=== PATIENT | male | born 1945 | race American Indian/Alaskan Native ===

== ENCOUNTER 2018-05-17 14:24 | Inpatient (IN) | payer MEDICARE, OTHER ==
--- NOTE | 2018-05-17 15:28 | CP.PCM.CON ---
<Ronald Vergara - Last Filed: 05/17/18 18:56> History of Present Illness - History of Present Illness History of Present Illness: GI Fellow PGY4, Consult note. Mino Bermeo is a 73yo M with history of throat cancer s/p trach. He has been having difficulty eating for the 3 days. This was a sudden onset. He is unable to maintain secretions or swallow water. Unfortunately, patient is having difficulty with external voice box, so history is limited. His significant other is at bedside, and does not know his history very well. He states he is not urinating well and it is dark. PET/CT in 01/2017 showed no recurrence of mass. Past medical history - Head and neck cancer, seizure history, COPD PSHx - Tracheostomy. FMHx - unknown SocHx - Previous heavy smoker. Denies current etoh use. 12pt ROS neg except for above. Past Patient History - Past Medical History & Family History Past Medical History?: Yes - Past Social History Smoking Status: Former Smoker - CARDIAC Hx Cardiac Disorders: No - PULMONARY Hx Respiratory Disorders: Yes Hx Asthma: Yes Hx Bronchitis: Yes Hx Chronic Obstructive Pulmonary Disease (COPD): Yes Hx Emphysema: Yes Hx Sleep Apnea: Yes Other/Comment: Permanent tracheostomy 2013, pt. uses [employer] (digital voicebox) to speak due to tracheostomy - NEUROLOGICAL Hx Neurological Disorder: Yes Hx Seizures: Yes (Well controlled with medication) - HEENT Hx HEENT Problems: Yes Other/Comment: blurry vision mild - RENAL Hx Chronic Kidney Disease: No - HEMATOLOGICAL/ONCOLOGICAL Hx Cancer: Yes (Throat cancer) - INTEGUMENTARY Hx Dermatological Problems: No Other/Comment: Dry skin scattered throughout body - MUSCULOSKELETAL/RHEUMATOLOGICAL Hx Musculoskeletal Disorders: Yes Hx Arthritis: Yes (Both Knees) - GASTROINTESTINAL Hx Gastrointestinal Disorders: No - GENITOURINARY/GYNECOLOGICAL Hx Genitourinary Disorders: No - PSYCHIATRIC Hx Psychophysiologic Disorder: No Hx Substance Use: No - SURGICAL HISTORY Hx Surgeries: Yes Other/Comment: Permanent tracheostomy, Neck surgery to remove Ca - ANESTHESIA Hx Anesthesia: Yes Hx Anesthesia Reactions: No Hx Malignant Hyperthermia: No Meds Allergies/Adverse Reactions: Allergies Allergy/AdvReac Type Severity Reaction Status Date / Time No Known Allergies Allergy Unverified 02/11/15 14:52 Physical Exam - Constitutional Appears: Non-toxic, No Acute Distress, Cachectic, Chronically Ill - Head Exam Head Exam: NORMAL INSPECTION - Eye Exam Eye Exam: Normal appearance - ENT Exam ENT Exam: Mucous Membranes Moist - Neck Exam Additional comments: Trachostomy, well healed. - Respiratory Exam Respiratory Exam: Clear to Auscultation Bilateral, NORMAL BREATHING PATTERN - Cardiovascular Exam Cardiovascular Exam: REGULAR RHYTHM - GI/Abdominal Exam GI & Abdominal Exam: Normal Bowel Sounds, Soft. absent: Organomegaly, Tenderness - Extremities Exam Extremities exam: Positive for: normal inspection - Neurological Exam Neurological exam: Alert, Oriented x3 - Psychiatric Exam Psychiatric exam: Normal Affect, Normal Mood - Skin Skin Exam: Dry, Normal Color Results - Vital Signs Recent Vital Signs: Last Vital Signs Temp 98.8 F 05/17/18 15:04 Pulse 91 H 05/17/18 15:04 Resp 18 05/17/18 15:04 BP 128/74 05/17/18 15:04 Pulse Ox 98 05/17/18 15:04 - Labs Result Diagrams: 05/17/18 16:55 05/17/18 16:55 Assessment & Plan - Assessment and Plan (Free Text) Assessment: #Acute dysphagia #Throat cancer s/p trach #Malnourished #Seizure disorder #COPD Plan: -need CBC and CMP -Stat CT neck/chest w/o contrast to evaluate for mass and esophagus. Need to r/ o obstructing mass vs food impaction -He will need EGD urgently to evaluate if concern for food bolus. Plan for tomorrow as he is currently stable, and complex anatomy. -IVF 150cc/hr -NPO - Date & Time Date: 05/17/18 Time: 15:54 <Juaquin Jones V - Last Filed: 05/18/18 00:52> Meds - Medications Medications: Current Medications Albuterol/Ipratropium (Duoneb 3 Mg/0.5 Mg (3 Ml) Ud) 3 ml IH TIDRESP [facility] Heparin Sodium (Porcine) (Heparin) 5,000 units SC Q8 [facility] PRN Reason: Protocol Last Admin: 05/17/18 23:10 Dose: 5,000 units Potassium Chloride 40 meq/ (Dextrose/Sodium Chloride) 1,020 mls @ 75 mls/hr IV .[id number] [facility] Last Admin: 05/17/18 21:09 Dose: 75 mls/hr Levetiracetam 100 mg/ Sodium (Chloride) 101 mls @ 460 mls/hr IV Q12 [facility] Last Admin: 05/17/18 22:03 Dose: 460 mls/hr Lorazepam (Ativan) 1 mg IV Q4 PRN; Protocol PRN Reason: Seizure activity Pantoprazole Sodium (Protonix Inj) 40 mg IVP DAILY [facility] Phenytoin (Dilantin) 100 mg IVP Q8 [facility] Last Admin: 05/17/18 23:11 Dose: 100 mg Results - Vital Signs Recent Vital Signs: Last Vital Signs Temp 99.0 F 05/17/18 23:58 Pulse 95 H 05/17/18 23:58 Resp 20 05/17/18 23:58 BP 127/76 05/17/18 23:58 Pulse Ox 97 05/17/18 21:40 - Labs Result Diagrams: 05/17/18 16:55 05/17/18 16:55 Labs: Laboratory Results - last 24 hr 05/18/18 00:41 POC Glucose (mg/dL) 130 H Attending/Attestation - Attestation I have personally seen and examined this patient.: Yes I have fully participated in the care of the patient.: Yes I have reviewed all pertinent clinical information: Yes Notes (Text): This is an addendum to GI consult report dictated by the GI Fellow.The patient was seen and examined earlier. Medical records, lab studies, imagings were reviewed. Last 24 hours events reviewed. 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 Tapia earlier Discussed with the ER attending We will review the CT scan, IV hydration Plan for EGD Check coagulation profile Discussed with the family 05/18/18 00:49
--- NOTE | 2018-05-17 16:16 | RAD ---
Date of service: 05/17/2018 HISTORY: unable to swallow x 3 days COMPARISON: 06/23/2014 FINDINGS: LUNGS: No active pulmonary disease. PLEURA: No significant pleural effusion identified, no pneumothorax apparent. CARDIOVASCULAR: No radiographic findings to suggest acute or significant cardiovascular disease. OSSEOUS STRUCTURES: No significant abnormalities. VISUALIZED UPPER ABDOMEN: Normal. OTHER FINDINGS: None. IMPRESSION: No active disease. No significant interval change compared to the prior examination(s).
[2018-05-17] MEDS ORDERED: Lactated Ringer's 1,000 ML IV SCH (16:30)
[2018-05-17 17:11] LABS: BASO # 0.03 K/mm3 (0.0-2.0); BASO % 0.3 % (0.0-3.0); EOS # 0.1 (0.0-0.7); EOS % 0.7 % (1.5-5.0); GRAN # 8.99 (1.4-6.5); HEMOGLOBIN 11.7 g/dL (14.0-18.0); LYMPH # 1.8 (1.2-3.4); LYMPH % 15.6 % (22.0-35.0); MEAN CELL VOLUME 90.8 fl (80.0-105.0); MEAN CORPUSCULAR HEMOGLOBIN 29.9 pg (25.0-35.0); MONO # 0.6 (0.1-0.6); MONO % 5.4 % (1.0-6.0); RBC 3.91 10^6/uL (3.5-6.1); RED CELL DISTRIBUTION WIDTH 13.2 % (11.5-14.5); WHITE BLOOD COUNT 11.5 10^3/ul (4.5-11.0)
[2018-05-17 17:20] LABS: ALBUMIN 4.4 g/dL (3.0-4.8); ALT/SGPT 24 U/L (7-56); AST/SGOT 38 U/L (17-59); BLOOD UREA NITROGEN 19 mg/dL (7-21); CALCIUM 10.2 mg/dL (8.4-10.5); GFR NON-AFRICAN AMERICAN > 60
--- NOTE | 2018-05-17 17:27 | ED PDOC ---
Arrival/HPI - General Chief Complaint: ENT Problem Time Seen by Provider: 05/17/18 15:22 Historian: Patient - History of Present Illness Narrative History of Present Illness (Text): 05/17/18 17:13 73yr old male with hx of throat cancer s/p trach presents today with 3 day history of difficulty swallowing. pt unable to tolerate secretions. pt c/o pain to throat. denies fever/chills. no abdominal pain. no cp or sob. pt was sent in from dr. syed's office for evaluation. no dizziness or weakness. states patient hasnt eaten in 3 days. Per , patient was eating normally at home prior to symptoms onset. no fever/chills. no other complaints. Past Medical History - Provider Review Nursing Documentation Reviewed: Yes - Travel History Have you recently traveled outside [place] w/in the past 3 mons?: No - Cardiac Hx Cardiac Disorders: No - Pulmonary Hx Respiratory Disorders: Yes Hx Asthma: Yes Hx Bronchitis: Yes Hx Chronic Obstructive Pulmonary Disease (COPD): Yes Hx Emphysema: Yes Hx Sleep Apnea: Yes Other/Comment: Permanent tracheostomy 2014, pt. uses [employer] (digital voicebox) to speak due to tracheostomy - Neurological Hx Neurological Disorder: Yes Hx Seizures: Yes (Well controlled with medication) - HEENT Hx HEENT Disorder: Yes Other/Comment: blurry vision mild - Renal Hx Renal Disorder: No - Hematological/Oncological Hx Cancer: Yes (Throat cancer) - Integumentary Hx Dermatological Disorder: No Other/Comment: Dry skin scattered throughout body - Musculoskeletal/Rheumatological Hx Musculoskeletal Disorders: Yes Hx Arthritis: Yes (Both Knees) - Gastrointestinal Hx Gastrointestinal Disorders: No - Genitourinary/Gynecological Hx Genitourinary Disorders: No - Psychiatric Hx Psychophysiologic Disorder: No Hx Substance Use: No - Surgical History Other/Comment: Permanent tracheostomy, Neck surgery to remove Ca - Anesthesia Hx Anesthesia: Yes Hx Anesthesia Reactions: No Hx Malignant Hyperthermia: No Family/Social History - Physician Review Nursing Documentation Reviewed: Yes Family/Social History: Unknown Family HX Smoking Status: Former Smoker Hx Alcohol Use: No Hx Substance Use: No Allergies/Home Meds Allergies/Adverse Reactions: Allergies No Known Allergies Allergy (Unverified 02/11/15 14:52) Home Medications: Home Meds Medication Instructions Recorded Confirmed Hydrocortisone 2.5% 30 applic TOP BID 04/14/15 04/23/15 Levocetirizine Dihydrochloride 5 mg PO DAILY 04/14/15 04/23/15 [Levocetirizine Dihydrochloride] Montelukast [Singulair] 10 mg PO DAILY 04/14/15 04/23/15 Omeprazole 40 mg PO DAILY 04/14/15 04/23/15 Phenytoin Sodium Extended 100 mg PO TID 04/14/15 04/23/15 [Dilantin] Tiotropium Bode Inhaler 1 inhaler INH DAILY 04/14/15 04/23/15 [Spiriva Inhalation Handihaler Device] levETIRAcetam Solution [Keppra] 100 mg PO BID 04/14/15 04/23/15 Review of Systems - Review of Systems Constitutional: absent: Fatigue, Fevers ENT: Sore Throat Respiratory: absent: SOB, Cough Cardiovascular: absent: Chest Pain, Palpitations Gastrointestinal: absent: Abdominal Pain, Constipation, Diarrhea, Nausea, Vomiting Genitourinary Male: absent: Dysuria, Frequency Musculoskeletal: absent: Arthralgias, Back Pain, Neck Pain Skin: absent: Rash, Pruritis Neurological: absent: Headache, Dizziness Psychiatric: absent: Anxiety, Depression Physical Exam Vital Signs Reviewed: Yes Vital Signs Temp Pulse Resp BP Pulse Ox 05/17/18 15:04 98.8 F 91 H 18 128/74 98 Temperature: Afebrile Blood Pressure: Normal Pulse: Regular Respiratory Rate: Normal Appearance: Positive for: Well-Appearing, Non-Toxic, Comfortable Pain Distress: None Mental Status: Positive for: Alert and Oriented X 3 - Systems Exam Head: Present: Atraumatic Mouth: Present: Moist Mucous Membranes. No: Trismus Pharnyx: Present: Normal, Other (stoma present; no erythema.). No: ERYTHEMA, EXUDATE, TONSILS ENLARGED, Peritonsilar Swelling, Uvular Deviation Neck: Present: Normal Range of Motion Respiratory/Chest: Present: Clear to Auscultation, Good Air Exchange. No: Respiratory Distress, Accessory Muscle Use Cardiovascular: Present: Regular Rate and Rhythm, Normal S1, S2. No: Murmurs Medical Decision Making ED Course and Treatment: 05/17/18 17:38 73yr old male with difficulty swallowing x 3 days. cbc; wbc;11.5 cmp; wnl pt was seen and evaluated by dr. kunal who ordered CT of neck and chest without contrast. pt unable to tolerate secretions, spitting into cup, but resting comfortably. pt reassessment; pt resting comfortably in er. no distress. CT; FINDINGS: PHARYNX: Larger tracheotomy defect. At at or just above the level of the tracheotomy there is a large round/elliptical shaped soft tissue mass density, the epicenter of which is located on the right side although does cross midline anteriorly and to a lesser degree posteriorly to the level of the posterior oropharynx. Note that the true vocal cords may have been true vocal cords and arytenoid cartilages are not visualized on this exam and may have been resected however clinical correlation. This lesion measures approximately 5.7 CC x 3.7 Trans x 3.6 AP. Lesion probably represents recurrent tumor given the patient's findings of what probably were a total laryngectomy. The approximately 2.9 mm calcification along the anterior superior margin of this lesion. The additionally, there also appears to be extension into the anterior subcutaneous tissues in the submandibular region. . There may also be debris within the oropharynx above the level of the mass . There are a few small nonspecific bilateral cervical lymph nodes LYMPH NODES: There are a few small left posterior submandibular lymph nodes. VASCULATURE: Poorly delineated due to the lack of circulating intravenous contrast material. GLANDS: Parotid and left submandibular gland appear unremarkable. Right submandibular gland presumably has been resected with surrounding infiltration and scarring changes in the anterolateral soft tissues of the neck of superficial to the expected surgical bed. CERVICAL SPINE: Multilevel degenerative spondylosis of the cervical spine. There are no acute compression fractures no retropulsed fragments. Vertebral bodies exhibit normal stature and alignment. LUNGS: And centrilobular and panlobular emphysematous changes with multiple of blebs and bullous changes in the upper lobes right greater than left. The no focal consolidation. No obvious parenchymal masses. MEDIASTINUM: Heart size within range of normal. No significant pericardial effusion. The the ascending thoracic aorta measures approximately 3 point 7 cm and descending thoracic aorta measures approximately 2.6 cm. Pulmonary trunk measures approximately 2.7 cm. Normal sized heart. Pulmonary arterial truck unremarkable. No vascular congestion. There are several small nonspecific mediastinal lymph nodes. Evaluation for hilar adenopathy limited due to the lack of circulating intravenous contrast material. PLEURA: No pleural fluid. No pneumothorax. BONES: No acute compression fractures no retropulsed fragments. Vertebral bodies exhibit normal stature. Multilevel partially bridging anterior osteophyte formation throughout the upper through the lower thoracic and upper lumbar region No definitive suspicious lytic or blastic lesions are identified. OTHER FINDINGS: Large partially exophytic cortical cyst arising from the lateral mid to -upper pole left kidney. . Mildly enlarged left adrenal gland. IMPRESSION: There is a large soft tissue mass density on the epicenter of which is located in presumably expected location of the glottis to the right of midline in this patient who appears to have been total laryngectomy. . 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 There may also be extension into the anterior subcutaneous tissues on the right side. Apparent resection right submandibular gland with overlying subcutaneous infiltration and scarring. Centrilobular emphysematous changes upper lobe predominance with multiple blebs and bullous changes upper lung segura bilaterally. 05/17/18 18:51 patient with large soft tissue mass affected swallowing. i discussed results with patient in depth; pt is resting comfortably in er. no distress. case discussed with dr. Roe. accepts admission. impression; oropharyngeal mass, dysphagia admit - Lab Interpretations Lab Results: 05/17/18 16:55 05/17/18 16:55 Lab Results 05/17/18 16:55: WBC 11.5 H D, RBC 3.91, Hgb 11.7 L, Hct 35.5 L, MCV 90.8, MCH 29.9, MCHC 33.0, RDW 13.2, Plt Count 466 H, MPV 10.0, Gran % 78.0 H, Lymph % ( Auto) 15.6 L, Wetzel % (Auto) 5.4, Eos % (Auto) 0.7 L, Baso % (Auto) 0.3, Gran # 8.99 H, Lymph # (Auto) 1.8, Wetzel # (Auto) 0.6, Eos # (Auto) 0.1, Baso # (Auto) 0.03 05/17/18 16:55: Sodium 146, Potassium 3.5 L, Chloride 105, Carbon Dioxide 26, Anion Gap 19, BUN 19, Creatinine 0.9, Est GFR ( Amer) > 60, Est GFR (Non- Af Amer) > 60, Random Glucose 116 H, Calcium 10.2, Total Bilirubin 0.6, AST 38, ALT 24, Alkaline Phosphatase 107, Total Protein 8.9 H, Albumin 4.4, Globulin 4.5 , Albumin/Globulin Ratio 1.0 L - RAD Interpretation Radiology Orders: 05/17/18 15:23 CHEST PORTABLE [RAD] Stat 05/17/18 16:16 NECK & CHEST W/O CONTRAST [CT] Stat - Medication Orders Current Medication Orders: Albuterol/Ipratropium (Duoneb 3 Mg/0.5 Mg (3 Ml) Ud) 3 ml IH TIDRESP [facility] Potassium Chloride 40 meq/ (Dextrose/Sodium Chloride) 1,020 mls @ 75 mls/hr IV .[id number] [facility] Levetiracetam 100 mg/ Sodium (Chloride) 101 mls @ 460 mls/hr IV Q12 [facility] Pantoprazole Sodium (Protonix Inj) 40 mg IVP DAILY [facility] Phenytoin (Dilantin) 100 mg IVP Q8 [facility] Discontinued Medications Lactated Ringer's (Lactated Ringer's) 1,000 mls @ 70 mls/hr IV .[id number] [facility] Last Admin: 05/17/18 17:03 Dose: 70 mls/hr eMAR Start Stop Document 05/17/18 17:03 EQ (Rec: 05/17/18 17:03 EQ [id number]) Intravenous Solution Start Date 05/17/18 Start Time 17:03 Disposition/Present on Arrival - Present on Arrival Any Indicators Present on Arrival: No History of DVT/PE: No History of Uncontrolled Diabetes: No Urinary Catheter: No History of Decub. Ulcer: No History Surgical Site Infection Following: None - Disposition Have Diagnosis and Disposition been Completed?: Yes Diagnosis: Oropharyngeal mass, Dysphagia Disposition: HOSPITALIZED Disposition Time: 18:57 Patient Plan: Admission Condition: FAIR
--- NOTE | 2018-05-17 18:46 | CT ---
Date of service: 05/17/2018. PROCEDURE: CT Neck and chest HISTORY: Dysphagia. COMPARISON: Comparison made with prior PET-CT scan 01/19/2017. TECHNIQUE: Contiguous helical/transaxial sections of the neck and chest performed without intravenous contrast material. Additional 2D sagittal and coronal reformats generated. This CT exam was performed using one or more of the following dose reduction techniques: Automated exposure control, adjustment of the mA and/or kV according to patient size, and/or use of iterative reconstruction technique. Radiation dose: Total DLP = 400.46 MGy-cm. FINDINGS: PHARYNX: Larger tracheotomy defect. At at or just above the level of the tracheotomy there is a large round/elliptical shaped soft tissue mass density, the epicenter of which is located on the right side although does cross midline anteriorly and to a lesser degree posteriorly to the level of the posterior oropharynx. Note that the true vocal cords may have been true vocal cords and arytenoid cartilages are not visualized on this exam and may have been resected however clinical correlation. This lesion measures approximately 5.7 CC x 3.7 Trans x 3.6 AP. Lesion probably represents recurrent tumor given the patient's findings of what probably were a total laryngectomy. The approximately 2.9 mm calcification along the anterior superior margin of this lesion. The additionally, there also appears to be extension into the anterior subcutaneous tissues in the submandibular region. . There may also be debris within the oropharynx above the level of the mass . There are a few small nonspecific bilateral cervical lymph nodes LYMPH NODES: There are a few small left posterior submandibular lymph nodes. VASCULATURE: Poorly delineated due to the lack of circulating intravenous contrast material. GLANDS: Parotid and left submandibular gland appear unremarkable. Right submandibular gland presumably has been resected with surrounding infiltration and scarring changes in the anterolateral soft tissues of the neck of superficial to the expected surgical bed. CERVICAL SPINE: Multilevel degenerative spondylosis of the cervical spine. There are no acute compression fractures no retropulsed fragments. Vertebral bodies exhibit normal stature and alignment. LUNGS: And centrilobular and panlobular emphysematous changes with multiple of blebs and bullous changes in the upper lobes right greater than left. The no focal consolidation. No obvious parenchymal masses. MEDIASTINUM: Heart size within range of normal. No significant pericardial effusion. The the ascending thoracic aorta measures approximately 3 point 7 cm and descending thoracic aorta measures approximately 2.6 cm. Pulmonary trunk measures approximately 2.7 cm. Normal sized heart. Pulmonary arterial truck unremarkable. No vascular congestion. There are several small nonspecific mediastinal lymph nodes. Evaluation for hilar adenopathy limited due to the lack of circulating intravenous contrast material. PLEURA: No pleural fluid. No pneumothorax. BONES: No acute compression fractures no retropulsed fragments. Vertebral bodies exhibit normal stature. Multilevel partially bridging anterior osteophyte formation throughout the upper through the lower thoracic and upper lumbar region No definitive suspicious lytic or blastic lesions are identified. OTHER FINDINGS: Large partially exophytic cortical cyst arising from the lateral mid to -upper pole left kidney. . Mildly enlarged left adrenal gland. IMPRESSION: There is a large soft tissue mass density on the epicenter of which is located in presumably expected location of the glottis to the right of midline in this patient who appears to have been total laryngectomy. . 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 There may also be extension into the anterior subcutaneous tissues on the right side. Apparent resection right submandibular gland with overlying subcutaneous infiltration and scarring. Centrilobular emphysematous changes upper lobe predominance with multiple blebs and bullous changes upper lung segura bilaterally. .
--- NOTE | 2018-05-17 19:30 | CP.PCM.HP ---
<Carly Villasenor - Last Filed: 05/17/18 22:36> History of Present Illness - History of Present Illness History of Present Illness: PGY-[address] Reardon CC: dysphagia x 3 days Mr Bermeo, 73 M, with PMHx throat cancer (Dx 2013) s/p trach presents today with 3 day history of difficulty swallowing, sudden onset. patient is having difficulty with external voice box, so history is limited. pt unable to tolerate secretions, spitting into cups, but resting comfortably. Denies pain to throat. denies fever/chills. no abdominal pain. no cp or sob. pt was sent in from dr. jones's office for evaluation. Per , patient was eating normally at home prior to symptoms onset. However, pt did not take any meds lately. I called pt's , daughter, and sister to obtained history and verify meds/doctors, but none were able to provide the info. cbc: wbc: 11.5 cmp: K 3.5 CT neck/chest: (+) large soft tissue mass density on the epicenter of which is located in presumably expected location of the glottis to the right of midline in this patient who appears to have been total laryngectomy. . 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 There may also be extension into the anterior subcutaneous tissues on the right side. Apparent resection right submandibular gland with overlying subcutaneous infiltration and scarring. Centrilobular emphysematous changes upper lobe predominance with multiple blebs and bullous changes upper lung segura bilaterally. ROS - no dizziness or weakness. states patient hasnt eaten in 3 days. no fever/chills. no other complaints. PMHx Throat cancer, s/p trach COPD Seizure Arthritis in knees ? Diabetes PSH Tracheostomy 2013 FH Mother colon ca. Brother 3 years ago for liver ca SH Previous heavy smoker. Denies current etoh use. All NKDA Med Levocetirizine Monteluksat, toptropium Phenytoin, Keppra Omperazole PMD - Dr Alvarado GI - Dr Jones Onc - "A doctor" in [facility] - Dr Allen Health care proxy: Pt has a , but pt's sister helps make decision. However, there is no signed paper to document health proxy. Present on Admission - Present on Admission Any Indicators Present on Admission: No Past Patient History - Past Medical History & Family History Past Medical History?: Yes - Past Social History Smoking Status: Former Smoker - CARDIAC Hx Cardiac Disorders: No - PULMONARY Hx Respiratory Disorders: Yes Hx Asthma: Yes Hx Bronchitis: Yes Hx Chronic Obstructive Pulmonary Disease (COPD): Yes Hx Emphysema: Yes Hx Sleep Apnea: Yes Other/Comment: Permanent tracheostomy 2013, pt. uses [employer] (digital voicebox) to speak due to tracheostomy - NEUROLOGICAL Hx Neurological Disorder: Yes Hx Seizures: Yes (Well controlled with medication) - HEENT Hx HEENT Problems: Yes Other/Comment: blurry vision mild - RENAL Hx Chronic Kidney Disease: No - HEMATOLOGICAL/ONCOLOGICAL Hx Cancer: Yes (Throat cancer) - INTEGUMENTARY Hx Dermatological Problems: No Other/Comment: Dry skin scattered throughout body - MUSCULOSKELETAL/RHEUMATOLOGICAL Hx Musculoskeletal Disorders: Yes Hx Arthritis: Yes (Both Knees) - GASTROINTESTINAL Hx Gastrointestinal Disorders: No - GENITOURINARY/GYNECOLOGICAL Hx Genitourinary Disorders: No - PSYCHIATRIC Hx Psychophysiologic Disorder: No Hx Substance Use: No - SURGICAL HISTORY Other/Comment: Permanent tracheostomy, Neck surgery to remove Ca - ANESTHESIA Hx Anesthesia: Yes Hx Anesthesia Reactions: No Hx Malignant Hyperthermia: No Meds Allergies/Adverse Reactions: Allergies Allergy/AdvReac Type Severity Reaction Status Date / Time No Known Allergies Allergy Unverified 02/11/15 14:52 Physical Exam - Constitutional Appears: No Acute Distress Additional comments: Pt holding cup to contain his saliva, no blood - Head Exam Head Exam: ATRAUMATIC, NORMAL INSPECTION, NORMOCEPHALIC - Eye Exam Eye Exam: EOMI, Normal appearance, PERRL. absent: Scleral icterus Pupil Exam: NORMAL ACCOMODATION - ENT Exam ENT Exam: Mucous Membranes Moist Additional comments: slightly injected throats. No visible edema - Neck Exam Additional comments: dressing of trach d/c/i - Respiratory Exam Respiratory Exam: Clear to Auscultation Bilateral. absent: Rales, Rhonchi, Wheezes - Cardiovascular Exam Cardiovascular Exam: REGULAR RHYTHM, +S1, +S2. absent: Systolic Murmur - GI/Abdominal Exam GI & Abdominal Exam: Normal Bowel Sounds, Soft. absent: Distended, Firm, Rigid , Tenderness - Extremities Exam Extremities exam: Positive for: normal capillary refill, pedal pulses present. Negative for: calf tenderness, pedal edema - Back Exam Back exam: absent: CVA tenderness (L), CVA tenderness (R) - Neurological Exam Neurological exam: Alert, Oriented x3 - Psychiatric Exam Psychiatric exam: Normal Affect, Normal Mood - Skin Skin Exam: Dry, Warm Results - Vital Signs Recent Vital Signs: Last Vital Signs Temp 98.8 F 05/17/18 15:04 Pulse 91 H 05/17/18 15:04 Resp 18 05/17/18 15:04 BP 128/74 05/17/18 15:04 Pulse Ox 98 05/17/18 15:04 - Labs Result Diagrams: 05/17/18 16:55 05/17/18 16:55 Labs: Laboratory Results - last 24 hr 05/17/18 05/17/18 16:55 16:55 WBC 11.5 H D RBC 3.91 Hgb 11.7 L Hct 35.5 L MCV 90.8 MCH 29.9 MCHC 33.0 RDW 13.2 Plt Count 466 H MPV 10.0 Gran % 78.0 H Lymph % (Auto) 15.6 L [place] % (Auto) 5.4 Eos % (Auto) 0.7 L Baso % (Auto) 0.3 Gran # 8.99 H Lymph # (Auto) 1.8 [place] # (Auto) 0.6 Eos # (Auto) 0.1 Baso # (Auto) 0.03 Sodium 146 Potassium 3.5 L Chloride 105 Carbon Dioxide 26 Anion Gap 19 BUN 19 Creatinine 0.9 Est GFR ( Amer) > 60 Est GFR (Non-Af Amer) > 60 Random Glucose 116 H Calcium 10.2 Total Bilirubin 0.6 AST 38 ALT 24 Alkaline Phosphatase 107 Total Protein 8.9 H Albumin 4.4 Globulin 4.5 Albumin/Globulin Ratio 1.0 L Assessment & Plan - Assessment and Plan (Free Text) Plan: Mr Bermeo, 73 M, with PMHx seizure and throat cancer (Dx 2012) s/p trach presents today with 3 day history of difficulty swallowing, sudden onset, and skipped meds Dysphagia possibly due to mass in glottic area (+) large soft tissue mass density R glottic area s/p total laryngectomy, suspicious on mets - NPO; D5/NS with K@75cc/hr - urgent EGD planning. - Continue POx; O2 PRN - GI, ENT consult - aspiration precaution - suction prn Hx seizure - IV keppra and dilantin - ativan q4 prn for breakthrough seizure Hx COPD - Duoneb ? diabetes - Check A1C - Accu check. Hold ISSS for now Care planning - Find out who oncologist is. Need oncology consult - Pt will need help to draft healthcare proxy paper - Pt has a , but pt's [place] helps make decision. However, there is no signed paper to document health proxy. - palliative consult Prophylaxus - heparin SC and protonix IV s/r/d/w Dr Roe <Jesu Roe - Last Filed: 05/18/18 06:38> Results - Vital Signs Recent Vital Signs: Last Vital Signs Temp 98.6 F 05/18/18 05:45 Pulse 85 05/18/18 05:45 Resp 20 05/18/18 05:45 BP 126/82 05/18/18 05:45 Pulse Ox 97 05/18/18 05:45 - Labs Result Diagrams: 05/17/18 16:55 05/17/18 16:55 Labs: Laboratory Results - last 24 hr 05/18/18 05/18/18 00:41 06:23 POC Glucose (mg/dL) 130 H 122 H Attending/Attestation - Attestation I have personally seen and examined this patient.: Yes I have fully participated in the care of the patient.: Yes I have reviewed all pertinent clinical information: Yes
[2018-05-17] MEDS: Potassium Chloride 40 MEQ in Dextrose 5%/0.9% NS 1,000 ML IV SCH (21:09)
[2018-05-17] MEDS: levETIRAcetam 100 MG in Sodium Chloride 0.9% 100 ML IV SCH (22:03)
[2018-05-17] MEDS: Phenytoin 100 mg/2 ml Inj IVP SCH (23:11)
[2018-05-18 00:07] VITALS: BMI 24.7
[2018-05-18] MEDS: Phenytoin 100 mg/2 ml Inj IVP SCH ×3 (06:13→22:25)
[2018-05-18] MEDS: Albuterol-Ipratrop 3 mg / 0.5 (3 ml) UD IH SCH ×3 (07:37→19:44)
[2018-05-18 08:02] LABS: INR 1.35; PROTHROMBIN TIME 15.6 SECONDS (9.4-12.5)
[2018-05-18 08:21] LABS: BASO # 0.02 K/mm3 (0.0-2.0); BASO % 0.2 % (0.0-3.0); EOS # 0.1 (0.0-0.7); EOS % 0.7 % (1.5-5.0); GRAN # 7.17 (1.4-6.5); GRAN % 79.8 % (50.0-68.0); HEMOGLOBIN 10.4 g/dL (14.0-18.0); LYMPH # 1.1 (1.2-3.4); LYMPH % 12.3 % (22.0-35.0); MEAN CELL VOLUME 90.4 fl (80.0-105.0); MEAN CORPUSCULAR HEMOGLOBIN 29.3 pg (25.0-35.0); MEAN CORPUSCULAR HGB CONC 32.4 g/dl (31.0-37.0); MEAN PLATELET VOLUME 10.1 fl (7.0-11.0); MONO # 0.6 (0.1-0.6); RBC 3.55 10^6/uL (3.5-6.1); RED CELL DISTRIBUTION WIDTH 13.1 % (11.5-14.5)
[2018-05-18 08:31] LABS: ALBUMIN 3.8 g/dL (3.0-4.8); ALT/SGPT 24 U/L (7-56); AST/SGOT 28 U/L (17-59); BLOOD UREA NITROGEN 14 mg/dL (7-21); CALCIUM 9.6 mg/dL (8.4-10.5); GFR NON-AFRICAN AMERICAN > 60
[2018-05-18] MEDS: levETIRAcetam 100 MG in Sodium Chloride 0.9% 100 ML IV SCH ×2 (09:36→22:24)
[2018-05-18] MEDS: Potassium Chloride 40 MEQ in Dextrose 5%/0.9% NS 1,000 ML IV SCH (09:37)
--- NOTE | 2018-05-18 10:38 | CP.PCM.PN ---
<Myron Amezquita - Last Filed: 05/18/18 10:38> Subjective - Date & Time of Evaluation Date of Evaluation: 05/18/18 Time of Evaluation: 09:30 - Subjective Subjective: PGY6 GI Fellow Progress Note Patient seen and examined bedside this morning. Patient is unable to tolerate saliva and is spitting in to a basin at bedside. Admits to pain with attempts at swallowing. No events overnight. 12 system ROS performed and negative except where stated Objective - Vital Signs/Intake and Output Vital Signs (last 24 hours): Temp Pulse Resp BP Pulse Ox 98.6 F 85 20 126/82 97 05/18/18 05:45 05/18/18 07:44 05/18/18 05:45 05/18/18 05:45 05/18/18 05:45 Intake and Output: 05/18/18 05/18/18 06:59 18:59 Intake Total 1000 Output Total 150 Balance 850 - Medications Medications: Current Medications Albuterol/Ipratropium (Duoneb 3 Mg/0.5 Mg (3 Ml) Ud) 3 ml IH TIDRESP [facility] Last Admin: 05/18/18 07:37 Dose: 3 ml Heparin Sodium (Porcine) (Heparin) 5,000 units SC Q8 [facility] PRN Reason: Protocol Last Admin: 05/18/18 06:13 Dose: 5,000 units Potassium Chloride 40 meq/ (Dextrose/Sodium Chloride) 1,020 mls @ 75 mls/hr IV .[id number] [facility] Last Admin: 05/18/18 09:37 Dose: 75 mls/hr Levetiracetam 100 mg/ Sodium (Chloride) 101 mls @ 460 mls/hr IV Q12 [facility] Last Admin: 05/18/18 09:36 Dose: 460 mls/hr Lorazepam (Ativan) 1 mg IV Q4 PRN; Protocol PRN Reason: Seizure activity Pantoprazole Sodium (Protonix Inj) 40 mg IVP DAILY [facility] Last Admin: 05/18/18 09:38 Dose: 40 mg Phenytoin (Dilantin) 100 mg IVP Q8 [facility] Last Admin: 05/18/18 06:13 Dose: 100 mg - Labs Labs: 05/18/18 06:45 05/18/18 06:45 PT 15.6 SECONDS (9.4-12.5) H 05/18/18 06:45 INR 1.35 05/18/18 06:45 - Constitutional Appears: No Acute Distress, Chronically Ill - Eye Exam Eye Exam: EOMI, PERRL - ENT Exam ENT Exam: Mucous Membranes Moist Additional comments: tracheostomy - Respiratory Exam Respiratory Exam: Clear to Ausculation Bilateral. absent: Rales, Rhonchi, Wheezes - Cardiovascular Exam Cardiovascular Exam: RRR, +S1, +S2 - GI/Abdominal Exam GI & Abdominal Exam: Soft, Normal Bowel Sounds. absent: Distended, Firm, Guarding, Rigid, Tenderness, Organomegaly - Extremities Exam Extremities Exam: Normal Inspection. absent: Pedal Edema - Neurological Exam Neurological Exam: Alert, Awake, Oriented x3 - Psychiatric Exam Psychiatric exam: Normal Affect, Normal Mood - Skin Skin Exam: Dry, Warm Assessment and Plan - Assessment and Plan (Free Text) Assessment: Patient is a 73yo male with PMHx significant for laryngeal cancer s/p tracheostomy who presents with 3 days of dysphagia -Acute dysphagia -Abnormal CT scan of neck showing laryngeal mass lesion -Seizure disorder -COPD Plan: -Not tolerating secretions presently -Plan for EGD this afternoon, please maintain NPO order -CT reviewed with laryngeal lesion noted; appears to be completely obstructing esophagus -Concern for the development of airway compromise with new lesion -If endoscope is unable to pass to esophagus, there is no way to place PEG tube for nutrition and patient would require surgical or IR evaluation -Plan per findings <Juaquin Jones V - Last Filed: 05/18/18 22:12> Objective - Vital Signs/Intake and Output Vital Signs (last 24 hours): Temp Pulse Resp BP Pulse Ox 97.3 F L 86 19 130/80 97 05/18/18 18:00 05/18/18 18:00 05/18/18 18:00 05/18/18 18:00 05/18/18 05:45 - Medications Medications: Current Medications Albuterol/Ipratropium (Duoneb 3 Mg/0.5 Mg (3 Ml) Ud) 3 ml IH TIDRESP [facility] Last Admin: 05/18/18 19:44 Dose: 3 ml Heparin Sodium (Porcine) (Heparin) 5,000 units SC Q8 [facility] PRN Reason: Protocol Last Admin: 05/18/18 13:37 Dose: Not Given Potassium Chloride 40 meq/ (Dextrose/Sodium Chloride) 1,020 mls @ 75 mls/hr IV .[id number] [facility] Last Admin: 05/18/18 09:37 Dose: 75 mls/hr Levetiracetam 100 mg/ Sodium (Chloride) 101 mls @ 460 mls/hr IV Q12 [facility] Last Admin: 05/18/18 09:36 Dose: 460 mls/hr Lorazepam (Ativan) 1 mg IV Q4 PRN; Protocol PRN Reason: Seizure activity Pantoprazole Sodium (Protonix Inj) 40 mg IVP DAILY [facility] Last Admin: 05/18/18 09:38 Dose: 40 mg Phenytoin (Dilantin) 100 mg IVP Q8 [facility] Last Admin: 05/18/18 14:06 Dose: 100 mg - Labs Labs: 05/18/18 06:45 05/18/18 06:45 PT 15.6 SECONDS (9.4-12.5) H 05/18/18 06:45 INR 1.35 05/18/18 06:45 Attending/Attestation - Attestation Notes (Text): This is an addendum to GI progress report dictated by the GI Fellow.The patient was seen and examined earlier. Medical records, lab studies, imagings were reviewed. Last 24 hours events reviewed. Agreed with the above treatment plan as outlined in GI Fellow 's notes with the addition of the following EGD today was canceled as per the anesthesiologist Anesthesia was very concerned about the present tracheostomy they would like to have tracheostomy cuff tube placement prior to any procedures which involves anesthesia Anesthesiologist I discussed with the ENT surgeon Dr. Tapia The plan is to await for the ENT to place cough tracheostomy tube placement then consider endoscopy for evaluan The CT scan was reviewed There was a large mass which probably obstructing the cricopharngell area and the possibility of endoscopic passage through this lesion is less likely to be successful. However in view of this acute dysphasia it is reasonable to attempt EGD. PEG tube is not possible in him with this large obstructing lesion involving the cervical esophageal area. even the CT-guided PEG tube may not be possible as it involves gastric distention by passage of the NG tube patient would require surgicagastrostomy The lesion appears to compress the cervical esophageal area 05/18/18 22:04
--- NOTE | 2018-05-18 11:21 | CP.PCM.PN ---
<Ted Andre - Last Filed: 05/18/18 11:27> Subjective - Date & Time of Evaluation Date of Evaluation: 05/18/18 Time of Evaluation: 08:00 - Subjective Subjective: Patient seen and examined at bedside in no acute distress. Patient however is unable to communicate verbally so communication was done through writing. Patient states his dysphagia and dysphonia are both sudden in nature as last week he had no issues with either. ROS negative except as mentioned above. Objective - Vital Signs/Intake and Output Vital Signs (last 24 hours): Temp Pulse Resp BP Pulse Ox 98.6 F 85 20 126/82 97 05/18/18 05:45 05/18/18 07:44 05/18/18 05:45 05/18/18 05:45 05/18/18 05:45 Intake and Output: 05/18/18 05/18/18 06:59 18:59 Intake Total 1000 Output Total 150 Balance 850 - Medications Medications: Current Medications Albuterol/Ipratropium (Duoneb 3 Mg/0.5 Mg (3 Ml) Ud) 3 ml IH TIDRESP [facility] Last Admin: 05/18/18 07:37 Dose: 3 ml Heparin Sodium (Porcine) (Heparin) 5,000 units SC Q8 [facility] PRN Reason: Protocol Last Admin: 05/18/18 06:13 Dose: 5,000 units Potassium Chloride 40 meq/ (Dextrose/Sodium Chloride) 1,020 mls @ 75 mls/hr IV .[id number] [facility] Last Admin: 05/18/18 09:37 Dose: 75 mls/hr Levetiracetam 100 mg/ Sodium (Chloride) 101 mls @ 460 mls/hr IV Q12 [facility] Last Admin: 05/18/18 09:36 Dose: 460 mls/hr Lorazepam (Ativan) 1 mg IV Q4 PRN; Protocol PRN Reason: Seizure activity Pantoprazole Sodium (Protonix Inj) 40 mg IVP DAILY [facility] Last Admin: 05/18/18 09:38 Dose: 40 mg Phenytoin (Dilantin) 100 mg IVP Q8 [facility] Last Admin: 05/18/18 06:13 Dose: 100 mg - Labs Labs: 05/18/18 06:45 05/18/18 06:45 PT 15.6 SECONDS (9.4-12.5) H 05/18/18 06:45 INR 1.35 05/18/18 06:45 - Constitutional Appears: Non-toxic, No Acute Distress - Head Exam Head Exam: ATRAUMATIC, NORMAL INSPECTION, NORMOCEPHALIC - Eye Exam Eye Exam: EOMI, Normal appearance - ENT Exam ENT Exam: Mucous Membranes Moist, Normal Exam - Neck Exam Additional comments: permanent trach; no drainage - Respiratory Exam Respiratory Exam: Clear to Ausculation Bilateral, NORMAL BREATHING PATTERN. absent: Rhonchi, Wheezes - Cardiovascular Exam Cardiovascular Exam: REGULAR RHYTHM, +S1, +S2 - GI/Abdominal Exam GI & Abdominal Exam: Soft, Normal Bowel Sounds - Back Exam Back Exam: NORMAL INSPECTION - Neurological Exam Neurological Exam: Alert, Awake, Oriented x3 - Psychiatric Exam Psychiatric exam: Normal Affect, Normal Mood - Skin Skin Exam: Normal Color, Warm Assessment and Plan - Assessment and Plan (Free Text) Assessment: Patient is 73 M with PMHx seizure and throat cancer (Dx 2013) s/p trach presenting with a 3 day history of dysphagia and dysphonia. Dysphagia possibly due to mass in glottic area (+) large soft tissue mass density R glottic area s/p total laryngectomy, suspicious of mets - NPO; D5/NS with K@75cc/hr - Continue O2 PRN - GI, ENT, Heme/Onc consulted; recommendations appreciated - Continue with aspiration precautions and suction prn Hx seizure - Continue IV keppra and dilantin - Continue ativan q4 prn for breakthrough seizure Hx COPD - Continue Duonebs Dispo - Pt will need help to draft healthcare proxy paper - Pt has a , but pt's sister ([place], [place] helps make decision. However, there is no signed paper to document health proxy. - palliative consult Prophylaxis - heparin SC and protonix IV <Dejah Lang - Last Filed: 05/19/18 15:14> Objective - Vital Signs/Intake and Output Vital Signs (last 24 hours): Temp Pulse Resp BP Pulse Ox 98.8 F 76 19 137/80 97 05/19/18 11:59 05/19/18 11:59 05/19/18 11:59 05/19/18 11:59 05/19/18 06:00 Intake and Output: 05/19/18 05/19/18 06:59 18:59 Intake Total 0 Output Total 200 Balance -200 - Medications Medications: Current Medications Albuterol/Ipratropium (Duoneb 3 Mg/0.5 Mg (3 Ml) Ud) 3 ml IH TIDRESP [facility] Last Admin: 05/19/18 13:28 Dose: 3 ml Heparin Sodium (Porcine) (Heparin) 5,000 units SC Q8 [facility] PRN Reason: Protocol Last Admin: 05/19/18 14:53 Dose: 5,000 units Levetiracetam 100 mg/ Sodium (Chloride) 101 mls @ 460 mls/hr IV Q12 [facility] Last Admin: 05/19/18 10:51 Dose: 460 mls/hr Phenytoin 100 mg/ Sodium (Chloride) 52 mls @ 104 mls/hr IVPB Q8 [facility] Last Admin: 05/19/18 14:50 Dose: 104 mls/hr Multivitamins/Vitamin C 10 ml/ (Amino Acids) 2,010 mls @ 83 mls/hr IV .Q24H [facility] Stop: 05/22/18 17:59 Fat Emulsion Intravenous (Intralipid 20%) 250 mls @ 21 mls/hr IV MWF@1800 [facility] Stop: 05/22/18 17:59 Lorazepam (Ativan) 1 mg IV Q4 PRN; Protocol PRN Reason: Seizure activity Pantoprazole Sodium (Protonix Inj) 40 mg IVP DAILY [facility] Last Admin: 05/19/18 10:51 Dose: 40 mg - Labs Labs: 05/19/18 06:30 05/19/18 06:30 PT 15.6 SECONDS (9.4-12.5) H 05/18/18 06:45 INR 1.35 05/18/18 06:45 Attending/Attestation - Attestation I have personally seen and examined this patient.: Yes I have fully participated in the care of the patient.: Yes I have reviewed all pertinent clinical information, including history, physical exam and plan: Yes Notes (Text): 05/19/18 15:12 Medical record note made by the resident after discussion with my direction and input after the patient was personally seen and examined by me. I have reviewed the chart and agree that the record accurately reflects by personal performance of the history, physical exam, data review, and medical decision-making, in the course for the patient. I have also personally directed the plan of care. 73yo male with PMHx significant for laryngeal cancer s/p tracheostomy,seizure disorder,COPD was sent by ENT with 3 days of dysphagia, abnormal CT scan of neck showing laryngeal mass lesion.Patient is NPO, on IV fluid.Case was discussed with GI.Plan for EGD next week .Patient will likely need PEG tube placement. Seizure disorder, continue Keppra.
--- NOTE | 2018-05-18 12:14 | CP.PCM.CON ---
History of Present Illness - History of Present Illness History of Present Illness: 73 y/o AA male with hx of laryngeal CA-s/p laryngectomy and hx of radiation. Pt has been doing well for years. He has had recent onset of dysphagia. CT performed today in hospital shows possible cancer recurrence. I have discussed the case with GI who will perform endoscopy with biopsy. PMHX. Laryngeal cancer s/p ;laryngectomy with neck dissections, COPD, Seizure, Arthritis, ?Diabetes FHx: mother colon CA, brother liver cancer 3 yrs ago= All: NKDA MEds levocetrizine, monolukast, toptropium, phenytoin, keppra, omeprazole Review of Systems - Constitutional Constitutional: As Per HPI - EENT Eyes: As Per HPI Ears: As Per HPI Nose/Mouth/Throat: As Per HPI - Cardiovascular Cardiovascular: As Per HPI - Respiratory Respiratory: As Per HPI - Gastrointestinal Gastrointestinal: As Per HPI - Musculoskeletal Musculoskeletal: As Per HPI - Integumentary Integumentary: As Per HPI - Neurological Neurological: As Per HPI - Psychiatric Psychiatric: As Per HPI Past Patient History - Past Medical History & Family History Past Medical History?: Yes - Past Social History Smoking Status: Former Smoker - CARDIAC Hx Cardiac Disorders: No - PULMONARY Hx Respiratory Disorders: Yes Hx Asthma: Yes Hx Bronchitis: Yes Hx Chronic Obstructive Pulmonary Disease (COPD): Yes Hx Emphysema: Yes Hx Sleep Apnea: Yes Other/Comment: Permanent tracheostomy 2013, pt. uses [email or web address] digital (digital voicebox) to speak due to tracheostomy - NEUROLOGICAL Hx Neurological Disorder: Yes Hx Seizures: Yes (Well controlled with medication) - HEENT Hx HEENT Problems: Yes Other/Comment: blurry vision mild - RENAL Hx Chronic Kidney Disease: No - ENDOCRINE/METABOLIC Hx Diabetes Mellitus Type 2: Yes (DIET CONTROLLED) - HEMATOLOGICAL/ONCOLOGICAL Hx Cancer: Yes (Throat cancer) - INTEGUMENTARY Hx Dermatological Problems: No Other/Comment: Dry skin scattered throughout body - MUSCULOSKELETAL/RHEUMATOLOGICAL Hx Falls: Yes - GASTROINTESTINAL Hx Gastrointestinal Disorders: No - GENITOURINARY/GYNECOLOGICAL Hx Genitourinary Disorders: No - PSYCHIATRIC Hx Psychophysiologic Disorder: No - SURGICAL HISTORY Other/Comment: Permanent tracheostomy, Neck surgery to remove Ca - ANESTHESIA Hx Anesthesia: Yes Hx Anesthesia Reactions: No Hx Malignant Hyperthermia: No Meds Allergies/Adverse Reactions: Allergies Allergy/AdvReac Type Severity Reaction Status Date / Time No Known Allergies Allergy Unverified 02/11/15 14:52 - Medications Medications: Current Medications Albuterol/Ipratropium (Duoneb 3 Mg/0.5 Mg (3 Ml) Ud) 3 ml IH TIDRESP [facility] Last Admin: 05/18/18 07:37 Dose: 3 ml Heparin Sodium (Porcine) (Heparin) 5,000 units SC Q8 [facility] PRN Reason: Protocol Last Admin: 05/18/18 06:13 Dose: 5,000 units Potassium Chloride 40 meq/ (Dextrose/Sodium Chloride) 1,020 mls @ 75 mls/hr IV .[id number] [facility] Last Admin: 05/18/18 09:37 Dose: 75 mls/hr Levetiracetam 100 mg/ Sodium (Chloride) 101 mls @ 460 mls/hr IV Q12 [facility] Last Admin: 05/18/18 09:36 Dose: 460 mls/hr Lorazepam (Ativan) 1 mg IV Q4 PRN; Protocol PRN Reason: Seizure activity Pantoprazole Sodium (Protonix Inj) 40 mg IVP DAILY [facility] Last Admin: 05/18/18 09:38 Dose: 40 mg Phenytoin (Dilantin) 100 mg IVP Q8 [facility] Last Admin: 05/18/18 06:13 Dose: 100 mg Physical Exam - Constitutional Appears: Well, Non-toxic - Head Exam Head Exam: ATRAUMATIC - Eye Exam Eye Exam: EOMI Pupil Exam: NORMAL ACCOMODATION - ENT Exam ENT Exam: Mucous Membranes Moist - Neck Exam Neck exam: Positive for: Tenderness Additional comments: left side tenderness Results - Vital Signs Recent Vital Signs: Last Vital Signs Temp 98.6 F 05/18/18 05:45 Pulse 85 05/18/18 07:44 Resp 20 05/18/18 05:45 BP 126/82 05/18/18 05:45 Pulse Ox 97 05/18/18 05:45 - Labs Result Diagrams: 05/18/18 06:45 05/18/18 06:45 Labs: Laboratory Results - last 24 hr 05/18/18 05/18/18 05/18/18 00:41 06:23 06:45 WBC 9.0 D RBC 3.55 Hgb 10.4 L Hct 32.1 L MCV 90.4 MCH 29.3 MCHC 32.4 RDW 13.1 Plt Count 433 MPV 10.1 Gran % 79.8 H Lymph % (Auto) 12.3 L [place] % (Auto) 7.0 H Eos % (Auto) 0.7 L Baso % (Auto) 0.2 Gran # 7.17 H Lymph # (Auto) 1.1 L [place] # (Auto) 0.6 Eos # (Auto) 0.1 Baso # (Auto) 0.02 PT INR Sodium Potassium Chloride Carbon Dioxide Anion Gap BUN Creatinine Est GFR ( Amer) Est GFR (Non-Af Amer) POC Glucose (mg/dL) 130 H 122 H Random Glucose Calcium Phosphorus Magnesium Total Bilirubin AST ALT Alkaline Phosphatase Total Protein Albumin Globulin Albumin/Globulin Ratio Blood Type Confirm 05/18/18 05/18/18 05/18/18 06:45 06:45 07:35 WBC RBC Hgb Hct MCV MCH MCHC RDW Plt Count MPV Gran % Lymph % (Auto) [place] % (Auto) Eos % (Auto) Baso % (Auto) Gran # Lymph # (Auto) [place] # (Auto) Eos # (Auto) Baso # (Auto) PT 15.6 H INR 1.35 Sodium 144 Potassium 4.1 Chloride 109 H Carbon Dioxide 27 Anion Gap 11 BUN 14 Creatinine 0.7 L Est GFR ( Amer) > 60 Est GFR (Non-Af Amer) > 60 POC Glucose (mg/dL) Random Glucose 142 H Calcium 9.6 Phosphorus 3.3 Magnesium 2.2 Total Bilirubin 0.5 AST 28 ALT 24 Alkaline Phosphatase 93 Total Protein 7.5 Albumin 3.8 Globulin 3.7 Albumin/Globulin Ratio 1.0 L Blood Type Confirm A POSITIVE Assessment & Plan (1) Dysphagia Status: Acute (2) Oropharyngeal mass Status: Acute (3) Laryngeal cancer Status: Acute (4) Aphonia Status: Acute - Assessment and Plan (Free Text) Plan: pt to have endoscopy with biopsy from Dr. Lowery. Oncology consult for palliative treatment, Will need PEG tube as well. - Date & Time Date: 05/18/18 Time: 12:13
[2018-05-18] MEDS ORDERED: Midazolam 2 MG/2 ML VIAL ONE (16:18)
[2018-05-18] MEDS ORDERED: Sodium Chloride 0.9% 1,000 ML IV SCH (16:30)
--- NOTE | 2018-05-18 18:41 | CP.PCM.CON ---
History of Present Illness - History of Present Illness History of Present Illness: General Surgery - Dr. Rivas 73yo M w/ hx of laryngeal CA s/p laryngectomy and xrt several years ago. Pt presented to ED with new onset of dysphagia for approximately [address] of the neck/chest which showed a large soft tissue mass extending from just above the tracheostomy into the posterior margin of the oral pharynx consistent with recurrent neoplasm. Pt has been seen by ENT and GI. Dr. Jones currently planning for EGD with biopsy and possible PEG tube. Surgery was consulted for G-tube should the PEG not be feasible. Pt was seen and examined at bedside. He is able to mouth words and nod appropriately to questioning. He denies any present complaints and understands the plan for a feeding tube in the next several days with either GI or Surgery. He denies any prior abdominal surgery other than a previous PEG tube. PMH: Laryngeal Ca, COPD, Seizure disorder, Arthritis PSH: Tracheostomy, Laryngectomy, PEG tube FHx: Mother had colon CA, Brother had liver cancer, Meds as per chart NKDA Review of Systems - Review of Systems All systems: reviewed and no additional remarkable complaints except (as per HPI ) Past Patient History - Past Medical History & Family History Past Medical History?: Yes - Past Social History Smoking Status: Former Smoker - CARDIAC Hx Cardiac Disorders: No - PULMONARY Hx Respiratory Disorders: Yes Hx Asthma: Yes Hx Bronchitis: Yes Hx Chronic Obstructive Pulmonary Disease (COPD): Yes Hx Emphysema: Yes Hx Sleep Apnea: Yes Other/Comment: Permanent tracheostomy 2013, pt. uses [employer] digital (digital voicebox) to speak due to tracheostomy - NEUROLOGICAL Hx Neurological Disorder: Yes Hx Seizures: Yes (Well controlled with medication) - HEENT Hx HEENT Problems: Yes Other/Comment: blurry vision mild - RENAL Hx Chronic Kidney Disease: No - ENDOCRINE/METABOLIC Hx Diabetes Mellitus Type 2: Yes (DIET CONTROLLED) - HEMATOLOGICAL/ONCOLOGICAL Hx Cancer: Yes (Throat cancer) - INTEGUMENTARY Hx Dermatological Problems: No Other/Comment: Dry skin scattered throughout body - MUSCULOSKELETAL/RHEUMATOLOGICAL Hx Falls: Yes - GASTROINTESTINAL Hx Gastrointestinal Disorders: No - GENITOURINARY/GYNECOLOGICAL Hx Genitourinary Disorders: No - PSYCHIATRIC Hx Psychophysiologic Disorder: No - SURGICAL HISTORY Other/Comment: Permanent tracheostomy, Neck surgery to remove Ca - ANESTHESIA Hx Anesthesia: Yes Hx Anesthesia Reactions: No Hx Malignant Hyperthermia: No Meds Allergies/Adverse Reactions: Allergies Allergy/AdvReac Type Severity Reaction Status Date / Time No Known Allergies Allergy Unverified 02/11/15 14:52 - Medications Medications: Current Medications Albuterol/Ipratropium (Duoneb 3 Mg/0.5 Mg (3 Ml) Ud) 3 ml IH TIDRESP [facility] Last Admin: 05/18/18 13:15 Dose: 3 ml Heparin Sodium (Porcine) (Heparin) 5,000 units SC Q8 [facility] PRN Reason: Protocol Last Admin: 05/18/18 13:37 Dose: Not Given Potassium Chloride 40 meq/ (Dextrose/Sodium Chloride) 1,020 mls @ 75 mls/hr IV .[id number] [facility] Last Admin: 05/18/18 09:37 Dose: 75 mls/hr Levetiracetam 100 mg/ Sodium (Chloride) 101 mls @ 460 mls/hr IV Q12 [facility] Last Admin: 05/18/18 09:36 Dose: 460 mls/hr Lorazepam (Ativan) 1 mg IV Q4 PRN; Protocol PRN Reason: Seizure activity Pantoprazole Sodium (Protonix Inj) 40 mg IVP DAILY [facility] Last Admin: 05/18/18 09:38 Dose: 40 mg Phenytoin (Dilantin) 100 mg IVP Q8 [facility] Last Admin: 05/18/18 14:06 Dose: 100 mg Physical Exam - Constitutional Appears: No Acute Distress, Cachectic - Head Exam Head Exam: ATRAUMATIC, NORMAL INSPECTION, NORMOCEPHALIC - Eye Exam Eye Exam: Normal appearance - Neck Exam Additional comments: Tracheostomy - Respiratory Exam Respiratory Exam: NORMAL BREATHING PATTERN. absent: Respiratory Distress - Cardiovascular Exam Cardiovascular Exam: REGULAR RHYTHM - GI/Abdominal Exam GI & Abdominal Exam: Soft. absent: Distended, Guarding, Rebound, Rigid, Tenderness - Neurological Exam Neurological exam: Alert, Oriented x3 - Psychiatric Exam Psychiatric exam: Normal Affect, Normal Mood - Skin Skin Exam: Dry, Intact Results - Vital Signs Recent Vital Signs: Last Vital Signs Temp 98.1 F 05/18/18 12:00 Pulse 96 H 05/18/18 14:00 Resp 19 05/18/18 12:00 BP 124/79 05/18/18 12:00 Pulse Ox 97 05/18/18 05:45 - Labs Result Diagrams: 05/18/18 06:45 05/18/18 06:45 Labs: Laboratory Results - last 24 hr 05/18/18 05/18/18 05/18/18 00:41 06:23 06:45 WBC 9.0 D RBC 3.55 Hgb 10.4 L Hct 32.1 L MCV 90.4 MCH 29.3 MCHC 32.4 RDW 13.1 Plt Count 433 MPV 10.1 Gran % 79.8 H Lymph % (Auto) 12.3 L [place] % (Auto) 7.0 H Eos % (Auto) 0.7 L Baso % (Auto) 0.2 Gran # 7.17 H Lymph # (Auto) 1.1 L [place] # (Auto) 0.6 Eos # (Auto) 0.1 Baso # (Auto) 0.02 PT INR Sodium Potassium Chloride Carbon Dioxide Anion Gap BUN Creatinine Est GFR ( Amer) Est GFR (Non-Af Amer) POC Glucose (mg/dL) 130 H 122 H Random Glucose Calcium Phosphorus Magnesium Total Bilirubin AST ALT Alkaline Phosphatase Total Protein Albumin Globulin Albumin/Globulin Ratio Blood Type Confirm 05/18/18 05/18/18 05/18/18 06:45 06:45 07:35 WBC RBC Hgb Hct MCV MCH MCHC RDW Plt Count MPV Gran % Lymph % (Auto) [place] % (Auto) Eos % (Auto) Baso % (Auto) Gran # Lymph # (Auto) [place] # (Auto) Eos # (Auto) Baso # (Auto) PT 15.6 H INR 1.35 Sodium 144 Potassium 4.1 Chloride 109 H Carbon Dioxide 27 Anion Gap 11 BUN 14 Creatinine 0.7 L Est GFR ( Amer) > 60 Est GFR (Non-Af Amer) > 60 POC Glucose (mg/dL) Random Glucose 142 H Calcium 9.6 Phosphorus 3.3 Magnesium 2.2 Total Bilirubin 0.5 AST 28 ALT 24 Alkaline Phosphatase 93 Total Protein 7.5 Albumin 3.8 Globulin 3.7 Albumin/Globulin Ratio 1.0 L Blood Type Confirm A POSITIVE 05/18/18 12:11 WBC RBC Hgb Hct MCV MCH MCHC RDW Plt Count MPV Gran % Lymph % (Auto) [place] % (Auto) Eos % (Auto) Baso % (Auto) Gran # Lymph # (Auto) [place] # (Auto) Eos # (Auto) Baso # (Auto) PT INR Sodium Potassium Chloride Carbon Dioxide Anion Gap BUN Creatinine Est GFR ( Amer) Est GFR (Non-Af Amer) POC Glucose (mg/dL) 137 H Random Glucose Calcium Phosphorus Magnesium Total Bilirubin AST ALT Alkaline Phosphatase Total Protein Albumin Globulin Albumin/Globulin Ratio Blood Type Confirm Assessment & Plan - Assessment and Plan (Free Text) Assessment: 73 yo M w/ Dysphagia 2/2 recurrent laryngeal Ca -Will F/U GI plans for possible PEG -Surgery will be on board should the pt. require an open gastrostomy tube -Recommend starting PPN in the meantime while awaiting establishment of enteral route for feeding -Plan was discussed with medical team DW Dr Rob Hernadez PGY4
[2018-05-19] MEDS: Potassium Chloride 40 MEQ in Dextrose 5%/0.9% NS 1,000 ML IV SCH (00:28)
[2018-05-19] MEDS: Phenytoin 100 mg/2 ml Inj IVP SCH (06:29)
[2018-05-19 06:53] LABS: BASO # 0.02 K/mm3 (0.0-2.0); BASO % 0.2 % (0.0-3.0); EOS # 0.1 (0.0-0.7); EOS % 0.5 % (1.5-5.0); GRAN # 7.21 (1.4-6.5); GRAN % 75.5 % (50.0-68.0); LYMPH # 1.6 (1.2-3.4); MEAN CELL VOLUME 90.9 fl (80.0-105.0); MEAN CORPUSCULAR HEMOGLOBIN 29.4 pg (25.0-35.0); MEAN CORPUSCULAR HGB CONC 32.4 g/dl (31.0-37.0); MEAN PLATELET VOLUME 9.1 fl (7.0-11.0); MONO # 0.7 (0.1-0.6); MONO % 6.8 % (1.0-6.0); RBC 3.4 10^6/uL (3.5-6.1); RED CELL DISTRIBUTION WIDTH 13.5 % (11.5-14.5); WHITE BLOOD COUNT 9.6 10^3/ul (4.5-11.0)
[2018-05-19] MEDS: Albuterol-Ipratrop 3 mg / 0.5 (3 ml) UD IH SCH ×3 (07:21→20:50)
[2018-05-19 07:30] LABS: ALBUMIN 3.5 g/dL (3.0-4.8); ALT/SGPT 25 U/L (7-56); AST/SGOT 37 U/L (17-59); BLOOD UREA NITROGEN 8 mg/dL (7-21); CALCIUM 9.7 mg/dL (8.4-10.5); GFR NON-AFRICAN AMERICAN > 60
--- NOTE | 2018-05-19 07:58 | CP.PCM.PN ---
Subjective - Date & Time of Evaluation Date of Evaluation: 05/19/18 Time of Evaluation: 07:55 - Subjective Subjective: General Surgery - Dr. Rivas Pt S&E. DC. Pt denies any complaints. He is aware of plan for a feeding tube placement in the following days, either with surgery or GI team. No Fevers /Chills, SOb/Chest pain. Objective - Vital Signs/Intake and Output Vital Signs (last 24 hours): Temp Pulse Resp BP Pulse Ox 98.6 F 81 20 134/89 97 05/19/18 06:00 05/19/18 06:00 05/19/18 06:00 05/19/18 06:00 05/19/18 06:00 Intake and Output: 05/19/18 05/19/18 06:59 18:59 Intake Total 0 Output Total 200 Balance -200 - Medications Medications: Current Medications Albuterol/Ipratropium (Duoneb 3 Mg/0.5 Mg (3 Ml) Ud) 3 ml IH TIDRESP [facility] Last Admin: 05/19/18 07:21 Dose: 3 ml Heparin Sodium (Porcine) (Heparin) 5,000 units SC Q8 [facility] PRN Reason: Protocol Last Admin: 05/19/18 06:29 Dose: 5,000 units Potassium Chloride 40 meq/ (Dextrose/Sodium Chloride) 1,020 mls @ 75 mls/hr IV .[id number] [facility] Last Admin: 05/19/18 00:28 Dose: 75 mls/hr Levetiracetam 100 mg/ Sodium (Chloride) 101 mls @ 460 mls/hr IV Q12 [facility] Last Admin: 05/18/18 22:24 Dose: 460 mls/hr Lorazepam (Ativan) 1 mg IV Q4 PRN; Protocol PRN Reason: Seizure activity Pantoprazole Sodium (Protonix Inj) 40 mg IVP DAILY [facility] Last Admin: 05/18/18 09:38 Dose: 40 mg Phenytoin (Dilantin) 100 mg IVP Q8 [facility] Last Admin: 05/19/18 06:29 Dose: 100 mg - Labs Labs: 05/19/18 06:30 05/19/18 06:30 PT 15.6 SECONDS (9.4-12.5) H 05/18/18 06:45 INR 1.35 05/18/18 06:45 - Constitutional Appears: No Acute Distress - Head Exam Head Exam: ATRAUMATIC, NORMAL INSPECTION, NORMOCEPHALIC - Eye Exam Eye Exam: Normal appearance - Respiratory Exam Respiratory Exam: NORMAL BREATHING PATTERN. absent: Respiratory Distress - Cardiovascular Exam Cardiovascular Exam: REGULAR RHYTHM - GI/Abdominal Exam GI & Abdominal Exam: Soft. absent: Distended, Guarding, Rigid, Tenderness, Rebound - Neurological Exam Neurological Exam: Alert, Oriented x3 - Psychiatric Exam Psychiatric exam: Normal Affect, Normal Mood - Skin Skin Exam: Dry, Intact Assessment and Plan - Assessment and Plan (Free Text) Assessment: 73M w/ Dysphagia 2/2 recurrent laryngeal Ca -F/U GI for possible PEG -Recommend starting PPN while awaiting establishment of enteral route for feeding -Surgery on board should the pt. require an open gastrostomy tube -Plan was discussed with medical team DW Dr Rob Hernadez PGY4
[2018-05-19] MEDS ORDERED: Phenytoin 100 mg/2 ml Inj IVPB SCH (09:03)
[2018-05-19] MEDS: levETIRAcetam 100 MG in Sodium Chloride 0.9% 100 ML IV SCH ×2 (10:51→21:49)
--- NOTE | 2018-05-19 11:45 | CP.PCM.PN ---
<Myron Amezquita - Last Filed: 05/19/18 11:41> Subjective - Date & Time of Evaluation Date of Evaluation: 05/19/18 Time of Evaluation: 08:15 - Subjective Subjective: PGY6 GI Fellow Progress Note Patient seen and examined bedside this morning. The patient continues to have difficulty tolerating saliva and has been maintained NPO. Could not proceed with EGD yesterday given concerns over airway from anesthesia standpoint. 12 system ROS performed and negative except where stated Objective - Vital Signs/Intake and Output Vital Signs (last 24 hours): Temp Pulse Resp BP Pulse Ox 98.6 F 81 20 134/89 97 05/19/18 06:00 05/19/18 06:00 05/19/18 06:00 05/19/18 06:00 05/19/18 06:00 Intake and Output: 05/19/18 05/19/18 06:59 18:59 Intake Total 0 Output Total 200 Balance -200 - Medications Medications: Current Medications Albuterol/Ipratropium (Duoneb 3 Mg/0.5 Mg (3 Ml) Ud) 3 ml IH TIDRESP [facility] Last Admin: 05/19/18 07:21 Dose: 3 ml Heparin Sodium (Porcine) (Heparin) 5,000 units SC Q8 [facility] PRN Reason: Protocol Last Admin: 05/19/18 06:29 Dose: 5,000 units Potassium Chloride 40 meq/ (Dextrose/Sodium Chloride) 1,020 mls @ 75 mls/hr IV .[id number] [facility] Last Admin: 05/19/18 00:28 Dose: 75 mls/hr Levetiracetam 100 mg/ Sodium (Chloride) 101 mls @ 460 mls/hr IV Q12 [facility] Last Admin: 05/19/18 10:51 Dose: 460 mls/hr Phenytoin 100 mg/ Sodium (Chloride) 52 mls @ 104 mls/hr IVPB Q8 [facility] Lorazepam (Ativan) 1 mg IV Q4 PRN; Protocol PRN Reason: Seizure activity Pantoprazole Sodium (Protonix Inj) 40 mg IVP DAILY [facility] Last Admin: 05/19/18 10:51 Dose: 40 mg - Labs Labs: 05/19/18 06:30 05/19/18 06:30 PT 15.6 SECONDS (9.4-12.5) H 05/18/18 06:45 INR 1.35 05/18/18 06:45 - Constitutional Appears: No Acute Distress, Chronically Ill - Eye Exam Eye Exam: EOMI, PERRL - ENT Exam ENT Exam: Mucous Membranes Moist - Neck Exam Additional comments: tracheostomy - Respiratory Exam Respiratory Exam: Clear to Ausculation Bilateral. absent: Rales, Rhonchi, Wheezes - Cardiovascular Exam Cardiovascular Exam: RRR, +S1, +S2 - GI/Abdominal Exam GI & Abdominal Exam: Soft, Normal Bowel Sounds. absent: Distended, Firm, Guarding, Rigid, Tenderness, Organomegaly - Extremities Exam Extremities Exam: Normal Inspection. absent: Pedal Edema - Neurological Exam Neurological Exam: Alert, Awake, Oriented x3 - Psychiatric Exam Psychiatric exam: Normal Affect, Normal Mood - Skin Skin Exam: Dry, Warm Assessment and Plan - Assessment and Plan (Free Text) Assessment: Patient is a 73yo male with PMHx significant for laryngeal cancer s/p tracheostomy who presents with 3 days of dysphagia -Acute dysphagia -Abnormal CT scan of neck showing laryngeal mass lesion -Seizure disorder -COPD Plan: -Patient to be re-evaluated by ENT regarding tracheostomy site -Recommend consideration for flexible laryngoscopy by ENT as the lesion in question appears to be in the cervical area -Surgery following for possible surgical gastrostomy -Plan per ENT re-eval <Juaquin Jones V - Last Filed: 05/23/18 22:50> Objective - Vital Signs/Intake and Output Vital Signs (last 24 hours): Temp Pulse Resp BP Pulse Ox 98 F 106 H 20 131/80 98 05/23/18 18:00 05/23/18 18:00 05/23/18 18:00 05/23/18 18:00 05/23/18 14:35 Intake and Output: 05/23/18 05/24/18 18:59 06:59 Intake Total 670 956 Balance 670 956 - Medications Medications: Current Medications Acetaminophen (Tylenol 650 Mg Supp) 650 mg RC Q4 PRN PRN Reason: mild pain (1-3);Fever >100.4 F Albuterol/Ipratropium (Duoneb 3 Mg/0.5 Mg (3 Ml) Ud) 3 ml IH TIDRESP [facility] Last Admin: 05/23/18 19:52 Dose: 3 ml Fentanyl (Fentanyl) 25 mcg IV Q10M PRN PRN Reason: Pain, moderate (4-7) Heparin Sodium (Porcine) (Heparin) 5,000 units SC Q8 [facility] PRN Reason: Protocol Last Admin: 05/22/18 21:17 Dose: 5,000 units Phenytoin 100 mg/ Sodium (Chloride) 52 mls @ 104 mls/hr IVPB Q8 [facility] Last Admin: 05/23/18 22:09 Dose: 104 mls/hr Amino Acids (Clinimix 4.25/5 % (1000 Ml)) 1,000 mls @ 42 mls/hr IV .[id number] [facility] Last Admin: 05/23/18 18:00 Dose: 42 mls/hr Levetiracetam (Keppra 500mg Ivpb) 500 mg in 100 mls @ 400 mls/hr IVPB Q12 [facility] Last Admin: 05/23/18 22:09 Dose: 400 mls/hr Sodium Chloride (Sodium Chloride 0.9%) 1,000 mls @ 100 mls/hr IV .Q10H [facility] Last Admin: 05/23/18 16:00 Dose: 100 mls/hr Lorazepam (Ativan) 1 mg IV Q4 PRN; Protocol PRN Reason: Seizure activity Last Admin: 05/23/18 01:28 Dose: 1 mg Morphine Sulfate (Morphine) 2 mg IVP Q4H PRN PRN Reason: Pain, moderate (4-7) Morphine Sulfate (Morphine) 4 mg IVP Q4H PRN PRN Reason: Pain, severe (8-10) Last Admin: 05/23/18 16:32 Dose: 4 mg Pantoprazole Sodium (Protonix Inj) 40 mg IVP DAILY [facility] Last Admin: 05/23/18 09:29 Dose: 40 mg - Labs Labs: 05/23/18 07:10 05/23/18 07:10 PT 15.6 SECONDS (9.4-12.5) H 05/18/18 06:45 INR 1.35 05/18/18 06:45 Attending/Attestation - Attestation Notes (Text): This is an addendum to GI progress report dictated by the GI Fellow.The patient was seen and examined earlier. Medical records, lab studies, imagings were reviewed. Last 24 hours events reviewed. Agreed with the above treatment plan as outlined in GI Fellow 's notes with the addition of the following Discussed with anesthesiologist anesthesia request cuff tracheostomy tube 05/23/18 22:47
[2018-05-19] MEDS ORDERED: Potassium Chloride 20 MEQ in Dextrose 5%/0.9% NS 1,000 ML IV SCH (11:58)
--- NOTE | 2018-05-19 14:45 | CP.PCM.PN ---
Subjective - Date & Time of Evaluation Date of Evaluation: 05/19/18 Time of Evaluation: 14:37 - Subjective Subjective: Patient seen and examined. Pt doing well resting comfortably. Pt to begin PPN. Discussed case with GI and General surgery. GI to possibly perform EGD with biopsy and possible PEG tube. If they do not feel comfortable then Gen surgery to perform open Gtube and ENT to perform esophagoscopy with bx at a later time. Objective - Vital Signs/Intake and Output Vital Signs (last 24 hours): Temp Pulse Resp BP Pulse Ox 98.8 F 76 19 137/80 97 05/19/18 11:59 05/19/18 11:59 05/19/18 11:59 05/19/18 11:59 05/19/18 06:00 Intake and Output: 05/19/18 05/19/18 06:59 18:59 Intake Total 0 Output Total 200 Balance -200 - Medications Medications: Current Medications Albuterol/Ipratropium (Duoneb 3 Mg/0.5 Mg (3 Ml) Ud) 3 ml IH TIDRESP [facility] Last Admin: 05/19/18 13:28 Dose: 3 ml Heparin Sodium (Porcine) (Heparin) 5,000 units SC Q8 [facility] PRN Reason: Protocol Last Admin: 05/19/18 06:29 Dose: 5,000 units Levetiracetam 100 mg/ Sodium (Chloride) 101 mls @ 460 mls/hr IV Q12 [facility] Last Admin: 05/19/18 10:51 Dose: 460 mls/hr Phenytoin 100 mg/ Sodium (Chloride) 52 mls @ 104 mls/hr IVPB Q8 [facility] Lorazepam (Ativan) 1 mg IV Q4 PRN; Protocol PRN Reason: Seizure activity Pantoprazole Sodium (Protonix Inj) 40 mg IVP DAILY [facility] Last Admin: 05/19/18 10:51 Dose: 40 mg - Labs Labs: 05/19/18 06:30 05/19/18 06:30 PT 15.6 SECONDS (9.4-12.5) H 05/18/18 06:45 INR 1.35 05/18/18 06:45 - Head Exam Head Exam: ATRAUMATIC, NORMAL INSPECTION - Eye Exam Eye Exam: EOMI, Normal appearance Pupil Exam: NORMAL ACCOMODATION - ENT Exam ENT Exam: Mucous Membranes Moist - Neck Exam Neck Exam: Tenderness Additional comments: Stoma patent without mass - Respiratory Exam Respiratory Exam: NORMAL BREATHING PATTERN - Neurological Exam Neurological Exam: Alert, Awake, Oriented x3 - Psychiatric Exam Psychiatric exam: Normal Affect, Normal Mood Assessment and Plan (1) Dysphagia Status: Acute (2) Oropharyngeal mass Status: Acute (3) Laryngeal cancer Status: Acute (4) Aphonia Status: Acute - Assessment and Plan (Free Text) Plan: Discussed case with GI and General surgery. GI to possibly perform EGD with biopsy and possible PEG tube. If they do not feel comfortable then Gen surgery to perform open Gtube and ENT to perform esophagoscopy with bx at a later time. Discussed case with oncology as well. Tracheotomy tube #8 shiley cuffed placed today.
[2018-05-19] MEDS: Dextrose 5%/0.45% NS 1,000 ML IV SCH (17:21)
--- NOTE | 2018-05-19 17:39 | CP.PCM.PN ---
<Candelario Coppola - Last Filed: 05/19/18 17:39> Subjective - Date & Time of Evaluation Date of Evaluation: 05/19/18 Time of Evaluation: 17:36 - Subjective Subjective: Spencer Abdon PGY2 - IM Progress Note for Hospitalist Service Patient seen and examined this AM at bedside. No acute events reported overnight. Patient resting comfortably in bed. Patient complains of difficulty swallowing, even his own saliva at times. Denies chest pain, shortness of breath , abdominal pain, nausea, vomiting. Objective - Vital Signs/Intake and Output Vital Signs (last 24 hours): Temp Pulse Resp BP Pulse Ox 100.6 F H 76 19 137/80 97 05/19/18 17:21 05/19/18 11:59 05/19/18 11:59 05/19/18 11:59 05/19/18 06:00 Intake and Output: 05/19/18 05/19/18 06:59 18:59 Intake Total 0 Output Total 200 Balance -200 - Medications Medications: Current Medications Acetaminophen (Tylenol 650 Mg Supp) 650 mg RC Q6H PRN PRN Reason: Fever >100.4 F Last Admin: 05/19/18 17:21 Dose: 650 mg Albuterol/Ipratropium (Duoneb 3 Mg/0.5 Mg (3 Ml) Ud) 3 ml IH TIDRESP [facility] Last Admin: 05/19/18 13:28 Dose: 3 ml Heparin Sodium (Porcine) (Heparin) 5,000 units SC Q8 [facility] PRN Reason: Protocol Last Admin: 05/19/18 14:53 Dose: 5,000 units Levetiracetam 100 mg/ Sodium (Chloride) 101 mls @ 460 mls/hr IV Q12 [facility] Last Admin: 05/19/18 10:51 Dose: 460 mls/hr Phenytoin 100 mg/ Sodium (Chloride) 52 mls @ 104 mls/hr IVPB Q8 [facility] Last Admin: 05/19/18 14:50 Dose: 104 mls/hr Fat Emulsion Intravenous (Intralipid 20%) 250 mls @ 21 mls/hr IV MWF@1800 [facility] Stop: 05/22/18 17:59 Dextrose/Sodium Chloride (Dextrose 5%/0.45% Ns 1000 Ml) 1,000 mls @ 75 mls/hr IV .[id number] [facility] Last Admin: 05/19/18 17:21 Dose: 75 mls/hr Multivitamins/Vitamin C 10 ml/ (Amino Acids) 2,010 mls @ 83 mls/hr IV .Q24H [facility] Stop: 05/22/18 17:59 Lorazepam (Ativan) 1 mg IV Q4 PRN; Protocol PRN Reason: Seizure activity Pantoprazole Sodium (Protonix Inj) 40 mg IVP DAILY [facility] Last Admin: 05/19/18 10:51 Dose: 40 mg - Labs Labs: 05/19/18 06:30 05/19/18 06:30 PT 15.6 SECONDS (9.4-12.5) H 05/18/18 06:45 INR 1.35 05/18/18 06:45 - Constitutional Appears: Older Than Stated Age - Head Exam Head Exam: ATRAUMATIC, NORMAL INSPECTION, NORMOCEPHALIC - Eye Exam Eye Exam: EOMI, PERRL - ENT Exam ENT Exam: Mucous Membranes Moist - Neck Exam Additional comments: tracheostomy with bandaging in place c/d/i - Respiratory Exam Respiratory Exam: Clear to Ausculation Bilateral, NORMAL BREATHING PATTERN - Cardiovascular Exam Cardiovascular Exam: REGULAR RHYTHM, +S1, +S2 - GI/Abdominal Exam GI & Abdominal Exam: Soft, Normal Bowel Sounds. absent: Tenderness - Extremities Exam Extremities Exam: absent: Calf Tenderness, Pedal Edema - Neurological Exam Neurological Exam: Alert, Awake, Oriented x3 Additional comments: Motor and sensory grossly intact - Psychiatric Exam Psychiatric exam: Normal Affect, Normal Mood - Skin Skin Exam: Dry, Intact Assessment and Plan - Assessment and Plan (Free Text) Assessment: 73 M with PMHx seizure and throat cancer (Dx 2013) s/p tracheostomy who presented with a 3 day history of dysphagia and dysphonia. Patient had Head/ Neck CT showing oropharyngeal mass concerning for malignancy. GI, ENT, General surgery are consulted and following patient. Plan: Dysphagia 2/2 oropharyngeal mass - Imaging showing (+) large soft tissue mass density R glottic area s/p total laryngectomy, suspicious of mets - NPO; D5 with 1/2 NS @75cc/hr - PPN started for nutritional needs - Continue O2 PRN - GI following with recs for flex laryngoscopy by ENT as lesion is in cervical area and patient to be re-evaluated by ENT regarding tacheostomy site - ENT following with comment for GI to possibly perform EGD with bx and possible PEG tube placement and if not obtainable from GI possible General Surgery to perform open Gtube and ENT to perform esophagoscopy with bx at later time - General Surgery consulted and following with recs for starting PPN as well as available for open gastrostomy tube as necessary - Continue with NPO and aspiration precautions and suction prn Hx seizure - Continue IV keppra and dilantin - Continue ativan q4 prn for breakthrough seizure Hx COPD - Continue Duonebs - Continue monitor Dispo: Patient to have palliative care consult, will continue to develop patient goals of care as further investigation of oropharyngeal mass proceeds. Pt needing aid in drafting paperwork for healthcare proxy, SW consulted following GI/ DVT ppx - Protonix - Heparin SC Patient seen, examined and case discussed with attending, Dr. Rickey Coppola PGY2 <Dejah Lang - Last Filed: 05/27/18 16:46> Objective - Vital Signs/Intake and Output Vital Signs (last 24 hours): Temp Pulse Resp BP Pulse Ox 99.5 F 94 H 20 118/75 92 L 05/27/18 12:00 05/27/18 12:00 05/27/18 12:00 05/27/18 12:00 05/27/18 06:00 Intake and Output: 05/27/18 05/27/18 06:59 18:59 Intake Total 1200 Output Total 200 Balance 1200 -200 - Medications Medications: Current Medications Acetaminophen (Tylenol 650 Mg Supp) 650 mg RC Q4 PRN PRN Reason: mild pain (1-3);Fever >100.4 F Last Admin: 05/26/18 11:26 Dose: 650 mg Albuterol/Ipratropium (Duoneb 3 Mg/0.5 Mg (3 Ml) Ud) 3 ml IH TIDRESP [facility] Last Admin: 05/27/18 13:29 Dose: 3 ml Heparin Sodium (Porcine) (Heparin) 5,000 units SC Q8 [facility] PRN Reason: Protocol Last Admin: 05/27/18 14:53 Dose: 5,000 units Phenytoin 100 mg/ Sodium (Chloride) 52 mls @ 104 mls/hr IVPB Q8 [facility] Last Admin: 05/27/18 14:53 Dose: 104 mls/hr Levetiracetam (Keppra 500mg Ivpb) 500 mg in 100 mls @ 400 mls/hr IVPB Q12 [facility] Last Admin: 05/27/18 09:19 Dose: 400 mls/hr Sodium Chloride (Sodium Chloride 0.9%) 1,000 mls @ 100 mls/hr IV .Q10H [facility] Last Admin: 05/27/18 09:20 Dose: 100 mls/hr Ampicillin Sodium/Sulbactam (Sodium 3 gm/ Sodium Chloride) 100 mls @ 200 mls/ hr IVPB Q6 [facility] PRN Reason: Protocol Last Admin: 05/27/18 12:33 Dose: 200 mls/hr Potassium Chloride (Potassium Chloride 20 Meq/100 Ml) 20 meq in 100 mls @ 50 mls/hr IVPB ONCE ONE Stop: 05/27/18 18:44 Lorazepam (Ativan) 1 mg IV Q4 PRN; Protocol PRN Reason: Seizure activity Last Admin: 05/23/18 01:28 Dose: 1 mg Metoclopramide HCl (Reglan) 5 mg IVP ACHS [facility] Pantoprazole Sodium (Protonix Inj) 40 mg IVP DAILY [facility] Last Admin: 05/27/18 09:19 Dose: 40 mg - Labs Labs: 05/27/18 15:59 05/27/18 15:59 PT 15.6 SECONDS (9.4-12.5) H 05/18/18 06:45 INR 1.35 05/18/18 06:45 Attending/Attestation - Attestation I have personally seen and examined this patient.: Yes I have fully participated in the care of the patient.: Yes I have reviewed all pertinent clinical information, including history, physical exam and plan: Yes Notes (Text): 05/27/18 16:46 Medical record note made by the resident after discussion with my direction and input after the patient was personally seen and examined by me. I have reviewed the chart and agree that the record accurately reflects by personal performance of the history, physical exam, data review, and medical decision-making, in the course for the patient. I have also personally directed the plan of care.
[2018-05-19] MEDS ORDERED: Multivitamin (MVI) 10 ML in Amino/Dext 4.25/5 2,000 ML IV SCH (18:00)
--- NOTE | 2018-05-19 19:23 | CP.PCM.CON ---
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 ROS - no dizziness or weakness. states patient hasnt eaten in 3 days. no fever/chills. no other complaints. PMHx Largyneal cancer, s/p trach COPD Seizure Arthritis in knees ? Diabetes PSH Tracheostomy 2014 FH Mother colon ca. Brother 3 years ago for liver ca SH Previous heavy smoker. Denies current etoh use. All NKDA Med Levocetirizine Monteluksat, toptropium Phenytoin, Keppra Omperazole PMD - Dr Alvarado GI - Dr Jones Onc - "A doctor" in [place] ENT - Dr Allen Health care proxy: Pt has a , but pt's sister helps make decision. However, there is no signed paper to document health proxy. Review of Systems - Constitutional Constitutional: As Per HPI - EENT Eyes: As Per HPI Nose/Mouth/Throat: As Per HPI - Cardiovascular Cardiovascular: As Per HPI - Respiratory Respiratory: As Per HPI - Gastrointestinal Gastrointestinal: As Per HPI - Genitourinary Genitourinary: As Per HPI Past Patient History - Past Medical History & Family History Past Medical History?: Yes - Past Social History Smoking Status: Former Smoker - CARDIAC Hx Cardiac Disorders: No - PULMONARY Hx Respiratory Disorders: Yes Hx Asthma: Yes Hx Bronchitis: Yes Hx Chronic Obstructive Pulmonary Disease (COPD): Yes Hx Emphysema: Yes Hx Sleep Apnea: Yes Other/Comment: Permanent tracheostomy 2014, pt. uses [employer] (digital voicebox) to speak due to tracheostomy - NEUROLOGICAL Hx Neurological Disorder: Yes Hx Seizures: Yes (Well controlled with medication) - HEENT Hx HEENT Problems: Yes Other/Comment: blurry vision mild - RENAL Hx Chronic Kidney Disease: No - ENDOCRINE/METABOLIC Hx Diabetes Mellitus Type 2: Yes (DIET CONTROLLED) - HEMATOLOGICAL/ONCOLOGICAL Hx Cancer: Yes (Throat cancer) - INTEGUMENTARY Hx Dermatological Problems: No Other/Comment: Dry skin scattered throughout body - MUSCULOSKELETAL/RHEUMATOLOGICAL Hx Falls: Yes - GASTROINTESTINAL Hx Gastrointestinal Disorders: No - GENITOURINARY/GYNECOLOGICAL Hx Genitourinary Disorders: No - PSYCHIATRIC Hx Psychophysiologic Disorder: No - SURGICAL HISTORY Other/Comment: Permanent tracheostomy, Neck surgery to remove Ca - ANESTHESIA Hx Anesthesia: Yes Hx Anesthesia Reactions: No Hx Malignant Hyperthermia: No Meds Allergies/Adverse Reactions: Allergies Allergy/AdvReac Type Severity Reaction Status Date / Time No Known Allergies Allergy Unverified 02/11/15 14:52 - Medications Medications: Current Medications Acetaminophen (Tylenol 650 Mg Supp) 650 mg RC Q6H PRN PRN Reason: Fever >100.4 F Last Admin: 05/19/18 17:21 Dose: 650 mg Albuterol/Ipratropium (Duoneb 3 Mg/0.5 Mg (3 Ml) Ud) 3 ml IH TIDRESP [facility] Last Admin: 05/19/18 13:28 Dose: 3 ml Heparin Sodium (Porcine) (Heparin) 5,000 units SC Q8 [facility] PRN Reason: Protocol Last Admin: 05/19/18 14:53 Dose: 5,000 units Levetiracetam 100 mg/ Sodium (Chloride) 101 mls @ 460 mls/hr IV Q12 [facility] Last Admin: 05/19/18 10:51 Dose: 460 mls/hr Phenytoin 100 mg/ Sodium (Chloride) 52 mls @ 104 mls/hr IVPB Q8 [facility] Last Admin: 05/19/18 14:50 Dose: 104 mls/hr Fat Emulsion Intravenous (Intralipid 20%) 250 mls @ 21 mls/hr IV MWF@1800 [facility] Stop: 05/22/18 17:59 Dextrose/Sodium Chloride (Dextrose 5%/0.45% Ns 1000 Ml) 1,000 mls @ 75 mls/hr IV .[id number] [facility] Last Admin: 05/19/18 17:21 Dose: 75 mls/hr Multivitamins/Vitamin C 10 ml/ (Amino Acids) 2,010 mls @ 83 mls/hr IV .Q24H [facility] Stop: 05/22/18 17:59 Lorazepam (Ativan) 1 mg IV Q4 PRN; Protocol PRN Reason: Seizure activity Pantoprazole Sodium (Protonix Inj) 40 mg IVP DAILY [facility] Last Admin: 05/19/18 10:51 Dose: 40 mg Physical Exam - Constitutional Appears: Non-toxic - Eye Exam Eye Exam: Normal appearance - ENT Exam ENT Exam: Mucous Membranes Moist - Respiratory Exam Respiratory Exam: Clear to Auscultation Bilateral, NORMAL BREATHING PATTERN - Cardiovascular Exam Cardiovascular Exam: REGULAR RHYTHM - GI/Abdominal Exam GI & Abdominal Exam: Normal Bowel Sounds, Soft. absent: Tenderness - Extremities Exam Extremities exam: Positive for: normal inspection Results - Vital Signs Recent Vital Signs: Last Vital Signs Temp 100.6 F H 05/19/18 18:00 Pulse 92 H 05/19/18 18:00 Resp 18 05/19/18 18:00 BP 141/80 05/19/18 18:00 Pulse Ox 97 05/19/18 06:00 - Labs Result Diagrams: 05/19/18 06:30 05/19/18 06:30 Labs: Laboratory Results - last 24 hr 05/18/18 05/18/18 05/19/18 07:35 19:49 06:30 WBC 9.6 RBC 3.40 L Hgb 10.0 L Hct 30.9 L MCV 90.9 MCH 29.4 MCHC 32.4 RDW 13.5 Plt Count 406 MPV 9.1 Gran % 75.5 H Lymph % (Auto) 17.0 L [place] % (Auto) 6.8 H Eos % (Auto) 0.5 L Baso % (Auto) 0.2 Gran # 7.21 H Lymph # (Auto) 1.6 [place] # (Auto) 0.7 H Eos # (Auto) 0.1 Baso # (Auto) 0.02 Sodium Potassium Chloride Carbon Dioxide Anion Gap BUN Creatinine Est GFR ( Amer) Est GFR (Non-Af Amer) POC Glucose (mg/dL) 109 Random Glucose Hemoglobin A1c 5.9 Calcium Phosphorus Magnesium Total Bilirubin AST ALT Alkaline Phosphatase Total Protein Albumin Globulin Albumin/Globulin Ratio Prealbumin Triglycerides Cholesterol LDL Cholesterol Direct HDL Cholesterol 05/19/18 05/19/18 05/19/18 06:30 07:28 12:00 WBC RBC Hgb Hct MCV MCH MCHC RDW Plt Count MPV Gran % Lymph % (Auto) [place] % (Auto) Eos % (Auto) Baso % (Auto) Gran # Lymph # (Auto) [place] # (Auto) Eos # (Auto) Baso # (Auto) Sodium 149 H Potassium 5.0 Chloride 115 H Carbon Dioxide 29 Anion Gap 10 BUN 8 Creatinine 0.8 Est GFR ( Amer) > 60 Est GFR (Non-Af Amer) > 60 POC Glucose (mg/dL) 128 H Random Glucose 132 H Hemoglobin A1c Calcium 9.7 Phosphorus 3.6 Magnesium 2.2 Total Bilirubin 0.7 AST 37 ALT 25 Alkaline Phosphatase 82 Total Protein 7.2 Albumin 3.5 Globulin 3.7 Albumin/Globulin Ratio 1.0 L Prealbumin 9.7 L Triglycerides Cholesterol LDL Cholesterol Direct HDL Cholesterol 05/19/18 05/19/18 05/19/18 12:10 14:10 16:19 WBC RBC Hgb Hct MCV MCH MCHC RDW Plt Count MPV Gran % Lymph % (Auto) [place] % (Auto) Eos % (Auto) Baso % (Auto) Gran # Lymph # (Auto) [place] # (Auto) Eos # (Auto) Baso # (Auto) Sodium Potassium Chloride Carbon Dioxide Anion Gap BUN Creatinine Est GFR ( Amer) Est GFR (Non-Af Amer) POC Glucose (mg/dL) 120 H 269 H Random Glucose Hemoglobin A1c Calcium Phosphorus 2.8 Magnesium 2.1 Total Bilirubin AST ALT Alkaline Phosphatase Total Protein Albumin Globulin Albumin/Globulin Ratio Prealbumin Triglycerides 80 Cholesterol 145 LDL Cholesterol Direct 83 HDL Cholesterol 36 Assessment & Plan - Assessment and Plan (Free Text) Assessment: Mr Bermeo is a 73 M, with pmhx significant for 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 Patient to await for endoscopic biopsy. Pending biopsy will discuss treatment options which can include out patient immunotherapy. Terry Alexandra MD Oncology Service
--- NOTE | 2018-05-19 19:24 | CP.PCM.PN ---
Subjective - Date & Time of Evaluation Date of Evaluation: 05/19/18 Time of Evaluation: 19:00 - Subjective Subjective: No acute events. Tracheostomy adjusted by surgery. Likely to go for endoscopy early this week ROS: 12 ROS negative Objective - Vital Signs/Intake and Output Vital Signs (last 24 hours): Temp Pulse Resp BP Pulse Ox 100.6 F H 93 H 18 141/80 97 05/19/18 18:00 05/19/18 18:00 05/19/18 18:00 05/19/18 18:00 05/19/18 06:00 Intake and Output: 05/19/18 05/20/18 18:59 06:59 Intake Total 983 Output Total 400 Balance 583 - Medications Medications: Current Medications Acetaminophen (Tylenol 650 Mg Supp) 650 mg RC Q6H PRN PRN Reason: Fever >100.4 F Last Admin: 05/19/18 17:21 Dose: 650 mg Albuterol/Ipratropium (Duoneb 3 Mg/0.5 Mg (3 Ml) Ud) 3 ml IH TIDRESP [facility] Last Admin: 05/19/18 13:28 Dose: 3 ml Heparin Sodium (Porcine) (Heparin) 5,000 units SC Q8 [facility] PRN Reason: Protocol Last Admin: 05/19/18 14:53 Dose: 5,000 units Levetiracetam 100 mg/ Sodium (Chloride) 101 mls @ 460 mls/hr IV Q12 [facility] Last Admin: 05/19/18 10:51 Dose: 460 mls/hr Phenytoin 100 mg/ Sodium (Chloride) 52 mls @ 104 mls/hr IVPB Q8 [facility] Last Admin: 05/19/18 14:50 Dose: 104 mls/hr Fat Emulsion Intravenous (Intralipid 20%) 250 mls @ 21 mls/hr IV MWF@1800 [facility] Stop: 05/22/18 17:59 Dextrose/Sodium Chloride (Dextrose 5%/0.45% Ns 1000 Ml) 1,000 mls @ 75 mls/hr IV .[id number] [facility] Last Admin: 05/19/18 17:21 Dose: 75 mls/hr Multivitamins/Vitamin C 10 ml/ (Amino Acids) 2,010 mls @ 83 mls/hr IV .Q24H [facility] Stop: 05/22/18 17:59 Lorazepam (Ativan) 1 mg IV Q4 PRN; Protocol PRN Reason: Seizure activity Pantoprazole Sodium (Protonix Inj) 40 mg IVP DAILY [facility] Last Admin: 05/19/18 10:51 Dose: 40 mg - Labs Labs: 05/19/18 06:30 05/19/18 06:30 PT 15.6 SECONDS (9.4-12.5) H 05/18/18 06:45 INR 1.35 05/18/18 06:45 - Neck Exam Neck Exam: absent: Lymphadenopathy - Respiratory Exam Respiratory Exam: Clear to Ausculation Bilateral, NORMAL BREATHING PATTERN - Cardiovascular Exam Cardiovascular Exam: REGULAR RHYTHM, +S1, +S2. absent: Murmur - GI/Abdominal Exam GI & Abdominal Exam: Soft, Normal Bowel Sounds. absent: Tenderness - Extremities Exam Extremities Exam: Full ROM, Normal Capillary Refill, Normal Inspection. 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 Patient to await for endoscopic biopsy. Pending biopsy will discuss treatment options which can include out patient immunotherapy. Terry Alexandra MD Oncology Service
--- NOTE | 2018-05-20 03:30 | CON ---
DATE: 05/19/2018 HISTORY OF PRESENT ILLNESS: Seen on the floor, resident. 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 The gastrostomy will be attempted by GI and likely be done open in coordination with ENT, . . For now, we will watch and schedule electively. Ganga Rivas MD
[2018-05-20] MEDS: Dextrose 5%/0.45% NS 1,000 ML IV SCH ×2 (06:30→22:44)
[2018-05-20] MEDS: Albuterol-Ipratrop 3 mg / 0.5 (3 ml) UD IH SCH ×3 (07:51→20:10)
[2018-05-20 08:09] LABS: BASO # 0.01 K/mm3 (0.0-2.0); BASO % 0.1 % (0.0-3.0); EOS # 0.2 (0.0-0.7); EOS % 2.1 % (1.5-5.0); GRAN # 8.48 (1.4-6.5); GRAN % 78.4 % (50.0-68.0); HEMOGLOBIN 10.4 g/dL (14.0-18.0); LYMPH # 1.4 (1.2-3.4); LYMPH % 12.6 % (22.0-35.0); MEAN CELL VOLUME 92.2 fl (80.0-105.0); MEAN CORPUSCULAR HGB CONC 31.4 g/dl (31.0-37.0); MEAN PLATELET VOLUME 9.8 fl (7.0-11.0); MONO # 0.7 (0.1-0.6); MONO % 6.8 % (1.0-6.0); RBC 3.59 10^6/uL (3.5-6.1); RED CELL DISTRIBUTION WIDTH 13.5 % (11.5-14.5); WHITE BLOOD COUNT 10.8 10^3/ul (4.5-11.0)
[2018-05-20 08:21] LABS: ALBUMIN 3.4 g/dL (3.0-4.8); ALT/SGPT 29 U/L (7-56); AST/SGOT 28 U/L (17-59); BLOOD UREA NITROGEN 10 mg/dL (7-21); CALCIUM 9.8 mg/dL (8.4-10.5); GFR NON-AFRICAN AMERICAN > 60
--- NOTE | 2018-05-20 10:12 | CP.PCM.PN ---
Subjective - Date & Time of Evaluation Date of Evaluation: 05/20/18 Time of Evaluation: 10:10 - Subjective Subjective: General Surgery Dr. Rivas Pt seen and examined @bedside. no acute events overnight. pt scheduled for EGD w / PEG placement w/ GI. pt has no complaints. Objective - Vital Signs/Intake and Output Vital Signs (last 24 hours): Temp Pulse Resp BP Pulse Ox 99 F 83 19 145/87 98 05/20/18 06:00 05/20/18 06:00 05/20/18 06:00 05/20/18 06:00 05/20/18 06:00 Intake and Output: 05/20/18 05/20/18 06:59 18:59 Intake Total 1979 Output Total 1999 Balance -21 - Medications Medications: Current Medications Acetaminophen (Tylenol 650 Mg Supp) 650 mg RC Q6H PRN PRN Reason: Fever >100.4 F Last Admin: 05/19/18 17:21 Dose: 650 mg Albuterol/Ipratropium (Duoneb 3 Mg/0.5 Mg (3 Ml) Ud) 3 ml IH TIDRESP [facility] Last Admin: 05/20/18 07:51 Dose: 3 ml Heparin Sodium (Porcine) (Heparin) 5,000 units SC Q8 [facility] PRN Reason: Protocol Last Admin: 05/20/18 05:49 Dose: 5,000 units Levetiracetam 100 mg/ Sodium (Chloride) 101 mls @ 460 mls/hr IV Q12 [facility] Last Admin: 05/19/18 21:49 Dose: 460 mls/hr Phenytoin 100 mg/ Sodium (Chloride) 52 mls @ 104 mls/hr IVPB Q8 [facility] Last Admin: 05/20/18 05:49 Dose: 104 mls/hr Fat Emulsion Intravenous (Intralipid 20%) 250 mls @ 21 mls/hr IV MWF@1800 [facility] Stop: 05/22/18 17:59 Dextrose/Sodium Chloride (Dextrose 5%/0.45% Ns 1000 Ml) 1,000 mls @ 75 mls/hr IV .[id number] [facility] Last Admin: 05/19/18 17:21 Dose: 75 mls/hr Multivitamins/Vitamin C 10 ml/ (Amino Acids) 2,010 mls @ 83 mls/hr IV .Q24H [facility] Stop: 05/22/18 17:59 Last Admin: 05/19/18 19:50 Dose: 83 mls/hr Lorazepam (Ativan) 1 mg IV Q4 PRN; Protocol PRN Reason: Seizure activity Pantoprazole Sodium (Protonix Inj) 40 mg IVP DAILY [facility] Last Admin: 05/19/18 10:51 Dose: 40 mg - Labs Labs: 05/20/18 08:00 05/20/18 08:00 PT 15.6 SECONDS (9.4-12.5) H 05/18/18 06:45 INR 1.35 05/18/18 06:45 - Constitutional Appears: Non-toxic, No Acute Distress - Head Exam Head Exam: NORMAL INSPECTION - Eye Exam Eye Exam: Normal appearance - ENT Exam ENT Exam: Mucous Membranes Moist Additional comments: trach collar in place - Respiratory Exam Respiratory Exam: NORMAL BREATHING PATTERN. absent: Accessory Muscle Use, Respiratory Distress - Cardiovascular Exam Cardiovascular Exam: REGULAR RHYTHM. absent: Bradycardia, Tachycardia - GI/Abdominal Exam GI & Abdominal Exam: Soft. absent: Distended, Tenderness - Extremities Exam Extremities Exam: Normal Inspection - Neurological Exam Neurological Exam: Alert, Awake, Oriented x3 - Psychiatric Exam Psychiatric exam: Normal Affect, Normal Mood - Skin Skin Exam: Dry, Intact, Normal Color, Warm Assessment and Plan - Assessment and Plan (Free Text) Assessment: 73 y/o M w/ dysphagia 2/2 recurrent laryngeal Ca - f/u GI for PEG - Recommend starting PPN while awaiting establishment of enteral route for feeding - Surgery on board should the pt. require an open gastrostomy tube - cont medical management Pt discussed w/ Dr Rob Mireles DO PGY3
[2018-05-20] MEDS: levETIRAcetam 100 MG in Sodium Chloride 0.9% 100 ML IV SCH ×2 (10:59→22:46)
--- NOTE | 2018-05-20 12:22 | CP.PCM.PN ---
Subjective - Date & Time of Evaluation Date of Evaluation: 05/20/18 Time of Evaluation: 12:19 - Subjective Subjective: Heme/Onc Progress Note for Dr. Alexandra -- Jose Guerra DO PGY2 Patient seen and examined at bedside. No acute overnight events. Tracheostomy tube in place. Patient currently on PPN. Patient states that throat feels congested. Patient denied CP, SOB, n/v/d, abdominal pain, fever, chills, STARR, or dizziness. Objective - Vital Signs/Intake and Output Vital Signs (last 24 hours): Temp Pulse Resp BP Pulse Ox 99 F 83 19 145/87 98 05/20/18 06:00 05/20/18 06:00 05/20/18 06:00 05/20/18 06:00 05/20/18 06:00 Intake and Output: 05/20/18 05/20/18 06:59 18:59 Intake Total 1979 Output Total 1999 Balance -21 - Medications Medications: Current Medications Acetaminophen (Tylenol 650 Mg Supp) 650 mg RC Q6H PRN PRN Reason: Fever >100.4 F Last Admin: 05/19/18 17:21 Dose: 650 mg Albuterol/Ipratropium (Duoneb 3 Mg/0.5 Mg (3 Ml) Ud) 3 ml IH TIDRESP [facility] Last Admin: 05/20/18 07:51 Dose: 3 ml Heparin Sodium (Porcine) (Heparin) 5,000 units SC Q8 [facility] PRN Reason: Protocol Last Admin: 05/20/18 05:49 Dose: 5,000 units Levetiracetam 100 mg/ Sodium (Chloride) 101 mls @ 460 mls/hr IV Q12 [facility] Last Admin: 05/20/18 10:59 Dose: 460 mls/hr Phenytoin 100 mg/ Sodium (Chloride) 52 mls @ 104 mls/hr IVPB Q8 [facility] Last Admin: 05/20/18 05:49 Dose: 104 mls/hr Fat Emulsion Intravenous (Intralipid 20%) 250 mls @ 21 mls/hr IV MWF@1800 [facility] Stop: 05/22/18 17:59 Dextrose/Sodium Chloride (Dextrose 5%/0.45% Ns 1000 Ml) 1,000 mls @ 75 mls/hr IV .[id number] [facility] Last Admin: 05/20/18 06:30 Dose: 75 mls/hr Multivitamins/Vitamin C 10 ml/ (Amino Acids) 2,010 mls @ 83 mls/hr IV .Q24H [facility] Stop: 05/22/18 17:59 Last Admin: 05/19/18 19:50 Dose: 83 mls/hr Lorazepam (Ativan) 1 mg IV Q4 PRN; Protocol PRN Reason: Seizure activity Pantoprazole Sodium (Protonix Inj) 40 mg IVP DAILY [facility] Last Admin: 05/20/18 11:00 Dose: 40 mg - Labs Labs: 05/20/18 08:00 05/20/18 08:00 PT 15.6 SECONDS (9.4-12.5) H 05/18/18 06:45 INR 1.35 05/18/18 06:45 - Constitutional Appears: No Acute Distress - Head Exam Head Exam: NORMAL INSPECTION - Eye Exam Eye Exam: Normal appearance - ENT Exam ENT Exam: Mucous Membranes Moist Additional comments: tracheostomy tube in place - Respiratory Exam Respiratory Exam: Clear to Ausculation Bilateral. absent: Rales, Rhonchi, Wheezes - Cardiovascular Exam Cardiovascular Exam: RRR. absent: Gallop, Rubs, Murmur - GI/Abdominal Exam GI & Abdominal Exam: Soft. absent: Distended, Guarding, Tenderness, Rebound - Extremities Exam Extremities Exam: Normal Inspection - Back Exam Back Exam: NORMAL INSPECTION - Neurological Exam Neurological Exam: Alert, Awake, Oriented x3 - Psychiatric Exam Psychiatric exam: Normal Affect, Normal Mood - Skin Skin Exam: Dry, Intact, Normal Color, Warm Assessment and Plan - Assessment and Plan (Free Text) Assessment: 73 yo M with PMHx of laryngeal cancer (Dx 2012) s/p largynectomy, concurrent chemo/XRT s/p tracheostomy currently admitted with progressive dysphagia and was subsequently found to have a large soft tissue mass on CT suspicious for recurrence. Plan: - F/u EGD biopsy with GI - Treatment options pending biopsy, which includes outpatient immunotherapy - Further recs per GI, ENT, surgery, and primary Case reviewed and discussed with attending. Jose Guerra, DO PGY2
[2018-05-20] MEDS ORDERED: Propofol 10 mg/ml Inj (20 ML) ONE (17:42)
[2018-05-20] MEDS ORDERED: Midazolam 2 MG/2 ML VIAL ONE (17:42)
[2018-05-20] MEDS ORDERED: Fat Emulsion 20% IV 250 ML IV SCH (18:00)
--- NOTE | 2018-05-20 18:12 | CP.PCM.PN ---
<Ochoa Matute - Last Filed: 05/20/18 18:53> Subjective - Date & Time of Evaluation Date of Evaluation: 05/20/18 Time of Evaluation: 08:00 - Subjective Subjective: Pt seen and examined at bedside this morning. Pt states that back of his throat and nose feel "clogged up" Objective - Vital Signs/Intake and Output Vital Signs (last 24 hours): Temp Pulse Resp BP Pulse Ox 99.7 F H 97 H 18 153/83 H 98 05/20/18 17:53 05/20/18 17:53 05/20/18 17:53 05/20/18 17:53 05/20/18 17:45 Intake and Output: 05/20/18 05/20/18 06:59 18:59 Intake Total 1978 158 Output Total 1999 Balance -21 158 - Medications Medications: Current Medications Acetaminophen (Tylenol 650 Mg Supp) 650 mg RC Q6H PRN PRN Reason: Fever >100.4 F Last Admin: 05/19/18 17:21 Dose: 650 mg Albuterol/Ipratropium (Duoneb 3 Mg/0.5 Mg (3 Ml) Ud) 3 ml IH TIDRESP [facility] Last Admin: 05/20/18 13:45 Dose: 3 ml Heparin Sodium (Porcine) (Heparin) 5,000 units SC Q8 [facility] PRN Reason: Protocol Last Admin: 05/20/18 13:25 Dose: Not Given Levetiracetam 100 mg/ Sodium (Chloride) 101 mls @ 460 mls/hr IV Q12 [facility] Last Admin: 05/20/18 10:59 Dose: 460 mls/hr Phenytoin 100 mg/ Sodium (Chloride) 52 mls @ 104 mls/hr IVPB Q8 [facility] Last Admin: 05/20/18 13:24 Dose: 104 mls/hr Dextrose/Sodium Chloride (Dextrose 5%/0.45% Ns 1000 Ml) 1,000 mls @ 75 mls/hr IV .[id number] [facility] Last Admin: 05/20/18 06:30 Dose: 75 mls/hr Amino Acids (Clinimix 4.25/5 % (1000 Ml)) 1,000 mls @ 42 mls/hr IV .[id number] [facility] Lorazepam (Ativan) 1 mg IV Q4 PRN; Protocol PRN Reason: Seizure activity Pantoprazole Sodium (Protonix Inj) 40 mg IVP DAILY [facility] Last Admin: 05/20/18 11:00 Dose: 40 mg - Labs Labs: 05/20/18 08:00 05/20/18 08:00 PT 15.6 SECONDS (9.4-12.5) H 05/18/18 06:45 INR 1.35 05/18/18 06:45 - Constitutional Appears: No Acute Distress - Head Exam Head Exam: ATRAUMATIC, NORMOCEPHALIC - Eye Exam Eye Exam: EOMI - Respiratory Exam Respiratory Exam: Clear to Ausculation Bilateral, NORMAL BREATHING PATTERN. absent: Accessory Muscle Use, Wheezes, Respiratory Distress, Stridor Additional comments: trach in place - Cardiovascular Exam Cardiovascular Exam: RRR, +S1, +S2 - GI/Abdominal Exam GI & Abdominal Exam: Soft. absent: Tenderness - Extremities Exam Extremities Exam: Full ROM. absent: Calf Tenderness - Neurological Exam Neurological Exam: Alert, Awake - Psychiatric Exam Psychiatric exam: Normal Affect, Normal Mood - Skin Skin Exam: Dry, Normal Color, Warm Assessment and Plan - Assessment and Plan (Free Text) Assessment: Pt is a 73 M with PMH of seizure and throat cancer (Dx 2012) s/p tracheostomy who presented with a 3 day history of dysphagia and dysphonia. Patient had Head/ Neck CT showing oropharyngeal mass concerning for malignancy. GI, ENT, General surgery are consulted and following patient. Plan: Dysphagia 2/2 oropharyngeal mass - PPN order renewed today for nutritional needs - continue D5 1/2 NS@75 - GI Karen, EGD performed today - Heme/Onc Ibrahima, follow up after biopsy, possibly out pt immunotherapy - Surgery denice Rivas in case pt needs open gastrostomy tube - Pallative care following - Keep pt NPO - continue O2 - Imaging showing large soft tissue mass density R glottic area s/p total laryngectomy, suspicious of mets - aspiration precautions and suction prn Hx seizure - keppra 100mg IVPB Q12 - dilantin 100mg IVPB Q8 - ativan 1mg Q4 prn Hx COPD - Duonebs 3ml TID - Continue to monitor Ppx - Protonix - Heparin Pt seen, examined, assessment, and plan discussed with Dr Lizzy Matute PGY1 <Ashley Ball - Last Filed: 05/20/18 19:17> Objective - Vital Signs/Intake and Output Vital Signs (last 24 hours): Temp Pulse Resp BP Pulse Ox 100.4 F H 97 H 18 129/78 98 05/20/18 18:20 05/20/18 18:20 05/20/18 18:20 05/20/18 18:20 05/20/18 18:20 Intake and Output: 05/20/18 05/21/18 18:59 06:59 Intake Total 1981 Output Total 300 Balance 1681 - Medications Medications: Current Medications Acetaminophen (Tylenol 650 Mg Supp) 650 mg RC Q6H PRN PRN Reason: Fever >100.4 F Last Admin: 05/19/18 17:21 Dose: 650 mg Albuterol/Ipratropium (Duoneb 3 Mg/0.5 Mg (3 Ml) Ud) 3 ml IH TIDRESP [facility] Last Admin: 05/20/18 13:45 Dose: 3 ml Heparin Sodium (Porcine) (Heparin) 5,000 units SC Q8 [facility] PRN Reason: Protocol Last Admin: 05/20/18 13:25 Dose: Not Given Levetiracetam 100 mg/ Sodium (Chloride) 101 mls @ 460 mls/hr IV Q12 [facility] Last Admin: 05/20/18 10:59 Dose: 460 mls/hr Phenytoin 100 mg/ Sodium (Chloride) 52 mls @ 104 mls/hr IVPB Q8 [facility] Last Admin: 05/20/18 13:24 Dose: 104 mls/hr Dextrose/Sodium Chloride (Dextrose 5%/0.45% Ns 1000 Ml) 1,000 mls @ 75 mls/hr IV .[id number] [facility] Last Admin: 05/20/18 06:30 Dose: 75 mls/hr Amino Acids (Clinimix 4.25/5 % (1000 Ml)) 1,000 mls @ 42 mls/hr IV .[id number] [facility] Lorazepam (Ativan) 1 mg IV Q4 PRN; Protocol PRN Reason: Seizure activity Pantoprazole Sodium (Protonix Inj) 40 mg IVP DAILY [facility] Last Admin: 05/20/18 11:00 Dose: 40 mg - Labs Labs: 05/20/18 08:00 05/20/18 08:00 PT 15.6 SECONDS (9.4-12.5) H 05/18/18 06:45 INR 1.35 05/18/18 06:45 Attending/Attestation - Attestation I have personally seen and examined this patient.: Yes I have fully participated in the care of the patient.: Yes I have reviewed all pertinent clinical information, including history, physical exam and plan: Yes Notes (Text): 05/20/18 19:14 73 year old male with past medical history of seizure and throat cnacer s/p tracheostomy who presented with complaint of dysphagia. CT neck showed oropharyngeal mass concerning for malignance. He is NPO on PPN. GI and surgery are following for possible EGD and PEG. Hematology/oncology following as well. ENT follow up was requested for possible flexible laryngoscopy and biopsy. Ashley Ball MD Hospitalist.
[2018-05-20] MEDS: Amino/Dext 4.25/5 1,000 ML IV SCH (19:11)
[2018-05-21] MEDS: Albuterol-Ipratrop 3 mg / 0.5 (3 ml) UD IH SCH ×3 (07:47→20:22)
--- NOTE | 2018-05-21 08:43 | CP.PCM.PN ---
<Ronald Vergara - Last Filed: 05/21/18 19:08> Subjective - Date & Time of Evaluation Date of Evaluation: 05/21/18 Time of Evaluation: 08:36 - Subjective Subjective: GI Fellow PGY4, Patient is comfortable in bed. He is using suctioning device as needed. No complaints at this time. Objective - Vital Signs/Intake and Output Vital Signs (last 24 hours): Temp Pulse Resp BP Pulse Ox 98.5 F 81 20 137/85 99 05/21/18 06:00 05/21/18 06:00 05/21/18 06:00 05/21/18 06:00 05/21/18 06:00 Intake and Output: 05/21/18 05/21/18 06:59 18:59 Intake Total 1404 Output Total 1050 Balance 354 - Medications Medications: Current Medications Acetaminophen (Tylenol 650 Mg Supp) 650 mg RC Q6H PRN PRN Reason: Fever >100.4 F Last Admin: 05/19/18 17:21 Dose: 650 mg Albuterol/Ipratropium (Duoneb 3 Mg/0.5 Mg (3 Ml) Ud) 3 ml IH TIDRESP [facility] Last Admin: 05/21/18 07:47 Dose: 3 ml Heparin Sodium (Porcine) (Heparin) 5,000 units SC Q8 [facility] PRN Reason: Protocol Last Admin: 05/21/18 05:33 Dose: 5,000 units Levetiracetam 100 mg/ Sodium (Chloride) 101 mls @ 460 mls/hr IV Q12 [facility] Last Admin: 05/20/18 22:46 Dose: 460 mls/hr Phenytoin 100 mg/ Sodium (Chloride) 52 mls @ 104 mls/hr IVPB Q8 [facility] Last Admin: 05/21/18 05:34 Dose: 104 mls/hr Dextrose/Sodium Chloride (Dextrose 5%/0.45% Ns 1000 Ml) 1,000 mls @ 75 mls/hr IV .[id number] [facility] Last Admin: 05/20/18 22:44 Dose: 75 mls/hr Amino Acids (Clinimix 4.25/5 % (1000 Ml)) 1,000 mls @ 42 mls/hr IV .[id number] [facility] Last Admin: 05/20/18 19:11 Dose: 42 mls/hr Lorazepam (Ativan) 1 mg IV Q4 PRN; Protocol PRN Reason: Seizure activity Pantoprazole Sodium (Protonix Inj) 40 mg IVP DAILY [facility] Last Admin: 05/20/18 11:00 Dose: 40 mg - Labs Labs: 05/20/18 08:00 05/20/18 08:00 PT 15.6 SECONDS (9.4-12.5) H 05/18/18 06:45 INR 1.35 05/18/18 06:45 - Constitutional Appears: No Acute Distress - Head Exam Head Exam: NORMAL INSPECTION - Eye Exam Eye Exam: Normal appearance - ENT Exam ENT Exam: Mucous Membranes Moist - Respiratory Exam Respiratory Exam: Clear to Ausculation Bilateral, NORMAL BREATHING PATTERN - Cardiovascular Exam Cardiovascular Exam: REGULAR RHYTHM - GI/Abdominal Exam GI & Abdominal Exam: Soft, Normal Bowel Sounds. absent: Tenderness - Extremities Exam Extremities Exam: Normal Inspection - Neurological Exam Neurological Exam: Alert, Awake, Oriented x3 - Psychiatric Exam Psychiatric exam: Normal Affect, Normal Mood - Skin Skin Exam: Dry, Normal Color Assessment and Plan - Assessment and Plan (Free Text) Assessment: Patient is a 73yo male with PMHx significant for laryngeal cancer s/p tracheostomy who presents with 3 days of dysphagia #Obstructing laryngopharynx mass #Dysphagia #Seizure disorder #COPD Plan: -CT neck reviewed. -EGD 05/20 with laryngopharynx mass obstructing esophagus. -ENT plan noted -He will need open gastric tube. Endoscopic placement is not amenable at this time. -Path pending <Karen,Kovil V - Last Filed: 05/22/18 00:49> Objective - Vital Signs/Intake and Output Vital Signs (last 24 hours): Temp Pulse Resp BP Pulse Ox 99 F 98 H 18 138/74 100 05/21/18 18:00 05/21/18 18:00 05/21/18 18:00 05/21/18 18:00 05/21/18 09:00 Intake and Output: 05/21/18 05/22/18 18:59 06:59 Intake Total 929 Output Total 500 Balance 429 - Medications Medications: Current Medications Acetaminophen (Tylenol 650 Mg Supp) 650 mg RC Q6H PRN PRN Reason: Fever >100.4 F Last Admin: 05/19/18 17:21 Dose: 650 mg Albuterol/Ipratropium (Duoneb 3 Mg/0.5 Mg (3 Ml) Ud) 3 ml IH TIDRESP [facility] Last Admin: 05/21/18 20:22 Dose: 3 ml Heparin Sodium (Porcine) (Heparin) 5,000 units SC Q8 [facility] PRN Reason: Protocol Last Admin: 05/21/18 21:52 Dose: 5,000 units Phenytoin 100 mg/ Sodium (Chloride) 52 mls @ 104 mls/hr IVPB Q8 [facility] Last Admin: 05/21/18 22:29 Dose: 104 mls/hr Amino Acids (Clinimix 4.25/5 % (1000 Ml)) 1,000 mls @ 42 mls/hr IV .[id number] [facility] Last Admin: 05/21/18 19:14 Dose: 42 mls/hr Levetiracetam (Keppra 500mg Ivpb) 500 mg in 100 mls @ 400 mls/hr IVPB Q12 [facility] Last Admin: 05/21/18 21:52 Dose: 400 mls/hr Lorazepam (Ativan) 1 mg IV Q4 PRN; Protocol PRN Reason: Seizure activity Pantoprazole Sodium (Protonix Inj) 40 mg IVP DAILY [facility] Last Admin: 05/21/18 10:51 Dose: 40 mg - Labs Labs: 05/21/18 10:30 05/21/18 10:30 PT 15.6 SECONDS (9.4-12.5) H 05/18/18 06:45 INR 1.35 05/18/18 06:45 Attending/Attestation - Attestation I have personally seen and examined this patient.: Yes I have fully participated in the care of the patient.: Yes I have reviewed all pertinent clinical information, including history, physical exam and plan: Yes Notes (Text): This is an addendum to GI progress report dictated by the GI Fellow.The patient was seen and examined earlier. Medical records, lab studies, imagings were reviewed. Last 24 hours events reviewed. Agreed with the above treatment plan as outlined in GI Fellow 's notes with the addition of the following I am waiting for pathology Impossible to pass endoscope beyond the obstructing pharyngeal lesion Surgical gastrostomy recommended ENT and oncological follow-up 05/22/18 00:47
[2018-05-21] MEDS ORDERED: Iohexol 350 MG/100 ML VIAL ONE (10:12)
--- NOTE | 2018-05-21 10:21 | CP.PCM.PN ---
Subjective - Date & Time of Evaluation Date of Evaluation: 05/21/18 Time of Evaluation: 10:18 - Subjective Subjective: Heme/Onc Progress Note for Dr. Alexandra -- Jose Guerra DO PGY2 Patient seen and examined at bedside. No acute overnight events. EGD with biopsy performed yesterday. Patient offers no complaints today. Patient denied CP, SOB, n/v/d, abdominal pain, fever, chills, STARR or dizziness. Objective - Vital Signs/Intake and Output Vital Signs (last 24 hours): Temp Pulse Resp BP Pulse Ox 98.5 F 81 20 137/85 99 05/21/18 06:00 05/21/18 06:00 05/21/18 06:00 05/21/18 06:00 05/21/18 06:00 Intake and Output: 05/21/18 05/21/18 06:59 18:59 Intake Total 1404 Output Total 1050 Balance 354 - Medications Medications: Current Medications Acetaminophen (Tylenol 650 Mg Supp) 650 mg RC Q6H PRN PRN Reason: Fever >100.4 F Last Admin: 05/19/18 17:21 Dose: 650 mg Albuterol/Ipratropium (Duoneb 3 Mg/0.5 Mg (3 Ml) Ud) 3 ml IH TIDRESP [facility] Last Admin: 05/21/18 07:47 Dose: 3 ml Heparin Sodium (Porcine) (Heparin) 5,000 units SC Q8 [facility] PRN Reason: Protocol Last Admin: 05/21/18 05:33 Dose: 5,000 units Levetiracetam 100 mg/ Sodium (Chloride) 101 mls @ 460 mls/hr IV Q12 [facility] Last Admin: 05/20/18 22:46 Dose: 460 mls/hr Phenytoin 100 mg/ Sodium (Chloride) 52 mls @ 104 mls/hr IVPB Q8 [facility] Last Admin: 05/21/18 05:34 Dose: 104 mls/hr Dextrose/Sodium Chloride (Dextrose 5%/0.45% Ns 1000 Ml) 1,000 mls @ 75 mls/hr IV .[id number] [facility] Last Admin: 05/20/18 22:44 Dose: 75 mls/hr Amino Acids (Clinimix 4.25/5 % (1000 Ml)) 1,000 mls @ 42 mls/hr IV .[id number] [facility] Last Admin: 05/20/18 19:11 Dose: 42 mls/hr Lorazepam (Ativan) 1 mg IV Q4 PRN; Protocol PRN Reason: Seizure activity Pantoprazole Sodium (Protonix Inj) 40 mg IVP DAILY [facility] Last Admin: 05/20/18 11:00 Dose: 40 mg - Labs Labs: 05/20/18 08:00 05/20/18 08:00 PT 15.6 SECONDS (9.4-12.5) H 05/18/18 06:45 INR 1.35 05/18/18 06:45 - Constitutional Appears: No Acute Distress - Head Exam Head Exam: NORMAL INSPECTION - Eye Exam Eye Exam: Normal appearance Pupil Exam: NORMAL ACCOMODATION - ENT Exam Additional comments: tracheostomy tube in place; no signs of erythema or discharge. - Neck Exam Additional comments: tracheostomy in place - Respiratory Exam Respiratory Exam: Clear to Ausculation Bilateral. absent: Rales, Rhonchi, Wheezes - Cardiovascular Exam Cardiovascular Exam: RRR, +S1, +S2. absent: Gallop, Rubs, Murmur - GI/Abdominal Exam GI & Abdominal Exam: Soft. absent: Distended, Guarding, Tenderness, Rebound - Extremities Exam Extremities Exam: Normal Inspection - Back Exam Back Exam: NORMAL INSPECTION - Neurological Exam Neurological Exam: Alert, Awake, Oriented x3 - Psychiatric Exam Psychiatric exam: Normal Affect, Normal Mood - Skin Skin Exam: Dry, Intact, Normal Color, Warm Assessment and Plan - Assessment and Plan (Free Text) Assessment: 73 yo M with PMHx of laryngeal cancer (Dx 2013) s/p largynectomy, concurrent chemo/XRT s/p tracheostomy currently admitted with progressive dysphagia and was subsequently found to have a large soft tissue mass on CT suspicious for recurrence. Plan: - F/u EGD biopsy with GI - Treatment options pending biopsy, which includes outpatient immunotherapy - GI unable to place PEG tube endoscopically, will require open g-tube per surgery - Further recs per GI, ENT, surgery, and primary Case reviewed and discussed with attending. Jose Guerra, DO PGY2
--- NOTE | 2018-05-21 10:24 | CP.PCM.PN ---
Subjective - Date & Time of Evaluation Date of Evaluation: 05/21/18 Time of Evaluation: 09:00 - Subjective Subjective: General Surgery Dr. Rivas Pt seen and examined @bedside. Pt went for potential PEG placement yesterday, however, scope unable to advance beyond pharyngeal mass. no acute events overnight. pt has no complaints. denies F/C, N/V, abd pain. Pt suctioning own secretions Objective - Vital Signs/Intake and Output Vital Signs (last 24 hours): Temp Pulse Resp BP Pulse Ox 98.5 F 81 20 137/85 99 05/21/18 06:00 05/21/18 06:00 05/21/18 06:00 05/21/18 06:00 05/21/18 06:00 Intake and Output: 05/21/18 05/21/18 06:59 18:59 Intake Total 1404 Output Total 1050 Balance 354 - Medications Medications: Current Medications Acetaminophen (Tylenol 650 Mg Supp) 650 mg RC Q6H PRN PRN Reason: Fever >100.4 F Last Admin: 05/19/18 17:21 Dose: 650 mg Albuterol/Ipratropium (Duoneb 3 Mg/0.5 Mg (3 Ml) Ud) 3 ml IH TIDRESP [facility] Last Admin: 05/21/18 07:47 Dose: 3 ml Heparin Sodium (Porcine) (Heparin) 5,000 units SC Q8 [facility] PRN Reason: Protocol Last Admin: 05/21/18 05:33 Dose: 5,000 units Levetiracetam 100 mg/ Sodium (Chloride) 101 mls @ 460 mls/hr IV Q12 [facility] Last Admin: 05/20/18 22:46 Dose: 460 mls/hr Phenytoin 100 mg/ Sodium (Chloride) 52 mls @ 104 mls/hr IVPB Q8 [facility] Last Admin: 05/21/18 05:34 Dose: 104 mls/hr Dextrose/Sodium Chloride (Dextrose 5%/0.45% Ns 1000 Ml) 1,000 mls @ 75 mls/hr IV .[id number] [facility] Last Admin: 05/20/18 22:44 Dose: 75 mls/hr Amino Acids (Clinimix 4.25/5 % (1000 Ml)) 1,000 mls @ 42 mls/hr IV .[id number] [facility] Last Admin: 05/20/18 19:11 Dose: 42 mls/hr Lorazepam (Ativan) 1 mg IV Q4 PRN; Protocol PRN Reason: Seizure activity Pantoprazole Sodium (Protonix Inj) 40 mg IVP DAILY [facility] Last Admin: 05/20/18 11:00 Dose: 40 mg - Labs Labs: 05/20/18 08:00 05/20/18 08:00 PT 15.6 SECONDS (9.4-12.5) H 05/18/18 06:45 INR 1.35 05/18/18 06:45 - Constitutional Appears: Non-toxic, No Acute Distress - Head Exam Head Exam: NORMAL INSPECTION - Eye Exam Eye Exam: Normal appearance - ENT Exam ENT Exam: Mucous Membranes Moist - Neck Exam Additional comments: trach in place - Respiratory Exam Respiratory Exam: NORMAL BREATHING PATTERN. absent: Accessory Muscle Use, Respiratory Distress - Cardiovascular Exam Cardiovascular Exam: REGULAR RHYTHM. absent: Bradycardia, Tachycardia - GI/Abdominal Exam GI & Abdominal Exam: Soft. absent: Distended - Extremities Exam Extremities Exam: Normal Inspection - Neurological Exam Neurological Exam: Alert, Awake - Psychiatric Exam Psychiatric exam: Normal Affect, Normal Mood - Skin Skin Exam: absent: Dry, Intact, Warm Assessment and Plan - Assessment and Plan (Free Text) Assessment: 73 y/o M w/ obstructing pharyngeal mass - NPO - PPN/TPN - CT A/P for eval of abd anatomy/mets - tentative plan for G-tube placement ; will coordinate w/ Dr. Tapia - cont medical management Pt seen and discussed w/ Dr. Rob Mireles DO PGY3
[2018-05-21 10:45] LABS: BASO # 0.02 K/mm3 (0.0-2.0); BASO % 0.2 % (0.0-3.0); EOS # 0.1 (0.0-0.7); EOS % 1.2 % (1.5-5.0); GRAN # 7.62 (1.4-6.5); GRAN % 78.3 % (50.0-68.0); LYMPH # 1.3 (1.2-3.4); LYMPH % 12.8 % (22.0-35.0); MEAN CELL VOLUME 88.6 fl (80.0-105.0); MEAN CORPUSCULAR HEMOGLOBIN 28.6 pg (25.0-35.0); MEAN CORPUSCULAR HGB CONC 32.3 g/dl (31.0-37.0); MEAN PLATELET VOLUME 9.4 fl (7.0-11.0); MONO # 0.7 (0.1-0.6); MONO % 7.5 % (1.0-6.0); RBC 3.5 10^6/uL (3.5-6.1); WHITE BLOOD COUNT 9.7 10^3/ul (4.5-11.0)
[2018-05-21 10:57] LABS: ALB/GLOB RATIO 0.9 (1.1-1.8); ALBUMIN 3.2 g/dL (3.0-4.8); ALT/SGPT 29 U/L (7-56); AST/SGOT 26 U/L (17-59); BLOOD UREA NITROGEN 10 mg/dL (7-21); CALCIUM 9.5 mg/dL (8.4-10.5); GFR NON-AFRICAN AMERICAN > 60
[2018-05-21] MEDS: levETIRAcetam 100 MG in Sodium Chloride 0.9% 100 ML IV SCH ×2 (10:57→11:08)
[2018-05-21] MEDS: levETIRAcetam 500mg IVPB 500 MG/100 ML BAG IVPB SCH ×2 (11:40→21:52)
--- NOTE | 2018-05-21 12:07 | PN ---
DATE: 05/21/2018 Mino Bermeo is seen on the floor. The attempted PEG was unsuccessful. We will plan for an open procedure later on in the week after discussion with Dr. Clark. We will coordinate it to do a single time. Ganga Rivas MD
--- NOTE | 2018-05-21 18:57 | CP.PCM.PN ---
<Ochoa Matute - Last Filed: 05/21/18 19:20> Subjective - Date & Time of Evaluation Date of Evaluation: 05/21/18 Time of Evaluation: 06:30 - Subjective Subjective: Pt seen and examined this morning at bedside. Pt has no new complaints. Pt denies chest pain or SOB. Objective - Vital Signs/Intake and Output Vital Signs (last 24 hours): Temp Pulse Resp BP Pulse Ox 99 F 95 H 18 138/74 99 05/21/18 18:00 05/21/18 18:00 05/21/18 18:00 05/21/18 18:00 05/21/18 06:00 Intake and Output: 05/21/18 05/21/18 06:59 18:59 Intake Total 1404 Output Total 1050 Balance 354 - Medications Medications: Current Medications Acetaminophen (Tylenol 650 Mg Supp) 650 mg RC Q6H PRN PRN Reason: Fever >100.4 F Last Admin: 05/19/18 17:21 Dose: 650 mg Albuterol/Ipratropium (Duoneb 3 Mg/0.5 Mg (3 Ml) Ud) 3 ml IH TIDRESP [facility] Last Admin: 05/21/18 13:16 Dose: 3 ml Heparin Sodium (Porcine) (Heparin) 5,000 units SC Q8 [facility] PRN Reason: Protocol Last Admin: 05/21/18 13:33 Dose: 5,000 units Phenytoin 100 mg/ Sodium (Chloride) 52 mls @ 104 mls/hr IVPB Q8 [facility] Last Admin: 05/21/18 13:49 Dose: 104 mls/hr Amino Acids (Clinimix 4.25/5 % (1000 Ml)) 1,000 mls @ 42 mls/hr IV .[id number] [facility] Last Admin: 05/20/18 19:11 Dose: 42 mls/hr Levetiracetam (Keppra 500mg Ivpb) 500 mg in 100 mls @ 400 mls/hr IVPB Q12 [facility] Last Admin: 05/21/18 11:40 Dose: 400 mls/hr Lorazepam (Ativan) 1 mg IV Q4 PRN; Protocol PRN Reason: Seizure activity Pantoprazole Sodium (Protonix Inj) 40 mg IVP DAILY [facility] Last Admin: 05/21/18 10:51 Dose: 40 mg - Labs Labs: 05/21/18 10:30 05/21/18 10:30 PT 15.6 SECONDS (9.4-12.5) H 05/18/18 06:45 INR 1.35 05/18/18 06:45 - Constitutional Appears: No Acute Distress - Head Exam Head Exam: ATRAUMATIC - Respiratory Exam Respiratory Exam: Clear to Ausculation Bilateral, NORMAL BREATHING PATTERN Additional comments: tracheostomy in place - Cardiovascular Exam Cardiovascular Exam: REGULAR RHYTHM - GI/Abdominal Exam GI & Abdominal Exam: Normal Bowel Sounds - Extremities Exam Extremities Exam: absent: Calf Tenderness, Pedal Edema - Neurological Exam Neurological Exam: Awake, Oriented x3 - Psychiatric Exam Psychiatric exam: Normal Affect, Normal Mood - Skin Skin Exam: Dry, Normal Color, Warm Assessment and Plan - Assessment and Plan (Free Text) Assessment: Pt is a 73 M with PMH of seizure and throat cancer (Dx 2012) s/p tracheostomy who presented with a 3 day history of dysphagia and dysphonia. Patient had Head/ Neck CT showing oropharyngeal mass concerning for malignancy. GI, ENT, General surgery are consulted and following patient. Plan: Dysphagia 2/2 oropharyngeal mass - continue PPN - discontinue D5 1/ NS - GI Karen, EGD performed yesterday, biopsy taken during procedure - Heme/Onc Ibrahima, follow up after biopsy, possibly out pt immunotherapy - Surgery Rob, attempted PEG was unsuccessful, planning to place a G-Tube - Pallative care following - Keep pt NPO - continue O2 - Imaging showing large soft tissue mass density R glottic area s/p total laryngectomy, suspicious of mets - aspiration precautions and suction prn Hx seizure - contacted pharmacy to confirm medications and dosages - keppra 500mg IVPB Q12 - dilantin 100mg IVPB Q8 - ativan 1mg Q4 prn Hx COPD - Duonebs 3ml TID - Continue to monitor Ppx - Protonix - Heparin Pt seen, examined, assessment and plan discussed with Dr Ball. Ochoa Matute PGY1 Internal Medicine Resident <Ashley Ball - Last Filed: 05/22/18 07:00> Objective - Vital Signs/Intake and Output Vital Signs (last 24 hours): Temp Pulse Resp BP Pulse Ox 98.8 F 86 20 117/75 99 05/22/18 06:00 05/22/18 06:00 05/22/18 06:00 05/22/18 06:00 05/22/18 06:00 Intake and Output: 05/21/18 05/22/18 18:59 06:59 Intake Total 929 670 Output Total 500 450 Balance 429 220 - Medications Medications: Current Medications Acetaminophen (Tylenol 650 Mg Supp) 650 mg RC Q6H PRN PRN Reason: Fever >100.4 F Last Admin: 05/19/18 17:21 Dose: 650 mg Albuterol/Ipratropium (Duoneb 3 Mg/0.5 Mg (3 Ml) Ud) 3 ml IH TIDRESP [facility] Last Admin: 05/21/18 20:22 Dose: 3 ml Heparin Sodium (Porcine) (Heparin) 5,000 units SC Q8 [facility] PRN Reason: Protocol Last Admin: 05/22/18 04:59 Dose: 5,000 units Phenytoin 100 mg/ Sodium (Chloride) 52 mls @ 104 mls/hr IVPB Q8 [facility] Last Admin: 05/22/18 04:59 Dose: 104 mls/hr Amino Acids (Clinimix 4.25/5 % (1000 Ml)) 1,000 mls @ 42 mls/hr IV .[id number] [facility] Last Admin: 05/21/18 19:14 Dose: 42 mls/hr Levetiracetam (Keppra 500mg Ivpb) 500 mg in 100 mls @ 400 mls/hr IVPB Q12 [facility] Last Admin: 05/21/18 21:52 Dose: 400 mls/hr Lorazepam (Ativan) 1 mg IV Q4 PRN; Protocol PRN Reason: Seizure activity Pantoprazole Sodium (Protonix Inj) 40 mg IVP DAILY [facility] Last Admin: 05/21/18 10:51 Dose: 40 mg - Labs Labs: 05/21/18 10:30 05/21/18 10:30 PT 15.6 SECONDS (9.4-12.5) H 05/18/18 06:45 INR 1.35 05/18/18 06:45 Attending/Attestation - Attestation I have personally seen and examined this patient.: Yes I have fully participated in the care of the patient.: Yes I have reviewed all pertinent clinical information, including history, physical exam and plan: Yes Notes (Text): 05/21/18 73 year old male with past medical history of seizure and throat cnacer s/p tracheostomy who presented with complaint of dysphagia. CT neck showed oropharyngeal mass concerning for malignancy. He is NPO on PPN. EGD was yesterday as above. Biopsy was taken and pending pathology. Surgery is following for G-tube this week. ENT and oncology follow up requested. Patient is on dilantin and keppra for history of seizure. Ashley Ball MD Hospitalist.
[2018-05-21] MEDS: Amino/Dext 4.25/5 1,000 ML IV SCH (19:14)
[2018-05-21] MEDS ORDERED: Phenytoin 100 mg/2 ml Inj ONE (21:38)
[2018-05-22 07:15] LABS: BASO # 0.02 K/mm3 (0.0-2.0); BASO % 0.2 % (0.0-3.0); EOS # 0.1 (0.0-0.7); EOS % 1.1 % (1.5-5.0); GRAN # 7.87 (1.4-6.5); GRAN % 81.9 % (50.0-68.0); HEMOGLOBIN 9.6 g/dL (14.0-18.0); LYMPH % 9.9 % (22.0-35.0); MEAN CORPUSCULAR HEMOGLOBIN 28.8 pg (25.0-35.0); MEAN CORPUSCULAR HGB CONC 32.8 g/dl (31.0-37.0); MEAN PLATELET VOLUME 9.5 fl (7.0-11.0); MONO # 0.7 (0.1-0.6); MONO % 6.9 % (1.0-6.0); RBC 3.33 10^6/uL (3.5-6.1); WHITE BLOOD COUNT 9.6 10^3/ul (4.5-11.0)
[2018-05-22 07:17] LABS: ALB/GLOB RATIO 0.9 (1.1-1.8); ALBUMIN 3.3 g/dL (3.0-4.8); ALT/SGPT 32 U/L (7-56); AST/SGOT 41 U/L (17-59); BLOOD UREA NITROGEN 10 mg/dL (7-21); CALCIUM 9.2 mg/dL (8.4-10.5); GFR NON-AFRICAN AMERICAN > 60
[2018-05-22] MEDS: Albuterol-Ipratrop 3 mg / 0.5 (3 ml) UD IH SCH ×5 (08:35→20:18)
[2018-05-22] MEDS: levETIRAcetam 500mg IVPB 500 MG/100 ML BAG IVPB SCH ×2 (10:08→21:18)
--- NOTE | 2018-05-22 11:09 | CT ---
Date of service: 05/22/2018 PROCEDURE: CT Abdomen and Pelvis with contrast HISTORY: pre-op gastrostomy COMPARISON: None. TECHNIQUE: Contrast dose: 100 cc Omnipaque 350. Radiation dose: Total exam DLP = 337.90 mGy-cm. This CT exam was performed using one or more of the following dose reduction techniques: Automated exposure control, adjustment of the mA and/or kV according to patient size, and/or use of iterative reconstruction technique. FINDINGS: LOWER THORAX: Unremarkable. LIVER: Hepatic steatosis. No focal masses. No intrahepatic bile duct dilatation or perihepatic ascites. GALLBLADDER AND BILE DUCTS: Unremarkable. PANCREAS: Unremarkable. No gross lesion or ductal dilatation. SPLEEN: Unremarkable. ADRENALS: Unremarkable. No mass. KIDNEYS AND URETERS: Unremarkable. No hydronephrosis. No solid mass. Incidental finding(s): Dominant simple cyst left kidney 3.7 x 5.7 cm mid upper pole region. VASCULATURE: Unremarkable. No aortic aneurysm. BOWEL: Unremarkable. No obstruction. No gross mural thickening. Normal anatomic location 7 unremarkable stomach. APPENDIX: Normal appendix. PERITONEUM: Unremarkable. No free fluid. No free air. LYMPH NODES: Unremarkable. No enlarged lymph nodes. BLADDER: Unremarkable. REPRODUCTIVE: Markedly enlarged prostate. Prostate measures 4.8 x 6 cm. BONES: No acute fracture. Solitary sclerotic focus medial aspect of the iliac bone on the right likely a bone island. Degenerative changes noted in both hips. OTHER FINDINGS: None. IMPRESSION: No significant or acute findings to account for/ related to the clinical presentation. Additional benign and/or incidental findings described above.
--- NOTE | 2018-05-22 11:15 | CARD ---
APPROVED REPORT Date of service: 05/22/2018 EKG Measurement Heart [id number] <Conclusion> Normal sinus rhythm Nonspecific T wave abnormality Abnormal ECG
--- NOTE | 2018-05-22 12:31 | CP.PCM.PN ---
Subjective - Date & Time of Evaluation Date of Evaluation: 05/22/18 Time of Evaluation: 12:27 - Subjective Subjective: Pt seen and examined resting in bed. Plan explained to patient. Pt had EGD with biopsy, await Gtube. Needs social work input Objective - Vital Signs/Intake and Output Vital Signs (last 24 hours): Temp Pulse Resp BP Pulse Ox 98.7 F 81 20 111/64 99 05/22/18 12:00 05/22/18 12:00 05/22/18 12:00 05/22/18 12:00 05/22/18 06:00 Intake and Output: 05/22/18 05/22/18 06:59 18:59 Intake Total 670 Output Total 450 Balance 220 - Medications Medications: Current Medications Acetaminophen (Tylenol 650 Mg Supp) 650 mg RC Q6H PRN PRN Reason: Fever >100.4 F Last Admin: 05/19/18 17:21 Dose: 650 mg Albuterol/Ipratropium (Duoneb 3 Mg/0.5 Mg (3 Ml) Ud) 3 ml IH TIDRESP [facility] Last Admin: 05/22/18 08:41 Dose: 3 ml Heparin Sodium (Porcine) (Heparin) 5,000 units SC Q8 [facility] PRN Reason: Protocol Last Admin: 05/22/18 04:59 Dose: 5,000 units Phenytoin 100 mg/ Sodium (Chloride) 52 mls @ 104 mls/hr IVPB Q8 [facility] Last Admin: 05/22/18 04:59 Dose: 104 mls/hr Amino Acids (Clinimix 4.25/5 % (1000 Ml)) 1,000 mls @ 42 mls/hr IV .[id number] [facility] Last Admin: 05/21/18 19:14 Dose: 42 mls/hr Levetiracetam (Keppra 500mg Ivpb) 500 mg in 100 mls @ 400 mls/hr IVPB Q12 [facility] Last Admin: 05/22/18 10:08 Dose: 400 mls/hr Lorazepam (Ativan) 1 mg IV Q4 PRN; Protocol PRN Reason: Seizure activity Pantoprazole Sodium (Protonix Inj) 40 mg IVP DAILY [facility] Last Admin: 05/22/18 10:08 Dose: 40 mg - Labs Labs: 05/22/18 06:45 05/22/18 06:45 PT 15.6 SECONDS (9.4-12.5) H 05/18/18 06:45 INR 1.35 05/18/18 06:45 - Head Exam Head Exam: ATRAUMATIC, NORMAL INSPECTION, NORMOCEPHALIC - Eye Exam Eye Exam: Normal appearance Pupil Exam: NORMAL ACCOMODATION - ENT Exam ENT Exam: Normal Exam - Neck Exam Neck Exam: Full ROM Additional comments: tracheotomy in stoma, patent - Respiratory Exam Respiratory Exam: NORMAL BREATHING PATTERN Assessment and Plan (1) Dysphagia Status: Acute (2) Oropharyngeal mass Status: Acute (3) Laryngeal cancer Status: Acute (4) Aphonia Status: Acute - Assessment and Plan (Free Text) Plan: pt to have PEG, await bx and social work input
--- NOTE | 2018-05-22 12:46 | CP.PCM.PN ---
Subjective - Date & Time of Evaluation Date of Evaluation: 05/22/18 Time of Evaluation: 12:35 - Subjective Subjective: General Surgery - Dr. Rivas PT S&E. DC. Plan for open gastrostomy tube discussed with pt and god- daughter at bedside. No fever/chills, SOB/Chest pain. Objective - Vital Signs/Intake and Output Vital Signs (last 24 hours): Temp Pulse Resp BP Pulse Ox 98.7 F 81 20 111/64 99 05/22/18 12:00 05/22/18 12:00 05/22/18 12:00 05/22/18 12:00 05/22/18 06:00 Intake and Output: 05/22/18 05/22/18 06:59 18:59 Intake Total 670 Output Total 450 Balance 220 - Medications Medications: Current Medications Acetaminophen (Tylenol 650 Mg Supp) 650 mg RC Q6H PRN PRN Reason: Fever >100.4 F Last Admin: 05/19/18 17:21 Dose: 650 mg Albuterol/Ipratropium (Duoneb 3 Mg/0.5 Mg (3 Ml) Ud) 3 ml IH TIDRESP [facility] Last Admin: 05/22/18 08:41 Dose: 3 ml Heparin Sodium (Porcine) (Heparin) 5,000 units SC Q8 [facility] PRN Reason: Protocol Last Admin: 05/22/18 04:59 Dose: 5,000 units Phenytoin 100 mg/ Sodium (Chloride) 52 mls @ 104 mls/hr IVPB Q8 [facility] Last Admin: 05/22/18 04:59 Dose: 104 mls/hr Amino Acids (Clinimix 4.25/5 % (1000 Ml)) 1,000 mls @ 42 mls/hr IV .[id number] [facility] Last Admin: 05/21/18 19:14 Dose: 42 mls/hr Levetiracetam (Keppra 500mg Ivpb) 500 mg in 100 mls @ 400 mls/hr IVPB Q12 [facility] Last Admin: 05/22/18 10:08 Dose: 400 mls/hr Lorazepam (Ativan) 1 mg IV Q4 PRN; Protocol PRN Reason: Seizure activity Pantoprazole Sodium (Protonix Inj) 40 mg IVP DAILY [facility] Last Admin: 05/22/18 10:08 Dose: 40 mg - Labs Labs: 05/22/18 06:45 05/22/18 06:45 PT 15.6 SECONDS (9.4-12.5) H 05/18/18 06:45 INR 1.35 05/18/18 06:45 - Constitutional Appears: No Acute Distress - Head Exam Head Exam: ATRAUMATIC, NORMAL INSPECTION, NORMOCEPHALIC - Eye Exam Eye Exam: Normal appearance - Respiratory Exam Respiratory Exam: NORMAL BREATHING PATTERN. absent: Respiratory Distress Additional comments: trach - Cardiovascular Exam Cardiovascular Exam: REGULAR RHYTHM - GI/Abdominal Exam GI & Abdominal Exam: Soft. 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 Rob Hernadez PGY4
--- NOTE | 2018-05-22 14:29 | CP.PCM.PN ---
<Ronald Vergara - Last Filed: 05/22/18 14:39> Subjective - Date & Time of Evaluation Date of Evaluation: 05/22/18 Time of Evaluation: 14:28 - Subjective Subjective: GI Fellow PGY4 Patient doing well. no complaints. no acute overnight events. G-tube tomorrow per surgery. Objective - Vital Signs/Intake and Output Vital Signs (last 24 hours): Temp Pulse Resp BP Pulse Ox 98.7 F 81 20 111/64 99 05/22/18 12:00 05/22/18 12:00 05/22/18 12:00 05/22/18 12:00 05/22/18 06:00 Intake and Output: 05/22/18 05/22/18 06:59 18:59 Intake Total 670 Output Total 450 Balance 220 - Medications Medications: Current Medications Acetaminophen (Tylenol 650 Mg Supp) 650 mg RC Q6H PRN PRN Reason: Fever >100.4 F Last Admin: 05/19/18 17:21 Dose: 650 mg Albuterol/Ipratropium (Duoneb 3 Mg/0.5 Mg (3 Ml) Ud) 3 ml IH TIDRESP [facility] Last Admin: 05/22/18 13:31 Dose: 3 ml Heparin Sodium (Porcine) (Heparin) 5,000 units SC Q8 [facility] PRN Reason: Protocol Last Admin: 05/22/18 13:36 Dose: 5,000 units Phenytoin 100 mg/ Sodium (Chloride) 52 mls @ 104 mls/hr IVPB Q8 [facility] Last Admin: 05/22/18 13:42 Dose: 104 mls/hr Amino Acids (Clinimix 4.25/5 % (1000 Ml)) 1,000 mls @ 42 mls/hr IV .[id number] [facility] Last Admin: 05/21/18 19:14 Dose: 42 mls/hr Levetiracetam (Keppra 500mg Ivpb) 500 mg in 100 mls @ 400 mls/hr IVPB Q12 [facility] Last Admin: 05/22/18 10:08 Dose: 400 mls/hr Lorazepam (Ativan) 1 mg IV Q4 PRN; Protocol PRN Reason: Seizure activity Pantoprazole Sodium (Protonix Inj) 40 mg IVP DAILY [facility] Last Admin: 05/22/18 10:08 Dose: 40 mg - Labs Labs: 05/22/18 06:45 05/22/18 06:45 PT 15.6 SECONDS (9.4-12.5) H 05/18/18 06:45 INR 1.35 05/18/18 06:45 - Constitutional Appears: No Acute Distress - Head Exam Head Exam: NORMAL INSPECTION - Eye Exam Eye Exam: Normal appearance - Respiratory Exam Respiratory Exam: Clear to Ausculation Bilateral, NORMAL BREATHING PATTERN - Cardiovascular Exam Cardiovascular Exam: REGULAR RHYTHM - GI/Abdominal Exam GI & Abdominal Exam: Soft, Normal Bowel Sounds. absent: Tenderness - Extremities Exam Extremities Exam: Normal Inspection - Neurological Exam Neurological Exam: Alert, Awake - Psychiatric Exam Psychiatric exam: Normal Affect, Normal Mood - Skin Skin Exam: Normal Color Assessment and Plan - Assessment and Plan (Free Text) Assessment: Patient is a 73yo male with PMHx significant for laryngeal cancer s/p tracheostomy who presents with 3 days of dysphagia #Obstructing laryngopharynx mass #Dysphagia #Seizure disorder #COPD Plan: -CT neck reviewed. -EGD 05/20 with laryngopharynx mass obstructing esophagus. -ENT plan noted -Surgical plan for G-tube noted -Path pending <Juaquin Jones V - Last Filed: 05/23/18 22:41> Objective - Vital Signs/Intake and Output Vital Signs (last 24 hours): Temp Pulse Resp BP Pulse Ox 98 F 106 H 20 131/80 98 05/23/18 18:00 05/23/18 18:00 05/23/18 18:00 05/23/18 18:00 05/23/18 14:35 Intake and Output: 05/23/18 05/24/18 18:59 06:59 Intake Total 670 956 Balance 670 956 - Medications Medications: Current Medications Acetaminophen (Tylenol 650 Mg Supp) 650 mg RC Q4 PRN PRN Reason: mild pain (1-3);Fever >100.4 F Albuterol/Ipratropium (Duoneb 3 Mg/0.5 Mg (3 Ml) Ud) 3 ml IH TIDRESP [facility] Last Admin: 05/23/18 19:52 Dose: 3 ml Fentanyl (Fentanyl) 25 mcg IV Q10M PRN PRN Reason: Pain, moderate (4-7) Heparin Sodium (Porcine) (Heparin) 5,000 units SC Q8 [facility] PRN Reason: Protocol Last Admin: 05/22/18 21:17 Dose: 5,000 units Phenytoin 100 mg/ Sodium (Chloride) 52 mls @ 104 mls/hr IVPB Q8 [facility] Last Admin: 05/23/18 22:09 Dose: 104 mls/hr Amino Acids (Clinimix 4.25/5 % (1000 Ml)) 1,000 mls @ 42 mls/hr IV .[id number] [facility] Last Admin: 05/23/18 18:00 Dose: 42 mls/hr Levetiracetam (Keppra 500mg Ivpb) 500 mg in 100 mls @ 400 mls/hr IVPB Q12 [facility] Last Admin: 05/23/18 22:09 Dose: 400 mls/hr Sodium Chloride (Sodium Chloride 0.9%) 1,000 mls @ 100 mls/hr IV .Q10H [facility] Last Admin: 05/23/18 16:00 Dose: 100 mls/hr Lorazepam (Ativan) 1 mg IV Q4 PRN; Protocol PRN Reason: Seizure activity Last Admin: 05/23/18 01:28 Dose: 1 mg Morphine Sulfate (Morphine) 2 mg IVP Q4H PRN PRN Reason: Pain, moderate (4-7) Morphine Sulfate (Morphine) 4 mg IVP Q4H PRN PRN Reason: Pain, severe (8-10) Last Admin: 05/23/18 16:32 Dose: 4 mg Pantoprazole Sodium (Protonix Inj) 40 mg IVP DAILY [facility] Last Admin: 05/23/18 09:29 Dose: 40 mg - Labs Labs: 05/23/18 07:10 05/23/18 07:10 PT 15.6 SECONDS (9.4-12.5) H 05/18/18 06:45 INR 1.35 05/18/18 06:45 Attending/Attestation - Attestation I have personally seen and examined this patient.: Yes I have fully participated in the care of the patient.: Yes I have reviewed all pertinent clinical information, including history, physical exam and plan: Yes Notes (Text): This is an addendum to GI progress report dictated by the GI Fellow.The patient was seen and examined earlier. Medical records, lab studies, imagings were reviewed. Last 24 hours events reviewed. Agreed with the above treatment plan as outlined in GI Fellow 's notes with the addition of the following No abdominal pain spitting up of saliva Abdominal soft non tender Follow path surgical gastrostomy 05/23/18 22:39
[2018-05-22] MEDS ORDERED: Potassium Chloride 20 MEQ in Dextrose 5%/0.45% NS 1,000 ML IV SCH (16:30)
[2018-05-22] MEDS: Amino/Dext 4.25/5 1,000 ML IV SCH (18:01)
--- NOTE | 2018-05-22 21:08 | CP.PCM.PN ---
<Ochoa Matute - Last Filed: 05/22/18 21:24> Subjective - Date & Time of Evaluation Date of Evaluation: 05/22/18 Time of Evaluation: 08:00 - Subjective Subjective: Pt seen and examined this morning at bedside. Pt had his procedure yesterday. Pt reports that his secretions are getting better. No new complaints. Objective - Vital Signs/Intake and Output Vital Signs (last 24 hours): Temp Pulse Resp BP Pulse Ox 99.3 F 84 20 123/70 99 05/22/18 18:00 05/22/18 18:00 05/22/18 19:00 05/22/18 18:00 05/22/18 08:00 Intake and Output: 05/22/18 05/23/18 18:59 06:59 Intake Total 854 Output Total 400 Balance 454 - Medications Medications: Current Medications Acetaminophen (Tylenol 650 Mg Supp) 650 mg RC Q6H PRN PRN Reason: Fever >100.4 F Last Admin: 05/19/18 17:21 Dose: 650 mg Albuterol/Ipratropium (Duoneb 3 Mg/0.5 Mg (3 Ml) Ud) 3 ml IH TIDRESP [facility] Last Admin: 05/22/18 20:18 Dose: 3 ml Heparin Sodium (Porcine) (Heparin) 5,000 units SC Q8 [facility] PRN Reason: Protocol Last Admin: 05/22/18 13:36 Dose: 5,000 units Phenytoin 100 mg/ Sodium (Chloride) 52 mls @ 104 mls/hr IVPB Q8 [facility] Last Admin: 05/22/18 13:42 Dose: 104 mls/hr Amino Acids (Clinimix 4.25/5 % (1000 Ml)) 1,000 mls @ 42 mls/hr IV .[id number] [facility] Last Admin: 05/22/18 18:01 Dose: 42 mls/hr Levetiracetam (Keppra 500mg Ivpb) 500 mg in 100 mls @ 400 mls/hr IVPB Q12 [facility] Last Admin: 05/22/18 10:08 Dose: 400 mls/hr Lorazepam (Ativan) 1 mg IV Q4 PRN; Protocol PRN Reason: Seizure activity Pantoprazole Sodium (Protonix Inj) 40 mg IVP DAILY [facility] Last Admin: 09/12/18 10:08 Dose: 40 mg - Labs Labs: 05/22/18 06:45 05/22/18 06:45 PT 15.6 SECONDS (9.4-12.5) H 05/18/18 06:45 INR 1.35 05/18/18 06:45 - Constitutional Appears: In Acute Distress - Head Exam Head Exam: ATRAUMATIC - ENT Exam ENT Exam: Mucous Membranes Moist - Respiratory Exam Respiratory Exam: NORMAL BREATHING PATTERN. absent: Accessory Muscle Use - Cardiovascular Exam Cardiovascular Exam: RRR - GI/Abdominal Exam GI & Abdominal Exam: Soft, Normal Bowel Sounds - Extremities Exam Extremities Exam: Full ROM - Neurological Exam Neurological Exam: Alert, Awake, Oriented x3 - Psychiatric Exam Psychiatric exam: Normal Affect, Normal Mood - Skin Skin Exam: Dry, Intact, Warm Assessment and Plan - Assessment and Plan (Free Text) Assessment: Pt is a 73 M with PMH of seizure and throat cancer (Dx 2013) s/p tracheostomy who presented with a 3 day history of dysphagia and dysphonia. Patient had Head/ Neck CT showing oropharyngeal mass concerning for malignancy. GI, ENT, General surgery are consulted and following patient. Plan: Dysphagia 2/2 oropharyngeal mass - GI Karen, EGD performed yesterday, biopsy taken during procedure - Heme/Onc Ibrahima, follow up after biopsy, possibly out pt immunotherapy - Surgery Rob, attempted PEG was unsuccessful, planning to place a G-Tube - Pallative care - NPO, continue O2, aspiration precautions, suction prn, midline PICC - Imaging showing large soft tissue mass density R glottic area s/p total laryngectomy, suspicious of mets - CTAP: negative - continue PPN, will renew order as needed - keep head of bed elevated - daily weights - Pt eval Hx seizure - keppra 500mg IVPB Q12 - dilantin 100mg IVPB Q8 - ativan 1mg Q4 prn Hx COPD - Duonebs 3ml TID - Continue to monitor Ppx - Protonix - Heparin Pt seen, examined, assessment, plan discussed with Dr Lizzy Matute PGY1 Internal Medicine Resident <Ashley Ball - Last Filed: 05/23/18 06:51> Objective - Vital Signs/Intake and Output Vital Signs (last 24 hours): Temp Pulse Resp BP Pulse Ox 99.1 F 87 20 107/62 97 05/22/18 23:25 05/23/18 02:00 05/22/18 23:25 05/22/18 23:25 05/22/18 23:25 Intake and Output: 05/22/18 05/23/18 18:59 06:59 Intake Total 854 0 Output Total 400 300 Balance 454 -300 - Medications Medications: Current Medications Acetaminophen (Tylenol 650 Mg Supp) 650 mg RC Q6H PRN PRN Reason: Fever >100.4 F Last Admin: 05/19/18 17:21 Dose: 650 mg Albuterol/Ipratropium (Duoneb 3 Mg/0.5 Mg (3 Ml) Ud) 3 ml IH TIDRESP [facility] Last Admin: 05/22/18 20:18 Dose: 3 ml Heparin Sodium (Porcine) (Heparin) 5,000 units SC Q8 [facility] PRN Reason: Protocol Last Admin: 05/22/18 21:17 Dose: 5,000 units Phenytoin 100 mg/ Sodium (Chloride) 52 mls @ 104 mls/hr IVPB Q8 [facility] Last Admin: 05/23/18 05:19 Dose: 104 mls/hr Amino Acids (Clinimix 4.25/5 % (1000 Ml)) 1,000 mls @ 42 mls/hr IV .[id number] [facility] Last Admin: 05/22/18 18:01 Dose: 42 mls/hr Levetiracetam (Keppra 500mg Ivpb) 500 mg in 100 mls @ 400 mls/hr IVPB Q12 [facility] Last Admin: 05/22/18 21:18 Dose: 400 mls/hr Lorazepam (Ativan) 1 mg IV Q4 PRN; Protocol PRN Reason: Seizure activity Last Admin: 05/23/18 01:28 Dose: 1 mg Pantoprazole Sodium (Protonix Inj) 40 mg IVP DAILY [facility] Last Admin: 05/22/18 10:08 Dose: 40 mg - Labs Labs: 05/22/18 06:45 05/22/18 06:45 PT 15.6 SECONDS (9.4-12.5) H 05/18/18 06:45 INR 1.35 05/18/18 06:45 Attending/Attestation - Attestation I have personally seen and examined this patient.: Yes I have fully participated in the care of the patient.: Yes I have reviewed all pertinent clinical information, including history, physical exam and plan: Yes Notes (Text): 05/22/18 73 year old male with past medical history of seizure and throat cancer s/p tracheostomy who presented with complaint of dysphagia. CT neck showed oropharyngeal mass concerning for malignancy. He is NPO on PPN. EGD was earlier as above. Biopsy was taken and pending pathology. Surgery is following for G-tube possibly tomorrow. CT abd/pelvis was reviewed. ENT and hematology/oncology are following as well. Patient is on dilantin and keppra for history of seizure. Ashley Ball MD Hospitalist.
[2018-05-23 07:23] LABS: BASO # 0.02 K/mm3 (0.0-2.0); BASO % 0.2 % (0.0-3.0); EOS # 0.2 (0.0-0.7); EOS % 1.7 % (1.5-5.0); GRAN # 7.06 (1.4-6.5); GRAN % 77.8 % (50.0-68.0); HEMOGLOBIN 9.8 g/dL (14.0-18.0); LYMPH # 1.1 (1.2-3.4); MEAN CELL VOLUME 88.2 fl (80.0-105.0); MEAN CORPUSCULAR HEMOGLOBIN 28.8 pg (25.0-35.0); MEAN CORPUSCULAR HGB CONC 32.7 g/dl (31.0-37.0); MEAN PLATELET VOLUME 10.1 fl (7.0-11.0); MONO # 0.8 (0.1-0.6); MONO % 8.3 % (1.0-6.0); RBC 3.4 10^6/uL (3.5-6.1); RED CELL DISTRIBUTION WIDTH 13.3 % (11.5-14.5); WHITE BLOOD COUNT 9.1 10^3/ul (4.5-11.0)
[2018-05-23 07:50] LABS: TROPONIN I 0.02 ng/mL
[2018-05-23] MEDS: Albuterol-Ipratrop 3 mg / 0.5 (3 ml) UD IH SCH ×3 (07:50→19:52)
[2018-05-23 09:01] LABS: ALB/GLOB RATIO 0.9 (1.1-1.8); ALBUMIN 3.4 g/dL (3.0-4.8); ALT/SGPT 34 U/L (7-56); AST/SGOT 58 U/L (17-59); BLOOD UREA NITROGEN 12 mg/dL (7-21); CALCIUM 9.6 mg/dL (8.4-10.5); GFR NON-AFRICAN AMERICAN > 60
[2018-05-23 09:07] LABS: TROPONIN I 0.02 ng/mL
[2018-05-23] MEDS: levETIRAcetam 500mg IVPB 500 MG/100 ML BAG IVPB SCH ×2 (09:29→22:09)
--- NOTE | 2018-05-23 09:32 | CP.PCM.PN ---
<Ronald Vergara - Last Filed: 05/23/18 09:29> Subjective - Date & Time of Evaluation Date of Evaluation: 05/23/18 Time of Evaluation: 09:29 - Subjective Subjective: GI Fellow PGY4, Surgery today. No acute overnight events. Path returned today. Necrotic tissue with atypical cells suspicious for SCC. Objective - Vital Signs/Intake and Output Vital Signs (last 24 hours): Temp Pulse Resp BP Pulse Ox 98.5 F 83 18 135/81 100 05/23/18 06:00 05/23/18 06:00 05/23/18 06:00 05/23/18 06:00 05/23/18 06:00 Intake and Output: 05/23/18 05/23/18 06:59 18:59 Intake Total 0 670 Output Total 300 Balance -300 670 - Medications Medications: Current Medications Acetaminophen (Tylenol 650 Mg Supp) 650 mg RC Q6H PRN PRN Reason: Fever >100.4 F Last Admin: 05/19/18 17:21 Dose: 650 mg Albuterol/Ipratropium (Duoneb 3 Mg/0.5 Mg (3 Ml) Ud) 3 ml IH TIDRESP [facility] Last Admin: 05/23/18 07:50 Dose: 3 ml Heparin Sodium (Porcine) (Heparin) 5,000 units SC Q8 [facility] PRN Reason: Protocol Last Admin: 05/22/18 21:17 Dose: 5,000 units Phenytoin 100 mg/ Sodium (Chloride) 52 mls @ 104 mls/hr IVPB Q8 [facility] Last Admin: 05/23/18 05:19 Dose: 104 mls/hr Amino Acids (Clinimix 4.25/5 % (1000 Ml)) 1,000 mls @ 42 mls/hr IV .[id number] [facility] Last Admin: 05/22/18 18:01 Dose: 42 mls/hr Levetiracetam (Keppra 500mg Ivpb) 500 mg in 100 mls @ 400 mls/hr IVPB Q12 [facility] Last Admin: 05/22/18 21:18 Dose: 400 mls/hr Lorazepam (Ativan) 1 mg IV Q4 PRN; Protocol PRN Reason: Seizure activity Last Admin: 05/23/18 01:28 Dose: 1 mg Pantoprazole Sodium (Protonix Inj) 40 mg IVP DAILY [facility] Last Admin: 05/22/18 10:08 Dose: 40 mg - Labs Labs: 05/23/18 07:10 05/23/18 07:10 PT 15.6 SECONDS (9.4-12.5) H 05/18/18 06:45 INR 1.35 05/18/18 06:45 - Constitutional Appears: Non-toxic, No Acute Distress, Cachectic, Chronically Ill - Eye Exam Eye Exam: Normal appearance - ENT Exam ENT Exam: Mucous Membranes Moist - Respiratory Exam Respiratory Exam: Clear to Ausculation Bilateral, NORMAL BREATHING PATTERN - Cardiovascular Exam Cardiovascular Exam: REGULAR RHYTHM - GI/Abdominal Exam GI & Abdominal Exam: Soft, Normal Bowel Sounds. absent: Tenderness - Extremities Exam Extremities Exam: Normal Inspection - Neurological Exam Neurological Exam: Alert, Awake, Oriented x3 - Psychiatric Exam Psychiatric exam: Normal Affect, Normal Mood - Skin Skin Exam: Dry, Normal Color Assessment and Plan - Assessment and Plan (Free Text) Assessment: Patient is a 73yo male with PMHx significant for laryngeal cancer s/p tracheostomy who presents with 3 days of dysphagia #Obstructing laryngopharynx mass #Dysphagia #Seizure disorder #COPD Plan: -CT neck reviewed. -EGD 05/20 with laryngopharynx mass obstructing esophagus. -ENT plan noted -Surgical plan for G-tube noted -Path shows necrotic tissue, atypical cells suspicious for SCC. -Signing off. Please call as needed. <Juaquin Jones V - Last Filed: 05/23/18 22:45> Objective - Vital Signs/Intake and Output Vital Signs (last 24 hours): Temp Pulse Resp BP Pulse Ox 98 F 106 H 20 131/80 98 05/23/18 18:00 05/23/18 18:00 05/23/18 18:00 05/23/18 18:00 05/23/18 14:35 Intake and Output: 05/23/18 05/24/18 18:59 06:59 Intake Total 670 956 Balance 670 956 - Medications Medications: Current Medications Acetaminophen (Tylenol 650 Mg Supp) 650 mg RC Q4 PRN PRN Reason: mild pain (1-3);Fever >100.4 F Albuterol/Ipratropium (Duoneb 3 Mg/0.5 Mg (3 Ml) Ud) 3 ml IH TIDRESP [facility] Last Admin: 05/23/18 19:52 Dose: 3 ml Fentanyl (Fentanyl) 25 mcg IV Q10M PRN PRN Reason: Pain, moderate (4-7) Heparin Sodium (Porcine) (Heparin) 5,000 units SC Q8 [facility] PRN Reason: Protocol Last Admin: 05/22/18 21:17 Dose: 5,000 units Phenytoin 100 mg/ Sodium (Chloride) 52 mls @ 104 mls/hr IVPB Q8 [facility] Last Admin: 05/23/18 22:09 Dose: 104 mls/hr Amino Acids (Clinimix 4.25/5 % (1000 Ml)) 1,000 mls @ 42 mls/hr IV .[id number] [facility] Last Admin: 05/23/18 18:00 Dose: 42 mls/hr Levetiracetam (Keppra 500mg Ivpb) 500 mg in 100 mls @ 400 mls/hr IVPB Q12 [facility] Last Admin: 05/23/18 22:09 Dose: 400 mls/hr Sodium Chloride (Sodium Chloride 0.9%) 1,000 mls @ 100 mls/hr IV .Q10H [facility] Last Admin: 05/23/18 16:00 Dose: 100 mls/hr Lorazepam (Ativan) 1 mg IV Q4 PRN; Protocol PRN Reason: Seizure activity Last Admin: 05/23/18 01:28 Dose: 1 mg Morphine Sulfate (Morphine) 2 mg IVP Q4H PRN PRN Reason: Pain, moderate (4-7) Morphine Sulfate (Morphine) 4 mg IVP Q4H PRN PRN Reason: Pain, severe (8-10) Last Admin: 05/23/18 16:32 Dose: 4 mg Pantoprazole Sodium (Protonix Inj) 40 mg IVP DAILY [facility] Last Admin: 05/23/18 09:29 Dose: 40 mg - Labs Labs: 05/23/18 07:10 05/23/18 07:10 PT 15.6 SECONDS (9.4-12.5) H 05/18/18 06:45 INR 1.35 05/18/18 06:45 Attending/Attestation - Attestation I have personally seen and examined this patient.: Yes I have fully participated in the care of the patient.: Yes I have reviewed all pertinent clinical information, including history, physical exam and plan: Yes Notes (Text): This is an addendum to GI progress report dictated by the GI Fellow.The patient was seen and examined earlier. Medical records, lab studies, imagings were reviewed. Last 24 hours events reviewed. Agreed with the above treatment plan as outlined in GI Fellow 's notes with the addition of the following PATH report was reviewed path report neurotic tissue with suspicious malignanat cells recommend surgical gastrostomy for feeding ENT followup will sign off and reconsider as needed 05/23/18 22:43
--- NOTE | 2018-05-23 09:44 | CARD ---
APPROVED REPORT Date of service: 05/23/2018 EKG Measurement Heart [id number] <Conclusion> Sinus rhythm with 1st degree AV block Otherwise normal ECG
[2018-05-23] MEDS ORDERED: Bupivacaine 0.5% Inj(30mL) ONE (11:34)
[2018-05-23] MEDS ORDERED: Propofol 10 mg/ml Inj (20 ML) ONE (11:57)
[2018-05-23] MEDS ORDERED: Midazolam 2 MG/2 ML VIAL ONE (11:57)
[2018-05-23] MEDS ORDERED: Etomidate 20 mg/10ml Inj IV ONE (11:58)
[2018-05-23] MEDS ORDERED: ePHEDrine 50 mg/ml Inj ONE (12:02)
[2018-05-23] MEDS ORDERED: Bupivacaine 0.5% Inj(30mL) IJ ONE ×2 (12:20)
--- NOTE | 2018-05-23 13:44 | PCM.SURG1 ---
Surgeon's Initial Post Op Note - Surgeon's Notes Surgeon: Dr. Rivas Ppap Coordinator: Dr. Hernadez PGY4, Dr. Razo PGY3 Type of Anesthesia: General Endo Pre-Operative Diagnosis: Dysphagia Operative Findings: The stomach was adhesed to the abdominal wall Post-Operative Diagnosis: Dysphagia Operation Performed: Stam Gastrostomy Specimen/Specimens Removed: None Estimated Blood Loss: EBL {In ML}: 5 Blood Products Given: N/A Drains Used: No Drains Post-Op Condition: Good Date of Surgery/Procedure: 05/23/18 Time of Surgery/Procedure: 13:44
[2018-05-23] MEDS ORDERED: Oxycodone/Acetaminophen 5/325 mg Tab PO PRN (13:45)
[2018-05-23] MEDS ORDERED: Sodium Chloride 0.9% 1,000 ML IV SCH (13:45)
--- NOTE | 2018-05-23 15:05 | CP.PCM.PN ---
Subjective - Date & Time of Evaluation Date of Evaluation: 05/23/18 Time of Evaluation: 15:01 - Subjective Subjective: Heme/Onc Progress Note for Dr. Alexandra -- Jose Guerra DO PGY2 Patient seen and examined at bedside. No acute overnight events. Patient to have open g-tube placed today. Patient offers no other complaints at this time. Patient CP, SOB, n/v/d, abdominal pain, fever, chills, STARR, or dizziness. Objective - Vital Signs/Intake and Output Vital Signs (last 24 hours): Temp Pulse Resp BP Pulse Ox 98.2 F 93 H 20 155/81 H 98 05/23/18 14:35 05/23/18 14:35 05/23/18 14:35 05/23/18 14:35 05/23/18 14:35 Intake and Output: 05/23/18 05/23/18 06:59 18:59 Intake Total 0 670 Output Total 300 Balance -300 670 - Medications Medications: Current Medications Acetaminophen (Tylenol 650 Mg Supp) 650 mg RC Q6H PRN PRN Reason: Fever >100.4 F Last Admin: 05/19/18 17:21 Dose: 650 mg Albuterol/Ipratropium (Duoneb 3 Mg/0.5 Mg (3 Ml) Ud) 3 ml IH TIDRESP [facility] Last Admin: 05/23/18 07:50 Dose: 3 ml Fentanyl (Fentanyl) 25 mcg IV Q10M PRN PRN Reason: Pain, moderate (4-7) Heparin Sodium (Porcine) (Heparin) 5,000 units SC Q8 [facility] PRN Reason: Protocol Last Admin: 05/22/18 21:17 Dose: 5,000 units Phenytoin 100 mg/ Sodium (Chloride) 52 mls @ 104 mls/hr IVPB Q8 [facility] Last Admin: 05/23/18 05:19 Dose: 104 mls/hr Amino Acids (Clinimix 4.25/5 % (1000 Ml)) 1,000 mls @ 42 mls/hr IV .[id number] [facility] Last Admin: 05/22/18 18:01 Dose: 42 mls/hr Levetiracetam (Keppra 500mg Ivpb) 500 mg in 100 mls @ 400 mls/hr IVPB Q12 [facility] Last Admin: 05/23/18 09:29 Dose: 400 mls/hr Sodium Chloride (Sodium Chloride 0.9%) 1,000 mls @ 100 mls/hr IV .Q10H [facility] Sodium Chloride (Sodium Chloride 0.9%) 1,000 mls @ 75 mls/hr IV .[id number] [facility] Stop: 05/23/18 15:46 Lorazepam (Ativan) 1 mg IV Q4 PRN; Protocol PRN Reason: Seizure activity Last Admin: 05/23/18 01:28 Dose: 1 mg Oxycodone/Acetaminophen (Percocet 5/325 Mg Tab) 1 tab PO Q4H PRN PRN Reason: Pain, moderate (4-7) Stop: 05/26/18 13:46 Pantoprazole Sodium (Protonix Inj) 40 mg IVP DAILY [facility] Last Admin: 05/23/18 09:29 Dose: 40 mg - Labs Labs: 05/23/18 07:10 05/23/18 07:10 PT 15.6 SECONDS (9.4-12.5) H 05/18/18 06:45 INR 1.35 05/18/18 06:45 - Constitutional Appears: No Acute Distress - Head Exam Head Exam: NORMAL INSPECTION - Eye Exam Eye Exam: Normal appearance - ENT Exam ENT Exam: Mucous Membranes Moist - Neck Exam Additional comments: tracheostomy in place - Respiratory Exam Respiratory Exam: Clear to Ausculation Bilateral. absent: Rales, Rhonchi, Wheezes - Cardiovascular Exam Cardiovascular Exam: RRR, +S1, +S2. absent: Gallop, Rubs, Murmur - GI/Abdominal Exam GI & Abdominal Exam: Soft. 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 Biopsy of mass showed highly atypical cells suspicious for SCC. Plan: - Recommend outpatient PET/CT - Biopsy of mass showed highly atypical cells suspicious for SCC - Patient to undergo open g-tube placemnt today - Will likely require outpatient immunotherapy - Further recs per GI, ENT, surgery, and primary Case reviewed and discussed with attending. Jose Guerra, DO PGY2
[2018-05-23] MEDS ORDERED: Phenytoin 100 mg/2 ml Inj ONE (15:30)
[2018-05-23] MEDS ORDERED: oxyCODONE 5 mg Immediate Release Tab PO PRN (15:33)
[2018-05-23] MEDS ORDERED: oxyCODONE 10 mg Immediate Release Tab PO PRN (15:33)
[2018-05-23] MEDS ORDERED: Morphine 2 mg/ml ISec IVP PRN (15:34)
[2018-05-23] MEDS: Sodium Chloride 0.9% 1,000 ML IV SCH ×2 (16:00→23:13)
[2018-05-23] MEDS: Morphine 4 mg/ml ISec IVP PRN (16:32)
[2018-05-23] MEDS: Amino/Dext 4.25/5 1,000 ML IV SCH (18:00)
--- NOTE | 2018-05-23 20:44 | CP.PCM.PN ---
<Ochoa Matute - Last Filed: 05/23/18 20:54> Subjective - Date & Time of Evaluation Date of Evaluation: 05/23/18 Time of Evaluation: 07:00 - Subjective Subjective: Pt seen and examined this morning. Pt denies chest pain, SOB or any other new complaints. Objective - Vital Signs/Intake and Output Vital Signs (last 24 hours): Temp Pulse Resp BP Pulse Ox 98 F 106 H 20 131/80 98 05/23/18 18:00 05/23/18 18:00 05/23/18 18:00 05/23/18 18:00 05/23/18 14:35 Intake and Output: 05/23/18 05/24/18 18:59 06:59 Intake Total 670 956 Balance 670 956 - Medications Medications: Current Medications Acetaminophen (Tylenol 650 Mg Supp) 650 mg RC Q4 PRN PRN Reason: mild pain (1-3);Fever >100.4 F Albuterol/Ipratropium (Duoneb 3 Mg/0.5 Mg (3 Ml) Ud) 3 ml IH TIDRESP [facility] Last Admin: 05/23/18 19:52 Dose: 3 ml Fentanyl (Fentanyl) 25 mcg IV Q10M PRN PRN Reason: Pain, moderate (4-7) Heparin Sodium (Porcine) (Heparin) 5,000 units SC Q8 [facility] PRN Reason: Protocol Last Admin: 05/22/18 21:17 Dose: 5,000 units Phenytoin 100 mg/ Sodium (Chloride) 52 mls @ 104 mls/hr IVPB Q8 [facility] Last Admin: 05/23/18 15:30 Dose: 104 mls/hr Amino Acids (Clinimix 4.25/5 % (1000 Ml)) 1,000 mls @ 42 mls/hr IV .[id number] [facility] Last Admin: 05/23/18 18:00 Dose: 42 mls/hr Levetiracetam (Keppra 500mg Ivpb) 500 mg in 100 mls @ 400 mls/hr IVPB Q12 [facility] Last Admin: 05/23/18 09:29 Dose: 400 mls/hr Sodium Chloride (Sodium Chloride 0.9%) 1,000 mls @ 100 mls/hr IV .Q10H [facility] Last Admin: 05/23/18 16:00 Dose: 100 mls/hr Lorazepam (Ativan) 1 mg IV Q4 PRN; Protocol PRN Reason: Seizure activity Last Admin: 05/23/18 01:28 Dose: 1 mg Morphine Sulfate (Morphine) 2 mg IVP Q4H PRN PRN Reason: Pain, moderate (4-7) Morphine Sulfate (Morphine) 4 mg IVP Q4H PRN PRN Reason: Pain, severe (8-10) Last Admin: 05/23/18 16:32 Dose: 4 mg Pantoprazole Sodium (Protonix Inj) 40 mg IVP DAILY [facility] Last Admin: 05/23/18 09:29 Dose: 40 mg - Labs Labs: 05/23/18 07:10 05/23/18 07:10 PT 15.6 SECONDS (9.4-12.5) H 05/18/18 06:45 INR 1.35 05/18/18 06:45 - Constitutional Appears: No Acute Distress - Head Exam Head Exam: ATRAUMATIC - Eye Exam Eye Exam: EOMI - Cardiovascular Exam Additional comments: tracheostomy in place - GI/Abdominal Exam GI & Abdominal Exam: Soft, Normal Bowel Sounds - Extremities Exam Extremities Exam: Full ROM. absent: Pedal Edema, Tenderness - Neurological Exam Neurological Exam: Alert, Awake, Oriented x3 - Psychiatric Exam Psychiatric exam: Normal Affect, Normal Mood - Skin Skin Exam: Dry, Normal Color, Warm Assessment and Plan - Assessment and Plan (Free Text) Assessment: Pt is a 73 M with PMH of seizure and throat cancer (Dx 2012) s/p tracheostomy who presented with a 3 day history of dysphagia and dysphonia. Patient had Head/ Neck CT showing oropharyngeal mass concerning for malignancy. GI, ENT, General surgery are consulted and following patient. Plan: Dysphagia 2/2 oropharyngeal mass - GI Karen, EGD performed yesterday, biopsy taken during procedure - Heme/Onc Ibrahima,recommend out pt PET/CT, highly atypical cells suspicious for SCC - Surgery Rivas, placed G-Tube today - Imaging showing large soft tissue mass density R glottic area s/p total laryngectomy, suspicious of mets - CTAP: negative - keep head of bed elevated, daily weights, NPO, continue O2, aspiration precautions, suction prn, midline PICC - Pt eval, Pallative care Hx seizure - keppra 500mg IVPB Q12 - dilantin 100mg IVPB Q8 - ativan 1mg Q4 prn Hx COPD - Duonebs 3ml TID - Continue to monitor Ppx - Protonix - Heparin Pt seen, examined, assessment, plan discussed with Dr Lizzy Matute PGY1 Internal Medicine Resident <Ashley Ball - Last Filed: 05/24/18 06:48> Objective - Vital Signs/Intake and Output Vital Signs (last 24 hours): Temp Pulse Resp BP Pulse Ox 98.7 F 92 H 19 119/66 100 05/24/18 06:00 05/24/18 06:00 05/24/18 06:00 05/24/18 06:00 05/24/18 06:00 Intake and Output: 05/23/18 05/24/18 18:59 06:59 Intake Total 670 956 Output Total 350 Balance 670 606 - Medications Medications: Current Medications Acetaminophen (Tylenol 650 Mg Supp) 650 mg RC Q4 PRN PRN Reason: mild pain (1-3);Fever >100.4 F Albuterol/Ipratropium (Duoneb 3 Mg/0.5 Mg (3 Ml) Ud) 3 ml IH TIDRESP [facility] Last Admin: 05/23/18 19:52 Dose: 3 ml Fentanyl (Fentanyl) 25 mcg IV Q10M PRN PRN Reason: Pain, moderate (4-7) Heparin Sodium (Porcine) (Heparin) 5,000 units SC Q8 [facility] PRN Reason: Protocol Last Admin: 05/22/18 21:17 Dose: 5,000 units Phenytoin 100 mg/ Sodium (Chloride) 52 mls @ 104 mls/hr IVPB Q8 [facility] Last Admin: 05/24/18 05:09 Dose: 104 mls/hr Amino Acids (Clinimix 4.25/5 % (1000 Ml)) 1,000 mls @ 42 mls/hr IV .[id number] [facility] Last Admin: 05/23/18 18:00 Dose: 42 mls/hr Levetiracetam (Keppra 500mg Ivpb) 500 mg in 100 mls @ 400 mls/hr IVPB Q12 [facility] Last Admin: 05/23/18 22:09 Dose: 400 mls/hr Sodium Chloride (Sodium Chloride 0.9%) 1,000 mls @ 100 mls/hr IV .Q10H [facility] Last Admin: 05/23/18 23:13 Dose: 100 mls/hr Lorazepam (Ativan) 1 mg IV Q4 PRN; Protocol PRN Reason: Seizure activity Last Admin: 05/23/18 01:28 Dose: 1 mg Morphine Sulfate (Morphine) 2 mg IVP Q4H PRN PRN Reason: Pain, moderate (4-7) Morphine Sulfate (Morphine) 4 mg IVP Q4H PRN PRN Reason: Pain, severe (8-10) Last Admin: 05/24/18 04:46 Dose: 4 mg Pantoprazole Sodium (Protonix Inj) 40 mg IVP DAILY [facility] Last Admin: 05/23/18 09:29 Dose: 40 mg - Labs Labs: 05/23/18 07:10 05/23/18 07:10 PT 15.6 SECONDS (9.4-12.5) H 05/18/18 06:45 INR 1.35 05/18/18 06:45 Attending/Attestation - Attestation I have personally seen and examined this patient.: Yes I have fully participated in the care of the patient.: Yes I have reviewed all pertinent clinical information, including history, physical exam and plan: Yes Notes (Text): 05/23/18 73 year old male with past medical history of seizure and throat cancer s/p tracheostomy who presented with complaint of dysphagia. CT neck showed oropharyngeal mass concerning for malignancy. He is NPO on PPN. Patient was seen by ENT, GI, surgery and hematology / oncology. EGD was done earlier this week as above. Biopsy was done; suspicious for squamous cell carcinoma. Hematology / oncology follow up was appreciated; recommended outpatient PET scan and immunotherapy. Patient is s/p G-tube today; will start feeds possibly tomorrow if okay with GI/ surgery. Patient is on dilantin and keppra for history of seizure. Ashley Ball MD Hospitalist.
[2018-05-24] MEDS: Morphine 4 mg/ml ISec IVP PRN (04:46)
[2018-05-24 07:15] LABS: BASO # 0.01 K/mm3 (0.0-2.0); BASO % 0.1 % (0.0-3.0); EOS # 0.1 (0.0-0.7); EOS % 0.6 % (1.5-5.0); GRAN # 8.77 (1.4-6.5); GRAN % 81.7 % (50.0-68.0); HEMOGLOBIN 9.4 g/dL (14.0-18.0); LYMPH % 9.5 % (22.0-35.0); MEAN CELL VOLUME 87.5 fl (80.0-105.0); MEAN CORPUSCULAR HEMOGLOBIN 28.6 pg (25.0-35.0); MEAN CORPUSCULAR HGB CONC 32.6 g/dl (31.0-37.0); MEAN PLATELET VOLUME 9.9 fl (7.0-11.0); MONO # 0.9 (0.1-0.6); MONO % 8.1 % (1.0-6.0); RBC 3.29 10^6/uL (3.5-6.1); RED CELL DISTRIBUTION WIDTH 13.3 % (11.5-14.5); WHITE BLOOD COUNT 10.7 10^3/ul (4.5-11.0)
[2018-05-24 07:35] LABS: ALB/GLOB RATIO 0.9 (1.1-1.8); ALBUMIN 3.1 g/dL (3.0-4.8); ALT/SGPT 39 U/L (7-56); AST/SGOT 46 U/L (17-59); BLOOD UREA NITROGEN 9 mg/dL (7-21); CALCIUM 8.7 mg/dL (8.4-10.5); GFR NON-AFRICAN AMERICAN > 60
--- NOTE | 2018-05-24 08:16 | CP.PCM.PN ---
Subjective - Date & Time of Evaluation Date of Evaluation: 05/24/18 Time of Evaluation: 08:13 - Subjective Subjective: Surgery Note for Dr Rivas Pt seen and examined at bedside.. Pt reports pain is well controlled with current regimen. Pt denies any acute events overnight, no pains, normal bm no f/ c n/v, cp, sob. Pt will receive tube feeds and advance accordingly. pt agrees with plan. Objective - Vital Signs/Intake and Output Vital Signs (last 24 hours): Temp Pulse Resp BP Pulse Ox 98.7 F 92 H 19 119/66 100 05/24/18 06:00 05/24/18 06:00 05/24/18 06:00 05/24/18 06:00 05/24/18 06:00 Intake and Output: 05/24/18 05/24/18 06:59 18:59 Intake Total 2960 Output Total 350 Balance 2610 - Medications Medications: Current Medications Acetaminophen (Tylenol 650 Mg Supp) 650 mg RC Q4 PRN PRN Reason: mild pain (1-3);Fever >100.4 F Albuterol/Ipratropium (Duoneb 3 Mg/0.5 Mg (3 Ml) Ud) 3 ml IH TIDRESP [facility] Last Admin: 05/23/18 19:52 Dose: 3 ml Fentanyl (Fentanyl) 25 mcg IV Q10M PRN PRN Reason: Pain, moderate (4-7) Heparin Sodium (Porcine) (Heparin) 5,000 units SC Q8 [facility] PRN Reason: Protocol Last Admin: 05/22/18 21:17 Dose: 5,000 units Phenytoin 100 mg/ Sodium (Chloride) 52 mls @ 104 mls/hr IVPB Q8 [facility] Last Admin: 05/24/18 05:09 Dose: 104 mls/hr Amino Acids (Clinimix 4.25/5 % (1000 Ml)) 1,000 mls @ 42 mls/hr IV .[id number] [facility] Last Admin: 05/23/18 18:00 Dose: 42 mls/hr Levetiracetam (Keppra 500mg Ivpb) 500 mg in 100 mls @ 400 mls/hr IVPB Q12 [facility] Last Admin: 05/23/18 22:09 Dose: 400 mls/hr Sodium Chloride (Sodium Chloride 0.9%) 1,000 mls @ 100 mls/hr IV .Q10H [facility] Last Admin: 05/23/18 23:13 Dose: 100 mls/hr Lorazepam (Ativan) 1 mg IV Q4 PRN; Protocol PRN Reason: Seizure activity Last Admin: 05/23/18 01:28 Dose: 1 mg Morphine Sulfate (Morphine) 2 mg IVP Q4H PRN PRN Reason: Pain, moderate (4-7) Morphine Sulfate (Morphine) 4 mg IVP Q4H PRN PRN Reason: Pain, severe (8-10) Last Admin: 05/24/18 04:46 Dose: 4 mg Pantoprazole Sodium (Protonix Inj) 40 mg IVP DAILY [facility] Last Admin: 05/23/18 09:29 Dose: 40 mg - Labs Labs: 05/24/18 07:00 05/24/18 06:30 PT 15.6 SECONDS (9.4-12.5) H 05/18/18 06:45 INR 1.35 05/18/18 06:45 Assessment and Plan - Assessment and Plan (Free Text) Assessment: 73M w/ dysphagia 2/2 recurrent laryngeal ca s/p Stam Gastrostomy post op day 1 - start tube feeds 10ml/hr, advance by 10ml per hr--> goal 50ml/hr - monitor feeds and vitals -continue with medical recs -continue with heme/onc outpt f/u recs -f/u palliative recs will discuss with Dr Rob Garay PGY1
[2018-05-24] MEDS: Albuterol-Ipratrop 3 mg / 0.5 (3 ml) UD IH SCH ×3 (08:19→19:41)
[2018-05-24] MEDS ORDERED: Potassium Chloride 40 mEq/30 ml LIQ UD PO ONE (08:28)
[2018-05-24] MEDS ORDERED: Potassium Chloride 20 mEq ER Tab PO ONE (08:30)
[2018-05-24] MEDS ORDERED: Magnesium Sulfate 1 gm in D5W 1 GM/100 ML BAG IVPB ONE (09:03)
[2018-05-24] MEDS: Sodium Chloride 0.9% 1,000 ML IV SCH ×2 (10:33→23:29)
[2018-05-24] MEDS: levETIRAcetam 500mg IVPB 500 MG/100 ML BAG IVPB SCH ×2 (10:33→22:33)
--- NOTE | 2018-05-24 11:22 | CP.PCM.PN ---
Subjective - Date & Time of Evaluation Date of Evaluation: 05/24/18 Time of Evaluation: 11:12 - Subjective Subjective: Heme/Onc Progress Note for Dr. Alexandra -- Jose Guerra DO PGY2 Patient seen and examined at bedside. No acute overnight events. Patient had open g-tube placed yesterday. Patient states he had some pain post-operatively, but is controlled with medications. Patient denies CP, SOB, n/v/d, abdominal pain, fever, chills STARR, or dizziness. Objective - Vital Signs/Intake and Output Vital Signs (last 24 hours): Temp Pulse Resp BP Pulse Ox 98.7 F 92 H 19 119/66 100 05/24/18 06:00 05/24/18 06:00 05/24/18 06:00 05/24/18 06:00 05/24/18 06:00 Intake and Output: 05/24/18 05/24/18 06:59 18:59 Intake Total 2960 Output Total 350 Balance 2610 - Medications Medications: Current Medications Acetaminophen (Tylenol 650 Mg Supp) 650 mg RC Q4 PRN PRN Reason: mild pain (1-3);Fever >100.4 F Albuterol/Ipratropium (Duoneb 3 Mg/0.5 Mg (3 Ml) Ud) 3 ml IH TIDRESP [facility] Last Admin: 05/24/18 08:19 Dose: 3 ml Fentanyl (Fentanyl) 25 mcg IV Q10M PRN PRN Reason: Pain, moderate (4-7) Heparin Sodium (Porcine) (Heparin) 5,000 units SC Q8 [facility] PRN Reason: Protocol Last Admin: 05/24/18 07:00 Dose: 5,000 units Phenytoin 100 mg/ Sodium (Chloride) 52 mls @ 104 mls/hr IVPB Q8 [facility] Last Admin: 05/24/18 05:09 Dose: 104 mls/hr Amino Acids (Clinimix 4.25/5 % (1000 Ml)) 1,000 mls @ 42 mls/hr IV .[id number] [facility] Last Admin: 05/23/18 18:00 Dose: 42 mls/hr Levetiracetam (Keppra 500mg Ivpb) 500 mg in 100 mls @ 400 mls/hr IVPB Q12 [facility] Last Admin: 09/14/18 10:33 Dose: 400 mls/hr Sodium Chloride (Sodium Chloride 0.9%) 1,000 mls @ 100 mls/hr IV .Q10H [facility] Last Admin: 05/24/18 10:33 Dose: 100 mls/hr Lorazepam (Ativan) 1 mg IV Q4 PRN; Protocol PRN Reason: Seizure activity Last Admin: 05/23/18 01:28 Dose: 1 mg Morphine Sulfate (Morphine) 2 mg IVP Q4H PRN PRN Reason: Pain, moderate (4-7) Morphine Sulfate (Morphine) 4 mg IVP Q4H PRN PRN Reason: Pain, severe (8-10) Last Admin: 05/24/18 04:46 Dose: 4 mg Pantoprazole Sodium (Protonix Inj) 40 mg IVP DAILY [facility] Last Admin: 05/24/18 10:32 Dose: 40 mg - Labs Labs: 05/24/18 07:00 05/24/18 06:30 PT 15.6 SECONDS (9.4-12.5) H 05/18/18 06:45 INR 1.35 05/18/18 06:45 - Constitutional Appears: No Acute Distress - Head Exam Head Exam: NORMAL INSPECTION - Eye Exam Eye Exam: Normal appearance - ENT Exam ENT Exam: Mucous Membranes Moist Additional comments: tracheostomy in place - Respiratory Exam Respiratory Exam: Clear to Ausculation Bilateral. absent: Rales, Rhonchi, Wheezes - Cardiovascular Exam Cardiovascular Exam: RRR. absent: Gallop, Rubs, Murmur - GI/Abdominal Exam GI & Abdominal Exam: Soft. absent: Distended, Guarding, Tenderness, Rebound Additional comments: g-tube in place, no signs of discharge, bleeding, or erythema - Extremities Exam Extremities Exam: Normal Inspection - Back Exam Back Exam: NORMAL INSPECTION - Neurological Exam Neurological Exam: Alert, Awake, Oriented x3 - Psychiatric Exam Psychiatric exam: Normal Affect, Normal Mood - Skin Skin Exam: Dry, Intact, Normal Color, Warm Assessment and Plan - Assessment and Plan (Free Text) Assessment: 73 yo M with 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 Biopsy of mass showed highly atypical cells suspicious for SCC. Plan: - Follow up with oncology on discharge; patient may return to his previous oncologist, Dr. Ede [place], or f/u with Dr. Alexandra - Recommend outpatient PET/CT - Will likely require outpatient immunotherapy - Radiation oncology consulted - Biopsy of mass showed highly atypical cells suspicious for SCC - POD #1 open g-tube - Further recs per GI, ENT, surgery, and primary Case reviewed and discussed with attending. Jose Guerra, DO PGY2
--- NOTE | 2018-05-24 12:58 | CP.PCM.CON ---
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 He was treated by Dr Ede Cleveland and Dr Stevens ( radiation oncology). Unfortunately, he developed a local recurrence in 2017. He underwent a total laryngectomy. Most recently, he presented with a five day history of dysphagia with sore throat. He presented to [facility] for further evaluation. A CT of the neck on May 17, 2018 revealed a large soft tissue mass measuring 5.7 x 3.7 x 3.6cm in the laryngeal region worrisome for recurrence. We were asked to see the patient for our input Review of Systems - Constitutional Constitutional: Weight Loss - EENT Nose/Mouth/Throat: Sore Throat, Neck Mass - Gastrointestinal Gastrointestinal: Dysphagia Past Patient History - Past Medical History & Family History Past Medical History?: Yes - Past Social History Smoking Status: Former Smoker Alcohol: None Home Situation {Lives}: With Family - CARDIAC Hx Cardiac Disorders: No - PULMONARY Hx Respiratory Disorders: Yes Hx Asthma: Yes Hx Bronchitis: Yes Hx Chronic Obstructive Pulmonary Disease (COPD): Yes Hx Emphysema: Yes Hx Sleep Apnea: Yes Other/Comment: Permanent tracheostomy. Patient uses servCigital digital (digital voicebox) to speak due to tracheostomy - NEUROLOGICAL Hx Neurological Disorder: Yes Hx Seizures: Yes (Well controlled with medication) - HEENT Hx HEENT Problems: Yes Other/Comment: blurry vision mild - RENAL Hx Chronic Kidney Disease: No - ENDOCRINE/METABOLIC Hx Diabetes Mellitus Type 2: Yes (DIET CONTROLLED) - HEMATOLOGICAL/ONCOLOGICAL Hx Cancer: Yes (Throat cancer) - INTEGUMENTARY Hx Dermatological Problems: No Other/Comment: Dry skin scattered throughout body - MUSCULOSKELETAL/RHEUMATOLOGICAL Hx Falls: Yes - GASTROINTESTINAL Hx Gastrointestinal Disorders: No - GENITOURINARY/GYNECOLOGICAL Hx Genitourinary Disorders: No - PSYCHIATRIC Hx Psychophysiologic Disorder: No - SURGICAL HISTORY Hx Surgeries: Yes - ANESTHESIA Hx Anesthesia Reactions: No Hx Malignant Hyperthermia: No Meds Allergies/Adverse Reactions: Allergies Allergy/AdvReac Type Severity Reaction Status Date / Time No Known Allergies Allergy Unverified 02/11/15 14:52 - Medications Medications: Current Medications Acetaminophen (Tylenol 650 Mg Supp) 650 mg RC Q4 PRN PRN Reason: mild pain (1-3);Fever >100.4 F Albuterol/Ipratropium (Duoneb 3 Mg/0.5 Mg (3 Ml) Ud) 3 ml IH TIDRESP [facility] Last Admin: 05/24/18 08:19 Dose: 3 ml Fentanyl (Fentanyl) 25 mcg IV Q10M PRN PRN Reason: Pain, moderate (4-7) Heparin Sodium (Porcine) (Heparin) 5,000 units SC Q8 [facility] PRN Reason: Protocol Last Admin: 05/24/18 07:00 Dose: 5,000 units Phenytoin 100 mg/ Sodium (Chloride) 52 mls @ 104 mls/hr IVPB Q8 [facility] Last Admin: 05/24/18 05:09 Dose: 104 mls/hr Amino Acids (Clinimix 4.25/5 % (1000 Ml)) 1,000 mls @ 42 mls/hr IV .[id number] [facility] Last Admin: 05/23/18 18:00 Dose: 42 mls/hr Levetiracetam (Keppra 500mg Ivpb) 500 mg in 100 mls @ 400 mls/hr IVPB Q12 [facility] Last Admin: 05/24/18 10:33 Dose: 400 mls/hr Sodium Chloride (Sodium Chloride 0.9%) 1,000 mls @ 100 mls/hr IV .Q10H [facility] Last Admin: 05/24/18 10:33 Dose: 100 mls/hr Lorazepam (Ativan) 1 mg IV Q4 PRN; Protocol PRN Reason: Seizure activity Last Admin: 05/23/18 01:28 Dose: 1 mg Morphine Sulfate (Morphine) 2 mg IVP Q4H PRN PRN Reason: Pain, moderate (4-7) Morphine Sulfate (Morphine) 4 mg IVP Q4H PRN PRN Reason: Pain, severe (8-10) Last Admin: 05/24/18 04:46 Dose: 4 mg Pantoprazole Sodium (Protonix Inj) 40 mg IVP DAILY [facility] Last Admin: 05/24/18 10:32 Dose: 40 mg Physical Exam - Head Exam Head Exam: ATRAUMATIC - ENT Exam ENT Exam: Mucous Membranes Moist - Respiratory Exam Respiratory Exam: Clear to Auscultation Bilateral - Cardiovascular Exam Cardiovascular Exam: REGULAR RHYTHM - GI/Abdominal Exam GI & Abdominal Exam: Normal Bowel Sounds - Neurological Exam Neurological exam: Oriented x3 Results - Vital Signs Recent Vital Signs: Last Vital Signs Temp 99.5 F 05/24/18 11:58 Pulse 86 05/24/18 11:58 Resp 18 05/24/18 11:58 BP 132/72 05/24/18 11:58 Pulse Ox 100 05/24/18 06:00 - Labs Result Diagrams: 05/24/18 07:00 05/24/18 06:30 Labs: Laboratory Results - last 24 hr 05/23/18 05/23/18 05/23/18 11:09 16:06 21:24 WBC RBC Hgb Hct MCV MCH MCHC RDW Plt Count MPV Gran % Lymph % (Auto) Anderson % (Auto) Eos % (Auto) Baso % (Auto) Gran # Lymph # (Auto) Anderson # (Auto) Eos # (Auto) Baso # (Auto) Sodium Potassium Chloride Carbon Dioxide Anion Gap BUN Creatinine Est GFR ( Amer) Est GFR (Non-Af Amer) POC Glucose (mg/dL) 99 132 H 118 H Random Glucose Calcium Phosphorus Magnesium Total Bilirubin AST ALT Alkaline Phosphatase Total Protein Albumin Globulin Albumin/Globulin Ratio 05/24/18 05/24/18 05/24/18 06:30 07:00 07:16 WBC 10.7 RBC 3.29 L Hgb 9.4 L Hct 28.8 L MCV 87.5 MCH 28.6 MCHC 32.6 RDW 13.3 Plt Count 369 MPV 9.9 Gran % 81.7 H Lymph % (Auto) 9.5 L Anderson % (Auto) 8.1 H Eos % (Auto) 0.6 L Baso % (Auto) 0.1 Gran # 8.77 H Lymph # (Auto) 1.0 L Anderson # (Auto) 0.9 H Eos # (Auto) 0.1 Baso # (Auto) 0.01 Sodium 134 Potassium 3.3 L Chloride 101 Carbon Dioxide 24 Anion Gap 12 BUN 9 Creatinine 0.6 L Est GFR ( Amer) > 60 Est GFR (Non-Af Amer) > 60 POC Glucose (mg/dL) 127 H Random Glucose 131 H Calcium 8.7 Phosphorus 2.9 Magnesium 1.6 L Total Bilirubin 2.6 H AST 46 ALT 39 Alkaline Phosphatase 71 Total Protein 6.5 Albumin 3.1 Globulin 3.4 Albumin/Globulin Ratio 0.9 L Assessment & Plan - Assessment and Plan (Free Text) Assessment: Mr Rothman is a 73 year old gentleman with a history of a laryngeal cancer status post radiation and possibly chemotherapy in . He then recently had a local recurrence, and underwent a total laryngectomy. Now he presents with a local recurrence. We reached out to his medical oncologist, Dr Cleveland about the patient. The patients options could include reirradiation with chemotherapy with Dr Cleveland and Rodney versus palliative chemotherapy. Dr Cleveland is reaching out to the patient's radiation oncologist and PCP to discuss the case further. We relayed what we had discussed with Dr Cleveland to the patient. If reirradiation would be considered, one would need the original radiation segura and dose since this would influence planning given the increased risk of soft tissue damage from re-treatment.
--- NOTE | 2018-05-24 13:34 | CP.PCM.PN ---
Subjective - Date & Time of Evaluation Date of Evaluation: 05/24/18 Time of Evaluation: 13:31 - Subjective Subjective: pt seen and examined in bed resting comfortably with at side. questions answered Objective - Vital Signs/Intake and Output Vital Signs (last 24 hours): Temp Pulse Resp BP Pulse Ox 99.5 F 86 18 132/72 100 05/24/18 11:58 05/24/18 11:58 05/24/18 11:58 05/24/18 11:58 05/24/18 06:00 Intake and Output: 05/24/18 05/24/18 06:59 18:59 Intake Total 2960 Output Total 350 Balance 2610 - Medications Medications: Current Medications Acetaminophen (Tylenol 650 Mg Supp) 650 mg RC Q4 PRN PRN Reason: mild pain (1-3);Fever >100.4 F Albuterol/Ipratropium (Duoneb 3 Mg/0.5 Mg (3 Ml) Ud) 3 ml IH TIDRESP [facility] Last Admin: 05/24/18 08:19 Dose: 3 ml Fentanyl (Fentanyl) 25 mcg IV Q10M PRN PRN Reason: Pain, moderate (4-7) Heparin Sodium (Porcine) (Heparin) 5,000 units SC Q8 [facility] PRN Reason: Protocol Last Admin: 05/24/18 07:00 Dose: 5,000 units Phenytoin 100 mg/ Sodium (Chloride) 52 mls @ 104 mls/hr IVPB Q8 [facility] Last Admin: 05/24/18 05:09 Dose: 104 mls/hr Amino Acids (Clinimix 4.25/5 % (1000 Ml)) 1,000 mls @ 42 mls/hr IV .[id number] [facility] Last Admin: 05/23/18 18:00 Dose: 42 mls/hr Levetiracetam (Keppra 500mg Ivpb) 500 mg in 100 mls @ 400 mls/hr IVPB Q12 [facility] Last Admin: 05/24/18 10:33 Dose: 400 mls/hr Sodium Chloride (Sodium Chloride 0.9%) 1,000 mls @ 100 mls/hr IV .Q10H [facility] Last Admin: 05/24/18 10:33 Dose: 100 mls/hr Lorazepam (Ativan) 1 mg IV Q4 PRN; Protocol PRN Reason: Seizure activity Last Admin: 05/23/18 01:28 Dose: 1 mg Morphine Sulfate (Morphine) 2 mg IVP Q4H PRN PRN Reason: Pain, moderate (4-7) Morphine Sulfate (Morphine) 4 mg IVP Q4H PRN PRN Reason: Pain, severe (8-10) Last Admin: 05/24/18 04:46 Dose: 4 mg Pantoprazole Sodium (Protonix Inj) 40 mg IVP DAILY [facility] Last Admin: 05/24/18 10:32 Dose: 40 mg - Labs Labs: 05/24/18 07:00 05/24/18 06:30 PT 15.6 SECONDS (9.4-12.5) H 05/18/18 06:45 INR 1.35 05/18/18 06:45 - Constitutional Appears: Well, Non-toxic - Head Exam Head Exam: ATRAUMATIC - Eye Exam Pupil Exam: PERRL - ENT Exam ENT Exam: Mucous Membranes Moist - Neck Exam Additional comments: stoma patent tracheotomy tube removed for pt has large patent stoma Assessment and Plan (1) Dysphagia Status: Acute (2) Oropharyngeal mass Status: Acute (3) Laryngeal cancer Status: Acute (4) Aphonia Status: Acute - Assessment and Plan (Free Text) Plan: pt to be treated by oncology/and radiation potentially for recurrence. PEG feeds, rehab, hospice, and social work/manager case managementapplication defense manager regarding rehab vs home vs other. Your medical management
[2018-05-24] MEDS ORDERED: Amino/Dext 4.25/5 1,000 ML IV SCH (18:00)
--- NOTE | 2018-05-24 22:14 | CP.PCM.PN ---
<Ochoa Matute - Last Filed: 05/24/18 22:22> Subjective - Date & Time of Evaluation Date of Evaluation: 05/24/18 Time of Evaluation: 18:00 - Subjective Subjective: Pt seen and examined, denies SOB or any other new complaints at this time. Objective - Vital Signs/Intake and Output Vital Signs (last 24 hours): Temp Pulse Resp BP Pulse Ox 100.1 F H 11 L 18 119/62 100 05/24/18 18:00 05/24/18 18:00 05/24/18 18:00 05/24/18 18:00 05/24/18 06:00 Intake and Output: 05/24/18 05/25/18 18:59 06:59 Intake Total 1736 Balance 1736 - Medications Medications: Current Medications Acetaminophen (Tylenol 650 Mg Supp) 650 mg RC Q4 PRN PRN Reason: mild pain (1-3);Fever >100.4 F Last Admin: 05/24/18 16:55 Dose: 650 mg Albuterol/Ipratropium (Duoneb 3 Mg/0.5 Mg (3 Ml) Ud) 3 ml IH TIDRESP [facility] Last Admin: 05/24/18 19:41 Dose: 3 ml Fentanyl (Fentanyl) 25 mcg IV Q10M PRN PRN Reason: Pain, moderate (4-7) Heparin Sodium (Porcine) (Heparin) 5,000 units SC Q8 [facility] PRN Reason: Protocol Last Admin: 05/24/18 14:19 Dose: 5,000 units Phenytoin 100 mg/ Sodium (Chloride) 52 mls @ 104 mls/hr IVPB Q8 [facility] Last Admin: 05/24/18 14:18 Dose: 104 mls/hr Levetiracetam (Keppra 500mg Ivpb) 500 mg in 100 mls @ 400 mls/hr IVPB Q12 [facility] Last Admin: 05/24/18 10:33 Dose: 400 mls/hr Sodium Chloride (Sodium Chloride 0.9%) 1,000 mls @ 100 mls/hr IV .Q10H [facility] Last Admin: 05/24/18 10:33 Dose: 100 mls/hr Amino Acids (Clinimix 4.25/5 % (1000 Ml)) 1,000 mls @ 42 mls/hr IV .[id number] [facility] Stop: 05/27/18 18:01 Last Admin: 05/24/18 20:56 Dose: Not Given Ceftriaxone Sodium (Rocephin 2 Gm Ivpb) 2 gm in 100 mls @ 100 mls/hr IVPB DAILY [facility] PRN Reason: Protocol Lorazepam (Ativan) 1 mg IV Q4 PRN; Protocol PRN Reason: Seizure activity Last Admin: 05/23/18 01:28 Dose: 1 mg Morphine Sulfate (Morphine) 2 mg IVP Q4H PRN PRN Reason: Pain, moderate (4-7) Morphine Sulfate (Morphine) 4 mg IVP Q4H PRN PRN Reason: Pain, severe (8-10) Last Admin: 05/24/18 04:46 Dose: 4 mg Pantoprazole Sodium (Protonix Inj) 40 mg IVP DAILY [facility] Last Admin: 05/24/18 10:32 Dose: 40 mg - Labs Labs: 05/24/18 07:00 05/24/18 06:30 PT 15.6 SECONDS (9.4-12.5) H 05/18/18 06:45 INR 1.35 05/18/18 06:45 - Constitutional Appears: No Acute Distress - Head Exam Head Exam: ATRAUMATIC - Neck Exam Additional comments: tracheostomy in place - Respiratory Exam Respiratory Exam: NORMAL BREATHING PATTERN. absent: Rales, Wheezes - Cardiovascular Exam Cardiovascular Exam: REGULAR RHYTHM, +S1, +S2. absent: Murmur - GI/Abdominal Exam GI & Abdominal Exam: Soft, Normal Bowel Sounds. absent: Tenderness Additional comments: G-tube in place, no signs of infection - Extremities Exam Extremities Exam: Full ROM. absent: Calf Tenderness, Pedal Edema - Psychiatric Exam Psychiatric exam: Normal Affect, Normal Mood - Skin Skin Exam: Dry, Intact, Warm Assessment and Plan - Assessment and Plan (Free Text) Assessment: Pt is a 73 M with PMH of seizure and throat cancer (Dx 2013) s/p tracheostomy who presented with a 3 day history of dysphagia and dysphonia. Patient had Head/ Neck CT showing oropharyngeal mass concerning for malignancy. Plan: Dysphagia, oropharyngeal mass - GI Karen: EGD performed, biopsy taken during procedure, singed off - Heme/Onc Ibrahima,recommend out pt PET/CT, highly atypical cells suspicious for SCC - Surgery Rivas, placed G-Tube today - Imaging showing large soft tissue mass density R glottic area s/p total laryngectomy, suspicious of mets - CTAP: negative - MRI Soft tissue - keep head of bed elevated, daily weights, NPO, continue O2, aspiration precautions, suction prn, midline PICC - Pt eval, Pallative care - Rad Onc consulted Fever - 101.4F - CXR - UA - Procal - Blood Cx - PT - Rocephin 2gm daily Hx seizure - keppra 500mg IVPB Q12 - dilantin 100mg IVPB Q8 - ativan 1mg Q4 prn Hx COPD - Duonebs 3ml TID - Continue to monitor Ppx - Protonix - Heparin Pt seen, examined, and assessment and plan discussed with Dr Ball. Ochoa Matute PGY1 <Ashley Ball - Last Filed: 05/25/18 06:57> Objective - Vital Signs/Intake and Output Vital Signs (last 24 hours): Temp Pulse Resp BP Pulse Ox 99.6 F 88 21 133/72 100 05/25/18 05:50 05/25/18 05:50 05/25/18 05:50 05/25/18 05:50 05/24/18 06:00 Intake and Output: 05/24/18 05/25/18 18:59 06:59 Intake Total 1736 2500 Output Total 340 Balance 1736 2160 - Medications Medications: Current Medications Acetaminophen (Tylenol 650 Mg Supp) 650 mg RC Q4 PRN PRN Reason: mild pain (1-3);Fever >100.4 F Last Admin: 05/24/18 16:55 Dose: 650 mg Albuterol/Ipratropium (Duoneb 3 Mg/0.5 Mg (3 Ml) Ud) 3 ml IH TIDRESP [facility] Last Admin: 05/24/18 19:41 Dose: 3 ml Fentanyl (Fentanyl) 25 mcg IV Q10M PRN PRN Reason: Pain, moderate (4-7) Heparin Sodium (Porcine) (Heparin) 5,000 units SC Q8 [facility] PRN Reason: Protocol Last Admin: 05/25/18 06:05 Dose: 5,000 units Phenytoin 100 mg/ Sodium (Chloride) 52 mls @ 104 mls/hr IVPB Q8 [facility] Last Admin: 05/25/18 06:04 Dose: 104 mls/hr Levetiracetam (Keppra 500mg Ivpb) 500 mg in 100 mls @ 400 mls/hr IVPB Q12 [facility] Last Admin: 05/24/18 22:33 Dose: 400 mls/hr Sodium Chloride (Sodium Chloride 0.9%) 1,000 mls @ 100 mls/hr IV .Q10H [facility] Last Admin: 05/24/18 23:29 Dose: 100 mls/hr Amino Acids (Clinimix 4.25/5 % (1000 Ml)) 1,000 mls @ 42 mls/hr IV .[id number] [facility] Stop: 05/27/18 18:01 Last Admin: 05/24/18 20:56 Dose: Not Given Ceftriaxone Sodium (Rocephin 2 Gm Ivpb) 2 gm in 100 mls @ 100 mls/hr IVPB DAILY [facility] PRN Reason: Protocol Lorazepam (Ativan) 1 mg IV Q4 PRN; Protocol PRN Reason: Seizure activity Last Admin: 05/23/18 01:28 Dose: 1 mg Morphine Sulfate (Morphine) 2 mg IVP Q4H PRN PRN Reason: Pain, moderate (4-7) Morphine Sulfate (Morphine) 4 mg IVP Q4H PRN PRN Reason: Pain, severe (8-10) Last Admin: 05/24/18 04:46 Dose: 4 mg Pantoprazole Sodium (Protonix Inj) 40 mg IVP DAILY [facility] Last Admin: 05/24/18 10:32 Dose: 40 mg - Labs Labs: 05/24/18 07:00 05/24/18 06:30 PT 15.6 SECONDS (9.4-12.5) H 05/18/18 06:45 INR 1.35 05/18/18 06:45 Attending/Attestation - Attestation I have personally seen and examined this patient.: Yes I have fully participated in the care of the patient.: Yes I have reviewed all pertinent clinical information, including history, physical exam and plan: Yes Notes (Text): 05/24/18 73 year old male with past medical history of seizure and throat cancer s/p tracheostomy who presented with complaint of dysphagia. CT neck showed oropharyngeal mass concerning for malignancy. Patient was seen by ENT, GI, surgery and hematology / oncology. EGD was done earlier this week as above. Biopsy was done; suspicious for squamous cell carcinoma. Patient is s/p G-tube yesterday and started on tube feeds today. Case discussed with hematology / oncology who recommended MRI soft tissue neck. Radiation / oncology evaluation was appreciated. Patient was febrile this evening. Ceftriaxone given. Will check septic workup including CXR, blood cultures, UA and urine culture. Patient is on dilantin and keppra for history of seizure. PT evaluation was requested. Ashley Ball MD Hospitalist.
[2018-05-25 07:50] LABS: BASO # 0.01 K/mm3 (0.0-2.0); BASO % 0.1 % (0.0-3.0); EOS # 0.1 (0.0-0.7); EOS % 0.6 % (1.5-5.0); GRAN # 8.75 (1.4-6.5); GRAN % 79.5 % (50.0-68.0); HEMOGLOBIN 9.1 g/dL (14.0-18.0); LYMPH # 0.9 (1.2-3.4); LYMPH % 8.4 % (22.0-35.0); MEAN CELL VOLUME 87.1 fl (80.0-105.0); MEAN CORPUSCULAR HEMOGLOBIN 29.4 pg (25.0-35.0); MEAN CORPUSCULAR HGB CONC 33.7 g/dl (31.0-37.0); MEAN PLATELET VOLUME 9.7 fl (7.0-11.0); MONO # 1.3 (0.1-0.6); MONO % 11.4 % (1.0-6.0); RBC 3.1 10^6/uL (3.5-6.1); RED CELL DISTRIBUTION WIDTH 13.6 % (11.5-14.5)
[2018-05-25 08:08] LABS: ALB/GLOB RATIO 0.9 (1.1-1.8); ALBUMIN 2.8 g/dL (3.0-4.8); ALT/SGPT 48 U/L (7-56); AST/SGOT 63 U/L (17-59); BLOOD UREA NITROGEN 7 mg/dL (7-21); CALCIUM 8.4 mg/dL (8.4-10.5); GFR NON-AFRICAN AMERICAN > 60
[2018-05-25] MEDS: Albuterol-Ipratrop 3 mg / 0.5 (3 ml) UD IH SCH ×3 (08:43→20:19)
--- NOTE | 2018-05-25 09:02 | CP.PCM.PN ---
Subjective - Date & Time of Evaluation Date of Evaluation: 05/25/18 Time of Evaluation: 07:00 - Subjective Subjective: General Surgery Dr. Rivas Pt S&E @bedside. Pt started on tube feeds yesterday, tolerating well w/ no issues. no acute events overnight. tube feeds at goal. no complaints. no F/C, N/ V, abd pain. Objective - Vital Signs/Intake and Output Vital Signs (last 24 hours): Temp Pulse Resp BP Pulse Ox 99.6 F 88 21 133/72 100 05/25/18 05:50 05/25/18 05:50 05/25/18 05:50 05/25/18 05:50 05/24/18 06:00 Intake and Output: 05/25/18 05/25/18 06:59 18:59 Intake Total 2500 Output Total 340 Balance 2160 - Medications Medications: Current Medications Acetaminophen (Tylenol 650 Mg Supp) 650 mg RC Q4 PRN PRN Reason: mild pain (1-3);Fever >100.4 F Last Admin: 05/24/18 16:55 Dose: 650 mg Albuterol/Ipratropium (Duoneb 3 Mg/0.5 Mg (3 Ml) Ud) 3 ml IH TIDRESP [facility] Last Admin: 05/25/18 08:43 Dose: 3 ml Fentanyl (Fentanyl) 25 mcg IV Q10M PRN PRN Reason: Pain, moderate (4-7) Heparin Sodium (Porcine) (Heparin) 5,000 units SC Q8 [facility] PRN Reason: Protocol Last Admin: 05/25/18 06:05 Dose: 5,000 units Phenytoin 100 mg/ Sodium (Chloride) 52 mls @ 104 mls/hr IVPB Q8 [facility] Last Admin: 05/25/18 06:04 Dose: 104 mls/hr Levetiracetam (Keppra 500mg Ivpb) 500 mg in 100 mls @ 400 mls/hr IVPB Q12 [facility] Last Admin: 05/24/18 22:33 Dose: 400 mls/hr Sodium Chloride (Sodium Chloride 0.9%) 1,000 mls @ 100 mls/hr IV .Q10H [facility] Last Admin: 05/24/18 23:29 Dose: 100 mls/hr Amino Acids (Clinimix 4.25/5 % (1000 Ml)) 1,000 mls @ 42 mls/hr IV .[id number] [facility] Stop: 05/27/18 18:01 Last Admin: 05/24/18 20:56 Dose: Not Given Ceftriaxone Sodium (Rocephin 2 Gm Ivpb) 2 gm in 100 mls @ 100 mls/hr IVPB DAILY [facility] PRN Reason: Protocol Lorazepam (Ativan) 1 mg IV Q4 PRN; Protocol PRN Reason: Seizure activity Last Admin: 05/23/18 01:28 Dose: 1 mg Morphine Sulfate (Morphine) 2 mg IVP Q4H PRN PRN Reason: Pain, moderate (4-7) Morphine Sulfate (Morphine) 4 mg IVP Q4H PRN PRN Reason: Pain, severe (8-10) Last Admin: 05/24/18 04:46 Dose: 4 mg Pantoprazole Sodium (Protonix Inj) 40 mg IVP DAILY [facility] Last Admin: 05/24/18 10:32 Dose: 40 mg - Labs Labs: 05/25/18 07:00 05/25/18 07:00 PT 15.6 SECONDS (9.4-12.5) H 05/18/18 06:45 INR 1.35 05/18/18 06:45 - Constitutional Appears: Non-toxic, No Acute Distress, Chronically Ill - Head Exam Head Exam: NORMAL INSPECTION - Eye Exam Eye Exam: Normal appearance - ENT Exam ENT Exam: Mucous Membranes Moist - Respiratory Exam Respiratory Exam: NORMAL BREATHING PATTERN. absent: Accessory Muscle Use, Respiratory Distress Additional comments: trach collar in place - Cardiovascular Exam Cardiovascular Exam: REGULAR RHYTHM. absent: Bradycardia, Tachycardia - GI/Abdominal Exam GI & Abdominal Exam: Soft. absent: Distended, Tenderness Additional comments: dressing c/d/i - Neurological Exam Neurological Exam: Alert, Awake - Psychiatric Exam Psychiatric exam: Normal Affect, Normal Mood - Skin Skin Exam: Dry, Intact, Normal Color, Warm Assessment and Plan - Assessment and Plan (Free Text) Assessment: 73 y/o M w/ dysphagia 2/2 recurrent laryngeal Ca POD#2 s/p Stam Gastrostomy - cont tube feeds @60cc/hr - d/c PPN - cont pain management - cont medical management - f/u palliative recs - no further surgical intervention at this. will follow peripherally - ailyn to be removed POD#10-14 Pt discussed w/ Dr Rob Mireles DO PGY3
[2018-05-25] MEDS: cefTRIAXone 2 GM IN NS 2 GM/100 ML BAG IVPB SCH (11:15)
[2018-05-25] MEDS: Sodium Chloride 0.9% 1,000 ML IV SCH ×2 (11:16→23:21)
[2018-05-25] MEDS: levETIRAcetam 500mg IVPB 500 MG/100 ML BAG IVPB SCH ×2 (11:19→22:33)
--- NOTE | 2018-05-25 13:23 | RAD ---
Date of service: 05/24/2018 HISTORY: fever COMPARISON: 05/17/2018 FINDINGS: LUNGS: Atelectasis at the right lung base PLEURA: No significant pleural effusion identified, no pneumothorax apparent. CARDIOVASCULAR: Normal. OSSEOUS STRUCTURES: No significant abnormalities. VISUALIZED UPPER ABDOMEN: Normal. OTHER FINDINGS: None. IMPRESSION: No active disease.
--- NOTE | 2018-05-25 20:36 | CP.PCM.PN ---
<Ferdinand Hatfield - Last Filed: 05/26/18 00:40> Subjective - Date & Time of Evaluation Date of Evaluation: 05/25/18 Time of Evaluation: 20:35 - Subjective Subjective: Internal Medicine Progress Note (Hospitalist): Cherie PGY2 Patient seen and assessed at bedside. Fever noted yesterday afternoon. Patient currently without complaints and he denies any chills, headache, chest pain, SOB , abdominal pain, N/V/D/C, changes in urine output and any numbness/tingling/ weakness of any extremity. Objective - Vital Signs/Intake and Output Vital Signs (last 24 hours): Temp Pulse Resp BP Pulse Ox 99.6 F 90 20 138/81 98 05/25/18 18:00 05/25/18 18:00 05/25/18 18:00 05/25/18 18:00 05/25/18 18:00 Intake and Output: 05/25/18 05/26/18 18:59 06:59 Intake Total 0 Output Total 650 Balance -650 - Medications Medications: Current Medications Acetaminophen (Tylenol 650 Mg Supp) 650 mg RC Q4 PRN PRN Reason: mild pain (1-3);Fever >100.4 F Last Admin: 05/24/18 16:55 Dose: 650 mg Albuterol/Ipratropium (Duoneb 3 Mg/0.5 Mg (3 Ml) Ud) 3 ml IH TIDRESP [facility] Last Admin: 05/25/18 20:19 Dose: 3 ml Fentanyl (Fentanyl) 25 mcg IV Q10M PRN PRN Reason: Pain, moderate (4-7) Heparin Sodium (Porcine) (Heparin) 5,000 units SC Q8 [facility]EN PRN Reason: Protocol Last Admin: 05/25/18 14:44 Dose: 5,000 units Phenytoin 100 mg/ Sodium (Chloride) 52 mls @ 104 mls/hr IVPB Q8 [facility] Last Admin: 05/25/18 14:44 Dose: 104 mls/hr Levetiracetam (Keppra 500mg Ivpb) 500 mg in 100 mls @ 400 mls/hr IVPB Q12 [facility] Last Admin: 05/25/18 11:19 Dose: 400 mls/hr Sodium Chloride (Sodium Chloride 0.9%) 1,000 mls @ 100 mls/hr IV .Q10H [facility] Last Admin: 05/25/18 11:16 Dose: 100 mls/hr Ceftriaxone Sodium (Rocephin 2 Gm Ivpb) 2 gm in 100 mls @ 100 mls/hr IVPB DAILY [facility]EN PRN Reason: Protocol Last Admin: 05/25/18 11:15 Dose: 100 mls/hr Lorazepam (Ativan) 1 mg IV Q4 PRN; Protocol PRN Reason: Seizure activity Last Admin: 05/23/18 01:28 Dose: 1 mg Morphine Sulfate (Morphine) 2 mg IVP Q4H PRN PRN Reason: Pain, moderate (4-7) Morphine Sulfate (Morphine) 4 mg IVP Q4H PRN PRN Reason: Pain, severe (8-10) Last Admin: 05/24/18 04:46 Dose: 4 mg Pantoprazole Sodium (Protonix Inj) 40 mg IVP DAILY [facility] Last Admin: 05/25/18 11:20 Dose: 40 mg - Labs Labs: 05/25/18 07:00 05/25/18 07:00 PT 15.6 SECONDS (9.4-12.5) H 05/18/18 06:45 INR 1.35 05/18/18 06:45 - Constitutional Appears: No Acute Distress - Head Exam Head Exam: ATRAUMATIC - Eye Exam Eye Exam: EOMI - ENT Exam ENT Exam: Mucous Membranes Moist - Neck Exam Additional comments: Tracheostomy in place without signs of clinical infection of the surrounding tissues - Respiratory Exam Respiratory Exam: Clear to Ausculation Bilateral, NORMAL BREATHING PATTERN - Cardiovascular Exam Cardiovascular Exam: REGULAR RHYTHM, +S1, +S2 - GI/Abdominal Exam GI & Abdominal Exam: Soft, Normal Bowel Sounds. absent: Tenderness - Extremities Exam Extremities Exam: absent: Calf Tenderness - Psychiatric Exam Psychiatric exam: Normal Affect, Normal Mood - Skin Skin Exam: Dry, Intact, Normal Color, Warm Assessment and Plan - Assessment and Plan (Free Text) Assessment: 73 year old male with a past medical history significant for seizure and throat cancer s/p tracheostomy who presented with complaints of dysphagia. Plan: 1. Dysphagia -MRI Orbit, Face and Neck pending -CT Neck showed oropharyngeal mass concerning for malignancy -EGD Biopsy: Suspicious for SCC -Pain control with Morphine PRN -Keep HOB elevated -Aspiration precautions -TF: Jevity 1.2 (10ml/10ml/60ml) -Palliative Care, ENT, GI, Hematology/Oncology, Surgery and Radiation Oncology consulted, all recommendations appreciated 2. Fever -Tmax: 101.1 on 05/24 -Repeat blood cultures negative for 24 hours -Chest X-Ray showed no active disease -UA not concerning for UTI -Continue IV Rocephin -Will continue to monitor as patient has had no more fevers or signs of active infection 3. History of Seizures -Continue Keppra and Dilantin -Seizure precautions 4. History of COPD -Duonebs TID GI Prophylaxis: Protonix DVT Prophylaxis: Heparin Patient seen and case discussed with attending, Dr. Ball. <Ashley Ball - Last Filed: 05/26/18 06:49> Objective - Vital Signs/Intake and Output Vital Signs (last 24 hours): Temp Pulse Resp BP Pulse Ox 99.9 F H 98 H 20 136/81 96 05/26/18 00:01 05/26/18 02:00 05/26/18 00:01 05/26/18 00:01 05/26/18 00:01 Intake and Output: 05/25/18 05/26/18 18:59 06:59 Intake Total 0 Output Total 1550 Balance -1550 - Medications Medications: Current Medications Acetaminophen (Tylenol 650 Mg Supp) 650 mg RC Q4 PRN PRN Reason: mild pain (1-3);Fever >100.4 F Last Admin: 05/24/18 16:55 Dose: 650 mg Albuterol/Ipratropium (Duoneb 3 Mg/0.5 Mg (3 Ml) Ud) 3 ml IH TIDRESP [facility] Last Admin: 05/25/18 20:19 Dose: 3 ml Fentanyl (Fentanyl) 25 mcg IV Q10M PRN PRN Reason: Pain, moderate (4-7) Heparin Sodium (Porcine) (Heparin) 5,000 units SC Q8 [facility] PRN Reason: Protocol Last Admin: 05/26/18 06:15 Dose: 5,000 units Phenytoin 100 mg/ Sodium (Chloride) 52 mls @ 104 mls/hr IVPB Q8 [facility] Last Admin: 05/26/18 06:15 Dose: 104 mls/hr Levetiracetam (Keppra 500mg Ivpb) 500 mg in 100 mls @ 400 mls/hr IVPB Q12 [facility] Last Admin: 05/25/18 22:33 Dose: 400 mls/hr Sodium Chloride (Sodium Chloride 0.9%) 1,000 mls @ 100 mls/hr IV .Q10H [facility] Last Admin: 05/25/18 23:21 Dose: 100 mls/hr Ceftriaxone Sodium (Rocephin 2 Gm Ivpb) 2 gm in 100 mls @ 100 mls/hr IVPB DAILY [facility]AVEEN PRN Reason: Protocol Last Admin: 05/25/18 11:15 Dose: 100 mls/hr Lorazepam (Ativan) 1 mg IV Q4 PRN; Protocol PRN Reason: Seizure activity Last Admin: 05/23/18 01:28 Dose: 1 mg Morphine Sulfate (Morphine) 2 mg IVP Q4H PRN PRN Reason: Pain, moderate (4-7) Last Admin: 05/25/18 22:46 Dose: 2 mg Morphine Sulfate (Morphine) 4 mg IVP Q4H PRN PRN Reason: Pain, severe (8-10) Last Admin: 05/24/18 04:46 Dose: 4 mg Pantoprazole Sodium (Protonix Inj) 40 mg IVP DAILY [facility] Last Admin: 05/25/18 11:20 Dose: 40 mg - Labs Labs: 05/25/18 07:00 05/25/18 07:00 PT 15.6 SECONDS (9.4-12.5) H 05/18/18 06:45 INR 1.35 05/18/18 06:45 Attending/Attestation - Attestation I have personally seen and examined this patient.: Yes I have fully participated in the care of the patient.: Yes I have reviewed all pertinent clinical information, including history, physical exam and plan: Yes Notes (Text): 05/25/18 73 year old male with past medical history of seizure and throat cancer s/p tracheostomy who presented with complaint of dysphagia. CT neck showed oropharyngeal mass concerning for malignancy. Patient was seen by ENT, GI, surgery and hematology / oncology. EGD was done earlier last week as above. Biopsy was done; suspicious for squamous cell carcinoma. Patient is s/p G-tube last week by surgery. Tolerating feeds now. Case discussed with hematology / oncology who recommended MRI soft tissue neck. Radiation / oncology evaluation was appreciated. Patient was febrile yesterday. Started on rocephin while awaiting cultures. Septic workup so far negative. Patient is on dilantin and keppra for history of seizure. PT evaluation was appreciated; recommended [facility]. Ashley Ball MD Hospitalist.
[2018-05-25] MEDS ORDERED: Phenytoin 100 mg/2 ml Inj ONE (22:18)
[2018-05-26 07:31] LABS: BASO # 0.01 K/mm3 (0.0-2.0); BASO % 0.1 % (0.0-3.0); EOS % 0.2 % (1.5-5.0); GRAN # 16.02 (1.4-6.5); GRAN % 92.4 % (50.0-68.0); LYMPH # 0.5 (1.2-3.4); LYMPH % 2.6 % (22.0-35.0); MEAN CELL VOLUME 87.3 fl (80.0-105.0); MEAN CORPUSCULAR HEMOGLOBIN 28.9 pg (25.0-35.0); MEAN CORPUSCULAR HGB CONC 33.1 g/dl (31.0-37.0); MEAN PLATELET VOLUME 10.2 fl (7.0-11.0); MONO # 0.8 (0.1-0.6); MONO % 4.7 % (1.0-6.0); PLATELET COUNT 434 10^3/uL (120.0-450.0); RBC 3.46 10^6/uL (3.5-6.1); RED CELL DISTRIBUTION WIDTH 13.8 % (11.5-14.5); WHITE BLOOD COUNT 17.3 10^3/ul (4.5-11.0)
[2018-05-26 07:52] LABS: BLOOD UREA NITROGEN 6 mg/dL (7-21); GFR NON-AFRICAN AMERICAN > 60
[2018-05-26 07:53] LABS: ALB/GLOB RATIO 0.9 (1.1-1.8); ALBUMIN 3.2 g/dL (3.0-4.8); ALT/SGPT 46 U/L (7-56); AST/SGOT 66 U/L (17-59); CALCIUM 8.9 mg/dL (8.4-10.5)
[2018-05-26] MEDS: Albuterol-Ipratrop 3 mg / 0.5 (3 ml) UD IH SCH ×3 (08:47→19:54)
[2018-05-26 09:08] LABS: BAND 5 % (0-2); LYMPHOCYTE 1 % (22.0-35.0); MONOCYTE 3 % (1.0-6.0); NEUTROPHIL 90 % (50.0-70.0); PLATELET ESTIMATE NORMAL (NORMAL)
[2018-05-26] MEDS: cefTRIAXone 2 GM IN NS 2 GM/100 ML BAG IVPB SCH (10:16)
[2018-05-26] MEDS: levETIRAcetam 500mg IVPB 500 MG/100 ML BAG IVPB SCH ×2 (10:16→22:00)
--- NOTE | 2018-05-26 10:16 | RAD ---
Date of service: 05/26/2018 HISTORY: r/o asp COMPARISON: 05/24/2018 FINDINGS: LUNGS: Alveolar infiltrate in the left upper lobe PLEURA: No significant pleural effusion identified, no pneumothorax apparent. CARDIOVASCULAR: Normal. OSSEOUS STRUCTURES: No significant abnormalities. VISUALIZED UPPER ABDOMEN: Normal. OTHER FINDINGS: None. IMPRESSION: Left upper lobe pneumonia
--- NOTE | 2018-05-26 12:06 | CARD ---
APPROVED REPORT Date of service: 05/26/2018 EKG Measurement Heart [id number] <Conclusion> Poor data quality, interpretation may be adversely affected Sinus tachycardia Nonspecific T wave abnormality Abnormal ECG
[2018-05-26] MEDS: Sodium Chloride 0.9% 1,000 ML IV SCH ×2 (12:19→22:59)
--- NOTE | 2018-05-26 12:56 | CP.PCM.PN ---
<Lyndon Mayers - Last Filed: 05/26/18 12:53> Subjective - Date & Time of Evaluation Date of Evaluation: 05/26/18 Time of Evaluation: 12:53 - Subjective Subjective: Patient seen and examined at bedside. Patient was tachycardic overnight and had his tracheostomy site suctioned. Patient with no pain, shortness of breath, nausea, vomiting, fever, chills. Objective - Vital Signs/Intake and Output Vital Signs (last 24 hours): Temp Pulse Resp BP Pulse Ox 100.6 F H 130 H 22 176/95 H 92 L 05/26/18 11:26 05/26/18 10:00 05/26/18 06:00 05/26/18 06:00 05/26/18 06:00 Intake and Output: 05/26/18 05/26/18 06:59 18:59 Intake Total 0 Output Total 1550 Balance -1550 - Medications Medications: Current Medications Acetaminophen (Tylenol 650 Mg Supp) 650 mg RC Q4 PRN PRN Reason: mild pain (1-3);Fever >100.4 F Last Admin: 05/26/18 11:26 Dose: 650 mg Albuterol/Ipratropium (Duoneb 3 Mg/0.5 Mg (3 Ml) Ud) 3 ml IH TIDRESP [facility] Last Admin: 05/26/18 08:47 Dose: 3 ml Fentanyl (Fentanyl) 25 mcg IV Q10M PRN PRN Reason: Pain, moderate (4-7) Heparin Sodium (Porcine) (Heparin) 5,000 units SC Q8 [facility] PRN Reason: Protocol Last Admin: 05/26/18 06:15 Dose: 5,000 units Phenytoin 100 mg/ Sodium (Chloride) 52 mls @ 104 mls/hr IVPB Q8 [facility] Last Admin: 05/26/18 06:15 Dose: 104 mls/hr Levetiracetam (Keppra 500mg Ivpb) 500 mg in 100 mls @ 400 mls/hr IVPB Q12 [facility] Last Admin: 05/26/18 10:16 Dose: 400 mls/hr Sodium Chloride (Sodium Chloride 0.9%) 1,000 mls @ 100 mls/hr IV .Q10H [facility] Last Admin: 05/26/18 12:19 Dose: 100 mls/hr Ampicillin Sodium/Sulbactam (Sodium 3 gm/ Sodium Chloride) 100 mls @ 200 mls/ hr IVPB Q6 [facility] PRN Reason: Protocol Lorazepam (Ativan) 1 mg IV Q4 PRN; Protocol PRN Reason: Seizure activity Last Admin: 05/23/18 01:28 Dose: 1 mg Morphine Sulfate (Morphine) 2 mg IVP Q4H PRN PRN Reason: Pain, moderate (4-7) Last Admin: 05/25/18 22:46 Dose: 2 mg Morphine Sulfate (Morphine) 4 mg IVP Q4H PRN PRN Reason: Pain, severe (8-10) Last Admin: 05/24/18 04:46 Dose: 4 mg Pantoprazole Sodium (Protonix Inj) 40 mg IVP DAILY [facility] Last Admin: 05/26/18 10:16 Dose: 40 mg - Labs Labs: 05/26/18 06:30 05/26/18 06:30 PT 15.6 SECONDS (9.4-12.5) H 05/18/18 06:45 INR 1.35 05/18/18 06:45 - Constitutional Appears: Non-toxic, No Acute Distress - Head Exam Head Exam: ATRAUMATIC, NORMAL INSPECTION, NORMOCEPHALIC - ENT Exam Additional comments: Trach collar in place - Respiratory Exam Respiratory Exam: Clear to Ausculation Bilateral, NORMAL BREATHING PATTERN - Cardiovascular Exam Cardiovascular Exam: Tachycardia, +S1, +S2 - GI/Abdominal Exam GI & Abdominal Exam: Soft, Normal Bowel Sounds. absent: Tenderness - Extremities Exam Extremities Exam: Pedal Edema (Trace b/l) - Neurological Exam Neurological Exam: Alert, Awake, Oriented x3 - Psychiatric Exam Psychiatric exam: Normal Affect, Normal Mood - Skin Skin Exam: Intact, Normal Color, Warm Assessment and Plan - Assessment and Plan (Free Text) Plan: 73 year old male with a past medical history significant for seizure and throat cancer s/p tracheostomy who presented with complaints of dysphagia. Chest x-ray this morning shows new left upper lobe pneumonia. Will change Rocephin to Unasyn. 1. Dysphagia -MRI Orbit, Face and Neck pending -CT Neck showed oropharyngeal mass concerning for malignancy -EGD Biopsy: Suspicious for SCC -Morphine PRN -Keep HOB elevated, Aspiration precautions -Aspiration precautions -TF: Jevity 1.2 (10ml/10ml/60ml), held at this time as per patient request -Palliative Care, ENT, GI, Hematology/Oncology, Surgery and Radiation Oncology following 2. Left upper lobe pneumonia -Possible aspiration pneumonia -CXR shows left upper lobe infiltrate -Will change Rocephin to Unasyn -Procal ordered -WBC elevated 3. History of Seizures -Continue Keppra and Dilantin -Seizure precautions 4. History of COPD -Duonebs TID 5. DVT/GI Prophylaxis -Protonix -Heparin Riana, PGY-3 <Ashley Ball - Last Filed: 05/26/18 16:24> Objective - Vital Signs/Intake and Output Vital Signs (last 24 hours): Temp Pulse Resp BP Pulse Ox 99.6 F 113 H 22 109/63 92 L 05/26/18 12:26 05/26/18 12:00 05/26/18 12:00 05/26/18 12:00 05/26/18 06:00 Intake and Output: 05/26/18 05/26/18 06:59 18:59 Intake Total 0 Output Total 1550 Balance -1550 - Medications Medications: Current Medications Acetaminophen (Tylenol 650 Mg Supp) 650 mg RC Q4 PRN PRN Reason: mild pain (1-3);Fever >100.4 F Last Admin: 05/26/18 11:26 Dose: 650 mg Albuterol/Ipratropium (Duoneb 3 Mg/0.5 Mg (3 Ml) Ud) 3 ml IH TIDRESP [facility] Last Admin: 05/26/18 14:19 Dose: Not Given Fentanyl (Fentanyl) 25 mcg IV Q10M PRN PRN Reason: Pain, moderate (4-7) Heparin Sodium (Porcine) (Heparin) 5,000 units SC Q8 [facility] PRN Reason: Protocol Last Admin: 05/26/18 15:14 Dose: 5,000 units Phenytoin 100 mg/ Sodium (Chloride) 52 mls @ 104 mls/hr IVPB Q8 [facility] Last Admin: 05/26/18 15:15 Dose: 104 mls/hr Levetiracetam (Keppra 500mg Ivpb) 500 mg in 100 mls @ 400 mls/hr IVPB Q12 [facility] Last Admin: 05/26/18 10:16 Dose: 400 mls/hr Sodium Chloride (Sodium Chloride 0.9%) 1,000 mls @ 100 mls/hr IV .Q10H [facility] Last Admin: 05/26/18 12:19 Dose: 100 mls/hr Ampicillin Sodium/Sulbactam (Sodium 3 gm/ Sodium Chloride) 100 mls @ 200 mls/ hr IVPB Q6 [facility] PRN Reason: Protocol Lorazepam (Ativan) 1 mg IV Q4 PRN; Protocol PRN Reason: Seizure activity Last Admin: 05/23/18 01:28 Dose: 1 mg Morphine Sulfate (Morphine) 2 mg IVP Q4H PRN PRN Reason: Pain, moderate (4-7) Last Admin: 05/25/18 22:46 Dose: 2 mg Morphine Sulfate (Morphine) 4 mg IVP Q4H PRN PRN Reason: Pain, severe (8-10) Last Admin: 05/24/18 04:46 Dose: 4 mg Pantoprazole Sodium (Protonix Inj) 40 mg IVP DAILY [facility] Last Admin: 05/26/18 10:16 Dose: 40 mg - Labs Labs: 05/26/18 06:30 05/26/18 06:30 PT 15.6 SECONDS (9.4-12.5) H 05/18/18 06:45 INR 1.35 05/18/18 06:45 Attending/Attestation - Attestation I have personally seen and examined this patient.: Yes I have fully participated in the care of the patient.: Yes I have reviewed all pertinent clinical information, including history, physical exam and plan: Yes Notes (Text): 05/26/18 16:22 73 year old male with past medical history of seizure and throat cancer s/p tracheostomy who presented with complaint of dysphagia. CT neck showed oropharyngeal mass concerning for malignancy. Patient was seen by ENT, GI, surgery and hematology / oncology. EGD was done earlier last week as above. Biopsy was done; suspicious for squamous cell carcinoma. Patient is s/p G-tube last week by surgery and patient was started on tube feeds. Case discussed with hematology / oncology who recommended MRI soft tissue neck. Radiation / oncology evaluation was appreciated. Patient had fever on Alfredo with leukocytosis noted today. CXR shows KATHERINE pneumonia. Will switch rocephin to unasyn. Patient is on dilantin and keppra for history of seizure. PT evaluation was appreciated; recommended [facility]. Ashley Ball MD Hospitalist.
[2018-05-26] MEDS ORDERED: Gadodiamide 287 MG/ML VIAL (15ML) IV ONE (14:03)
[2018-05-27] MEDS: Albuterol-Ipratrop 3 mg / 0.5 (3 ml) UD IH SCH ×3 (07:03→19:25)
[2018-05-27 07:23] LABS: BASO # 0.03 K/mm3 (0.0-2.0); BASO % 0.2 % (0.0-3.0); EOS # 0.3 (0.0-0.7); EOS % 1.8 % (1.5-5.0); GRAN # 13.73 (1.4-6.5); GRAN % 86.3 % (50.0-68.0); HEMOGLOBIN 8.5 g/dL (14.0-18.0); MEAN CELL VOLUME 87.8 fl (80.0-105.0); MEAN CORPUSCULAR HEMOGLOBIN 28.9 pg (25.0-35.0); MEAN CORPUSCULAR HGB CONC 32.9 g/dl (31.0-37.0); MEAN PLATELET VOLUME 9.3 fl (7.0-11.0); MONO # 0.9 (0.1-0.6); MONO % 5.7 % (1.0-6.0); RBC 2.94 10^6/uL (3.5-6.1); RED CELL DISTRIBUTION WIDTH 13.8 % (11.5-14.5); WHITE BLOOD COUNT 15.9 10^3/ul (4.5-11.0)
[2018-05-27 08:04] LABS: ALB/GLOB RATIO 0.9 (1.1-1.8); ALBUMIN 2.8 g/dL (3.0-4.8); ALT/SGPT 38 U/L (7-56); AST/SGOT 45 U/L (17-59); BLOOD UREA NITROGEN 7 mg/dL (7-21); CALCIUM 8.5 mg/dL (8.4-10.5); GFR NON-AFRICAN AMERICAN > 60
[2018-05-27 08:59] LABS: PH,URINE 6.5 (4.7-8.0); URINE BILIRUBIN NEGATIVE (NEGATIVE); URINE BLOOD NEGATIVE (NEGATIVE); URINE GLUCOSE (UA) NEGATIVE (NEGATIVE); URINE LEUKOCYTE ESTERASE NEGATIVE Leu/uL (NEGATIVE); URINE PROTEIN TRACE mg/dL (<30 mg/dL)
[2018-05-27 09:01] LABS: URINE APPEARANCE CLEAR (CLEAR); URINE COLOR YELLOW (YELLOW)
[2018-05-27] MEDS: levETIRAcetam 500mg IVPB 500 MG/100 ML BAG IVPB SCH ×2 (09:19→21:47)
[2018-05-27] MEDS: Sodium Chloride 0.9% 1,000 ML IV SCH ×2 (09:20→16:55)
[2018-05-27 09:28] LABS: URINE AMORPHOUS SEDIMENT FEW; URINE BACTERIA MANY (NEG); URINE EPITHELIAL CELLS 0 - 2 /hpf (0-5); URINE RBC 0 - 2 /hpf (0-2)
--- NOTE | 2018-05-27 11:51 | CP.PCM.PN ---
Subjective - Date & Time of Evaluation Date of Evaluation: 05/27/18 Time of Evaluation: 11:46 - Subjective Subjective: Heme/Onc Progress Note for Dr. Alexandra -- Jose Guerra DO PGY2 Patient seen and examined at bedside. No acute overnight events. Patient offers no complaints at this time. Patient currently on IV abx for KATHERINE PNA. Patient denies CP, SOB, n/v/d, abdominal pain, fever, chills, STARR, or dizziness. Objective - Vital Signs/Intake and Output Vital Signs (last 24 hours): Temp Pulse Resp BP Pulse Ox 99.6 F 96 H 20 136/69 92 L 05/27/18 06:00 05/27/18 06:00 05/27/18 06:00 05/27/18 06:00 05/27/18 06:00 Intake and Output: 05/27/18 05/27/18 06:59 18:59 Intake Total 1200 Output Total 200 Balance 1200 -200 - Medications Medications: Current Medications Acetaminophen (Tylenol 650 Mg Supp) 650 mg RC Q4 PRN PRN Reason: mild pain (1-3);Fever >100.4 F Last Admin: 05/26/18 11:26 Dose: 650 mg Albuterol/Ipratropium (Duoneb 3 Mg/0.5 Mg (3 Ml) Ud) 3 ml IH TIDRESP [facility] Last Admin: 05/27/18 07:03 Dose: 3 ml Fentanyl (Fentanyl) 25 mcg IV Q10M PRN PRN Reason: Pain, moderate (4-7) Heparin Sodium (Porcine) (Heparin) 5,000 units SC Q8 [facility] PRN Reason: Protocol Last Admin: 05/27/18 05:04 Dose: 5,000 units Phenytoin 100 mg/ Sodium (Chloride) 52 mls @ 104 mls/hr IVPB Q8 [facility] Last Admin: 05/27/18 05:21 Dose: 104 mls/hr Levetiracetam (Keppra 500mg Ivpb) 500 mg in 100 mls @ 400 mls/hr IVPB Q12 [facility] Last Admin: 05/27/18 09:19 Dose: 400 mls/hr Sodium Chloride (Sodium Chloride 0.9%) 1,000 mls @ 100 mls/hr IV .Q10H [facility] Last Admin: 09/17/18 09:20 Dose: 100 mls/hr Ampicillin Sodium/Sulbactam (Sodium 3 gm/ Sodium Chloride) 100 mls @ 200 mls/ hr IVPB Q6 [facility] PRN Reason: Protocol Last Admin: 05/27/18 05:04 Dose: 200 mls/hr Potassium Chloride (Potassium Chloride 20 Meq/100 Ml) 20 meq in 100 mls @ 50 mls/hr IVPB ONCE ONE Stop: 05/27/18 12:19 Lorazepam (Ativan) 1 mg IV Q4 PRN; Protocol PRN Reason: Seizure activity Last Admin: 05/23/18 01:28 Dose: 1 mg Morphine Sulfate (Morphine) 2 mg IVP Q4H PRN PRN Reason: Pain, moderate (4-7) Last Admin: 05/25/18 22:46 Dose: 2 mg Morphine Sulfate (Morphine) 4 mg IVP Q4H PRN PRN Reason: Pain, severe (8-10) Last Admin: 05/24/18 04:46 Dose: 4 mg Pantoprazole Sodium (Protonix Inj) 40 mg IVP DAILY [facility] Last Admin: 05/27/18 09:19 Dose: 40 mg - Labs Labs: 05/27/18 06:30 05/27/18 06:30 PT 15.6 SECONDS (9.4-12.5) H 05/18/18 06:45 INR 1.35 05/18/18 06:45 - Constitutional Appears: No Acute Distress - Head Exam Head Exam: NORMAL INSPECTION - Eye Exam Eye Exam: Normal appearance Pupil Exam: NORMAL ACCOMODATION - ENT Exam ENT Exam: Mucous Membranes Moist Additional comments: tracheostomy in place - Respiratory Exam Respiratory Exam: Decreased Breath Sounds. absent: Rales, Rhonchi, Wheezes - Cardiovascular Exam Cardiovascular Exam: RRR, +S1, +S2. absent: Gallop, Rubs, Murmur - GI/Abdominal Exam GI & Abdominal Exam: Soft. 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 Biopsy of mass showed highly atypical cells suspicious for SCC. PNA noted on recent CXR, patient started on Unasyn. Plan: - Follow up with oncology on discharge; patient may return to his previous oncologist, Dr. Ede [place], or f/u with Dr. Alexandra - Radiation oncology consulted - re-irradiation/chemotherapy vs palliative chemotherapy depending on original radiation segura - Recommend outpatient PET/CT - F/u MRI or orbit, face, and neck - Biopsy of mass showed highly atypical cells suspicious for SCC - S/p open g-tube - CXR showed KATHERINE PNA, abx per primary - Further recs per GI, ENT, surgery, and primary Case reviewed and discussed with attending. Jose Guerra DO PGY2
--- NOTE | 2018-05-27 13:12 | MRI ---
Date of service: 05/26/2018 PROCEDURE: MRI NECK WITHOUT CONTRAST HISTORY: pharyngeal mass, assess degree of invasion COMPARISON: CT scan 05/17/2018 TECHNIQUE: Multiplanar multisequence MR images of the neck were obtained without gadolinium enhancement. FINDINGS: NASOPHARYNX: Unremarkable. SUPRAHYOID NECK: Unremarkable oropharynx, oral cavity, parapharyngeal space and retropharyngeal space. INFRAHYOID NECK: There is a large mass at the site of laryngectomy above the tracheostomy. This measures 3.3 cm AP x 4.9 cm wide and 5.7 cm height. The mass has well-circumscribed borders with no obvious invasion of adjacent fat planes. MASS: As above GLANDS: Parotid and submandibular glands unremarkable. Normal size thyroid gland, without nodule. LYMPH NODES: Normal. No lymphadenopathy. VASCULAR STRUCTURES: Unremarkable. OTHER FINDINGS: None. IMPRESSION: There is a large mass at the site of laryngectomy above the tracheostomy. This measures 3.3 cm AP x 4.9 cm wide and 5.7 cm height. The mass has well-circumscribed borders with no obvious invasion of adjacent fat planes.
[2018-05-27 16:03] LABS: HEMOGLOBIN 8.7 g/dL (14.0-18.0); MEAN CELL VOLUME 87.6 fl (80.0-105.0); MEAN CORPUSCULAR HEMOGLOBIN 29.2 pg (25.0-35.0); MEAN CORPUSCULAR HGB CONC 33.3 g/dl (31.0-37.0); RBC 2.98 10^6/uL (3.5-6.1); WHITE BLOOD COUNT 16.4 10^3/ul (4.5-11.0)
[2018-05-27 16:14] LABS: ALB/GLOB RATIO 0.8 (1.1-1.8); ALBUMIN 2.8 g/dL (3.0-4.8); ALT/SGPT 33 U/L (7-56); AST/SGOT 39 U/L (17-59); BLOOD UREA NITROGEN 8 mg/dL (7-21); CALCIUM 8.8 mg/dL (8.4-10.5); GFR NON-AFRICAN AMERICAN > 60
--- NOTE | 2018-05-27 19:15 | CP.PCM.PN ---
<Ochoa Matute - Last Filed: 05/27/18 19:43> Subjective - Date & Time of Evaluation Date of Evaluation: 05/27/18 Time of Evaluation: 07:00 - Subjective Subjective: Pt seen and examined at bedside this morning. Pt denies chest pain, SOB, nausea , vomiting, or abdominal pain. Objective - Vital Signs/Intake and Output Vital Signs (last 24 hours): Temp Pulse Resp BP Pulse Ox 99.5 F 97 H 20 118/75 92 L 05/27/18 12:00 05/27/18 18:00 05/27/18 12:00 05/27/18 12:00 05/27/18 06:00 Intake and Output: 05/27/18 05/28/18 18:59 06:59 Output Total 200 Balance -200 - Medications Medications: Current Medications Acetaminophen (Tylenol 650 Mg Supp) 650 mg RC Q4 PRN PRN Reason: mild pain (1-3);Fever >100.4 F Last Admin: 05/26/18 11:26 Dose: 650 mg Albuterol/Ipratropium (Duoneb 3 Mg/0.5 Mg (3 Ml) Ud) 3 ml IH TIDRESP [facility] Last Admin: 05/27/18 13:29 Dose: 3 ml Heparin Sodium (Porcine) (Heparin) 5,000 units SC Q8 [facility] PRN Reason: Protocol Last Admin: 05/27/18 14:53 Dose: 5,000 units Phenytoin 100 mg/ Sodium (Chloride) 52 mls @ 104 mls/hr IVPB Q8 [facility] Last Admin: 05/27/18 14:53 Dose: 104 mls/hr Levetiracetam (Keppra 500mg Ivpb) 500 mg in 100 mls @ 400 mls/hr IVPB Q12 [facility] Last Admin: 05/27/18 09:19 Dose: 400 mls/hr Sodium Chloride (Sodium Chloride 0.9%) 1,000 mls @ 100 mls/hr IV .Q10H [facility] Last Admin: 05/27/18 16:55 Dose: 100 mls/hr Ampicillin Sodium/Sulbactam (Sodium 3 gm/ Sodium Chloride) 100 mls @ 200 mls/ hr IVPB Q6 [facility] PRN Reason: Protocol Last Admin: 05/27/18 17:00 Dose: 200 mls/hr Lorazepam (Ativan) 1 mg IV Q4 PRN; Protocol PRN Reason: Seizure activity Last Admin: 05/23/18 01:28 Dose: 1 mg Metoclopramide HCl (Reglan) 5 mg IVP ACHS [facility] Last Admin: 05/27/18 16:58 Dose: 5 mg Pantoprazole Sodium (Protonix Inj) 40 mg IVP DAILY [facility] Last Admin: 05/27/18 09:19 Dose: 40 mg - Labs Labs: 05/27/18 15:59 05/27/18 15:59 PT 15.6 SECONDS (9.4-12.5) H 05/18/18 06:45 INR 1.35 05/18/18 06:45 - Head Exam Head Exam: ATRAUMATIC, NORMOCEPHALIC - Respiratory Exam Respiratory Exam: Wheezes, NORMAL BREATHING PATTERN. absent: Accessory Muscle Use - Cardiovascular Exam Cardiovascular Exam: REGULAR RHYTHM, RRR, +S1, +S2 - GI/Abdominal Exam GI & Abdominal Exam: Soft, Normal Bowel Sounds Additional comments: G tube in place, bandages are clean, dry and intact - Extremities Exam Extremities Exam: absent: Calf Tenderness, Pedal Edema - Neurological Exam Neurological Exam: Awake, Oriented x3 - Skin Skin Exam: Dry, Normal Color, Warm Assessment and Plan - Assessment and Plan (Free Text) Assessment: Pt is a 73 yo male with a PMH significant for seizure and throat cancer s/p tracheostomy who presented with complaints of dysphagia. Plan: Dysphagia - MRI Orbit, Face and Neck: there is a large mass at the site of laryngectomy above the tracheostomy. This measures 3.3cm AP x 4.9cm wide and 5.7cm in height. The mass is well-circumscribed borders with no obvious invasion of adjacent fat planes. - CT Neck showed oropharyngeal mass concerning for malignancy - EGD Biopsy: Suspicious for SCC - Keep HOB elevated, Aspiration precautions - Tube feeds: Jevity 1.2 (10ml/10ml/30ml) - Started Reglan 5mg IVP ACHS - Palliative Care, GI following - Hematology/Oncology: recommends pt follow up with out pt onc on discharge with Dr Ede Cleveland or he may follow up with Dr Alexandra. Recommend out pt PET/ CT. - Surgery following - Radiation Oncology: re-irradiation/ chemo vs palliative chemo depending on original radiation segura Left upper lobe pneumonia - aspiration pneumonia - CXR: KATHERINE infiltrate - Continue Unasyn 3gm Q6 - Procal: 0.23, WBC: 16.4 History of Seizures - Continue Levitiracetam 500mg IVPB Q12 - continue Phenytoin 100mg IVBP q8 - continue ativan 1mg IV q4 PRN - Seizure precautions History of COPD - Duonebs TID Ppx - Protonix - Heparin Pt seen, examined, assesment, and plan discussed with Dr Lang. Ochoa Matute PGY1 Internal Medicine Resident <Dejah Lang - Last Filed: 06/01/18 17:51> Objective - Vital Signs/Intake and Output Vital Signs (last 24 hours): Temp Pulse Resp BP Pulse Ox 98.8 F 90 18 107/60 99 06/01/18 14:00 06/01/18 14:00 06/01/18 14:00 06/01/18 14:00 06/01/18 14:00 - Medications Medications: Current Medications Acetaminophen (Tylenol 650 Mg Supp) 650 mg RC Q4 PRN PRN Reason: mild pain (1-3);Fever >100.4 F Last Admin: 05/29/18 23:55 Dose: 650 mg Albuterol/Ipratropium (Duoneb 3 Mg/0.5 Mg (3 Ml) Ud) 3 ml IH TIDRESP [facility] Last Admin: 06/01/18 13:08 Dose: 3 ml Levetiracetam (Keppra 500mg Ivpb) 500 mg in 100 mls @ 400 mls/hr IVPB Q12 [facility] Last Admin: 06/01/18 10:52 Dose: 400 mls/hr Sodium Chloride (Sodium Chloride 0.9%) 1,000 mls @ 70 mls/hr IV .[id number] [facility] Last Admin: 06/01/18 10:52 Dose: 70 mls/hr Lorazepam (Ativan) 1 mg IV Q4 PRN; Protocol PRN Reason: Seizure activity Last Admin: 05/23/18 01:28 Dose: 1 mg Metoclopramide HCl (Reglan) 5 mg IVP ACHS [facility] Last Admin: 06/01/18 17:17 Dose: 5 mg Pantoprazole Sodium (Protonix Susp) 40 mg GT DAILY [facility] Last Admin: 06/01/18 10:52 Dose: 40 mg Phenytoin (Dilantin) 100 mg PO Q8 [facility] Last Admin: 06/01/18 13:40 Dose: 100 mg - Labs Labs: 06/01/18 08:30 06/01/18 08:30 PT 15.6 SECONDS (9.4-12.5) H 05/18/18 06:45 INR 1.35 05/18/18 06:45 Attending/Attestation - Attestation I have personally seen and examined this patient.: Yes I have fully participated in the care of the patient.: Yes I have reviewed all pertinent clinical information, including history, physical exam and plan: Yes Notes (Text): 06/01/18 17:49 Medical record note made by the resident after discussion with my direction and input after the patient was personally seen and examined by me. I have reviewed the chart and agree that the record accurately reflects by personal performance of the history, physical exam, data review, and medical decision-making, in the course for the patient. I have also personally directed the plan of care. 73 year old male with PMH of seizure and throat cancer s/p tracheostomy who presented with complaint of dysphagia. CT neck showed oropharyngeal mass concerning for malignancy. Patient was seen by ENT, GI, surgery and hematology / oncology. 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 Patient is SP G-tube , tolerating feeding..He is SP treatment for Aspiration Pneumonia. MRI or orbit, face, and neck showed large mass at laryngectomy site. 3.3 x 4.9 x 5.7cm. Well circumscribed borders with no invasion. Plan for outpatient PET scan and radiation therapy.PT recommends CLEMENTINA .Anemia is stable . Patient is awaiting TCU placement. Prognosis is guarded. Management plan was discussed in detail with patient. Education was provided. 06/01/18 17:50
[2018-05-28] MEDS: Sodium Chloride 0.9% 1,000 ML IV SCH ×3 (05:32→10:47)
[2018-05-28] MEDS: Albuterol-Ipratrop 3 mg / 0.5 (3 ml) UD IH SCH ×3 (07:58→19:34)
[2018-05-28 10:15] LABS: BASO # 0.02 K/mm3 (0.0-2.0); BASO % 0.2 % (0.0-3.0); EOS # 0.3 (0.0-0.7); EOS % 2.5 % (1.5-5.0); GRAN # 10.98 (1.4-6.5); GRAN % 82.3 % (50.0-68.0); HEMOGLOBIN 8.6 g/dL (14.0-18.0); LYMPH % 7.5 % (22.0-35.0); MEAN CELL VOLUME 87.8 fl (80.0-105.0); MEAN CORPUSCULAR HEMOGLOBIN 29.3 pg (25.0-35.0); MEAN CORPUSCULAR HGB CONC 33.3 g/dl (31.0-37.0); MEAN PLATELET VOLUME 9.7 fl (7.0-11.0); MONO % 7.5 % (1.0-6.0); RBC 2.94 10^6/uL (3.5-6.1); WHITE BLOOD COUNT 13.3 10^3/ul (4.5-11.0)
[2018-05-28 10:36] LABS: ALB/GLOB RATIO 0.8 (1.1-1.8); ALBUMIN 2.8 g/dL (3.0-4.8); ALT/SGPT 39 U/L (7-56); AST/SGOT 41 U/L (17-59); BLOOD UREA NITROGEN 9 mg/dL (7-21); CALCIUM 8.6 mg/dL (8.4-10.5); GFR NON-AFRICAN AMERICAN > 60
[2018-05-28] MEDS: levETIRAcetam 500mg IVPB 500 MG/100 ML BAG IVPB SCH ×2 (10:41→21:47)
--- NOTE | 2018-05-28 12:20 | CP.PCM.PN ---
Subjective - Date & Time of Evaluation Date of Evaluation: 05/28/18 Time of Evaluation: 12:17 - Subjective Subjective: Heme/Onc Progress Note for Dr. Alexandra -- Jose Guerra DO PGY2 Patient seen and examined at bedside. No acute overnight events. Patient offers no complaints at this time. Will f/u with oncology on discharge. Patient denied CP, SOB, n/v/d, abdominal pain, fever, chills, STARR, or dizziness. Objective - Vital Signs/Intake and Output Vital Signs (last 24 hours): Temp Pulse Resp BP Pulse Ox 98.9 F 78 18 126/67 97 05/28/18 11:58 05/28/18 11:58 05/28/18 11:58 05/28/18 11:58 05/28/18 06:00 Intake and Output: 05/28/18 05/28/18 06:59 18:59 Intake Total 1500 Output Total 900 Balance 600 - Medications Medications: Current Medications Acetaminophen (Tylenol 650 Mg Supp) 650 mg RC Q4 PRN PRN Reason: mild pain (1-3);Fever >100.4 F Last Admin: 05/26/18 11:26 Dose: 650 mg Albuterol/Ipratropium (Duoneb 3 Mg/0.5 Mg (3 Ml) Ud) 3 ml IH TIDRESP [facility] Last Admin: 05/28/18 07:58 Dose: 3 ml Heparin Sodium (Porcine) (Heparin) 5,000 units SC Q8 [facility] PRN Reason: Protocol Last Admin: 05/28/18 05:30 Dose: 5,000 units Phenytoin 100 mg/ Sodium (Chloride) 52 mls @ 104 mls/hr IVPB Q8 [facility] Last Admin: 05/28/18 05:41 Dose: 104 mls/hr Levetiracetam (Keppra 500mg Ivpb) 500 mg in 100 mls @ 400 mls/hr IVPB Q12 [facility] Last Admin: 05/28/18 10:41 Dose: 400 mls/hr Sodium Chloride (Sodium Chloride 0.9%) 1,000 mls @ 100 mls/hr IV .Q10H [facility] Last Admin: 05/28/18 10:47 Dose: 100 mls/hr Ampicillin Sodium/Sulbactam (Sodium 3 gm/ Sodium Chloride) 100 mls @ 200 mls/ hr IVPB Q6 [facility] PRN Reason: Protocol Last Admin: 05/28/18 05:29 Dose: 200 mls/hr Lorazepam (Ativan) 1 mg IV Q4 PRN; Protocol PRN Reason: Seizure activity Last Admin: 05/23/18 01:28 Dose: 1 mg Metoclopramide HCl (Reglan) 5 mg IVP ACHS [facility] Last Admin: 05/28/18 08:02 Dose: 5 mg Pantoprazole Sodium (Protonix Inj) 40 mg IVP DAILY [facility] Last Admin: 05/28/18 10:41 Dose: 40 mg - Labs Labs: 05/28/18 10:00 05/28/18 10:00 PT 15.6 SECONDS (9.4-12.5) H 05/18/18 06:45 INR 1.35 05/18/18 06:45 - Constitutional Appears: No Acute Distress - Head Exam Head Exam: NORMAL INSPECTION - Eye Exam Eye Exam: Normal appearance Pupil Exam: NORMAL ACCOMODATION - ENT Exam Additional comments: tracheostomy in place - Respiratory Exam Respiratory Exam: Clear to Ausculation Bilateral. absent: Rales, Rhonchi, Wheezes - Cardiovascular Exam Cardiovascular Exam: RRR, +S1, +S2. absent: Gallop, Rubs, Murmur - GI/Abdominal Exam GI & Abdominal Exam: Soft. 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 Biopsy of mass showed highly atypical cells suspicious for SCC. PNA noted on recent CXR, patient continued on abx. Plan: - Follow up with oncology on discharge; patient may return to his previous oncologist, Dr. Ede Cleveland, or f/u with Dr. Alexandra - Radiation oncology consulted - re-irradiation/chemotherapy vs palliative chemotherapy depending on original radiation segura - Recommend outpatient PET/CT - MRI or orbit, face, and neck showed large mass at laryngectomy site. 3.3 x 4.9 x 5.7cm. Well circumscribed borders with no invasion. - Biopsy of mass showed highly atypical cells suspicious for SCC - S/p open g-tube - CXR showed KATHERINE PNA, abx per primary - Further recs per GI, ENT, surgery, and primary Case reviewed and discussed with attending. Jose Guerra DO PGY2
--- NOTE | 2018-05-28 16:48 | CP.PCM.PN ---
<Ochoa Matute - Last Filed: 05/28/18 16:56> Subjective - Date & Time of Evaluation Date of Evaluation: 05/28/18 Time of Evaluation: 07:00 - Subjective Subjective: Pt seen and examined. Pt has no new complaints at this time. Denies SOB, chest pain, or abdominal pain at G tube site. Objective - Vital Signs/Intake and Output Vital Signs (last 24 hours): Temp Pulse Resp BP Pulse Ox 98.9 F 91 H 18 126/67 97 05/28/18 11:58 05/28/18 14:00 05/28/18 11:58 05/28/18 11:58 05/28/18 06:00 Intake and Output: 05/28/18 05/28/18 06:59 18:59 Intake Total 1500 Output Total 900 Balance 600 - Medications Medications: Current Medications Acetaminophen (Tylenol 650 Mg Supp) 650 mg RC Q4 PRN PRN Reason: mild pain (1-3);Fever >100.4 F Last Admin: 05/26/18 11:26 Dose: 650 mg Albuterol/Ipratropium (Duoneb 3 Mg/0.5 Mg (3 Ml) Ud) 3 ml IH TIDRESP [facility] Last Admin: 05/28/18 13:53 Dose: 3 ml Heparin Sodium (Porcine) (Heparin) 5,000 units SC Q8 [facility] PRN Reason: Protocol Last Admin: 05/28/18 13:56 Dose: 5,000 units Phenytoin 100 mg/ Sodium (Chloride) 52 mls @ 104 mls/hr IVPB Q8 [facility] Last Admin: 05/28/18 14:26 Dose: 104 mls/hr Levetiracetam (Keppra 500mg Ivpb) 500 mg in 100 mls @ 400 mls/hr IVPB Q12 [facility] Last Admin: 05/28/18 10:41 Dose: 400 mls/hr Sodium Chloride (Sodium Chloride 0.9%) 1,000 mls @ 100 mls/hr IV .Q10H [facility] Last Admin: 05/28/18 10:47 Dose: 100 mls/hr Ampicillin Sodium/Sulbactam (Sodium 3 gm/ Sodium Chloride) 100 mls @ 200 mls/ hr IVPB Q6 [facility] PRN Reason: Protocol Last Admin: 05/28/18 13:54 Dose: 200 mls/hr Lorazepam (Ativan) 1 mg IV Q4 PRN; Protocol PRN Reason: Seizure activity Last Admin: 05/23/18 01:28 Dose: 1 mg Metoclopramide HCl (Reglan) 5 mg IVP ACHS [facility] Last Admin: 05/28/18 13:50 Dose: Not Given Pantoprazole Sodium (Protonix Inj) 40 mg IVP DAILY [facility] Last Admin: 05/28/18 10:41 Dose: 40 mg - Labs Labs: 05/28/18 10:00 05/28/18 10:00 PT 15.6 SECONDS (9.4-12.5) H 05/18/18 06:45 INR 1.35 05/18/18 06:45 - Constitutional Appears: No Acute Distress - Head Exam Head Exam: ATRAUMATIC, NORMOCEPHALIC - ENT Exam ENT Exam: Mucous Membranes Moist - Respiratory Exam Respiratory Exam: Clear to Ausculation Bilateral, NORMAL BREATHING PATTERN. absent: Accessory Muscle Use, Wheezes, Respiratory Distress, Stridor - Cardiovascular Exam Cardiovascular Exam: REGULAR RHYTHM, RRR, +S1, +S2 - GI/Abdominal Exam GI & Abdominal Exam: Soft, Normal Bowel Sounds. absent: Tenderness - Extremities Exam Extremities Exam: absent: Pedal Edema, Tenderness - Neurological Exam Neurological Exam: Alert, Awake, Oriented x3 - Psychiatric Exam Psychiatric exam: Normal Affect, Normal Mood - Skin Skin Exam: Dry, Normal Color, Warm Assessment and Plan - Assessment and Plan (Free Text) Assessment: Pt is a 73 yo male with a PMH significant for seizure and throat cancer s/p tracheostomy who presented with complaints of dysphagia. Plan: Dysphagia - Reglan 5mg IVP ACHS - Keep HOB elevated, Aspiration precautions - MRI Orbit, Face and Neck: there is a large mass at the site of laryngectomy above the tracheostomy. 3.3cm AP x 4.9cm wide and 5.7cm in height. Well- circumscribed borders, no obvious invasion of adjacent fat planes. - EGD Biopsy: Suspicious for SCC - Tube feeds: Jevity 1.2 (10ml/10ml/30ml), trial of bolus feeds - Hematology/Oncology: follow up out pt onc on discharge with Dr Ede Cleveland or Dr Alexandra. Recommend out pt PET/ CT. - Radiation Oncology: re-irradiation/ chemo vs palliative chemo depending on original radiation segura - Palliative Care, GI, Surgery following - NS 100ml/hr Left upper lobe pneumonia, possible aspiration - Continue Unasyn 3gm Q6 - WBC: 13.3 History of Seizures - Seizure precautions - Levitiracetam 500mg IVPB Q12, Phenytoin 100mg IVBP q8, ativan 1mg IV q4 PRN History of COPD - Duonebs TID Ppx - Protonix - Heparin Pt seen, examined, assessment, and plan discussed with Dr Lang. Ochoa Matute PGY1 <Dejah Lang - Last Filed: 06/01/18 17:53> Objective - Vital Signs/Intake and Output Vital Signs (last 24 hours): Temp Pulse Resp BP Pulse Ox 98.8 F 90 18 107/60 99 06/01/18 14:00 06/01/18 14:00 06/01/18 14:00 06/01/18 14:00 06/01/18 14:00 - Medications Medications: Current Medications Acetaminophen (Tylenol 650 Mg Supp) 650 mg RC Q4 PRN PRN Reason: mild pain (1-3);Fever >100.4 F Last Admin: 05/29/18 23:55 Dose: 650 mg Albuterol/Ipratropium (Duoneb 3 Mg/0.5 Mg (3 Ml) Ud) 3 ml IH TIDRESP [facility] Last Admin: 06/01/18 13:08 Dose: 3 ml Levetiracetam (Keppra 500mg Ivpb) 500 mg in 100 mls @ 400 mls/hr IVPB Q12 [facility] Last Admin: 06/01/18 10:52 Dose: 400 mls/hr Sodium Chloride (Sodium Chloride 0.9%) 1,000 mls @ 70 mls/hr IV .[id number] [facility] Last Admin: 06/01/18 10:52 Dose: 70 mls/hr Lorazepam (Ativan) 1 mg IV Q4 PRN; Protocol PRN Reason: Seizure activity Last Admin: 05/23/18 01:28 Dose: 1 mg Metoclopramide HCl (Reglan) 5 mg IVP ACHS [facility] Last Admin: 06/01/18 17:17 Dose: 5 mg Pantoprazole Sodium (Protonix Susp) 40 mg GT DAILY [facility] Last Admin: 06/01/18 10:52 Dose: 40 mg Phenytoin (Dilantin) 100 mg PO Q8 [facility] Last Admin: 06/01/18 13:40 Dose: 100 mg - Labs Labs: 06/01/18 08:30 06/01/18 08:30 PT 15.6 SECONDS (9.4-12.5) H 05/18/18 06:45 INR 1.35 05/18/18 06:45 Attending/Attestation - Attestation I have personally seen and examined this patient.: Yes I have fully participated in the care of the patient.: Yes I have reviewed all pertinent clinical information, including history, physical exam and plan: Yes Notes (Text): 06/01/18 17:53 Medical record note made by the resident after discussion with my direction and input after the patient was personally seen and examined by me. I have reviewed the chart and agree that the record accurately reflects by personal performance of the history, physical exam, data review, and medical decision-making, in the course for the patient. I have also personally directed the plan of care.
[2018-05-29] MEDS: Albuterol-Ipratrop 3 mg / 0.5 (3 ml) UD IH SCH ×3 (07:07→19:53)
[2018-05-29 07:24] LABS: BASO # 0.02 K/mm3 (0.0-2.0); BASO % 0.2 % (0.0-3.0); EOS # 0.2 (0.0-0.7); GRAN # 9.01 (1.4-6.5); GRAN % 80.6 % (50.0-68.0); HEMOGLOBIN 7.7 g/dL (14.0-18.0); LYMPH # 1.2 (1.2-3.4); LYMPH % 10.3 % (22.0-35.0); MEAN CELL VOLUME 88.6 fl (80.0-105.0); MEAN CORPUSCULAR HEMOGLOBIN 29.2 pg (25.0-35.0); MEAN CORPUSCULAR HGB CONC 32.9 g/dl (31.0-37.0); MEAN PLATELET VOLUME 9.6 fl (7.0-11.0); MONO # 0.8 (0.1-0.6); MONO % 6.9 % (1.0-6.0); RBC 2.64 10^6/uL (3.5-6.1); RED CELL DISTRIBUTION WIDTH 14.4 % (11.5-14.5); WHITE BLOOD COUNT 11.2 10^3/ul (4.5-11.0)
[2018-05-29 07:43] LABS: ALB/GLOB RATIO 0.8 (1.1-1.8); ALBUMIN 2.7 g/dL (3.0-4.8); ALT/SGPT 39 U/L (7-56); AST/SGOT 43 U/L (17-59); BLOOD UREA NITROGEN 8 mg/dL (7-21); CALCIUM 8.3 mg/dL (8.4-10.5); GFR NON-AFRICAN AMERICAN > 60
[2018-05-29] MEDS: levETIRAcetam 500mg IVPB 500 MG/100 ML BAG IVPB SCH ×2 (09:54→22:01)
[2018-05-29] MEDS: Sodium Chloride 0.9% 1,000 ML IV SCH (09:55)
[2018-05-29] MEDS ORDERED: Potassium Chloride 40 mEq/30 ml LIQ UD PO ONE (10:07)
--- NOTE | 2018-05-29 10:40 | CP.PCM.PN ---
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 He now is admitted with dysphagia and found to have a recurrent mass. We would agree with Dr Alexandra that a PET would be prudent to assess extent of locoregional disease and rule out metastases. We were informed that he will be going to a subacute rehab. If so, he would need a follow up appointment with his radiation oncologist, Emily Stevens to evaluate for the possibility of reirradiation with/ without chemotherapy. Dr Stevens would need to review his old radiation segura and dose if he is going to reirradiate the patient given the overlapping segura. We also noticed incidentally that his H/H has recently been trending downward. I just spoke with the nurse who stated that he is not aware of any hemoptysis, hematuria or hematemesis. She stated that the inpatient team is making rounds, and will be evaluating what is going on. Objective - Vital Signs/Intake and Output Vital Signs (last 24 hours): Temp Pulse Resp BP Pulse Ox 99.6 F 83 20 132/72 100 05/29/18 06:00 05/29/18 06:00 05/29/18 06:00 05/29/18 06:00 05/29/18 06:00 Intake and Output: 05/29/18 05/29/18 06:59 18:59 Intake Total 1912 Output Total 440 Balance 1472 - Medications Medications: Current Medications Acetaminophen (Tylenol 650 Mg Supp) 650 mg RC Q4 PRN PRN Reason: mild pain (1-3);Fever >100.4 F Last Admin: 05/26/18 11:26 Dose: 650 mg Albuterol/Ipratropium (Duoneb 3 Mg/0.5 Mg (3 Ml) Ud) 3 ml IH TIDRESP [facility] Last Admin: 05/29/18 07:07 Dose: 3 ml Heparin Sodium (Porcine) (Heparin) 5,000 units SC Q8 [facility] PRN Reason: Protocol Last Admin: 05/29/18 05:44 Dose: 5,000 units Phenytoin 100 mg/ Sodium (Chloride) 52 mls @ 104 mls/hr IVPB Q8 [facility] Last Admin: 05/29/18 05:44 Dose: 104 mls/hr Levetiracetam (Keppra 500mg Ivpb) 500 mg in 100 mls @ 400 mls/hr IVPB Q12 [facility] Last Admin: 05/29/18 09:54 Dose: 400 mls/hr Sodium Chloride (Sodium Chloride 0.9%) 1,000 mls @ 100 mls/hr IV .Q10H [facility] Last Admin: 05/29/18 09:55 Dose: 100 mls/hr Ampicillin Sodium/Sulbactam (Sodium 3 gm/ Sodium Chloride) 100 mls @ 200 mls/ hr IVPB Q6 [facility] PRN Reason: Protocol Last Admin: 05/29/18 05:44 Dose: 200 mls/hr Potassium Chloride (Potassium Chloride 10 Meq/100 Ml) 10 meq in 100 mls @ 50 mls/hr IVPB Q2H [facility] Stop: 05/29/18 14:14 Lorazepam (Ativan) 1 mg IV Q4 PRN; Protocol PRN Reason: Seizure activity Last Admin: 05/23/18 01:28 Dose: 1 mg Metoclopramide HCl (Reglan) 5 mg IVP ACHS [facility] Last Admin: 05/28/18 21:46 Dose: 5 mg Pantoprazole Sodium (Protonix Inj) 40 mg IVP DAILY [facility] Last Admin: 05/29/18 09:54 Dose: 40 mg - Labs Labs: 05/29/18 06:45 05/29/18 06:45 PT 15.6 SECONDS (9.4-12.5) H 05/18/18 06:45 INR 1.35 05/18/18 06:45
[2018-05-29 11:15] LABS: BASO # 0.01 K/mm3 (0.0-2.0); BASO % 0.1 % (0.0-3.0); EOS # 0.3 (0.0-0.7); EOS % 2.4 % (1.5-5.0); GRAN # 8.88 (1.4-6.5); GRAN % 80.4 % (50.0-68.0); LYMPH % 9.2 % (22.0-35.0); MEAN CORPUSCULAR HEMOGLOBIN 29.3 pg (25.0-35.0); MEAN CORPUSCULAR HGB CONC 32.9 g/dl (31.0-37.0); MEAN PLATELET VOLUME 8.4 fl (7.0-11.0); MONO # 0.9 (0.1-0.6); MONO % 7.9 % (1.0-6.0); RBC 2.73 10^6/uL (3.5-6.1); RED CELL DISTRIBUTION WIDTH 14.3 % (11.5-14.5)
--- NOTE | 2018-05-29 11:27 | CP.PCM.PN ---
Subjective - Date & Time of Evaluation Date of Evaluation: 05/29/18 Time of Evaluation: 11:24 - Subjective Subjective: Heme/Onc Progress Note for Dr. Alexandra -- Jose Guerra DO PGY2 Patient seen and examined at bedside. No acute overnight events. Patient is awaiting placement currently. Patient states that he still feels congested, sinus xray is pending. Patient denied CP, SOB, n/v/d, abdominal pain, fever, chills, STARR, or dizziness. Objective - Vital Signs/Intake and Output Vital Signs (last 24 hours): Temp Pulse Resp BP Pulse Ox 99.6 F 83 20 132/72 100 05/29/18 06:00 05/29/18 06:00 05/29/18 06:00 05/29/18 06:00 05/29/18 06:00 Intake and Output: 05/29/18 05/29/18 06:59 18:59 Intake Total 1912 Output Total 440 Balance 1472 - Medications Medications: Current Medications Acetaminophen (Tylenol 650 Mg Supp) 650 mg RC Q4 PRN PRN Reason: mild pain (1-3);Fever >100.4 F Last Admin: 05/26/18 11:26 Dose: 650 mg Albuterol/Ipratropium (Duoneb 3 Mg/0.5 Mg (3 Ml) Ud) 3 ml IH TIDRESP [facility] Last Admin: 05/29/18 07:07 Dose: 3 ml Heparin Sodium (Porcine) (Heparin) 5,000 units SC Q8 [facility] PRN Reason: Protocol Last Admin: 05/29/18 05:44 Dose: 5,000 units Phenytoin 100 mg/ Sodium (Chloride) 52 mls @ 104 mls/hr IVPB Q8 [facility] Last Admin: 05/29/18 05:44 Dose: 104 mls/hr Levetiracetam (Keppra 500mg Ivpb) 500 mg in 100 mls @ 400 mls/hr IVPB Q12 [facility] Last Admin: 05/29/18 09:54 Dose: 400 mls/hr Sodium Chloride (Sodium Chloride 0.9%) 1,000 mls @ 100 mls/hr IV .Q10H [facility] Last Admin: 05/29/18 09:55 Dose: 100 mls/hr Ampicillin Sodium/Sulbactam (Sodium 3 gm/ Sodium Chloride) 100 mls @ 200 mls/ hr IVPB Q6 [facility] PRN Reason: Protocol Last Admin: 05/29/18 05:44 Dose: 200 mls/hr Potassium Chloride (Potassium Chloride 10 Meq/100 Ml) 10 meq in 100 mls @ 50 mls/hr IVPB Q2H [facility] Stop: 05/29/18 14:14 Lorazepam (Ativan) 1 mg IV Q4 PRN; Protocol PRN Reason: Seizure activity Last Admin: 05/23/18 01:28 Dose: 1 mg Metoclopramide HCl (Reglan) 5 mg IVP ACHS [facility] Last Admin: 05/28/18 21:46 Dose: 5 mg Pantoprazole Sodium (Protonix Inj) 40 mg IVP DAILY [facility] Last Admin: 05/29/18 09:54 Dose: 40 mg - Labs Labs: 05/29/18 11:00 05/29/18 06:45 PT 15.6 SECONDS (9.4-12.5) H 05/18/18 06:45 INR 1.35 05/18/18 06:45 - Constitutional Appears: No Acute Distress - Head Exam Head Exam: NORMAL INSPECTION - Eye Exam Eye Exam: Normal appearance - ENT Exam ENT Exam: Mucous Membranes Moist - Neck Exam Additional comments: tracheostomy tube in place - Respiratory Exam Respiratory Exam: Clear to Ausculation Bilateral. absent: Rales, Rhonchi, Wheezes - Cardiovascular Exam Cardiovascular Exam: RRR. absent: Gallop, Rubs, Murmur - GI/Abdominal Exam GI & Abdominal Exam: Soft. absent: Distended, Guarding, Tenderness, Rebound Additional comments: g-tube in place - Extremities Exam Extremities Exam: Normal Inspection - Back Exam Back Exam: NORMAL INSPECTION - Neurological Exam Neurological Exam: Alert, Awake, Oriented x3 - Psychiatric Exam Psychiatric exam: Normal Affect, Normal Mood - Skin Skin Exam: Dry, Intact, Normal Color, Warm Assessment and Plan - Assessment and Plan (Free Text) Assessment: 73 yo M with PMHx of laryngeal cancer (Dx 2012) s/p largynectomy, concurrent chemo/XRT s/p tracheostomy currently admitted with progressive dysphagia and was subsequently found to have a large soft tissue mass on CT. Biopsy of mass showed highly atypical cells suspicious for SCC. PNA noted on recent CXR, patient continued on abx. Plan: - Sinus xray pending - Follow up with oncology and rad-onc on discharge; will be evaluated for re- irradiation - Radiation oncology consulted - re-irradiation/chemotherapy vs palliative chemotherapy depending on original radiation segura - Recommend outpatient PET/CT to determine if metastasis is present - MRI or orbit, face, and neck showed large mass at laryngectomy site. 3.3 x 4.9 x 5.7cm. Well circumscribed borders with no invasion. - Biopsy of mass showed highly atypical cells suspicious for SCC - S/p open g-tube - CXR showed KATHERINE PNA, abx per primary - Further recs per GI, ENT, surgery, and primary Case reviewed and discussed with attending. Jose Guerra DO PGY2
--- NOTE | 2018-05-29 12:29 | RAD ---
Date of service: 05/29/2018 PROCEDURE: Sinuses four views HISTORY: congestion COMPARISON: TECHNIQUE: Four views FINDINGS: The paranasal sinuses are well aerated. There is no mucosal thickening or fluid levels. IMPRESSION: Negative study
--- NOTE | 2018-05-29 14:54 | CP.PCM.PN ---
<Ochoa Matute - Last Filed: 05/29/18 16:20> Subjective - Date & Time of Evaluation Date of Evaluation: 05/29/18 Time of Evaluation: 07:00 - Subjective Subjective: Pt seen and examined. Pt denies chest pain, SOB. Pt reports having the hiccups, no other complaints. Objective - Vital Signs/Intake and Output Vital Signs (last 24 hours): Temp Pulse Resp BP Pulse Ox 98.9 F 80 18 136/71 100 05/29/18 12:00 05/29/18 12:00 05/29/18 12:00 05/29/18 12:00 05/29/18 06:00 Intake and Output: 05/29/18 05/29/18 06:59 18:59 Intake Total 1912 Output Total 440 Balance 1472 - Medications Medications: Current Medications Acetaminophen (Tylenol 650 Mg Supp) 650 mg RC Q4 PRN PRN Reason: mild pain (1-3);Fever >100.4 F Last Admin: 05/26/18 11:26 Dose: 650 mg Albuterol/Ipratropium (Duoneb 3 Mg/0.5 Mg (3 Ml) Ud) 3 ml IH TIDRESP [facility] Last Admin: 05/29/18 13:29 Dose: 3 ml Heparin Sodium (Porcine) (Heparin) 5,000 units SC Q8 [facility] PRN Reason: Protocol Last Admin: 05/29/18 14:36 Dose: 5,000 units Phenytoin 100 mg/ Sodium (Chloride) 52 mls @ 104 mls/hr IVPB Q8 [facility] Last Admin: 05/29/18 14:33 Dose: 104 mls/hr Levetiracetam (Keppra 500mg Ivpb) 500 mg in 100 mls @ 400 mls/hr IVPB Q12 [facility] Last Admin: 05/29/18 09:54 Dose: 400 mls/hr Sodium Chloride (Sodium Chloride 0.9%) 1,000 mls @ 100 mls/hr IV .Q10H [facility] Last Admin: 05/29/18 09:55 Dose: 100 mls/hr Ampicillin Sodium/Sulbactam (Sodium 3 gm/ Sodium Chloride) 100 mls @ 200 mls/ hr IVPB Q6 [facility] PRN Reason: Protocol Last Admin: 05/29/18 12:01 Dose: 200 mls/hr Lorazepam (Ativan) 1 mg IV Q4 PRN; Protocol PRN Reason: Seizure activity Last Admin: 05/23/18 01:28 Dose: 1 mg Metoclopramide HCl (Reglan) 5 mg IVP ACHS [facility] Last Admin: 05/29/18 12:06 Dose: 5 mg Pantoprazole Sodium (Protonix Inj) 40 mg IVP DAILY [facility] Last Admin: 05/29/18 09:54 Dose: 40 mg - Labs Labs: 05/29/18 11:00 05/29/18 06:45 PT 15.6 SECONDS (9.4-12.5) H 05/18/18 06:45 INR 1.35 05/18/18 06:45 - Constitutional Appears: No Acute Distress - Head Exam Head Exam: ATRAUMATIC, NORMOCEPHALIC - Respiratory Exam Respiratory Exam: Clear to Ausculation Bilateral, NORMAL BREATHING PATTERN. absent: Accessory Muscle Use - Cardiovascular Exam Cardiovascular Exam: RRR, +S1, +S2 - GI/Abdominal Exam GI & Abdominal Exam: Soft, Normal Bowel Sounds - Neurological Exam Neurological Exam: Alert, Awake, Oriented x3 - Psychiatric Exam Psychiatric exam: Normal Affect, Normal Mood - Skin Skin Exam: Dry, Normal Color, Warm Assessment and Plan - Assessment and Plan (Free Text) Assessment: Pt is a 73 yo male with a PMH of seizure and throat cancer s/p tracheostomy who presented with complaints of dysphagia. Plan: Dysphagia - Reglan 5mg IVP ACHS - NS 100ml/hr - Aspiration precautions, Keep HOB elevated - MRI Orbit, Face and Neck: mass at the site of laryngectomy above the tracheostomy. Well-circumscribed borders, no obvious invasion of adjacent fat planes. - Tube feeds: Jevity 1.2 (10ml/10ml/30ml), trial of bolus feeds - Radiation Oncology: re-irradiation/ chemo vs palliative chemo depending on original radiation segura - Hematology/Oncology: follow up out pt onc on discharge with Dr Ede Cleveland or Dr Alexandra. Recommend out pt PET/ CT. - Palliative Care, GI, Surgery following - Dietitian consult, appreciate recommendations Anemia - Hgb 8.0 - FOBT pending Left upper lobe pneumonia - Continue Unasyn 3gm Q6 IVPB - WBC: 11 History of Seizures - Phenytoin 100mg IVBP q8, Ativan 1mg IV q4 PRN, Levitiracetam 500mg IVPB Q12 - Seizure precautions History of COPD - Duonebs TID Ppx - Heparin - Protonix Pt seen, examined, assessment, and plan discussed with Dr Lang. Ochoa Matute PGY1 <Dejah Lang - Last Filed: 06/01/18 17:54> Objective - Vital Signs/Intake and Output Vital Signs (last 24 hours): Temp Pulse Resp BP Pulse Ox 98.8 F 90 18 107/60 99 06/01/18 14:00 06/01/18 14:00 06/01/18 14:00 06/01/18 14:00 06/01/18 14:00 - Medications Medications: Current Medications Acetaminophen (Tylenol 650 Mg Supp) 650 mg RC Q4 PRN PRN Reason: mild pain (1-3);Fever >100.4 F Last Admin: 05/29/18 23:55 Dose: 650 mg Albuterol/Ipratropium (Duoneb 3 Mg/0.5 Mg (3 Ml) Ud) 3 ml IH TIDRESP [facility] Last Admin: 06/01/18 13:08 Dose: 3 ml Levetiracetam (Keppra 500mg Ivpb) 500 mg in 100 mls @ 400 mls/hr IVPB Q12 [facility] Last Admin: 06/01/18 10:52 Dose: 400 mls/hr Sodium Chloride (Sodium Chloride 0.9%) 1,000 mls @ 70 mls/hr IV .[id number] [facility] Last Admin: 06/01/18 10:52 Dose: 70 mls/hr Lorazepam (Ativan) 1 mg IV Q4 PRN; Protocol PRN Reason: Seizure activity Last Admin: 05/23/18 01:28 Dose: 1 mg Metoclopramide HCl (Reglan) 5 mg IVP ACHS [facility] Last Admin: 06/01/18 17:17 Dose: 5 mg Pantoprazole Sodium (Protonix Susp) 40 mg GT DAILY [facility] Last Admin: 06/01/18 10:52 Dose: 40 mg Phenytoin (Dilantin) 100 mg PO Q8 [facility] Last Admin: 06/01/18 13:40 Dose: 100 mg - Labs Labs: 06/01/18 08:30 06/01/18 08:30 PT 15.6 SECONDS (9.4-12.5) H 05/18/18 06:45 INR 1.35 05/18/18 06:45 Attending/Attestation - Attestation I have personally seen and examined this patient.: Yes I have fully participated in the care of the patient.: Yes I have reviewed all pertinent clinical information, including history, physical exam and plan: Yes Notes (Text): 06/01/18 17:54 Medical record note made by the resident after discussion with my direction and input after the patient was personally seen and examined by me. I have reviewed the chart and agree that the record accurately reflects by personal performance of the history, physical exam, data review, and medical decision-making, in the course for the patient. I have also personally directed the plan of care.
[2018-05-30] MEDS: Sodium Chloride 0.9% 1,000 ML IV SCH (04:53)
[2018-05-30 07:21] LABS: BASO # 0.02 K/mm3 (0.0-2.0); BASO % 0.2 % (0.0-3.0); EOS # 0.3 (0.0-0.7); EOS % 2.8 % (1.5-5.0); GRAN # 8.45 (1.4-6.5); GRAN % 77.8 % (50.0-68.0); LYMPH % 9.2 % (22.0-35.0); MEAN CORPUSCULAR HEMOGLOBIN 29.3 pg (25.0-35.0); MEAN CORPUSCULAR HGB CONC 32.9 g/dl (31.0-37.0); MEAN PLATELET VOLUME 9.7 fl (7.0-11.0); MONO # 1.1 (0.1-0.6); RBC 2.73 10^6/uL (3.5-6.1); RED CELL DISTRIBUTION WIDTH 14.4 % (11.5-14.5); WHITE BLOOD COUNT 10.9 10^3/ul (4.5-11.0)
[2018-05-30 07:50] LABS: ALB/GLOB RATIO 0.8 (1.1-1.8); ALBUMIN 2.6 g/dL (3.0-4.8); ALT/SGPT 47 U/L (7-56); AST/SGOT 50 U/L (17-59); BLOOD UREA NITROGEN 7 mg/dL (7-21); CALCIUM 8.8 mg/dL (8.4-10.5); GFR NON-AFRICAN AMERICAN > 60
[2018-05-30] MEDS: Albuterol-Ipratrop 3 mg / 0.5 (3 ml) UD IH SCH ×3 (08:00→19:35)
[2018-05-30] MEDS: levETIRAcetam 500mg IVPB 500 MG/100 ML BAG IVPB SCH ×2 (09:28→22:14)
--- NOTE | 2018-05-30 09:45 | CP.PCM.PN ---
<Candelario Guerra - Last Filed: 05/30/18 09:42> Subjective - Date & Time of Evaluation Date of Evaluation: 05/30/18 Time of Evaluation: 09:42 - Subjective Subjective: Heme/Onc Progress Note for Dr. Alexandra -- Jose Guerra DO PGY2 Patient seen and examined at bedside. No acute overnight events. Patient denies CP, SOB, n/v/d, abdominal pain, fever, chills, STARR, or dizziness. Objective - Vital Signs/Intake and Output Vital Signs (last 24 hours): Temp Pulse Resp BP Pulse Ox 98.4 F 83 18 124/77 98 05/30/18 06:00 05/30/18 06:00 05/30/18 06:00 05/30/18 06:00 05/30/18 00:01 Intake and Output: 05/30/18 05/30/18 06:59 18:59 Intake Total 0 Output Total 1100 Balance -1100 - Medications Medications: Current Medications Acetaminophen (Tylenol 650 Mg Supp) 650 mg RC Q4 PRN PRN Reason: mild pain (1-3);Fever >100.4 F Last Admin: 05/29/18 23:55 Dose: 650 mg Albuterol/Ipratropium (Duoneb 3 Mg/0.5 Mg (3 Ml) Ud) 3 ml IH TIDRESP [facility] Last Admin: 05/30/18 08:00 Dose: 3 ml Heparin Sodium (Porcine) (Heparin) 5,000 units SC Q8 NAVEEN PRN Reason: Protocol Last Admin: 05/30/18 05:00 Dose: 5,000 units Phenytoin 100 mg/ Sodium (Chloride) 52 mls @ 104 mls/hr IVPB Q8 [facility] Last Admin: 05/30/18 05:01 Dose: 104 mls/hr Levetiracetam (Keppra 500mg Ivpb) 500 mg in 100 mls @ 400 mls/hr IVPB Q12 [facility] Last Admin: 05/30/18 09:28 Dose: 400 mls/hr Lorazepam (Ativan) 1 mg IV Q4 PRN; Protocol PRN Reason: Seizure activity Last Admin: 05/23/18 01:28 Dose: 1 mg Metoclopramide HCl (Reglan) 5 mg IVP ACHS [facility] Last Admin: 05/30/18 07:41 Dose: 5 mg Pantoprazole Sodium (Protonix Inj) 40 mg IVP DAILY [facility] Last Admin: 05/30/18 09:28 Dose: 40 mg - Labs Labs: 05/30/18 06:30 05/30/18 06:30 PT 15.6 SECONDS (9.4-12.5) H 05/18/18 06:45 INR 1.35 05/18/18 06:45 - Constitutional Appears: No Acute Distress - Head Exam Head Exam: NORMAL INSPECTION - Eye Exam Eye Exam: Normal appearance - ENT Exam ENT Exam: Mucous Membranes Moist - Neck Exam Additional comments: tracheostomy in place - Respiratory Exam Respiratory Exam: Clear to Ausculation Bilateral. absent: Rales, Rhonchi, Wheezes - Cardiovascular Exam Cardiovascular Exam: RRR, +S1, +S2. absent: Gallop, Rubs, Murmur - GI/Abdominal Exam GI & Abdominal Exam: Soft. 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 Biopsy of mass showed highly atypical cells suspicious for SCC. Plan: - Sinus xray negative - Follow up with oncology and rad-onc on discharge; will be evaluated for re- irradiation - Radiation oncology consulted - re-irradiation/chemotherapy vs palliative chemotherapy depending on original radiation segura - Recommend outpatient PET/CT to determine if metastasis is present - MRI or orbit, face, and neck showed large mass at laryngectomy site. 3.3 x 4.9 x 5.7cm. Well circumscribed borders with no invasion. - Biopsy of mass showed highly atypical cells suspicious for SCC - S/p open g-tube - CXR showed KATHERINE PNA, abx per primary, now off - Further recs per GI, ENT, surgery, and primary Case reviewed and discussed with attending. Jose Guerra, DO PGY2 <Chiquis Alexandra P - Last Filed: 06/06/18 23:15> Objective - Vital Signs/Intake and Output Vital Signs (last 24 hours): Temp Pulse Resp BP Pulse Ox 99 F 92 H 20 125/72 99 06/02/18 16:06 06/02/18 16:06 06/02/18 16:06 06/02/18 16:06 06/02/18 16:06 - Labs Labs: 06/02/18 07:30 06/02/18 07:30 PT 15.6 SECONDS (9.4-12.5) H 05/18/18 06:45 INR 1.35 05/18/18 06:45 Attending/Attestation - Attestation I have personally seen and examined this patient.: Yes I have fully participated in the care of the patient.: Yes I have reviewed all pertinent clinical information, including history, physical exam and plan: Yes
--- NOTE | 2018-05-30 13:35 | CP.PCM.PN ---
Subjective - Date & Time of Evaluation Date of Evaluation: 05/30/18 Time of Evaluation: 01:30 - Subjective Subjective: We saw Mr Bermeo again today in follow up. We spoke about reirradiation and options for where he could get treated. He stated that he would be interested if transportation can be facilitated from his subacute rehab. We spoke to the continuous pillowcase cutter about this. We also spoke with his and son as well about reirradiation possibility. We will be requesting radiation records from Dr Stevens's office given the possibility of treatment locally here at [facility]. Objective - Vital Signs/Intake and Output Vital Signs (last 24 hours): Temp Pulse Resp BP Pulse Ox 99 F 77 19 138/80 98 05/30/18 12:00 05/30/18 12:00 05/30/18 12:00 05/30/18 12:00 05/30/18 00:01 Intake and Output: 05/30/18 05/30/18 06:59 18:59 Intake Total 0 Output Total 1100 Balance -1100 - Medications Medications: Current Medications Acetaminophen (Tylenol 650 Mg Supp) 650 mg RC Q4 PRN PRN Reason: mild pain (1-3);Fever >100.4 F Last Admin: 05/29/18 23:55 Dose: 650 mg Albuterol/Ipratropium (Duoneb 3 Mg/0.5 Mg (3 Ml) Ud) 3 ml IH TIDRESP [facility] Last Admin: 05/30/18 13:28 Dose: 3 ml Heparin Sodium (Porcine) (Heparin) 5,000 units SC Q8 [facility]EN PRN Reason: Protocol Last Admin: 05/30/18 05:00 Dose: 5,000 units Phenytoin 100 mg/ Sodium (Chloride) 52 mls @ 104 mls/hr IVPB Q8 [facility] Last Admin: 05/30/18 05:01 Dose: 104 mls/hr Levetiracetam (Keppra 500mg Ivpb) 500 mg in 100 mls @ 400 mls/hr IVPB Q12 [facility] Last Admin: 05/30/18 09:28 Dose: 400 mls/hr Lorazepam (Ativan) 1 mg IV Q4 PRN; Protocol PRN Reason: Seizure activity Last Admin: 05/23/18 01:28 Dose: 1 mg Metoclopramide HCl (Reglan) 5 mg IVP ACHS [facility] Last Admin: 05/30/18 11:59 Dose: 5 mg Pantoprazole Sodium (Protonix Inj) 40 mg IVP DAILY [facility] Last Admin: 05/30/18 09:28 Dose: 40 mg - Labs Labs: 05/30/18 06:30 05/30/18 06:30 PT 15.6 SECONDS (9.4-12.5) H 05/18/18 06:45 INR 1.35 05/18/18 06:45
--- NOTE | 2018-05-30 18:25 | CP.PCM.PN ---
<Ochoa Matute - Last Filed: 05/30/18 18:36> Subjective - Date & Time of Evaluation Date of Evaluation: 05/30/18 Time of Evaluation: 07:00 - Subjective Subjective: Pt seen and examined. Pt has no new complaints at this time. Objective - Vital Signs/Intake and Output Vital Signs (last 24 hours): Temp Pulse Resp BP Pulse Ox 99 F 77 19 138/80 98 05/30/18 12:00 05/30/18 14:00 05/30/18 12:00 05/30/18 12:00 05/30/18 00:01 Intake and Output: 05/30/18 05/30/18 06:59 18:59 Intake Total 0 Output Total 1100 Balance -1100 - Medications Medications: Current Medications Acetaminophen (Tylenol 650 Mg Supp) 650 mg RC Q4 PRN PRN Reason: mild pain (1-3);Fever >100.4 F Last Admin: 05/29/18 23:55 Dose: 650 mg Albuterol/Ipratropium (Duoneb 3 Mg/0.5 Mg (3 Ml) Ud) 3 ml IH TIDRESP [facility] Last Admin: 05/30/18 13:28 Dose: 3 ml Heparin Sodium (Porcine) (Heparin) 5,000 units SC Q8 [facility]AVEEN PRN Reason: Protocol Last Admin: 05/30/18 14:47 Dose: 5,000 units Phenytoin 100 mg/ Sodium (Chloride) 52 mls @ 104 mls/hr IVPB Q8 [facility] Last Admin: 05/30/18 14:47 Dose: 104 mls/hr Levetiracetam (Keppra 500mg Ivpb) 500 mg in 100 mls @ 400 mls/hr IVPB Q12 [facility] Last Admin: 05/30/18 09:28 Dose: 400 mls/hr Lorazepam (Ativan) 1 mg IV Q4 PRN; Protocol PRN Reason: Seizure activity Last Admin: 05/23/18 01:28 Dose: 1 mg Metoclopramide HCl (Reglan) 5 mg IVP ACHS [facility] Last Admin: 05/30/18 16:26 Dose: 5 mg Pantoprazole Sodium (Protonix Inj) 40 mg IVP DAILY [facility] Last Admin: 05/30/18 09:28 Dose: 40 mg - Labs Labs: 05/30/18 06:30 05/30/18 06:30 PT 15.6 SECONDS (9.4-12.5) H 05/18/18 06:45 INR 1.35 05/18/18 06:45 - Constitutional Appears: No Acute Distress - Head Exam Head Exam: ATRAUMATIC, NORMOCEPHALIC - ENT Exam ENT Exam: Mucous Membranes Moist - Respiratory Exam Respiratory Exam: Clear to Ausculation Bilateral, NORMAL BREATHING PATTERN. absent: Wheezes, Respiratory Distress, Stridor - Cardiovascular Exam Cardiovascular Exam: RRR, +S1, +S2 - GI/Abdominal Exam GI & Abdominal Exam: Soft, Normal Bowel Sounds Additional comments: G tube in place - Extremities Exam Extremities Exam: Full ROM, Normal Inspection - Neurological Exam Neurological Exam: Alert, Awake - Skin Skin Exam: Dry, Intact, Warm Assessment and Plan - Assessment and Plan (Free Text) Assessment: Pt is a 73 yo male with a PMH of seizure and throat cancer s/p tracheostomy who presented with complaints of dysphagia. Plan: Dysphagia - Reglan 5mg IVP ACHS - Aspiration precautions, Keep HOB elevated - MRI Orbit, Face and Neck: mass at the site of laryngectomy above the tracheostomy. Well-circumscribed borders, no obvious invasion of adjacent fat planes. - Tube feeds: Jevity 1.2 (10ml/10ml/30ml), bolus feeds - Radiation Oncology: re-irradiation/ chemo vs palliative chemo depending on original radiation segura - Hematology/Oncology: follow up out pt onc on discharge with Dr Ede Cleveland or Dr Alexandra. Recommend out pt PET/ CT. - Palliative Care, GI, Surgery following - Dietitian consult, appreciate recommendations Anemia - Hgb 8.0 - FOBT uncollected History of Seizures - Phenytoin 100mg IVBP q8, Ativan 1mg IV q4 PRN, Levitiracetam 500mg IVPB Q12 - Seizure precautions History of COPD - Duonebs TID Ppx - Heparin - Protonix Pt seen, examined, assessment, and plan discussed with Dr Lang. Ochoa Matute PGY1 <Dejah Lang - Last Filed: 06/01/18 17:55> Objective - Vital Signs/Intake and Output Vital Signs (last 24 hours): Temp Pulse Resp BP Pulse Ox 98.8 F 90 18 107/60 99 06/01/18 14:00 06/01/18 14:00 06/01/18 14:00 06/01/18 14:00 06/01/18 14:00 - Medications Medications: Current Medications Acetaminophen (Tylenol 650 Mg Supp) 650 mg RC Q4 PRN PRN Reason: mild pain (1-3);Fever >100.4 F Last Admin: 05/29/18 23:55 Dose: 650 mg Albuterol/Ipratropium (Duoneb 3 Mg/0.5 Mg (3 Ml) Ud) 3 ml IH TIDRESP [facility] Last Admin: 06/01/18 13:08 Dose: 3 ml Levetiracetam (Keppra 500mg Ivpb) 500 mg in 100 mls @ 400 mls/hr IVPB Q12 [facility] Last Admin: 06/01/18 10:52 Dose: 400 mls/hr Sodium Chloride (Sodium Chloride 0.9%) 1,000 mls @ 70 mls/hr IV .[id number] [facility] Last Admin: 06/01/18 10:52 Dose: 70 mls/hr Lorazepam (Ativan) 1 mg IV Q4 PRN; Protocol PRN Reason: Seizure activity Last Admin: 05/23/18 01:28 Dose: 1 mg Metoclopramide HCl (Reglan) 5 mg IVP ACHS [facility] Last Admin: 06/01/18 17:17 Dose: 5 mg Pantoprazole Sodium (Protonix Susp) 40 mg GT DAILY [facility] Last Admin: 06/01/18 10:52 Dose: 40 mg Phenytoin (Dilantin) 100 mg PO Q8 [facility] Last Admin: 06/01/18 13:40 Dose: 100 mg - Labs Labs: 06/01/18 08:30 06/01/18 08:30 PT 15.6 SECONDS (9.4-12.5) H 05/18/18 06:45 INR 1.35 05/18/18 06:45 Attending/Attestation - Attestation I have personally seen and examined this patient.: Yes I have fully participated in the care of the patient.: Yes I have reviewed all pertinent clinical information, including history, physical exam and plan: Yes Notes (Text): 06/01/18 17:54 73 year old male with PMH of seizure and throat cancer s/p tracheostomy who presented with complaint of dysphagia. CT neck showed oropharyngeal mass concerning for malignancy. Patient was seen by ENT, GI, surgery and hematology / oncology. 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 Patient is SP G-tube , tolerating feeding..He is SP treatment for Aspiration Pneumonia. MRI or orbit, face, and neck showed large mass at laryngectomy site. 3.3 x 4.9 x 5.7cm. Well circumscribed borders with no invasion. Plan for outpatient PET scan and radiation therapy. Anemia is stable PT has recommends [facility] . .Patient is awaiting placement.
[2018-05-30] MEDS ORDERED: Phenytoin 100 mg/2 ml Inj ONE (22:11)
[2018-05-31 07:21] LABS: BASO # 0.02 K/mm3 (0.0-2.0); BASO % 0.2 % (0.0-3.0); EOS # 0.2 (0.0-0.7); EOS % 1.4 % (1.5-5.0); GRAN # 9.42 (1.4-6.5); GRAN % 79.4 % (50.0-68.0); HEMOGLOBIN 8.3 g/dL (14.0-18.0); LYMPH # 1.4 (1.2-3.4); LYMPH % 11.6 % (22.0-35.0); MEAN CELL VOLUME 88.9 fl (80.0-105.0); MEAN CORPUSCULAR HEMOGLOBIN 28.7 pg (25.0-35.0); MEAN CORPUSCULAR HGB CONC 32.3 g/dl (31.0-37.0); MEAN PLATELET VOLUME 9.6 fl (7.0-11.0); MONO # 0.9 (0.1-0.6); MONO % 7.4 % (1.0-6.0); RBC 2.89 10^6/uL (3.5-6.1); RED CELL DISTRIBUTION WIDTH 14.5 % (11.5-14.5); WHITE BLOOD COUNT 11.9 10^3/ul (4.5-11.0)
[2018-05-31 07:39] LABS: ALB/GLOB RATIO 0.8 (1.1-1.8); ALBUMIN 2.7 g/dL (3.0-4.8); ALT/SGPT 47 U/L (7-56); AST/SGOT 44 U/L (17-59); BLOOD UREA NITROGEN 8 mg/dL (7-21); CALCIUM 8.7 mg/dL (8.4-10.5); GFR NON-AFRICAN AMERICAN > 60
[2018-05-31] MEDS: Albuterol-Ipratrop 3 mg / 0.5 (3 ml) UD IH SCH ×3 (08:08→19:52)
--- NOTE | 2018-05-31 08:19 | CP.PCM.PN ---
<Candelario Guerra - Last Filed: 05/31/18 08:00> Subjective - Date & Time of Evaluation Date of Evaluation: 05/31/18 Time of Evaluation: 08:00 - Subjective Subjective: Heme/Onc Progress Note for Dr. Ibrahima Guerra, PGY2 Patient seen and examined at bedside. No acute overnight events. Patient states that congestion is better. Patient denied CP, SOB, n/v/d, abdominal pain, fever, chills, STARR, or dizziness. Objective - Vital Signs/Intake and Output Vital Signs (last 24 hours): Temp Pulse Resp BP Pulse Ox 99.5 F 82 20 114/68 100 05/31/18 06:00 05/31/18 06:00 05/31/18 06:00 05/31/18 06:00 05/31/18 06:00 Intake and Output: 05/31/18 05/31/18 06:59 18:59 Intake Total 980 Output Total 1025 Balance -45 - Medications Medications: Current Medications Acetaminophen (Tylenol 650 Mg Supp) 650 mg RC Q4 PRN PRN Reason: mild pain (1-3);Fever >100.4 F Last Admin: 05/29/18 23:55 Dose: 650 mg Albuterol/Ipratropium (Duoneb 3 Mg/0.5 Mg (3 Ml) Ud) 3 ml IH TIDRESP [facility] Last Admin: 05/30/18 19:35 Dose: 3 ml Heparin Sodium (Porcine) (Heparin) 5,000 units SC Q8 [facility] PRN Reason: Protocol Last Admin: 05/31/18 05:07 Dose: 5,000 units Phenytoin 100 mg/ Sodium (Chloride) 52 mls @ 104 mls/hr IVPB Q8 [facility] Last Admin: 05/31/18 05:08 Dose: 104 mls/hr Levetiracetam (Keppra 500mg Ivpb) 500 mg in 100 mls @ 400 mls/hr IVPB Q12 [facility] Last Admin: 05/30/18 22:14 Dose: 400 mls/hr Lorazepam (Ativan) 1 mg IV Q4 PRN; Protocol PRN Reason: Seizure activity Last Admin: 05/23/18 01:28 Dose: 1 mg Metoclopramide HCl (Reglan) 5 mg IVP ACHS [facility] Last Admin: 05/30/18 22:14 Dose: 5 mg Pantoprazole Sodium (Protonix Inj) 40 mg IVP DAILY [facility] Last Admin: 05/30/18 09:28 Dose: 40 mg - Labs Labs: 05/31/18 06:30 05/31/18 06:30 PT 15.6 SECONDS (9.4-12.5) H 05/18/18 06:45 INR 1.35 05/18/18 06:45 - Constitutional Appears: No Acute Distress - Head Exam Head Exam: NORMAL INSPECTION - Eye Exam Eye Exam: Normal appearance - ENT Exam ENT Exam: Mucous Membranes Moist Additional comments: tracheostomy in place - Respiratory Exam Respiratory Exam: Clear to Ausculation Bilateral, NORMAL BREATHING PATTERN - Cardiovascular Exam Cardiovascular Exam: REGULAR RHYTHM - GI/Abdominal Exam GI & Abdominal Exam: Soft, Normal Bowel Sounds - Extremities Exam Extremities Exam: Normal Inspection - Back Exam Back Exam: NORMAL INSPECTION - Psychiatric Exam Psychiatric exam: Normal Affect - Skin Skin Exam: Normal Color Assessment and Plan - Assessment and Plan (Free Text) Assessment: 73 yo M with 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 Biopsy of mass showed highly atypical cells suspicious for SCC. Plan: - Sinus xray negative - Follow up with oncology and rad-onc on discharge; will be evaluated for re- irradiation - Radiation oncology consulted - re-irradiation/chemotherapy vs palliative chemotherapy depending on original radiation segura - Recommend outpatient PET/CT to determine if metastasis is present - MRI or orbit, face, and neck showed large mass at laryngectomy site. 3.3 x 4.9 x 5.7cm. Well circumscribed borders with no invasion. - Biopsy of mass showed highly atypical cells suspicious for SCC - S/p open g-tube - CXR showed KATHERINE PNA, abx per primary, now off - Further recs per GI, ENT, surgery, and primary Case reviewed and discussed with attending. Jose Guerra DO PGY2 <Chiquis Alexandra P - Last Filed: 06/06/18 23:09> Objective - Vital Signs/Intake and Output Vital Signs (last 24 hours): Temp Pulse Resp BP Pulse Ox 99 F 92 H 20 125/72 99 06/02/18 16:06 06/02/18 16:06 06/02/18 16:06 06/02/18 16:06 06/02/18 16:06 - Labs Labs: 06/02/18 07:30 06/02/18 07:30 PT 15.6 SECONDS (9.4-12.5) H 05/18/18 06:45 INR 1.35 05/18/18 06:45 Attending/Attestation - Attestation I have personally seen and examined this patient.: Yes I have fully participated in the care of the patient.: Yes I have reviewed all pertinent clinical information, including history, physical exam and plan: Yes
[2018-05-31] MEDS: levETIRAcetam 500mg IVPB 500 MG/100 ML BAG IVPB SCH ×2 (09:29→21:38)
[2018-05-31] MEDS: Phenytoin 100 mg/4 ml Oral Susp UD PO SCH ×2 (18:47→21:38)
--- NOTE | 2018-05-31 19:07 | CP.PCM.PN ---
<Ochoa Matute - Last Filed: 05/31/18 19:08> Subjective - Date & Time of Evaluation Date of Evaluation: 05/31/18 Time of Evaluation: 07:00 - Subjective Subjective: Pt seen and examined at bedside this morning. Pt denies chest pain or SOB. States his hiccups have resolved. Objective - Vital Signs/Intake and Output Vital Signs (last 24 hours): Temp Pulse Resp BP Pulse Ox 98.7 F 80 18 122/68 100 05/31/18 12:00 05/31/18 12:00 05/31/18 12:00 05/31/18 12:00 05/31/18 06:00 - Medications Medications: Current Medications Acetaminophen (Tylenol 650 Mg Supp) 650 mg RC Q4 PRN PRN Reason: mild pain (1-3);Fever >100.4 F Last Admin: 05/29/18 23:55 Dose: 650 mg Albuterol/Ipratropium (Duoneb 3 Mg/0.5 Mg (3 Ml) Ud) 3 ml IH TIDRESP [facility] Last Admin: 05/31/18 13:53 Dose: 3 ml Heparin Sodium (Porcine) (Heparin) 5,000 units SC Q8 NAVEEN PRN Reason: Protocol Last Admin: 05/31/18 14:46 Dose: 5,000 units Levetiracetam (Keppra 500mg Ivpb) 500 mg in 100 mls @ 400 mls/hr IVPB Q12 NAVEEN Last Admin: 05/31/18 09:29 Dose: 400 mls/hr Lorazepam (Ativan) 1 mg IV Q4 PRN; Protocol PRN Reason: Seizure activity Last Admin: 05/23/18 01:28 Dose: 1 mg Metoclopramide HCl (Reglan) 5 mg IVP ACHS NAVEEN Last Admin: 05/31/18 12:06 Dose: 5 mg Pantoprazole Sodium (Protonix Susp) 40 mg GT DAILY NAVEEN Phenytoin (Dilantin) 100 mg PO Q8 NAVEEN Last Admin: 05/31/18 18:47 Dose: 100 mg - Labs Labs: 05/31/18 06:30 05/31/18 06:30 PT 15.6 SECONDS (9.4-12.5) H 05/18/18 06:45 INR 1.35 05/18/18 06:45 - Constitutional Appears: No Acute Distress - Head Exam Head Exam: ATRAUMATIC - Eye Exam Eye Exam: EOMI - ENT Exam ENT Exam: Mucous Membranes Moist - Respiratory Exam Respiratory Exam: Clear to Ausculation Bilateral, NORMAL BREATHING PATTERN - Cardiovascular Exam Cardiovascular Exam: REGULAR RHYTHM - GI/Abdominal Exam GI & Abdominal Exam: Soft, Normal Bowel Sounds - Extremities Exam Extremities Exam: Full ROM. absent: Calf Tenderness, Pedal Edema - Neurological Exam Neurological Exam: Alert, Awake, Oriented x3 - Psychiatric Exam Psychiatric exam: Normal Affect, Normal Mood - Skin Skin Exam: Dry, Normal Color, Warm Assessment and Plan - Assessment and Plan (Free Text) Assessment: Pt is a 73 yo male with a PMH of seizure and throat cancer s/p tracheostomy who presented with complaints of dysphagia. Plan: Dysphagia - Reglan 5mg IVP ACHS - Aspiration precautions, Keep HOB elevated - MRI Orbit, Face and Neck: mass at the site of laryngectomy above the tracheostomy. Well-circumscribed borders, no obvious invasion of adjacent fat planes. - Tube feeds: Jevity 1.2 (10ml/10ml/40ml), bolus feeds - Radiation Oncology: re-irradiation/ chemo vs palliative chemo depending on original radiation segura - Hematology/Oncology: follow up out pt onc on discharge with Dr Ede Cleveland or Dr Alexandra. Recommend out pt PET/ CT. - Palliative Care, GI, Surgery following - Dietitian consult, appreciate recommendations Anemia - Hgb 8.3 - FOBT uncollected History of Seizures - Phenytoin 100mg IVBP q8, Ativan 1mg IV q4 PRN, Levitiracetam 500mg IVPB Q12 - Seizure precautions - hold feeds 2 hrs before and 2 hours after dilantin is given via G-tube History of COPD - Duonebs TID Ppx - Heparin - Protonix Pt seen, examined, assessment, and plan discussed with Dr Lang. Ochoa Matute PGY1 Internal Medicine Resident <Dejah Lang - Last Filed: 06/01/18 17:56> Objective - Vital Signs/Intake and Output Vital Signs (last 24 hours): Temp Pulse Resp BP Pulse Ox 98.8 F 90 18 107/60 99 06/01/18 14:00 06/01/18 14:00 06/01/18 14:00 06/01/18 14:00 06/01/18 14:00 - Medications Medications: Current Medications Acetaminophen (Tylenol 650 Mg Supp) 650 mg RC Q4 PRN PRN Reason: mild pain (1-3);Fever >100.4 F Last Admin: 05/29/18 23:55 Dose: 650 mg Albuterol/Ipratropium (Duoneb 3 Mg/0.5 Mg (3 Ml) Ud) 3 ml IH TIDRESP [facility] Last Admin: 06/01/18 13:08 Dose: 3 ml Levetiracetam (Keppra 500mg Ivpb) 500 mg in 100 mls @ 400 mls/hr IVPB Q12 NAVEEN Last Admin: 06/01/18 10:52 Dose: 400 mls/hr Sodium Chloride (Sodium Chloride 0.9%) 1,000 mls @ 70 mls/hr IV .[id number] [facility] Last Admin: 06/01/18 10:52 Dose: 70 mls/hr Lorazepam (Ativan) 1 mg IV Q4 PRN; Protocol PRN Reason: Seizure activity Last Admin: 05/23/18 01:28 Dose: 1 mg Metoclopramide HCl (Reglan) 5 mg IVP ACHS [facility] Last Admin: 06/01/18 17:17 Dose: 5 mg Pantoprazole Sodium (Protonix Susp) 40 mg GT DAILY [facility] Last Admin: 06/01/18 10:52 Dose: 40 mg Phenytoin (Dilantin) 100 mg PO Q8 [facility] Last Admin: 06/01/18 13:40 Dose: 100 mg - Labs Labs: 06/01/18 08:30 06/01/18 08:30 PT 15.6 SECONDS (9.4-12.5) H 05/18/18 06:45 INR 1.35 05/18/18 06:45 Attending/Attestation - Attestation I have personally seen and examined this patient.: Yes I have fully participated in the care of the patient.: Yes I have reviewed all pertinent clinical information, including history, physical exam and plan: Yes Notes (Text): 06/01/18 17:56 Medical record note made by the resident after discussion with my direction and input after the patient was personally seen and examined by me. I have reviewed the chart and agree that the record accurately reflects by personal performance of the history, physical exam, data review, and medical decision-making, in the course for the patient. I have also personally directed the plan of care.
[2018-06-01] MEDS: Phenytoin 100 mg/4 ml Oral Susp UD PO SCH ×3 (05:39→22:10)
[2018-06-01] MEDS: Albuterol-Ipratrop 3 mg / 0.5 (3 ml) UD IH SCH ×3 (07:45→19:49)
[2018-06-01 08:57] LABS: BASO # 0.02 K/mm3 (0.0-2.0); BASO % 0.2 % (0.0-3.0); EOS # 0.1 (0.0-0.7); EOS % 1.1 % (1.5-5.0); GRAN # 10.27 (1.4-6.5); GRAN % 82.8 % (50.0-68.0); HEMOGLOBIN 8.2 g/dL (14.0-18.0); LYMPH # 1.1 (1.2-3.4); LYMPH % 8.6 % (22.0-35.0); MEAN CELL VOLUME 89.6 fl (80.0-105.0); MEAN CORPUSCULAR HEMOGLOBIN 29.3 pg (25.0-35.0); MEAN CORPUSCULAR HGB CONC 32.7 g/dl (31.0-37.0); MONO # 0.9 (0.1-0.6); MONO % 7.3 % (1.0-6.0); RBC 2.8 10^6/uL (3.5-6.1); WHITE BLOOD COUNT 12.4 10^3/ul (4.5-11.0)
[2018-06-01 09:26] LABS: ALB/GLOB RATIO 0.8 (1.1-1.8); ALT/SGPT 51 U/L (7-56); AST/SGOT 67 U/L (17-59); BLOOD UREA NITROGEN 12 mg/dL (7-21); CALCIUM 9.1 mg/dL (8.4-10.5); GFR NON-AFRICAN AMERICAN > 60
[2018-06-01] MEDS: Sodium Chloride 0.9% 1,000 ML IV SCH (10:52)
[2018-06-01] MEDS: levETIRAcetam 500mg IVPB 500 MG/100 ML BAG IVPB SCH ×2 (10:52→22:01)
[2018-06-01] MEDS: Pantoprazole 40 mg Susp UD GT SCH (10:52)
--- NOTE | 2018-06-01 13:38 | CP.PCM.PN ---
<Ochoa Matute - Last Filed: 06/01/18 13:26> Subjective - Date & Time of Evaluation Date of Evaluation: 06/01/18 Time of Evaluation: 07:00 - Subjective Subjective: Pt seen and examined, no new complaints at this time. Objective - Vital Signs/Intake and Output Vital Signs (last 24 hours): Temp Pulse Resp BP Pulse Ox 98.4 F 87 16 107/64 96 06/01/18 08:24 06/01/18 08:24 06/01/18 08:24 06/01/18 08:24 06/01/18 08:24 - Medications Medications: Current Medications Acetaminophen (Tylenol 650 Mg Supp) 650 mg RC Q4 PRN PRN Reason: mild pain (1-3);Fever >100.4 F Last Admin: 05/29/18 23:55 Dose: 650 mg Albuterol/Ipratropium (Duoneb 3 Mg/0.5 Mg (3 Ml) Ud) 3 ml IH TIDRESP [facility] Last Admin: 06/01/18 13:08 Dose: 3 ml Levetiracetam (Keppra 500mg Ivpb) 500 mg in 100 mls @ 400 mls/hr IVPB Q12 [facility]AVEEN Last Admin: 06/01/18 10:52 Dose: 400 mls/hr Sodium Chloride (Sodium Chloride 0.9%) 1,000 mls @ 70 mls/hr IV .[id number] [facility] Last Admin: 06/01/18 10:52 Dose: 70 mls/hr Lorazepam (Ativan) 1 mg IV Q4 PRN; Protocol PRN Reason: Seizure activity Last Admin: 05/23/18 01:28 Dose: 1 mg Metoclopramide HCl (Reglan) 5 mg IVP ACHS [facility] Last Admin: 06/01/18 10:56 Dose: Not Given Pantoprazole Sodium (Protonix Susp) 40 mg GT DAILY [facility] Last Admin: 06/01/18 10:52 Dose: 40 mg Phenytoin (Dilantin) 100 mg PO Q8 [facility] Last Admin: 06/01/18 05:39 Dose: 100 mg - Labs Labs: 06/01/18 08:30 06/01/18 08:30 PT 15.6 SECONDS (9.4-12.5) H 05/18/18 06:45 INR 1.35 05/18/18 06:45 - Constitutional Appears: In Acute Distress - Head Exam Head Exam: ATRAUMATIC, NORMOCEPHALIC - ENT Exam ENT Exam: Mucous Membranes Moist - Respiratory Exam Respiratory Exam: Clear to Ausculation Bilateral, NORMAL BREATHING PATTERN. absent: Accessory Muscle Use - Cardiovascular Exam Cardiovascular Exam: REGULAR RHYTHM - GI/Abdominal Exam GI & Abdominal Exam: Soft Additional comments: G tube in place - Extremities Exam Extremities Exam: Full ROM - Neurological Exam Neurological Exam: Alert, Awake - Skin Skin Exam: Dry, Intact, Warm Assessment and Plan - Assessment and Plan (Free Text) Assessment: Pt is a 73 yo male with a PMH of seizure and throat cancer s/p tracheostomy who presented with complaints of dysphagia. Plan: Dysphagia - Reglan 5mg IVP ACHS - Aspiration precautions, Keep HOB elevated - MRI Orbit, Face and Neck: mass at the site of laryngectomy above the tracheostomy. Well-circumscribed borders, no obvious invasion of adjacent fat planes. - G tube feeds: Vital 70ml/hr bolus feeds - Radiation Oncology: re-irradiation/ chemo vs palliative chemo depending on original radiation segura - Hematology/Oncology: follow up out pt onc on discharge with Dr Ede Cleveland or Dr Alexandra. Recommend out pt PET/ CT. - Palliative Care, GI, Surgery following - Dietitian consult, appreciate recommendations Anemia - Hgb 8.2 - FOBT uncollected History of Seizures - Phenytoin 100mg IVBP q8, Ativan 1mg IV q4 PRN, Levitiracetam 500mg IVPB Q12 - Seizure precautions History of COPD - Duonebs TID Ppx - Protonix - SCDs Dispo: pt going to TCU June 02 Pt seen, examined, assessment, and plan discussed with Dr Lang. Ochoa Matute PGY1, Internal Medicine Resident <Dejah Lang - Last Filed: 06/01/18 17:59> Objective - Vital Signs/Intake and Output Vital Signs (last 24 hours): Temp Pulse Resp BP Pulse Ox 98.8 F 90 18 107/60 99 06/01/18 14:00 06/01/18 14:00 06/01/18 14:00 06/01/18 14:00 06/01/18 14:00 - Medications Medications: Current Medications Acetaminophen (Tylenol 650 Mg Supp) 650 mg RC Q4 PRN PRN Reason: mild pain (1-3);Fever >100.4 F Last Admin: 05/29/18 23:55 Dose: 650 mg Albuterol/Ipratropium (Duoneb 3 Mg/0.5 Mg (3 Ml) Ud) 3 ml IH TIDRESP [facility] Last Admin: 06/01/18 13:08 Dose: 3 ml Levetiracetam (Keppra 500mg Ivpb) 500 mg in 100 mls @ 400 mls/hr IVPB Q12 [facility]EN Last Admin: 06/01/18 10:52 Dose: 400 mls/hr Sodium Chloride (Sodium Chloride 0.9%) 1,000 mls @ 70 mls/hr IV .[id number] [facility] Last Admin: 06/01/18 10:52 Dose: 70 mls/hr Lorazepam (Ativan) 1 mg IV Q4 PRN; Protocol PRN Reason: Seizure activity Last Admin: 05/23/18 01:28 Dose: 1 mg Metoclopramide HCl (Reglan) 5 mg IVP ACHS [facility] Last Admin: 06/01/18 17:17 Dose: 5 mg Pantoprazole Sodium (Protonix Susp) 40 mg GT DAILY [facility] Last Admin: 06/01/18 10:52 Dose: 40 mg Phenytoin (Dilantin) 100 mg PO Q8 [facility] Last Admin: 06/01/18 13:40 Dose: 100 mg - Labs Labs: 06/01/18 08:30 06/01/18 08:30 PT 15.6 SECONDS (9.4-12.5) H 05/18/18 06:45 INR 1.35 05/18/18 06:45 Attending/Attestation - Attestation I have personally seen and examined this patient.: Yes I have fully participated in the care of the patient.: Yes I have reviewed all pertinent clinical information, including history, physical exam and plan: Yes Notes (Text): 06/01/18 17:58 Medical record note made by the resident after discussion with my direction and input after the patient was personally seen and examined by me. I have reviewed the chart and agree that the record accurately reflects by personal performance of the history, physical exam, data review, and medical decision-making, in the course for the patient. I have also personally directed the plan of care. 73 year old male with PMH of seizure and throat cancer s/p tracheostomy who presented with complaint of dysphagia. CT neck showed oropharyngeal mass concerning for malignancy. Patient was seen by ENT, GI, surgery and hematology / oncology. 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 Patient is SP G-tube , tolerating feeding..He is SP treatment for Aspiration Pneumonia. MRI or orbit, face, and neck showed large mass at laryngectomy site. 3.3 x 4.9 x 5.7cm. Well circumscribed borders with no invasion. Plan for outpatient PET scan and radiation therapy. .Anemia is stable . Hyponatremia NA 127 today.Patient is euvolemic, we will order hyponatremia work up, will gently hydrate patient and will follow up sodium level. Patient is awaiting TCU placement. Prognosis is guarded. Management plan was discussed in detail with patient. Education was provided.
--- NOTE | 2018-06-01 17:43 | PN ---
Copied To: Jeff Chavez MD Attending MD: Jeff Chavez MD DATE: 06/01/2018 This is [facility] visit on the medical floor. For Dr. Alexandra. SUBJECTIVE: The patient is a 73-year-old male, seen resting, lying in bed, in no acute distress, having had a visit recently with Dr. Yue Goldberg, Radiation/Oncology with recommendations for radiation to be begun once the patient is stable with records to obtain from his previous treatment given elsewhere. Otherwise, the patient is recommended for a PET/CT scan once he is discharged with anticipation for transfer to TCU when a bed is available. 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 OBJECTIVE/PHYSICAL EXAMINATION: VITAL SIGNS: Temperature 98.4, pulse 87, respirations 16, blood pressure 107/64, and pulse ox 96%. HEENT: Patent tracheostomy tube with stoma, dressed with no swelling of the dressing. HEART: Regular rate. LUNGS: Rare rhonchi. ABDOMEN: Soft with viable PEG. EXTREMITIES: No edema. SKIN: Warm and dry. LABORATORY DATA: The patient's labs were done. White blood cell count of 12, hemoglobin 8.2, hematocrit 25.1, and platelet count of 622,000. Chem metabolic panel showing sodium 127 with normal chloride of 100. Creatinine 0.7. Nonfasting glucose 140. AST of 67. 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 PLAN: Continue present medical regimen as per attending consultants with PET/CT recommended in addition to radiation with further recommendations as per TCU eventually for reconditioning. Prognosis for this patient is guarded. Monitor clinically and with labs as indicated. The patient also has anemic indices which will continue to be monitored for now with treatment as per Dr. Alexandra should be necessary. This is a complex patient with a comprehensive medically necessary and appropriate visit carried out in excess of 20 minutes. Jeff Chavez MD [facility] # [id number]
[2018-06-01] MEDS ORDERED: Alum-Mag Hydrox-Simethicone Susp (30 mL) PO ONE (18:35)
[2018-06-02] MEDS: Phenytoin 100 mg/4 ml Oral Susp UD PO SCH ×2 (05:17→13:29)
[2018-06-02] MEDS: Sodium Chloride 0.9% 1,000 ML IV SCH (05:18)
[2018-06-02 08:23] LABS: BASO # 0.01 K/mm3 (0.0-2.0); BASO % 0.1 % (0.0-3.0); EOS # 0.1 (0.0-0.7); GRAN # 8.85 (1.4-6.5); GRAN % 80.3 % (50.0-68.0); LYMPH # 0.9 (1.2-3.4); LYMPH % 8.5 % (22.0-35.0); MEAN CELL VOLUME 89.6 fl (80.0-105.0); MEAN CORPUSCULAR HEMOGLOBIN 28.7 pg (25.0-35.0); MEAN PLATELET VOLUME 8.8 fl (7.0-11.0); MONO # 1.1 (0.1-0.6); MONO % 10.1 % (1.0-6.0); RBC 2.79 10^6/uL (3.5-6.1)
[2018-06-02 08:32] VITALS: RESP 20; TEMP 99
[2018-06-02 08:53] LABS: ALB/GLOB RATIO 0.9 (1.1-1.8); ALT/SGPT 47 U/L (7-56); AST/SGOT 58 U/L (17-59); BLOOD UREA NITROGEN 9 mg/dL (7-21); CALCIUM 8.6 mg/dL (8.4-10.5); GFR NON-AFRICAN AMERICAN > 60
[2018-06-02 08:59] LABS: IRON 38 ug/dL (45-180)
[2018-06-02 09:08] LABS: % IRON SATURATION 19 % (20-55); TOTAL IRON BINDING CAPACITY 200 ug/dL (261-462)
[2018-06-02] MEDS: Pantoprazole 40 mg Susp UD GT SCH (11:29)
[2018-06-02] MEDS: levETIRAcetam 500mg IVPB 500 MG/100 ML BAG IVPB SCH (11:29)
--- NOTE | 2018-06-02 14:03 | CP.PCM.DIS ---
<GiovaniOchoa - Last Filed: 06/02/18 13:59> Provider - Provider Date of Admission: 05/17/18 20:02 Attending physician: Dejah Lang MD Primary care physician: Sue Alvarado MD Consults: GI Heme onc ENT Surgery Rad onc Time Spent in preparation of Discharge (in minutes): 45 Diagnosis - Discharge Diagnosis (1) Oropharyngeal mass Status: Acute Priority: High (2) Laryngeal cancer Status: Acute Priority: High (3) Anemia Status: Chronic Priority: Medium (4) Dysphagia Status: Chronic Priority: Medium (5) Seizures Status: Chronic Priority: Medium Hospital Course - Lab Results Lab Results: Micro Results 05/24/18 21:25 Blood-Venous Blood Culture - Final NO GROWTH AFTER 5 DAYS 05/24/18 21:25 Blood-Venous Gram Stain - Final TEST NOT PERFORMED 05/24/18 21:25 Blood-Venous Blood Culture - Final NO GROWTH AFTER 5 DAYS 05/24/18 21:25 Blood-Venous Gram Stain - Final TEST NOT PERFORMED 05/27/18 08:31 Urine Urine Culture - Final No Growth (<1,000 CFU/ML) Most Recent Lab Values WBC 11.0 10^3/ul (4.5-11.0) 06/02/18 07:30 RBC 2.79 10^6/uL (3.5-6.1) L 06/02/18 07:30 Hgb 8.0 g/dL (14.0-18.0) L 06/02/18 07:30 Hct 25.0 % (42.0-52.0) L 06/02/18 07:30 MCV 89.6 fl (80.0-105.0) 06/02/18 07:30 MCH 28.7 pg (25.0-35.0) 06/02/18 07:30 MCHC 32.0 g/dl (31.0-37.0) 06/02/18 07:30 RDW 15.0 % (11.5-14.5) H 06/02/18 07:30 Plt Count 632 10^3/uL (120.0-450.0) H 06/02/18 07:30 MPV 8.8 fl (7.0-11.0) 06/02/18 07:30 Gran % 80.3 % (50.0-68.0) H 06/02/18 07:30 Lymph % (Auto) 8.5 % (22.0-35.0) L 06/02/18 07:30 [place] % (Auto) 10.1 % (1.0-6.0) H 06/02/18 07:30 Eos % (Auto) 1.0 % (1.5-5.0) L 06/02/18 07:30 Baso % (Auto) 0.1 % (0.0-3.0) 06/02/18 07:30 Gran # 8.85 (1.4-6.5) H 06/02/18 07:30 Lymph # (Auto) 0.9 (1.2-3.4) L 06/02/18 07:30 [place] # (Auto) 1.1 (0.1-0.6) H 06/02/18 07:30 Eos # (Auto) 0.1 (0.0-0.7) 06/02/18 07:30 Baso # (Auto) 0.01 K/mm3 (0.0-2.0) 06/02/18 07:30 Neutrophils % (Manual) 90 % (50.0-70.0) H 05/26/18 06:30 Band Neutrophils % 5 % (0-2) H 05/26/18 06:30 Lymphocytes % (Manual) 1 % (22.0-35.0) L 05/26/18 06:30 Monocytes % (Manual) 3 % (1.0-6.0) 05/26/18 06:30 Platelet Evaluation Normal (NORMAL) 05/26/18 06:30 PT 15.6 SECONDS (9.4-12.5) H 05/18/18 06:45 INR 1.35 05/18/18 06:45 Sodium 136 mmol/L (132-148) 06/02/18 07:30 Potassium 3.8 mmol/L (3.6-5.0) 06/02/18 07:30 Chloride 103 mmol/L (98-107) 06/02/18 07:30 Carbon Dioxide 27 mmol/L (21-33) 06/02/18 07:30 Anion Gap 10 (10-20) 06/02/18 07:30 BUN 9 mg/dL (7-21) 06/02/18 07:30 Creatinine 0.5 mg/dl (0.8-1.5) L 06/02/18 07:30 Est GFR ( Amer) > 60 06/02/18 07:30 Est GFR (Non-Af Amer) > 60 06/02/18 07:30 POC Glucose (mg/dL) 148 mg/dL (65-110) H 06/02/18 06:46 Random Glucose 134 mg/dL (70-110) H 06/02/18 07:30 Hemoglobin A1c 5.9 % (4.2-6.5) 05/18/18 07:35 Calcium 8.6 mg/dL (8.4-10.5) 06/02/18 07:30 Phosphorus 2.6 mg/dL (2.5-4.5) 05/27/18 06:30 Magnesium 1.8 mg/dL (1.7-2.2) 05/27/18 06:30 Iron 38 ug/dL (45-180) L 06/02/18 07:30 TIBC 200 ug/dL (261-462) L 06/02/18 07:30 % Saturation 19 % (20-55) L 06/02/18 07:30 Transferrin 127.57 mg/dL (206-381) L 06/02/18 07:30 Ferritin 236.0 ng/mL 06/02/18 07:30 Total Bilirubin 1.0 mg/dL (0.2-1.3) 06/02/18 07:30 AST 58 U/L (17-59) 06/02/18 07:30 ALT 47 U/L (7-56) 06/02/18 07:30 Alkaline Phosphatase 100 U/L (38-126) 06/02/18 07:30 Total Creatine Kinase 32 U/L (35-230) L 05/23/18 07:10 Troponin I 0.02 ng/mL 05/23/18 07:10 Total Protein 6.4 g/dL (5.8-8.3) 06/02/18 07:30 Albumin 3.0 g/dL (3.0-4.8) 06/02/18 07:30 Globulin 3.5 gm/dL 06/02/18 07:30 Albumin/Globulin Ratio 0.9 (1.1-1.8) L 06/02/18 07:30 Prealbumin 9.7 mg/dL (17.6-36.0) L 05/19/18 12:00 Triglycerides 80 mg/dL (35-160) 05/19/18 14:10 Cholesterol 145 mg/dL (130-200) 05/19/18 14:10 LDL Cholesterol Direct 83 mg/dL (0-129) 05/19/18 14:10 HDL Cholesterol 36 mg/dL (29-60) 05/19/18 14:10 Procalcitonin 0.23 NG/ML (0.19-0.49) 05/26/18 12:22 Urine Color Yellow (YELLOW) 05/27/18 08:31 Urine Appearance Clear (CLEAR) 05/27/18 08:31 Urine pH 6.5 (4.7-8.0) 05/27/18 08:31 Ur Specific [place] 1.010 (1.005-1.035) 05/27/18 08:31 Urine Protein Trace mg/dL (<30 mg/dL) H 05/27/18 08:31 Urine Glucose (UA) Negative mg/dL (NEGATIVE) 05/27/18 08:31 Urine Ketones 40 mg/dL (NEGATIVE) H 05/27/18 08:31 Urine Blood Negative (NEGATIVE) 05/27/18 08:31 Urine Nitrate Negative (NEGATIVE) 05/27/18 08:31 Urine Bilirubin Negative (NEGATIVE) 05/27/18 08:31 Urine Urobilinogen 1.0 E.U./dL (<1 E.U./dL) H 05/27/18 08:31 Ur Leukocyte Esterase Negative [place]ja/uL (NEGATIVE) 05/27/18 08:31 Urine RBC 0 - 2 /hpf (0-2) 05/27/18 08:31 Urine WBC 1 - 3 /hpf (0-6) 05/27/18 08:31 Ur Epithelial Cells 0 - 2 /hpf (0-5) 05/27/18 08:31 Amorphous Sediment Few 05/27/18 08:31 Urine Bacteria Many (NEG) 05/27/18 08:31 Urine Other Fiber 05/27/18 08:31 Blood Type A POSITIVE 05/29/18 10:30 Blood Type Confirm A POSITIVE 05/18/18 07:35 Antibody Screen Negative 05/29/18 10:30 BBK History Checked Patient has bt 05/29/18 10:30 - Hospital Course Hospital Course: Pt is a 73 yo male with a PMH of throat cancer s/p trach who presented with a 3 day history of difficulty swallowing which he stated was sudden in onset. Pt was also having difficulty with his external voice box. Pt has had MRI of the face and neck which showed a mass in the oropharynx. Pt was evaluated by GI and surgery for evaluation of g tube placement. GI's assessment was that it would be to risky to place to g tube endoscopically. So the tube was place by surgery after a CT of the abdomen and pelvis was performed to rule out any possible masses in the surrounding area. Pt will be evaluated for radiation therapy while in TCU. - Date & Time of H&P Date of H&P: 06/02/18 Time of H&P: 07:00 Discharge Exam - Head Exam Head Exam: ATRAUMATIC, NORMOCEPHALIC - ENT Exam ENT Exam: Mucous Membranes Moist - Respiratory Exam Respiratory Exam: NORMAL BREATHING PATTERN, UNREMARKABLE. absent: Accessory Muscle Use, Respiratory Distress - Cardiovascular Exam Cardiovascular Exam: RRR, +S1, +S2. absent: JVD - GI/Abdominal Exam GI & Abdominal Exam: Normal Bowel Sounds, Soft, Unremarkable Additional comments: g tube in place - Neurological Exam Neurological exam: Alert - Skin Skin Exam: Intact, Normal Color, Warm Discharge Plan - Discharge Medications Prescriptions: Albuterol/Ipratropium [Duoneb 3 mg/0.5 mg (3 ml) UD] 3 ml IH TIDRESP #1 neb Metoclopramide [Reglan] 5 mg IVP ACHS #14 vial Pantoprazole [Protonix Inj] 40 mg IVP DAILY #14 vial Phenytoin [Dilantin] 100 mg IVPB Q8 #56 vial - Follow Up Plan Condition: FAIR Disposition: REHAB FACILITY/REHAB UNIT Referrals: Sue Alvarado MD [Primary Care Provider] - <Dejah Lang - Last Filed: 06/02/18 15:39> Provider - Provider Date of Admission: 05/17/18 20:02 Attending physician: Dejah Lang MD Primary care physician: Sue Alvarado MD Hospital Course - Lab Results Lab Results: Micro Results 05/24/18 21:25 Blood-Venous Blood Culture - Final NO GROWTH AFTER 5 DAYS 05/24/18 21:25 Blood-Venous Gram Stain - Final TEST NOT PERFORMED 05/24/18 21:25 Blood-Venous Blood Culture - Final NO GROWTH AFTER 5 DAYS 05/24/18 21:25 Blood-Venous Gram Stain - Final TEST NOT PERFORMED 05/27/18 08:31 Urine Urine Culture - Final No Growth (<1,000 CFU/ML) Most Recent Lab Values WBC 11.0 10^3/ul (4.5-11.0) 06/02/18 07:30 RBC 2.79 10^6/uL (3.5-6.1) L 06/02/18 07:30 Hgb 8.0 g/dL (14.0-18.0) L 06/02/18 07:30 Hct 25.0 % (42.0-52.0) L 06/02/18 07:30 MCV 89.6 fl (80.0-105.0) 06/02/18 07:30 MCH 28.7 pg (25.0-35.0) 06/02/18 07:30 MCHC 32.0 g/dl (31.0-37.0) 06/02/18 07:30 RDW 15.0 % (11.5-14.5) H 06/02/18 07:30 Plt Count 632 10^3/uL (120.0-450.0) H 06/02/18 07:30 MPV 8.8 fl (7.0-11.0) 06/02/18 07:30 Gran % 80.3 % (50.0-68.0) H 06/02/18 07:30 Lymph % (Auto) 8.5 % (22.0-35.0) L 06/02/18 07:30 [place] % (Auto) 10.1 % (1.0-6.0) H 06/02/18 07:30 Eos % (Auto) 1.0 % (1.5-5.0) L 06/02/18 07:30 Baso % (Auto) 0.1 % (0.0-3.0) 06/02/18 07:30 Gran # 8.85 (1.4-6.5) H 06/02/18 07:30 Lymph # (Auto) 0.9 (1.2-3.4) L 06/02/18 07:30 [place] # (Auto) 1.1 (0.1-0.6) H 06/02/18 07:30 Eos # (Auto) 0.1 (0.0-0.7) 06/02/18 07:30 Baso # (Auto) 0.01 K/mm3 (0.0-2.0) 06/02/18 07:30 Neutrophils % (Manual) 90 % (50.0-70.0) H 05/26/18 06:30 Band Neutrophils % 5 % (0-2) H 05/26/18 06:30 Lymphocytes % (Manual) 1 % (22.0-35.0) L 05/26/18 06:30 Monocytes % (Manual) 3 % (1.0-6.0) 05/26/18 06:30 Platelet Evaluation Normal (NORMAL) 05/26/18 06:30 PT 15.6 SECONDS (9.4-12.5) H 05/18/18 06:45 INR 1.35 05/18/18 06:45 Sodium 136 mmol/L (132-148) 06/02/18 07:30 Potassium 3.8 mmol/L (3.6-5.0) 06/02/18 07:30 Chloride 103 mmol/L (98-107) 06/02/18 07:30 Carbon Dioxide 27 mmol/L (21-33) 06/02/18 07:30 Anion Gap 10 (10-20) 06/02/18 07:30 BUN 9 mg/dL (7-21) 06/02/18 07:30 Creatinine 0.5 mg/dl (0.8-1.5) L 06/02/18 07:30 Est GFR ( Amer) > 60 06/02/18 07:30 Est GFR (Non-Af Amer) > 60 06/02/18 07:30 POC Glucose (mg/dL) 148 mg/dL (65-110) H 06/02/18 06:46 Random Glucose 134 mg/dL (70-110) H 06/02/18 07:30 Hemoglobin A1c 5.9 % (4.2-6.5) 05/18/18 07:35 Calcium 8.6 mg/dL (8.4-10.5) 06/02/18 07:30 Phosphorus 2.6 mg/dL (2.5-4.5) 05/27/18 06:30 Magnesium 1.8 mg/dL (1.7-2.2) 05/27/18 06:30 Iron 38 ug/dL (45-180) L 06/02/18 07:30 TIBC 200 ug/dL (261-462) L 06/02/18 07:30 % Saturation 19 % (20-55) L 06/02/18 07:30 Transferrin 127.57 mg/dL (206-381) L 06/02/18 07:30 Ferritin 236.0 ng/mL 06/02/18 07:30 Total Bilirubin 1.0 mg/dL (0.2-1.3) 06/02/18 07:30 AST 58 U/L (17-59) 06/02/18 07:30 ALT 47 U/L (7-56) 06/02/18 07:30 Alkaline Phosphatase 100 U/L (38-126) 06/02/18 07:30 Total Creatine Kinase 32 U/L (35-230) L 05/23/18 07:10 Troponin I 0.02 ng/mL 05/23/18 07:10 Total Protein 6.4 g/dL (5.8-8.3) 06/02/18 07:30 Albumin 3.0 g/dL (3.0-4.8) 06/02/18 07:30 Globulin 3.5 gm/dL 06/02/18 07:30 Albumin/Globulin Ratio 0.9 (1.1-1.8) L 06/02/18 07:30 Prealbumin 9.7 mg/dL (17.6-36.0) L 05/19/18 12:00 Triglycerides 80 mg/dL (35-160) 05/19/18 14:10 Cholesterol 145 mg/dL (130-200) 05/19/18 14:10 LDL Cholesterol Direct 83 mg/dL (0-129) 05/19/18 14:10 HDL Cholesterol 36 mg/dL (29-60) 05/19/18 14:10 Procalcitonin 0.23 NG/ML (0.19-0.49) 05/26/18 12:22 Urine Color Yellow (YELLOW) 05/27/18 08:31 Urine Appearance Clear (CLEAR) 05/27/18 08:31 Urine pH 6.5 (4.7-8.0) 05/27/18 08:31 Ur Specific [place] 1.010 (1.005-1.035) 05/27/18 08:31 Urine Protein Trace mg/dL (<30 mg/dL) H 05/27/18 08:31 Urine Glucose (UA) Negative mg/dL (NEGATIVE) 05/27/18 08:31 Urine Ketones 40 mg/dL (NEGATIVE) H 05/27/18 08:31 Urine Blood Negative (NEGATIVE) 05/27/18 08:31 Urine Nitrate Negative (NEGATIVE) 05/27/18 08:31 Urine Bilirubin Negative (NEGATIVE) 05/27/18 08:31 Urine Urobilinogen 1.0 E.U./dL (<1 E.U./dL) H 05/27/18 08:31 Ur Leukocyte Esterase Negative [place]/uL (NEGATIVE) 05/27/18 08:31 Urine RBC 0 - 2 /hpf (0-2) 05/27/18 08:31 Urine WBC 1 - 3 /hpf (0-6) 05/27/18 08:31 Ur Epithelial Cells 0 - 2 /hpf (0-5) 05/27/18 08:31 Amorphous Sediment Few 05/27/18 08:31 Urine Bacteria Many (NEG) 05/27/18 08:31 Urine Other Fiber 05/27/18 08:31 Blood Type A POSITIVE 05/29/18 10:30 Blood Type Confirm A POSITIVE 05/18/18 07:35 Antibody Screen Negative 05/29/18 10:30 BBK History Checked Patient has bt 05/29/18 10:30 Attending/Attestation - Attestation I have personally seen and examined this patient.: Yes I have fully participated in the care of the patient.: Yes I have reviewed all pertinent clinical information, including history, physical exam and plan: Yes Notes (Text): 06/02/18 15:38 Medical record note made by the resident after discussion with my direction and input after the patient was personally seen and examined by me. I have reviewed the chart and agree that the record accurately reflects by personal performance of the history, physical exam, data review, and medical decision-making, in the course for the patient. I have also personally directed the plan of care. 73 year old male with PMH of seizure and throat cancer s/p tracheostomy who presented with complaint of dysphagia. CT neck showed oropharyngeal mass concerning for malignancy. Patient was seen by ENT, GI, surgery and hematology / oncology. 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 Patient is SP G-tube ,Patient is tolerating feeding.. He is SP treatment for Aspiration Pneumonia. MRI or orbit, face, and neck showed large mass at laryngectomy site. 3.3 x 4.9 x 5.7cm. Well circumscribed borders with no invasion. Plan for outpatient PET scan and radiation therapy. Anemia is stable . Hyponatremia is resolved. Patient is going to be discharged to TCU for rehabilitation. Prognosis is guarded. Management plan was discussed in detail with patient. Education was provided.
[2018-06-02 16:08] VITALS: BP 125/72; PULSE 92; O2SAT 99
--- NOTE | 2018-06-12 19:44 | OP ---
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 POSTOPERATIVE DIAGNOSIS: Carcinoma of the upper pharynx. OPERATION PERFORMED: Open gastrostomy. DESCRIPTION OF PROCEDURE: In the operating room, the patient was identified by name, name of procedure, laterality and my estelle, the consent form. An upper midline incision was made through the skin and subcutaneous tissues. The abdomen entered sharply after the time-out was done. The chlorhexidine was dried for 3 minutes. The abdomen was entered. The stomach was mobilized, from the old gastrostomy site. This was the eventual point of entry into the stomach. A #24 tube was inserted directly through left upper quadrant, brought in completely. The balloon was tested. It was folded on itself. Pursestring was placed. Two concentric pursestrings in the abdomen. In the stomach, the tube was inserted after being lubricated. It was irrigated and flushed. Balloon inserted. The pursestring was tied. Four sutures of 2-0 Vicryl were used to pex the stomach to the abdominal wall. This having been done, the tube was secured. The abdomen was irrigated, dried, closed with a running #1 PDS above and below, tied in the middle with a buried knot. The incision was closed with ailyn. The patient was taken to recovery room in good condition after sponge and needle count was declared correct. Ganga Rivas MD
== END 2018-06-02 20:53 | DRG 981 ==
LOC: ED 14:24 → ERH 20:02 → 2RSO 21:40 → 5RSO 05-31 16:09
PROVIDERS: ADMIT Internal Medicine; ATTEND Internal Medicine
PROC: 0CBM8ZX Excision of Pharynx, Via Natural or Artificial Opening Endoscopic, Diagnostic (ICD-10-PCS; 2018-05-20)
PROC: 0DH60UZ Insertion of Feeding Device into Stomach, Open Approach (ICD-10-PCS; principal; 2018-05-23 12:15)
DX: C32.9 Malignant neoplasm of larynx, unspecified (principal); J69.0 Pneumonitis due to inhalation of food and vomit; E87.1 Hypo-osmolality and hyponatremia; C14.0 Malignant neoplasm of pharynx, unspecified; D64.9 Anemia, unspecified; E11.9 Type 2 diabetes mellitus without complications; G40.909 Epilepsy, unspecified, not intractable, without status epilepticus; G47.30 Sleep apnea, unspecified; J38.7 Other diseases of larynx; J43.9 Emphysema, unspecified; J44.9 Chronic obstructive pulmonary disease, unspecified; M17.0 Bilateral primary osteoarthritis of knee; R13.10 Dysphagia, unspecified; R47.02 Dysphasia; R63.3 Feeding difficulties; Z80.0 Family history of malignant neoplasm of digestive organs; Z87.891 Personal history of nicotine dependence; Z90.02 Acquired absence of larynx; Z92.21 Personal history of antineoplastic chemotherapy; Z92.3 Personal history of irradiation; Z93.0 Tracheostomy status; Z93.1 Gastrostomy status

== ENCOUNTER 2018-06-02 20:56 | Inpatient (IN) | payer MEDICARE, OTHER ==
[2018-06-02 22:23] VITALS: BMI 21.4
[2018-06-02] MEDS: Phenytoin 100 mg/4 ml Oral Susp UD GT SCH (23:16)
[2018-06-03] MEDS: levETIRAcetam 500 MG in Sodium Chloride 0.9% 100 ML IV SCH ×2 (00:56→09:51)
[2018-06-03] MEDS: Pantoprazole 40 mg Susp UD GT SCH (05:48)
[2018-06-03] MEDS: Phenytoin 100 mg/4 ml Oral Susp UD GT SCH ×3 (05:49→21:19)
[2018-06-03] MEDS ORDERED: Enoxaparin 40 mg Syringe SC SCH (12:00)
--- NOTE | 2018-06-03 14:27 | CP.PCM.HP ---
<Netta Garay - Last Filed: 06/03/18 17:34> History of Present Illness - History of Present Illness History of Present Illness: Netta Garay PGY1 H&P for Dr. Ball Pt is a 73 yo male with PMH throat cancer s/p trach who presented to ED with a 3 day history of difficulty swallowing which he stated was sudden in onset. Pt was also having difficulty with his external voice box. Pt has had MRI of the face and neck which showed a mass in the oropharynx. Pt was evaluated by GI and surgery for evaluation of g tube placement. GI's assessment was that it would be to risky to place to g tube endoscopically. G tube was placed by surgery after a CT of the abdomen and pelvis was performed to r/o any possible masses in the surrounding area. Pt was transferred to TCU, where he is being evaluated for radiation therapy. Pt was examined at bedside this morning. He denied any chest pain, headache, shortness of breath, abdominal pain, nausea, vomiting, diarrhea, or dysuria. He reports being able to ambulate easily with his cane at home. He has no complaints today. Present on Admission - Present on Admission Any Indicators Present on Admission: No Review of Systems - Constitutional Constitutional: As Per HPI - Cardiovascular Cardiovascular: As Per HPI - Respiratory Respiratory: As Per HPI - Gastrointestinal Gastrointestinal: As Per HPI - Genitourinary Genitourinary: As Per HPI Past Patient History - Past Medical History & Family History Past Medical History?: Yes - Past Social History Smoking Status: Former Smoker - CARDIAC Hx Cardiac Disorders: No - PULMONARY Hx Chronic Obstructive Pulmonary Disease (COPD): Yes - NEUROLOGICAL Hx Neurological Disorder: Yes Hx Seizures: Yes (Well controlled with medication) - HEENT Hx HEENT Problems: Yes Other/Comment: blurry vision mild - RENAL Hx Chronic Kidney Disease: No - ENDOCRINE/METABOLIC Hx Diabetes Mellitus Type 2: Yes (DIET CONTROLLED) - HEMATOLOGICAL/ONCOLOGICAL Hx Cancer: Yes (Throat cancer) - INTEGUMENTARY Hx Dermatological Problems: No Other/Comment: Dry skin scattered throughout body - MUSCULOSKELETAL/RHEUMATOLOGICAL Hx Falls: Yes - GASTROINTESTINAL Hx Gastrointestinal Disorders: Yes (G tube) - GENITOURINARY/GYNECOLOGICAL Hx Genitourinary Disorders: No - PSYCHIATRIC Hx Psychophysiologic Disorder: No - SURGICAL HISTORY Hx Surgeries: Yes - ANESTHESIA Hx Anesthesia Reactions: No Hx Malignant Hyperthermia: No Meds Allergies/Adverse Reactions: Allergies Allergy/AdvReac Type Severity Reaction Status Date / Time No Known Allergies Allergy Verified 06/03/18 00:01 Physical Exam - Constitutional Appears: Well, No Acute Distress - Head Exam Head Exam: ATRAUMATIC, NORMOCEPHALIC - Neck Exam Additional comments: trach site clean, dry, intact. - Respiratory Exam Respiratory Exam: Clear to Auscultation Bilateral, NORMAL BREATHING PATTERN - Cardiovascular Exam Cardiovascular Exam: REGULAR RHYTHM, +S1, +S2 - GI/Abdominal Exam GI & Abdominal Exam: Normal Bowel Sounds, Soft. absent: Tenderness Additional comments: G tube site clean, dry, intact - Extremities Exam Extremities exam: Negative for: calf tenderness, pedal edema - Neurological Exam Neurological exam: Alert - Psychiatric Exam Psychiatric exam: Normal Affect, Normal Mood - Skin Skin Exam: Normal Color Results - Vital Signs Recent Vital Signs: Last Vital Signs Temp 98.7 F 06/02/18 22:00 Pulse 94 H 06/02/18 22:00 Resp 18 06/02/18 22:15 BP 113/69 06/02/18 22:00 Pulse Ox 113 H 06/02/18 22:00 - Labs Labs: Laboratory Results - last 24 hr 06/03/18 06/03/18 05:55 12:00 POC Glucose (mg/dL) 130 H 161 H Assessment & Plan - Assessment and Plan (Free Text) Assessment: Pt is a 73 yo male with a PMH of seizure and throat cancer s/p tracheostomy who presented with complaints of dysphagia, was transferred to the TCU for radiation treatment. Plan: Dysphagia - Reglan 5mg IVP ACHS - Aspiration precautions - Keep HOB elevated - MRI Orbit, Face and Neck: mass at site of laryngectomy above tracheostomy. Well-circumscribed borders, no obvious invasion of adjacent fat planes. - G tube feeds: Vital bolus feeds, 3 per day - Radiation Oncology: re-irradiation/chemo vs palliative chemo depending on original radiation segura - Heme/Onc, Dr. Johnson: f/u outpt upon discharge with Dr. Ede Cleveland or Dr. Alexandra. Recommend outpt PET/CT. Anemia - H&H 8.0/25.0 - FOBT uncollected - start Fe PO - continue to monitor History of Seizures - Phenytoin 100mg IVBP q8 - Levitiracetam 500mg IVPB Q12 - Seizure precautions History of COPD - Duonebs TID Ppx - Protonix - SCDs - lovenox 40 Pt seen, examined, assessment, and plan discussed with Dr Ball. <Ashley Ball - Last Filed: 06/04/18 13:50> Results - Vital Signs Recent Vital Signs: Last Vital Signs Temp 98.2 F 06/04/18 10:00 Pulse 72 06/04/18 10:00 Resp 18 06/04/18 10:00 BP 110/65 06/04/18 10:00 Pulse Ox 99 06/04/18 10:00 - Labs Result Diagrams: 06/04/18 08:20 06/04/18 08:20 Labs: Laboratory Results - last 24 hr 06/03/18 06/03/18 06/04/18 16:44 21:15 06:00 WBC RBC Hgb Hct MCV MCH MCHC RDW Plt Count MPV Gran % Lymph % (Auto) [place] % (Auto) Eos % (Auto) Baso % (Auto) Gran # Lymph # (Auto) [place] # (Auto) Eos # (Auto) Baso # (Auto) Sodium Potassium Chloride Carbon Dioxide Anion Gap BUN Creatinine Est GFR ( Amer) Est GFR (Non-Af Amer) POC Glucose (mg/dL) 99 155 H Random Glucose Calcium Iron TIBC % Saturation Ferritin Total Bilirubin AST ALT Alkaline Phosphatase Total Protein Albumin Globulin Albumin/Globulin Ratio Urine Color Urine Appearance Urine pH Ur Specific [place] Urine Protein Urine Glucose (UA) Urine Ketones Urine Blood Urine Nitrate Urine Bilirubin Urine Urobilinogen Ur Leukocyte Esterase Urine RBC Urine WBC Ur Epithelial Cells Urine Bacteria Stool Occult Blood Negative 06/04/18 06/04/18 06/04/18 06:01 08:20 08:20 WBC 11.1 H RBC 2.91 L Hgb 8.7 L Hct 26.4 L MCV 90.7 MCH 29.9 MCHC 33.0 RDW 15.3 H Plt Count 628 H MPV 8.6 Gran % 82.1 H Lymph % (Auto) 11.8 L [place] % (Auto) 4.9 Eos % (Auto) 1.0 L Baso % (Auto) 0.2 Gran # 9.15 H Lymph # (Auto) 1.3 [place] # (Auto) 0.6 Eos # (Auto) 0.1 Baso # (Auto) 0.02 Sodium 136 Potassium 3.6 Chloride 100 Carbon Dioxide 28 Anion Gap 12 BUN 13 Creatinine 0.7 L Est GFR ( Amer) > 60 Est GFR (Non-Af Amer) > 60 POC Glucose (mg/dL) 125 H Random Glucose 124 H Calcium 9.4 Iron TIBC % Saturation Ferritin 263.0 Total Bilirubin 1.1 AST 74 H D ALT 59 H Alkaline Phosphatase 109 Total Protein 7.0 Albumin 3.2 Globulin 3.8 Albumin/Globulin Ratio 0.8 L Urine Color Urine Appearance Urine pH Ur Specific [place] Urine Protein Urine Glucose (UA) Urine Ketones Urine Blood Urine Nitrate Urine Bilirubin Urine Urobilinogen Ur Leukocyte Esterase Urine RBC Urine WBC Ur Epithelial Cells Urine Bacteria Stool Occult Blood 06/04/18 06/04/18 06/04/18 08:20 11:16 12:30 WBC RBC Hgb Hct MCV MCH MCHC RDW Plt Count MPV Gran % Lymph % (Auto) [place] % (Auto) Eos % (Auto) Baso % (Auto) Gran # Lymph # (Auto) [place] # (Auto) Eos # (Auto) Baso # (Auto) Sodium Potassium Chloride Carbon Dioxide Anion Gap BUN Creatinine Est GFR ( Amer) Est GFR (Non-Af Amer) POC Glucose (mg/dL) 110 Random Glucose Calcium Iron 37 L TIBC 208 L % Saturation 18 L Ferritin Total Bilirubin AST ALT Alkaline Phosphatase Total Protein Albumin Globulin Albumin/Globulin Ratio Urine Color Yellow Urine Appearance Clear Urine pH 6.0 Ur Specific [place] 1.025 Urine Protein 30 H Urine Glucose (UA) Negative Urine Ketones Negative Urine Blood Negative Urine Nitrate Negative Urine Bilirubin Negative Urine Urobilinogen 4.0 H Ur Leukocyte Esterase Small H Urine RBC Negative Urine WBC 10 - 15 Ur Epithelial Cells 4 - 5 Urine Bacteria Few Stool Occult Blood Attending/Attestation - Attestation I have personally seen and examined this patient.: Yes I have fully participated in the care of the patient.: Yes I have reviewed all pertinent clinical information: Yes Notes (Text): 06/03/18 73 year old male with past medical history of seizure and throat cancer s/p tracheostomy who presented with dysphagia. He is s/p G-tube and trach. He is s/p antibiotics treatment for pneumonia. He was transferred to TCU for rehab therapy. Hematology / oncology is following as well as radiation oncology. He is on iron supplements for anemia. He is on keppra and phenytoin for seizure. Ashley Ball MD Hospitalist.
[2018-06-03] MEDS: Ferrous Sulfate 300 mg/5 mL Liq UD PO SCH (18:12)
[2018-06-03] MEDS: levETIRAcetam 500mg IVPB 500 MG/100 ML BAG IVPB SCH (21:17)
--- NOTE | 2018-06-03 21:20 | CP.PCM.CON ---
<Connor Sharp - Last Filed: 06/03/18 22:01> History of Present Illness - History of Present Illness History of Present Illness: Connor Sharp PGY2 Heme/Onc Consult Note for Dr. Alexandra Mr. 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 Surgery team placed gastric tube for feedings to bypass the obstructing mass. Patient was transferred to TCU for further rehab. Radiation oncology team was following the patient for possible re-irradiation. Per note, team is awaiting radiation records from Dr. Stevens's office. 12-pt ROS was attempted but could not be reviewed due to his hx of tracheostomy. PMH: As above PSH: Laryngectomy, tracheostomy Meds: As per MAR, reviewed Allergies: NKDA SHx: Prior heavy tobacco use, denies current EtOH or drug use FHx: Mother, colon CA. Brother, liver CA Review of Systems - Review of Systems Systems not reviewed;Unavailable: Other (s/p trach) Past Patient History - Past Medical History & Family History Past Medical History?: Yes - Past Social History Smoking Status: Former Smoker Alcohol: None Drugs: Denies - CARDIAC Hx Hypertension: Yes - PULMONARY Hx Chronic Obstructive Pulmonary Disease (COPD): Yes Other/Comment: Laryngeal CA s/p laryngectomy and tracheostomy - NEUROLOGICAL Hx Neurological Disorder: Yes Hx Seizures: Yes (Well controlled with medication) - HEENT Hx HEENT Problems: Yes Other/Comment: blurry vision mild - RENAL Hx Chronic Kidney Disease: No - ENDOCRINE/METABOLIC Hx Diabetes Mellitus Type 2: Yes (DIET CONTROLLED) - HEMATOLOGICAL/ONCOLOGICAL Hx Cancer: Yes (Throat cancer) - INTEGUMENTARY Hx Dermatological Problems: No Other/Comment: Dry skin scattered throughout body - MUSCULOSKELETAL/RHEUMATOLOGICAL Hx Falls: Yes - GASTROINTESTINAL Hx Gastrointestinal Disorders: Yes (G tube) - GENITOURINARY/GYNECOLOGICAL Hx Genitourinary Disorders: No - PSYCHIATRIC Hx Psychophysiologic Disorder: No - SURGICAL HISTORY Hx Surgeries: Yes - ANESTHESIA Hx Anesthesia Reactions: No Hx Malignant Hyperthermia: No Meds Allergies/Adverse Reactions: Allergies Allergy/AdvReac Type Severity Reaction Status Date / Time No Known Allergies Allergy Verified 06/03/18 00:01 - Medications Medications: Current Medications Enoxaparin Sodium (Lovenox) 40 mg SC 0600 [facility] PRN Reason: Protocol Ferrous Sulfate (Feosol Liq) 300 mg PO TID [facility] Last Admin: 06/03/18 18:12 Dose: 300 mg Levetiracetam (Keppra 500mg Ivpb) 500 mg in 100 mls @ 400 mls/hr IVPB Q12 [facility] Metoclopramide HCl (Reglan) 5 mg IVP ACHS [facility] PRN Reason: Protocol Last Admin: 06/03/18 18:03 Dose: 5 mg Pantoprazole Sodium (Protonix Susp) 40 mg GT 0600 N[facility]EN PRN Reason: Protocol Last Admin: 06/03/18 05:48 Dose: 40 mg Phenytoin (Dilantin) 100 mg GT Q8 [facility] PRN Reason: Protocol Last Admin: 06/03/18 14:07 Dose: 100 mg Physical Exam - Constitutional Appears: Non-toxic, No Acute Distress - Head Exam Head Exam: NORMAL INSPECTION - Eye Exam Eye Exam: Normal appearance - ENT Exam ENT Exam: Mucous Membranes Dry Additional comments: s/p tracheostomy - Neck Exam Neck exam: Positive for: Full Rom - Respiratory Exam Respiratory Exam: NORMAL BREATHING PATTERN. absent: Rhonchi, Wheezes - Cardiovascular Exam Cardiovascular Exam: RRR, +S1, +S2 - GI/Abdominal Exam GI & Abdominal Exam: Soft. absent: Distended, Tenderness Additional comments: g-tube in place - Extremities Exam Extremities exam: Positive for: normal inspection - Back Exam Back exam: NORMAL INSPECTION - Neurological Exam Neurological exam: Alert - Psychiatric Exam Psychiatric exam: Normal Mood - Skin Skin Exam: Normal Color Results - Vital Signs Recent Vital Signs: Last Vital Signs Temp 99.6 F 06/03/18 10:00 Pulse 78 06/03/18 10:00 Resp 20 06/03/18 10:00 BP 122/62 06/03/18 10:00 Pulse Ox 98 06/03/18 10:00 - Labs Labs: Laboratory Results - last 24 hr 06/03/18 06/03/18 06/03/18 05:55 12:00 16:44 POC Glucose (mg/dL) 130 H 161 H 99 06/03/18 21:15 POC Glucose (mg/dL) 155 H Assessment & Plan - Assessment and Plan (Free Text) Assessment: 73 yo M with PMHx of laryngeal cancer (Dx 2013) s/p largynectomy, concurrent rajeev mo/XRT s/p tracheostomy currently admitted with progressive dysphagia and was subsequently found to have a large soft tissue mass on CT. Biopsy of mass showed highly atypical cells suspicious for SCC. Patient being followed by [facility] for possible re-irradiation therapy. Patient underwent open gastrostomy tube placement for feedings. Plan: - Recommend radiation oncology consult for following up on re-irradiation possibility - Chemotherapy vs palliative chemotherapy depending on original radiation segura - Recommend outpatient PET/CT to determine if metastasis is present - Follow up with oncology and rad-onc on discharge - Further care as per primary medical team - Further recs per Dr. Alexandra Case was reviewed and discussed with attending, Dr. Ibrahima Sharp PGY2 <Chiquis Alexandra P - Last Filed: 06/06/18 23:15> Meds - Medications Medications: Current Medications Ciprofloxacin (Cipro) 500 mg PO Q12 [facility]AVEEN; Protocol Stop: 06/07/18 20:28 Last Admin: 06/06/18 22:20 Dose: 500 mg Enoxaparin Sodium (Lovenox) 40 mg SC 0600 NAVEEN; Protocol Last Admin: 06/06/18 05:23 Dose: 40 mg Ferrous Sulfate (Feosol Liq) 300 mg PO TID [facility] Last Admin: 06/06/18 17:50 Dose: 300 mg Levetiracetam (Keppra) 500 mg PO BID [facility] Last Admin: 06/06/18 17:50 Dose: 500 mg Metoclopramide HCl (Reglan) 5 mg GT ACHS [facility]EN; Protocol Last Admin: 06/06/18 21:25 Dose: 5 mg Pantoprazole Sodium (Protonix Susp) 40 mg GT 0600 NAVEEN; Protocol Last Admin: 06/06/18 05:24 Dose: 40 mg Phenytoin (Dilantin) 100 mg GT Q8 [facility]AVEEN; Protocol Last Admin: 06/06/18 21:25 Dose: 100 mg Results - Vital Signs Recent Vital Signs: Last Vital Signs Temp 98.5 F 06/06/18 16:00 Pulse 79 06/06/18 16:00 Resp 20 06/06/18 16:00 BP 129/76 06/06/18 16:00 Pulse Ox 96 06/06/18 16:00 - Labs Result Diagrams: 06/06/18 07:00 06/06/18 07:00 Labs: Laboratory Results - last 24 hr 06/06/18 06/06/18 06/06/18 05:46 07:00 07:00 WBC 12.7 H RBC 2.92 L Hgb 8.5 L Hct 26.3 L MCV 90.1 MCH 29.1 MCHC 32.3 RDW 15.3 H Plt Count 636 H MPV 8.7 Gran % 79.6 H Lymph % (Auto) 12.6 L Mckean % (Auto) 6.6 H Eos % (Auto) 1.0 L Baso % (Auto) 0.2 Gran # 10.06 H Lymph # (Auto) 1.6 Mckean # (Auto) 0.8 H Eos # (Auto) 0.1 Baso # (Auto) 0.02 Sodium 134 Potassium 3.6 Chloride 101 Carbon Dioxide 28 Anion Gap 9 L BUN 14 Creatinine 0.6 L Est GFR ( Amer) > 60 Est GFR (Non-Af Amer) > 60 POC Glucose (mg/dL) 128 H Random Glucose 145 H Calcium 9.3 Total Bilirubin 1.0 AST 65 H ALT 57 H Alkaline Phosphatase 109 Total Protein 7.0 Albumin 3.2 Globulin 3.8 Albumin/Globulin Ratio 0.8 L 06/06/18 06/06/18 06/06/18 11:26 16:38 21:10 WBC RBC Hgb Hct MCV MCH MCHC RDW Plt Count MPV Gran % Lymph % (Auto) Mckean % (Auto) Eos % (Auto) Baso % (Auto) Gran # Lymph # (Auto) Mckean # (Auto) Eos # (Auto) Baso # (Auto) Sodium Potassium Chloride Carbon Dioxide Anion Gap BUN Creatinine Est GFR ( Amer) Est GFR (Non-Af Amer) POC Glucose (mg/dL) 131 H 105 128 H Random Glucose Calcium Total Bilirubin AST ALT Alkaline Phosphatase Total Protein Albumin Globulin Albumin/Globulin Ratio Attending/Attestation - Attestation I have personally seen and examined this patient.: Yes I have fully participated in the care of the patient.: Yes I have reviewed all pertinent clinical information: Yes
[2018-06-04 08:31] LABS: BASO # 0.02 K/mm3 (0.0-2.0); BASO % 0.2 % (0.0-3.0); EOS # 0.1 (0.0-0.7); GRAN # 9.15 (1.4-6.5); GRAN % 82.1 % (50.0-68.0); HEMOGLOBIN 8.7 g/dL (14.0-18.0); LYMPH # 1.3 (1.2-3.4); LYMPH % 11.8 % (22.0-35.0); MEAN CELL VOLUME 90.7 fl (80.0-105.0); MEAN CORPUSCULAR HEMOGLOBIN 29.9 pg (25.0-35.0); MEAN PLATELET VOLUME 8.6 fl (7.0-11.0); MONO # 0.6 (0.1-0.6); MONO % 4.9 % (1.0-6.0); RBC 2.91 10^6/uL (3.5-6.1); RED CELL DISTRIBUTION WIDTH 15.3 % (11.5-14.5); WHITE BLOOD COUNT 11.1 10^3/ul (4.5-11.0)
[2018-06-04 08:40] LABS: IRON 37 ug/dL (45-180)
[2018-06-04 08:47] LABS: ALB/GLOB RATIO 0.8 (1.1-1.8); ALBUMIN 3.2 g/dL (3.0-4.8); ALT/SGPT 59 U/L (7-56); AST/SGOT 74 U/L (17-59); BLOOD UREA NITROGEN 13 mg/dL (7-21); CALCIUM 9.4 mg/dL (8.4-10.5); GFR NON-AFRICAN AMERICAN > 60
[2018-06-04 08:49] LABS: % IRON SATURATION 18 % (20-55); TOTAL IRON BINDING CAPACITY 208 ug/dL (261-462)
--- NOTE | 2018-06-04 10:39 | CP.PCM.PN ---
<Connor Sharp - Last Filed: 06/04/18 13:09> Subjective - Date & Time of Evaluation Date of Evaluation: 06/04/18 Time of Evaluation: 09:36 - Subjective Subjective: Connor Sharp PGY2 Heme/Onc Progress Note for Dr. Alexandra Patient was seen and examined at bedside. He is not verbalizing due to his tracheostomy but is able to express that he has no complaints. Nursing and SW notes reviewed. Dr. Goldberg was contacted and she states that the patient needs a PET scan prior to radiation and that she has not yet received chart w/ prior radiation history; the PET scan will be done 48 hrs after d/c from TCU and then a decision will be made regarding management depending on results. Currently, estimated date of d/c is 06/06/18. Objective - Vital Signs/Intake and Output Vital Signs (last 24 hours): Temp Pulse Resp BP Pulse Ox 99 F 75 20 115/67 96 06/04/18 06:00 06/04/18 06:00 06/04/18 06:00 06/04/18 06:00 06/04/18 06:00 Intake and Output: 06/04/18 06/04/18 06:59 18:59 Intake Total 420 Balance 420 - Medications Medications: Current Medications Enoxaparin Sodium (Lovenox) 40 mg SC 0600 NAVEEN; Protocol Ferrous Sulfate (Feosol Liq) 300 mg PO TID [facility] Last Admin: 06/03/18 18:12 Dose: 300 mg Levetiracetam (Keppra 500mg Ivpb) 500 mg in 100 mls @ 400 mls/hr IVPB Q12 [facility]AVEEN Last Admin: 06/03/18 21:17 Dose: 400 mls/hr Metoclopramide HCl (Reglan) 5 mg IVP ACHS [facility]AVEEN; Protocol Last Admin: 06/04/18 08:25 Dose: 5 mg Pantoprazole Sodium (Protonix Susp) 40 mg GT 0600 NAVEEN; Protocol Last Admin: 06/03/18 05:48 Dose: 40 mg Phenytoin (Dilantin) 100 mg GT Q8 NAVEEN; Protocol Last Admin: 06/03/18 21:19 Dose: 100 mg - Labs Labs: 06/04/18 08:20 06/04/18 08:20 - Additional Findings Additional findings: - Constitutional Appears: Non-toxic, No Acute Distress - Head Exam Head Exam: NORMAL INSPECTION - Eye Exam Eye Exam: Normal appearance - ENT Exam ENT Exam: Mucous Membranes Dry Additional comments: s/p tracheostomy - Neck Exam Neck exam: Positive for: Full Rom - Respiratory Exam Respiratory Exam: NORMAL BREATHING PATTERN. absent: Rhonchi, Wheezes - Cardiovascular Exam Cardiovascular Exam: RRR, +S1, +S2 - GI/Abdominal Exam GI & Abdominal Exam: Soft. absent: Distended, Tenderness Additional comments: g-tube in place - Extremities Exam Extremities exam: Positive for: normal inspection Additional comments: midline in place RUE - Back Exam Back exam: NORMAL INSPECTION - Neurological Exam Neurological exam: Alert - Psychiatric Exam Psychiatric exam: Normal Mood - Skin Skin Exam: Normal Color Assessment and Plan - Assessment and Plan (Free Text) Assessment: 73 yo M with 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 Biopsy of mass showed highly atypical cells suspicious for SCC. Patient underwent open gastrostomy tube placement for feedings. Awaiting d/c from TCU for PET/CT as advised by [facility] for possible re-irradiation therapy. Plan: - Outpatient PET/CT 48hrs post d/c to determine for metastasis - Recommend radiation oncology consult for following up on re-irradiation possibility - Chemotherapy vs immunotherapy depending on original radiation segura and results of PET/CT - Follow up with oncology and rad-onc on discharge - Further care as per primary medical team - Further recs per Dr. Alexandra Case was reviewed and discussed with attending, Dr. Ibrahima Sharp PGY2 <Chiquis Alexandra P - Last Filed: 06/06/18 23:11> Objective - Vital Signs/Intake and Output Vital Signs (last 24 hours): Temp Pulse Resp BP Pulse Ox 98.5 F 79 20 129/76 96 06/06/18 16:00 06/06/18 16:00 06/06/18 16:00 06/06/18 16:00 06/06/18 16:00 Intake and Output: 06/06/18 06/07/18 18:59 06:59 Intake Total 420 Balance 420 - Medications Medications: Current Medications Ciprofloxacin (Cipro) 500 mg PO Q12 NAVEEN; Protocol Stop: 06/07/18 20:28 Last Admin: 06/06/18 22:20 Dose: 500 mg Enoxaparin Sodium (Lovenox) 40 mg SC 0600 NAVEEN; Protocol Last Admin: 06/06/18 05:23 Dose: 40 mg Ferrous Sulfate (Feosol Liq) 300 mg PO TID [facility] Last Admin: 06/06/18 17:50 Dose: 300 mg Levetiracetam (Keppra) 500 mg PO BID [facility] Last Admin: 06/06/18 17:50 Dose: 500 mg Metoclopramide HCl (Reglan) 5 mg GT ACHS NAVEEN; Protocol Last Admin: 06/06/18 21:25 Dose: 5 mg Pantoprazole Sodium (Protonix Susp) 40 mg GT 0600 NAVEEN; Protocol Last Admin: 06/06/18 05:24 Dose: 40 mg Phenytoin (Dilantin) 100 mg GT Q8 NAVEEN; Protocol Last Admin: 06/06/18 21:25 Dose: 100 mg - Labs Labs: 06/06/18 07:00 06/06/18 07:00 Attending/Attestation - Attestation I have personally seen and examined this patient.: Yes I have fully participated in the care of the patient.: Yes I have reviewed all pertinent clinical information, including history, physical exam and plan: Yes
[2018-06-04 13:20] LABS: URINE BILIRUBIN NEGATIVE (NEGATIVE); URINE BLOOD NEGATIVE (NEGATIVE); URINE GLUCOSE (UA) NEGATIVE (NEGATIVE); URINE LEUKOCYTE ESTERASE SMALL Leu/uL (NEGATIVE); URINE PROTEIN 30 mg/dL (<30 mg/dL)
[2018-06-04 13:24] LABS: URINE APPEARANCE CLEAR (CLEAR); URINE COLOR YELLOW (YELLOW)
[2018-06-04 13:32] LABS: URINE RBC NEGATIVE /hpf (0-2)
[2018-06-04 13:33] LABS: URINE BACTERIA FEW (NEG)
[2018-06-04] MEDS: Phenytoin 100 mg/4 ml Oral Susp UD GT SCH ×2 (14:00→21:40)
[2018-06-04] MEDS: Ferrous Sulfate 300 mg/5 mL Liq UD PO SCH ×2 (14:00→18:00)
[2018-06-04] MEDS: levETIRAcetam 500mg IVPB 500 MG/100 ML BAG IVPB SCH (21:40)
[2018-06-05] MEDS: Phenytoin 100 mg/4 ml Oral Susp UD GT SCH ×3 (06:18→21:37)
[2018-06-05] MEDS: Pantoprazole 40 mg Susp UD GT SCH (06:19)
[2018-06-05] MEDS: Enoxaparin 40 mg Syringe SC SCH (06:51)
[2018-06-05 07:10] LABS: BASO # 0.02 K/mm3 (0.0-2.0); BASO % 0.1 % (0.0-3.0); EOS # 0.1 (0.0-0.7); EOS % 0.7 % (1.5-5.0); GRAN # 11.14 (1.4-6.5); GRAN % 81.7 % (50.0-68.0); HEMOGLOBIN 8.8 g/dL (14.0-18.0); LYMPH # 1.2 (1.2-3.4); LYMPH % 8.8 % (22.0-35.0); MEAN CELL VOLUME 89.7 fl (80.0-105.0); MEAN CORPUSCULAR HEMOGLOBIN 29.1 pg (25.0-35.0); MEAN CORPUSCULAR HGB CONC 32.5 g/dl (31.0-37.0); MEAN PLATELET VOLUME 8.8 fl (7.0-11.0); MONO # 1.2 (0.1-0.6); MONO % 8.7 % (1.0-6.0); RBC 3.02 10^6/uL (3.5-6.1); RED CELL DISTRIBUTION WIDTH 15.4 % (11.5-14.5); WHITE BLOOD COUNT 13.6 10^3/ul (4.5-11.0)
[2018-06-05 07:15] LABS: ALB/GLOB RATIO 0.8 (1.1-1.8); ALBUMIN 3.2 g/dL (3.0-4.8); ALT/SGPT 60 U/L (7-56); AST/SGOT 66 U/L (17-59); BLOOD UREA NITROGEN 12 mg/dL (7-21); CALCIUM 9.4 mg/dL (8.4-10.5); GFR NON-AFRICAN AMERICAN > 60
[2018-06-05] MEDS: Ferrous Sulfate 300 mg/5 mL Liq UD PO SCH ×3 (10:27→17:08)
[2018-06-05] MEDS: levETIRAcetam 500 mg/5ml UD cups PO SCH ×2 (10:27→17:08)
[2018-06-05] MEDS: Metoclopramide 5 mg/5 ml Oral Sol GT SCH ×3 (11:22→21:37)
--- NOTE | 2018-06-05 14:15 | CP.PCM.PN ---
<Netta Garay - Last Filed: 06/05/18 17:14> Subjective - Date & Time of Evaluation Date of Evaluation: 06/05/18 Time of Evaluation: 14:06 - Subjective Subjective: Netta Garay PGY1 Progress Note for Dr. Ball Pt was examined at bedside this morning. He was sitting comfortably in his chair. Two family members (cousins?) were present. Pt denied any chest pain, dizziness, shortness of breath, abdominal pain, nausea, vomiting, diarrhea. He had no complaints today. Objective - Vital Signs/Intake and Output Vital Signs (last 24 hours): Temp Pulse Resp BP Pulse Ox 98.1 F 113 H 18 137/74 100 06/04/18 16:00 06/05/18 12:32 06/04/18 16:00 06/04/18 16:00 06/05/18 12:32 - Medications Medications: Current Medications Enoxaparin Sodium (Lovenox) 40 mg SC 0600 NAVEEN; Protocol Last Admin: 06/05/18 06:51 Dose: 40 mg Ferrous Sulfate (Feosol Liq) 300 mg PO TID [facility] Last Admin: 06/05/18 10:27 Dose: 300 mg Levetiracetam (Keppra) 500 mg PO BID [facility] Last Admin: 06/05/18 10:27 Dose: 500 mg Metoclopramide HCl (Reglan) 5 mg GT ACHS NAVEEN; Protocol Last Admin: 06/05/18 11:22 Dose: 5 mg Pantoprazole Sodium (Protonix Susp) 40 mg GT 0600 NAVEEN; Protocol Last Admin: 06/05/18 06:19 Dose: 40 mg Phenytoin (Dilantin) 100 mg GT Q8 NAVEEN; Protocol Last Admin: 06/05/18 06:18 Dose: 100 mg - Labs Labs: 06/05/18 06:40 06/05/18 06:40 - Constitutional Appears: Well, No Acute Distress - Head Exam Head Exam: ATRAUMATIC, NORMOCEPHALIC - Neck Exam Additional comments: trach site clean, dry, intact - Respiratory Exam Respiratory Exam: Clear to Ausculation Bilateral, NORMAL BREATHING PATTERN - Cardiovascular Exam Cardiovascular Exam: REGULAR RHYTHM, +S1, +S2 - GI/Abdominal Exam GI & Abdominal Exam: Soft, Normal Bowel Sounds. absent: Tenderness - Extremities Exam Extremities Exam: absent: Pedal Edema - Neurological Exam Neurological Exam: Alert, Awake - Psychiatric Exam Psychiatric exam: Normal Affect, Normal Mood Assessment and Plan - Assessment and Plan (Free Text) Assessment: Pt is a 73 yo male with a PMH of seizure and throat cancer s/p tracheostomy who presented with complaints of dysphagia, was transferred to the TCU for radiation treatment. Plan: Dysphagia - Reglan 5mg IVP ACHS - Aspiration precautions - Keep HOB elevated - MRI Orbit, Face and Neck: mass at site of laryngectomy above tracheostomy. Well-circumscribed borders, no obvious invasion of adjacent fat planes. - G tube feeds: Vital bolus feeds, 3 per day. Pt educated on how to self administer feeds upon d/c - Heme/Onc, Dr. Johnson: f/u outpt upon discharge with Dr. Ede [place] or Dr. Alexandra. Recommend outpt PET/CT. Anemia, Normocytic - H&H 8.8/27.1 - pt asymptomatic and hemodynamically stable - continue Fe PO - continue to monitor History of Seizures - continue Phenytoin 100mg GT q8 - start Levitiracetam 500mg PO daily - Seizure precautions History of COPD - Duonebs TID Ppx - Protonix - SCDs - lovenox 40 Dispo: - PT/OT: home w/ services - pt educated on self administering feeds upon d/c - [facility] to see if pt can extend TCU stay: paperwork filled out, will report tomorrow if extended stay is approved Pt seen, examined, assessment, and plan discussed with Dr Ball. <Ashley Ball - Last Filed: 06/06/18 07:47> Objective - Vital Signs/Intake and Output Vital Signs (last 24 hours): Temp Pulse Resp BP Pulse Ox 98.5 F 86 18 109/56 L 97 06/06/18 06:00 06/06/18 06:00 06/06/18 06:00 06/06/18 06:00 06/06/18 06:00 - Medications Medications: Current Medications Enoxaparin Sodium (Lovenox) 40 mg SC 0600 [facility]; Protocol Last Admin: 06/06/18 05:23 Dose: 40 mg Ferrous Sulfate (Feosol Liq) 300 mg PO TID [facility] Last Admin: 06/05/18 17:08 Dose: 300 mg Levetiracetam (Keppra) 500 mg PO BID [facility] Last Admin: 06/05/18 17:08 Dose: 500 mg Metoclopramide HCl (Reglan) 5 mg GT ACHS NAVEEN; Protocol Last Admin: 06/06/18 06:43 Dose: 5 mg Pantoprazole Sodium (Protonix Susp) 40 mg GT 0600 NAVEEN; Protocol Last Admin: 06/06/18 05:24 Dose: 40 mg Phenytoin (Dilantin) 100 mg GT Q8 NAVEEN; Protocol Last Admin: 06/06/18 05:23 Dose: 100 mg - Labs Labs: 06/06/18 07:00 06/05/18 06:40 Attending/Attestation - Attestation I have personally seen and examined this patient.: Yes I have fully participated in the care of the patient.: Yes I have reviewed all pertinent clinical information, including history, physical exam and plan: Yes Notes (Text): 06/05/18 73 year old male with past medical history of seizure and throat cancer s/p tracheostomy who presented with dysphagia. He is s/p G-tube and trach. He is s/p antibiotics treatment for pneumonia. He was transferred to TCU for rehab therapy. Hematology / oncology is following as well as radiation oncology. He is on iron supplements for anemia and keppra and phenytoin for seizure. Patient is tolerating feeds. Family is at bedside. Ashley Ball MD Hospitalist.
[2018-06-06] MEDS: Phenytoin 100 mg/4 ml Oral Susp UD GT SCH ×3 (05:23→21:25)
[2018-06-06] MEDS: Enoxaparin 40 mg Syringe SC SCH (05:23)
[2018-06-06] MEDS: Pantoprazole 40 mg Susp UD GT SCH (05:24)
[2018-06-06] MEDS: Metoclopramide 5 mg/5 ml Oral Sol GT SCH ×4 (06:43→21:25)
[2018-06-06 07:37] LABS: BASO # 0.02 K/mm3 (0.0-2.0); BASO % 0.2 % (0.0-3.0); EOS # 0.1 (0.0-0.7); GRAN # 10.06 (1.4-6.5); GRAN % 79.6 % (50.0-68.0); HEMOGLOBIN 8.5 g/dL (14.0-18.0); LYMPH # 1.6 (1.2-3.4); LYMPH % 12.6 % (22.0-35.0); MEAN CELL VOLUME 90.1 fl (80.0-105.0); MEAN CORPUSCULAR HEMOGLOBIN 29.1 pg (25.0-35.0); MEAN CORPUSCULAR HGB CONC 32.3 g/dl (31.0-37.0); MEAN PLATELET VOLUME 8.7 fl (7.0-11.0); MONO # 0.8 (0.1-0.6); MONO % 6.6 % (1.0-6.0); RBC 2.92 10^6/uL (3.5-6.1); RED CELL DISTRIBUTION WIDTH 15.3 % (11.5-14.5); WHITE BLOOD COUNT 12.7 10^3/ul (4.5-11.0)
[2018-06-06 07:56] LABS: ALB/GLOB RATIO 0.8 (1.1-1.8); ALBUMIN 3.2 g/dL (3.0-4.8); ALT/SGPT 57 U/L (7-56); AST/SGOT 65 U/L (17-59); BLOOD UREA NITROGEN 14 mg/dL (7-21); CALCIUM 9.3 mg/dL (8.4-10.5); GFR NON-AFRICAN AMERICAN > 60
[2018-06-06] MEDS: levETIRAcetam 500 mg/5ml UD cups PO SCH ×2 (10:03→17:50)
[2018-06-06] MEDS: Ferrous Sulfate 300 mg/5 mL Liq UD PO SCH ×3 (10:03→17:50)
[2018-06-07] MEDS: Pantoprazole 40 mg Susp UD GT SCH (05:19)
[2018-06-07] MEDS: Phenytoin 100 mg/4 ml Oral Susp UD GT SCH ×3 (05:19→21:15)
[2018-06-07] MEDS: Enoxaparin 40 mg Syringe SC SCH (05:19)
[2018-06-07 07:17] LABS: BASO # 0.01 K/mm3 (0.0-2.0); BASO % 0.1 % (0.0-3.0); EOS # 0.1 (0.0-0.7); GRAN # 10.05 (1.4-6.5); GRAN % 79.5 % (50.0-68.0); HEMOGLOBIN 8.7 g/dL (14.0-18.0); LYMPH # 1.3 (1.2-3.4); MEAN CELL VOLUME 89.5 fl (80.0-105.0); MEAN CORPUSCULAR HEMOGLOBIN 29.4 pg (25.0-35.0); MEAN CORPUSCULAR HGB CONC 32.8 g/dl (31.0-37.0); MEAN PLATELET VOLUME 8.9 fl (7.0-11.0); MONO # 1.2 (0.1-0.6); MONO % 9.4 % (1.0-6.0); RBC 2.96 10^6/uL (3.5-6.1); RED CELL DISTRIBUTION WIDTH 15.2 % (11.5-14.5); WHITE BLOOD COUNT 12.7 10^3/ul (4.5-11.0)
[2018-06-07 07:40] LABS: ALB/GLOB RATIO 0.8 (1.1-1.8); ALBUMIN 3.2 g/dL (3.0-4.8); ALT/SGPT 50 U/L (7-56); AST/SGOT 47 U/L (17-59); BLOOD UREA NITROGEN 11 mg/dL (7-21); CALCIUM 9.3 mg/dL (8.4-10.5); GFR NON-AFRICAN AMERICAN > 60
[2018-06-07] MEDS: Metoclopramide 5 mg/5 ml Oral Sol GT SCH ×4 (08:24→21:15)
[2018-06-07] MEDS: Ferrous Sulfate 300 mg/5 mL Liq UD PO SCH ×3 (10:23→17:48)
[2018-06-07] MEDS: levETIRAcetam 500 mg/5ml UD cups PO SCH ×2 (10:23→17:48)
--- NOTE | 2018-06-07 14:41 | CP.PCM.PN ---
<Netta Garay - Last Filed: 06/07/18 15:08> Subjective - Date & Time of Evaluation Date of Evaluation: 06/07/18 Time of Evaluation: 11:00 - Subjective Subjective: Netta Garay PGY [address] Ball Pt was examined at bedside this morning. He did not have any complaints today. He denied any headache, abdominal pain, chest pain, shortness of breath, nausea, vomiting, diarrhea, dysuria. As per nursing report, he did not want to take all of his feeds yesterday, but nurse was able to have him take 2 of 3. Objective - Vital Signs/Intake and Output Vital Signs (last 24 hours): Temp Pulse Resp BP Pulse Ox 98.5 F 79 20 129/76 96 06/06/18 16:00 06/06/18 16:00 06/06/18 16:00 06/06/18 16:00 06/06/18 16:00 Intake and Output: 06/07/18 06/07/18 06:59 18:59 Intake Total 420 Balance 420 - Medications Medications: Current Medications Ciprofloxacin (Cipro) 500 mg PO Q12 NAVEEN; Protocol Stop: 06/07/18 20:28 Last Admin: 06/07/18 10:22 Dose: 500 mg Enoxaparin Sodium (Lovenox) 40 mg SC 0600 NAVEEN; Protocol Last Admin: 06/07/18 05:19 Dose: 40 mg Ferrous Sulfate (Feosol Liq) 300 mg PO TID [facility] Last Admin: 06/07/18 13:16 Dose: 300 mg Levetiracetam (Keppra) 500 mg PO BID [facility]EN Last Admin: 06/07/18 10:23 Dose: 500 mg Metoclopramide HCl (Reglan) 5 mg GT ACHS NAVEEN; Protocol Last Admin: 06/07/18 11:39 Dose: 5 mg Pantoprazole Sodium (Protonix Susp) 40 mg GT 0600 NAVEEN; Protocol Last Admin: 06/07/18 05:19 Dose: 40 mg Phenytoin (Dilantin) 100 mg GT Q8 NAVEEN; Protocol Last Admin: 06/07/18 13:16 Dose: 100 mg - Labs Labs: 06/07/18 06:30 06/07/18 06:30 - Constitutional Appears: Well, No Acute Distress - Head Exam Head Exam: ATRAUMATIC, NORMOCEPHALIC - Eye Exam Eye Exam: EOMI, Normal appearance, PERRL Pupil Exam: NORMAL ACCOMODATION - ENT Exam ENT Exam: Mucous Membranes Moist Additional comments: trach site clean, dry, intact - Neck Exam Additional comments: trach site clean, dry, intact - Respiratory Exam Respiratory Exam: Clear to Ausculation Bilateral, NORMAL BREATHING PATTERN. absent: Rhonchi, Wheezes, Stridor - Cardiovascular Exam Cardiovascular Exam: REGULAR RHYTHM, +S1, +S2. absent: Gallop, Rubs, Murmur - GI/Abdominal Exam GI & Abdominal Exam: Soft, Normal Bowel Sounds. absent: Distended, Tenderness - Extremities Exam Extremities Exam: Full ROM, Normal Inspection. absent: Calf Tenderness, Pedal Edema - Neurological Exam Neurological Exam: Alert, Awake. absent: Altered - Psychiatric Exam Psychiatric exam: Normal Affect, Normal Mood. absent: Anxious, Depressed Assessment and Plan - Assessment and Plan (Free Text) Assessment: Pt is a 73 yo male with a PMH of seizure and throat cancer s/p tracheostomy who presented with complaints of dysphagia, was transferred to the TCU for radiation treatment. Plan: Dysphagia - Reglan 5mg GT ACHS - Aspiration precautions - Keep HOB elevated - MRI Orbit, Face and Neck: mass at site of laryngectomy above tracheostomy. Well-circumscribed borders, no obvious invasion of adjacent fat planes. - G tube feeds: Vital bolus feeds, 3 per day. Pt educated on how to self administer feeds upon d/c - Heme/Onc, Dr. Johnson: f/u outpt upon discharge with Dr. Ede [place] or Dr. Alexandra. Recommend outpt PET/CT. Anemia, Normocytic - H&H 8.7/26.5 - pt asymptomatic and hemodynamically stable - continue Fe - continue to monitor - Heme/Onc, Dr. Alexandra consulted, f/u recs UTI - UA 06/04: small leukocyte esterase - UCx: E.coli, >100,000 sensitive to bactrim, ertapenem, cipro, cefepime, nitro, gentamicin, meropenem - pt asymptomatic - start bactrim BID History of Seizures - continue Phenytoin 100mg GT q8 - start Levitiracetam 500mg PO daily - Seizure precautions History of COPD - Duonebs TID Ppx - Protonix - SCDs - lovenox 40 Dispo: - PT/OT: home w/ services - pt educated on self administering feeds upon d/c - SW extended TCU stay: tentative d/c date 06/12 Pt seen, examined, assessment, and plan discussed with Dr Ball. <Ashley Ball - Last Filed: 06/08/18 08:13> Objective - Vital Signs/Intake and Output Vital Signs (last 24 hours): Temp Pulse Resp BP Pulse Ox 99 F 91 H 20 126/73 98 06/07/18 15:58 06/07/18 15:58 06/07/18 15:58 06/07/18 15:58 06/07/18 15:58 - Medications Medications: Current Medications Enoxaparin Sodium (Lovenox) 40 mg SC 0600 NAVEEN; Protocol Last Admin: 06/08/18 05:21 Dose: 40 mg Ferrous Sulfate (Feosol Liq) 300 mg PO TID [facility] Last Admin: 06/07/18 17:48 Dose: 300 mg Levetiracetam (Keppra) 500 mg PO BID [facility]AVEEN Last Admin: 06/07/18 17:48 Dose: 500 mg Metoclopramide HCl (Reglan) 5 mg GT ACHS NAVEEN; Protocol Last Admin: 06/08/18 08:11 Dose: 5 mg Pantoprazole Sodium (Protonix Susp) 40 mg GT 0600 [facility]; Protocol Last Admin: 06/08/18 05:21 Dose: 40 mg Phenytoin (Dilantin) 100 mg GT Q8 NAVEEN; Protocol Last Admin: 06/08/18 05:20 Dose: 100 mg Trimethoprim/Sulfamethoxazole (Bactrim Ds Tab) 1 tab PO BID NAVEEN; Protocol Last Admin: 06/07/18 17:47 Dose: 1 tab - Labs Labs: 06/08/18 07:30 06/08/18 07:30 Attending/Attestation - Attestation I have personally seen and examined this patient.: Yes I have fully participated in the care of the patient.: Yes I have reviewed all pertinent clinical information, including history, physical exam and plan: Yes Notes (Text): 06/07/18 73 year old male with past medical history of seizure and throat cancer s/p tracheostomy who presented with dysphagia. He is s/p G-tube and trach. He is s/p antibiotics treatment for pneumonia. He was transferred to TCU for rehab therapy. Hematology / oncology is following as well as radiation oncology. He is on iron supplements for anemia and keppra and phenytoin for seizure. Patient is tolerating feeds. Started on bactrim for E Coli UTI. D/c planning next week 06/12. Ashley Ball MD Hospitalist.
[2018-06-07] MEDS: Tmp-Smz 800 mg-160 mg DS Tab PO SCH (17:47)
[2018-06-08] MEDS: Phenytoin 100 mg/4 ml Oral Susp UD GT SCH ×3 (05:20→21:15)
[2018-06-08] MEDS: Enoxaparin 40 mg Syringe SC SCH (05:21)
[2018-06-08] MEDS: Pantoprazole 40 mg Susp UD GT SCH (05:21)
[2018-06-08 07:52] LABS: BASO # 0.02 K/mm3 (0.0-2.0); BASO % 0.2 % (0.0-3.0); EOS # 0.1 (0.0-0.7); EOS % 0.7 % (1.5-5.0); GRAN # 10.05 (1.4-6.5); GRAN % 79.3 % (50.0-68.0); HEMOGLOBIN 8.7 g/dL (14.0-18.0); LYMPH # 1.3 (1.2-3.4); LYMPH % 9.9 % (22.0-35.0); MEAN CELL VOLUME 89.8 fl (80.0-105.0); MEAN CORPUSCULAR HEMOGLOBIN 29.5 pg (25.0-35.0); MEAN CORPUSCULAR HGB CONC 32.8 g/dl (31.0-37.0); MEAN PLATELET VOLUME 9.1 fl (7.0-11.0); MONO # 1.3 (0.1-0.6); MONO % 9.9 % (1.0-6.0); RBC 2.95 10^6/uL (3.5-6.1); RED CELL DISTRIBUTION WIDTH 15.2 % (11.5-14.5); WHITE BLOOD COUNT 12.7 10^3/ul (4.5-11.0)
[2018-06-08 08:07] LABS: ALB/GLOB RATIO 0.8 (1.1-1.8); ALBUMIN 3.2 g/dL (3.0-4.8); ALT/SGPT 45 U/L (7-56); AST/SGOT 50 U/L (17-59); BLOOD UREA NITROGEN 11 mg/dL (7-21); CALCIUM 9.5 mg/dL (8.4-10.5); GFR NON-AFRICAN AMERICAN > 60
[2018-06-08] MEDS: Metoclopramide 5 mg/5 ml Oral Sol GT SCH ×4 (08:11→21:15)
[2018-06-08] MEDS: Ferrous Sulfate 300 mg/5 mL Liq UD PO SCH ×3 (10:24→17:37)
[2018-06-08] MEDS: Tmp-Smz 800 mg-160 mg DS Tab PO SCH ×2 (10:28→17:37)
[2018-06-08] MEDS: levETIRAcetam 500 mg/5ml UD cups PO SCH ×2 (10:28→17:37)
[2018-06-09 04:29] LABS: BASO # 0.02 K/mm3 (0.0-2.0); BASO % 0.2 % (0.0-3.0); EOS # 0.1 (0.0-0.7); EOS % 0.6 % (1.5-5.0); GRAN # 9.4 (1.4-6.5); GRAN % 76.5 % (50.0-68.0); HEMOGLOBIN 8.7 g/dL (14.0-18.0); LYMPH # 1.6 (1.2-3.4); LYMPH % 12.9 % (22.0-35.0); MEAN CELL VOLUME 89.9 fl (80.0-105.0); MEAN CORPUSCULAR HEMOGLOBIN 29.3 pg (25.0-35.0); MEAN CORPUSCULAR HGB CONC 32.6 g/dl (31.0-37.0); MEAN PLATELET VOLUME 9.3 fl (7.0-11.0); MONO # 1.2 (0.1-0.6); MONO % 9.8 % (1.0-6.0); RBC 2.97 10^6/uL (3.5-6.1); WHITE BLOOD COUNT 12.3 10^3/ul (4.5-11.0)
[2018-06-09 04:30] LABS: ALB/GLOB RATIO 0.9 (1.1-1.8); ALBUMIN 3.3 g/dL (3.0-4.8); ALT/SGPT 47 U/L (7-56); AST/SGOT 53 U/L (17-59); BLOOD UREA NITROGEN 12 mg/dL (7-21); CALCIUM 9.8 mg/dL (8.4-10.5); GFR NON-AFRICAN AMERICAN > 60
[2018-06-09] MEDS: Enoxaparin 40 mg Syringe SC SCH (05:24)
[2018-06-09] MEDS: Phenytoin 100 mg/4 ml Oral Susp UD GT SCH ×3 (05:24→21:10)
[2018-06-09] MEDS: Pantoprazole 40 mg Susp UD GT SCH (05:24)
[2018-06-09] MEDS: Metoclopramide 5 mg/5 ml Oral Sol GT SCH ×4 (07:41→21:10)
[2018-06-09] MEDS: Ferrous Sulfate 300 mg/5 mL Liq UD PO SCH ×3 (09:56→17:06)
[2018-06-09] MEDS: Tmp-Smz 800 mg-160 mg DS Tab PO SCH ×2 (09:56→17:07)
[2018-06-09] MEDS: levETIRAcetam 500 mg/5ml UD cups PO SCH ×2 (09:56→17:16)
--- NOTE | 2018-06-09 11:17 | CP.PCM.PN ---
<Netta Garay - Last Filed: 06/09/18 11:14> Subjective - Date & Time of Evaluation Date of Evaluation: 06/09/18 Time of Evaluation: 11:14 - Subjective Subjective: Netta Garay PGY1 Progress Note for Dr. Ball Pt was examined at bedside this morning. He reports some b/l knee pain that he claims is chronic due to his arthritis for which he usually takes tylenol. He reports the pain worse in the L knee than R. Pt has no other complaints. He denies any dizziness, shortness of breath, chest pain, headache, abdominal pain, nausea, vomiting, diarrhea. Objective - Vital Signs/Intake and Output Vital Signs (last 24 hours): Temp Pulse Resp BP Pulse Ox 99.7 F H 86 20 118/67 97 06/08/18 16:00 06/08/18 16:00 06/08/18 16:00 06/08/18 16:00 06/08/18 16:00 - Medications Medications: Current Medications Acetaminophen (Tylenol 325mg Tab) 650 mg PO Q6H PRN PRN Reason: Pain, moderate (4-7) Last Admin: 06/09/18 10:36 Dose: 650 mg Enoxaparin Sodium (Lovenox) 40 mg SC 0600 NAVEEN; Protocol Last Admin: 06/09/18 05:24 Dose: 40 mg Ferrous Sulfate (Feosol Liq) 300 mg PO TID NAVEEN Last Admin: 06/09/18 09:56 Dose: 300 mg Levetiracetam (Keppra) 500 mg PO BID NAVEEN Last Admin: 06/09/18 09:56 Dose: 500 mg Metoclopramide HCl (Reglan) 5 mg GT ACHS NAVEEN; Protocol Last Admin: 06/09/18 07:41 Dose: 5 mg Pantoprazole Sodium (Protonix Susp) 40 mg GT 0600 NAVEEN; Protocol Last Admin: 06/09/18 05:24 Dose: 40 mg Phenytoin (Dilantin) 100 mg GT Q8 NAVEEN; Protocol Last Admin: 06/09/18 05:24 Dose: 100 mg Trimethoprim/Sulfamethoxazole (Bactrim Ds Tab) 1 tab PO BID NAVEEN; Protocol Last Admin: 06/09/18 09:56 Dose: 1 tab - Labs Labs: 06/09/18 04:00 06/09/18 04:00 - Constitutional Appears: Well, No Acute Distress - Head Exam Head Exam: ATRAUMATIC, NORMOCEPHALIC - Eye Exam Eye Exam: EOMI Pupil Exam: NORMAL ACCOMODATION - ENT Exam ENT Exam: Mucous Membranes Moist Additional comments: trache site clean dry intact - Neck Exam Additional comments: trache site clean, dry, intact - Respiratory Exam Respiratory Exam: Clear to Ausculation Bilateral, NORMAL BREATHING PATTERN. absent: Rales, Rhonchi, Wheezes - Cardiovascular Exam Cardiovascular Exam: REGULAR RHYTHM, +S1, +S2. absent: Gallop, Rubs, Murmur - GI/Abdominal Exam GI & Abdominal Exam: Distended, Firm, Soft, Normal Bowel Sounds. absent: Tenderness - Extremities Exam Extremities Exam: Normal Inspection. absent: Pedal Edema - Neurological Exam Neurological Exam: Alert, Awake, Oriented x3 - Psychiatric Exam Psychiatric exam: Normal Affect, Normal Mood Assessment and Plan - Assessment and Plan (Free Text) Assessment: Pt is a 73 yo male with a PMH of seizure and throat cancer s/p tracheostomy who presented with complaints of dysphagia, was transferred to the TCU for radiation treatment. Plan: Dysphagia - Reglan 5mg GT ACHS - Aspiration precautions - Keep HOB elevated - MRI Orbit, Face and Neck: mass at site of laryngectomy above tracheostomy. Well-circumscribed borders, no obvious invasion of adjacent fat planes. - G tube feeds: Vital bolus feeds, 3 per day. Pt educated on how to self administer feeds upon d/c - Heme/Onc, Dr. Johnson: f/u outpt upon discharge with Dr. Ede Cleveland or Dr. Alexandra. Recommend outpt PET/CT. Anemia, Normocytic - H&H 8.7/26.7 - pt asymptomatic and hemodynamically stable - continue Fe - continue to monitor - Heme/Onc, Dr. Alexandra consulted, f/u recs UTI - WBC 12.3 - UA 06/04: small leukocyte esterase - UCx: E.coli, >100,000 sensitive to bactrim, ertapenem, cipro, cefepime, nitro, gentamicin, meropenem - pt asymptomatic - continue bactrim BID, day 3 History of Seizures - continue Phenytoin 100mg GT q8 - start Levitiracetam 500mg PO daily - Seizure precautions History of COPD - Duonebs TID Ppx - Protonix - SCDs - lovenox 40 Dispo: - PT/OT: home w/ services - pt educated on self administering feeds upon d/c - SW extended TCU stay: tentative d/c date 06/12 Pt seen, examined, assessment, and plan discussed with Dr Ball. <Ashley Ball - Last Filed: 06/09/18 12:18> Objective - Vital Signs/Intake and Output Vital Signs (last 24 hours): Temp Pulse Resp BP Pulse Ox 99.7 F H 86 20 118/67 97 06/08/18 16:00 06/08/18 16:00 06/08/18 16:00 06/08/18 16:00 06/08/18 16:00 - Medications Medications: Current Medications Acetaminophen (Tylenol 325mg Tab) 650 mg PO Q6H PRN PRN Reason: Pain, moderate (4-7) Last Admin: 06/09/18 10:36 Dose: 650 mg Enoxaparin Sodium (Lovenox) 40 mg SC 0600 NAVEEN; Protocol Last Admin: 06/09/18 05:24 Dose: 40 mg Ferrous Sulfate (Feosol Liq) 300 mg PO TID NAVEEN Last Admin: 06/09/18 09:56 Dose: 300 mg Levetiracetam (Keppra) 500 mg PO BID NAVEEN Last Admin: 06/09/18 09:56 Dose: 500 mg Metoclopramide HCl (Reglan) 5 mg GT ACHS NAVEEN; Protocol Last Admin: 06/09/18 12:08 Dose: Not Given Pantoprazole Sodium (Protonix Susp) 40 mg GT 0600 NAVEEN; Protocol Last Admin: 06/09/18 05:24 Dose: 40 mg Phenytoin (Dilantin) 100 mg GT Q8 NAVEEN; Protocol Last Admin: 06/09/18 05:24 Dose: 100 mg Trimethoprim/Sulfamethoxazole (Bactrim Ds Tab) 1 tab PO BID NAVEEN; Protocol Last Admin: 06/09/18 09:56 Dose: 1 tab - Labs Labs: 06/09/18 04:00 06/09/18 04:00 Attending/Attestation - Attestation I have personally seen and examined this patient.: Yes I have fully participated in the care of the patient.: Yes I have reviewed all pertinent clinical information, including history, physical exam and plan: Yes Notes (Text): 06/09/18 12:18 73 year old male with past medical history of seizure and throat cancer s/p tracheostomy who presented with dysphagia. He is s/p G-tube and trach. He is s/p antibiotics treatment for pneumonia. He was transferred to TCU for rehab therapy. Hematology / oncology is following as well as radiation oncology. He is on iron supplements for anemia. He is on keppra and phenytoin for seizure history. Patient is tolerating feeds. He is on bactrim for E Coli UTI. Tentative d/c planning 06/12. Ashely Ball MD Hospitalist.
--- NOTE | 2018-06-10 04:15 | PN ---
DATE: 06/08/2018 ONCOLOGY FOLLOWUP PROGRESS NOTE LOCATION: Patient is in [facility] at 320, bed 1. SUBJECTIVE: This is a 73-year-old male who is in TRCU for deconditioning with a background history of having had locally recurrent supraglottic laryngeal carcinoma after having had initial treatment about 2 years ago with combined chemo radiation, had recurrence 6 months later, went on to have laryngectomy and now currently in the hospital with failure to thrive, left upper lobe pneumonia, COPD, which have gradually improved. Patient's most recent MRI showed recurrent disease, appears to be localized only to the laryngeal area. Patient is not a surgical candidate and is being assessed for PET/CT scan as an outpatient and then plans for targeted additional radiation and may be targeted therapy either with Erbitux or with immunotherapy if feasible. Patient has significantly improved during his hospital stay, is able to ambulate and plans are being made to help him go home to his own environment rather than going to a correction so that we can proceed with his plans for treatment. Patient does want us to be aggressive with his treatment and that is the plan right now after discussing in detail with the patient, Dr. Goldberg and the family. I left my number with the patient for me to speak and communicate with his son Mr. Morgan as well. Subjectively, patient is examined at the bedside, he does not have any significant complaints. Denies any history of headache, abdominal pain, chest pain, nausea or vomiting. Patient has been taking his feedings as prescribed. PHYSICAL EXAMINATION VITAL SIGNS: Stable as stated in the chart. GENERAL: Patient is in no acute distress. HEENT: Head is normocephalic, atraumatic. Temporal muscle wasting is noted. Patient has a permanent tracheostomy. Trach site is clean and dry. NECK: Supple. There is no adenopathy. No jugular venous distention noted. Prior radiation changes are noted. LUNGS: Relatively clear to percussion and auscultation without rhonchi, wheezes or stridor. CARDIOVASCULAR SYSTEM: Reveals PMI to be in the fifth intercostal space inside the midclavicular line. S1, S2 normal. No gallop or murmurs noted. EXTREMITIES: Reveals no cyanosis, clubbing or edema. NEUROLOGIC: Higher functions are normal. No focal deficits are noted. LABORATORY DATA: Labs reviewed. White count is 12.7, hemoglobin 8.7, hematocrit 26, platelet count of 655,000. Sodium is 133, K is 2.1, chloride 100, CO2 23, BUN 11, creatinine 0.5 and blood sugar is 137. ASSESSMENT AND PLAN: Patient is a 73-year-old male with a prior history of seizure disorder, recurrent supraglottic carcinoma with a permanent tracheostomy who is currently in [facility]. Patient is on aspiration precautions. He is on G-tube feedings with bolus feedings 3 times a day. Patient is being educated as how to self administer himself. Patient will follow up with us as an outpatient and will be seen by Dr. Goldberg as well. Hemoglobin and hematocrit is stable at this time. If the hemoglobin goes less than 8.1, patient may need transfusion, would avoid growth factors because they can be stimulant specifically in head and neck carcinoma. Patient has urinary traction infection for which he is on Bactrim at this point in time. Patient is on antiseizure medicines for his seizures. We will follow the patient as an outpatient and make appropriate recommendations after speaking with the family. We will speak with the family care team as well. Time spent with the patient greater than 45 minutes which more than 50% of the time was spent in face to face contact with the patient. Chiquis Alexandra MD
[2018-06-10] MEDS: Pantoprazole 40 mg Susp UD GT SCH (05:52)
[2018-06-10] MEDS: Phenytoin 100 mg/4 ml Oral Susp UD GT SCH ×3 (05:53→21:04)
[2018-06-10] MEDS: Enoxaparin 40 mg Syringe SC SCH (05:53)
[2018-06-10] MEDS: Metoclopramide 5 mg/5 ml Oral Sol GT SCH ×4 (07:35→21:05)
[2018-06-10] MEDS: Ferrous Sulfate 300 mg/5 mL Liq UD PO SCH ×3 (09:33→17:18)
[2018-06-10] MEDS: levETIRAcetam 500 mg/5ml UD cups PO SCH ×2 (09:33→17:18)
[2018-06-10] MEDS: Tmp-Smz 800 mg-160 mg DS Tab PO SCH ×2 (09:33→17:18)
[2018-06-10 16:27] VITALS: RESP 18
[2018-06-11] MEDS: Pantoprazole 40 mg Susp UD GT SCH (05:17)
[2018-06-11] MEDS: Phenytoin 100 mg/4 ml Oral Susp UD GT SCH ×3 (05:17→21:34)
[2018-06-11] MEDS: Enoxaparin 40 mg Syringe SC SCH (05:17)
[2018-06-11 07:13] LABS: BASO # 0.03 K/mm3 (0.0-2.0); BASO % 0.2 % (0.0-3.0); EOS # 0.1 (0.0-0.7); EOS % 0.7 % (1.5-5.0); GRAN # 9.79 (1.4-6.5); GRAN % 78.6 % (50.0-68.0); HEMOGLOBIN 9.3 g/dL (14.0-18.0); LYMPH # 1.6 (1.2-3.4); LYMPH % 12.6 % (22.0-35.0); MEAN CELL VOLUME 89.2 fl (80.0-105.0); MEAN CORPUSCULAR HEMOGLOBIN 29.6 pg (25.0-35.0); MEAN CORPUSCULAR HGB CONC 33.2 g/dl (31.0-37.0); MEAN PLATELET VOLUME 9.3 fl (7.0-11.0); MONO % 7.9 % (1.0-6.0); RBC 3.14 10^6/uL (3.5-6.1); RED CELL DISTRIBUTION WIDTH 14.8 % (11.5-14.5); WHITE BLOOD COUNT 12.5 10^3/ul (4.5-11.0)
[2018-06-11 07:27] LABS: ALB/GLOB RATIO 0.8 (1.1-1.8); ALBUMIN 3.5 g/dL (3.0-4.8); ALT/SGPT 40 U/L (7-56); AST/SGOT 47 U/L (17-59); BLOOD UREA NITROGEN 14 mg/dL (7-21); CALCIUM 10.2 mg/dL (8.4-10.5); GFR NON-AFRICAN AMERICAN > 60
[2018-06-11] MEDS: Metoclopramide 5 mg/5 ml Oral Sol GT SCH ×4 (08:15→21:35)
[2018-06-11] MEDS: levETIRAcetam 500 mg/5ml UD cups PO SCH ×2 (10:14→17:24)
[2018-06-11] MEDS: Tmp-Smz 800 mg-160 mg DS Tab PO SCH (10:14)
[2018-06-11] MEDS: Ferrous Sulfate 300 mg/5 mL Liq UD PO SCH ×3 (10:15→17:24)
[2018-06-11] MEDS ORDERED: Tmp-Smz 200-40mg/5 ml Oral Sus(120 ml) PO SCH (10:24)
--- NOTE | 2018-06-11 15:27 | CP.PCM.PN ---
<Netta Garay - Last Filed: 06/11/18 15:23> Subjective - Date & Time of Evaluation Date of Evaluation: 06/11/18 Time of Evaluation: 09:00 - Subjective Subjective: Netta Garay PGY1 Progress Note for Dr. Lnag Pt was examined at bedside this morning. He had no complaints. He reported improvement of his b/l knee pain. He denied any shortness of breath, chest pain, abdominal pain, nausea, vomiting, diarrhea, dysuria. Objective - Vital Signs/Intake and Output Vital Signs (last 24 hours): Temp Pulse Resp BP Pulse Ox 98.5 F 104 H 18 122/65 97 06/10/18 16:13 06/11/18 11:59 06/10/18 16:13 06/10/18 16:13 06/11/18 11:59 Intake and Output: 06/11/18 06/11/18 06:59 18:59 Intake Total 420 Balance 420 - Medications Medications: Current Medications Acetaminophen (Tylenol 325mg Tab) 650 mg PO Q6H PRN PRN Reason: Pain, moderate (4-7) Last Admin: 06/09/18 10:36 Dose: 650 mg Enoxaparin Sodium (Lovenox) 40 mg SC 0600 NAVEEN; Protocol Last Admin: 06/11/18 05:17 Dose: 40 mg Ferrous Sulfate (Feosol Liq) 300 mg PO TID NAVEEN Last Admin: 06/11/18 13:59 Dose: 300 mg Levetiracetam (Keppra) 500 mg PO BID NAVEEN Last Admin: 06/11/18 10:14 Dose: 500 mg Metoclopramide HCl (Reglan) 5 mg GT ACHS NAVEEN; Protocol Last Admin: 06/11/18 11:50 Dose: 5 mg Pantoprazole Sodium (Protonix Susp) 40 mg GT 0600 NAVEEN; Protocol Last Admin: 06/11/18 05:17 Dose: 40 mg Phenytoin (Dilantin) 100 mg GT Q8 NAVEEN; Protocol Last Admin: 06/11/18 13:58 Dose: 100 mg Trimethoprim/Sulfamethoxazole (Sulfatrim Pediatric Susp) 20 ml PO BID NAVEEN; Protocol - Labs Labs: 06/11/18 07:00 06/11/18 07:00 - Constitutional Appears: Well, No Acute Distress - Head Exam Head Exam: ATRAUMATIC, NORMOCEPHALIC - Eye Exam Eye Exam: EOMI, Normal appearance, PERRL Pupil Exam: NORMAL ACCOMODATION - ENT Exam ENT Exam: Mucous Membranes Moist - Neck Exam Additional comments: trache site clean, dry - Respiratory Exam Respiratory Exam: Clear to Ausculation Bilateral, NORMAL BREATHING PATTERN. absent: Rales, Rhonchi, Wheezes - Cardiovascular Exam Cardiovascular Exam: REGULAR RHYTHM, +S1, +S2. absent: Gallop, Rubs, Murmur - GI/Abdominal Exam GI & Abdominal Exam: Soft, Normal Bowel Sounds. absent: Distended, Firm, Tenderness - Extremities Exam Extremities Exam: Normal Inspection. absent: Pedal Edema, Tenderness - Neurological Exam Neurological Exam: Alert, Awake, Oriented x3 - Psychiatric Exam Psychiatric exam: Normal Affect, Normal Mood Assessment and Plan - Assessment and Plan (Free Text) Assessment: Pt is a 73 yo male with a PMH of seizure and throat cancer s/p tracheostomy who presented with complaints of dysphagia, was transferred to the TCU for radiation treatment. Plan: Dysphagia - Reglan 5mg GT ACHS - Aspiration precautions - Keep HOB elevated - MRI Orbit, Face and Neck: mass at site of laryngectomy above tracheostomy. Well-circumscribed borders, no obvious invasion of adjacent fat planes. - G tube feeds: Vital bolus feeds, 3 per day. Pt educated on how to self administer feeds upon d/c - Heme/Onc, Dr. Johnson: f/u outpt upon discharge with Dr. Ede Cleveland or Dr. Alexandra. Recommend outpt PET/CT. Anemia, Normocytic - H&H 9.3/28.0 - pt asymptomatic and hemodynamically stable - continue Fe - continue to monitor - Heme/Onc, Dr. Alexandra consulted, f/u recs UTI - WBC 12.5 - UA 06/04: small leukocyte esterase - UCx: E.coli, >100,000 sensitive to bactrim, ertapenem, cipro, cefepime, nitro, gentamicin, meropenem - pt asymptomatic - d/c bactrim History of Seizures - continue Phenytoin 100mg GT q8 - start Levitiracetam 500mg PO daily - Seizure precautions History of COPD - Duonebs TID Ppx - Protonix - SCDs - lovenox 40 Dispo: - PT/OT: home w/ services - pt educated on self administering feeds upon d/c - SW extended TCU stay: d/c date 06/12 Pt seen, examined, assessment, and plan discussed with Dr Lang. <Dejah Lang - Last Filed: 06/12/18 17:15> Objective - Vital Signs/Intake and Output Vital Signs (last 24 hours): Temp Pulse Resp BP Pulse Ox 97.6 F 90 18 105/66 98 06/11/18 16:00 06/11/18 16:00 06/11/18 16:00 06/11/18 16:00 06/11/18 16:00 Intake and Output: 06/12/18 06/12/18 06:59 18:59 Intake Total 420 Balance 420 - Labs Labs: 06/11/18 07:00 06/11/18 07:00 Attending/Attestation - Attestation I have personally seen and examined this patient.: Yes I have fully participated in the care of the patient.: Yes I have reviewed all pertinent clinical information, including history, physical exam and plan: Yes Notes (Text): 06/12/18 17:15 Medical record note made by the resident after discussion with my direction and input after the patient was personally seen and examined by me. I have reviewed the chart and agree that the record accurately reflects by personal performance of the history, physical exam, data review, and medical decision-making, in the course for the patient. I have also personally directed the plan of care.
[2018-06-11 16:26] VITALS: BP 105/66; PULSE 90; TEMP 97.6; O2SAT 98
[2018-06-12] MEDS: Pantoprazole 40 mg Susp UD GT SCH (05:23)
[2018-06-12] MEDS: Phenytoin 100 mg/4 ml Oral Susp UD GT SCH ×2 (05:23→13:50)
[2018-06-12] MEDS: Enoxaparin 40 mg Syringe SC SCH (05:23)
[2018-06-12] MEDS: Metoclopramide 5 mg/5 ml Oral Sol GT SCH ×2 (07:51→12:17)
[2018-06-12] MEDS: Ferrous Sulfate 300 mg/5 mL Liq UD PO SCH ×2 (10:07→13:50)
[2018-06-12] MEDS: levETIRAcetam 500 mg/5ml UD cups PO SCH (10:07)
--- NOTE | 2018-06-12 14:58 | CP.PCM.DIS ---
<Netta Garay - Last Filed: 06/12/18 14:53> Provider - Provider Date of Admission: 06/02/18 20:56 Attending physician: Dejah Lang MD Primary care physician: Sue Alvarado MD Consults: Heme/Onc: Ibrahima Time Spent in preparation of Discharge (in minutes): 70 Hospital Course - Lab Results Lab Results: Micro Results 06/04/18 12:30 Urine Urine Culture - Final Escherichia Coli Most Recent Lab Values WBC 12.5 10^3/ul (4.5-11.0) H 06/11/18 07:00 RBC 3.14 10^6/uL (3.5-6.1) L 06/11/18 07:00 Hgb 9.3 g/dL (14.0-18.0) L 06/11/18 07:00 Hct 28.0 % (42.0-52.0) L 06/11/18 07:00 MCV 89.2 fl (80.0-105.0) 06/11/18 07:00 MCH 29.6 pg (25.0-35.0) 06/11/18 07:00 MCHC 33.2 g/dl (31.0-37.0) 06/11/18 07:00 RDW 14.8 % (11.5-14.5) H 06/11/18 07:00 Plt Count 593 10^3/uL (120.0-450.0) H 06/11/18 07:00 MPV 9.3 fl (7.0-11.0) 06/11/18 07:00 Gran % 78.6 % (50.0-68.0) H 06/11/18 07:00 Lymph % (Auto) 12.6 % (22.0-35.0) L 06/11/18 07:00 Lassen % (Auto) 7.9 % (1.0-6.0) H 06/11/18 07:00 Eos % (Auto) 0.7 % (1.5-5.0) L 06/11/18 07:00 Baso % (Auto) 0.2 % (0.0-3.0) 06/11/18 07:00 Gran # 9.79 (1.4-6.5) H 06/11/18 07:00 Lymph # (Auto) 1.6 (1.2-3.4) 06/11/18 07:00 Lassen # (Auto) 1.0 (0.1-0.6) H 06/11/18 07:00 Eos # (Auto) 0.1 (0.0-0.7) 06/11/18 07:00 Baso # (Auto) 0.03 K/mm3 (0.0-2.0) 06/11/18 07:00 Sodium 134 mmol/L (132-148) 06/11/18 07:00 Potassium 4.2 mmol/L (3.6-5.0) 06/11/18 07:00 Chloride 99 mmol/L (98-107) 06/11/18 07:00 Carbon Dioxide 25 mmol/L (21-33) 06/11/18 07:00 Anion Gap 13 (10-20) 06/11/18 07:00 BUN 14 mg/dL (7-21) 06/11/18 07:00 Creatinine 0.8 mg/dl (0.8-1.5) 06/11/18 07:00 Est GFR ( Amer) > 60 06/11/18 07:00 Est GFR (Non-Af Amer) > 60 06/11/18 07:00 POC Glucose (mg/dL) 191 mg/dL (65-110) H 06/12/18 11:02 Random Glucose 120 mg/dL (70-110) H 06/11/18 07:00 Calcium 10.2 mg/dL (8.4-10.5) 06/11/18 07:00 Iron 37 ug/dL (45-180) L 06/04/18 08:20 TIBC 208 ug/dL (261-462) L 06/04/18 08:20 % Saturation 18 % (20-55) L 06/04/18 08:20 Ferritin 263.0 ng/mL 06/04/18 08:20 Total Bilirubin 1.1 mg/dL (0.2-1.3) 06/11/18 07:00 AST 47 U/L (17-59) 06/11/18 07:00 ALT 40 U/L (7-56) 06/11/18 07:00 Alkaline Phosphatase 109 U/L (38-126) 06/11/18 07:00 Total Protein 7.7 g/dL (5.8-8.3) 06/11/18 07:00 Albumin 3.5 g/dL (3.0-4.8) 06/11/18 07:00 Globulin 4.2 gm/dL 06/11/18 07:00 Albumin/Globulin Ratio 0.8 (1.1-1.8) L 06/11/18 07:00 Urine Color Yellow (YELLOW) 06/04/18 12:30 Urine Appearance Clear (CLEAR) 06/04/18 12:30 Urine pH 6.0 (4.7-8.0) 06/04/18 12:30 Ur Specific Medora 1.025 (1.005-1.035) 06/04/18 12:30 Urine Protein 30 mg/dL (<30 mg/dL) H 06/04/18 12:30 Urine Glucose (UA) Negative mg/dL (NEGATIVE) 06/04/18 12:30 Urine Ketones Negative mg/dL (NEGATIVE) 06/04/18 12:30 Urine Blood Negative (NEGATIVE) 06/04/18 12:30 Urine Nitrate Negative (NEGATIVE) 06/04/18 12:30 Urine Bilirubin Negative (NEGATIVE) 06/04/18 12:30 Urine Urobilinogen 4.0 E.U./dL (<1 E.U./dL) H 06/04/18 12:30 Ur Leukocyte Esterase Small Teja/uL (NEGATIVE) H 06/04/18 12:30 Urine RBC Negative /hpf (0-2) 06/04/18 12:30 Urine WBC 10 - 15 /hpf (0-6) 06/04/18 12:30 Ur Epithelial Cells 4 - 5 /hpf (0-5) 06/04/18 12:30 Urine Bacteria Few (NEG) 06/04/18 12:30 Stool Occult Blood Negative (NEGATIVE) 06/04/18 06:00 - Hospital Course Hospital Course: Pt is a 73 yo male with PMH throat cancer s/p trach who presented to ED with a 3 day history of difficulty swallowing which he stated was sudden in onset. Pt was also having difficulty with his external voice box. Pt has had MRI of the face and neck which showed a mass in the oropharynx. Pt was evaluated by GI and surgery for evaluation of g tube placement. GI's assessment was that it would be to risky to place to g tube endoscopically. G tube was placed by surgery after a CT of the abdomen and pelvis was performed to r/o any possible masses in the surrounding area. Pt was transferred to TCU, where he was being evaluated for radiation therapy. Throughout his stay, he had no complaints. Heme/onc was consulted and recommended outpatient PET scan and follow up with Dr. Cleveland or Dr. Alexandra for radiation. Urine Culture was positive for E. coli, so patient was given 5 day course of bactrim. Pt was taught how to feed himself through his G tube. Upon discharge, pt had no further complaints. He was deemed stable for discharge. Pt was given instructions of how to take his medications and how to feed himself. Aspiration precautions were given. Pt was also instructed to follow up with heme/onc for out patient PET scan and radiation. Pt understood instructions, and agreed. Discharge Exam - Head Exam Head Exam: ATRAUMATIC, NORMOCEPHALIC - Eye Exam Eye Exam: EOMI, Normal appearance Pupil Exam: NORMAL ACCOMODATION, PERRL - Neck Exam Additional comments: trache site clean, dry, intact - Respiratory Exam Respiratory Exam: Clear to PA & Lateral, NORMAL BREATHING PATTERN. absent: Rales, Rhonchi, Wheezes - Cardiovascular Exam Cardiovascular Exam: REGULAR RHYTHM, +S1, +S2. absent: Gallop, Rubs, Systolic Murmur - GI/Abdominal Exam GI & Abdominal Exam: Normal Bowel Sounds, Soft. absent: Distended, Firm, Tenderness - Extremities Exam Extremities exam: normal inspection - Neurological Exam Neurological exam: Alert, Oriented x3 - Psychiatric Exam Psychiatric exam: Normal Affect, Normal Mood Discharge Plan - Discharge Medications Prescriptions: RX: Albuterol/Ipratropium [Duoneb 3 mg/0.5 mg (3 ml) UD] 3 ml IH TIDRESP #1 neb Aspirin [Aspirin Chewable] 81 mg PO DAILY #14 ctb RX: Ferrous Sulfate [Feosol Liq] 300 mg PO DAILY #21 udc RX: Ipratropium 0.02% [Atrovent] 2 sprays INH QID #14 neb RX: levETIRAcetam Solution [Keppra] 500 mg PO BID #2 bottle Metoclopramide [Reglan] 5 mg PO ACHS #14 dose RX: Phenytoin [Dilantin] 100 mg PO TID #250 ml RX: Salmeterol Xinafoate/Fluticaso [Advair Hfa 115/21] 2 puff IH DAILY #14 inhaler - Follow Up Plan Condition: GOOD Disposition: HOME/ ROUTINE Instructions: Dysphagia, Gastrostomy, Permanent and Temporary, Tracheotomy, Seizures, Adult (DC), Gastrostomy, Permanent and Temporary (DC), How to Give a Tube Feeding Additional Instructions: Please follow up with your Primary care physician, Dr. Alvarado within one week of discharge. Please follow up with hematology/oncology Dr. Ede Cleveland or Dr. Alexandra within one week of discharge to get a PET Scan. Please take your prescribed medications as instructed. Please take precautions with aspirating saliva. Please return to the ED if symptoms return. Referrals: Sue Alvarado MD [Primary Care Provider] - <Dejah Lang - Last Filed: 06/12/18 17:14> Provider - Provider Date of Admission: 06/02/18 20:56 Attending physician: Dejah Lang MD Primary care physician: Sue Alvarado MD Hospital Course - Lab Results Lab Results: Micro Results 06/04/18 12:30 Urine Urine Culture - Final Escherichia Coli Most Recent Lab Values WBC 12.5 10^3/ul (4.5-11.0) H 06/11/18 07:00 RBC 3.14 10^6/uL (3.5-6.1) L 06/11/18 07:00 Hgb 9.3 g/dL (14.0-18.0) L 06/11/18 07:00 Hct 28.0 % (42.0-52.0) L 06/11/18 07:00 MCV 89.2 fl (80.0-105.0) 06/11/18 07:00 MCH 29.6 pg (25.0-35.0) 06/11/18 07:00 MCHC 33.2 g/dl (31.0-37.0) 06/11/18 07:00 RDW 14.8 % (11.5-14.5) H 06/11/18 07:00 Plt Count 593 10^3/uL (120.0-450.0) H 06/11/18 07:00 MPV 9.3 fl (7.0-11.0) 06/11/18 07:00 Gran % 78.6 % (50.0-68.0) H 06/11/18 07:00 Lymph % (Auto) 12.6 % (22.0-35.0) L 06/11/18 07:00 Lassen % (Auto) 7.9 % (1.0-6.0) H 06/11/18 07:00 Eos % (Auto) 0.7 % (1.5-5.0) L 06/11/18 07:00 Baso % (Auto) 0.2 % (0.0-3.0) 06/11/18 07:00 Gran # 9.79 (1.4-6.5) H 06/11/18 07:00 Lymph # (Auto) 1.6 (1.2-3.4) 06/11/18 07:00 Lassen # (Auto) 1.0 (0.1-0.6) H 06/11/18 07:00 Eos # (Auto) 0.1 (0.0-0.7) 06/11/18 07:00 Baso # (Auto) 0.03 K/mm3 (0.0-2.0) 06/11/18 07:00 Sodium 134 mmol/L (132-148) 06/11/18 07:00 Potassium 4.2 mmol/L (3.6-5.0) 06/11/18 07:00 Chloride 99 mmol/L (98-107) 06/11/18 07:00 Carbon Dioxide 25 mmol/L (21-33) 06/11/18 07:00 Anion Gap 13 (10-20) 06/11/18 07:00 BUN 14 mg/dL (7-21) 06/11/18 07:00 Creatinine 0.8 mg/dl (0.8-1.5) 06/11/18 07:00 Est GFR ( Amer) > 60 06/11/18 07:00 Est GFR (Non-Af Amer) > 60 06/11/18 07:00 POC Glucose (mg/dL) 191 mg/dL (65-110) H 06/12/18 11:02 Random Glucose 120 mg/dL (70-110) H 06/11/18 07:00 Calcium 10.2 mg/dL (8.4-10.5) 06/11/18 07:00 Iron 37 ug/dL (45-180) L 06/04/18 08:20 TIBC 208 ug/dL (261-462) L 06/04/18 08:20 % Saturation 18 % (20-55) L 06/04/18 08:20 Ferritin 263.0 ng/mL 06/04/18 08:20 Total Bilirubin 1.1 mg/dL (0.2-1.3) 06/11/18 07:00 AST 47 U/L (17-59) 06/11/18 07:00 ALT 40 U/L (7-56) 06/11/18 07:00 Alkaline Phosphatase 109 U/L (38-126) 06/11/18 07:00 Total Protein 7.7 g/dL (5.8-8.3) 06/11/18 07:00 Albumin 3.5 g/dL (3.0-4.8) 06/11/18 07:00 Globulin 4.2 gm/dL 06/11/18 07:00 Albumin/Globulin Ratio 0.8 (1.1-1.8) L 06/11/18 07:00 Urine Color Yellow (YELLOW) 06/04/18 12:30 Urine Appearance Clear (CLEAR) 06/04/18 12:30 Urine pH 6.0 (4.7-8.0) 06/04/18 12:30 Ur Specific Medora 1.025 (1.005-1.035) 06/04/18 12:30 Urine Protein 30 mg/dL (<30 mg/dL) H 06/04/18 12:30 Urine Glucose (UA) Negative mg/dL (NEGATIVE) 06/04/18 12:30 Urine Ketones Negative mg/dL (NEGATIVE) 06/04/18 12:30 Urine Blood Negative (NEGATIVE) 06/04/18 12:30 Urine Nitrate Negative (NEGATIVE) 06/04/18 12:30 Urine Bilirubin Negative (NEGATIVE) 06/04/18 12:30 Urine Urobilinogen 4.0 E.U./dL (<1 E.U./dL) H 06/04/18 12:30 Ur Leukocyte Esterase Small Teja/uL (NEGATIVE) H 06/04/18 12:30 Urine RBC Negative /hpf (0-2) 06/04/18 12:30 Urine WBC 10 - 15 /hpf (0-6) 06/04/18 12:30 Ur Epithelial Cells 4 - 5 /hpf (0-5) 06/04/18 12:30 Urine Bacteria Few (NEG) 06/04/18 12:30 Stool Occult Blood Negative (NEGATIVE) 06/04/18 06:00 Attending/Attestation - Attestation I have personally seen and examined this patient.: Yes I have fully participated in the care of the patient.: Yes I have reviewed all pertinent clinical information, including history, physical exam and plan: Yes Notes (Text): 06/12/18 17:11 Medical record note made by the resident after discussion with my direction and input after the patient was personally seen and examined by me. I have reviewed the chart and agree that the record accurately reflects by personal performance of the history, physical exam, data review, and medical decision-making, in the course for the patient. I have also personally directed the plan of care. 73 year old male with PMH of seizure and throat cancer s/p tracheostomy who was initially admitted initially to [facility] inpatient with complaint of dysphagia. CT neck showed oropharyngeal mass concerning for malignancy. Patient was seen by ENT, GI, surgery and hematology / oncology. 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 Patient had SP G-tube ,and was also treated for Aspiration Pneumonia. MRI or orbit, face, and neck showed large mass at laryngectomy site. 3.3 x 4.9 x 5.7cm. Well circumscribed borders with no invasion. Plan for outpatient PET scan and radiation therapy.Patient was later admitted to TCU for rehabilitation.He was also treated for UTI in TCU. Patient is at his base line. Anemia is stable . Prognosis is guarded. Management plan was discussed in detail with patient. Education was provided.
== END 2018-06-12 15:06 | disposition home or self-care (01) | DRG 146 ==
LOC: TRCU 20:56
PROVIDERS: ADMIT Internal Medicine; ATTEND Internal Medicine
PROC: F07Z9ZZ Gait Training/Functional Ambulation Treatment (ICD-10-PCS; principal; 2018-06-03)
PROC: F07M6ZZ Therapeutic Exercise Treatment of Musculoskeletal System - Whole Body (ICD-10-PCS; 2018-06-03)
PROC: F08Z1ZZ Dressing Techniques Treatment (ICD-10-PCS; 2018-06-03)
PROC: F08Z0ZZ Bathing/Showering Techniques Treatment (ICD-10-PCS; 2018-06-03)
PROC: F08Z2ZZ Grooming/Personal Hygiene Treatment (ICD-10-PCS; 2018-06-03)
PROC: F08Z4ZZ Home Management Treatment (ICD-10-PCS; 2018-06-03)
DX: C10.9 Malignant neoplasm of oropharynx, unspecified (principal); J69.0 Pneumonitis due to inhalation of food and vomit; N39.0 Urinary tract infection, site not specified; D64.9 Anemia, unspecified; E11.9 Type 2 diabetes mellitus without complications; G40.909 Epilepsy, unspecified, not intractable, without status epilepticus; I10 Essential (primary) hypertension; J44.9 Chronic obstructive pulmonary disease, unspecified; M17.0 Bilateral primary osteoarthritis of knee; B96.20 Unspecified Escherichia coli [E. coli] as the cause of diseases classified elsewhere; R13.10 Dysphagia, unspecified; R62.7 Adult failure to thrive; Z80.0 Family history of malignant neoplasm of digestive organs; Z85.21 Personal history of malignant neoplasm of larynx; Z87.891 Personal history of nicotine dependence; Z90.02 Acquired absence of larynx; Z93.0 Tracheostomy status; Z93.1 Gastrostomy status

== ENCOUNTER 2018-07-01 18:21 | Inpatient (IN) | payer MEDICARE, OTHER ==
[2018-07-01 19:02] VITALS: BMI 24.7
--- NOTE | 2018-07-01 20:16 | ED PDOC ---
Arrival/HPI - General Chief Complaint: Cough, Cold, Congestion Time Seen by Provider: 07/01/18 19:31 - History of Present Illness Narrative History of Present Illness (Text): 73 yr old male w/ hx of Metastatic Head and Neck CA s/p trach presents w/ f or sob, increased respiratory secretion. Pt was sent in by PMD Dr. Alvarado for further evaluation. Per and pt, pt notes that ever since d/c he has been more SOB and has had increased secretions from trach site. He notes only mild bleeding, no heavy bleeding. No chest pain. No abdominal pain. No headache. No history of blood clots. No GI or complaints. No rashes. PMD: Dr. Alvarado Past Medical History - Infectious Disease Hx of Infectious Diseases: None - Cardiac Hx Hypertension: Yes - Pulmonary Hx Chronic Obstructive Pulmonary Disease (COPD): Yes Other/Comment: Laryngeal CA s/p laryngectomy and tracheostomy - Neurological Hx Neurological Disorder: Yes Hx Seizures: Yes (Well controlled with medication) - HEENT Hx HEENT Disorder: Yes Other/Comment: blurry vision mild - Renal Hx Renal Disorder: No - Endocrine/Metabolic Hx Diabetes Mellitus Type 2: Yes (DIET CONTROLLED) - Hematological/Oncological Hx Cancer: Yes (Throat cancer) - Integumentary Hx Dermatological Disorder: No Other/Comment: Dry skin scattered throughout body - Musculoskeletal/Rheumatological Hx Falls: Yes - Gastrointestinal Hx Gastrointestinal Disorders: Yes (G tube) - Genitourinary/Gynecological Hx Genitourinary Disorders: No - Psychiatric Hx Psychophysiologic Disorder: No Hx Substance Use: No - Surgical History Other/Comment: Permanent tracheostomy, Neck surgery to remove Ca - Anesthesia Hx Anesthesia Reactions: No Hx Malignant Hyperthermia: No Family/Social History Family/Social History: Unknown Family HX Smoking Status: Former Smoker Hx Alcohol Use: No Hx Substance Use: No Allergies/Home Meds Allergies/Adverse Reactions: Allergies No Known Allergies Allergy (Verified 07/02/18 12:41) Home Medications: Home Meds Medication Instructions Recorded Confirmed Metoclopramide [Reglan] 5 mg PO DAILY 07/02/18 07/02/18 Review of Systems - Review of Systems Constitutional: absent: Fatigue Eyes: absent: Vision Changes ENT: absent: Hearing Changes Respiratory: SOB, Cough, Sputum Cardiovascular: absent: Chest Pain, Palpitations Gastrointestinal: absent: Abdominal Pain, Stool Changes Genitourinary Male: absent: Dysuria, Frequency Musculoskeletal: absent: Arthralgias, Back Pain Skin: absent: Rash, Pruritis Neurological: absent: Headache, Dizziness Endocrine: absent: Diaphoresis Hemo/Lymphatic: absent: Adenopathy Psychiatric: absent: Anxiety Physical Exam Vital Signs Temp Pulse Resp BP Pulse Ox 07/01/18 18:21 98.2 F 98 H 18 107/62 92 L Temperature: Afebrile Blood Pressure: Normal Pulse: Regular Respiratory Rate: Normal Appearance: Positive for: Well-Appearing Pain Distress: None Mental Status: Positive for: Alert and Oriented X 3 - Systems Exam Head: Present: Atraumatic, Normocephalic Pupils: Present: PERRL Extroacular Muscles: Present: EOMI Conjunctiva: Present: Normal Ears: Present: Normal Mouth: Present: Moist Mucous Membranes Pharnyx: Present: Normal Neck: Present: Other (tracheostomy site c/d/i. No trach tube noted- pt notes this is normal. ) Respiratory/Chest: Present: Clear to Auscultation, Good Air Exchange. No: Respiratory Distress Cardiovascular: Present: Regular Rate and Rhythm Abdomen: No: Tenderness, Distention Upper Extremity: Present: Normal Inspection, Normal ROM. No: Cyanosis, Edema Lower Extremity: Present: Normal Inspection, NORMAL PULSES. No: Edema, CALF TENDERNESS Neurological: Present: GCS=15, Motor Func Grossly Intact, Normal Sensory Function, Normal Cerebellar Funct Skin: Present: Warm, Dry Psychiatric: Present: Alert, Oriented x 3, Normal Insight, Normal Affect Medical Decision Making ED Course and Treatment: 73 yr old male w/ hx of head and neck CA p/w worsening secretions and SOB. PNA vs worsening tumor burden 2100 Appreciate consult w/ Dr. Alvarado: Per pt has had decreased PO intake, and had peg tube placed. To go to hospitalist for admission pending imaging. 07/01/18 21:02 EK NSR, no stemi signed out to Dr. Bright pending CT and dispo. - RAD Interpretation Radiology Orders: 07/01/18 19:45 NECK SOFT TISSUE W/CONTRAST [CT] Stat Disposition/Present on Arrival - Present on Arrival Any Indicators Present on Arrival: No History of DVT/PE: No History of Uncontrolled Diabetes: Yes Urinary Catheter: No History of Decub. Ulcer: No History Surgical Site Infection Following: None - Disposition Have Diagnosis and Disposition been Completed?: Yes Diagnosis: Oropharyngeal mass, Laryngeal cancer, Hemoptysis Disposition: HOSPITALIZED Disposition Time: 21:00 Patient Problems: Current Active Problems Problem Status Onset Hemoptysis Acute Laryngeal cancer Acute Oropharyngeal mass Acute Condition: STABLE
[2018-07-01 21:08] LABS: BASO # 0.01 K/mm3 (0.0-2.0); BASO % 0.1 % (0.0-3.0); EOS # 0.1 (0.0-0.7); EOS % 0.4 % (1.5-5.0); GRAN # 15.45 (1.4-6.5); GRAN % 83.3 % (50.0-68.0); HEMOGLOBIN 11.2 g/dL (14.0-18.0); LYMPH # 2.1 (1.2-3.4); LYMPH % 11.4 % (22.0-35.0); MEAN CORPUSCULAR HEMOGLOBIN 30.4 pg (25.0-35.0); MEAN CORPUSCULAR HGB CONC 33.7 g/dl (31.0-37.0); MEAN PLATELET VOLUME 11.6 fl (7.0-11.0); MONO # 0.9 (0.1-0.6); MONO % 4.8 % (1.0-6.0); RBC 3.69 10^6/uL (3.5-6.1); WHITE BLOOD COUNT 18.5 10^3/ul (4.5-11.0)
--- NOTE | 2018-07-01 21:48 | ED PDOC ---
Physical Exam Vital Signs Temp Pulse Resp BP Pulse Ox 07/01/18 18:21 98.2 F 98 H 18 107/62 92 L Medical Decision Making ED Course and Treatment: 07/01/18 21:00 Case endorsed to me by Dr. Magali Hoffman, pending CT Abdomen and Pelvis, reassessment, and disposition. Pt, whose past medical history includes metastatic throat cancer s/p tracheostomy, COPD, seizures, and arthritis, brought in for shortness of breath and increased secretions. 07/02/18 01:02 Case discussed with medical technologist care coordination manager, who is aware and agrees with plan. 07/02/18 01:09 CT Neck Soft Tissues shows: The visualized paranasal sinuses are clear. The pterygopalatine fossa, pterygoid plates and pterygoid muscles are unremarkable. There is severe extensive soft tissue thickening in the right lower pharynx, which has significantly worsened since the prior study. On the prior exam, this mass measures approximate 2.5 x 3.1 x 6.4 cm. On today's examination, a soft tissue mass measures 5.0 x 6.8 x 10.3 cm. There is complete occlusion of the airway. Tracheostomy is noted. The visualized osseous structures are intact. The airway is patent. No focal mass is appreciated. There is no evidence of lymphade nopathy. The thyroid gland appears unremarkable. The superficial soft tissues are unremarkable. Impression: 1. Significant increase in size of the right lower pharyngeal soft tissue mass. Occlusion of the airway has worsened since the prior study. Overall extent and size of the mass has increased. 2. Tracheostomy remains in place. 3. The other CT findings are grossly stable. CT Chest : There is no thoracic lymphadenopathy. The visualized portions of the thyroid gland is unremarkable. There are no pericardial or pleural effusions. Moderate emphysema is noted with upper lobe predominance. There is material demonstrated within the right main stem bronchus. The esophagus is severely dilated with gas. Limited imaging of the upper abdomen does not demonstrate any acute abnormalities. There are no suspicious osseous lesions. Impression: 1. No acute infiltrates or nodules. 2. Moderate emphysema with upper lobe predominance. 3. Debris is seen in the right main stem bronchus, likely representing a mucus plug. 4. Gaseous distention of the esophagus consistent with achalasia. Electronically signed on Jul 02, 2018 1:08:25 AM EDT by: Rosales Lopez M.D., Certified by ABR, MSK, Neuroradiology 07/02/18 01:[address] Canchola, who is aware and agrees with plan. Accepts pt in to hospitalist service. Pt will be admitted to Telemetry for oropharyngeal cancer/mass and hemoptysis. - Lab Interpretations Lab Results: 07/01/18 21:02 Lab Results 07/01/18 21:02: WBC 18.5 H D, RBC 3.69, Hgb 11.2 L, Hct 33.2 L, MCV 90.0, MCH 30.4, MCHC 33.7, RDW 15.0 H, Plt Count 684 H, MPV 11.6 H, Gran % 83.3 H, Lymph % (Auto) 11.4 L, Atkinson % (Auto) 4.8, Eos % (Auto) 0.4 L, Baso % (Auto) 0.1, Gran # 15.45 H, Lymph # (Auto) 2.1, Atkinson # (Auto) 0.9 H, Eos # (Auto) 0.1, Baso # (Auto) 0.01 - RAD Interpretation Radiology Orders: 07/01/18 19:45 NECK SOFT TISSUE W/CONTRAST [CT] Stat 07/01/18 21:45 CHEST W/CONTRAST [CT] Stat Disposition/Present on Arrival - Present on Arrival Any Indicators Present on Arrival: No History of DVT/PE: No History of Uncontrolled Diabetes: Yes Urinary Catheter: No History of Decub. Ulcer: No History Surgical Site Infection Following: None - Disposition Have Diagnosis and Disposition been Completed?: Yes Diagnosis: Oropharyngeal mass, Laryngeal cancer, Hemoptysis Disposition: HOSPITALIZED Disposition Time: 01:17 Patient Plan: Admission Patient Problems: Current Active Problems Problem Status Onset Hemoptysis Acute Laryngeal cancer Acute Oropharyngeal mass Acute Condition: STABLE
[2018-07-02] MEDS ORDERED: cefTRIAXone 1 gm 1 GM/100 ML BAG IV STA (00:54)
[2018-07-02] MEDS ORDERED: Azithromycin 500MG/NS 250ml 500 MG/250 ML BAG IV STA (00:56)
[2018-07-02 01:20] LABS: ALB/GLOB RATIO 0.7 (1.1-1.8); ALBUMIN 3.3 g/dL (3.0-4.8); ALT/SGPT 49 U/L (7-56); AST/SGOT 51 U/L (17-59); BLOOD UREA NITROGEN 18 mg/dL (7-21); CALCIUM 11.1 mg/dL (8.4-10.5); GFR NON-AFRICAN AMERICAN > 60
[2018-07-02 02:52] LABS: TROPONIN I 0.02 ng/mL
[2018-07-02] MEDS ORDERED: Iodixanol 320 MG/ML 100 ML BOTTLE IV ONE (03:06)
--- NOTE | 2018-07-02 03:29 | CP.PCM.HP ---
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 Subsequently in 2016 patient was found to have recurrence of throat CA. He presented most recently in 05/2018 w/ large soft tissue mass in oropharyngeal region; during this visit patient received PEG tube placement. He was to follow up with heme/onc Dr. Cleveland however reported he was unable to make appt due to poor transportation. Patient reports he currently not undergoing radiation/chemotherapy at this time. Remainder of PMH is significant for COPD, Seizure, and arthritis. He [place] [facility] [place] w/ complaints of SOB, Hemoptysis, worsening secretions over the past month. Patient reports hemoptysis as light pink tinged mucopurlent sputum does not report overtly bloody or clotted sputum. He says his SOB feels as if he is not getting enough air through his tracheostomy. Patient reported he sees ENT Dr. Tapia for trach management. Upon ROS: Admits to chronic constipation; Denies any Fevers, Chills, Chest Pain, Abd pain, N/V/D, Urinary Discomfort, Numbness/tingling headache dizziness. Remainder 12 system ROS is negative. PMD: Reisner PMH: As above PSH: Tracheostomy 2012, PEG 05/2018 ALL: NKDA Social Hx: Extensive smoking Hx, Denies EtOH, Denies illicit Heme/Onc: Cristofer? Home Rx: Phenytoin 300 QPM, Keppra 500 BID, ASA 81 QD, Duoneb NAVEEN TID, Reglan 5mg PRN - Confirmed w/ pharmacy Present on Admission - Present on Admission Any Indicators Present on Admission: No Review of Systems - Review of Systems All systems: reviewed and no additional remarkable complaints except Review of Systems: As per HPI Past Patient History - Infectious Disease Hx of Infectious Diseases: None - Past Medical History & Family History Past Medical History?: Yes - Past Social History Smoking Status: Former Smoker - CARDIAC Hx Hypertension: Yes - PULMONARY Hx Chronic Obstructive Pulmonary Disease (COPD): Yes Other/Comment: Laryngeal CA s/p laryngectomy and tracheostomy - NEUROLOGICAL Hx Neurological Disorder: Yes Hx Seizures: Yes (Well controlled with medication) - HEENT Hx HEENT Problems: Yes Other/Comment: blurry vision mild - RENAL Hx Chronic Kidney Disease: No - ENDOCRINE/METABOLIC Hx Diabetes Mellitus Type 2: Yes (DIET CONTROLLED) - HEMATOLOGICAL/ONCOLOGICAL Hx Cancer: Yes (Throat cancer) - INTEGUMENTARY Hx Dermatological Problems: No Other/Comment: Dry skin scattered throughout body - MUSCULOSKELETAL/RHEUMATOLOGICAL Hx Falls: Yes - GASTROINTESTINAL Hx Gastrointestinal Disorders: Yes (G tube) - GENITOURINARY/GYNECOLOGICAL Hx Genitourinary Disorders: No - PSYCHIATRIC Hx Psychophysiologic Disorder: No Hx Substance Use: No - SURGICAL HISTORY Other/Comment: Permanent tracheostomy, Neck surgery to remove Ca - ANESTHESIA Hx Anesthesia Reactions: No Hx Malignant Hyperthermia: No Meds Allergies/Adverse Reactions: Allergies Allergy/AdvReac Type Severity Reaction Status Date / Time No Known Allergies Allergy Verified 07/02/18 21:04 Physical Exam - Constitutional Appears: Well, Non-toxic, No Acute Distress - Head Exam Head Exam: ATRAUMATIC, NORMAL INSPECTION, NORMOCEPHALIC - Eye Exam Eye Exam: EOMI Additional comments: Pupiles are equal round and reactive; No Scleral icterus BL Exotropia - ENT Exam ENT Exam: Mucous Membranes Moist Additional comments: Yellow thrush like appearance on tongue Trach is necrotic appearing with some scaring; some mucopurlent discharge No appliance/ trach collar is in place at this time; Does not have surrounding erythema. Results - Vital Signs Recent Vital Signs: Last Vital Signs Temp 98.2 F 07/01/18 18:21 Pulse 98 H 07/01/18 18:21 Resp 18 07/01/18 18:21 BP 107/62 07/01/18 18:21 Pulse Ox 92 L 07/01/18 18:21 - Labs Result Diagrams: 07/01/18 21:02 07/02/18 00:30 Labs: Laboratory Results - last 24 hr 07/01/18 07/02/18 07/02/18 21:02 00:30 00:30 WBC 18.5 H D RBC 3.69 Hgb 11.2 L Hct 33.2 L MCV 90.0 MCH 30.4 MCHC 33.7 RDW 15.0 H Plt Count 684 H MPV 11.6 H Gran % 83.3 H Lymph % (Auto) 11.4 L [place] % (Auto) 4.8 Eos % (Auto) 0.4 L Baso % (Auto) 0.1 Gran # 15.45 H Lymph # (Auto) 2.1 [place] # (Auto) 0.9 H Eos # (Auto) 0.1 Baso # (Auto) 0.01 Sodium 140 Potassium 4.0 Chloride 100 Carbon Dioxide 34 H Anion Gap 10 BUN 18 Creatinine 0.5 L Est GFR ( Amer) > 60 Est GFR (Non-Af Amer) > 60 Random Glucose 144 H Calcium 11.1 H Magnesium 2.0 Total Bilirubin 1.2 AST 51 ALT 49 Alkaline Phosphatase 146 H D Troponin I 0.02 Total Protein 7.8 Albumin 3.3 Globulin 4.5 Albumin/Globulin Ratio 0.7 L Blood Type A POSITIVE Antibody Screen Negative BBK History Checked Patient has bt Assessment & Plan - Assessment and Plan (Free Text) Assessment: 73M w/ a complex onocologic history PMH is significant for COPD, Seizure, and arthritis. Presented to [facility] on 07/[facility] w/ CC of Hemoptysis + SOB. Admitted for management and workup of SOB, Hemoptysis, and Oropharyngeal cancer. Hemoptysis: Most likely 2/2 Oropharyngeal mets/ increasing tumor burden; however given WBC elevations and Tachycardia must R/o PE ; R/o HCAP VQ Scan pending Start Empiric Vanc/Zosyn for HCAP coverage Procal pending ID Consulted Heme/Onc Consulted, appreciate reccs SOB: CTAP Performed - questionable for mucous plug Mucous Plugging vs Insufficient trach size Chest PT Duonebs NAVEEN + NAC ENT Dr. Tapia consulted, appreciate reccs Pulm Consulted, appreciate reccs Hx Oropharyngeal SCC: Patient has no definitive plans for management at this point; Could not make appt w/ Dr. Cleveland as previously thought PET CT on 06/14/18 shows oropharyngeal involvement w/ metastatic adenopathy Heme Onc consulted as above Consider palliatve care Hx COPD: Duonebs NAVEEN TID / NAC IH TID Chest PT Hx Sz: Dilantin level Keppra Level Sz precautions Ativan 1Q15m PRN seizure PPX: DVT - SCD GI - Protonix DIET: VITAL AF 1.2 Tube Feed - Date & Time Date: 07/02/18 Time: 07:51 <Juan Miguel Canchola - Last Filed: 07/04/18 22:58> Results - Vital Signs Recent Vital Signs: Last Vital Signs Temp 98.4 F 07/04/18 17:05 Pulse 89 07/04/18 18:00 Resp 20 07/04/18 17:05 BP 131/71 07/04/18 17:05 Pulse Ox 99 07/04/18 17:05 - Labs Result Diagrams: 07/04/18 05:30 07/04/18 05:30 Labs: Laboratory Results - last 24 hr 07/04/18 07/04/18 07/04/18 05:30 05:30 09:00 WBC 19.2 H RBC 2.97 L Hgb 8.6 L Hct 27.1 L MCV 91.2 MCH 29.0 MCHC 31.7 RDW 14.8 H Plt Count 452 H MPV 10.4 Gran % 81.5 H Lymph % (Auto) 9.9 L [place] % (Auto) 7.8 H Eos % (Auto) 0.7 L Baso % (Auto) 0.1 Gran # 15.69 H Lymph # (Auto) 1.9 [place] # (Auto) 1.5 H Eos # (Auto) 0.1 Baso # (Auto) 0.01 pCO2 pO2 HCO3 ABG pH ABG Total CO2 ABG O2 Saturation ABG O2 Content ABG Base Excess ABG Hemoglobin ABG Carboxyhemoglobin POC ABG HHb (Measured) ABG Methemoglobin ABG O2 Capacity Hgb O2 Saturation FiO2 Sodium 143 Potassium 3.4 L Chloride 109 H Carbon Dioxide 28 Anion Gap 8 L BUN 17 Creatinine 0.6 L Est GFR ( Amer) > 60 Est GFR (Non-Af Amer) > 60 Random Glucose 151 H Calcium 10.1 Total Bilirubin 1.2 AST 48 ALT 49 Alkaline Phosphatase 128 H Total Protein 6.6 Albumin 2.7 L Globulin 3.8 Albumin/Globulin Ratio 0.7 L Vancomycin Trough 26.1 H* 07/04/18 09:58 WBC RBC Hgb Hct MCV MCH MCHC RDW Plt Count MPV Gran % Lymph % (Auto) [place] % (Auto) Eos % (Auto) Baso % (Auto) Gran # Lymph # (Auto) [place] # (Auto) Eos # (Auto) Baso # (Auto) pCO2 42 pO2 103.0 H HCO3 29.2 H ABG pH 7.45 ABG Total CO2 30.5 H ABG O2 Saturation 100.3 H ABG O2 Content 11.8 L ABG Base Excess 4.8 H ABG Hemoglobin 8.5 L ABG Carboxyhemoglobin 2.6 H POC ABG HHb (Measured) -0.3 L ABG Methemoglobin 1.0 ABG O2 Capacity 11.8 L Hgb O2 Saturation 96.8 FiO2 30.0 Sodium Potassium Chloride Carbon Dioxide Anion Gap BUN Creatinine Est GFR ( Amer) Est GFR (Non-Af Amer) Random Glucose Calcium Total Bilirubin AST ALT Alkaline Phosphatase Total Protein Albumin Globulin Albumin/Globulin Ratio Vancomycin Trough Attending/Attestation - Attestation I have personally seen and examined this patient.: Yes I have fully participated in the care of the patient.: Yes I have reviewed all pertinent clinical information: Yes
[2018-07-02] MEDS ORDERED: Vancomycin 1.5 GM in Sodium Chloride 0.9% 500 ML IVPB SCH ×2 (03:45→16:48)
[2018-07-02] MEDS ORDERED: Metoclopramide 5 mg/5 ml Oral Sol PO PRN (03:52)
[2018-07-02] MEDS ORDERED: Piperacillin/Tazobact 3.375 gm 100 ML IVPB SCH ×2 (04:32→06:00)
[2018-07-02] MEDS: Levalbuterol 0.63 MG/3 ML Inhal Soln UD IH SCH ×4 (05:18→21:20)
--- NOTE | 2018-07-02 09:13 | CP.PCM.PN ---
Subjective - Date & Time of Evaluation Date of Evaluation: 07/02/18 Time of Evaluation: 08:30 - Subjective Subjective: Alexey Mahmood DO, PGY-1 Hospitalist Progress Note for Dr. Stacey Cleveland Patient was seen and examined at bedside in ED this AM. He states that he feels better after suctioning of secretions but still has intermittent SOB. He states hemoptysis has improved since suctioning. He denies fever, chills, CP, abdominal pain/nausea/vomiting. Objective - Vital Signs/Intake and Output Vital Signs (last 24 hours): Temp Pulse Resp BP Pulse Ox 98.2 F 98 H 20 105/60 97 07/01/18 18:21 07/02/18 06:00 07/02/18 06:00 07/02/18 06:00 07/02/18 06:00 - Medications Medications: Current Medications Acetylcysteine (Acetylcysteine 20%) 4 ml IH TID NAVEEN Albuterol/Ipratropium (Duoneb 3 Mg/0.5 Mg (3 Ml) Ud) 3 ml IH TIDRESP PRN PRN Reason: Shortness of Breath Vancomycin HCl 1.5 gm/ Sodium (Chloride) 500 mls @ 167 mls/hr IVPB Q12H NAVEEN; Protocol Last Admin: 07/02/18 05:59 Dose: 167 mls/hr Piperacillin Sod/Tazobactam Sod (Zosyn 3.375 In Ns 100ml) 100 mls @ 25 mls/hr IVPB Q6H NAVEEN; Protocol Stop: 07/02/18 14:29 Levalbuterol HCl (Xopenex) 0.63 mg IH TIDRESP NAVEEN Last Admin: 07/02/18 05:18 Dose: 0.63 mg Levetiracetam (Keppra) 500 mg PO BID NAVEEN Lorazepam (Ativan) 1 mg IVP Q15M PRN; Protocol PRN Reason: Seizure activity Metoclopramide HCl (Reglan) 5 mg PO DAILY PRN PRN Reason: Constipation Pantoprazole Sodium (Protonix Inj) 40 mg IVP DAILY NAVEEN Phenytoin (Dilantin) 100 mg PO TID NAVEEN - Labs Labs: 07/01/18 21:02 07/02/18 00:30 - Constitutional Appears: Non-toxic, No Acute Distress - Head Exam Head Exam: ATRAUMATIC, NORMOCEPHALIC - Eye Exam Eye Exam: EOMI, Normal appearance, PERRL - ENT Exam ENT Exam: Mucous Membranes Dry - Neck Exam Neck Exam: Full ROM Additional comments: tracheostomy clean, dry, intact - Respiratory Exam Respiratory Exam: Clear to Ausculation Bilateral, NORMAL BREATHING PATTERN. absent: Accessory Muscle Use, Rales, Rhonchi, Wheezes, Respiratory Distress - Cardiovascular Exam Cardiovascular Exam: REGULAR RHYTHM, RRR, +S1, +S2. absent: Gallop, Rubs, Murmur
[2018-07-02] MEDS ORDERED: cefTRIAXone 1 gm 1 GM/100 ML BAG IVPB SCH (10:00)
--- NOTE | 2018-07-02 10:17 | CARD ---
APPROVED REPORT Date of service: 07/01/2018 EKG Measurement Heart [id number] <Conclusion> Sinus rhythm with premature atrial complexes Inferior infarct, age undetermined
[2018-07-02] MEDS: Acetylcysteine 20% Inhal Soln (4ml) IH SCH ×3 (10:52→21:20)
[2018-07-02 12:01] LABS: BASO # 0.02 K/mm3 (0.0-2.0); BASO % 0.1 % (0.0-3.0); EOS # 0.1 (0.0-0.7); EOS % 0.5 % (1.5-5.0); GRAN # 16.25 (1.4-6.5); GRAN % 85.4 % (50.0-68.0); HEMOGLOBIN 10.7 g/dL (14.0-18.0); LYMPH # 1.5 (1.2-3.4); LYMPH % 8.1 % (22.0-35.0); MEAN CELL VOLUME 91.5 fl (80.0-105.0); MEAN CORPUSCULAR HEMOGLOBIN 29.3 pg (25.0-35.0); MEAN PLATELET VOLUME 10.4 fl (7.0-11.0); MONO # 1.1 (0.1-0.6); MONO % 5.9 % (1.0-6.0); RBC 3.65 10^6/uL (3.5-6.1); RED CELL DISTRIBUTION WIDTH 14.4 % (11.5-14.5)
[2018-07-02] MEDS: Piperacillin/Tazobact 3.375 gm 100 ML IVPB SCH ×2 (12:01→18:10)
[2018-07-02 12:11] LABS: ALB/GLOB RATIO 0.7 (1.1-1.8); ALBUMIN 3.4 g/dL (3.0-4.8); ALT/SGPT 47 U/L (7-56); AST/SGOT 58 U/L (17-59); BLOOD UREA NITROGEN 16 mg/dL (7-21); CALCIUM 11.6 mg/dL (8.4-10.5); GFR NON-AFRICAN AMERICAN > 60
--- NOTE | 2018-07-02 12:11 | RAD ---
Date of service: 07/02/2018 HISTORY: sob COMPARISON: Frontal portable chest 05/26/2018. TECHNIQUE: Chest PA and lateral FINDINGS: LUNGS: Prior left mid left pulmonary and perihilar infiltrate has resolved. No new infiltrate is appreciated bilaterally. Multifocal bullous emphysematous change are appreciate the upper greater than lower lobes once again. PLEURA: No significant pleural effusion identified. No pneumothorax apparent. CARDIOVASCULAR: No aortic atherosclerotic calcification present OSSEOUS STRUCTURES: No significant abnormalities. VISUALIZED UPPER ABDOMEN: Normal. OTHER FINDINGS: None. IMPRESSION: COPD changes reiterated with resolution of prior mid and perihilar left-sided infiltrate now evident. No acute cardiovascular changes.
[2018-07-02] MEDS: levETIRAcetam Solution 100 MG/ML BOTTLE PO SCH ×2 (12:12→18:16)
[2018-07-02] MEDS: Phenytoin 125 mg/5 ml Oral Susp (237 ml) PO SCH ×3 (12:13→18:16)
--- NOTE | 2018-07-02 12:37 | CT ---
Date of service: 07/01/2018 PROCEDURE: CT NECK WITHOUT CONTRAST HISTORY: hemoptysis/oropharyngeal CA COMPARISON: 05/17/2018 TECHNIQUE: CT of the neck without intravenous contrast. Coronal and sagittal reformats generated. Radiation dose: DLP mGy-cm This CT exam was performed using one or more of the following dose reduction techniques: Automated exposure control, adjustment of the mA and/or kV according to patient size, and/or use of iterative reconstruction technique. FINDINGS: NASOPHARYNX: Unremarkable. SUPRAHYOID NECK: Unremarkable oropharynx, oral cavity, parapharyngeal space and retropharyngeal space. INFRAHYOID NECK: Status post laryngectomy with severe extensive soft tissue thickening in the right lower pharynx which is significantly worsened since the prior examination. On the prior examination this mass measured roughly 2.5 x 3.1 x 6.4 centimeters. On the current examination this mass measures roughly 5.0 x 6.8 x 10.3 centimeters. There is complete occlusion of the airway. There is a tracheostomy. GLANDS: Parotid and submandibular glands unremarkable. Normal size thyroid gland, without nodule. LYMPH NODES: Normal. No lymphadenopathy. CERVICAL SPINE: No fracture or focal lesion. OTHER FINDINGS: None. IMPRESSION: Significant increase in size of the right lower pharyngeal soft tissue mass with occlusion of the airway worsened since the prior examination. Overall extent and size of the mass has increased. Tracheostomy in place. Other CT findings are grossly stable. PROCEDURE: CT Chest without contrast HISTORY: hemoptysis/oropharyngeal CA COMPARISON: None available. TECHNIQUE: Contiguous axial images were obtained through the chest without intravenous contrast enhancement. Sagittal and coronal reconstructions were performed. Radiation dose (DLP): mGy-cm. This CT exam was performed using one or more of the following dose reduction techniques: Automated exposure control, adjustment of the mA and/or kV according to patient size, and/or use of iterative reconstruction technique. FINDINGS: LUNGS: Bullous emphysematous disease. MEDIASTINUM: Unremarkable thoracic aorta. No aneurysm. Normal sized heart. Main pulmonary artery unremarkable. No vascular congestion. No lymphadenopathy. PLEURA: No pleural fluid. No pneumothorax. BONES: No fracture. No destructive lesion. UPPER ABDOMEN: Gastrostomy tube in place. OTHER FINDINGS: None. IMPRESSION: Bullous emphysema.
--- NOTE | 2018-07-02 13:57 | CP.PCM.CON ---
History of Present Illness - History of Present Illness History of Present Illness: Hematology/Oncology Consultation (Dr. Alexandra's Service) CC: Squamous Cell Carcinoma of the Larynx HPI: Mr. Bermeo is a 73 year old male with a past medical history significant for laryngeal SCC (diagnosed in 2012) s/p laryngectomy, concurrent chemo/XRT s/p tracheostomy and PEG, COPD, and seizures who presents with SOB and intermittent blood tinged sputum. Patient reports that these complaints have been progressive over the past month. Although he has tracheostomy, patient reports that he believes he is not getting enough air through this. He reports followup with ENT (Dr. Tapia) who manages his trach and reports no changes have been made. He describes his blood tinged sputum as coming intermittently without gross hemorrh age or hemoptysis. Per chart review, patient was scheduled for hematology/oncology follow up with Dr. Cleveland but was unable to go to his appointment due to transportation issues. He does report that he completed his PET/CT scan, however. During his last admission, radiation oncology team was consulted for possible re-irradiation but was awaiting radiation records from Dr. Stevens's office prior to initiating this. He is currently not undergoing any chemotherapy or radiation. Patient denies any weight loss, recent travel, recent illness, fevers, chills, headache, changes in his vision, chest pain, palpitations, wheezing, abdominal pain, N/V/D/C, changes in urine output, skin changes or any numbness/tingling/weakness of any extremity. Of note, CT soft tissue of neck showed progression of previously recorded laryngeal tumor from 2.5x3.1x6.4cm to now 5.0x6.8x10.3cm. PMH: As above PSH: Laryngectomy, tracheostomy Family History: Mother-Colon Cancer; Father-Liver Cancer Social History: Prior heavy tobacco use; Denies any alcohol or illicit drug use Allergies: NKDA Home Medications: As per MAR Meds: As per MAR, reviewed Review of Systems - Review of Systems Review of Systems: As stated in HPI, otherwise negative Past Patient History - Infectious Disease Hx of Infectious Diseases: None - Past Medical History & Family History Past Medical History?: Yes - Past Social History Smoking Status: Former Smoker - CARDIAC Hx Hypertension: Yes - PULMONARY Hx Chronic Obstructive Pulmonary Disease (COPD): Yes Other/Comment: Laryngeal CA s/p laryngectomy and tracheostomy - NEUROLOGICAL Hx Neurological Disorder: Yes Hx Seizures: Yes (Well controlled with medication) - HEENT Hx HEENT Problems: Yes Other/Comment: blurry vision mild - RENAL Hx Chronic Kidney Disease: No - ENDOCRINE/METABOLIC Hx Diabetes Mellitus Type 2: Yes (DIET CONTROLLED) - HEMATOLOGICAL/ONCOLOGICAL Hx Cancer: Yes (Throat cancer) - INTEGUMENTARY Hx Dermatological Problems: No Other/Comment: Dry skin scattered throughout body - MUSCULOSKELETAL/RHEUMATOLOGICAL Hx Falls: Yes - GASTROINTESTINAL Hx Gastrointestinal Disorders: Yes (G tube) - GENITOURINARY/GYNECOLOGICAL Hx Genitourinary Disorders: No - PSYCHIATRIC Hx Psychophysiologic Disorder: No Hx Substance Use: No - SURGICAL HISTORY Other/Comment: Permanent tracheostomy, Neck surgery to remove Ca - ANESTHESIA Hx Anesthesia Reactions: No Hx Malignant Hyperthermia: No Meds Allergies/Adverse Reactions: Allergies Allergy/AdvReac Type Severity Reaction Status Date / Time No Known Allergies Allergy Verified 07/02/18 21:04 - Medications Medications: Current Medications Acetylcysteine (Acetylcysteine 20%) 4 ml IH TID NAVEEN Last Admin: 07/02/18 10:52 Dose: 4 ml Albuterol/Ipratropium (Duoneb 3 Mg/0.5 Mg (3 Ml) Ud) 3 ml IH TIDRESP PRN PRN Reason: Shortness of Breath Vancomycin HCl 1.5 gm/ Sodium (Chloride) 500 mls @ 167 mls/hr IVPB Q12H NAVEEN; Protocol Last Admin: 07/02/18 05:59 Dose: 167 mls/hr Piperacillin Sod/Tazobactam Sod (Zosyn 3.375 In Ns 100ml) 100 mls @ 25 mls/hr IVPB Q8H NAVEEN; Protocol Stop: 07/02/18 22:44 Last Admin: 07/02/18 12:01 Dose: 25 mls/hr Levalbuterol HCl (Xopenex) 0.63 mg IH TIDRESP NAVEEN Last Admin: 07/02/18 10:30 Dose: 0.63 mg Levetiracetam (Keppra) 500 mg PO BID NAVEEN Last Admin: 07/02/18 12:12 Dose: 500 mg Lorazepam (Ativan) 1 mg IVP Q15M PRN; Protocol PRN Reason: Seizure activity Metoclopramide HCl (Reglan) 5 mg PO DAILY PRN PRN Reason: Constipation Pantoprazole Sodium (Protonix Inj) 40 mg IVP DAILY [facility] Last Admin: 07/02/18 10:50 Dose: 40 mg Phenytoin (Dilantin) 100 mg PO TID [facility] Last Admin: 07/02/18 12:13 Dose: 100 mg Physical Exam - Constitutional Appears: Non-toxic, No Acute Distress - Head Exam Head Exam: ATRAUMATIC, NORMOCEPHALIC - Eye Exam Eye Exam: EOMI, Normal appearance - ENT Exam Additional comments: Stoma in place; No signs of clinical infection in surrounding soft tissue - Neck Exam Neck exam: Positive for: Full Rom - Respiratory Exam Respiratory Exam: Clear to Auscultation Bilateral, NORMAL BREATHING PATTERN. absent: Rales, Rhonchi, Wheezes - Cardiovascular Exam Cardiovascular Exam: REGULAR RHYTHM, +S1, +S2 - GI/Abdominal Exam GI & Abdominal Exam: Normal Bowel Sounds, Soft. absent: Tenderness - Extremities Exam Extremities exam: Positive for: normal inspection - Skin Skin Exam: Dry, Intact, Normal Color, Warm Results - Vital Signs Recent Vital Signs: Last Vital Signs Temp 98.1 F 07/02/18 12:00 Pulse 97 H 07/02/18 12:00 Resp 18 07/02/18 12:00 BP 118/68 07/02/18 12:00 Pulse Ox 100 07/02/18 12:00 - Labs Result Diagrams: 07/03/18 05:50 07/03/18 05:50 Labs: Laboratory Results - last 24 hr 07/01/18 07/02/18 07/02/18 21:02 00:30 00:30 WBC 18.5 H D RBC 3.69 Hgb 11.2 L Hct 33.2 L MCV 90.0 MCH 30.4 MCHC 33.7 RDW 15.0 H Plt Count 684 H MPV 11.6 H Gran % 83.3 H Lymph % (Auto) 11.4 L [place] % (Auto) 4.8 Eos % (Auto) 0.4 L Baso % (Auto) 0.1 Gran # 15.45 H Lymph # (Auto) 2.1 [place] # (Auto) 0.9 H Eos # (Auto) 0.1 Baso # (Auto) 0.01 Sodium 140 Potassium 4.0 Chloride 100 Carbon Dioxide 34 H Anion Gap 10 BUN 18 Creatinine 0.5 L Est GFR ( Amer) > 60 Est GFR (Non-Af Amer) > 60 Random Glucose 144 H Calcium 11.1 H Magnesium 2.0 Total Bilirubin 1.2 AST 51 ALT 49 Alkaline Phosphatase 146 H D Troponin I 0.02 Total Protein 7.8 Albumin 3.3 Globulin 4.5 Albumin/Globulin Ratio 0.7 L Blood Type A POSITIVE Antibody Screen Negative BBK History Checked Patient has bt 07/02/18 07/02/18 11:50 11:50 WBC 19.0 H RBC 3.65 Hgb 10.7 L Hct 33.4 L MCV 91.5 MCH 29.3 MCHC 32.0 RDW 14.4 Plt Count 502 H MPV 10.4 Gran % 85.4 H Lymph % (Auto) 8.1 L [place] % (Auto) 5.9 Eos % (Auto) 0.5 L Baso % (Auto) 0.1 Gran # 16.25 H Lymph # (Auto) 1.5 [place] # (Auto) 1.1 H Eos # (Auto) 0.1 Baso # (Auto) 0.02 Sodium 141 Potassium 4.1 Chloride 103 Carbon Dioxide 33 Anion Gap 9 L BUN 16 Creatinine 0.6 L Est GFR ( Amer) > 60 Est GFR (Non-Af Amer) > 60 Random Glucose 162 H Calcium 11.6 H Magnesium Total Bilirubin 1.5 H AST 58 ALT 47 Alkaline Phosphatase 137 H Troponin I Total Protein 7.9 Albumin 3.4 Globulin 4.5 Albumin/Globulin Ratio 0.7 L Blood Type Antibody Screen BBK History Checked Assessment & Plan - Assessment and Plan (Free Text) Assessment: 73 year old male with a past medical history significant for laryngeal SCC (diagnosed in 2012) s/p laryngectomy, concurrent chemo/XRT s/p tracheostomy and PEG, COPD, and seizures who presents with SOB and intermittent blood tinged sputum. Of note, CT soft tissue of neck showed progression of previously recorded laryngeal tumor from 2.5x3.1x6.4cm to now 5.0x6.8x10.3cm. PET/CT reviewed and showed metastatic adenopathy. Plan: -PET/CT reviewed and showed metastatic adenopathy -CT soft tissue H/N showed progression of tumor with measurements as stated above -Will discuss these findings with Radiation Oncology (Dr. Goldberg) -Palliative consultation noted, all recommendations appreciated -Continue with trach care and management as ordered -Further recommendations as per Dr. Alexandra Patient seen and case discussed with attending, Dr. Alexandra. Ferdinand Hatfield PGY2 - Date & Time Date: 07/02/18 Time: 13:54
--- NOTE | 2018-07-02 15:04 | CP.PCM.CON ---
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 Pt denies fver, chills, chest pain, sob, palpitations, STARR, dizziness. No other constitutional symptoms. Currently afebrile, BP stable, comfortable in NAD, doing well. 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, with recurrence, s/p PEG, COPD, Seizure, OA, smoking PSH: Tracheostomy 2012, PEG 05/2018 ALL: NKDA Social Hx: former smoker, Denies EtOH, Denies illicit MEDS: as per EMR Review of Systems - Review of Systems Review of Systems: as per HPI Past Patient History - Infectious Disease Hx of Infectious Diseases: None - Past Medical History & Family History Past Medical History?: Yes - Past Social History Smoking Status: Former Smoker - CARDIAC Hx Hypertension: Yes - PULMONARY Hx Chronic Obstructive Pulmonary Disease (COPD): Yes Other/Comment: Laryngeal CA s/p laryngectomy and tracheostomy - NEUROLOGICAL Hx Neurological Disorder: Yes Hx Seizures: Yes (Well controlled with medication) - HEENT Hx HEENT Problems: Yes Other/Comment: blurry vision mild - RENAL Hx Chronic Kidney Disease: No - ENDOCRINE/METABOLIC Hx Diabetes Mellitus Type 2: Yes (DIET CONTROLLED) - HEMATOLOGICAL/ONCOLOGICAL Hx Cancer: Yes (Throat cancer) - INTEGUMENTARY Hx Dermatological Problems: No Other/Comment: Dry skin scattered throughout body - MUSCULOSKELETAL/RHEUMATOLOGICAL Hx Falls: Yes - GASTROINTESTINAL Hx Gastrointestinal Disorders: Yes (G tube) - GENITOURINARY/GYNECOLOGICAL Hx Genitourinary Disorders: No - PSYCHIATRIC Hx Psychophysiologic Disorder: No Hx Substance Use: No - SURGICAL HISTORY Other/Comment: Permanent tracheostomy, Neck surgery to remove Ca - ANESTHESIA Hx Anesthesia Reactions: No Hx Malignant Hyperthermia: No Meds Allergies/Adverse Reactions: Allergies Allergy/AdvReac Type Severity Reaction Status Date / Time No Known Allergies Allergy Verified 07/02/18 12:41 - Medications Medications: Current Medications Acetylcysteine (Acetylcysteine 20%) 4 ml IH TID [facility] Last Admin: 07/02/18 10:52 Dose: 4 ml Albuterol/Ipratropium (Duoneb 3 Mg/0.5 Mg (3 Ml) Ud) 3 ml IH TIDRESP PRN PRN Reason: Shortness of Breath Vancomycin HCl 1.5 gm/ Sodium (Chloride) 500 mls @ 167 mls/hr IVPB Q12H [facility]; Protocol Last Admin: 07/02/18 05:59 Dose: 167 mls/hr Piperacillin Sod/Tazobactam Sod (Zosyn 3.375 In Ns 100ml) 100 mls @ 25 mls/hr IVPB Q8H [facility]; Protocol Stop: 07/02/18 22:44 Last Admin: 07/02/18 12:01 Dose: 25 mls/hr Levalbuterol HCl (Xopenex) 0.63 mg IH TIDRESP [facility] Last Admin: 07/02/18 10:30 Dose: 0.63 mg Levetiracetam (Keppra) 500 mg PO BID [facility] Last Admin: 07/02/18 12:12 Dose: 500 mg Lorazepam (Ativan) 1 mg IVP Q15M PRN; Protocol PRN Reason: Seizure activity Metoclopramide HCl (Reglan) 5 mg PO DAILY PRN PRN Reason: Constipation Pantoprazole Sodium (Protonix Inj) 40 mg IVP DAILY [facility] Last Admin: 07/02/18 10:50 Dose: 40 mg Phenytoin (Dilantin) 100 mg PO TID [facility] Last Admin: 07/02/18 12:13 Dose: 100 mg Physical Exam - Constitutional Appears: No Acute Distress, Older Than Stated Age, Cachectic, Chronically Ill - Head Exam Head Exam: NORMAL INSPECTION - ENT Exam Additional comments: + stoma in place - Respiratory Exam Respiratory Exam: Clear to Auscultation Bilateral, NORMAL BREATHING PATTERN - Cardiovascular Exam Cardiovascular Exam: REGULAR RHYTHM, +S1, +S2 - GI/Abdominal Exam GI & Abdominal Exam: Normal Bowel Sounds, Soft - Extremities Exam Extremities exam: Positive for: normal inspection Results - Vital Signs Recent Vital Signs: Last Vital Signs Temp 98.1 F 07/02/18 12:00 Pulse 97 H 07/02/18 12:00 Resp 18 07/02/18 12:00 BP 118/68 07/02/18 12:00 Pulse Ox 100 07/02/18 12:00 - Labs Result Diagrams: 07/02/18 11:50 07/02/18 11:50 Labs: Laboratory Results - last 24 hr 07/01/18 07/02/18 07/02/18 21:02 00:30 00:30 WBC 18.5 H D RBC 3.69 Hgb 11.2 L Hct 33.2 L MCV 90.0 MCH 30.4 MCHC 33.7 RDW 15.0 H Plt Count 684 H MPV 11.6 H Gran % 83.3 H Lymph % (Auto) 11.4 L [place] % (Auto) 4.8 Eos % (Auto) 0.4 L Baso % (Auto) 0.1 Gran # 15.45 H Lymph # (Auto) 2.1 [place] # (Auto) 0.9 H Eos # (Auto) 0.1 Baso # (Auto) 0.01 Sodium 140 Potassium 4.0 Chloride 100 Carbon Dioxide 34 H Anion Gap 10 BUN 18 Creatinine 0.5 L Est GFR ( Amer) > 60 Est GFR (Non-Af Amer) > 60 Random Glucose 144 H Calcium 11.1 H Magnesium 2.0 Total Bilirubin 1.2 AST 51 ALT 49 Alkaline Phosphatase 146 H D Troponin I 0.02 Total Protein 7.8 Albumin 3.3 Globulin 4.5 Albumin/Globulin Ratio 0.7 L Blood Type A POSITIVE Antibody Screen Negative BBK History Checked Patient has bt 07/02/18 07/02/18 11:50 11:50 WBC 19.0 H RBC 3.65 Hgb 10.7 L Hct 33.4 L MCV 91.5 MCH 29.3 MCHC 32.0 RDW 14.4 Plt Count 502 H MPV 10.4 Gran % 85.4 H Lymph % (Auto) 8.1 L [place] % (Auto) 5.9 Eos % (Auto) 0.5 L Baso % (Auto) 0.1 Gran # 16.25 H Lymph # (Auto) 1.5 [place] # (Auto) 1.1 H Eos # (Auto) 0.1 Baso # (Auto) 0.02 Sodium 141 Potassium 4.1 Chloride 103 Carbon Dioxide 33 Anion Gap 9 L BUN 16 Creatinine 0.6 L Est GFR ( Amer) > 60 Est GFR (Non-Af Amer) > 60 Random Glucose 162 H Calcium 11.6 H Magnesium Total Bilirubin 1.5 H AST 58 ALT 47 Alkaline Phosphatase 137 H Troponin I Total Protein 7.9 Albumin 3.4 Globulin 4.5 Albumin/Globulin Ratio 0.7 L Blood Type Antibody Screen BBK History Checked Assessment & Plan - Assessment and Plan (Free Text) Assessment: Patient is 73yo male with 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, with recurrence, s/p PEG, COPD, Seizure, OA, smoking a/w SOB, hemoptysis Hemopsys SOB Mucus in airway on CT EMphysema Smoking hx Pharyngeal mass Oropharyngeal SCC s/p Laryngectomy, and trach - currently afebrile,BP stable, comfortabel in NAD, parynchemal examination on CT demonstrates bullous emphysema, with some minimal mucus in airways with NO lung collapse/atelectasis; NO Definitive infiltrate - hemoptysis possibly from pharyngeal mass which has enlarged compared to previous radiographic examination - Chest PT - ENT consult - Hood PRN - ID eval for leukocytosis - would decrease dose of Vancomycin IV - Brogeno Pulmicort - DVT ppx
--- NOTE | 2018-07-02 15:08 | NM ---
Date of service: 07/02/2018 COMPARISON: 07/02/2018 two-view chest. 05/17/2018 CT neck and chest TECHNIQUE: 30.1 mCi technetium 99-m DTPA aerosol. 3.4 mCI technetium 99-m MAA administered intravenously. FINDINGS: VENTILATION COMPONENT: Heterogeneous accumulation of radionuclide within the lungs. This is particularly evident in the right lung. PERFUSION COMPONENT: Matched perfusion abnormalities right apex and right mid lung region. This corresponds to bullous changes in the upper lobes. These findings were identified on recent chest CT. IMPRESSION: Low probability ventilation perfusion scan for pulmonary embolism.
[2018-07-02] MEDS ORDERED: Azithromycin 250 MG in Sodium Chloride 0.9% 250 ML IVPB SCH (16:00)
[2018-07-02] MEDS: Sodium Chloride 0.9% 1,000 ML IV SCH (18:10)
[2018-07-02] MEDS: Vancomycin 1gm in NS 250ml 1 GM/250 ML BAG IVPB SCH (18:13)
[2018-07-02] MEDS ORDERED: Pneumococcal 23-Valent Vaccine IM ONE (21:27)
[2018-07-02] MEDS ORDERED: Influenza Vaccine 60 mcg/0.5 mL SYR (4YR UP) IM ONE (21:27)
--- NOTE | 2018-07-02 21:35 | CP.PCM.CON ---
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 Subsequently in 2016 patient was found to have recurrence of throat CA. He presented most recently in 05/2018 w/ large soft tissue mass in oropharyngeal region; during this visit patient received PEG tube placement. He was to follow up with heme/onc Dr. Cleveland however reported he was unable to make appt due to poor transportation. Patient reports he currently not undergoing radiation/chemotherapy at this time. Remainder of PMHx is significant for COPD, Seizure, and arthritis. He [place] [facility] [place] w/ complaints of SOB, Hemoptysis, worsening secretions over the past month. Patient reports hemoptysis as light pink tinged mucopurlent sputum does not report overtly bloody or clotted sputum. He says his SOB feels as if he is not getting enough air through his tracheostomy. Patient reported he sees ENT Dr. Tapia for trach management. ID called for evaluation of potential HCAP. CT Chest showing bullous emphysema but no infiltrate. 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 Active Medications Acetylcysteine (Acetylcysteine 20%) 4 ml IH TID [facility] Last Admin: 07/02/18 15:29 Dose: 4 ml Albuterol/Ipratropium (Duoneb 3 Mg/0.5 Mg (3 Ml) Ud) 3 ml IH TIDRESP PRN PRN Reason: Shortness of Breath Piperacillin Sod/Tazobactam Sod (Zosyn 3.375 In Ns 100ml) 100 mls @ 25 mls/hr IVPB Q8H [facility]; Protocol Stop: 07/02/18 22:44 Last Admin: 07/02/18 18:10 Dose: 25 mls/hr Sodium Chloride (Sodium Chloride 0.9%) 1,000 mls @ 125 mls/hr IV .Q8H [facility] Last Admin: 07/02/18 18:10 Dose: 125 mls/hr Vancomycin HCl (Vancomycin 1gm) 1 gm in 250 mls @ 167 mls/hr IVPB Q12H [facility]; Protocol Last Admin: 07/02/18 18:13 Dose: 167 mls/hr Levalbuterol HCl (Xopenex) 0.63 mg IH TIDRESP [facility] Last Admin: 07/02/18 15:29 Dose: 0.63 mg Levetiracetam (Keppra) 500 mg PO BID [facility] Last Admin: 07/02/18 18:16 Dose: 500 mg Lorazepam (Ativan) 1 mg IVP Q15M PRN; Protocol PRN Reason: Seizure activity Metoclopramide HCl (Reglan) 5 mg PO DAILY PRN PRN Reason: Constipation Pantoprazole Sodium (Protonix Inj) 40 mg IVP DAILY [facility] Last Admin: 07/02/18 10:50 Dose: 40 mg Phenytoin (Dilantin) 100 mg PO TID [facility] Last Admin: 07/02/18 18:16 Dose: 100 mg Family Hx: none given ROS: Worsening SOB and hemoptysis. No chest pain, abdominal pain, melena, hematuria, hematemesis, hematochezia, depression, anxiety, diarrhea, headaches, dizziness, vision loss Past Patient History - Infectious Disease Hx of Infectious Diseases: None - Past Medical History & Family History Past Medical History?: Yes - Past Social History Smoking Status: Former Smoker - CARDIAC Hx Hypertension: Yes - PULMONARY Hx Chronic Obstructive Pulmonary Disease (COPD): Yes Other/Comment: Laryngeal CA s/p laryngectomy and tracheostomy - NEUROLOGICAL Hx Neurological Disorder: Yes Hx Seizures: Yes (Well controlled with medication) - HEENT Hx HEENT Problems: Yes Other/Comment: blurry vision mild - RENAL Hx Chronic Kidney Disease: No - ENDOCRINE/METABOLIC Hx Diabetes Mellitus Type 2: Yes (DIET CONTROLLED) - HEMATOLOGICAL/ONCOLOGICAL Hx Cancer: Yes (Throat cancer) - INTEGUMENTARY Hx Dermatological Problems: No Other/Comment: Dry skin scattered throughout body - MUSCULOSKELETAL/RHEUMATOLOGICAL Hx Falls: Yes - GASTROINTESTINAL Hx Gastrointestinal Disorders: Yes (G tube) - GENITOURINARY/GYNECOLOGICAL Hx Genitourinary Disorders: No - PSYCHIATRIC Hx Psychophysiologic Disorder: No Hx Substance Use: No - SURGICAL HISTORY Other/Comment: Permanent tracheostomy, Neck surgery to remove Ca - ANESTHESIA Hx Anesthesia Reactions: No Hx Malignant Hyperthermia: No Meds Allergies/Adverse Reactions: Allergies Allergy/AdvReac Type Severity Reaction Status Date / Time No Known Allergies Allergy Verified 07/02/18 12:41 - Medications Medications: Current Medications Acetylcysteine (Acetylcysteine 20%) 4 ml IH TID [facility] Last Admin: 07/02/18 15:29 Dose: 4 ml Albuterol/Ipratropium (Duoneb 3 Mg/0.5 Mg (3 Ml) Ud) 3 ml IH TIDRESP PRN PRN Reason: Shortness of Breath Piperacillin Sod/Tazobactam Sod (Zosyn 3.375 In Ns 100ml) 100 mls @ 25 mls/hr IVPB Q8H [facility]; Protocol Stop: 07/02/18 22:44 Last Admin: 07/02/18 18:10 Dose: 25 mls/hr Sodium Chloride (Sodium Chloride 0.9%) 1,000 mls @ 125 mls/hr IV .Q8H [facility] Last Admin: 07/02/18 18:10 Dose: 125 mls/hr Vancomycin HCl (Vancomycin 1gm) 1 gm in 250 mls @ 167 mls/hr IVPB Q12H [facility]; Protocol Last Admin: 07/02/18 18:13 Dose: 167 mls/hr Levalbuterol HCl (Xopenex) 0.63 mg IH TIDRESP [facility] Last Admin: 07/02/18 15:29 Dose: 0.63 mg Levetiracetam (Keppra) 500 mg PO BID [facility] Last Admin: 07/02/18 18:16 Dose: 500 mg Lorazepam (Ativan) 1 mg IVP Q15M PRN; Protocol PRN Reason: Seizure activity Metoclopramide HCl (Reglan) 5 mg PO DAILY PRN PRN Reason: Constipation Pantoprazole Sodium (Protonix Inj) 40 mg IVP DAILY [facility] Last Admin: 07/02/18 10:50 Dose: 40 mg Phenytoin (Dilantin) 100 mg PO TID [facility] Last Admin: 07/02/18 18:16 Dose: 100 mg Physical Exam - Constitutional Appears: Non-toxic, No Acute Distress, Chronically Ill - Head Exam Head Exam: ATRAUMATIC, NORMOCEPHALIC - Eye Exam Eye Exam: EOMI, PERRL Pupil Exam: NORMAL ACCOMODATION, PERRL - ENT Exam ENT Exam: Mucous Membranes Moist, Normal External Ear Exam, TM's Normal Bilaterally Additional comments: stoma in place. - Respiratory Exam Respiratory Exam: Decreased Breath Sounds, Clear to Auscultation Bilateral. absent: Rales, Rhonchi, Wheezes - Cardiovascular Exam Cardiovascular Exam: REGULAR RHYTHM, RRR, +S1, +S2 - GI/Abdominal Exam GI & Abdominal Exam: Normal Bowel Sounds, Soft. absent: Distended, Tenderness - Extremities Exam Extremities exam: Positive for: full ROM, normal inspection - Neurological Exam Neurological exam: Alert, CN II-XII Intact, Oriented x3 - Psychiatric Exam Psychiatric exam: Normal Affect, Normal Mood - Skin Skin Exam: Intact, Normal Color Results - Vital Signs Recent Vital Signs: Last Vital Signs Temp 98.4 F 07/02/18 18:30 Pulse 94 H 07/02/18 18:30 Resp 20 07/02/18 18:30 BP 127/74 07/02/18 18:30 Pulse Ox 96 07/02/18 18:30 - Labs Result Diagrams: 07/02/18 11:50 07/02/18 11:50 Labs: Laboratory Results - last 24 hr 07/01/18 07/02/18 07/02/18 21:02 00:30 00:30 WBC 18.5 H D RBC 3.69 Hgb 11.2 L Hct 33.2 L MCV 90.0 MCH 30.4 MCHC 33.7 RDW 15.0 H Plt Count 684 H MPV 11.6 H Gran % 83.3 H Lymph % (Auto) 11.[address] [facility] % (Auto) 4.8 Eos % (Auto) 0.4 L Baso % (Auto) 0.1 Gran # 15.45 H Lymph # (Auto) 2.1 [facility] # (Auto) 0.9 H Eos # (Auto) 0.1 Baso # (Auto) 0.01 Sodium 140 Potassium 4.0 Chloride 100 Carbon Dioxide 34 H Anion Gap 10 BUN 18 Creatinine 0.5 L Est GFR ( Amer) > 60 Est GFR (Non-Af Amer) > 60 Random Glucose 144 H Calcium 11.1 H Magnesium 2.0 Total Bilirubin 1.2 AST 51 ALT 49 Alkaline Phosphatase 146 H D Troponin I 0.02 Total Protein 7.8 Albumin 3.3 Globulin 4.5 Albumin/Globulin Ratio 0.7 L Blood Type A POSITIVE Antibody Screen Negative BBK History Checked Patient has bt 07/02/18 07/02/18 11:50 11:50 WBC 19.0 H RBC 3.65 Hgb 10.7 L Hct 33.4 L MCV 91.5 MCH 29.3 MCHC 32.0 RDW 14.4 Plt Count 502 H MPV 10.4 Gran % 85.4 H Lymph % (Auto) 8.[address] [facility] % (Auto) 5.9 Eos % (Auto) 0.5 L Baso % (Auto) 0.1 Gran # 16.25 H Lymph # (Auto) 1.5 [facility] # (Auto) 1.1 H Eos # (Auto) 0.1 Baso # (Auto) 0.02 Sodium 141 Potassium 4.1 Chloride 103 Carbon Dioxide 33 Anion Gap 9 L BUN 16 Creatinine 0.6 L Est GFR ( Amer) > 60 Est GFR (Non-Af Amer) > 60 Random Glucose 162 H Calcium 11.6 H Magnesium Total Bilirubin 1.5 H AST 58 ALT 47 Alkaline Phosphatase 137 H Troponin I Total Protein 7.9 Albumin 3.4 Globulin 4.5 Albumin/Globulin Ratio 0.7 L Blood Type Antibody Screen BBK History Checked Assessment & Plan - Assessment and Plan (Free Text) Assessment: 73 yo male with PMHx of oropharyngeal SCC s/p total larygnectomy with trach but had recurrence. [place] [facility] [place]B and hemoptysis. Found to have increased leukocytosis. CT scan showed bullous emphysema but no infiltrate. Started on IV Vancomycin and Zosyn. Obtain procalcitonin value. Cannot rule out leukocytosis secondary to oropharyngeal SCC. Continue antibiotics in meantime. Pharyngeal mass has increased in size compared to prior studies. Would check urine cultures and urinalysis as well. Carr cultures. Thank you for allowing me to participate in the care of the patient, we will follow with you.
[2018-07-03] MEDS: Piperacillin/Tazobact 3.375 gm 100 ML IVPB SCH ×4 (00:51→22:02)
[2018-07-03] MEDS: Vancomycin 1gm in NS 250ml 1 GM/250 ML BAG IVPB SCH ×2 (05:37→17:30)
[2018-07-03 06:12] LABS: BASO # 0.01 K/mm3 (0.0-2.0); BASO % 0.1 % (0.0-3.0); EOS # 0.1 (0.0-0.7); EOS % 0.5 % (1.5-5.0); GRAN # 15.42 (1.4-6.5); GRAN % 84.2 % (50.0-68.0); HEMOGLOBIN 10.5 g/dL (14.0-18.0); LYMPH # 1.7 (1.2-3.4); LYMPH % 9.5 % (22.0-35.0); MEAN CELL VOLUME 91.9 fl (80.0-105.0); MEAN CORPUSCULAR HEMOGLOBIN 29.4 pg (25.0-35.0); MONO % 5.7 % (1.0-6.0); RBC 3.57 10^6/uL (3.5-6.1); RED CELL DISTRIBUTION WIDTH 14.4 % (11.5-14.5); WHITE BLOOD COUNT 18.3 10^3/ul (4.5-11.0)
[2018-07-03 06:20] LABS: ALB/GLOB RATIO 0.7 (1.1-1.8); ALBUMIN 3.2 g/dL (3.0-4.8); ALT/SGPT 52 U/L (7-56); AST/SGOT 53 U/L (17-59); BLOOD UREA NITROGEN 15 mg/dL (7-21); GFR NON-AFRICAN AMERICAN > 60
[2018-07-03] MEDS: Acetylcysteine 20% Inhal Soln (4ml) IH SCH ×3 (07:48→20:20)
[2018-07-03] MEDS: Levalbuterol 0.63 MG/3 ML Inhal Soln UD IH SCH ×3 (07:49→20:20)
[2018-07-03] MEDS ORDERED: levETIRAcetam 500 mg/5ml UD cups PO SCH (09:02)
--- NOTE | 2018-07-03 09:22 | CP.PCM.PN ---
<Alexey Mahmood - Last Filed: 07/03/18 16:03> Subjective - Date & Time of Evaluation Date of Evaluation: 07/03/18 Time of Evaluation: 07:40 - Subjective Subjective: Alexey Mahmood DO, PGY-1 Hospitalist Progress Note for Dr. Heard Patient was seen and examined at bedside this AM. He reports his cough is improving and he has less secretions from the tracheostomy. He denies fever/chills, CP, SOB, or abdominal pain/nausea/vomiting. Objective - Vital Signs/Intake and Output Vital Signs (last 24 hours): Temp Pulse Resp BP Pulse Ox 98.4 F 94 H 19 118/76 97 07/03/18 06:00 07/03/18 07:50 07/03/18 06:00 07/03/18 06:00 07/03/18 06:00 Intake and Output: 07/03/18 07/03/18 06:59 18:59 Intake Total 842 Output Total 600 Balance 242 - Medications Medications: Current Medications Acetylcysteine (Acetylcysteine 20%) 4 ml IH TID [facility] Last Admin: 07/03/18 07:48 Dose: 4 ml Albuterol/Ipratropium (Duoneb 3 Mg/0.5 Mg (3 Ml) Ud) 3 ml IH TIDRESP PRN PRN Reason: Shortness of Breath Sodium Chloride (Sodium Chloride 0.9%) 1,000 mls @ 125 mls/hr IV .Q8H [facility] Last Admin: 07/02/18 18:10 Dose: 125 mls/hr Vancomycin HCl (Vancomycin 1gm) 1 gm in 250 mls @ 167 mls/hr IVPB Q12H [facility]; Protocol Last Admin: 07/03/18 05:37 Dose: 167 mls/hr Piperacillin Sod/Tazobactam Sod (Zosyn 3.375 In Ns 100ml) 100 mls @ 25 mls/hr IVPB Q8 [facility]; Protocol Last Admin: 07/03/18 05:37 Dose: 25 mls/hr Levalbuterol HCl (Xopenex) 0.63 mg IH TIDRESP [facility] Last Admin: 07/03/18 07:49 Dose: 0.63 mg Levetiracetam (Keppra) 500 mg PO BID [facility] Lorazepam (Ativan) 1 mg IVP Q15M PRN; Protocol PRN Reason: Seizure activity Metoclopramide HCl (Reglan) 5 mg PO DAILY PRN PRN Reason: Constipation Pantoprazole Sodium (Protonix Inj) 40 mg IVP DAILY [facility] Last Admin: 07/02/18 10:50 Dose: 40 mg Phenytoin (Dilantin) 100 mg PO TID [facility] Last Admin: 07/02/18 18:16 Dose: 100 mg - Labs Labs: 07/03/18 05:50 07/03/18 05:50 - Constitutional Appears: Non-toxic, No Acute Distress - Head Exam Head Exam: ATRAUMATIC, NORMOCEPHALIC - Eye Exam Eye Exam: EOMI, PERRL - ENT Exam ENT Exam: Mucous Membranes Dry - Neck Exam Neck Exam: Full ROM, Normal Inspection - Respiratory Exam Respiratory Exam: Decreased Breath Sounds (slight decrease in breath sounds on the right improved from yesterday). absent: Accessory Muscle Use, Rales, Rhonchi, Wheezes - Cardiovascular Exam Cardiovascular Exam: REGULAR RHYTHM, RRR, +S1, +S2. absent: Gallop, Rubs, Murmur Assessment and Plan - Assessment and Plan (Free Text) Assessment: 73 yo M with PMH of oropharyngeal CA (s/p laryngectomy and tracheostomy), COPD, seizure disorder, and arthritis admitted for worsening SOB, secretions, and hemoptysis. In ED, CXR showed possible mucous plug in right mainstem bronchus but no white-out. Head, neck, and chest CT identified enlarging mass around tra cheostomy site and mucous in R mainstem bronchus possibly concerning for plug. Plan: 1. Worsening Secretions/Hemoptysis Likely 2/2 worsening tumor burden vs tracheostomy closure CT chest with mucous in R mainstem bronchus with many emphysematous blebs Case was discussed with Dr. Gayle, who is consult No plan for bronchoscopy at this time as he has a high likelihood of developing recurrent mucous plugs even if he is cleared VQ scan was performed at admission with low likelihood of PE Continue xopenex Continue chest PT, pulmonary toilet, suctioning Continue tube feeds with aspiration pxns Treating empirically with vanc/zosyn for possible infiltrate F/u procal 2. COPD Continue management of secretions as above Continue xopenex CT chest with many emphysematous blebs 3. Hypercalcemia Likely 2/2 underlying malignancy Single dose of lasix with IVF given yesterday Consider additional lasix as needed and continue to monitor Ca level Replete other electrolytes as needed 4. Hx of oropharyngeal SCC Likely 2/2 heavy smoking hx Has hx of laryngectomy and tracheostomy Per family, plan is for palliative radiation at this time Palliative care, Dr. Goldberg, and Dr. Ibrahima galdamez, recs appreciated 5. Hx of seizure disorder Continue keppra and dilantin GI/DVT PPX: protonix, SCD Full Code now but palliative consulted Monitor on med/surg Case and plan reviewed and discussed with my attending Dr. Orquidea Mahmood, DO IM Resident PGY-1 Pager: [phone] <Ede Heard - Last Filed: 07/04/18 17:37> Objective - Vital Signs/Intake and Output Vital Signs (last 24 hours): Temp Pulse Resp BP Pulse Ox 98.4 F 90 20 131/71 99 07/04/18 17:05 07/04/18 17:05 07/04/18 17:05 07/04/18 17:05 07/04/18 17:05 Intake and Output: 07/04/18 07/04/18 06:59 18:59 Intake Total 3780 Output Total 850 Balance 2930 - Medications Medications: Current Medications Acetylcysteine (Acetylcysteine 20%) 4 ml IH TID [facility] Last Admin: 07/04/18 13:31 Dose: 4 ml Albuterol/Ipratropium (Duoneb 3 Mg/0.5 Mg (3 Ml) Ud) 3 ml [facility] TIDRESP PRN PRN Reason: Shortness of Breath Vancomycin HCl (Vancomycin 1gm) 1 gm in 250 mls @ 167 mls/hr IVPB Q12H [facility]; Protocol Last Admin: 07/04/18 06:06 Dose: 167 mls/hr Piperacillin Sod/Tazobactam Sod (Zosyn 3.375 In Ns 100ml) 100 mls @ 25 mls/hr IVPB Q8 [facility]; Protocol Last Admin: 07/04/18 14:14 Dose: 25 mls/hr Levalbuterol HCl (Xopenex) 0.63 mg IH TIDRESP [facility] Last Admin: 07/04/18 13:33 Dose: 0.63 mg Levetiracetam (Keppra) 500 mg PO BID [facility] Last Admin: 07/04/18 17:24 Dose: 500 mg Lorazepam (Ativan) 1 mg IVP Q15M [facility]; Protocol PRN Reason: Seizure activity Metoclopramide HCl (Reglan) 5 mg PO DAILY PRN PRN Reason: Constipation Pantoprazole Sodium (Protonix Inj) 40 mg IVP DAILY [facility] Last Admin: 07/04/18 10:28 Dose: 40 mg Phenytoin (Dilantin) 100 mg PO TID [facility] Last Admin: 07/04/18 17:23 Dose: 100 mg - Labs Labs: 07/04/18 05:30 07/04/18 05:30 Attending/Attestation - Attestation I have personally seen and examined this patient.: Yes I have fully participated in the care of the patient.: Yes I have reviewed all pertinent clinical information, including history, physical exam and plan: Yes Notes (Text): 73 yo M with PMH of oropharyngeal CA (s/p laryngectomy and tracheostomy), COPD, seizure disorder, and arthritis admitted for worsening SOB, secretions, and hemoptysis. In ED, CXR showed possible mucous plug in right mainstem bronchus but no white-out. Head, neck, and chest CT identified enlarging mass around tracheostomy site and mucous in R mainstem bronchus possibly concerning for plug. Plan: 1. Worsening Secretions/Hemoptysis/ worsening and recurrent oropharyngeal cancer Likely 2/2 worsening tumor burden and tracheostomy closure CT chest with mucous in R mainstem bronchus with many emphysematous blebs No plan for bronchoscopy at this time as he has a high likelihood of developing recurrent mucous plugs even if he is cleared 2. COPD Continue management of secretions Continue xopenex 3. Hypercalcemia Likely 2/2 underlying malignancy 4. Hx of oropharyngeal SCC Likely 2/2 heavy smoking hx Has hx of laryngectomy and tracheostomy Per family, plan is for palliative radiation at this time Palliative care, Dr. Goldberg, and Dr. Alexandra following, recs appreciated 5. Hx of seizure disorder FULL CODE Palliative consult
[2018-07-03] MEDS: Phenytoin 125 mg/5 ml Oral Susp (237 ml) PO SCH (10:32)
--- NOTE | 2018-07-03 12:06 | CP.PCM.CON ---
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 He was treated by Dr Ede Cleveland and Dr Stevens (radiation oncology). Unfortunately, he developed a local recurrence and underwent a total laryngectomy. We saw him in consultation originally in May 2018. At that time, we had spoke about reirradiation with systemic therapy. A CT/PET scan on June 14, 2018 revealed hypermetabolic uptake in the laryngeal region as well as two small foci of soft tissue lesions in the right SCV region with a SUV of 2.65 and 2.7 respectively. We had spoke about radiation therapy with him locally which he was interested in. He had not started on treatment because he had not made an appointment with his medical oncologist who was also away for the past couple of weeks. His medical oncologist appointment was next Sunday. Now, he is admitted to [facility] with increasing secretions with mild blood tinged sputum as well as shortness of breath. A CT of the neck and chest on July 01, 2018 revealed significant worsening of the soft tissue disease measuring now 10.3 x 6.8 x 5.0cm. There was complete occlusion of the airway. There was no lymphadenopathy. The lung shows bullous emphysema On July 02, 2018, he had a CXR which showed a new infiltrate in the lung. We were asked to see the patient again today about radiation. Review of Systems - Constitutional Constitutional: Fatigue - Respiratory Respiratory: Cough, Dyspnea, Hemoptysis Past Patient History - Infectious Disease Hx of Infectious Diseases: None - Past Medical History & Family History Past Medical History?: Yes - Past Social History Smoking Status: Former Smoker Alcohol: None Home Situation {Lives}: With Family - CARDIAC Hx Hypertension: Yes - PULMONARY Hx Chronic Obstructive Pulmonary Disease (COPD): Yes Other/Comment: Laryngeal CA s/p laryngectomy and tracheostomy - NEUROLOGICAL Hx Neurological Disorder: Yes Hx Seizures: Yes (Well controlled with medication) - HEENT Hx HEENT Problems: Yes Other/Comment: blurry vision mild - RENAL Hx Chronic Kidney Disease: No - ENDOCRINE/METABOLIC Hx Diabetes Mellitus Type 2: Yes (DIET CONTROLLED) - HEMATOLOGICAL/ONCOLOGICAL Hx Cancer: Yes (Throat cancer) - INTEGUMENTARY Hx Dermatological Problems: No Other/Comment: Dry skin scattered throughout body - MUSCULOSKELETAL/RHEUMATOLOGICAL Hx Falls: Yes - GASTROINTESTINAL Hx Gastrointestinal Disorders: Yes (G tube) - GENITOURINARY/GYNECOLOGICAL Hx Genitourinary Disorders: No - PSYCHIATRIC Hx Psychophysiologic Disorder: No Hx Substance Use: No - SURGICAL HISTORY Other/Comment: Permanent tracheostomy, Neck surgery to remove Ca - ANESTHESIA Hx Anesthesia Reactions: No Hx Malignant Hyperthermia: No Meds Allergies/Adverse Reactions: Allergies Allergy/AdvReac Type Severity Reaction Status Date / Time No Known Allergies Allergy Verified 07/02/18 21:04 - Medications Medications: Current Medications Acetylcysteine (Acetylcysteine 20%) 4 ml IH TID [facility]AVEEN Last Admin: 07/03/18 07:48 Dose: 4 ml Albuterol/Ipratropium (Duoneb 3 Mg/0.5 Mg (3 Ml) Ud) 3 ml IH TIDRESP PRN PRN Reason: Shortness of Breath Sodium Chloride (Sodium Chloride 0.9%) 1,000 mls @ 125 mls/hr IV .Q8H [facility] Last Admin: 07/02/18 18:10 Dose: 125 mls/hr Vancomycin HCl (Vancomycin 1gm) 1 gm in 250 mls @ 167 mls/hr IVPB Q12H [facility]; Protocol Last Admin: 07/03/18 05:37 Dose: 167 mls/hr Piperacillin Sod/Tazobactam Sod (Zosyn 3.375 In Ns 100ml) 100 mls @ 25 mls/hr IVPB Q8 [facility]AVEEN; Protocol Last Admin: 07/03/18 05:37 Dose: 25 mls/hr Levalbuterol HCl (Xopenex) 0.63 mg IH TIDRESP [facility] Last Admin: 07/03/18 07:49 Dose: 0.63 mg Levetiracetam (Keppra) 500 mg PO BID [facility]EN Lorazepam (Ativan) 1 mg IVP Q15M PRN; Protocol PRN Reason: Seizure activity Metoclopramide HCl (Reglan) 5 mg PO DAILY PRN PRN Reason: Constipation Pantoprazole Sodium (Protonix Inj) 40 mg IVP DAILY [facility] Last Admin: 07/03/18 10:21 Dose: 40 mg Phenytoin (Dilantin) 100 mg PO TID [facility] Physical Exam - Constitutional Appears: Cachectic - Head Exam Head Exam: NORMAL INSPECTION - Respiratory Exam Respiratory Exam: Clear to Auscultation Bilateral - Cardiovascular Exam Cardiovascular Exam: REGULAR RHYTHM - GI/Abdominal Exam GI & Abdominal Exam: Normal Bowel Sounds - Neurological Exam Neurological exam: Oriented x3 Results - Vital Signs Recent Vital Signs: Last Vital Signs Temp 98.4 F 07/03/18 06:00 Pulse 94 H 07/03/18 07:50 Resp 19 07/03/18 06:00 BP 118/76 07/03/18 06:00 Pulse Ox 97 07/03/18 06:00 - Labs Result Diagrams: 07/03/18 05:50 07/03/18 05:50 Labs: Laboratory Results - last 24 hr 07/02/18 07/03/18 07/03/18 11:50 05:50 05:50 WBC 18.3 H RBC 3.57 Hgb 10.5 L Hct 32.8 L MCV 91.9 MCH 29.4 MCHC 32.0 RDW 14.4 Plt Count 473 H MPV 11.0 Gran % 84.2 H Lymph % (Auto) 9.5 L [place] % (Auto) 5.7 Eos % (Auto) 0.5 L Baso % (Auto) 0.1 Gran # 15.42 H Lymph # (Auto) 1.7 [place] # (Auto) 1.0 H Eos # (Auto) 0.1 Baso # (Auto) 0.01 Sodium 141 142 Potassium 4.1 3.6 Chloride 103 104 Carbon Dioxide 33 31 Anion Gap 9 L 11 BUN 16 15 Creatinine 0.6 L 0.6 L Est GFR ( Amer) > 60 > 60 Est GFR (Non-Af Amer) > 60 > 60 Random Glucose 162 H 139 H Calcium 11.6 H 11.0 H Phosphorus 3.5 Magnesium 2.0 Total Bilirubin 1.5 H 1.5 H AST 58 53 ALT 47 52 Alkaline Phosphatase 137 H 137 H Total Protein 7.9 7.6 Albumin 3.4 3.2 Globulin 4.5 4.4 Albumin/Globulin Ratio 0.7 L 0.7 L Assessment & Plan - Assessment and Plan (Free Text) Assessment: Mr Rothman is a 73 year old male with a recurrence glottic cancer. We spoke about reirradiation with him versus supportive care. The patient is interested in reirradiation rather than supportive care. He is fully aware that we cannot cure his cancer, but would like to proceed with some type of treatment. Given the increasing growth of the lesion, we will resimulate him, and start his treatment as soon as feasibly possible given his clinical situation.. When we had last spoken with Dr Cleveland about [place]hen[place], he spoke about cetuximab with the radiation. Unfortunately, while the patient is an inpatient, cetuximab cannot be administered.
--- NOTE | 2018-07-03 13:27 | CP.PCM.PN ---
Subjective - Date & Time of Evaluation Date of Evaluation: 07/03/18 Time of Evaluation: 13:25 - Subjective Subjective: Hematology/Oncology Progress Note (Dr. Alexandra's Service) Patient seen and assessed at bedside. No acute events noted overnight. Patient reports that his sputum production and SOB have improved. Patient denies any further complaints at this time including fevers, chills, headache, chest pain, abdominal pain, N/V/D/C, changes in urine output, skin changes or any numbness/tingling of any extremity. Objective - Vital Signs/Intake and Output Vital Signs (last 24 hours): Temp Pulse Resp BP Pulse Ox 98.4 F 94 H 19 118/76 97 07/03/18 06:00 07/03/18 07:50 07/03/18 06:00 07/03/18 06:00 07/03/18 06:00 Intake and Output: 07/03/18 07/03/18 06:59 18:59 Intake Total 842 Output Total 600 Balance 242 - Medications Medications: Current Medications Acetylcysteine (Acetylcysteine 20%) 4 ml IH TID [facility]AVEEN Last Admin: 07/03/18 07:48 Dose: 4 ml Albuterol/Ipratropium (Duoneb 3 Mg/0.5 Mg (3 Ml) Ud) 3 ml IH TIDRESP PRN PRN Reason: Shortness of Breath Sodium Chloride (Sodium Chloride 0.9%) 1,000 mls @ 125 mls/hr IV .Q8H [facility] Last Admin: 07/02/18 18:10 Dose: 125 mls/hr Vancomycin HCl (Vancomycin 1gm) 1 gm in 250 mls @ 167 mls/hr IVPB Q12H [facility]; Protocol Last Admin: 07/03/18 05:37 Dose: 167 mls/hr Piperacillin Sod/Tazobactam Sod (Zosyn 3.375 In Ns 100ml) 100 mls @ 25 mls/hr IVPB Q8 [facility]AVEEN; Protocol Last Admin: 07/03/18 05:37 Dose: 25 mls/hr Levalbuterol HCl (Xopenex) 0.63 mg IH TIDRESP [facility] Last Admin: 07/03/18 07:49 Dose: 0.63 mg Levetiracetam (Keppra) 500 mg PO BID [facility]EN Lorazepam (Ativan) 1 mg IVP Q15M PRN; Protocol PRN Reason: Seizure activity Metoclopramide HCl (Reglan) 5 mg PO DAILY PRN PRN Reason: Constipation Pantoprazole Sodium (Protonix Inj) 40 mg IVP DAILY [facility] Last Admin: 07/03/18 10:21 Dose: 40 mg Phenytoin (Dilantin) 100 mg PO TID [facility] - Labs Labs: 07/03/18 05:50 07/03/18 05:50 - Constitutional Appears: Non-toxic, No Acute Distress - Head Exam Head Exam: ATRAUMATIC, NORMOCEPHALIC - Eye Exam Eye Exam: EOMI, Normal appearance - ENT Exam ENT Exam: Mucous Membranes Moist Additional comments: stoma patent and without signs of clinical infection of the surrounding soft tissue - Neck Exam Neck Exam: Full ROM - Respiratory Exam Respiratory Exam: Clear to Ausculation Bilateral, NORMAL BREATHING PATTERN. absent: Accessory Muscle Use, Rales, Rhonchi, Wheezes, Respiratory Distress - Cardiovascular Exam Cardiovascular Exam: RRR, +S1, +S2 - GI/Abdominal Exam GI & Abdominal Exam: Soft, Normal Bowel Sounds. absent: Tenderness Additional comments: g-tube in place without signs of clinical infection of the surrounding soft tissue - Extremities Exam Extremities Exam: Full ROM, Normal Capillary Refill, Normal Inspection. 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 Of note, CT soft tissue of neck showed progression of previously recorded laryngeal tumor from 2.5x3.1x6.4cm to now 5.0x6.8x10.3cm. PET/CT reviewed and showed metastatic adenopathy. Patient was also found to bullous emphysema with questionable right sided mucus plug. Radiation Oncology was consulted to discuss possible palliative reirradiation. Plan: -PET/CT reviewed and showed metastatic adenopathy -CT soft tissue H/N showed progression of tumor with measurements as stated above -Radiation Oncology consulted, all recommendations appreciated; Patient expressed wish to have palliative reirradiation as opposed to supportive care alone -Palliative consultation noted, all recommendations appreciated -Continue antibiotics as per ID, all recommendations appreciated -Continue with trach care and management as ordered -Continue tube feeds as ordered -Further recommendations as per Dr. Alexandra Patient seen and case discussed with attending, Dr. Alexandra. Ferdinand Hatfield PGY2
--- NOTE | 2018-07-03 14:02 | CP.PCM.CON ---
History of Present Illness - History of Present Illness History of Present Illness: 73 y/o male with recurrent laryngeal carcinoma/stomal recurrence. Pt is well known to me for a history of laryngeal carcinoma initially treated with CTX/XRT. He subsequently underwent a total laryngectomy with bilateral neck dissections. He had been doing well and now there is note of recurrence. He has been read[place] [facility] with increased bloody secretions and airway compromise. Pt has been evaluated by radiation oncology for possibility of reirradiation. Pt seen and examined with agreement. He has had increased difficulty breathing through the stoma with increased secretions. Review of Systems - Constitutional Constitutional: As Per HPI - EENT Eyes: As Per HPI Ears: As Per HPI Nose/Mouth/Throat: As Per HPI - Cardiovascular Cardiovascular: As Per HPI - Respiratory Respiratory: As Per HPI - Gastrointestinal Gastrointestinal: As Per HPI - Reproductive: Male Reproductive:Male: As Per HPI - Musculoskeletal Musculoskeletal: As Per HPI - Integumentary Integumentary: As Per HPI - Neurological Neurological: As Per HPI - Psychiatric Psychiatric: As Per HPI - Endocrine Endocrine: As Per HPI - Hematologic/Lymphatic Hematologic: As Per HPI Past Patient History - Infectious Disease Hx of Infectious Diseases: None - Past Medical History & Family History Past Medical History?: Yes - Past Social History Smoking Status: Former Smoker Alcohol: None Home Situation {Lives}: With Family - CARDIAC Hx Hypertension: Yes - PULMONARY Hx Chronic Obstructive Pulmonary Disease (COPD): Yes Other/Comment: Laryngeal CA s/p laryngectomy and tracheostomy - NEUROLOGICAL Hx Neurological Disorder: Yes Hx Seizures: Yes (Well controlled with medication) - HEENT Hx HEENT Problems: Yes Other/Comment: blurry vision mild - RENAL Hx Chronic Kidney Disease: No - ENDOCRINE/METABOLIC Hx Diabetes Mellitus Type 2: Yes (DIET CONTROLLED) - HEMATOLOGICAL/ONCOLOGICAL Hx Cancer: Yes (Throat cancer) - INTEGUMENTARY Hx Dermatological Problems: No Other/Comment: Dry skin scattered throughout body - MUSCULOSKELETAL/RHEUMATOLOGICAL Hx Falls: Yes - GASTROINTESTINAL Hx Gastrointestinal Disorders: Yes (G tube) - GENITOURINARY/GYNECOLOGICAL Hx Genitourinary Disorders: No - PSYCHIATRIC Hx Psychophysiologic Disorder: No Hx Substance Use: No - SURGICAL HISTORY Other/Comment: Permanent tracheostomy, Neck surgery to remove Ca - ANESTHESIA Hx Anesthesia Reactions: No Hx Malignant Hyperthermia: No Meds Allergies/Adverse Reactions: Allergies Allergy/AdvReac Type Severity Reaction Status Date / Time No Known Allergies Allergy Verified 10/23/18 21:04 - Medications Medications: Current Medications Acetylcysteine (Acetylcysteine 20%) 4 ml IH TID NAVEEN Last Admin: 07/03/18 13:24 Dose: 4 ml Albuterol/Ipratropium (Duoneb 3 Mg/0.5 Mg (3 Ml) Ud) 3 ml IH TIDRESP PRN PRN Reason: Shortness of Breath Sodium Chloride (Sodium Chloride 0.9%) 1,000 mls @ 125 mls/hr IV .Q8H [facility] Last Admin: 07/02/18 18:10 Dose: 125 mls/hr Vancomycin HCl (Vancomycin 1gm) 1 gm in 250 mls @ 167 mls/hr IVPB Q12H [facility]; Protocol Last Admin: 07/03/18 05:37 Dose: 167 mls/hr Piperacillin Sod/Tazobactam Sod (Zosyn 3.375 In Ns 100ml) 100 mls @ 25 mls/hr IVPB Q8 [facility]AVEEN; Protocol Last Admin: 07/03/18 05:37 Dose: 25 mls/hr Levalbuterol HCl (Xopenex) 0.63 mg IH TIDRESP [facility] Last Admin: 07/03/18 13:24 Dose: 0.63 mg Levetiracetam (Keppra) 500 mg PO BID [facility]AVEEN Lorazepam (Ativan) 1 mg IVP Q15M PRN; Protocol PRN Reason: Seizure activity Metoclopramide HCl (Reglan) 5 mg PO DAILY PRN PRN Reason: Constipation Pantoprazole Sodium (Protonix Inj) 40 mg IVP DAILY [facility] Last Admin: 07/03/18 10:21 Dose: 40 mg Phenytoin (Dilantin) 100 mg PO TID [facility] Physical Exam - Constitutional Appears: Cachectic, Chronically Ill - Head Exam Head Exam: ATRAUMATIC, NORMAL INSPECTION, NORMOCEPHALIC - Eye Exam Eye Exam: EOMI, Normal appearance - ENT Exam Additional comments: Ear: canals patent Nose: dry mucosa Throat white plaque on tongue Neck: inc size of right neck adeonpathy, tumor now showing stomal recurrence with airway narrowing, tracheotomy tube non fenestrated non cuffed shiley number 6 size placed into stoma without difficulty, thick mucus suctioned - Neck Exam Additional comments: Neck: inc size of right neck adeonpathy, tumor now showing stomal recurrence with airway narrowing, tracheotomy tube non fenestrated non cuffed shiley number 6 size placed into stoma without difficulty, thick mucus suctioned Results - Vital Signs Recent Vital Signs: Last Vital Signs Temp 98.4 F 07/03/18 06:00 Pulse 94 H 07/03/18 07:50 Resp 19 07/03/18 06:00 BP 118/76 07/03/18 06:00 Pulse Ox 97 07/03/18 06:00 - Labs Result Diagrams: 07/03/18 05:50 07/03/18 05:50 Labs: Laboratory Results - last 24 hr 07/03/18 07/03/18 05:50 05:50 WBC 18.3 H RBC 3.57 Hgb 10.5 L Hct 32.8 L MCV 91.9 MCH 29.4 MCHC 32.0 RDW 14.4 Plt Count 473 H MPV 11.0 Gran % 84.2 H Lymph % (Auto) 9.5 L [place] % (Auto) 5.7 Eos % (Auto) 0.5 L Baso % (Auto) 0.1 Gran # 15.42 H Lymph # (Auto) 1.7 [place] # (Auto) 1.0 H Eos # (Auto) 0.1 Baso # (Auto) 0.01 Sodium 142 Potassium 3.6 Chloride 104 Carbon Dioxide 31 Anion Gap 11 BUN 15 Creatinine 0.6 L Est GFR ( Amer) > 60 Est GFR (Non-Af Amer) > 60 Random Glucose 139 H Calcium 11.0 H Phosphorus 3.5 Magnesium 2.0 Total Bilirubin 1.5 H AST 53 ALT 52 Alkaline Phosphatase 137 H Total Protein 7.6 Albumin 3.2 Globulin 4.4 Albumin/Globulin Ratio 0.7 L Assessment & Plan (1) Hemoptysis Status: Acute (2) Laryngeal cancer Status: Acute Priority: High (3) Oropharyngeal mass Status: Acute Priority: High (4) Aphonia Status: Acute (5) Anemia Status: Chronic Priority: Medium (6) Dysphagia Status: Chronic Priority: Medium (7) Seizures Status: Chronic Priority: Medium (8) Dyspnea and respiratory abnormalities Status: Acute - Assessment and Plan (Free Text) Plan: tracheotomy tube non fenestrated non cuffed shiley number 6 size placed into stoma without difficulty, thick mucus suctioned Recommend respiratory therapy eval with suctioning of secretions and humidified tracheotomy collar/neb tx Recommend Hospice evaluation and DNR/DNI discussion with the patient per social work eval. your radiation oncology treatment. your medical management. Antibiotic treatment for possible post obstructive pneumonia - Date & Time Date: 07/03/18 Time: 14:02
[2018-07-03] MEDS: Phenytoin 100 mg/4 ml Oral Susp UD PO SCH ×2 (14:04→17:28)
--- NOTE | 2018-07-03 14:28 | CP.PCM.CON ---
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 Recent PET done 06/14/18 showed a large elliptical mass in mid and right parsagittal aspect extending from below oropahrynx to the level of the tracheostomy, SUV 16.3. The airway is obliterated over these level though patent at level of tracheostomy. There were 2 foci soft tissue density within the inferior to the supraclavicular soft tissues abutting the right anterior lateral chest wall, SUV 2.[address] of neck/chest : progression of of laryngeal tumor to 5.0X 8X10 cm, complete occlusion of the airway, bullous emphysema Nuclear Scan: No PE EKG: SR with PAC's, inferior infarct age undetermined Labs 07/01/18: Wbc 18.5, Hgb 1.2, Plt 684, Na 140, K 4.0, Bun 18, Menagerie Superintendent 0.5, Gl ucose 144, AST 51, ALT 49, Alk Phos 146, Albumin 3.3> Blood cultures negative. PMHx: COPD, SC laryngeal cancer, DM, seizure disorder, anxiety. PSHX: laryngectomy, tracheostomy, PEG Social History:Former heavy smoker, no alcohol or drug use. Lives with family. Advance Care Planning: The patient does not have an Advanced Directive. Review of Systems: As per HPI, 12 point review otherwise negative. Past Patient History - Infectious Disease Hx of Infectious Diseases: None - Past Medical History & Family History Past Medical History?: Yes - Past Social History Smoking Status: Former Smoker Alcohol: None Home Situation {Lives}: With Family - CARDIAC Hx Hypertension: Yes - PULMONARY Hx Chronic Obstructive Pulmonary Disease (COPD): Yes Other/Comment: Laryngeal CA s/p laryngectomy and tracheostomy - NEUROLOGICAL Hx Neurological Disorder: Yes Hx Seizures: Yes (Well controlled with medication) - HEENT Hx HEENT Problems: Yes Other/Comment: blurry vision mild - RENAL Hx Chronic Kidney Disease: No - ENDOCRINE/METABOLIC Hx Diabetes Mellitus Type 2: Yes (DIET CONTROLLED) - HEMATOLOGICAL/ONCOLOGICAL Hx Cancer: Yes (Throat cancer) - INTEGUMENTARY Hx Dermatological Problems: No Other/Comment: Dry skin scattered throughout body - MUSCULOSKELETAL/RHEUMATOLOGICAL Hx Falls: Yes - GASTROINTESTINAL Hx Gastrointestinal Disorders: Yes (G tube) - GENITOURINARY/GYNECOLOGICAL Hx Genitourinary Disorders: No - PSYCHIATRIC Hx Psychophysiologic Disorder: No Hx Substance Use: No - SURGICAL HISTORY Other/Comment: Permanent tracheostomy, Neck surgery to remove Ca - ANESTHESIA Hx Anesthesia Reactions: No Hx Malignant Hyperthermia: No Meds Allergies/Adverse Reactions: Allergies Allergy/AdvReac Type Severity Reaction Status Date / Time No Known Allergies Allergy Verified 07/02/18 21:04 - Medications Medications: Current Medications Acetylcysteine (Acetylcysteine 20%) 4 ml IH TID NAVEEN Last Admin: 07/03/18 13:24 Dose: 4 ml Albuterol/Ipratropium (Duoneb 3 Mg/0.5 Mg (3 Ml) Ud) 3 ml IH TIDRESP PRN PRN Reason: Shortness of Breath Sodium Chloride (Sodium Chloride 0.9%) 1,000 mls @ 125 mls/hr IV .Q8H [facility] Last Admin: 07/02/18 18:10 Dose: 125 mls/hr Vancomycin HCl (Vancomycin 1gm) 1 gm in 250 mls @ 167 mls/hr IVPB Q12H [facility]; Protocol Last Admin: 07/03/18 05:37 Dose: 167 mls/hr Piperacillin Sod/Tazobactam Sod (Zosyn 3.375 In Ns 100ml) 100 mls @ 25 mls/hr IVPB Q8 [facility]AVEEN; Protocol Last Admin: 07/03/18 14:03 Dose: 25 mls/hr Levalbuterol HCl (Xopenex) 0.63 mg IH TIDRESP [facility] Last Admin: 07/03/18 13:24 Dose: 0.63 mg Levetiracetam (Keppra) 500 mg PO BID [facility] Lorazepam (Ativan) 1 mg IVP Q15M PRN; Protocol PRN Reason: Seizure activity Metoclopramide HCl (Reglan) 5 mg PO DAILY PRN PRN Reason: Constipation Pantoprazole Sodium (Protonix Inj) 40 mg IVP DAILY [facility] Last Admin: 07/03/18 10:21 Dose: 40 mg Phenytoin (Dilantin) 100 mg PO TID [facility] Last Admin: 07/03/18 14:04 Dose: 100 mg Physical Exam - Constitutional Appears: Cachectic, Chronically Ill - Eye Exam Eye Exam: Normal appearance, PERRL - ENT Exam ENT Exam: Mucous Membranes Moist - Respiratory Exam Respiratory Exam: Decreased Breath Sounds, Rhonchi - Cardiovascular Exam Cardiovascular Exam: REGULAR RHYTHM, +S1, +S2 - GI/Abdominal Exam GI & Abdominal Exam: Normal Bowel Sounds, Soft Additional comments: PEG patent - Extremities Exam Extremities exam: Positive for: pedal edema, pedal pulses present - Neurological Exam Neurological exam: Alert Additional comments: oriented to place/self - Skin Skin Exam: Dry, Pallor, Warm - Additional Findings Additional findings: Palliative performance scale rating 30% Results - Vital Signs Recent Vital Signs: Last Vital Signs Temp 98.4 F 07/03/18 06:00 Pulse 94 H 07/03/18 07:50 Resp 19 07/03/18 06:00 BP 118/76 07/03/18 06:00 Pulse Ox 97 07/03/18 06:00 - Labs Result Diagrams: 07/03/18 15:30 07/03/18 15:30 Labs: Laboratory Results - last 24 hr 07/03/18 07/03/18 05:50 05:50 WBC 18.3 H RBC 3.57 Hgb 10.5 L Hct 32.8 L MCV 91.9 MCH 29.4 MCHC 32.0 RDW 14.4 Plt Count 473 H MPV 11.0 Gran % 84.2 H Lymph % (Auto) 9.5 L [place] % (Auto) 5.7 Eos % (Auto) 0.5 L Baso % (Auto) 0.1 Gran # 15.42 H Lymph # (Auto) 1.7 [place] # (Auto) 1.0 H Eos # (Auto) 0.1 Baso # (Auto) 0.01 Sodium 142 Potassium 3.6 Chloride 104 Carbon Dioxide 31 Anion Gap 11 BUN 15 Creatinine 0.6 L Est GFR ( Amer) > 60 Est GFR (Non-Af Amer) > 60 Random Glucose 139 H Calcium 11.0 H Phosphorus 3.5 Magnesium 2.0 Total Bilirubin 1.5 H AST 53 ALT 52 Alkaline Phosphatase 137 H Total Protein 7.6 Albumin 3.2 Globulin 4.4 Albumin/Globulin Ratio 0.7 L Assessment & Plan - Assessment and Plan (Free Text) Assessment: 73 year old male with history of recurring squamous cell laryngeal cancer,s/p tracheastomy/ radiation therapy, COPD, emphysema,seizures who is admitted with new left lobe infiltrate, leukocytosis, shortness of breath, weakness. The patient is alert. Dr Tapia was in to replace tracheastomy tube ( #6 non fenestrated/ non cuffed Shiley). The patient is mildly dyspneic. He has copious secretions from stoma. He is unable to communicate his wishes regarding resuscitation status. He was seen by Dr Goldberg today and understands that his cancer is incurable. He has agreed to palliative XRT therapy and is scheduled for simulation tomorrow morning. Will continue to follow for palliative support. Will also try to meet with patient's son Haresh in order to discuss advance care planning. Time spent with patient for advance care planning, 15 minutes Plan: Palliative support in establishing goals of care and advance care planning Laryngeal cancer: Dr Goldberg to start XRT, Dr Ba also following, will review recommendations Sespis/ LLL infiltrate: Continue Vancomycin, Zosyn Shortness of breath: Trach care, trach collar, Duonebs, Mucomist, Xopenex Seizures: Continue Dilantin, Keppra. Anxiety: Ativan as needed
[2018-07-03 14:57] LABS: ARTERIAL BLOOD GAS HCO3 24.7 mmol/L (21-28); ARTERIAL BLOOD GAS HEMOGLOBIN 9.6 g/dL (11.7-17.4); ARTERIAL BLOOD GAS O2 CAPACITY 13.3 mL/dl (16-24); ARTERIAL BLOOD GAS O2 CONTENT 13.2 ML/dl (15-23); ARTERIAL BLOOD GAS O2 SAT 99.6 % (95-98); ARTERIAL BLOOD GAS TCO2 25.2 mmol.L (22-28)
[2018-07-03 15:01] LABS: ARTERIAL BLOOD GAS PH 7.77 (7.35-7.45)
[2018-07-03 15:02] LABS: ARTERIAL BLOOD GAS PCO2 17 mm/Hg (35-45)
--- NOTE | 2018-07-03 15:16 | CARD ---
APPROVED REPORT Date of service: 07/03/2018 EKG Measurement Heart [id number] <Conclusion> Limited ECG. Electrical artifact obscures inferior leads. Sinus rhythm with premature atrial complexes LVH by voltage
--- NOTE | 2018-07-03 15:19 | RAD ---
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 PLEURA: No significant pleural effusion identified, no pneumothorax apparent. CARDIOVASCULAR: Normal heart size. Tracheostomy tube noted. No congestive change. OSSEOUS STRUCTURES: No significant abnormalities. VISUALIZED UPPER ABDOMEN: Normal. OTHER FINDINGS: None. IMPRESSION: No active disease.
--- NOTE | 2018-07-03 15:35 | PCM.RRT ---
NEGOTIATOR Nurse Assessment - Situation Date: 07/03/18 Time NEGOTIATOR was called: 14:29 NEGOTIATOR Responder Arrival Time: 14:29 NEGOTIATOR Location:: [address] [place] [address] Room Number: 360-2 NEGOTIATOR Reason for Call: Respiratory Distress NEGOTIATOR Called By: RN - IV IV Inserted during NEGOTIATOR?: No - Respiratory Oxygen Delivery Method: Trach Collar @% Oxygen Flow Rate: 10 Received Nebulizer Treatments:: Yes Was the Patient Ventilated with Bag/Mask 100% O2?: No Secretions Suctioned?: Yes Was the Patient Intubated?: No Was the Patient Placed on a Ventilator?: No - Diagnostic Test Ordered EKG: Yes Chest X-Ray: Yes CT Scan: No - Stat Labs Ordered NEGOTIATOR Stat Labs Ordered: CBC, BMP, ABG CPR started during NEGOTIATOR?: No - Vital Signs Vital Sign: Rapid Response Vital Sign Blood Pressure 129/81 Pulse Rate 95 Temperature 98.1 F Oxygen Saturation 99 - Finger Stick Blood Glucose Finger Stick Blood Glucose: 174 - Time NEGOTIATOR Ended Time NEGOTIATOR Ended: 14:45 - Vital Signs at end of NEGOTIATOR Vital Signs at end of NEGOTIATOR: Rapid Response End Vital Sign Blood Pressure 129/81 Pulse Rate 20 Temperature 98.8 F O2 Sat by Pulse Oximetry 100 - Recommendations Notifications: Attending Physician, Consultations I.Reason for NEGOTIATOR - A) Acute Change in Patient: (Select all that apply): Staff member or family is worried about patient Subjective: Rapid response was called for concern that patient appeared increasingly apneic and lethargic. Upon our arrival, his SpO2 was > 90% and he appeared to be hyperventilating. - Neurological Status (Select all that apply): Alert, Responsive, Oriented, Follows Commands - Respiratory Oxygen Delivery Method: Trach Collar @% Oxygen Flow Rate: 10 - Constitutional Appears: No Acute Distress, Cachectic, Chronically Ill - Head Head Exam: ATRAUMATIC, NORMOCEPHALIC - Respiratory Exam Respiratory Exam: Decreased Breath Sounds (Slight decreased breath sounds on RUL and LLL). absent: Rales, Rhonchi, Wheezes - Cardiovascular Exam Cardiovascular Exam: REGULAR RHYTHM, RRR, +S1, +S2. absent: Gallop, Rubs, Murmur - Neurological Exam Neurological Exam: Alert, Awake, Oriented x3 - Extremities Exam Extremities Exam: Normal Inspection Plan - Assessment of Findings&Treatment Plan 73 yo M with PMH of oropharyngeal CA (s/p laryngectomy and tracheostomy), COPD, seizure disorder, and arthritis with apneic episode concerning for worsening respiratory status. Rapid response was called. Stat ABG, CXR, CBC, CMP were completed. CXR with no acute changes compared to prior CXR. Case was discussed with Dr. Tapia who suggested changing the tracheostomy. Surgery team was paged for this and is aware. Case was then discussed with Dr. Gayle who states that bronchoscopy at this time is not warranted as he will likely recur and there is not definitive evidence of a mucous plug. He suggested continued chest PT, saline washes, pulmonary toilet. ABG showed changes consistent with hyperventilation. Patient later calmed down and is no longer hyperventilating. Will repeat ABG in one hour and f/u with surgery and respiratory.
[2018-07-03 15:37] LABS: BASO # 0.01 K/mm3 (0.0-2.0); BASO % 0.1 % (0.0-3.0); EOS # 0.1 (0.0-0.7); EOS % 0.5 % (1.5-5.0); GRAN # 14.93 (1.4-6.5); GRAN % 85.8 % (50.0-68.0); HEMOGLOBIN 9.9 g/dL (14.0-18.0); LYMPH # 1.5 (1.2-3.4); LYMPH % 8.7 % (22.0-35.0); MEAN CELL VOLUME 91.7 fl (80.0-105.0); MEAN CORPUSCULAR HEMOGLOBIN 29.2 pg (25.0-35.0); MEAN CORPUSCULAR HGB CONC 31.8 g/dl (31.0-37.0); MEAN PLATELET VOLUME 10.6 fl (7.0-11.0); MONO # 0.9 (0.1-0.6); MONO % 4.9 % (1.0-6.0); RBC 3.39 10^6/uL (3.5-6.1); RED CELL DISTRIBUTION WIDTH 14.8 % (11.5-14.5); WHITE BLOOD COUNT 17.4 10^3/ul (4.5-11.0)
--- NOTE | 2018-07-03 15:41 | CP.PCM.PN ---
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 Currently STABLE. Objective - Vital Signs/Intake and Output Vital Signs (last 24 hours): Temp Pulse Resp BP Pulse Ox 98.4 F 94 H 19 118/76 97 07/03/18 06:00 07/03/18 07:50 07/03/18 06:00 07/03/18 06:00 07/03/18 06:00 Intake and Output: 07/03/18 07/03/18 06:59 18:59 Intake Total 842 Output Total 600 Balance 242 - Medications Medications: Current Medications Acetylcysteine (Acetylcysteine 20%) 4 ml IH TID [facility] Last Admin: 07/03/18 13:24 Dose: 4 ml Albuterol/Ipratropium (Duoneb 3 Mg/0.5 Mg (3 Ml) Ud) 3 ml IH TIDRESP PRN PRN Reason: Shortness of Breath Sodium Chloride (Sodium Chloride 0.9%) 1,000 mls @ 125 mls/hr IV .Q8H [facility] Last Admin: 07/02/18 18:10 Dose: 125 mls/hr Vancomycin HCl (Vancomycin 1gm) 1 gm in 250 mls @ 167 mls/hr IVPB Q12H [facility]; Protocol Last Admin: 07/03/18 05:37 Dose: 167 mls/hr Piperacillin Sod/Tazobactam Sod (Zosyn 3.375 In Ns 100ml) 100 mls @ 25 mls/hr IVPB Q8 [facility]; Protocol Last Admin: 07/03/18 14:03 Dose: 25 mls/hr Levalbuterol HCl (Xopenex) 0.63 mg IH TIDRESP [facility] Last Admin: 07/03/18 13:24 Dose: 0.63 mg Levetiracetam (Keppra) 500 mg PO BID [facility] Lorazepam (Ativan) 1 mg IVP Q15M PRN; Protocol PRN Reason: Seizure activity Metoclopramide HCl (Reglan) 5 mg PO DAILY PRN PRN Reason: Constipation Pantoprazole Sodium (Protonix Inj) 40 mg IVP DAILY [facility] Last Admin: 07/03/18 10:21 Dose: 40 mg Phenytoin (Dilantin) 100 mg PO TID [facility] Last Admin: 07/03/18 14:04 Dose: 100 mg - Labs Labs: 07/03/18 05:50 07/03/18 05:50 - Constitutional Appears: Non-toxic, No Acute Distress, Older Than Stated Age, Cachectic, Chronically Ill - Eye Exam Eye Exam: Normal appearance - ENT Exam ENT Exam: Mucous Membranes Moist - Neck Exam Additional comments: + trach - Respiratory Exam Respiratory Exam: Clear to Ausculation Bilateral, NORMAL BREATHING PATTERN - Cardiovascular Exam Cardiovascular Exam: REGULAR RHYTHM, +S1, +S2 - GI/Abdominal Exam GI & Abdominal Exam: Soft, Normal Bowel Sounds - Extremities Exam Extremities Exam: Normal Inspection Assessment and Plan - Assessment and Plan (Free Text) Assessment: Patient is 73yo male with 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, with recurrence, s/p PEG, COPD, Seizure, OA, smoking a/with SOB, hemoptysis Hemopsys SOB Mucus in airway on CT EMphysema Smoking hx Pharyngeal mass Oropharyngeal SCC s/p Laryngectomy, and trach - currently afebrile,BP stable, comfortable in NAD, parynchemal examination on CT demonstrates bullous emphysema, with some minimal mucus in airways with NO lung collapse/atelectasis; NO Definitive infiltrate - would monitor clinically for now, currently afebrile, BP stable, comfortable in NAD, on T collar 40%, sat 98%, RR 12-16, CXR with no collapse or white out - repeat ABG - CXR repeated today demonstrates no definitive evidence of lung collapse/atelectasis - Chest PT - Mucomyst - OOB to chair, mobilization - Duonebs PRN - Brovana, Pulmicort - DVT ppx
--- NOTE | 2018-07-03 15:46 | CP.PCM.PN ---
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 Subsequently in 2016 patient was found to have recurrence of throat CA. He presented most recently in 05/2018 w/ large soft tissue mass in oropharyngeal region; during this visit patient received PEG tube placement. He was to follow up with heme/onc Dr. Cleveland however reported he was unable to make appt due to poor transportation. Patient reports he currently not undergoing radiation/chemotherapy at this time. Remainder of PMHx is significant for COPD, Seizure, and arthritis. He presented to [facility] ED 07/02 w/ complaints of SOB, Hemoptysis, worsening secretions over the past month. Patient reports hemoptysis as light pink tinged mucopurlent sputum does not report overtly bloody or clotted sputum. He says his SOB feels as if he is not getting enough air through his tracheostomy. Patient reported he sees ENT Dr. Tapia for trach management and Dr. Ede Cleveland for Heme/Onc. ID called for evaluation of potential HCAP. CT Chest showing bullous emphysema but no infiltrate. Cannot rule out early infiltrate. Patient still with leukocytosis. On trach collar with supplemental O2. Patient is awake, alert, and answer questions appropriately. Objective - Vital Signs/Intake and Output Vital Signs (last 24 hours): Temp Pulse Resp BP Pulse Ox 98.4 F 94 H 19 118/76 97 07/03/18 06:00 07/03/18 07:50 07/03/18 06:00 07/03/18 06:00 07/03/18 06:00 Intake and Output: 07/03/18 07/03/18 06:59 18:59 Intake Total 842 Output Total 600 Balance 242 - Medications Medications: Current Medications Acetylcysteine (Acetylcysteine 20%) 4 ml IH TID NAVEEN Last Admin: 07/03/18 13:24 Dose: 4 ml Albuterol/Ipratropium (Duoneb 3 Mg/0.5 Mg (3 Ml) Ud) 3 ml IH TIDRESP PRN PRN Reason: Shortness of Breath Sodium Chloride (Sodium Chloride 0.9%) 1,000 mls @ 125 mls/hr IV .Q8H [facility] Last Admin: 07/02/18 18:10 Dose: 125 mls/hr Vancomycin HCl (Vancomycin 1gm) 1 gm in 250 mls @ 167 mls/hr IVPB Q12H [facility]; Protocol Last Admin: 07/03/18 05:37 Dose: 167 mls/hr Piperacillin Sod/Tazobactam Sod (Zosyn 3.375 In Ns 100ml) 100 mls @ 25 mls/hr IVPB Q8 [facility]; Protocol Last Admin: 07/03/18 14:03 Dose: 25 mls/hr Levalbuterol HCl (Xopenex) 0.63 mg IH TIDRESP [facility] Last Admin: 07/03/18 13:24 Dose: 0.63 mg Levetiracetam (Keppra) 500 mg PO BID [facility]EN Lorazepam (Ativan) 1 mg IVP Q15M PRN; Protocol PRN Reason: Seizure activity Metoclopramide HCl (Reglan) 5 mg PO DAILY PRN PRN Reason: Constipation Pantoprazole Sodium (Protonix Inj) 40 mg IVP DAILY [facility] Last Admin: 07/03/18 10:21 Dose: 40 mg Phenytoin (Dilantin) 100 mg PO TID [facility] Last Admin: 07/03/18 14:04 Dose: 100 mg - Labs Labs: 07/03/18 05:50 07/03/18 05:50 - Constitutional Appears: No Acute Distress, Chronically Ill - Head Exam Head Exam: ATRAUMATIC, NORMOCEPHALIC - Eye Exam Eye Exam: EOMI, PERRL Pupil Exam: NORMAL ACCOMODATION, PERRL - ENT Exam ENT Exam: Mucous Membranes Moist, Normal External Ear Exam, TM's Normal Bilaterally Additional comments: stoma in place. - Neck Exam Neck Exam: Full ROM, Normal Inspection - Respiratory Exam Respiratory Exam: Decreased Breath Sounds, Clear to Ausculation Bilateral. absent: Rales, Rhonchi, Wheezes - Cardiovascular Exam Cardiovascular Exam: REGULAR RHYTHM, RRR, +S1, +S2 - GI/Abdominal Exam GI & Abdominal Exam: Soft, Normal Bowel Sounds. 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 Brought to [facility] for worsening SOB and hemoptysis. Found to have increased leukocytosis. CT scan showed bullous emphysema but no infiltrate. Started on IV Vancomycin and Zosyn. Obtain procalcitonin value. Cannot rule out leukocytosis secondary to oropharyngeal SCC. Continue antibiotics in meantime. Pharyngeal mass has increased in size compared to prior studies. Would check urine cultures and urinalysis as well. Carr cultures. Leukocytosis above patient's prior baseline with mild left shift. Cannot rule out an early pneumonia. Also cannot rule out whether increased leukocytosis may be secondary to the patient's recurrent oropharyngeal SCC. Thank you for allowing me to participate in the care of the patient, we will follow with you.
[2018-07-03 16:02] LABS: ALB/GLOB RATIO 0.7 (1.1-1.8); ALT/SGPT 47 U/L (7-56); AST/SGOT 50 U/L (17-59); BLOOD UREA NITROGEN 19 mg/dL (7-21); CALCIUM 10.5 mg/dL (8.4-10.5); GFR NON-AFRICAN AMERICAN > 60
--- NOTE | 2018-07-03 17:10 | CP.PCM.PN ---
Subjective - Date & Time of Evaluation Date of Evaluation: 07/03/18 Time of Evaluation: 17:07 - Subjective Subjective: Events noted. Tracheotomy changed to 8 Shiley non fen cuffed tube tolerated well FFl performed mainstem visualized crisp no mucus plug at immediate rt or lft mainstem bronchi Objective - Vital Signs/Intake and Output Vital Signs (last 24 hours): Temp Pulse Resp BP Pulse Ox 98 F 96 H 20 124/84 100 07/03/18 16:54 07/03/18 16:54 07/03/18 16:54 07/03/18 16:54 07/03/18 16:54 Intake and Output: 07/03/18 07/03/18 06:59 18:59 Intake Total 842 Output Total 600 Balance 242 - Medications Medications: Current Medications Acetylcysteine (Acetylcysteine 20%) 4 ml IH TID [facility] Last Admin: 07/03/18 13:24 Dose: 4 ml Albuterol/Ipratropium (Duoneb 3 Mg/0.5 Mg (3 Ml) Ud) 3 ml IH TIDRESP PRN PRN Reason: Shortness of Breath Sodium Chloride (Sodium Chloride 0.9%) 1,000 mls @ 125 mls/hr IV .Q8H [facility] Last Admin: 07/02/18 18:10 Dose: 125 mls/hr Vancomycin HCl (Vancomycin 1gm) 1 gm in 250 mls @ 167 mls/hr IVPB Q12H [facility]; Protocol Last Admin: 07/03/18 05:37 Dose: 167 mls/hr Piperacillin Sod/Tazobactam Sod (Zosyn 3.375 In Ns 100ml) 100 mls @ 25 mls/hr IVPB Q8 [facility]; Protocol Last Admin: 07/03/18 14:03 Dose: 25 mls/hr Levalbuterol HCl (Xopenex) 0.63 mg IH TIDRESP [facility] Last Admin: 07/03/18 13:24 Dose: 0.63 mg Levetiracetam (Keppra) 500 mg PO BID [facility] Lorazepam (Ativan) 1 mg IVP Q15M PRN; Protocol PRN Reason: Seizure activity Metoclopramide HCl (Reglan) 5 mg PO DAILY PRN PRN Reason: Constipation Pantoprazole Sodium (Protonix Inj) 40 mg IVP DAILY [facility] Last Admin: 07/03/18 10:21 Dose: 40 mg Phenytoin (Dilantin) 100 mg PO TID [facility] Last Admin: 07/03/18 14:04 Dose: 100 mg - Labs Labs: 07/03/18 15:30 07/03/18 15:30 - Neck Exam Additional comments: trach changed to 8 Shiley non fen cuffed tube, FFL no mucus plug seen rt and left mainstem wnl Assessment and Plan (1) Hemoptysis Status: Acute (2) Laryngeal cancer Status: Acute (3) Oropharyngeal mass Status: Acute (4) Aphonia Status: Acute (5) Anemia Status: Chronic (6) Dysphagia Status: Chronic (7) Seizures Status: Chronic (8) Dyspnea and respiratory abnormalities Status: Acute - Assessment and Plan (Free Text) Plan: tracheotomy tube changed to 8 Shiley nf, cuffed tube FFL performed through established tracheotomy tract-bronchoscopy tracheoscopy revealed no plug at immediate rt or left mainstem bronchi
[2018-07-03] MEDS: levETIRAcetam 500 mg/5ml UD cups PO SCH (17:28)
[2018-07-04] MEDS: Vancomycin 1gm in NS 250ml 1 GM/250 ML BAG IVPB SCH (06:06)
[2018-07-04] MEDS: Piperacillin/Tazobact 3.375 gm 100 ML IVPB SCH ×3 (06:06→21:57)
[2018-07-04 06:39] LABS: BASO # 0.01 K/mm3 (0.0-2.0); BASO % 0.1 % (0.0-3.0); EOS # 0.1 (0.0-0.7); EOS % 0.7 % (1.5-5.0); GRAN # 15.69 (1.4-6.5); GRAN % 81.5 % (50.0-68.0); HEMOGLOBIN 8.6 g/dL (14.0-18.0); LYMPH # 1.9 (1.2-3.4); LYMPH % 9.9 % (22.0-35.0); MEAN CELL VOLUME 91.2 fl (80.0-105.0); MEAN CORPUSCULAR HGB CONC 31.7 g/dl (31.0-37.0); MEAN PLATELET VOLUME 10.4 fl (7.0-11.0); MONO # 1.5 (0.1-0.6); MONO % 7.8 % (1.0-6.0); RBC 2.97 10^6/uL (3.5-6.1); RED CELL DISTRIBUTION WIDTH 14.8 % (11.5-14.5); WHITE BLOOD COUNT 19.2 10^3/ul (4.5-11.0)
[2018-07-04 06:47] LABS: ALB/GLOB RATIO 0.7 (1.1-1.8); ALBUMIN 2.7 g/dL (3.0-4.8); ALT/SGPT 49 U/L (7-56); AST/SGOT 48 U/L (17-59); BLOOD UREA NITROGEN 17 mg/dL (7-21); CALCIUM 10.1 mg/dL (8.4-10.5); GFR NON-AFRICAN AMERICAN > 60
[2018-07-04] MEDS: Acetylcysteine 20% Inhal Soln (4ml) IH SCH ×5 (07:43→21:52)
[2018-07-04] MEDS: Levalbuterol 0.63 MG/3 ML Inhal Soln UD IH SCH ×3 (07:44→20:51)
[2018-07-04] MEDS ORDERED: Potassium & Sodium Phosphate PEG ONE (08:14)
[2018-07-04] MEDS ORDERED: Potassium Chloride 40 mEq/30 ml LIQ UD PEG SCH (08:15)
--- NOTE | 2018-07-04 08:17 | CP.PCM.PN ---
<Alexey Mahmood - Last Filed: 07/04/18 11:35> Subjective - Date & Time of Evaluation Date of Evaluation: 07/04/18 Time of Evaluation: 07:00 - Subjective Subjective: Alexey Mahmood DO, PGY-1 Hospitalist Progress Note for Dr. Stacey Cleveland Patient was seen and examined at bedside this AM. He reports feeling much less short of breath and not having any gasping episodes since yesterday. He states he was able to sleep well last night. He denies fever/chills, CP, SOB, nausea/vomiting. Objective - Vital Signs/Intake and Output Vital Signs (last 24 hours): Temp Pulse Resp BP Pulse Ox 98 F 96 H 20 124/84 100 07/03/18 16:54 07/03/18 16:54 07/03/18 16:54 07/03/18 16:54 07/03/18 16:54 Intake and Output: 07/04/18 07/04/18 06:59 18:59 Intake Total 3780 Output Total 850 Balance 2930 - Medications Medications: Current Medications Acetylcysteine (Acetylcysteine 20%) 4 ml IH TID NAVEEN Last Admin: 07/04/18 07:43 Dose: 4 ml Albuterol/Ipratropium (Duoneb 3 Mg/0.5 Mg (3 Ml) Ud) 3 ml IH TIDRESP PRN PRN Reason: Shortness of Breath Sodium Chloride (Sodium Chloride 0.9%) 1,000 mls @ 125 mls/hr IV .Q8H NAVEEN Last Admin: 07/02/18 18:10 Dose: 125 mls/hr Vancomycin HCl (Vancomycin 1gm) 1 gm in 250 mls @ 167 mls/hr IVPB Q12H NAVEEN; Protocol Last Admin: 07/04/18 06:06 Dose: 167 mls/hr Piperacillin Sod/Tazobactam Sod (Zosyn 3.375 In Ns 100ml) 100 mls @ 25 mls/hr IVPB Q8 NAVEEN; Protocol Last Admin: 07/04/18 06:06 Dose: 25 mls/hr Levalbuterol HCl (Xopenex) 0.63 mg IH TIDRESP [facility]EN Last Admin: 07/04/18 07:44 Dose: 0.63 mg Levetiracetam (Keppra) 500 mg PO BID [facility] Last Admin: 07/03/18 17:28 Dose: 500 mg Lorazepam (Ativan) 1 mg IVP Q15M PRN; Protocol PRN Reason: Seizure activity Metoclopramide HCl (Reglan) 5 mg PO DAILY PRN PRN Reason: Constipation Pantoprazole Sodium (Protonix Inj) 40 mg IVP DAILY [facility] Last Admin: 07/03/18 10:21 Dose: 40 mg Phenytoin (Dilantin) 100 mg PO TID [facility] Last Admin: 07/03/18 17:28 Dose: 100 mg Potassium Chloride (Potassium Chloride Oral Soln) 40 meq PEG Q4H [facility] Stop: 07/04/18 12:16 Potassium Phos/Sodium Phos (Neutra-Phos) 1 pkt PEG ONCE ONE Stop: 07/04/18 08:15 - Labs Labs: 07/04/18 05:30 07/04/18 05:30 - Constitutional Appears: No Acute Distress, Cachectic, Chronically Ill - Head Exam Head Exam: ATRAUMATIC, NORMOCEPHALIC - Eye Exam Eye Exam: EOMI, PERRL Pupil Exam: PERRL - ENT Exam ENT Exam: Mucous Membranes Dry - Neck Exam Neck Exam: Full ROM Additional comments: dressing over tracheosotomy clean, dry, intact. Tracheostomy was changed yesterday by Dr. Tapia - Respiratory Exam Respiratory Exam: Decreased Breath Sounds (decreased b/l R > L but improved from prior exams). absent: Accessory Muscle Use, Rales, Rhonchi, Wheezes - Cardiovascular Exam Cardiovascular Exam: REGULAR RHYTHM, RRR, +S1, +S2. absent: Gallop, Rubs, Murmur - GI/Abdominal Exam GI & Abdominal Exam: Soft, Normal Bowel Sounds. absent: Guarding, Tenderness - Extremities Exam Extremities Exam: Normal Inspection. absent: Pedal Edema - Back Exam Back Exam: NORMAL INSPECTION - Neurological Exam Neurological Exam: Alert, Awake, Oriented x3 - Psychiatric Exam Psychiatric exam: Normal Affect, Normal Mood - Skin Skin Exam: Dry, Intact, Warm Assessment and Plan - Assessment and Plan (Free Text) Assessment: 73 yo M with PMH of oropharyngeal CA (s/p laryngectomy and tracheostomy), COPD, seizure disorder, and arthritis admitted for worsening SOB, secretions, and hemoptysis. Yesterday, had a rapid response event because of concern that he was gasping for air. ABG was performed and c/w hyperventilation. Repeat CXR, CBC, CMP showed no acute changes. He remained stable overnight and has not had any additional apneic episodes. Plan: 1. Worsening Secretions/Hemoptysis Likely 2/2 worsening tumor burden vs tracheostomy closure Rapid response called yesterday for concern of patient gasping No acute changes on stat CXR, CBC, CMP ordered at the time ABG performed at time c/w hyperventilation, repeat ABG this AM within normal limits After rapid response event, Dr. Tapia came and changed tracheostomy He is now suctioning himself and states he feels much less short of breath Continue xopenex Continue chest PT, pulmonary toilet, suctioning Continue tube feeds with aspiration pxns Treating empirically with vanc/zosyn for possible infiltrate/aspiration PNA ID following, recs appreciated Procal negative 2. COPD CT chest with many emphysematous blebs Continue xopenex, chest PT, pulmonary toilet, suctioning as described above Pulmonology following, recs appreciated 3. Hypercalcemia Likely 2/2 underlying malignancy Single dose of lasix given at time Ca this AM is 10.1 Will d/c IVF Continue to monitor Ca level closely Recheck Ca level in AM 4. Hypokalemia Repleted with 2 x doses of 40 mEq PO soln through PEG 4 hours apart Recheck in AM 5. 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 Goldberg this AM for consultation, will plan for palliative radiation but may not be able to receive it in the hospital Palliative care, Dr. Goldberg, and Dr. Alexandra following, recs appreciated 6. Hx of seizure disorder Continue keppra and dilantin GI/DVT PPX: protonix, SCD (SC heparin held for concern of hemoptysis, will restart if without hemoptysis for > 24 hrs) Full Code now but palliative consulted Tube feedings w/aspiration pxns Monitor on remote tele Case and plan reviewed and discussed with my attending Dr. Stacey Mahmood, IM Resident PGY-1 Pager: [phone] <Radha Cleveland R - Last Filed: 07/05/18 08:08> Objective - Vital Signs/Intake and Output Vital Signs (last 24 hours): Temp Pulse Resp BP Pulse Ox 98.4 F 82 20 131/71 99 07/04/18 17:05 07/05/18 06:00 07/04/18 17:05 07/04/18 17:05 07/04/18 17:05 Intake and Output: 07/05/18 07/05/18 06:59 18:59 Intake Total 100 Balance 100 - Medications Medications: Current Medications Acetylcysteine (Acetylcysteine 20%) 4 ml IH TID NAVEEN Last Admin: 07/05/18 08:03 Dose: 4 ml Albuterol/Ipratropium (Duoneb 3 Mg/0.5 Mg (3 Ml) Ud) 3 ml IH TIDRESP PRN PRN Reason: Shortness of Breath Vancomycin HCl (Vancomycin 1gm) 1 gm in 250 mls @ 167 mls/hr IVPB Q12H [facility]; Protocol Last Admin: 07/04/18 06:06 Dose: 167 mls/hr Piperacillin Sod/Tazobactam Sod (Zosyn 3.375 In Ns 100ml) 100 mls @ 25 mls/hr IVPB Q8 NAVEEN; Protocol Last Admin: 07/05/18 05:36 Dose: 25 mls/hr Levalbuterol HCl (Xopenex) 0.63 mg IH TIDRESP [facility] Last Admin: 07/05/18 08:03 Dose: 0.63 mg Levetiracetam (Keppra) 500 mg PO BID [facility] Last Admin: 07/04/18 17:24 Dose: 500 mg Lorazepam (Ativan) 1 mg IVP Q15M PRN; Protocol PRN Reason: Seizure activity Metoclopramide HCl (Reglan) 5 mg PO DAILY PRN PRN Reason: Constipation Pantoprazole Sodium (Protonix Inj) 40 mg IVP DAILY [facility] Last Admin: 07/04/18 10:28 Dose: 40 mg Phenytoin (Dilantin) 100 mg PO TID [facility] Last Admin: 07/04/18 17:23 Dose: 100 mg - Labs Labs: 07/05/18 06:45 07/05/18 06:45 Attending/Attestation - Attestation I have personally seen and examined this patient.: Yes I have fully participated in the care of the patient.: Yes I have reviewed all pertinent clinical information, including history, physical exam and plan: Yes Notes (Text): Patient seen and examined by me with resident 10:25AM on 07/04/18 with resident. Case including HPI, physical exam, and assessment and plan discussed with resident. Agree with above with following additions/corrections. 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 Patient states he is feeling ok. Patient mouths his words. Patient is suctioning himself. Patient states secretions have improved and shortness of breath has improved. Hemoptysis improved. No headaches or dizziness. No fevers or chills. No nausea, vomiting, or abdominal pain. No dysuria. Physical exam: General: Awake and alert lying in bed in no acute distress, cachectic appearing HEENT: Normocephalic atraumatic. Pupils equal reactive. No scleral icterus. Oropharynx is pink and moist. Positive trach collar in place. Cardiovascular: Normal S1, S2. No murmurs, rubs, or gallops appreciated Pulmonary: Normal respiratory effort. Decreased breath sounds. Coarse breath sounds. No rales or wheezing appreciated. Gastrointestinal: Soft, nondistended. Nontender. Positive bowel sounds all 4 quadrants, no guarding.Peg tube in place with no signs of infection. Musculoskeletal: Moves all extremities, no calf tenderness.No edema appreciated Central nervous system: AAOx3 Dermatologic: Skin warm and dry. 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 1. Hemoptysis. Increased secretions. Improved. May be secondary to worsening of tumor versus tracheostomy closure. Tracheostomy was changed 07/03/2018. ENT following, recommendations appreciated. Pulmonary following, recommendations appreciated. Continue with chest PT and suctioning. Continue nebulizer treatments. Continue Vanco and Zosyn for possible postobstructive pneumonia. Blood cultures with no growth. Leukocytosis stable. Patient is afebrile. ID following, recommendations appreciated. 2. Leukocytosis. Up trending. May be secondary to malignancy. Blood cultures with no growth. Patient afebrile. Continue Vanco and Zosyn for now. 3. Emphysema. Chest CT without contrast radiologist showed bullous emphysema. Continue nebulizer treatments. Continue chest PT. 4. Hypercalcemia. Likely secondary to malignancy. Patient was given Lasix and IV fluids with resolution. Continue to monitor. 5. Hypokalemia. Replace potassium. Follow-up repeat labs in a.m. 6. History of oropharyngeal cancer. CT neck per radiologist shows significant increase in size of the right lower pharyngeal soft tissue mass with occlusion of the area worsens and to prior examination; overall extent in size of the mass has increased; tracheostomy in place. Hematology/oncology following, recommendations appreciated. Radiation oncology consulted for palliative radiation. Patient is now DNR/DNI. Continue with PEG feeds. 7. History of seizure disorder. Continue Keppra and phenytoin. 8. GI/DVT prophylaxis. Protonix/SCDs. 9. Advanced directive. Patient has a POLST. Patient is DNR/DNI. Case discussed in detail with the patient regarding current diagnosis and treatment plan. All questions answered.
--- NOTE | 2018-07-04 08:24 | CP.PCM.PN ---
Subjective - Date & Time of Evaluation Date of Evaluation: 07/04/18 Time of Evaluation: 08:24 - Subjective Subjective: Hematology/Oncology Progress Note (Dr. Alexandra's Service) Patient seen and assessed at bedside. No acute events noted overnight. Patient reports that he tolerated his first palliative RT well without complaints. He does endorse that he trouble sleeping last night. Patient denies any further complaints at this time including fevers, chills, headache, chest pain, SOB, abdominal pain, N/V/D/C, changes in urine output, skin changes or any numbness/tingling of any extremity. Objective - Vital Signs/Intake and Output Vital Signs (last 24 hours): Temp Pulse Resp BP Pulse Ox 98 F 96 H 20 124/84 100 07/03/18 16:54 07/03/18 16:54 07/03/18 16:54 07/03/18 16:54 07/03/18 16:54 Intake and Output: 07/04/18 07/04/18 06:59 18:59 Intake Total 3780 Output Total 850 Balance 2930 - Medications Medications: Current Medications Acetylcysteine (Acetylcysteine 20%) 4 ml IH TID NAVEEN Last Admin: 07/04/18 07:43 Dose: 4 ml Albuterol/Ipratropium (Duoneb 3 Mg/0.5 Mg (3 Ml) Ud) 3 ml IH TIDRESP PRN PRN Reason: Shortness of Breath Sodium Chloride (Sodium Chloride 0.9%) 1,000 mls @ 125 mls/hr IV .Q8H [facility]EN Last Admin: 07/02/18 18:10 Dose: 125 mls/hr Vancomycin HCl (Vancomycin 1gm) 1 gm in 250 mls @ 167 mls/hr IVPB Q12H [facility]EN; Protocol Last Admin: 07/04/18 06:06 Dose: 167 mls/hr Piperacillin Sod/Tazobactam Sod (Zosyn 3.375 In Ns 100ml) 100 mls @ 25 mls/hr IVPB Q8 NAVEEN; Protocol Last Admin: 07/04/18 06:06 Dose: 25 mls/hr Levalbuterol HCl (Xopenex) 0.63 mg IH TIDRESP [facility] Last Admin: 07/04/18 07:44 Dose: 0.63 mg Levetiracetam (Keppra) 500 mg PO BID [facility] Last Admin: 07/03/18 17:28 Dose: 500 mg Lorazepam (Ativan) 1 mg IVP Q15M PRN; Protocol PRN Reason: Seizure activity Metoclopramide HCl (Reglan) 5 mg PO DAILY PRN PRN Reason: Constipation Pantoprazole Sodium (Protonix Inj) 40 mg IVP DAILY [facility] Last Admin: 07/03/18 10:21 Dose: 40 mg Phenytoin (Dilantin) 100 mg PO TID [facility] Last Admin: 07/03/18 17:28 Dose: 100 mg Potassium Chloride (Potassium Chloride Oral Soln) 40 meq PEG Q4H [facility] Stop: 07/04/18 12:16 - Labs Labs: 07/04/18 05:30 07/04/18 05:30 - Constitutional Appears: No Acute Distress, Cachectic - Head Exam Head Exam: ATRAUMATIC, NORMOCEPHALIC - Eye Exam Eye Exam: EOMI - ENT Exam ENT Exam: Mucous Membranes Moist - Neck Exam Neck Exam: Full ROM. absent: Lymphadenopathy, Meningismus, Tenderness, Thyromegaly Additional comments: Trach/stoma in place with collar; No visible secretions noted; No signs of cl inical infection of surrounding soft tissues - Respiratory Exam Respiratory Exam: Accessory Muscle Use (Intermittently), Decreased Breath Sounds (Right>Left). absent: Chest Wall Tenderness, Clear to Ausculation Bilateral, Rales, Rhonchi, Wheezes, Respiratory Distress, NORMAL BREATHING PATTERN - Cardiovascular Exam Cardiovascular Exam: +S1, +S2. absent: Tachycardia, Irregular Rhythm - GI/Abdominal Exam GI & Abdominal Exam: Soft, Normal Bowel Sounds. absent: Tenderness Additional comments: g-tube in place without signs of clinical infection of surrounding soft tissues - Extremities Exam Extremities Exam: absent: Calf Tenderness, Joint Swelling, Pedal Edema, Tenderness - Neurological Exam Neurological Exam: Alert, Awake, Oriented x3 - Psychiatric Exam Psychiatric exam: Normal Affect, Normal Mood - Skin Skin Exam: Dry, Intact, Normal Color, Warm Assessment and Plan - Assessment and Plan (Free Text) Assessment: 73 year old male with a past medical history significant for laryngeal SCC (diagnosed in 2012) s/p laryngectomy, concurrent chemo/XRT s/p tracheostomy and PEG, COPD, and seizures who presents with SOB and intermittent blood tinged sputum. Of note, CT soft tissue of neck showed progression of previously recorde d laryngeal tumor from 2.5x3.1x6.4cm to now 5.0x6.8x10.3cm. PET/CT reviewed and showed metastatic adenopathy. Patient was also found to bullous emphysema with questionable right sided mucus plug. Radiation Oncology was consulted and patient is undergoing palliative RT. Patient was made DNR/DNI via POLST earlier today. Plan: -PET/CT reviewed and showed metastatic adenopathy -CT soft tissue H/N showed progression of tumor with measurements as stated above -Radiation Oncology consulted, all recommendations appreciated; Continue palliative RT -Pulmonology consulted, all recommendations appreciated; Continue Xopenex, Mucormyst, Duonebs and supplemental O2 as needed -Palliative consultation noted, all recommendations appreciated; Patient made DNR/DNI via POLST -ID consulted, all recommendations appreciated; Currently on Vancomycin and Zosyn -ENT consulted, all recommendations appreciated; Continue with trach care and management as ordered -Continue tube feeds as ordered -Continue intermittent self suctioning -Further recommendations as per Dr. Alexandra Disposition: Palliative Care and I met with patient this morning and had detailed conversation regarding patients wishes for resuscitation, mechanical ventilation and dialysis. Patient, noted to be alert and oriented to person, place, time and event, expressed that he would like to made DNR/DNI and does not wish to have dialysis should he come to a point where he would need it. Should he not be able to make his own decisions, he expressed that he would like to have his , Sonia Rothman, and his son, Haresh Morrison, as his surrogate decision makers. Patient seen and case discussed with attending, Dr. Alexandra. Ferdinand Hatfield PGY2
[2018-07-04] MEDS ORDERED: Potassium Chloride 20 mEq ER Tab PO ONE (08:49)
[2018-07-04] MEDS ORDERED: Potassium Chloride 40 mEq/30 ml LIQ UD PEG ONE (08:53)
[2018-07-04 10:01] LABS: ARTERIAL BLOOD GAS HCO3 29.2 mmol/L (21-28); ARTERIAL BLOOD GAS HEMOGLOBIN 8.5 g/dL (11.7-17.4); ARTERIAL BLOOD GAS O2 CAPACITY 11.8 mL/dl (16-24); ARTERIAL BLOOD GAS O2 CONTENT 11.8 ML/dl (15-23); ARTERIAL BLOOD GAS O2 SAT 100.3 % (95-98); ARTERIAL BLOOD GAS PCO2 42 mm/Hg (35-45); ARTERIAL BLOOD GAS PH 7.45 (7.35-7.45); ARTERIAL BLOOD GAS TCO2 30.5 mmol.L (22-28)
[2018-07-04] MEDS: Sodium Chloride 0.9% 1,000 ML IV SCH (10:29)
--- NOTE | 2018-07-04 11:36 | CP.PCM.PN ---
Subjective - Date & Time of Evaluation Date of Evaluation: 07/04/18 Time of Evaluation: 11:00 - Subjective Subjective: Alert, oriented. Offers no complaints Objective - Vital Signs/Intake and Output Vital Signs (last 24 hours): Temp Pulse Resp BP Pulse Ox 97.4 F L 89 16 111/65 98 07/04/18 06:00 07/04/18 06:00 07/04/18 06:00 07/04/18 06:00 07/04/18 06:00 Intake and Output: 07/04/18 07/04/18 06:59 18:59 Intake Total 3780 Output Total 850 Balance 2930 - Medications Medications: Current Medications Acetylcysteine (Acetylcysteine 20%) 4 ml IH TID NAVEEN Last Admin: 07/04/18 07:43 Dose: 4 ml Albuterol/Ipratropium (Duoneb 3 Mg/0.5 Mg (3 Ml) Ud) 3 ml IH TIDRESP PRN PRN Reason: Shortness of Breath Vancomycin HCl (Vancomycin 1gm) 1 gm in 250 mls @ 167 mls/hr IVPB Q12H [facility]; Protocol Last Admin: 07/04/18 06:06 Dose: 167 mls/hr Piperacillin Sod/Tazobactam Sod (Zosyn 3.375 In Ns 100ml) 100 mls @ 25 mls/hr IVPB Q8 NAVEEN; Protocol Last Admin: 07/04/18 06:06 Dose: 25 mls/hr Levalbuterol HCl (Xopenex) 0.63 mg IH TIDRESP [facility] Last Admin: 07/04/18 07:44 Dose: 0.63 mg Levetiracetam (Keppra) 500 mg PO BID [facility] Last Admin: 07/03/18 17:28 Dose: 500 mg Lorazepam (Ativan) 1 mg IVP Q15M PRN; Protocol PRN Reason: Seizure activity Metoclopramide HCl (Reglan) 5 mg PO DAILY PRN PRN Reason: Constipation Pantoprazole Sodium (Protonix Inj) 40 mg IVP DAILY [facility] Last Admin: 07/04/18 10:28 Dose: 40 mg Phenytoin (Dilantin) 100 mg PO TID [facility] Last Admin: 07/03/18 17:28 Dose: 100 mg - Labs Labs: 07/04/18 05:30 07/04/18 05:30 - Constitutional Appears: Cachectic, Chronically Ill - Eye Exam Eye Exam: Normal appearance, PERRL - ENT Exam ENT Exam: Mucous Membranes Moist Additional comments: trach patient, suctioning stoma secretion himself - Respiratory Exam Respiratory Exam: Rhonchi, NORMAL BREATHING PATTERN Additional comments: trach collar - Cardiovascular Exam Cardiovascular Exam: REGULAR RHYTHM, +S1, +S2 - GI/Abdominal Exam GI & Abdominal Exam: Soft, Normal Bowel Sounds Additional comments: PEG patent, site dry no erythema - Extremities Exam Extremities Exam: Normal Capillary Refill - Neurological Exam Neurological Exam: Alert, Oriented x3 - Skin Skin Exam: Dry, Warm Assessment and Plan - Assessment and Plan (Free Text) Assessment: 73 year old male with history of advanced laryngeal cancer, s/p laryngectomy,chemo/XRT and seizure disorder, DM who is admitted with LLL infiltrate, leukocytosis. CT shows progression of disease with complete obst ruction of airway. Patient currently undergoing XRT Dr. Betsy Hatfield and I spoke with patient at length about goals of care and advance care planning. Benefits and burdens of CPR and mechanical ventilation explained Patient expressed understanding of the ramifications of CPR/intubation. He expressed that he did not want CPR/mechanical ventilation or dialysis. However, he does wish to continue palliative XRT. POLST DNR/DNI completed. The patient named his Sonia Bermeo and son, Haresh Morrison as health are surrogates. I spoke with patient's son Haresh, and informed of his father wishes regaridng CPR/intubation.Son understands and is in agreement with health care directive. Will also notify patient's , Sonia. Time spent with patient/family in goals of care and advance care planning discussion, 30 minutes Plan: Goals of care and advance care planing; POLST: DNR/DNI Squamous Cell laryngeal cancer: Continue palliative XRT, Dr Goldberg and Dr Alexandra following Seizures: Continue Keppra, Dilantin Leukocytosis/ LLL infiltrate: Continue Zosyn
[2018-07-04] MEDS: levETIRAcetam 500 mg/5ml UD cups PO SCH ×2 (11:41→17:24)
[2018-07-04] MEDS: Phenytoin 100 mg/4 ml Oral Susp UD PO SCH ×3 (11:41→17:23)
--- NOTE | 2018-07-04 12:23 | CP.PCM.PN ---
Subjective - Date & Time of Evaluation Date of Evaluation: 07/04/18 Time of Evaluation: 10:10 - Subjective Subjective: Patient seen and examined at bedside, reports to be feeling better. Objective - Vital Signs/Intake and Output Vital Signs (last 24 hours): Temp Pulse Resp BP Pulse Ox 97.4 F L 89 16 111/65 98 07/04/18 06:00 07/04/18 06:00 07/04/18 06:00 07/04/18 06:00 07/04/18 06:00 Intake and Output: 07/04/18 07/04/18 06:59 18:59 Intake Total 3780 Output Total 850 Balance 2930 - Medications Medications: Current Medications Acetylcysteine (Acetylcysteine 20%) 4 ml IH TID [facility]EN Last Admin: 07/04/18 07:43 Dose: 4 ml Albuterol/Ipratropium (Duoneb 3 Mg/0.5 Mg (3 Ml) Ud) 3 ml IH TIDRESP PRN PRN Reason: Shortness of Breath Vancomycin HCl (Vancomycin 1gm) 1 gm in 250 mls @ 167 mls/hr IVPB Q12H [facility]; Protocol Last Admin: 07/04/18 06:06 Dose: 167 mls/hr Piperacillin Sod/Tazobactam Sod (Zosyn 3.375 In Ns 100ml) 100 mls @ 25 mls/hr IVPB Q8 [facility]; Protocol Last Admin: 07/04/18 06:06 Dose: 25 mls/hr Levalbuterol HCl (Xopenex) 0.63 mg IH TIDRESP [facility] Last Admin: 07/04/18 07:44 Dose: 0.63 mg Levetiracetam (Keppra) 500 mg PO BID [facility] Last Admin: 07/04/18 11:41 Dose: 500 mg Lorazepam (Ativan) 1 mg IVP Q15M PRN; Protocol PRN Reason: Seizure activity Metoclopramide HCl (Reglan) 5 mg PO DAILY PRN PRN Reason: Constipation Pantoprazole Sodium (Protonix Inj) 40 mg IVP DAILY [facility] Last Admin: 07/04/18 10:28 Dose: 40 mg Phenytoin (Dilantin) 100 mg PO TID [facility] Last Admin: 07/04/18 11:41 Dose: 100 mg - Labs Labs: 07/04/18 05:30 07/04/18 05:30 - Constitutional Appears: Non-toxic, No Acute Distress, Older Than Stated Age, Cachectic, Chronically Ill - Head Exam Head Exam: NORMAL INSPECTION - Eye Exam Eye Exam: Normal appearance - ENT Exam Additional comments: + TRACH - Respiratory Exam Respiratory Exam: Clear to Ausculation Bilateral, NORMAL BREATHING PATTERN - Cardiovascular Exam Cardiovascular Exam: REGULAR RHYTHM, +S1, +S2 - GI/Abdominal Exam GI & Abdominal Exam: Soft, Normal Bowel Sounds - Extremities Exam Extremities Exam: Normal Inspection Assessment and Plan - Assessment and Plan (Free Text) Assessment: Patient is 73yo male with 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, with recurrence, s/p PEG, COPD, Seizure, OA, smoking a/with SOB, hemoptysis Hemopsys SOB Mucus in airway on CT EMphysema Smoking hx Pharyngeal mass Oropharyngeal SCC s/p Laryngectomy, and trach - currently afebrile,BP stable, comfortable in NAD, on 40% Trach collar, - parynchemal examination on CT demonstrates bullous emphysema, with some minimal mucus in airways with NO lung collapse/atelectasis; NO Definitive infiltrate - CXR repeated yesterday demonstrates no definitive evidence of lung collapse/atelectasis - Chest PT - Mucomyst - OOB to chair, mobilization - Hood PRN - Brovana, Pulmicort - DVT ppx - Patient is now DNR/DNI, palliative care following
--- NOTE | 2018-07-04 18:05 | CP.PCM.PN ---
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 Subsequently in 2016 patient was found to have recurrence of throat CA. He presented most recently in 05/2018 w/ large soft tissue mass in oropharyngeal region; during this visit patient received PEG tube placement. He was to follow up with heme/onc Dr. Cleveland however reported he was unable to make appt due to poor transportation. Patient reports he currently not undergoing radiation/chemotherapy at this time. Remainder of PMHx is significant for COPD, Seizure, and arthritis. [place] [facility] [place] w/ complaints of SOB, Hemoptysis, worsening secretions over the past month. Patient reports hemoptysis as light pink tinged mucopurlent sputum does not report overtly bloody or clotted sputum. He says his SOB feels as if he is not getting enough air through his tracheostomy. Patient reported he sees ENT Dr. Tapia for trach management. ID called for evaluation of potential HCAP. CT Chest showing bullous emphysema but no infiltrate. Cannot rule out early infiltrate. Patient still with leukocytosis. On trach collar with supplemental O2. Patient is awake, alert, and answer questions appropriately. He states that he is feeling better today. Objective - Vital Signs/Intake and Output Vital Signs (last 24 hours): Temp Pulse Resp BP Pulse Ox 98.4 F 90 20 131/71 99 07/04/18 17:05 07/04/18 17:05 07/04/18 17:05 07/04/18 17:05 07/04/18 17:05 Intake and Output: 07/04/18 07/04/18 06:59 18:59 Intake Total 3780 Output Total 850 Balance 2930 - Medications Medications: Current Medications Acetylcysteine (Acetylcysteine 20%) 4 ml IH TID [facility] Last Admin: 07/04/18 13:31 Dose: 4 ml Albuterol/Ipratropium (Duoneb 3 Mg/0.5 Mg (3 Ml) Ud) 3 ml IH TIDRESP PRN PRN Reason: Shortness of Breath Vancomycin HCl (Vancomycin 1gm) 1 gm in 250 mls @ 167 mls/hr IVPB Q12H [facility]; Protocol Last Admin: 07/04/18 06:06 Dose: 167 mls/hr Piperacillin Sod/Tazobactam Sod (Zosyn 3.375 In Ns 100ml) 100 mls @ 25 mls/hr IVPB Q8 [facility]; Protocol Last Admin: 07/04/18 14:14 Dose: 25 mls/hr Levalbuterol HCl (Xopenex) 0.63 mg IH TIDRESP [facility] Last Admin: 07/04/18 13:33 Dose: 0.63 mg Levetiracetam (Keppra) 500 mg PO BID [facility] Last Admin: 07/04/18 17:24 Dose: 500 mg Lorazepam (Ativan) 1 mg IVP Q15M PRN; Protocol PRN Reason: Seizure activity Metoclopramide HCl (Reglan) 5 mg PO DAILY PRN PRN Reason: Constipation Pantoprazole Sodium (Protonix Inj) 40 mg IVP DAILY [facility] Last Admin: 07/04/18 10:28 Dose: 40 mg Phenytoin (Dilantin) 100 mg PO TID [facility] Last Admin: 07/04/18 17:23 Dose: 100 mg - Labs Labs: 07/04/18 05:30 07/04/18 05:30 - Constitutional Appears: No Acute Distress, Chronically Ill - Head Exam Head Exam: ATRAUMATIC, NORMOCEPHALIC - Eye Exam Eye Exam: EOMI, PERRL Pupil Exam: NORMAL ACCOMODATION, PERRL - ENT Exam ENT Exam: Mucous Membranes Moist, Normal External Ear Exam, TM's Normal Bilaterally Additional comments: stoma in place. - Neck Exam Neck Exam: Full ROM, Normal Inspection - Respiratory Exam Respiratory Exam: Decreased Breath Sounds, Clear to Ausculation Bilateral. absent: Rales, Rhonchi, Wheezes - Cardiovascular Exam Cardiovascular Exam: REGULAR RHYTHM, RRR, +S1, +S2 - GI/Abdominal Exam GI & Abdominal Exam: Soft, Normal Bowel Sounds. 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 [place] [facility] [place] and hemoptysis. Found to have increased leukocytosis. CT scan showed bullous emphysema but no infiltrate. Started on IV Vancomycin and Zosyn. Obtain procalcitonin value. Cannot rule out leukocytosis secondary to oropharyngeal SCC. Continue antibiotics in meantime. Pharyngeal mass has increased in size compared to prior studies. Would check urine cultures and urinalysis as well. Carr cultures. Leukocytosis above patient's prior baseline with mild left shift. Cannot rule out an early pneumonia. Also cannot rule out whether increased leukocytosis may be secondary to the patient's recurrent oropharyngeal SCC. Persistent leukocytosis. Remains afebrile. Thank you for allowing me to participate in the care of the patient, we will follow with you.
[2018-07-05] MEDS: Piperacillin/Tazobact 3.375 gm 100 ML IVPB SCH ×3 (05:36→21:32)
[2018-07-05 07:14] LABS: BASO # 0.02 K/mm3 (0.0-2.0); BASO % 0.1 % (0.0-3.0); EOS # 0.1 (0.0-0.7); EOS % 0.6 % (1.5-5.0); GRAN # 16.8 (1.4-6.5); GRAN % 85.1 % (50.0-68.0); HEMOGLOBIN 9.8 g/dL (14.0-18.0); LYMPH # 1.9 (1.2-3.4); LYMPH % 9.6 % (22.0-35.0); MEAN CELL VOLUME 91.7 fl (80.0-105.0); MEAN CORPUSCULAR HEMOGLOBIN 28.9 pg (25.0-35.0); MEAN CORPUSCULAR HGB CONC 31.5 g/dl (31.0-37.0); MEAN PLATELET VOLUME 10.4 fl (7.0-11.0); MONO # 0.9 (0.1-0.6); MONO % 4.6 % (1.0-6.0); RBC 3.39 10^6/uL (3.5-6.1); RED CELL DISTRIBUTION WIDTH 14.9 % (11.5-14.5); WHITE BLOOD COUNT 19.7 10^3/uL (4.5-11.0)
[2018-07-05 07:55] LABS: ALB/GLOB RATIO 0.7 (1.1-1.8); ALBUMIN 2.7 g/dL (3.0-4.8); ALT/SGPT 45 U/L (7-56); AST/SGOT 61 U/L (17-59); BLOOD UREA NITROGEN 23 mg/dL (7-21); CALCIUM 10.6 mg/dL (8.4-10.5); GFR NON-AFRICAN AMERICAN > 60
[2018-07-05] MEDS: Acetylcysteine 20% Inhal Soln (4ml) IH SCH ×3 (08:03→20:27)
[2018-07-05] MEDS: Levalbuterol 0.63 MG/3 ML Inhal Soln UD IH SCH ×3 (08:03→20:27)
--- NOTE | 2018-07-05 09:32 | CP.PCM.PN ---
<Alexey Mahmood - Last Filed: 07/05/18 16:22> Subjective - Date & Time of Evaluation Date of Evaluation: 07/05/18 Time of Evaluation: 08:00 - Subjective Subjective: Alexey Mahmood DO, PGY-1 Hospitalist Progress Note for Dr. Stacey Cleveland Patient was seen and examined at bedside this AM. He reports feeling much less short of breath and not having any gasping episodes since yesterday. He has been suctioning his tracheostomy himself as needed. Objective - Vital Signs/Intake and Output Vital Signs (last 24 hours): Temp Pulse Resp BP Pulse Ox 97.4 F L 78 20 113/68 98 07/05/18 06:00 07/05/18 06:00 07/05/18 06:00 07/05/18 06:00 07/05/18 06:00 Intake and Output: 07/05/18 07/05/18 06:59 18:59 Intake Total 100 Balance 100 - Medications Medications: Current Medications Acetylcysteine (Acetylcysteine 20%) 4 ml IH TID [facility] Last Admin: 07/05/18 08:03 Dose: 4 ml Albuterol/Ipratropium (Duoneb 3 Mg/0.5 Mg (3 Ml) Ud) 3 ml IH TIDRESP PRN PRN Reason: Shortness of Breath Vancomycin HCl (Vancomycin 1gm) 1 gm in 250 mls @ 167 mls/hr IVPB Q12H [facility]; Protocol Last Admin: 07/04/18 06:06 Dose: 167 mls/hr Piperacillin Sod/Tazobactam Sod (Zosyn 3.375 In Ns 100ml) 100 mls @ 25 mls/hr IVPB Q8 [facility]; Protocol Last Admin: 07/05/18 05:36 Dose: 25 mls/hr Levalbuterol HCl (Xopenex) 0.63 mg IH TIDRESP [facility] Last Admin: 07/05/18 08:03 Dose: 0.63 mg Levetiracetam (Keppra) 500 mg PO BID [facility] Last Admin: 07/04/18 17:24 Dose: 500 mg Lorazepam (Ativan) 1 mg IVP Q15M [facility]; Protocol PRN Reason: Seizure activity Metoclopramide HCl (Reglan) 5 mg PO DAILY PRN PRN Reason: Constipation Pantoprazole Sodium (Protonix Inj) 40 mg IVP DAILY [facility] Last Admin: 07/04/18 10:28 Dose: 40 mg Phenytoin (Dilantin) 100 mg PO TID [facility] Last Admin: 07/04/18 17:23 Dose: 100 mg - Labs Labs: 07/05/18 06:45 07/05/18 06:45 - Constitutional Appears: No Acute Distress, Cachectic, Chronically Ill - Head Exam Head Exam: ATRAUMATIC, NORMOCEPHALIC - Eye Exam Eye Exam: EOMI, Normal appearance, PERRL - ENT Exam ENT Exam: Mucous Membranes Dry - Neck Exam Neck Exam: Full ROM Additional comments: tracheostomy clean, dry, intact, recently changed per Dr. Tapia - Respiratory Exam Respiratory Exam: Decreased Breath Sounds (decreased b/l, R > L). absent: Accessory Muscle Use, Rales, Rhonchi, Wheezes, Respiratory Distress - Cardiovascular Exam Cardiovascular Exam: REGULAR RHYTHM, RRR, +S1, +S2. absent: Gallop, Rubs, Murmur - GI/Abdominal Exam GI & Abdominal Exam: Soft, Normal Bowel Sounds Additional comments: PEG tube in place, clean, dry, intact - Extremities Exam Extremities Exam: absent: Calf Tenderness, Joint Swelling, Pedal Edema - Neurological Exam Neurological Exam: Alert, Awake, Oriented x3 - Psychiatric Exam Psychiatric exam: Normal Affect, Normal Mood - Skin Skin Exam: Dry, Intact, Warm Assessment and Plan - Assessment and Plan (Free Text) Assessment: 73 yo M with PMH of oropharyngeal CA (s/p laryngectomy and tracheostomy), COPD, seizure disorder, and arthritis admitted for worsening SOB, secretions, and hemoptysis. He is now stable and has not had any additional apneic episodes. Palliative care spoke with his family and patient together. The decision was made to make him DNR/DNI moving forward. Plan: 1. Worsening Secretions/Hemoptysis Likely 2/2 worsening tumor burden vs tracheostomy closure Tracheostomy changed per Dr. Tapia He is now suctioning himself and clearing secretions well Continue xopenex Continue suctioning, chest PT as needed Continue tube feeds with aspiration pxns Treating empirically with vanc/zosyn for possible infiltrate/aspiration PNA ID following, recs appreciated 2. COPD CT chest with many emphysematous blebs Continue xopenex, chest PT, pulmonary toilet, suctioning as described above Pulmonology following, recs appreciated 3. Hypercalcemia Likely 2/2 underlying malignancy Single dose of lasix given on admission Ca increased today to 10.6 Restart NS @ 100 cc/hr Continue to monitor Ca level closely 4. Hypokalemia Resolved, continue to monitor 5. Hx of oropharyngeal SCC Likely 2/2 heavy smoking hx Has hx of laryngectomy and tracheostomy Palliative radiation per Dr. Goldberg Palliative care, Dr. Goldberg, and Dr. Alexandra following, recs appreciated 6. Hx of seizure disorder Continue keppra and dilantin GI/DVT PPX: protonix, SCD, restart SC heparin (held due to concern of hemoptysis on admission) DNR/DNI Tube feedings w/aspiration pxns, adjustments per administrative asst Monitor on remote tele Case and plan reviewed and discussed with my attending Dr. Stacey Mahmood DO Resident PGY-1 Pager: [phone] <Radha Cleveland R - Last Filed: 07/07/18 07:39> Objective - Vital Signs/Intake and Output Vital Signs (last 24 hours): Temp Pulse Resp BP Pulse Ox 99.9 F H 101 H 20 125/78 94 L 07/07/18 03:00 07/07/18 06:02 07/06/18 23:50 07/06/18 23:50 07/06/18 23:50 Intake and Output: 07/07/18 07/07/18 06:59 18:59 Intake Total 2320 Output Total 800 Balance 1520 - Medications Medications: Current Medications Acetylcysteine (Acetylcysteine 20%) 4 ml IH TID [facility] Last Admin: 07/06/18 17:12 Dose: 4 ml Albuterol/Ipratropium (Duoneb 3 Mg/0.5 Mg (3 Ml) Ud) 3 ml IH TIDRESP PRN PRN Reason: Shortness of Breath Last Admin: 07/06/18 21:46 Dose: 3 ml Baclofen (Lioresal) 5 mg PO TID PRN PRN Reason: Hiccups Heparin Sodium (Porcine) (Heparin) 5,000 units SC Q8 [facility]; Protocol Last Admin: 07/07/18 05:06 Dose: 5,000 units Vancomycin HCl (Vancomycin 1gm) 1 gm in 250 mls @ 167 mls/hr IVPB Q12H [facility]; Protocol Last Admin: 07/07/18 05:06 Dose: 167 mls/hr Sodium Chloride (Sodium Chloride 0.9%) 1,000 mls @ 100 mls/hr IV .Q10H [facility] Last Admin: 07/07/18 03:16 Dose: 100 mls/hr Levalbuterol HCl (Xopenex) 0.63 mg IH TIDRESP [facility] Last Admin: 07/06/18 17:13 Dose: 0.63 mg Levetiracetam (Keppra) 500 mg PO BID [facility] Last Admin: 07/06/18 17:35 Dose: 500 mg Lorazepam (Ativan) 1 mg IVP Q15M [facility]; Protocol PRN Reason: Seizure activity Metoclopramide HCl (Reglan) 5 mg PO DAILY PRN PRN Reason: Constipation Pantoprazole Sodium (Protonix Inj) 40 mg IVP DAILY [facility] Last Admin: 07/06/18 09:39 Dose: 40 mg Phenytoin (Dilantin) 100 mg PO TID [facility] Last Admin: 07/06/18 17:35 Dose: 100 mg - Labs Labs: 07/06/18 07:00 07/06/18 07:00 Attending/Attestation - Attestation I have personally seen and examined this patient.: Yes I have fully participated in the care of the patient.: Yes I have reviewed all pertinent clinical information, including history, physical exam and plan: Yes Notes (Text): Patient seen and examined by me with resident 11:40AM on 07/05/18 with resident. Case including HPI, physical exam, and assessment and plan discussed with resident. Agree with above with following additions/corrections. 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 Patient states he is feeling better. Patient mouths his words. Patient continues to suctionin himself. Secretions improved. Patietn feels shortness of breath has improved. Hemoptysis has resolved. No headaches or dizziness. No fevers or chills. No nausea, vomiting, or abdominal pain. Patient complaining of some dysuria. Physical exam: General: Awake and alert lying in bed in no acute distress, cachectic appearing HEENT: Normocephalic atraumatic. Pupils equal reactive. No scleral icterus. Oropharynx is pink and moist. Positive trach collar in place, no signs of infection. Cardiovascular: Normal S1, S2. No murmurs, rubs, or gallops appreciated Pulmonary: Normal respiratory effort. Decreased breath sounds. Coarse breath sounds. No rales or wheezing appreciated. Gastrointestinal: Soft, nondistended. Nontender. Positive bowel sounds all 4 quadrants, no guarding.Peg tube in place with no signs of infection. Musculoskeletal: Moves all extremities, no calf tenderness.No edema appreciated Central nervous system: AAOx3 Dermatologic: Skin warm and dry. 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 1. Hemoptysis. Increased secretions. Much improved. May be secondary to worsening of tumor versus tracheostomy closure. Tracheostomy was changed 07/03/2018. Continue with chest PT. Continue suctioning. Continue nebulizer treatments, Vancomycin, and Zosyn. Blood cultures with no growth. Leukocytosis slowly uptrending. Patient is afebrile. ID following, recommendations appreciated. ENT following, recommendations appreciated. Pulmonary following, recommendations appreciated. 2. Leukocytosis. Up trending. May be secondary to malignancy. Blood cultures with no growth. Patient afebrile. Continue Vanco and Zosyn for now. Follow up urinalysis and urine culture. 3. Dysuria. Follow up urinalysis and urine culture. 4. Emphysema. Chest CT without contrast radiologist showed bullous emphysema. Continue nebulizer treatments. Continue chest PT and suctioning. 5. Hypercalcemia. Likely secondary to malignancy. Placed on IV fluids. Follow up repeat labs in a.m. 6. Hypokalemia. Resolved. Continue to monitor. 7. History of oropharyngeal cancer. CT neck per radiologist shows significant increase in size of the right lower pharyngeal soft tissue mass with occlusion of the area worsens and to prior examination; overall extent in size of the mass has increased; tracheostomy in place. Hematology/oncology following, recommendations appreciated. Radiation oncology consulted for palliative radiation. Patient is now DNR/DNI. 8. History of seizure disorder. Continue Keppra and phenytoin. 9. GI/DVT prophylaxis. Protonix/SCDs. 10. Advanced directive. Patient has a POLST. Patient is DNR/DNI. Case discussed in detail with the patient regarding current diagnosis and treatment plan. All questions answered.
[2018-07-05] MEDS: Phenytoin 100 mg/4 ml Oral Susp UD PO SCH ×3 (09:56→17:07)
[2018-07-05] MEDS: levETIRAcetam 500 mg/5ml UD cups PO SCH ×2 (09:56→17:07)
[2018-07-05] MEDS: Vancomycin 1gm in NS 250ml 1 GM/250 ML BAG IVPB SCH ×2 (09:57→17:07)
[2018-07-05] MEDS ORDERED: Sodium Chloride 0.9% 1,000 ML IV SCH (13:30)
[2018-07-05] MEDS: Sodium Chloride 0.9% 1,000 ML IV SCH (14:29)
--- NOTE | 2018-07-05 14:47 | CP.PCM.PN ---
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 Subsequently in 2016 patient was found to have recurrence of throat CA. He presented most recently in 05/2018 w/ large soft tissue mass in oropharyngeal region; during this visit patient received PEG tube placement. He was to follow up with heme/onc Dr. Cleveland however reported he was unable to make appt due to poor transportation. Patient reports he currently not undergoing radiation/chemotherapy at this time. Remainder of PMHx is significant for COPD, Seizure, and arthritis. He presented to [facility] [place] [facility] 07/02 w/ complaints of SOB, Hemoptysis, worsening secretions over the past month. Patient reports hemoptysis as light pink tinged mucopurlent sputum does not report overtly bloody or clotted sputum. He says his SOB feels as if he is not getting enough air through his tracheostomy. Patient reported he sees ENT Dr. Tapia for trach management. ID called for evaluation of potential HCAP. CT Chest showing bullous emphysema but no infiltrate. Cannot rule out early infiltrate. Patient still with leukocytosis. On trach collar with supplemental O2. Patient is awake, alert, and answer questions appropriately. He states that he is feeling better today. Patient states that is less SOB and breathing easier. Objective - Vital Signs/Intake and Output Vital Signs (last 24 hours): Temp Pulse Resp BP Pulse Ox 97.4 F L 78 20 113/68 98 07/05/18 06:00 07/05/18 06:00 07/05/18 06:00 07/05/18 06:00 07/05/18 06:00 Intake and Output: 07/05/18 07/05/18 06:59 18:59 Intake Total 100 Balance 100 - Medications Medications: Current Medications Acetylcysteine (Acetylcysteine 20%) 4 ml IH TID [facility] Last Admin: 07/05/18 13:36 Dose: 4 ml Albuterol/Ipratropium (Duoneb 3 Mg/0.5 Mg (3 Ml) Ud) 3 ml IH TIDRESP PRN PRN Reason: Shortness of Breath Vancomycin HCl (Vancomycin 1gm) 1 gm in 250 mls @ 167 mls/hr IVPB Q12H [facility]; Protocol Last Admin: 07/05/18 09:57 Dose: 167 mls/hr Piperacillin Sod/Tazobactam Sod (Zosyn 3.375 In Ns 100ml) 100 mls @ 25 mls/hr IVPB Q8 [facility]; Protocol Last Admin: 07/05/18 14:30 Dose: 25 mls/hr Sodium Chloride (Sodium Chloride 0.9%) 1,000 mls @ 100 mls/hr IV .Q10H [facility] Last Admin: 07/05/18 14:29 Dose: 100 mls/hr Sodium Chloride (Sodium Chloride 0.9%) 1,000 mls @ 100 mls/hr IV .Q10H [facility] Last Admin: 07/05/18 14:29 Dose: Not Given Levalbuterol HCl (Xopenex) 0.63 mg IH TIDRESP [facility] Last Admin: 07/05/18 13:36 Dose: 0.63 mg Levetiracetam (Keppra) 500 mg PO BID [facility] Last Admin: 07/05/18 09:56 Dose: 500 mg Lorazepam (Ativan) 1 mg IVP Q15M [facility]; Protocol PRN Reason: Seizure activity Metoclopramide HCl (Reglan) 5 mg PO DAILY PRN PRN Reason: Constipation Pantoprazole Sodium (Protonix Inj) 40 mg IVP DAILY [facility] Last Admin: 07/05/18 09:57 Dose: 40 mg Phenytoin (Dilantin) 100 mg PO TID [facility] Last Admin: 07/05/18 14:27 Dose: 100 mg - Labs Labs: 07/05/18 06:45 07/05/18 06:45 - Constitutional Appears: No Acute Distress, Chronically Ill - Head Exam Head Exam: ATRAUMATIC, NORMOCEPHALIC - Eye Exam Eye Exam: EOMI, PERRL Pupil Exam: NORMAL ACCOMODATION, PERRL - ENT Exam ENT Exam: Mucous Membranes Moist, Normal External Ear Exam, TM's Normal Bilaterally Additional comments: stoma of neck in place. - Neck Exam Neck Exam: Full ROM, Normal Inspection - Respiratory Exam Respiratory Exam: Decreased Breath Sounds, NORMAL BREATHING PATTERN. absent: Rales, Rhonchi, Wheezes - Cardiovascular Exam Cardiovascular Exam: REGULAR RHYTHM, RRR, +S1, +S2 - GI/Abdominal Exam GI & Abdominal Exam: Soft, Normal Bowel Sounds. 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 Brought to [facility] [place] for worsening SOB and hemoptysis. Found to have increased leukocytosis. CT scan showed bullous emphysema but no infiltrate. Started on IV Vancomycin and Zosyn. Obtain procalcitonin value. Cannot rule out leukocytosis secondary to oropharyngeal SCC. Continue antibiotics in meantime. Pharyngeal mass has increased in size compared to prior studies. Would check urine cultures and urinalysis as well. Carr cultures. Leukocytosis above patient's prior baseline with mild left shift. Cannot rule out an early pneumonia. Also cannot rule out whether increased leukocytosis may be secondary to the patient's recurrent oropharyngeal SCC. Persistent leukocytosis. Remains afebrile. Persistent leukocytosis. Thank you for allowing me to participate in the care of the patient, we will follow with you.
--- NOTE | 2018-07-05 16:52 | CP.PCM.PN ---
Subjective - Date & Time of Evaluation Date of Evaluation: 07/05/18 Time of Evaluation: 16:49 - Subjective Subjective: Hematology/Oncology Progress Note (Dr. Alexandra's Service) Patient seen and assessed at bedside. No acute events noted overnight. Patient continues to endorse that he has trouble sleeping at night but notes that this is normal for him when he is in the hospital. Patient denies any further complaints at this time including fevers, chills, headache, chest pain, SOB, abdominal pain, N/V/D/C, changes in urine output, skin changes or any numbness/tingling of any extremity. Objective - Vital Signs/Intake and Output Vital Signs (last 24 hours): Temp Pulse Resp BP Pulse Ox 97.4 F L 73 20 113/68 98 07/05/18 06:00 07/05/18 14:00 07/05/18 06:00 07/05/18 06:00 07/05/18 06:00 Intake and Output: 07/05/18 07/05/18 06:59 18:59 Intake Total 100 Balance 100 - Medications Medications: Current Medications Acetylcysteine (Acetylcysteine 20%) 4 ml IH TID NAVEEN Last Admin: 07/05/18 13:36 Dose: 4 ml Albuterol/Ipratropium (Duoneb 3 Mg/0.5 Mg (3 Ml) Ud) 3 ml IH TIDRESP PRN PRN Reason: Shortness of Breath Heparin Sodium (Porcine) (Heparin) 5,000 units SC Q8 NAVEEN; Protocol Vancomycin HCl (Vancomycin 1gm) 1 gm in 250 mls @ 167 mls/hr IVPB Q12H [facility]; Protocol Last Admin: 07/05/18 09:57 Dose: 167 mls/hr Piperacillin Sod/Tazobactam Sod (Zosyn 3.375 In Ns 100ml) 100 mls @ 25 mls/hr IVPB Q8 [facility]AVEEN; Protocol Last Admin: 07/05/18 14:30 Dose: 25 mls/hr Sodium Chloride (Sodium Chloride 0.9%) 1,000 mls @ 100 mls/hr IV .Q10H [facility] Last Admin: 07/05/18 14:29 Dose: 100 mls/hr Sodium Chloride (Sodium Chloride 0.9%) 1,000 mls @ 100 mls/hr IV .Q10H [facility] Last Admin: 07/05/18 14:29 Dose: Not Given Levalbuterol HCl (Xopenex) 0.63 mg IH TIDRESP [facility] Last Admin: 07/05/18 13:36 Dose: 0.63 mg Levetiracetam (Keppra) 500 mg PO BID [facility] Last Admin: 07/05/18 09:56 Dose: 500 mg Lorazepam (Ativan) 1 mg IVP Q15M PRN; Protocol PRN Reason: Seizure activity Metoclopramide HCl (Reglan) 5 mg PO DAILY PRN PRN Reason: Constipation Pantoprazole Sodium (Protonix Inj) 40 mg IVP DAILY [facility] Last Admin: 07/05/18 09:57 Dose: 40 mg Phenytoin (Dilantin) 100 mg PO TID [facility] Last Admin: 07/05/18 14:27 Dose: 100 mg - Labs Labs: 07/05/18 06:45 07/05/18 06:45 - Constitutional Appears: No Acute Distress, Cachectic - Head Exam Head Exam: ATRAUMATIC, NORMOCEPHALIC - Eye Exam Eye Exam: EOMI - ENT Exam ENT Exam: Mucous Membranes Moist - Neck Exam Neck Exam: Full ROM. absent: Lymphadenopathy Additional comments: Trach/stoma in place with collar; No visible secretions noted; No signs of clinical infection of surrounding soft tissues - Respiratory Exam Respiratory Exam: Decreased Breath Sounds (R>L; Interval improvement noted), NORMAL BREATHING PATTERN. absent: Accessory Muscle Use, Chest Wall Tenderness, Clear to Ausculation Bilateral, Prolonged Expiratory Phase, Rales, Rhonchi, Wheezes, Respiratory Distress - Cardiovascular Exam Cardiovascular Exam: RRR, +S1, +S2 - GI/Abdominal Exam GI & Abdominal Exam: Soft, Normal Bowel Sounds. 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 Of note, CT soft tissue of neck showed progression of previously recorded laryngeal tumor from 2.5x3.1x6.4cm to now 5.0x6.8x10.3cm. PET/CT reviewed and showed metastatic adenopathy. Patient was also found to bullous emphysema with questionable right sided mucus plug. Radiation Oncology was consulted and patient is undergoing palliative RT. Patient was made DNR/DNI via POLST during this admission. Plan: -PET/CT reviewed and showed metastatic adenopathy -CT soft tissue H/N showed progression of tumor with measurements as stated above -Radiation Oncology consulted, all recommendations appreciated; Continue palliative RT -Pulmonology consulted, all recommendations appreciated; Continue Xopenex, Mucormyst, Duonebs and supplemental O2 as needed -Palliative consultation noted, all recommendations appreciated; Patient made DNR/DNI via POLST -ID consulted, all recommendations appreciated; Currently on Vancomycin and Zosyn -ENT consulted, all recommendations appreciated; Continue with trach care and management as ordered -Continue tube feeds as ordered; 7 cans of Jevity 1.2 per day -Continue intermittent self suctioning -Further recommendations as per Dr. Alexandra/Dr. Chavez Patient seen and case discussed with attending, Dr. Montoya. Ferdinand Hatfield PGY2
[2018-07-06] MEDS: Vancomycin 1gm in NS 250ml 1 GM/250 ML BAG IVPB SCH ×2 (05:33→17:55)
[2018-07-06] MEDS: Levalbuterol 0.63 MG/3 ML Inhal Soln UD IH SCH ×3 (07:52→17:13)
[2018-07-06] MEDS: Acetylcysteine 20% Inhal Soln (4ml) IH SCH ×3 (07:52→17:12)
[2018-07-06 07:55] LABS: BASO # 0.01 K/mm3 (0.0-2.0); EOS # 0.1 (0.0-0.7); EOS % 0.7 % (1.5-5.0); GRAN # 17.72 (1.4-6.5); GRAN % 85.6 % (50.0-68.0); HEMOGLOBIN 8.4 g/dL (14.0-18.0); LYMPH # 1.7 (1.2-3.4); LYMPH % 8.1 % (22.0-35.0); MEAN CELL VOLUME 90.4 fl (80.0-105.0); MEAN CORPUSCULAR HEMOGLOBIN 28.9 pg (25.0-35.0); MEAN CORPUSCULAR HGB CONC 31.9 g/dl (31.0-37.0); MEAN PLATELET VOLUME 10.3 fl (7.0-11.0); MONO # 1.2 (0.1-0.6); MONO % 5.6 % (1.0-6.0); RBC 2.91 10^6/uL (3.5-6.1); RED CELL DISTRIBUTION WIDTH 14.7 % (11.5-14.5); WHITE BLOOD COUNT 20.7 10^3/uL (4.5-11.0)
[2018-07-06 08:42] LABS: ALB/GLOB RATIO 0.7 (1.1-1.8); ALBUMIN 2.4 g/dL (3.0-4.8); ALT/SGPT 41 U/L (7-56); AST/SGOT 75 U/L (17-59); BLOOD UREA NITROGEN 22 mg/dL (7-21); CALCIUM 9.7 mg/dL (8.4-10.5); GFR NON-AFRICAN AMERICAN > 60
[2018-07-06] MEDS: levETIRAcetam 500 mg/5ml UD cups PO SCH ×2 (09:39→17:35)
[2018-07-06] MEDS: Phenytoin 100 mg/4 ml Oral Susp UD PO SCH ×3 (09:40→17:35)
[2018-07-06] MEDS: Potassium Chloride 40 mEq/30 ml LIQ UD PEG SCH ×2 (12:39→14:38)
--- NOTE | 2018-07-06 16:45 | PN ---
DATE This is Mr. Bermeo's hospital visit at the medical floor. For Dr. Alexandra. SUBJECTIVE: Patient is a 73-year-old male hospitalized now, being evaluated for laryngeal CA recurrence status post laryngectomy and tracheostomy with PEG feedings, seizure disorder, now seen resting in bed, being followed by Dr. Goldberg Radiation/Oncology with his nutrition to be continued via his PEG tube. He is non-vocal with patient writing down any complaints at present. He shakes his head no when asked if there is any pain with the patient otherwise in no acute distress. Now made DNR/DNI as per his wishes. OBJECTIVE: VITAL SIGNS: Temperature 98.2, pulse 83, respiration 19, blood pressure 111/57, pulse ox 96%. HEENT: Mucous membranes are moist. White plaques on the tongue. Right neck adenopathy. NECK: Otherwise with tracheostomy. HERAT: Regular rate. LUNGS: Rare rhonchi. ABDOMEN: Soft with viable PEG noted. EXTREMITIES: No edema. SKIN: Warm and dry. NEUROLOGIC: Unable to speak, however, he writes his thoughts intelligibly. LABORATORY DATA: Patient's labs [place] [address], hemoglobin 8.4, hematocrit 26;.3, platelet count 450,000. Potassium of 3.5, to be replenished as per his primary doctor. BUN of 22, creatinine of 1, non-fasting glucose 149, T bili of 2. AST of 75. ASSESSMENT: The assessment for this patient is that of recurrent laryngeal cancer, head and neck cancer status post concurrent radiation chemotherapy status post tracheostomy with percutaneous endoscopic gastrostomy feeding, chronic obstructive pulmonary disease, seizure disorder, emphysema. PLAN: Plan for this patient is to continue present medical regimen with his anemic indices to be monitored and his electrolytes to be corrected. With patient's radiation oncology evaluation as per Dr. Goldberg to progress with further treatment as indicated. We will monitor clinically and with labs. This is a complex patient with a comprehensive medically necessary and appropriate visit carried out in excess of 30 minutes. Jeff Chavez MD
--- NOTE | 2018-07-06 16:56 | CP.PCM.PN ---
<Alexey Mahmood - Last Filed: 07/06/18 17:00> Subjective - Date & Time of Evaluation Date of Evaluation: 07/06/18 Time of Evaluation: 10:00 - Subjective Subjective: Alexey Mahmood DO, PGY-1 Hospitalist Progress Note for Dr. Stacey Cleveland Patient was seen and examined at bedside this AM. He and his family complain of some intermittent hiccups that are bothersome to him. Otherwise, he offers no new complaints. Objective - Vital Signs/Intake and Output Vital Signs (last 24 hours): Temp Pulse Resp BP Pulse Ox 97.6 F 87 18 136/77 100 07/06/18 16:44 07/06/18 16:44 07/06/18 16:44 07/06/18 16:44 07/06/18 16:44 - Medications Medications: Current Medications Acetylcysteine (Acetylcysteine 20%) 4 ml IH TID NAVEEN Last Admin: 07/06/18 13:32 Dose: 4 ml Albuterol/Ipratropium (Duoneb 3 Mg/0.5 Mg (3 Ml) Ud) 3 ml IH TIDRESP PRN PRN Reason: Shortness of Breath Baclofen (Lioresal) 5 mg PO TID PRN PRN Reason: Hiccups Heparin Sodium (Porcine) (Heparin) 5,000 units SC Q8 NAVEEN; Protocol Last Admin: 07/06/18 14:38 Dose: 5,000 units Vancomycin HCl (Vancomycin 1gm) 1 gm in 250 mls @ 167 mls/hr IVPB Q12H [facility]; Protocol Last Admin: 07/06/18 05:33 Dose: 167 mls/hr Sodium Chloride (Sodium Chloride 0.9%) 1,000 mls @ 100 mls/hr IV .Q10H [facility] Last Admin: 07/05/18 14:29 Dose: 100 mls/hr Levalbuterol HCl (Xopenex) 0.63 mg IH TIDRESP [facility] Last Admin: 07/06/18 13:32 Dose: 0.63 mg Levetiracetam (Keppra) 500 mg PO BID [facility] Last Admin: 07/06/18 09:39 Dose: 500 mg Lorazepam (Ativan) 1 mg IVP Q15M PRN; Protocol PRN Reason: Seizure activity Metoclopramide HCl (Reglan) 5 mg PO DAILY PRN PRN Reason: Constipation Pantoprazole Sodium (Protonix Inj) 40 mg IVP DAILY [facility] Last Admin: 07/06/18 09:39 Dose: 40 mg Phenytoin (Dilantin) 100 mg PO TID [facility] Last Admin: 07/06/18 14:38 Dose: 100 mg - Labs Labs: 07/06/18 07:00 07/06/18 07:00 - Constitutional Appears: Non-toxic, No Acute Distress, Cachectic, Chronically Ill - Head Exam Head Exam: ATRAUMATIC, NORMOCEPHALIC - Eye Exam Eye Exam: EOMI, Normal appearance, PERRL - ENT Exam ENT Exam: Mucous Membranes Dry - Neck Exam Neck Exam: Full ROM - Respiratory Exam Respiratory Exam: Decreased Breath Sounds (decreased breath sounds b/l R > L improving). absent: Accessory Muscle Use, Rales, Rhonchi, Wheezes, Respiratory Distress - Cardiovascular Exam Cardiovascular Exam: REGULAR RHYTHM, RRR, +S1, +S2. absent: Gallop, Rubs, Murmur - GI/Abdominal Exam GI & Abdominal Exam: Soft, Normal Bowel Sounds. absent: Guarding, Tenderness Additional comments: PEG tube in place, generally appears malnourished and chronically ill - Extremities Exam Extremities Exam: Full ROM, Normal Inspection - Back Exam Back Exam: NORMAL INSPECTION - Neurological Exam Neurological Exam: Alert, Awake, Oriented x3 - Psychiatric Exam Psychiatric exam: Normal Affect, Normal Mood - Skin Skin Exam: Dry, Intact, Warm Assessment and Plan - Assessment and Plan (Free Text) Assessment: 73 yo M with PMH of oropharyngeal CA (s/p laryngectomy and tracheostomy), COPD, seizure disorder, and arthritis admitted for worsening SOB, secretions, and hemoptysis. He is now stable and has not had any additional apneic episodes. His main complaint this AM is bothersome hiccups. Plan: 1. Worsening Secretions/Hemoptysis Now suctioning himself and clearing secretions well Will start baclofen for bothersome hiccups Continue xopenex Continue suctioning, chest PT as needed Continue tube feeds with aspiration pxns Treating with vanc/zosyn for possible infiltrate/aspiration PNA Per ID recs continue vanc/zosyn 2. COPD CT chest with many emphysematous blebs Continue xopenex, chest PT, pulmonary toilet, suctioning as described above Pulmonology following, recs appreciated 3. Hypercalcemia Likely 2/2 underlying malignancy Single dose of lasix given on admission Ca down to 9.7 today Continue NS @ 100 cc/hr Continue to monitor Ca level closely 4. Hypokalemia Resolved, continue to monitor 5. Hx of oropharyngeal SCC Likely 2/2 heavy smoking hx Has hx of laryngectomy and tracheostomy Palliative radiation per Dr. Goldberg Palliative care, Dr. Goldberg, and Dr. Alexandra following, recs appreciated 6. Hx of seizure disorder Continue keppra and dilantin GI/DVT PPX: protonix, SCD, SC heparin DNR/DNI Tube feedings w/aspiration pxns, adjustments per plowing gardens Monitor on remote tele Case and plan reviewed and discussed with my attending Dr. Stacey Mahmood DO IM Resident PGY-1 Pager: [phone] <Radha Cleveland R - Last Filed: 07/07/18 07:46> Objective - Vital Signs/Intake and Output Vital Signs (last 24 hours): Temp Pulse Resp BP Pulse Ox 99.9 F H 101 H 20 125/78 94 L 07/07/18 03:00 07/07/18 06:02 07/06/18 23:50 07/06/18 23:50 07/06/18 23:50 Intake and Output: 07/07/18 07/07/18 06:59 18:59 Intake Total 2320 Output Total 800 Balance 1520 - Medications Medications: Current Medications Acetylcysteine (Acetylcysteine 20%) 4 ml IH TID NAVEEN Last Admin: 07/06/18 17:12 Dose: 4 ml Albuterol/Ipratropium (Duoneb 3 Mg/0.5 Mg (3 Ml) Ud) 3 ml IH TIDRESP PRN PRN Reason: Shortness of Breath Last Admin: 07/06/18 21:46 Dose: 3 ml Baclofen (Lioresal) 5 mg PO TID PRN PRN Reason: Hiccups Heparin Sodium (Porcine) (Heparin) 5,000 units SC Q8 [facility]AVEEN; Protocol Last Admin: 07/07/18 05:06 Dose: 5,000 units Vancomycin HCl (Vancomycin 1gm) 1 gm in 250 mls @ 167 mls/hr IVPB Q12H [facility]; Protocol Last Admin: 07/07/18 05:06 Dose: 167 mls/hr Sodium Chloride (Sodium Chloride 0.9%) 1,000 mls @ 100 mls/hr IV .Q10H [facility] Last Admin: 07/07/18 03:16 Dose: 100 mls/hr Levalbuterol HCl (Xopenex) 0.63 mg IH TIDRESP [facility] Last Admin: 07/06/18 17:13 Dose: 0.63 mg Levetiracetam (Keppra) 500 mg PO BID [facility] Last Admin: 07/06/18 17:35 Dose: 500 mg Lorazepam (Ativan) 1 mg IVP Q15M PRN; Protocol PRN Reason: Seizure activity Metoclopramide HCl (Reglan) 5 mg PO DAILY PRN PRN Reason: Constipation Pantoprazole Sodium (Protonix Inj) 40 mg IVP DAILY [facility] Last Admin: 07/06/18 09:39 Dose: 40 mg Phenytoin (Dilantin) 100 mg PO TID [facility] Last Admin: 07/06/18 17:35 Dose: 100 mg - Labs Labs: 07/06/18 07:00 07/06/18 07:00 Attending/Attestation - Attestation I have personally seen and examined this patient.: Yes I have fully participated in the care of the patient.: Yes I have reviewed all pertinent clinical information, including history, physical exam and plan: Yes Notes (Text): Patient seen and examined by me with resident 10:50AM on 07/06/18 with resident. Case including HPI, physical exam, and assessment and plan discussed with resident. Agree with above with following additions/corrections. 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 Patient states he feels better. Patient continues to mouth his words and writes on paper to communicate. Patient's and cousin at bedside today. Per , she is unable to take care of her at home. Patient states secretions have improved. Patient does not feel short of breath. Hemoptysis has resolved. No headaches or dizziness. No fevers or chills. No nausea, vomiting, or abdominal pain. Denies dysuria today. Physical exam: General: Awake and alert lying in bed in no acute distress, cachectic appearing HEENT: Normocephalic atraumatic. Pupils equal reactive. No scleral icterus. Oropharynx is pink and moist. Positive trach collar in place, no signs of infection. Cardiovascular: Normal S1, S2. No murmurs, rubs, or gallops appreciated Pulmonary: Normal respiratory effort. Decreased breath sounds. Coarse breath sounds. No rales or wheezing appreciated. Gastrointestinal: Soft, nondistended. Nontender. Positive bowel sounds all 4 quadrants, no guarding.Peg tube in place with no signs of infection. Musculoskeletal: Moves all extremities, no calf tenderness.No edema appreciated Central nervous system: AAOx3 Dermatologic: Skin warm and dry. 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 1. Hemoptysis. Increased secretions. Continues to improve. May be secondary to worsening of tumor versus tracheostomy closure. Continue nebulizer treatments, Vancomycin, and Zosyn. Continue with chest PT. Continue suctioning. Blood cultures with no growth. Leukocytosis slowly uptrending. Patient is afebrile. Tracheostomy was changed 07/03/2018. ID following, recommendations appreciated. ENT following, recommendations appreciated. Pulmonary following, recommendations appreciated. 2. Leukocytosis. Continues to trend up. May be secondary to malignancy. Blood cultures with no growth. Patient afebrile. Continue Vanco and Zosyn for now. Pending urinalysis and urine culture. 3. Dysuria. Pending urinalysis and urine culture. 4. Emphysema. Chest CT without contrast radiologist showed bullous emphysema. Continue nebulizer treatments and chest PT. 5. Hypercalcemia. Likely secondary to malignancy. Resolved with IV fluids. Continue to monitor. 6. Hypokalemia. Replace potassium. Continue to monitor. 7. History of oropharyngeal cancer. CT neck per radiologist shows significant increase in size of the right lower pharyngeal soft tissue mass with occlusion of the area worsens and to prior examination; overall extent in size of the mass has increased; tracheostomy in place. Hematology/oncology following, recommendations appreciated. Radiation oncology consulted for palliative radiation. Patient is DNR/DNI. 8. History of seizure disorder. Continue Keppra and phenytoin. 9. GI/DVT prophylaxis. Protonix/SCDs. 10. Advanced directive. Patient has a POLST. Patient is DNR/DNI. Case discussed in detail with the patient and patient's at bedside with patient's permission regarding current diagnosis and treatment plan. All questions answered.
--- NOTE | 2018-07-06 17:08 | CP.PCM.PN ---
Subjective - Date & Time of Evaluation Date of Evaluation: 07/06/18 Time of Evaluation: 15:15 - Subjective Subjective: Infectious Disease Follow Up: July 06, 2018 73M w/ a complex oncology history; patient was 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 Subsequently in 2016 patient was found to have recurrence of throat CA. He presented most recently in 05/2018 w/ large soft tissue mass in oropharyngeal region; during this visit patient received PEG tube placement. He was to follow up with heme/onc Dr. Cleveland however reported he was unable to make appt due to poor transportation. Patient reports he currently not undergoing radiation/chemotherapy at this time. Remainder of PMHx is significant for COPD, Seizure, and arthritis. He presented to [facility] ED 07/02 w/ complaints of SOB, Hemoptysis, worsening secretions over the past month. Patient reports hemoptysis as light pink tinged mucopurlent sputum does not report overtly bloody or clotted sputum. He says his SOB feels as if he is not getting enough air through his tracheostomy. Patient reported he sees ENT Dr. Tapia for trach management. ID called for evaluation of potential HCAP. CT Chest showing bullous emphysema but no infiltrate. Cannot rule out early infiltrate. Patient still with leukocytosis. On trach collar with supplemental O2. Patient is awake, alert, and answer questions appropriately. He states that he is feeling better today. Patient states that is less SOB and breathing easier. Objective - Vital Signs/Intake and Output Vital Signs (last 24 hours): Temp Pulse Resp BP Pulse Ox 97.6 F 87 18 136/77 100 07/06/18 16:44 07/06/18 16:44 07/06/18 16:44 07/06/18 16:44 07/06/18 16:44 - Medications Medications: Current Medications Acetylcysteine (Acetylcysteine 20%) 4 ml IH TID NAVEEN Last Admin: 07/06/18 13:32 Dose: 4 ml Albuterol/Ipratropium (Duoneb 3 Mg/0.5 Mg (3 Ml) Ud) 3 ml IH TIDRESP PRN PRN Reason: Shortness of Breath Baclofen (Lioresal) 5 mg PO TID PRN PRN Reason: Hiccups Heparin Sodium (Porcine) (Heparin) 5,000 units SC Q8 [facility]; Protocol Last Admin: 07/06/18 14:38 Dose: 5,000 units Vancomycin HCl (Vancomycin 1gm) 1 gm in 250 mls @ 167 mls/hr IVPB Q12H [facility]; Protocol Last Admin: 07/06/18 05:33 Dose: 167 mls/hr Sodium Chloride (Sodium Chloride 0.9%) 1,000 mls @ 100 mls/hr IV .Q10H [facility] Last Admin: 07/05/18 14:29 Dose: 100 mls/hr Levalbuterol HCl (Xopenex) 0.63 mg IH TIDRESP [facility] Last Admin: 07/06/18 13:32 Dose: 0.63 mg Levetiracetam (Keppra) 500 mg PO BID [facility] Last Admin: 07/06/18 09:39 Dose: 500 mg Lorazepam (Ativan) 1 mg IVP Q15M PRN; Protocol PRN Reason: Seizure activity Metoclopramide HCl (Reglan) 5 mg PO DAILY PRN PRN Reason: Constipation Pantoprazole Sodium (Protonix Inj) 40 mg IVP DAILY [facility] Last Admin: 07/06/18 09:39 Dose: 40 mg Phenytoin (Dilantin) 100 mg PO TID [facility] Last Admin: 07/06/18 14:38 Dose: 100 mg - Labs Labs: 07/06/18 07:00 07/06/18 07:00 - Constitutional Appears: No Acute Distress, Chronically Ill - Head Exam Head Exam: ATRAUMATIC, NORMOCEPHALIC - Eye Exam Eye Exam: EOMI, PERRL Pupil Exam: NORMAL ACCOMODATION, PERRL - ENT Exam ENT Exam: Mucous Membranes Moist, Normal External Ear Exam, TM's Normal Bilaterally Additional comments: stoma of neck in place. - Neck Exam Neck Exam: Full ROM, Normal Inspection - Respiratory Exam Respiratory Exam: Decreased Breath Sounds, NORMAL BREATHING PATTERN. absent: Rales, Rhonchi, Wheezes - Cardiovascular Exam Cardiovascular Exam: REGULAR RHYTHM, RRR, +S1, +S2 - GI/Abdominal Exam GI & Abdominal Exam: Soft, Normal Bowel Sounds. 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 Brought to [facility] for worsening SOB and hemoptysis. Found to have increased leukocytosis. CT scan showed bullous emphysema but no infiltrate. Started on IV Vancomycin and Zosyn. Obtain procalcitonin value. Cannot rule out leukocytosis secondary to oropharyngeal SCC. Continue antibiotics in meantime. Pharyngeal mass has increased in size compared to prior studies. Rec eived 3 days of Zosyn. Clinically the patient appears better but still with leukocytosis. Would check urine cultures and urinalysis as well. Carr cultures. Leukocytosis above patient's prior baseline with mild left shift. Cannot rule out an early pneumonia. Also cannot rule out whether increased leukocytosis may be secondary to the patient's recurrent oropharyngeal SCC. Persistent leukocytosis. Remains afebrile. Persistent leukocytosis. Given 3 days of Zosyn. Still on Vancomycin IV. Monitor patient at this point. Cultures negative. No clear explanation for leukocytosis at this point. Thank you for allowing me to participate in the care of the patient, we will follow with you.
[2018-07-06] MEDS: Sodium Chloride 0.9% 1,000 ML IV SCH (17:35)
[2018-07-06] MEDS: Albuterol-Ipratrop 3 mg / 0.5 (3 ml) UD IH PRN (21:46)
[2018-07-07 00:22] LABS: URINE BILIRUBIN NEGATIVE (NEGATIVE); URINE BLOOD NEGATIVE (NEGATIVE); URINE GLUCOSE (UA) 250 mg/dL (NEGATIVE); URINE LEUKOCYTE ESTERASE SMALL Leu/uL (NEGATIVE); URINE PROTEIN NEGATIVE mg/dL (<30 mg/dL); URINE UROBILINOGEN 0.2 E.U./dL (<1 E.U./dL)
[2018-07-07 00:36] LABS: URINE APPEARANCE CLEAR (CLEAR); URINE COLOR YELLOW (YELLOW)
[2018-07-07 00:47] LABS: URINE BACTERIA MOD (NEG); URINE CALCIUM OXALATE CRYSTALS TRACE /hpf; URINE EPITHELIAL CELLS 0 - 2 /hpf (0-5); URINE WBC 15 - 20 /hpf (0-6)
[2018-07-07] MEDS: Sodium Chloride 0.9% 1,000 ML IV SCH ×2 (03:16→16:04)
[2018-07-07] MEDS: Vancomycin 1gm in NS 250ml 1 GM/250 ML BAG IVPB SCH ×2 (05:06→17:26)
[2018-07-07] MEDS: Acetylcysteine 20% Inhal Soln (4ml) IH SCH ×4 (07:43→20:50)
[2018-07-07] MEDS: Levalbuterol 0.63 MG/3 ML Inhal Soln UD IH SCH ×3 (07:43→20:50)
[2018-07-07] MEDS ORDERED: Potassium Chloride 40 mEq/30 ml LIQ UD PEG SCH (07:45)
[2018-07-07 08:13] LABS: BASO # 0.02 K/mm3 (0.0-2.0); BASO % 0.1 % (0.0-3.0); EOS # 0.1 (0.0-0.7); EOS % 0.5 % (1.5-5.0); GRAN # 20.67 (1.4-6.5); GRAN % 87.9 % (50.0-68.0); HEMOGLOBIN 7.9 g/dL (14.0-18.0); LYMPH # 1.5 (1.2-3.4); LYMPH % 6.2 % (22.0-35.0); MEAN CELL VOLUME 91.8 fl (80.0-105.0); MEAN CORPUSCULAR HEMOGLOBIN 29.4 pg (25.0-35.0); MEAN PLATELET VOLUME 10.5 fl (7.0-11.0); MONO # 1.3 (0.1-0.6); MONO % 5.3 % (1.0-6.0); RBC 2.69 10^6/uL (3.5-6.1); RED CELL DISTRIBUTION WIDTH 15.3 % (11.5-14.5); WHITE BLOOD COUNT 23.5 10^3/uL (4.5-11.0)
[2018-07-07 08:32] LABS: ALB/GLOB RATIO 0.7 (1.1-1.8); ALBUMIN 2.2 g/dL (3.0-4.8); ALT/SGPT 41 U/L (7-56); AST/SGOT 37 U/L (17-59); BLOOD UREA NITROGEN 21 mg/dL (7-21); CALCIUM 9.5 mg/dL (8.4-10.5); GFR NON-AFRICAN AMERICAN > 60
[2018-07-07] MEDS: Phenytoin 100 mg/4 ml Oral Susp UD PO SCH ×3 (09:50→17:26)
[2018-07-07] MEDS: levETIRAcetam 500 mg/5ml UD cups PO SCH ×2 (09:50→17:26)
--- NOTE | 2018-07-07 14:14 | CP.PCM.PN ---
<Alexey Mahmood - Last Filed: 07/07/18 14:21> Subjective - Date & Time of Evaluation Date of Evaluation: 07/07/18 Time of Evaluation: 09:30 - Subjective Subjective: Alexey Mahmood DO, PGY-1 Hospitalist Progress Note for Dr. Stacey Cleveland Patient was seen and examined at bedside this AM. He reports feeling better this AM and states the hiccups have improved. Objective - Vital Signs/Intake and Output Vital Signs (last 24 hours): Temp Pulse Resp BP Pulse Ox 99.2 F 101 H 20 113/62 98 07/07/18 06:00 07/07/18 06:02 07/07/18 06:00 07/07/18 06:00 07/07/18 06:00 Intake and Output: 07/07/18 07/07/18 06:59 18:59 Intake Total 2320 Output Total 800 Balance 1520 - Medications Medications: Current Medications Acetylcysteine (Acetylcysteine 20%) 4 ml IH TID [facility] Last Admin: 07/07/18 13:32 Dose: 4 ml Albuterol/Ipratropium (Duoneb 3 Mg/0.5 Mg (3 Ml) Ud) 3 ml IH TIDRESP PRN PRN Reason: Shortness of Breath Last Admin: 07/06/18 21:46 Dose: 3 ml Baclofen (Lioresal) 5 mg PO TID PRN PRN Reason: Hiccups Heparin Sodium (Porcine) (Heparin) 5,000 units SC Q8 [facility]; Protocol Last Admin: 07/07/18 13:50 Dose: 5,000 units Vancomycin HCl (Vancomycin 1gm) 1 gm in 250 mls @ 167 mls/hr IVPB Q12H [facility]; Protocol Last Admin: 07/07/18 05:06 Dose: 167 mls/hr Sodium Chloride (Sodium Chloride 0.9%) 1,000 mls @ 100 mls/hr IV .Q10H [facility] Last Admin: 07/07/18 03:16 Dose: 100 mls/hr Levalbuterol HCl (Xopenex) 0.63 mg IH TIDRESP [facility] Last Admin: 07/07/18 13:30 Dose: 0.63 mg Levetiracetam (Keppra) 500 mg PO BID [facility] Last Admin: 07/07/18 09:50 Dose: 500 mg Lorazepam (Ativan) 1 mg IVP Q15M PRN; Protocol PRN Reason: Seizure activity Metoclopramide HCl (Reglan) 5 mg PO DAILY PRN PRN Reason: Constipation Pantoprazole Sodium (Protonix Inj) 40 mg IVP DAILY [facility] Last Admin: 07/07/18 09:50 Dose: 40 mg Phenytoin (Dilantin) 100 mg PO TID [facility] Last Admin: 07/07/18 13:51 Dose: 100 mg - Labs Labs: 07/07/18 07:30 07/07/18 07:30 - Constitutional Appears: Non-toxic, No Acute Distress - Head Exam Head Exam: ATRAUMATIC, NORMOCEPHALIC - Eye Exam Eye Exam: EOMI, Normal appearance, PERRL - ENT Exam ENT Exam: Mucous Membranes Moist - Neck Exam Neck Exam: Full ROM Additional comments: tracheostomy in place, clean, dry, intact - Respiratory Exam Respiratory Exam: Clear to Ausculation Bilateral, NORMAL BREATHING PATTERN. absent: Rales, Rhonchi, Wheezes - Cardiovascular Exam Cardiovascular Exam: REGULAR RHYTHM, RRR, +S1, +S2. absent: Gallop, Rubs, Murmur - GI/Abdominal Exam GI & Abdominal Exam: Soft, Normal Bowel Sounds. absent: Guarding, Tenderness Additional comments: peg tube in place, clean, dry, intact - Extremities Exam Extremities Exam: Full ROM, Normal Inspection - Back Exam Back Exam: NORMAL INSPECTION - Neurological Exam Neurological Exam: Alert, Awake, Oriented x3 - Psychiatric Exam Psychiatric exam: Normal Affect, Normal Mood - Skin Skin Exam: Dry, Intact, Warm Assessment and Plan - Assessment and Plan (Free Text) Assessment: 73 yo M with PMH of oropharyngeal CA (s/p laryngectomy and tracheostomy), COPD, seizure disorder, and arthritis admitted for worsening SOB, secretions, and hemo ptysis. He is now stable and has not had any additional apneic episodes. He states the hiccup episodes are improving with baclofen but that he feels sleepier. Plan: 1. Worsening Secretions/Hemoptysis Now suctioning himself and clearing secretions well Continue baclofen PRN Continue xopenex PRN Continue suctioning, chest PT PRN Continue tube feeds with aspiration pxns Per ID recs, continue vanc as prior infiltrate cannot exclude underlying aspiration PNA, received 3 days of zosyn 2. Persistent leukocytosis May be 2/2 underlying malignancy vs occult infectious process UA with pyuria, small leukocyte esterase Urine cx sent Per ID recs, continue vanc and continue to monitor 3. COPD CT chest with many emphysematous blebs Continue xopenex, chest PT, pulmonary toilet, suctioning as described above Pulmonology following, recs appreciated 4. Hypercalcemia Likely 2/2 underlying malignancy Single dose of lasix given on admission Ca is down trending and is down to 9.5 today Continue NS @ 100 cc/hr Continue to monitor Ca level closely 5. Hypokalemia Resolved, continue to monitor 6. Hx of oropharyngeal SCC Likely 2/2 heavy smoking hx Has hx of laryngectomy and tracheostomy Palliative radiation per Dr. Goldberg Palliative care, Dr. Goldberg, and Dr. Alexandra following, recs appreciated 7. Hx of seizure disorder Continue keppra and dilantin GI/DVT PPX: protonix, SCD, SC heparin DNR/DNI Tube feedings w/aspiration pxns, adjustments per personal care service provider Monitor on remote tele Case and plan reviewed and discussed with my attending Dr. Stacey Mahmood DO IM Resident PGY-1 Pager: [phone] <Radha Cleveland R - Last Filed: 07/09/18 13:46> Objective - Vital Signs/Intake and Output Vital Signs (last 24 hours): Temp Pulse Resp BP Pulse Ox 98.8 F 94 H 20 134/75 99 07/09/18 07:54 07/09/18 07:54 07/09/18 07:54 07/09/18 07:54 07/09/18 07:54 Intake and Output: 07/09/18 07/09/18 06:59 18:59 Intake Total 1200 Output Total 925 Balance 275 - Medications Medications: Current Medications Acetaminophen (Tylenol 650mg/20.3ml Solution Ud) 650 mg PEG Q6H PRN PRN Reason: Temperature Last Admin: 07/08/18 00:19 Dose: 650 mg Acetylcysteine (Acetylcysteine 20%) 4 ml IH TID [facility]AVEEN Last Admin: 07/09/18 07:55 Dose: 4 ml Albuterol/Ipratropium (Duoneb 3 Mg/0.5 Mg (3 Ml) Ud) 3 ml IH TIDRESP PRN PRN Reason: Shortness of Breath Last Admin: 07/06/18 21:46 Dose: 3 ml Baclofen (Lioresal) 5 mg PO TID PRN PRN Reason: Hiccups Guaifenesin/Dextromethorphan (Robitussin Dm) 10 ml PO Q4H PRN PRN Reason: Cough Heparin Sodium (Porcine) (Heparin) 5,000 units SC Q8 [facility]; Protocol Last Admin: 07/09/18 05:21 Dose: 5,000 units Sodium Chloride (Sodium Chloride 0.9%) 1,000 mls @ 100 mls/hr IV .Q10H [facility] Last Admin: 07/07/18 16:04 Dose: 100 mls/hr Meropenem/Sodium Chloride (Merrem Iv 500 Mg/Ns 50 Ml) 500 mg in 50 mls @ 100 mls/hr IVPB Q12 [facility]; Protocol Last Admin: 07/09/18 11:09 Dose: 100 mls/hr Levalbuterol HCl (Xopenex) 0.63 mg IH TIDRESP [facility] Last Admin: 07/09/18 07:56 Dose: 0.63 mg Levetiracetam (Keppra) 500 mg PO BID [facility] Last Admin: 07/09/18 11:09 Dose: 500 mg Lorazepam (Ativan) 1 mg IVP Q15M PRN; Protocol PRN Reason: Seizure activity Metoclopramide HCl (Reglan) 5 mg PO DAILY PRN PRN Reason: Constipation Pantoprazole Sodium (Protonix Susp) 40 mg PEG DAILY [facility] Last Admin: 07/09/18 11:09 Dose: 40 mg Phenytoin (Dilantin) 100 mg PO TID [facility] Last Admin: 07/09/18 11:09 Dose: 100 mg - Labs Labs: 07/09/18 05:30 07/09/18 05:30 Attending/Attestation - Attestation I have personally seen and examined this patient.: Yes I have fully participated in the care of the patient.: Yes I have reviewed all pertinent clinical information, including history, physical exam and plan: Yes Notes (Text): Patient seen and examined by me with resident 9:50AM on 07/07/18 with resident. Case including HPI, physical exam, andassessment and plan discussed with resident. Agree with above with following additions/corrections. 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 Patient states he is feeling ok. Patient mouths his words and writes on paper to communicate. Feels more tired today. Complains of some dysuria today. States hiccups are much better. Secretions have improved. Patient does not feel short of breath. Hemoptysis improved. No headaches or dizziness. No nausea, vomiting, or abdominal pain. Patient had low grade fever over night. Physical exam: General: Awake and alert lying in bed in no acute distress, cachectic appearing HEENT: Normocephalic atraumatic. Pupils equal reactive. No scleral icterus. Oropharynx is pink and moist. Positive trach collar in place, no signs of infection. Cardiovascular: Normal S1, S2. No murmurs, rubs, or gallops appreciated Pulmonary: Normal respiratory effort. Decreased breath sounds. Coarse breath sounds. No rales or wheezing appreciated. Gastrointestinal: Soft, nondistended. Nontender. Positive bowel sounds all 4 quadrants, no guarding. Peg tube in place with no signs of infection. Musculoskeletal: Moves all extremities, no calf tenderness. No edema appreciated Central nervous system: AAOx3 Dermatologic: Skin warm and dry. 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 1. UTI. UA shows infection. Patient with dysuria. Urine culture pending. Patient with low grade fever overnight. Dicussed with ID, patient started on Merrem. 2. Leukocytosis. Uptrending. May be multifactorial secondary to malignancy and now likely UTI. Blood cultures with no growth. Patient with low grade fever overnight. Urine culture pending. Continue Vanco. Merrem started. ID following, recommendations appreciated 3. Hemoptysis. Increased secretions. Improving. May be secondary to worsening of tumor versus tracheostomy closure. Continue nebulizer treatments. Continue with chest PT. Continue suctioning. Blood cultures with no growth. Leukocytosis slowly uptrending. Patient with low grade fever overnight. Tracheostomy was changed 07/03/2018. ID following, recommendations appreciated. ENT following, recommendations appreciated. Pulmonary following, recommendations appreciated. 4. Emphysema. Chest CT without contrast radiologist showed bullous emphysema. Continue nebulizer treatments and chest PT. 5. Hypercalcemia. Likely secondary to malignancy. Resolved with IV fluids. Continue to monitor. 6. Hypokalemia. Replace potassium. Continue to monitor. 7. History of oropharyngeal cancer. CT neck per radiologist shows significant increase in size of the right lower pharyngeal soft tissue mass with occlusion of the area worsens and to prior examination; overall extent in size of the mass has increased; tracheostomy in place. Hematology/oncology following, recommendations appreciated. Radiation oncology consulted for palliative radiation. Patient is DNR/DNI. 8. History of seizure disorder. Continue Keppra and phenytoin. 9. Hiccups. Baclofen prn. 10. GI/DVT prophylaxis. Protonix/SCDs. 11. Advanced directive. Patient has a POLST. Patient is DNR/DNI Case discussed in detail with the patient regarding current diagnosis and treatment plan. All questions answered.
--- NOTE | 2018-07-07 18:25 | CP.PCM.PN ---
Subjective - Date & Time of Evaluation Date of Evaluation: 07/07/18 Time of Evaluation: 16:30 - Subjective Subjective: Infectious Disease Follow Up: July 07, 2018 73M w/ a complex oncology history; patient was 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 Subsequently in 2016 patient was found to have recurrence of throat CA. He presented most recently in 05/2018 w/ large soft tissue mass in oropharyngeal region; during this visit patient received PEG tube placement. He was to follow up with heme/onc Dr. Cleveland however reported he was unable to make appt due to poor transportation. Patient reports he currently not undergoing radiation/chemotherapy at this time. Remainder of PMHx is significant for COPD, Seizure, and arthritis. He presented to [facility] 07/02 w/ complaints of SOB, Hemoptysis, worsening secretions over the past month. Patient reports hemoptysis as light pink tinged mucopurlent sputum does not report overtly bloody or clotted sputum. He says his SOB feels as if he is not getting enough air through his tracheostomy. Patient reported he sees ENT Dr. Tapia for trach management. ID called for evaluation of potential HCAP. CT Chest showing bullous emphysema but no infiltrate. Cannot rule out early infiltrate. Patient still with leukocytosis. On trach collar with supplemental O2. Patient is awake, alert, and answer questions appropriately. He states that he is feeling better today. Patient states that is less SOB and breathing easier. Noted that the patient had fever up to 100.4 F overnight. Objective - Vital Signs/Intake and Output Vital Signs (last 24 hours): Temp Pulse Resp BP Pulse Ox 98.6 F 101 H 20 145/76 96 07/07/18 16:41 07/07/18 18:00 07/07/18 16:41 07/07/18 16:41 07/07/18 16:41 Intake and Output: 07/07/18 07/07/18 06:59 18:59 Intake Total 2320 Output Total 800 Balance 1520 - Medications Medications: Current Medications Acetylcysteine (Acetylcysteine 20%) 4 ml IH TID NAVEEN Last Admin: 07/07/18 13:32 Dose: 4 ml Albuterol/Ipratropium (Duoneb 3 Mg/0.5 Mg (3 Ml) Ud) 3 ml IH TIDRESP PRN PRN Reason: Shortness of Breath Last Admin: 07/06/18 21:46 Dose: 3 ml Baclofen (Lioresal) 5 mg PO TID PRN PRN Reason: Hiccups Heparin Sodium (Porcine) (Heparin) 5,000 units SC Q8 [facility]; Protocol Last Admin: 07/07/18 13:50 Dose: 5,000 units Vancomycin HCl (Vancomycin 1gm) 1 gm in 250 mls @ 167 mls/hr IVPB Q12H [facility]; Protocol Last Admin: 07/07/18 17:26 Dose: 167 mls/hr Sodium Chloride (Sodium Chloride 0.9%) 1,000 mls @ 100 mls/hr IV .Q10H [facility] Last Admin: 07/07/18 16:04 Dose: 100 mls/hr Meropenem/Sodium Chloride (Merrem Iv 500 Mg/Ns 50 Ml) 500 mg in 50 mls @ 100 mls/hr IVPB Q12 [facility]; Protocol Levalbuterol HCl (Xopenex) 0.63 mg IH TIDRESP [facility] Last Admin: 07/07/18 13:30 Dose: 0.63 mg Levetiracetam (Keppra) 500 mg PO BID [facility] Last Admin: 07/07/18 17:26 Dose: 500 mg Lorazepam (Ativan) 1 mg IVP Q15M PRN; Protocol PRN Reason: Seizure activity Metoclopramide HCl (Reglan) 5 mg PO DAILY PRN PRN Reason: Constipation Pantoprazole Sodium (Protonix Inj) 40 mg IVP DAILY [facility] Last Admin: 07/07/18 09:50 Dose: 40 mg Phenytoin (Dilantin) 100 mg PO TID [facility] Last Admin: 07/07/18 17:26 Dose: 100 mg - Labs Labs: 07/07/18 07:30 07/07/18 07:30 - Constitutional Appears: Non-toxic, No Acute Distress, Chronically Ill - Head Exam Head Exam: ATRAUMATIC, NORMOCEPHALIC - Eye Exam Eye Exam: EOMI, PERRL Pupil Exam: NORMAL ACCOMODATION, PERRL - ENT Exam ENT Exam: Mucous Membranes Moist, Normal External Ear Exam, TM's Normal Bilaterally - Neck Exam Neck Exam: Full ROM Additional comments: stoma in place. - Respiratory Exam Respiratory Exam: Clear to Ausculation Bilateral, NORMAL BREATHING PATTERN. absent: Rales, Rhonchi, Wheezes - Cardiovascular Exam Cardiovascular Exam: REGULAR RHYTHM, RRR, +S1, +S2 - GI/Abdominal Exam GI & Abdominal Exam: Soft, Normal Bowel Sounds. absent: Distended, Tenderness Additional comments: PEG in place. - Extremities Exam Extremities Exam: Full ROM, Normal Inspection - Neurological Exam Neurological Exam: Alert, Awake, CN II-XII Intact, Oriented x3 - Psychiatric Exam Psychiatric exam: Normal Affect, Normal Mood - Skin Skin Exam: Dry, Intact, Warm Additional comments: As above. Assessment and Plan - Assessment and Plan (Free Text) Assessment: 73 yo male with PMHx of oropharyngeal SCC s/p total larygnectomy with trach but had recurrence. Brought to [facility] for worsening SOB and hemoptysis. Found to have increased leukocytosis. CT scan showed bullous emphysema but no infiltrate. Started on IV Vancomycin and Zosyn. Obtain procalcitonin value. Cannot rule out leukocytosis secondary to oropharyngeal SCC. Continue antibiotics in meantime. Pharyngeal mass has increased in size compared to prior studies. Received 3 days of Zosyn. Clinically the patient appears better but still with leukocytosis. Would check urine cultures and urinalysis as well. Carr cultures. Leukocytosis above patient's prior baseline with mild left shift. Cannot rule out an early pneumonia. Also cannot rule out whether increased leukocytosis may be secondary to the patient's recurrent oropharyngeal SCC. Persistent leukocytosis. Remains afebrile. Persistent leukocytosis. Given 3 days of Zosyn. Still on Vancomycin IV. Monitor patient at this point. Cultures negative. No clear explanation for leukocytosis at this point. Leukocytosis increasing today. Fever of 100.4 F overnight. Meropenem started today. Thank you for allowing me to participate in the care of the patient, we will follow with you.
[2018-07-07] MEDS ORDERED: guaiFENesin DM 200 mg-20 mg/10 ml UD PO PRN (20:46)
[2018-07-07] MEDS: MEROPENEM 500 MG in NS 500 MG/50 ML BAG IVPB SCH (21:27)
--- NOTE | 2018-07-07 23:09 | PN ---
DATE: 07/07/2018 This is Mr. Mino Bermeo's hospital visit on the medical floor. For Dr. Alexandra. SUBJECTIVE: The patient is a 73-year-old male, seen lying awake in bed, having his tube feeding as per nursing, in no acute distress. He is nonverbal as he is status post laryngectomy with tracheostomy with laryngeal recurrence of his cancer. At present, he is being followed by Dr. Goldberg, Radiation Oncology, in no apparent distress. Of note, his white blood cell count is mildly elevated over the past few days from its previous baseline and is now over 23,000 with the hemoglobin now slowly dropping to 7.9, for which we will type and cross and hold blood for consideration of transfusion in the morning, should it be indicated. The patient is being followed by Dr. Dunn, infectious disease education consultant with his leukocytosis persistent and no correct explanation available except for his malignancy as he is on IV antibiotics with appropriate coverage. PHYSICAL EXAMINATION: VITAL SIGNS: Temperature 98.6, pulse 94, respirations 20, blood pressure 145/76, pulse ox 96%. HEENT: Tongue is moist. NECK: Right neck adenopathy with tracheostomy with dressing on the neck. HERAT: Regular rate. LUNGS: Occasional rhonchi. ABDOMEN: Soft with viable PEG noted. EXTREMITIES: No edema. Full range of motion. SKIN: Warm and dry. NEUROLOGIC: Unable to speak, but awake and alert. LABORATORY DATA: The patient's labs were done. White blood cell count is 23,500 up from 17,400 four days prior. Hemoglobin is now at 7.9 with a value of 8.4 yesterday with no active bleeding appreciated. Hematocrit of 24.7, platelet count 422,000. His chem metabolic panel showed a chloride of 117, otherwise blood sugar 283, T. bili of 1.7, total protein of 5.5. As per Dr. Dunn, vancomycin trough level was 15.3 two days prior. ASSESSMENT: The assessment for this patient is that of recurrent laryngeal cancer, head and neck cancer with treatment as per education consultant's recommendations, status post tracheostomy, status post percutaneous endoscopic gastrostomy tube for feedings, chronic obstructive pulmonary disease, seizure disorder, emphysema, deconditioning, leukocytosis, anemia of chronic disease. PLAN: Plan for this patient is to check labs in the a.m. Type and cross 2 units of packed red blood cells, to be transfused as per Dr. Alexandra's recommendation. We will also continue his present medical regimen with the prognosis for this patient guarded. This is a complex patient with a comprehensive medically necessary and appropriate visit carried out in excess of 30 minutes. Jeff Chavez MD
[2018-07-08] MEDS: Acetaminophen 650mg/20.3ml solution UD PEG PRN (00:19)
[2018-07-08 02:09] LABS: PHENYTOIN,FREE 0.5 mg/L (1.0-2.0)
[2018-07-08] MEDS: Vancomycin 1gm in NS 250ml 1 GM/250 ML BAG IVPB SCH (05:23)
[2018-07-08 06:32] LABS: BASO # 0.03 K/mm3 (0.0-2.0); BASO % 0.1 % (0.0-3.0); EOS # 0.1 (0.0-0.7); EOS % 0.6 % (1.5-5.0); GRAN # 20.21 (1.4-6.5); GRAN % 86.6 % (50.0-68.0); HEMOGLOBIN 8.3 g/dL (14.0-18.0); LYMPH # 1.7 (1.2-3.4); LYMPH % 7.4 % (22.0-35.0); MEAN CELL VOLUME 91.6 fl (80.0-105.0); MEAN CORPUSCULAR HEMOGLOBIN 29.1 pg (25.0-35.0); MEAN CORPUSCULAR HGB CONC 31.8 g/dl (31.0-37.0); MEAN PLATELET VOLUME 10.3 fl (7.0-11.0); MONO # 1.2 (0.1-0.6); MONO % 5.3 % (1.0-6.0); RBC 2.85 10^6/uL (3.5-6.1); RED CELL DISTRIBUTION WIDTH 15.5 % (11.5-14.5); WHITE BLOOD COUNT 23.3 10^3/uL (4.5-11.0)
[2018-07-08 07:43] LABS: BLOOD UREA NITROGEN 22 mg/dL (7-21)
[2018-07-08 07:44] LABS: ALB/GLOB RATIO 0.6 (1.1-1.8); ALBUMIN 2.3 g/dL (3.0-4.8); CALCIUM 9.4 mg/dL (8.4-10.5); GFR NON-AFRICAN AMERICAN > 60
[2018-07-08 07:45] LABS: ALT/SGPT 39 U/L (7-56); AST/SGOT 34 U/L (17-59)
[2018-07-08] MEDS: Acetylcysteine 20% Inhal Soln (4ml) IH SCH ×3 (08:05→19:54)
[2018-07-08] MEDS: Levalbuterol 0.63 MG/3 ML Inhal Soln UD IH SCH ×3 (08:06→19:54)
--- NOTE | 2018-07-08 09:27 | RAD ---
Date of service: 07/08/2018 HISTORY: spiking temp 102F COMPARISON: 07/03/2018 FINDINGS: LUNGS: No active pulmonary disease. PLEURA: No significant pleural effusion identified, no pneumothorax apparent. CARDIOVASCULAR: No aortic atherosclerotic calcification present. Normal cardiac size. No pulmonary vascular congestion. OSSEOUS STRUCTURES: No significant abnormalities. VISUALIZED UPPER ABDOMEN: Normal. OTHER FINDINGS: Tracheostomy present IMPRESSION: No active disease.
[2018-07-08] MEDS: MEROPENEM 500 MG in NS 500 MG/50 ML BAG IVPB SCH ×2 (10:16→21:51)
[2018-07-08] MEDS: levETIRAcetam 500 mg/5ml UD cups PO SCH ×2 (10:20→17:24)
[2018-07-08] MEDS: Phenytoin 100 mg/4 ml Oral Susp UD PO SCH ×3 (10:20→17:24)
[2018-07-08 10:49] LABS: IRON 26 ug/dL (45-180)
[2018-07-08 11:01] LABS: % IRON SATURATION 16 % (20-55); TOTAL IRON BINDING CAPACITY 165 ug/dL (261-462)
--- NOTE | 2018-07-08 15:37 | CP.PCM.PN ---
Subjective - Date & Time of Evaluation Date of Evaluation: 07/08/18 Time of Evaluation: 15:29 - Subjective Subjective: Hematology/Oncology Progress Note (Dr. Alexandra's Service) Patient seen and assessed at bedside. No acute events noted overnight. Patient reports that his trach came out while he was suctioning himself overnight but that a new one was put in by another doctor this morning. Patient denies any further complaints at this time including fevers, chills, headache, chest pain, SOB, abdominal pain, N/V/D/C, changes in urine output, skin changes or any numbness/tingling of any extremity. Objective - Vital Signs/Intake and Output Vital Signs (last 24 hours): Temp Pulse Resp BP Pulse Ox 97.9 F 78 20 127/78 99 07/08/18 09:05 07/08/18 09:05 07/08/18 09:05 07/08/18 09:05 07/08/18 09:05 Intake and Output: 07/08/18 07/08/18 06:59 18:59 Intake Total 1855 Output Total 400 Balance 1455 - Medications Medications: Current Medications Acetaminophen (Tylenol 650mg/20.3ml Solution Ud) 650 mg PEG Q6H PRN PRN Reason: Temperature Last Admin: 07/08/18 00:19 Dose: 650 mg Acetylcysteine (Acetylcysteine 20%) 4 ml IH TID [facility] Last Admin: 07/08/18 13:26 Dose: 4 ml Albuterol/Ipratropium (Duoneb 3 Mg/0.5 Mg (3 Ml) Ud) 3 ml IH TIDRESP PRN PRN Reason: Shortness of Breath Last Admin: 07/06/18 21:46 Dose: 3 ml Baclofen (Lioresal) 5 mg PO TID PRN PRN Reason: Hiccups Guaifenesin/Dextromethorphan (Robitussin Dm) 10 ml PO Q4H PRN PRN Reason: Cough Heparin Sodium (Porcine) (Heparin) 5,000 units SC Q8 [facility]; Protocol Last Admin: 07/08/18 13:28 Dose: 5,000 units Sodium Chloride (Sodium Chloride 0.9%) 1,000 mls @ 100 mls/hr IV .Q10H [facility] Last Admin: 07/07/18 16:04 Dose: 100 mls/hr Meropenem/Sodium Chloride (Merrem Iv 500 Mg/Ns 50 Ml) 500 mg in 50 mls @ 100 mls/hr IVPB Q12 [facility]; Protocol Last Admin: 07/08/18 10:16 Dose: 100 mls/hr Levalbuterol HCl (Xopenex) 0.63 mg IH TIDRESP [facility] Last Admin: 07/08/18 13:26 Dose: 0.63 mg Levetiracetam (Keppra) 500 mg PO BID [facility] Last Admin: 07/08/18 10:20 Dose: 500 mg Lorazepam (Ativan) 1 mg IVP Q15M PRN; Protocol PRN Reason: Seizure activity Metoclopramide HCl (Reglan) 5 mg PO DAILY PRN PRN Reason: Constipation Pantoprazole Sodium (Protonix Susp) 40 mg PEG DAILY [facility] Phenytoin (Dilantin) 100 mg PO TID [facility] Last Admin: 07/08/18 13:27 Dose: 100 mg - Labs Labs: 07/08/18 05:45 07/08/18 05:45 - Additional Findings Additional findings: - Constitutional Appears: No Acute Distress, Cachectic - Head Exam Head Exam: ATRAUMATIC, NORMOCEPHALIC - Eye Exam Eye Exam: EOMI - ENT Exam ENT Exam: Mucous Membranes Moist - Neck Exam Neck Exam: Full ROM. absent: Lymphadenopathy Additional comments: Trach/stoma in place with collar; No visible secretions noted; No signs of clinical infection of surrounding soft tissues - Respiratory Exam Respiratory Exam: Decreased Breath Sounds (Interval improvement noted), NORMAL BREATHING PATTERN. absent: Accessory Muscle Use, Chest Wall Tenderness, Clear to Ausculation Bilateral, Prolonged Expiratory Phase, Rales, Rhonchi, Wheezes, Respiratory Distress - Cardiovascular Exam Cardiovascular Exam: RRR, +S1, +S2 - GI/Abdominal Exam GI & Abdominal Exam: Soft, Normal Bowel Sounds. 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 Of note, CT soft tissue of neck showed progression of previously recorded laryngeal tumor from 2.5x3.1x6.4cm to now 5.0x6.8x10.3cm. PET/CT reviewed and showed metastatic adenopathy. Patient was also found to bullous emphysema with questionable right sided mucus plug. Radiation Oncology was consulted and patient is undergoing palliative RT. Patient was made DNR/DNI via POLST during this admission. Plan: -PET/CT reviewed and showed metastatic adenopathy -CT soft tissue H/N showed progression of tumor with measurements as stated above -Radiation Oncology consulted, all recommendations appreciated; Continue palliative RT with discussion regarding [facility] placement with Dr. Ashlyn sotomayor -Pulmonology consulted, all recommendations appreciated; Continue Xopenex, Mucormyst, Duonebs and supplemental O2 as needed -Palliative consultation noted, all recommendations appreciated; Patient made DNR/DNI via POLST -ID consulted, all recommendations appreciated; Currently on Merrem -ENT consulted, all recommendations appreciated; Continue with trach care and management as ordered -Transfuse one unit of pRBC's after discussion with patients sister -Continue tube feeds as ordered; 7 cans of Jevity 1.2 per day -Continue intermittent self suctioning -Continue chest PT -Further recommendations as per Dr. Alexandra Patient seen and case discussed with attending, Dr. Ibrahima Hatfield PGY2
--- NOTE | 2018-07-08 17:44 | CP.PCM.PN ---
<Alexey Mahmood - Last Filed: 07/08/18 17:47> Subjective - Date & Time of Evaluation Date of Evaluation: 07/08/18 Time of Evaluation: 10:30 - Subjective Subjective: Alexey Mahmood DO, PGY-1 Hospitalist Progress Note for Dr. Edge Patient was seen and examined at bedside this AM. He offers no new complaints and states he is suctioning himself well. He states the secretions have decreased and he has had no continued episodes of hemoptysis. Objective - Vital Signs/Intake and Output Vital Signs (last 24 hours): Temp Pulse Resp BP Pulse Ox 99.6 F 102 H 20 126/70 99 07/08/18 16:28 07/08/18 16:28 07/08/18 16:28 07/08/18 16:28 07/08/18 16:28 Intake and Output: 07/08/18 07/08/18 06:59 18:59 Intake Total 1855 Output Total 400 Balance 1455 - Medications Medications: Current Medications Acetaminophen (Tylenol 650mg/20.3ml Solution Ud) 650 mg PEG Q6H PRN PRN Reason: Temperature Last Admin: 07/08/18 00:19 Dose: 650 mg Acetylcysteine (Acetylcysteine 20%) 4 ml IH TID [facility] Last Admin: 07/08/18 13:26 Dose: 4 ml Albuterol/Ipratropium (Duoneb 3 Mg/0.5 Mg (3 Ml) Ud) 3 ml IH TIDRESP PRN PRN Reason: Shortness of Breath Last Admin: 07/06/18 21:46 Dose: 3 ml Baclofen (Lioresal) 5 mg PO TID PRN PRN Reason: Hiccups Guaifenesin/Dextromethorphan (Robitussin Dm) 10 ml PO Q4H PRN PRN Reason: Cough Heparin Sodium (Porcine) (Heparin) 5,000 units SC Q8 [facility]; Protocol Last Admin: 07/08/18 13:28 Dose: 5,000 units Sodium Chloride (Sodium Chloride 0.9%) 1,000 mls @ 100 mls/hr IV .Q10H [facility] Last Admin: 07/07/18 16:04 Dose: 100 mls/hr Meropenem/Sodium Chloride (Merrem Iv 500 Mg/Ns 50 Ml) 500 mg in 50 mls @ 100 mls/hr IVPB Q12 [facility]; Protocol Last Admin: 07/08/18 10:16 Dose: 100 mls/hr Levalbuterol HCl (Xopenex) 0.63 mg IH TIDRESP [facility] Last Admin: 07/08/18 13:26 Dose: 0.63 mg Levetiracetam (Keppra) 500 mg PO BID [facility] Last Admin: 07/08/18 17:24 Dose: 500 mg Lorazepam (Ativan) 1 mg IVP Q15M [facility]N; Protocol PRN Reason: Seizure activity Metoclopramide HCl (Reglan) 5 mg PO DAILY PRN PRN Reason: Constipation Pantoprazole Sodium (Protonix Susp) 40 mg PEG DAILY [facility] Phenytoin (Dilantin) 100 mg PO TID [facility] Last Admin: 07/08/18 17:24 Dose: 100 mg - Labs Labs: 07/08/18 05:45 07/08/18 05:45 - Constitutional Appears: Cachectic, Chronically Ill - Head Exam Head Exam: ATRAUMATIC, NORMOCEPHALIC - Eye Exam Eye Exam: EOMI, Normal appearance, PERRL - ENT Exam ENT Exam: Mucous Membranes Dry - Neck Exam Neck Exam: Full ROM Additional comments: tracheostomy in place, clean, dry, intact - Respiratory Exam Respiratory Exam: Clear to Ausculation Bilateral, NORMAL BREATHING PATTERN. absent: Rales, Rhonchi, Wheezes - Cardiovascular Exam Cardiovascular Exam: REGULAR RHYTHM, RRR, +S1, +S2. absent: Gallop, Rubs, Mu rmur - GI/Abdominal Exam GI & Abdominal Exam: Soft, Normal Bowel Sounds. absent: Guarding, Tenderness - Extremities Exam Extremities Exam: Full ROM, Normal Inspection - Back Exam Back Exam: NORMAL INSPECTION - Neurological Exam Neurological Exam: Alert, Awake, Oriented x3 - Psychiatric Exam Psychiatric exam: Normal Affect, Normal Mood - Skin Skin Exam: Dry, Intact, Warm Assessment and Plan - Assessment and Plan (Free Text) Assessment: 73 yo M with PMH of oropharyngeal CA (s/p laryngectomy and tracheostomy), COPD, seizure disorder, and arthritis admitted for worsening SOB, secretions, and he moptysis. He is now stable and has not had any additional apneic episodes. He states the hiccup episodes are improving with baclofen but that he feels sleepier. Plan: 1. Worsening Secretions/Hemoptysis Now suctioning himself and clearing secretions well Continue baclofen PRN Continue xopenex PRN Continue suctioning, chest PT PRN Continue tube feeds with aspiration pxns Per ID recs, continue vanc as prior infiltrate cannot exclude underlying aspiration PNA, received 3 days of zosyn F/u additional ID recs Consider [facility] placement vs home hospice Currently receiving palliative radiation M-F 2. Persistent leukocytosis May be 2/2 underlying malignancy vs occult infectious process UA with pyuria, small leukocyte esterase Urine cx negative Per ID recs, continue vanc and start merem Has also been febrile Continue to monitor 3. COPD CT chest with many emphysematous blebs Continue xopenex, chest PT, pulmonary toilet, suctioning as described above Pulmonology following, recs appreciated 4. Hypercalcemia Likely 2/2 underlying malignancy Single dose of lasix given on admission Ca is down trending and is down to 9.4 today Continue NS @ 100 cc/hr Continue to monitor Ca level closely 5. Hypokalemia Resolved, continue to monitor 6. 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 Goldberg Palliative care, Dr. Goldberg, and Dr. Alexandra following, recs appreciated 7. Hx of seizure disorder Continue keppra and dilantin GI/DVT PPX: protonix, SCD, SC heparin DNR/DNI Tube feedings w/aspiration pxns, adjustments per cadastral surveyor Monitor on remote tele Case and plan reviewed and discussed with my attending Dr. Minesh Mahmood, DO IM Resident PGY-1 Pager: [phone] <Lucio Edge - Last Filed: 07/10/18 17:08> Objective - Vital Signs/Intake and Output Vital Signs (last 24 hours): Temp Pulse Resp BP Pulse Ox 97.5 F L 85 20 130/60 96 07/10/18 07:46 07/10/18 14:00 07/10/18 07:46 07/10/18 07:46 07/10/18 07:46 Intake and Output: 07/10/18 07/10/18 06:59 18:59 Intake Total 325 Balance 325 - Medications Medications: Current Medications Acetaminophen (Tylenol 650mg/20.3ml Solution Ud) 650 mg PEG Q6H PRN PRN Reason: Temperature Last Admin: 07/08/18 00:19 Dose: 650 mg Acetylcysteine (Acetylcysteine 20%) 4 ml IH TID [facility] Last Admin: 07/10/18 13:33 Dose: 4 ml Albuterol/Ipratropium (Duoneb 3 Mg/0.5 Mg (3 Ml) Ud) 3 ml IH TIDRESP PRN PRN Reason: Shortness of Breath Last Admin: 07/06/18 21:46 Dose: 3 ml Baclofen (Lioresal) 5 mg PO TID PRN PRN Reason: Hiccups Guaifenesin/Dextromethorphan (Robitussin Dm) 10 ml PO Q4H PRN PRN Reason: Cough Heparin Sodium (Porcine) (Heparin) 5,000 units SC Q8 [facility]; Protocol Last Admin: 07/10/18 13:15 Dose: 5,000 units Sodium Chloride (Sodium Chloride 0.9%) 1,000 mls @ 100 mls/hr IV .Q10H [facility] Last Admin: 07/10/18 14:38 Dose: 100 mls/hr Meropenem/Sodium Chloride (Merrem Iv 500 Mg/Ns 50 Ml) 500 mg in 50 mls @ 100 mls/hr IVPB Q12 [facility]; Protocol Last Admin: 07/10/18 10:12 Dose: 100 mls/hr Vancomycin HCl (Vancomycin 1gm) 1 gm in 250 mls @ 167 mls/hr IVPB Q12H [facility]; Protocol Last Admin: 07/10/18 11:17 Dose: 167 mls/hr Insulin Human Regular (Humulin R High) 0 units SC ACHS [facility]; Protocol Last Admin: 07/10/18 16:41 Dose: 15 unit Levalbuterol HCl (Xopenex) 0.63 mg IH TIDRESP [facility] Last Admin: 07/10/18 13:32 Dose: 0.63 mg Levetiracetam (Keppra) 500 mg PO BID [facility] Last Admin: 07/10/18 10:12 Dose: 500 mg Lorazepam (Ativan) 1 mg IVP Q15M [facility]; Protocol PRN Reason: Seizure activity Metoclopramide HCl (Reglan) 5 mg PO DAILY PRN PRN Reason: Constipation Pantoprazole Sodium (Protonix Susp) 40 mg PEG DAILY [facility] Last Admin: 07/10/18 10:12 Dose: 40 mg Phenytoin (Dilantin) 100 mg PO TID [facility] Last Admin: 07/10/18 13:16 Dose: 100 mg - Labs Labs: 07/10/18 09:35 07/10/18 09:35 Attending/Attestation - Attestation I have personally seen and examined this patient.: Yes I have fully participated in the care of the patient.: Yes I have reviewed all pertinent clinical information, including history, physical exam and plan: Yes Notes (Text): 07/10/18 17:04 Attending note; Patient seen and examined with resident. Patient is alert. Answers few questions. Not in any acute distress. 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 1. Shortness of breath; improved significantly. Continue aggressive trach care. Monitor closely. Follow-up with respiratory therapist. Currently comfortable. 2. Leukocytosis. Uptrending. May be multifactorial secondary to malignancy. Urine culture is negative. Blood cultures with no growth. Patient had MAXIMUM TEMPERATURE of 102. Monitor closely. Plan culture ordered. We will follow up with ID closely. Tracheostomy was changed 07/03/2018. 3. Emphysema. Chest CT without contrast radiologist showed bullous emphysema. Continue nebulizer treatments and chest PT. 4. History of oropharyngeal cancer. CT neck shows significant increase in size of the right lower pharyngeal soft tissue mass with occlusion of the area worsens and to prior examination; overall extent in size of the mass has increased; tracheostomy in place. ENT evaluation appreciated . Patient is getting radiation treatment . We will follow up with oncology . 5. History of seizure disorder. Continue Keppra and phenytoin. 6. GI/DVT prophylaxis. Protonix/SCDs. 7. Continue PEG feeding. Palliative care evaluation appreciated. Patient is DNR/DNI Prognosis is poor.
--- NOTE | 2018-07-08 19:40 | CP.PCM.PN ---
Subjective - Date & Time of Evaluation Date of Evaluation: 07/08/18 Time of Evaluation: 16:45 - Subjective Subjective: Infectious Disease Follow Up: July 08, 2018 73M w/ a complex oncology history; patient was 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 Subsequently in 2016 patient was found to have recurrence of throat CA. He presented most recently in 05/2018 w/ large soft tissue mass in oropharyngeal region; during this visit patient received PEG tube placement. He was to follow up with heme/onc Dr. Cleveland however reported he was unable to make appt due to poor transportation. Patient reports he currently not undergoing radiation/chemotherapy at this time. Remainder of PMHx is significant for COPD, Seizure, and arthritis. He presented to [facility] [place] [place] ED 07/02 w/ complaints of SOB, Hemoptysis, worsening secretions over the past month. Patient reports hemoptysis as light pink tinged mucopurlent sputum does not report overtly bloody or clotted sputum. He says his SOB feels as if he is not getting enough air through his tracheostomy. Patient reported he sees ENT Dr. Tapia for trach management. ID called for evaluation of potential HCAP. CT Chest showing bullous emphysema but no infiltrate. Cannot rule out early infiltrate. Patient still with leukocytosis. On trach collar with supplemental O2. Patient is awake, alert, and answer questions appropriately. He states that he is feeling better today. Patient states that is less SOB and breathing easier. Noted that the patient had fever up to 102.3 F overnight. Patient claims that he feels well and has improved. Repeat blood and urine cultures sent. He remains on Meropenem and IV Vancomycin. Vancomycin on hold given the last trough level was 35. Objective - Vital Signs/Intake and Output Vital Signs (last 24 hours): Temp Pulse Resp BP Pulse Ox 99.6 F 98 H 20 126/70 99 07/08/18 16:28 07/08/18 18:00 07/08/18 16:28 07/08/18 16:28 07/08/18 16:28 Intake and Output: 07/08/18 07/09/18 18:59 06:59 Output Total 600 Balance -600 - Medications Medications: Current Medications Acetaminophen (Tylenol 650mg/20.3ml Solution Ud) 650 mg PEG Q6H PRN PRN Reason: Temperature Last Admin: 07/08/18 00:19 Dose: 650 mg Acetylcysteine (Acetylcysteine 20%) 4 ml IH TID [facility] Last Admin: 07/08/18 13:26 Dose: 4 ml Albuterol/Ipratropium (Duoneb 3 Mg/0.5 Mg (3 Ml) Ud) 3 ml IH TIDRESP PRN PRN Reason: Shortness of Breath Last Admin: 07/06/18 21:46 Dose: 3 ml Baclofen (Lioresal) 5 mg PO TID PRN PRN Reason: Hiccups Guaifenesin/Dextromethorphan (Robitussin Dm) 10 ml PO Q4H PRN PRN Reason: Cough Heparin Sodium (Porcine) (Heparin) 5,000 units SC Q8 [facility]; Protocol Last Admin: 07/08/18 13:28 Dose: 5,000 units Sodium Chloride (Sodium Chloride 0.9%) 1,000 mls @ 100 mls/hr IV .Q10H [facility] Last Admin: 07/07/18 16:04 Dose: 100 mls/hr Meropenem/Sodium Chloride (Merrem Iv 500 Mg/Ns 50 Ml) 500 mg in 50 mls @ 100 mls/hr IVPB Q12 [facility]; Protocol Last Admin: 07/08/18 10:16 Dose: 100 mls/hr Levalbuterol HCl (Xopenex) 0.63 mg IH TIDRESP [facility] Last Admin: 07/08/18 13:26 Dose: 0.63 mg Levetiracetam (Keppra) 500 mg PO BID [facility] Last Admin: 07/08/18 17:24 Dose: 500 mg Lorazepam (Ativan) 1 mg IVP Q15M [facility]; Protocol PRN Reason: Seizure activity Metoclopramide HCl (Reglan) 5 mg PO DAILY PRN PRN Reason: Constipation Pantoprazole Sodium (Protonix Susp) 40 mg PEG DAILY [facility] Phenytoin (Dilantin) 100 mg PO TID [facility] Last Admin: 07/08/18 17:24 Dose: 100 mg - Labs Labs: 07/08/18 05:45 07/08/18 05:45 - Constitutional Appears: Non-toxic, No Acute Distress, Chronically Ill - Head Exam Head Exam: ATRAUMATIC, NORMOCEPHALIC - Eye Exam Eye Exam: EOMI, PERRL Pupil Exam: NORMAL ACCOMODATION, PERRL - ENT Exam ENT Exam: Mucous Membranes Moist, Normal External Ear Exam, TM's Normal Bilaterally - Neck Exam Neck Exam: Full ROM Additional comments: stoma in place. - Respiratory Exam Respiratory Exam: Clear to Ausculation Bilateral, NORMAL BREATHING PATTERN. absent: Rales, Rhonchi, Wheezes - Cardiovascular Exam Cardiovascular Exam: REGULAR RHYTHM, RRR, +S1, +S2 - GI/Abdominal Exam GI & Abdominal Exam: Soft, Normal Bowel Sounds. absent: Distended, Tenderness Additional comments: PEG in place - Extremities Exam Extremities Exam: Full ROM, Normal Inspection - Neurological Exam Neurological Exam: Alert, Awake, CN II-XII Intact, Oriented x3 - Psychiatric Exam Psychiatric exam: Normal Affect, Normal Mood - Skin Skin Exam: Dry, Intact Additional comments: As above Assessment and Plan - Assessment and Plan (Free Text) Assessment: 73 yo male with PMHx of oropharyngeal SCC s/p total larygnectomy with trach but had recurrence. Brought to [facility] [place] for worsening SOB and hemoptysis. Found to have increased leukocytosis. CT scan showed bullous emphysema but no infiltrate. Started on IV Vancomycin and Zosyn. Obtain procalcitonin value. Cannot rule out leukocytosis secondary to oropharyngeal SCC. Continue antibiotics in meantime. Pharyngeal mass has increased in size compared to prior studies. Received 3 days of Zosyn. Clinically the patient appears better but still with leukocytosis. Would check urine cultures and urinalysis as well. Carr cultures. Leukocytosis above patient's prior baseline with mild left shift. Cannot rule out an early pneumonia. Also cannot rule out whether increased leukocytosis may be secondary to the patient's recurrent oropharyngeal SCC. Persistent leukocytosis. Remains afebrile. Persistent leukocytosis. Given 3 days of Zosyn. Still on Vancomycin IV. Monitor patient at this point. Cultures negative. No clear explanation for leukocytosis at this point. Leukocytosis increasing today. Fever of 102.3 F overnight. Meropenem and Vancomycin being administered. Vancomycin on hold due to Vancomycin level of 35. Thank you for allowing me to participate in the care of the patient, we will follow with you.
[2018-07-09 06:34] LABS: BASO # 0.01 K/mm3 (0.0-2.0); EOS # 0.2 (0.0-0.7); EOS % 0.6 % (1.5-5.0); GRAN # 20.56 (1.4-6.5); GRAN % 86.9 % (50.0-68.0); LYMPH # 1.8 (1.2-3.4); LYMPH % 7.6 % (22.0-35.0); MEAN CELL VOLUME 90.9 fl (80.0-105.0); MEAN CORPUSCULAR HGB CONC 31.9 g/dl (31.0-37.0); MEAN PLATELET VOLUME 10.7 fl (7.0-11.0); MONO # 1.2 (0.1-0.6); MONO % 4.9 % (1.0-6.0); RBC 2.76 10^6/uL (3.5-6.1); RED CELL DISTRIBUTION WIDTH 15.5 % (11.5-14.5); WHITE BLOOD COUNT 23.7 10^3/uL (4.5-11.0)
[2018-07-09 06:41] LABS: ALB/GLOB RATIO 0.6 (1.1-1.8); ALBUMIN 2.2 g/dL (3.0-4.8); ALT/SGPT 38 U/L (7-56); AST/SGOT 37 U/L (17-59); BLOOD UREA NITROGEN 24 mg/dL (7-21); CALCIUM 9.4 mg/dL (8.4-10.5); GFR NON-AFRICAN AMERICAN > 60
[2018-07-09] MEDS: Acetylcysteine 20% Inhal Soln (4ml) IH SCH ×3 (07:55→19:51)
[2018-07-09] MEDS: Levalbuterol 0.63 MG/3 ML Inhal Soln UD IH SCH ×3 (07:56→19:51)
--- NOTE | 2018-07-09 09:58 | CP.PCM.PN ---
<Alexey Mahmood - Last Filed: 07/09/18 16:10> Subjective - Date & Time of Evaluation Date of Evaluation: 07/09/18 Time of Evaluation: 09:56 - Subjective Subjective: Alexey Mahmood DO, PGY-1 Hospitalist Progress Note for Dr. Edge Patient was seen and examined at bedside this AM. He reports no new complaints and states cough and secretions are consistent but manageable. Objective - Vital Signs/Intake and Output Vital Signs (last 24 hours): Temp Pulse Resp BP Pulse Ox 98.8 F 94 H 20 134/75 99 07/09/18 07:54 07/09/18 07:54 07/09/18 07:54 07/09/18 07:54 07/09/18 07:54 Intake and Output: 07/09/18 07/09/18 06:59 18:59 Intake Total 1200 Output Total 925 Balance 275 - Medications Medications: Current Medications Acetaminophen (Tylenol 650mg/20.3ml Solution Ud) 650 mg PEG Q6H PRN PRN Reason: Temperature Last Admin: 07/08/18 00:19 Dose: 650 mg Acetylcysteine (Acetylcysteine 20%) 4 ml IH TID [facility] Last Admin: 07/09/18 07:55 Dose: 4 ml Albuterol/Ipratropium (Duoneb 3 Mg/0.5 Mg (3 Ml) Ud) 3 ml IH TIDRESP PRN PRN Reason: Shortness of Breath Last Admin: 07/06/18 21:46 Dose: 3 ml Baclofen (Lioresal) 5 mg PO TID PRN PRN Reason: Hiccups Guaifenesin/Dextromethorphan (Robitussin Dm) 10 ml PO Q4H PRN PRN Reason: Cough Heparin Sodium (Porcine) (Heparin) 5,000 units SC Q8 [facility]; Protocol Last Admin: 07/09/18 05:21 Dose: 5,000 units Sodium Chloride (Sodium Chloride 0.9%) 1,000 mls @ 100 mls/hr IV .Q10H [facility] Last Admin: 07/07/18 16:04 Dose: 100 mls/hr Meropenem/Sodium Chloride (Merrem Iv 500 Mg/Ns 50 Ml) 500 mg in 50 mls @ 100 mls/hr IVPB Q12 [facility]; Protocol Last Admin: 07/08/18 21:51 Dose: 100 mls/hr Levalbuterol HCl (Xopenex) 0.63 mg IH TIDRESP [facility] Last Admin: 07/09/18 07:56 Dose: 0.63 mg Levetiracetam (Keppra) 500 mg PO BID [facility] Last Admin: 07/08/18 17:24 Dose: 500 mg Lorazepam (Ativan) 1 mg IVP Q15M PRN; Protocol PRN Reason: Seizure activity Metoclopramide HCl (Reglan) 5 mg PO DAILY PRN PRN Reason: Constipation Pantoprazole Sodium (Protonix Susp) 40 mg PEG DAILY [facility] Phenytoin (Dilantin) 100 mg PO TID [facility] Last Admin: 07/08/18 17:24 Dose: 100 mg - Labs Labs: 07/09/18 05:30 07/09/18 05:30 - Constitutional Appears: Non-toxic, No Acute Distress - Head Exam Head Exam: ATRAUMATIC, NORMOCEPHALIC - Eye Exam Eye Exam: EOMI, Normal appearance, PERRL - ENT Exam ENT Exam: Mucous Membranes Moist - Neck Exam Neck Exam: Full ROM Additional comments: tracheostomy clean, dry, intact, no change from prior exams - Respiratory Exam Respiratory Exam: Clear to Ausculation Bilateral, NORMAL BREATHING PATTERN. absent: Accessory Muscle Use, Rales, Rhonchi, Wheezes, Respiratory Distress - Cardiovascular Exam Cardiovascular Exam: REGULAR RHYTHM, RRR, +S1, +S2. absent: Gallop, Rubs, Murmur - GI/Abdominal Exam GI & Abdominal Exam: Soft, Normal Bowel Sounds. absent: Guarding, Tenderness Additional comments: PEG tube in place, clean, dry , intact - Extremities Exam Extremities Exam: Full ROM, Normal Inspection - Neurological Exam Neurological Exam: Alert, Awake, Oriented x3 - Psychiatric Exam Psychiatric exam: Normal Affect, Normal Mood - Skin Skin Exam: Dry, Intact, Warm Assessment and Plan - Assessment and Plan (Free Text) Assessment: 73 yo M with PMH of oropharyngeal CA (s/p laryngectomy and tracheostomy), COPD, seizure disorder, and arthritis admitted for worsening SOB, secretions, and hemoptysis. He is now stable and has not had any additional apneic episodes. He states the hiccup episodes are improving with baclofen but that he feels sleepier. Plan: 1. Worsening Secretions/Hemoptysis Now suctioning himself and clearing secretions well Continue baclofen PRN Continue xopenex PRN Continue suctioning, chest PT PRN Tube feeds, aspiration pxns F/u additional ID recs F/u SW recs regarding [facility] placement vs TCU vs home Currently receiving palliative radiation M-F 2. Persistent leukocytosis May be 2/2 underlying malignancy vs occult infectious process UA with pyuria, small leukocyte esterase Urine cx negative Per ID recs, d/c vanco as vanc trough was too high F/u ID recs regarding when to restart vanco Is now afebrile since merem treatment Continue to monitor 3. COPD CT chest with many emphysematous blebs c/w hx of COPD Currently not in exacerbation Monitor closely 4. Hypercalcemia Now down to 9.4 Continue NS @ 100 cc/hr 5. Hypokalemia Resolved, continue to monitor 6. 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 Goldberg May also be able to receive palliative chemotherapy from Dr. Alexandra after discharge Per palliative care, patient now has POLST stating DNR/DNI Palliative care, Dr. Goldberg, and Dr. Alexandra following, recs appreciated 7. 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 Minesh Mahmood, DO IM Resident PGY-1 Pager: [phone] <Lucio Edge - Last Filed: 07/10/18 17:11> Objective - Vital Signs/Intake and Output Vital Signs (last 24 hours): Temp Pulse Resp BP Pulse Ox 97.3 F L 80 18 120/68 95 07/10/18 17:03 07/10/18 17:03 07/10/18 17:03 07/10/18 17:03 07/10/18 17:03 Intake and Output: 07/10/18 07/10/18 06:59 18:59 Intake Total 325 Balance 325 - Medications Medications: Current Medications Acetaminophen (Tylenol 650mg/20.3ml Solution Ud) 650 mg PEG Q6H PRN PRN Reason: Temperature Last Admin: 07/08/18 00:19 Dose: 650 mg Acetylcysteine (Acetylcysteine 20%) 4 ml IH TID [facility] Last Admin: 07/10/18 13:33 Dose: 4 ml Albuterol/Ipratropium (Duoneb 3 Mg/0.5 Mg (3 Ml) Ud) 3 ml IH TIDRESP PRN PRN Reason: Shortness of Breath Last Admin: 07/06/18 21:46 Dose: 3 ml Baclofen (Lioresal) 5 mg PO TID PRN PRN Reason: Hiccups Guaifenesin/Dextromethorphan (Robitussin Dm) 10 ml PO Q4H PRN PRN Reason: Cough Heparin Sodium (Porcine) (Heparin) 5,000 units SC Q8 [facility]; Protocol Last Admin: 07/10/18 13:15 Dose: 5,000 units Sodium Chloride (Sodium Chloride 0.9%) 1,000 mls @ 100 mls/hr IV .Q10H [facility] Last Admin: 07/10/18 14:38 Dose: 100 mls/hr Meropenem/Sodium Chloride (Merrem Iv 500 Mg/Ns 50 Ml) 500 mg in 50 mls @ 100 mls/hr IVPB Q12 [facility]; Protocol Last Admin: 07/10/18 10:12 Dose: 100 mls/hr Vancomycin HCl (Vancomycin 1gm) 1 gm in 250 mls @ 167 mls/hr IVPB Q12H [facility]; Protocol Last Admin: 07/10/18 11:17 Dose: 167 mls/hr Insulin Human Regular (Humulin R High) 0 units SC ACHS [facility]; Protocol Last Admin: 07/10/18 16:41 Dose: 15 unit Levalbuterol HCl (Xopenex) 0.63 mg IH TIDRESP [facility] Last Admin: 07/10/18 13:32 Dose: 0.63 mg Levetiracetam (Keppra) 500 mg PO BID [facility] Last Admin: 07/10/18 10:12 Dose: 500 mg Lorazepam (Ativan) 1 mg IVP Q15M PRN; Protocol PRN Reason: Seizure activity Metoclopramide HCl (Reglan) 5 mg PO DAILY PRN PRN Reason: Constipation Pantoprazole Sodium (Protonix Susp) 40 mg PEG DAILY [facility] Last Admin: 07/10/18 10:12 Dose: 40 mg Phenytoin (Dilantin) 100 mg PO TID [facility] Last Admin: 07/10/18 13:16 Dose: 100 mg - Labs Labs: 07/10/18 09:35 07/10/18 09:35 Attending/Attestation - Attestation I have personally seen and examined this patient.: Yes I have fully participated in the care of the patient.: Yes I have reviewed all pertinent clinical information, including history, physical exam and plan: Yes Notes (Text): 07/10/18 17:09 Attending note; Patient seen and examined with resident. Patient is alert. Answers few questions. Not in any acute distress. Patient is afebrile and nontoxic. 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 1. Shortness of breath; improved significantly. Continue aggressive trach care. Monitor closely. Follow-up with respiratory therapist. Currently comfortable. 2. Leukocytosis. May be multifactorial secondary to malignancy. Urine culture is negative. Blood cultures with no growth. Patient is afebrile and nontoxic. Repeat cultures negative. We will follow up with ID closely. Currently on IV Merrem. Tracheostomy was changed 07/03/2018. Repeat chest x-rays negative for new infiltrate. 3. Emphysema. Chest CT without contrast radiologist showed bullous emphysema. Continue nebulizer treatments and chest PT. 4. History of oropharyngeal cancer. CT neck shows significant increase in size of the right lower pharyngeal soft tissue mass with occlusion of the area worsens and to prior examination; overall extent in size of the mass has increased; tracheostomy in place. ENT evaluation appreciated . Patient is getting radiation treatment . We will follow up with oncology . 5. History of seizure disorder. Continue Keppra and phenytoin. 6. GI/DVT prophylaxis. Protonix/SCDs. 7. Continue PEG feeding. 8. anemia; PRBC transfusion ordered by oncology. Palliative care evaluation appreciated. Patient is DNR/DNI. Case discussed with patient's in detail. Prognosis is poor.
[2018-07-09] MEDS ORDERED: Acetaminophen 650mg/20.3ml solution UD PEG ONE (11:00)
[2018-07-09] MEDS ORDERED: DiphenhydrAMINE 12.5 mg/5 ml LIQ UD (5 ml) PEG ONE (11:00)
--- NOTE | 2018-07-09 11:02 | CP.PCM.PN ---
Subjective - Date & Time of Evaluation Date of Evaluation: 07/09/18 Time of Evaluation: 11:01 - Subjective Subjective: Hematology/Oncology Progress Note (Dr. Alexandra's Service) Patient seen and assessed at bedside. No acute events noted overnight. Patient denies any further complaints at this time including fevers, chills, headache, chest pain, SOB, abdominal pain, N/V/D/C, changes in urine output, skin changes or any numbness/tingling of any extremity. Objective - Vital Signs/Intake and Output Vital Signs (last 24 hours): Temp Pulse Resp BP Pulse Ox 98.8 F 94 H 20 134/75 99 07/09/18 07:54 07/09/18 07:54 07/09/18 07:54 07/09/18 07:54 07/09/18 07:54 Intake and Output: 07/09/18 07/09/18 06:59 18:59 Intake Total 1200 Output Total 925 Balance 275 - Medications Medications: Current Medications Acetaminophen (Tylenol 650mg/20.3ml Solution Ud) 650 mg PEG Q6H PRN PRN Reason: Temperature Last Admin: 07/08/18 00:19 Dose: 650 mg Acetylcysteine (Acetylcysteine 20%) 4 ml IH TID [facility] Last Admin: 07/09/18 07:55 Dose: 4 ml Albuterol/Ipratropium (Duoneb 3 Mg/0.5 Mg (3 Ml) Ud) 3 ml IH TIDRESP PRN PRN Reason: Shortness of Breath Last Admin: 07/06/18 21:46 Dose: 3 ml Baclofen (Lioresal) 5 mg PO TID PRN PRN Reason: Hiccups Guaifenesin/Dextromethorphan (Robitussin Dm) 10 ml PO Q4H PRN PRN Reason: Cough Heparin Sodium (Porcine) (Heparin) 5,000 units SC Q8 [facility]; Protocol Last Admin: 07/09/18 05:21 Dose: 5,000 units Sodium Chloride (Sodium Chloride 0.9%) 1,000 mls @ 100 mls/hr IV .Q10H [facility] Last Admin: 07/07/18 16:04 Dose: 100 mls/hr Meropenem/Sodium Chloride (Merrem Iv 500 Mg/Ns 50 Ml) 500 mg in 50 mls @ 100 mls/hr IVPB Q12 [facility]; Protocol Last Admin: 07/08/18 21:51 Dose: 100 mls/hr Levalbuterol HCl (Xopenex) 0.63 mg IH TIDRESP [facility] Last Admin: 07/09/18 07:56 Dose: 0.63 mg Levetiracetam (Keppra) 500 mg PO BID [facility] Last Admin: 07/08/18 17:24 Dose: 500 mg Lorazepam (Ativan) 1 mg IVP Q15M PRN; Protocol PRN Reason: Seizure activity Methylprednisolone (Solu-Medrol) 50 mg IVP ONCE ONE Stop: 07/09/18 11:01 Metoclopramide HCl (Reglan) 5 mg PO DAILY PRN PRN Reason: Constipation Pantoprazole Sodium (Protonix Susp) 40 mg PEG DAILY [facility] Phenytoin (Dilantin) 100 mg PO TID [facility] Last Admin: 07/08/18 17:24 Dose: 100 mg - Labs Labs: 07/09/18 05:30 07/09/18 05:30 - Additional Findings Additional findings: - Constitutional Appears: No Acute Distress, Cachectic - Head Exam Head Exam: ATRAUMATIC, NORMOCEPHALIC - Eye Exam Eye Exam: EOMI - ENT Exam ENT Exam: Mucous Membranes Moist - Neck Exam Neck Exam: Full ROM. absent: Lymphadenopathy Additional comments: Trach/stoma in place with collar; No visible secretions noted; No signs of clinical infection of surrounding soft tissues - Respiratory Exam Respiratory Exam: Decreased Breath Sounds (Interval improvement noted), NORMAL BREATHING PATTERN. absent: Accessory Muscle Use, Chest Wall Tenderness, Clear to Ausculation Bilateral, Prolonged Expiratory Phase, Rales, Rhonchi, Wheezes, Respiratory Distress - Cardiovascular Exam Cardiovascular Exam: RRR, +S1, +S2 - GI/Abdominal Exam GI & Abdominal Exam: Soft, Normal Bowel Sounds. 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 Of note, CT soft tissue of neck showed progression of previously recorded laryngeal tumor from 2.5x3.1x6.4cm to now 5.0x6.8x10.3cm. PET/CT reviewed and showed metastatic adenopathy. Patient was also found to bullous emphysema with questionable right sided mucus plug. Radiation Oncology was consulted and patient is undergoing palliative RT. Patient was made DNR/DNI via POLST during this admission. Plan: -PET/CT reviewed and showed metastatic adenopathy -CT soft tissue H/N showed progression of tumor with measurements as stated above -Radiation Oncology consulted, all recommendations appreciated; Continue palliative RT with discussion regarding [facility] placement with Dr. Ashlyn sotomayor -Pulmonology consulted, all recommendations appreciated; Continue Xopenex, Mucormyst, Duonebs and supplemental O2 as needed -Palliative consultation noted, all recommendations appreciated; Patient made DNR/DNI via POLST -ID consulted, all recommendations appreciated; Currently on Merrem -ENT consulted, all recommendations appreciated; Continue with trach care and management as ordered -Transfuse one unit of pRBC's with premedications as ordered -Continue tube feeds as ordered; 7 cans of Jevity 1.2 per day -Continue intermittent self suctioning -Continue chest PT -Further recommendations as per Dr. Alexandra Patient seen and case discussed with attending, Dr. Ibrahima Hatfield PGY2
[2018-07-09] MEDS: Pantoprazole 40 mg Susp UD PEG SCH (11:09)
[2018-07-09] MEDS: Phenytoin 100 mg/4 ml Oral Susp UD PO SCH ×3 (11:09→17:07)
[2018-07-09] MEDS: MEROPENEM 500 MG in NS 500 MG/50 ML BAG IVPB SCH ×2 (11:09→21:32)
[2018-07-09] MEDS: levETIRAcetam 500 mg/5ml UD cups PO SCH ×2 (11:09→17:07)
--- NOTE | 2018-07-09 20:13 | CP.PCM.PN ---
Subjective - Date & Time of Evaluation Date of Evaluation: 07/09/18 Time of Evaluation: 18:30 - Subjective Subjective: Infectious Disease Follow Up: July 09, 2018 73M w/ a complex oncology history; patient was 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 Subsequently in 2016 patient was found to have recurrence of throat CA. He presented most recently in 05/2018 w/ large soft tissue mass in oropharyngeal region; during this visit patient received PEG tube placement. He was to follow up with heme/onc Dr. Cleveland however reported he was unable to make appt due to poor transportation. Patient reports he currently not undergoing radiation/chemotherapy at this time. Remainder of PMHx is significant for COPD, Seizure, and arthritis. He presented to [facility] 07/02 w/ complaints of SOB, Hemoptysis, worsening secretions over the past month. Patient reports hemoptysis as light pink tinged mucopurlent sputum does not report overtly bloody or clotted sputum. He says his SOB feels as if he is not getting enough air through his tracheostomy. Patient reported he sees ENT Dr. Tapia for trach management. ID called for evaluation of potential HCAP. CT Chest showing bullous emphysema but no infiltrate. Cannot rule out early infiltrate. Patient still with leukocytosis. On trach collar with supplemental O2. Patient is awake, alert, and answer questions appropriately. He states that he is feeling better today. Patient states that is less SOB and breathing easier. Noted that the patient had fever up to 102.3 F overnight. Patient claims that he feels well and has improved. Repeat blood and urine cultures sent. He remains on Meropenem and IV Vancomycin. Vancomycin on hold given the last trough level was 35. On palliative radiation therapy. Now DNR/DNI. Objective - Vital Signs/Intake and Output Vital Signs (last 24 hours): Temp Pulse Resp BP Pulse Ox 98.2 F 91 H 19 134/72 99 07/09/18 18:21 07/09/18 18:21 07/09/18 18:21 07/09/18 18:21 07/09/18 07:54 Intake and Output: 07/09/18 07/10/18 18:59 06:59 Intake Total 1503 Output Total 800 Balance 703 - Medications Medications: Current Medications Acetaminophen (Tylenol 650mg/20.3ml Solution Ud) 650 mg PEG Q6H PRN PRN Reason: Temperature Last Admin: 07/08/18 00:19 Dose: 650 mg Acetylcysteine (Acetylcysteine 20%) 4 ml IH TID [facility] Last Admin: 07/09/18 19:51 Dose: 4 ml Albuterol/Ipratropium (Duoneb 3 Mg/0.5 Mg (3 Ml) Ud) 3 ml IH TIDRESP PRN PRN Reason: Shortness of Breath Last Admin: 07/06/18 21:46 Dose: 3 ml Baclofen (Lioresal) 5 mg PO TID PRN PRN Reason: Hiccups Guaifenesin/Dextromethorphan (Robitussin Dm) 10 ml PO Q4H PRN PRN Reason: Cough Heparin Sodium (Porcine) (Heparin) 5,000 units SC Q8 [facility]; Protocol Last Admin: 07/09/18 13:43 Dose: 5,000 units Sodium Chloride (Sodium Chloride 0.9%) 1,000 mls @ 100 mls/hr IV .Q10H [facility] Last Admin: 07/07/18 16:04 Dose: 100 mls/hr Meropenem/Sodium Chloride (Merrem Iv 500 Mg/Ns 50 Ml) 500 mg in 50 mls @ 100 mls/hr IVPB Q12 [facility]; Protocol Last Admin: 07/09/18 11:09 Dose: 100 mls/hr Levalbuterol HCl (Xopenex) 0.63 mg IH TIDRESP [facility] Last Admin: 07/09/18 19:51 Dose: 0.63 mg Levetiracetam (Keppra) 500 mg PO BID [facility] Last Admin: 07/09/18 17:07 Dose: 500 mg Lorazepam (Ativan) 1 mg IVP Q15M [facility]N; Protocol PRN Reason: Seizure activity Metoclopramide HCl (Reglan) 5 mg PO DAILY PRN PRN Reason: Constipation Pantoprazole Sodium (Protonix Susp) 40 mg PEG DAILY [facility] Last Admin: 07/09/18 11:09 Dose: 40 mg Phenytoin (Dilantin) 100 mg PO TID [facility] Last Admin: 07/09/18 17:07 Dose: 100 mg - Labs Labs: 07/09/18 05:30 07/09/18 05:30 - Constitutional Appears: Non-toxic, No Acute Distress, Chronically Ill - Head Exam Head Exam: ATRAUMATIC, NORMOCEPHALIC - Eye Exam Eye Exam: EOMI, PERRL Pupil Exam: NORMAL ACCOMODATION, PERRL - ENT Exam ENT Exam: Mucous Membranes Moist, Normal External Ear Exam, TM's Normal Bilaterally - Neck Exam Neck Exam: Full ROM Additional comments: stoma in place. - Respiratory Exam Respiratory Exam: Clear to Ausculation Bilateral, NORMAL BREATHING PATTERN. absent: Rales, Rhonchi, Wheezes - Cardiovascular Exam Cardiovascular Exam: REGULAR RHYTHM, RRR, +S1, +S2 - GI/Abdominal Exam GI & Abdominal Exam: Soft, Normal Bowel Sounds. absent: Distended, Tenderness Additional comments: PEG in place. - Extremities Exam Extremities Exam: Full ROM, Normal Inspection - Neurological Exam Neurological Exam: Alert, Awake, CN II-XII Intact, Oriented x3 - Psychiatric Exam Psychiatric exam: Normal Affect, Normal Mood - Skin Skin Exam: Dry, Intact Assessment and Plan - Assessment and Plan (Free Text) Assessment: 73 yo male with PMHx of oropharyngeal SCC s/p total larygnectomy with trach but had recurrence. Brought to [facility] for worsening SOB and hemoptysis. Found to have increased leukocytosis. CT scan showed bullous emphysema but no infiltrate. Started on IV Vancomycin and Zosyn. Obtain procalcitonin value. Cannot rule out leukocytosis secondary to oropharyngeal SCC. Continue antibiotics in meantime. Pharyngeal mass has increased in size compared to prior studies. Received 3 days of Zosyn. Clinically the patient appears better but still with leukocytosis. Would check urine cultures and urinalysis as well. Carr cultures. Leukocytosis above patient's prior baseline with mild left shift. Cannot rule out an early pneumonia. Also cannot rule out whether increased leukocytosis may be secondary to the patient's recurrent oropharyngeal SCC. Persistent leukocytosis. Remains afebrile. Persistent leukocytosis. Given 3 days of Zosyn. Still on Vancomycin IV. Monitor patient at this point. Cultures negative. No clear explanation for leukocytosis at this point. Leukocytosis increasing today. Fever of 102.3 F two nights ago. Meropenem and Vancomycin being administered. Vancomycin on hold due to Vancomycin level of 35. Random level now at 18.9. Vancomycin on hold still. Procalcitonin of 0.18. Thank you for allowing me to participate in the care of the patient, we will follow with you.
[2018-07-09] MEDS: Sodium Chloride 0.9% 1,000 ML IV SCH (21:29)
[2018-07-10] MEDS: Acetylcysteine 20% Inhal Soln (4ml) IH SCH ×2 (07:48→13:33)
[2018-07-10] MEDS: Levalbuterol 0.63 MG/3 ML Inhal Soln UD IH SCH ×2 (07:48→13:32)
[2018-07-10 09:43] LABS: BASO # 0.01 K/mm3 (0.0-2.0); BASO % 0.1 % (0.0-3.0); EOS # 0.1 (0.0-0.7); EOS % 0.7 % (1.5-5.0); GRAN # 18.02 (1.4-6.5); HEMOGLOBIN 9.2 g/dL (14.0-18.0); MEAN CELL VOLUME 90.7 fl (80.0-105.0); MEAN CORPUSCULAR HEMOGLOBIN 29.6 pg (25.0-35.0); MEAN CORPUSCULAR HGB CONC 32.6 g/dl (31.0-37.0); MEAN PLATELET VOLUME 10.5 fl (7.0-11.0); MONO # 0.8 (0.1-0.6); MONO % 4.2 % (1.0-6.0); PLATELET COUNT 395 10^3/uL (120.0-450.0); RBC 3.11 10^6/uL (3.5-6.1); RED CELL DISTRIBUTION WIDTH 15.3 % (11.5-14.5)
[2018-07-10] MEDS: Phenytoin 100 mg/4 ml Oral Susp UD PO SCH ×3 (10:12→17:23)
[2018-07-10] MEDS: levETIRAcetam 500 mg/5ml UD cups PO SCH ×2 (10:12→17:23)
[2018-07-10] MEDS: Pantoprazole 40 mg Susp UD PEG SCH (10:12)
[2018-07-10] MEDS: MEROPENEM 500 MG in NS 500 MG/50 ML BAG IVPB SCH ×2 (10:12→21:50)
[2018-07-10 10:14] LABS: EOSINOPHIL 1 % (0.0-3.0); LYMPHOCYTE 2 % (22.0-35.0); MONOCYTE 4 % (1.0-6.0); NEUTROPHIL 93 % (50.0-70.0); PLATELET ESTIMATE NORMAL (NORMAL)
[2018-07-10 10:18] LABS: ALB/GLOB RATIO 0.7 (1.1-1.8); ALBUMIN 2.3 g/dL (3.0-4.8); ALT/SGPT 38 U/L (7-56); AST/SGOT 37 U/L (17-59); BLOOD UREA NITROGEN 29 mg/dL (7-21); CALCIUM 9.8 mg/dL (8.4-10.5); GFR NON-AFRICAN AMERICAN > 60
[2018-07-10] MEDS ORDERED: Vancomycin 1gm in NS 250ml 1 GM/250 ML BAG IVPB SCH (11:45)
[2018-07-10] MEDS: Sodium Chloride 0.9% 1,000 ML IV SCH ×2 (14:38→23:36)
--- NOTE | 2018-07-10 14:52 | CP.PCM.PN ---
Subjective - Date & Time of Evaluation Date of Evaluation: 07/10/18 Time of Evaluation: 14:49 - Subjective Subjective: Hematology/Oncology Progress Note (Dr. Alexandra's Service) Patient seen and assessed at bedside. No acute events noted overnight. Patient denies any further complaints at this time including fevers, chills, headache, chest pain, SOB, abdominal pain, N/V/D/C, changes in urine output, skin changes or any numbness/tingling of any extremity. Objective - Vital Signs/Intake and Output Vital Signs (last 24 hours): Temp Pulse Resp BP Pulse Ox 97.5 F L 85 20 130/60 96 07/10/18 07:46 07/10/18 10:00 07/10/18 07:46 07/10/18 07:46 07/10/18 07:46 Intake and Output: 07/10/18 07/10/18 06:59 18:59 Intake Total 325 Balance 325 - Medications Medications: Current Medications Acetaminophen (Tylenol 650mg/20.3ml Solution Ud) 650 mg PEG Q6H PRN PRN Reason: Temperature Last Admin: 07/08/18 00:19 Dose: 650 mg Acetylcysteine (Acetylcysteine 20%) 4 ml IH TID NAVEEN Last Admin: 07/10/18 13:33 Dose: 4 ml Albuterol/Ipratropium (Duoneb 3 Mg/0.5 Mg (3 Ml) Ud) 3 ml IH TIDRESP PRN PRN Reason: Shortness of Breath Last Admin: 07/06/18 21:46 Dose: 3 ml Baclofen (Lioresal) 5 mg PO TID PRN PRN Reason: Hiccups Guaifenesin/Dextromethorphan (Robitussin Dm) 10 ml PO Q4H PRN PRN Reason: Cough Heparin Sodium (Porcine) (Heparin) 5,000 units SC Q8 [facility]; Protocol Last Admin: 07/10/18 13:15 Dose: 5,000 units Sodium Chloride (Sodium Chloride 0.9%) 1,000 mls @ 100 mls/hr IV .Q10H N[facility]EN Last Admin: 07/10/18 14:38 Dose: 100 mls/hr Meropenem/Sodium Chloride (Merrem Iv 500 Mg/Ns 50 Ml) 500 mg in 50 mls @ 100 mls/hr IVPB Q12 [facility]; Protocol Last Admin: 07/10/18 10:12 Dose: 100 mls/hr Vancomycin HCl (Vancomycin 1gm) 1 gm in 250 mls @ 167 mls/hr IVPB Q12H [facility]; Protocol Last Admin: 07/10/18 11:17 Dose: 167 mls/hr Insulin Human Regular (Humulin R Med) 0 units SC ACHS [facility]; Protocol Levalbuterol HCl (Xopenex) 0.63 mg IH TIDRESP [facility] Last Admin: 07/10/18 13:32 Dose: 0.63 mg Levetiracetam (Keppra) 500 mg PO BID [facility] Last Admin: 07/10/18 10:12 Dose: 500 mg Lorazepam (Ativan) 1 mg IVP Q15M PRN; Protocol PRN Reason: Seizure activity Metoclopramide HCl (Reglan) 5 mg PO DAILY PRN PRN Reason: Constipation Pantoprazole Sodium (Protonix Susp) 40 mg PEG DAILY [facility] Last Admin: 07/10/18 10:12 Dose: 40 mg Phenytoin (Dilantin) 100 mg PO TID [facility] Last Admin: 07/10/18 13:16 Dose: 100 mg - Labs Labs: 07/10/18 09:35 07/10/18 09:35 - Additional Findings Additional findings: - Constitutional Appears: No Acute Distress, Cachectic - Head Exam Head Exam: ATRAUMATIC, NORMOCEPHALIC - Eye Exam Eye Exam: EOMI - ENT Exam ENT Exam: Mucous Membranes Moist - Neck Exam Neck Exam: Full ROM. absent: Lymphadenopathy Additional comments: Trach/stoma in place with collar; No visible secretions noted; No signs of clinical infection of surrounding soft tissues - Respiratory Exam Respiratory Exam: NORMAL BREATHING PATTERN. absent: Decreased Breath Sounds, Accessory Muscle Use, Chest Wall Tenderness, Prolonged Expiratory Phase, Rales, Rhonchi, Wheezes, Respiratory Distress - Cardiovascular Exam Cardiovascular Exam: RRR, +S1, +S2 - GI/Abdominal Exam GI & Abdominal Exam: Soft, Normal Bowel Sounds. 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 Of note, CT soft tissue of neck showed progression of previously recorded laryngeal tumor from 2.5x3.1x6.4cm to now 5.0x6.8x10.3cm. PET/CT reviewed and showed metastatic adenopathy. Patient was also found to bullous emphysema with questionable right sided mucus plug. Radiation Oncology was consulted and patient is undergoing palliative RT. Patient was made DNR/DNI via POLST during this admission. Plan: -PET/CT reviewed and showed metastatic adenopathy -CT soft tissue H/N showed progression of tumor with measurements as stated above -Radiation Oncology consulted, all recommendations appreciated; Continue palliative RT -Pulmonology consulted, all recommendations appreciated; Continue Xopenex, Mucormyst, Duonebs and supplemental O2 as needed -Palliative consultation noted, all recommendations appreciated; Patient made DNR/DNI via POLST -ID consulted, all recommendations appreciated; Currently on Merrem -ENT consulted, all recommendations appreciated; Continue with trach care and management as ordered -Continue tube feeds as ordered; 7 cans of Jevity 1.2 per day -Continue intermittent self suctioning -Continue chest PT -S/P one unit of pRBC's with appropriate rise in H/H seen on CBC; H/H is 9.2/28.2 today (07/10) -Further recommendations as per Dr. Alexandra Patient seen and case discussed with attending, Dr. Ibrahima Hatfield PGY2
--- NOTE | 2018-07-10 15:57 | CP.PCM.PN ---
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 Subsequently in 2016 patient was found to have recurrence of throat CA. He presented most recently in 05/2018 w/ large soft tissue mass in oropharyngeal region; during this visit patient received PEG tube placement. He was to follow up with heme/onc Dr. Cleveland however reported he was unable to make appt due to poor transportation. Patient reports he currently not undergoing radiation/chemotherapy at this time. Remainder of PMHx is significant for COPD, Seizure, and arthritis. He presented to [facility] ED 07/02 w/ complaints of SOB, Hemoptysis, worsening secretions over the past month. Patient reports hemoptysis as light pink tinged mucopurlent sputum does not report overtly bloody or clotted sputum. He says his SOB feels as if he is not getting enough air through his tracheostomy. Patient reported he sees ENT Dr. Tapia for trach management. ID called for evaluation of potential HCAP. CT Chest showing bullous emphysema but no infiltrate. Cannot rule out early infiltrate. Patient still with leukocytosis. On trach collar with supplemental O2. Patient is awake, alert, and answer questions appropriately. He states that he is feeling better today. Patient states that is less SOB and breathing easier. Noted that the patient had fever up to 102.3 F overnight. Patient claims that he feels well and has improved. Repeat blood and urine cultures sent. He remains on Meropenem and IV Vancomycin. Vancomycin on hold given the last trough level was 35. On palliative radiation therapy. Now DNR/DNI. Objective - Vital Signs/Intake and Output Vital Signs (last 24 hours): Temp Pulse Resp BP Pulse Ox 97.5 F L 85 20 130/60 96 07/10/18 07:46 07/10/18 10:00 07/10/18 07:46 07/10/18 07:46 07/10/18 07:46 Intake and Output: 07/10/18 07/10/18 06:59 18:59 Intake Total 325 Balance 325 - Medications Medications: Current Medications Acetaminophen (Tylenol 650mg/20.3ml Solution Ud) 650 mg PEG Q6H PRN PRN Reason: Temperature Last Admin: 07/08/18 00:19 Dose: 650 mg Acetylcysteine (Acetylcysteine 20%) 4 ml IH TID NAVEEN Last Admin: 07/10/18 13:33 Dose: 4 ml Albuterol/Ipratropium (Duoneb 3 Mg/0.5 Mg (3 Ml) Ud) 3 ml IH TIDRESP PRN PRN Reason: Shortness of Breath Last Admin: 07/06/18 21:46 Dose: 3 ml Baclofen (Lioresal) 5 mg PO TID PRN PRN Reason: Hiccups Guaifenesin/Dextromethorphan (Robitussin Dm) 10 ml PO Q4H PRN PRN Reason: Cough Heparin Sodium (Porcine) (Heparin) 5,000 units SC Q8 [facility]; Protocol Last Admin: 07/10/18 13:15 Dose: 5,000 units Sodium Chloride (Sodium Chloride 0.9%) 1,000 mls @ 100 mls/hr IV .Q10H [facility] Last Admin: 07/10/18 14:38 Dose: 100 mls/hr Meropenem/Sodium Chloride (Merrem Iv 500 Mg/Ns 50 Ml) 500 mg in 50 mls @ 100 mls/hr IVPB Q12 [facility]; Protocol Last Admin: 07/10/18 10:12 Dose: 100 mls/hr Vancomycin HCl (Vancomycin 1gm) 1 gm in 250 mls @ 167 mls/hr IVPB Q12H [facility]; Protocol Last Admin: 07/10/18 11:17 Dose: 167 mls/hr Insulin Human Regular (Humulin R Med) 0 units SC ACHS [facility]; Protocol Levalbuterol HCl (Xopenex) 0.63 mg IH TIDRESP [facility] Last Admin: 07/10/18 13:32 Dose: 0.63 mg Levetiracetam (Keppra) 500 mg PO BID [facility] Last Admin: 07/10/18 10:12 Dose: 500 mg Lorazepam (Ativan) 1 mg IVP Q15M PRN; Protocol PRN Reason: Seizure activity Metoclopramide HCl (Reglan) 5 mg PO DAILY PRN PRN Reason: Constipation Pantoprazole Sodium (Protonix Susp) 40 mg PEG DAILY [facility] Last Admin: 07/10/18 10:12 Dose: 40 mg Phenytoin (Dilantin) 100 mg PO TID NAVEEN Last Admin: 07/10/18 13:16 Dose: 100 mg - Labs Labs: 07/10/18 09:35 07/10/18 09:35 - Constitutional Appears: Non-toxic, No Acute Distress, Chronically Ill - Head Exam Head Exam: ATRAUMATIC, NORMOCEPHALIC - Eye Exam Eye Exam: EOMI, PERRL Pupil Exam: NORMAL ACCOMODATION, PERRL - ENT Exam ENT Exam: Mucous Membranes Moist, Normal External Ear Exam, TM's Normal Bilaterally - Neck Exam Neck Exam: Full ROM Additional comments: stoma in place. - Respiratory Exam Respiratory Exam: Clear to Ausculation Bilateral, NORMAL BREATHING PATTERN. absent: Rales, Rhonchi, Wheezes - Cardiovascular Exam Cardiovascular Exam: REGULAR RHYTHM, RRR, +S1, +S2 - GI/Abdominal Exam GI & Abdominal Exam: Soft, Normal Bowel Sounds. absent: Distended, Tenderness Additional comments: PEG in place. 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 Brought to [facility] for worsening SOB and hemoptysis. Found to have increased leukocytosis. CT scan showed bullous emphysema but no infiltrate. Started on IV Vancomycin and Zosyn. Obtain procalcitonin value. Cannot rule out leukocytosis secondary to oropharyngeal SCC. Continue antibiotics in meantime. Pharyngeal mass has increased in size compared to prior studies. Received 3 days of Zosyn. Clinically the patient appears better but still with leukocytosis. Would check urine cultures and urinalysis as well. Carr cultures. Leukocytosis above patient's prior baseline with mild left shift. Cannot rule out an early pneumonia. Also cannot rule out whether increased leukocytosis may be secondary to the patient's recurrent oropharyngeal SCC. Persistent leukocytosis. Remains afebrile. Persistent leukocytosis. Given 3 days of Zosyn. Still on Vancomycin IV. Monitor patient at this point. Cultures negative. No clear explanation for leukocytosis at this point. Leukocytosis increasing today. Fever of 102.3 F two nights ago. Meropenem and Vancomycin being administered. Vancomycin on hold due to Vancomycin level of 35. Random level now at 11.5 from 18.9. Currently with leukocytosis of 20. Stop Vancomycin for now. Procalcitonin of 0.18. Thank you for allowing me to participate in the care of the patient, we will follow with you.
[2018-07-10] MEDS ORDERED: Insulin Reg-MEDIUM-Coverage SC SCH (16:30)
[2018-07-10] MEDS: Insulin Reg-HIGH-Coverage SC SCH (16:41)
--- NOTE | 2018-07-10 16:45 | CP.PCM.PN ---
<Alexey Mahomod - Last Filed: 07/10/18 17:01> Subjective - Date & Time of Evaluation Date of Evaluation: 07/10/18 Time of Evaluation: 11:00 - Subjective Subjective: Alexey Mahmood DO, PGY-1 Hospitalist Progress Note for Dr. Edge Patient was seen and examined at bedside this AM. He offers no new complaints th is AM and states his breathing is improved. He is suctioning himself well. His appears anxious and expressed her desire for us to do as much for him as possible. Objective - Vital Signs/Intake and Output Vital Signs (last 24 hours): Temp Pulse Resp BP Pulse Ox 97.5 F L 85 20 130/60 96 07/10/18 07:46 07/10/18 14:00 07/10/18 07:46 07/10/18 07:46 07/10/18 07:46 Intake and Output: 07/10/18 07/10/18 06:59 18:59 Intake Total 325 Balance 325 - Medications Medications: Current Medications Acetaminophen (Tylenol 650mg/20.3ml Solution Ud) 650 mg PEG Q6H PRN PRN Reason: Temperature Last Admin: 07/08/18 00:19 Dose: 650 mg Acetylcysteine (Acetylcysteine 20%) 4 ml IH TID NAVEEN Last Admin: 07/10/18 13:33 Dose: 4 ml Albuterol/Ipratropium (Duoneb 3 Mg/0.5 Mg (3 Ml) Ud) 3 ml IH TIDRESP PRN PRN Reason: Shortness of Breath Last Admin: 07/06/18 21:46 Dose: 3 ml Baclofen (Lioresal) 5 mg PO TID PRN PRN Reason: Hiccups Guaifenesin/Dextromethorphan (Robitussin Dm) 10 ml PO Q4H PRN PRN Reason: Cough Heparin Sodium (Porcine) (Heparin) 5,000 units SC Q8 [facility]; Protocol Last Admin: 07/10/18 13:15 Dose: 5,000 units Sodium Chloride (Sodium Chloride 0.9%) 1,000 mls @ 100 mls/hr IV .Q10H [facility] Last Admin: 07/10/18 14:38 Dose: 100 mls/hr Meropenem/Sodium Chloride (Merrem Iv 500 Mg/Ns 50 Ml) 500 mg in 50 mls @ 100 mls/hr IVPB Q12 [facility]; Protocol Last Admin: 07/10/18 10:12 Dose: 100 mls/hr Vancomycin HCl (Vancomycin 1gm) 1 gm in 250 mls @ 167 mls/hr IVPB Q12H [facility]; Protocol Last Admin: 07/10/18 11:17 Dose: 167 mls/hr Insulin Human Regular (Humulin R High) 0 units SC ACHS [facility]; Protocol Levalbuterol HCl (Xopenex) 0.63 mg IH TIDRESP [facility] Last Admin: 07/10/18 13:32 Dose: 0.63 mg Levetiracetam (Keppra) 500 mg PO BID [facility] Last Admin: 07/10/18 10:12 Dose: 500 mg Lorazepam (Ativan) 1 mg IVP Q15M PRN; Protocol PRN Reason: Seizure activity Metoclopramide HCl (Reglan) 5 mg PO DAILY PRN PRN Reason: Constipation Pantoprazole Sodium (Protonix Susp) 40 mg PEG DAILY [facility] Last Admin: 07/10/18 10:12 Dose: 40 mg Phenytoin (Dilantin) 100 mg PO TID [facility] Last Admin: 07/10/18 13:16 Dose: 100 mg - Labs Labs: 07/10/18 09:35 07/10/18 09:35 - Constitutional Appears: No Acute Distress, Cachectic, Chronically Ill - Head Exam Head Exam: ATRAUMATIC, NORMOCEPHALIC - Eye Exam Eye Exam: EOMI, Normal appearance, PERRL - ENT Exam ENT Exam: Mucous Membranes Moist - Neck Exam Neck Exam: Full ROM Additional comments: tracheostomy in place, clean, dry, intact, minimal secretions - Respiratory Exam Respiratory Exam: Decreased Breath Sounds (slight decreased breath sounds b/l bases), Clear to Ausculation Bilateral, NORMAL BREATHING PATTERN. absent: Rales, Rhonchi, Wheezes - Cardiovascular Exam Cardiovascular Exam: REGULAR RHYTHM, RRR, +S1, +S2. absent: Gallop, Rubs, Murmur - GI/Abdominal Exam GI & Abdominal Exam: Soft, Normal Bowel Sounds. absent: Guarding, Tenderness Additional comments: PEG tube in place - Extremities Exam Extremities Exam: absent: Joint Swelling, Pedal Edema - Neurological Exam Neurological Exam: Alert, Awake, Oriented x3 - Psychiatric Exam Psychiatric exam: Flat Affect, Normal Affect - Skin Skin Exam: Dry, Intact, Warm Assessment and Plan - Assessment and Plan (Free Text) Assessment: 73 yo M with PMH of oropharyngeal CA (s/p laryngectomy and tracheostomy), COPD, seizure disorder, and arthritis admitted for worsening SOB, secretions, and hemoptysis. He is now stable and has not had any additional apneic episodes. He is no longer complaining of hiccups and has not been receiving baclofen. Plan: 1. Worsening Secretions/Hemoptysis Now suctioning himself and clearing secretions well Continue baclofen PRN Continue xopenex PRN Chest PT likely no longer needed now that patient is suctioning himself Continue tube feeds, aspiration pxns F/u SW recs regarding [facility] placement vs TCU vs home Currently receiving palliative radiation M-F Need to have family meeting to discuss plan going forward 2. Persistent leukocytosis May be 2/2 underlying malignancy vs occult infectious process UA with pyuria, small leukocyte esterase Urine cx negative Per ID, persistent leukocytosis is concerning, may represent occult infectious process such as PNA Vanco held because levels too high Was febrile two days ago with Tmax 102.4, but is now afebrile Continue to monitor ID following, recs appreciated 3. Hyperglycemia Patient has no known hx of DM2 but was persistently hyperglycemic last night with blood sugar max of 456 May be 2/2 steroids vs reactionary vs undiagnosed DM2 Will get Hgb A1c Start on ISS medium coverage 4. COPD CT chest with many emphysematous blebs c/w hx of COPD Currently not in exacerbation Duo-neb and/or xopenex if needed Monitor closely 5. Hypercalcemia Stable at 9.8 today Continue NS @ 100 cc/hr 6. Hypokalemia Resolved, continue to monitor 7. 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 Goldberg May also be able to receive palliative chemotherapy from Dr. Alexandra after discharge Per palliative care, patient now has POLST stating DNR/DNI Palliative care, Dr. Goldberg, and Dr. Alexandra following, recs appreciated Need to have family meeting with entire team to discuss plan going forward 8. Hx of seizure disorder Continue keppra and dilantin GI/DVT PPX: protonix, SCD, SC heparin DNR/DNI Tube feedings w/aspiration pxns, adjustments PRN per consulting networking engineer Monitor on remote tele Case and plan reviewed and discussed with my attending Dr. Minesh Mahmood DO IM Resident PGY-1 Pager: [phone] <Lucio Edge - Last Filed: 07/10/18 17:13> Objective - Vital Signs/Intake and Output Vital Signs (last 24 hours): Temp Pulse Resp BP Pulse Ox 97.3 F L 80 18 120/68 95 07/10/18 17:03 07/10/18 17:03 07/10/18 17:03 07/10/18 17:03 07/10/18 17:03 Intake and Output: 07/10/18 07/10/18 06:59 18:59 Intake Total 325 Balance 325 - Medications Medications: Current Medications Acetaminophen (Tylenol 650mg/20.3ml Solution Ud) 650 mg PEG Q6H PRN PRN Reason: Temperature Last Admin: 07/08/18 00:19 Dose: 650 mg Acetylcysteine (Acetylcysteine 20%) 4 ml IH TID [facility] Last Admin: 07/10/18 13:33 Dose: 4 ml Albuterol/Ipratropium (Duoneb 3 Mg/0.5 Mg (3 Ml) Ud) 3 ml IH TIDRESP PRN PRN Reason: Shortness of Breath Last Admin: 07/06/18 21:46 Dose: 3 ml Baclofen (Lioresal) 5 mg PO TID PRN PRN Reason: Hiccups Guaifenesin/Dextromethorphan (Robitussin Dm) 10 ml PO Q4H PRN PRN Reason: Cough Heparin Sodium (Porcine) (Heparin) 5,000 units SC Q8 [facility]; Protocol Last Admin: 07/10/18 13:15 Dose: 5,000 units Sodium Chloride (Sodium Chloride 0.9%) 1,000 mls @ 100 mls/hr IV .Q10H [facility] Last Admin: 07/10/18 14:38 Dose: 100 mls/hr Meropenem/Sodium Chloride (Merrem Iv 500 Mg/Ns 50 Ml) 500 mg in 50 mls @ 100 mls/hr IVPB Q12 [facility]; Protocol Last Admin: 07/10/18 10:12 Dose: 100 mls/hr Vancomycin HCl (Vancomycin 1gm) 1 gm in 250 mls @ 167 mls/hr IVPB Q12H [facility]; Protocol Last Admin: 07/10/18 11:17 Dose: 167 mls/hr Insulin Human Regular (Humulin R High) 0 units SC ACHS [facility]; Protocol Last Admin: 07/10/18 16:41 Dose: 15 unit Levalbuterol HCl (Xopenex) 0.63 mg IH TIDRESP [facility] Last Admin: 07/10/18 13:32 Dose: 0.63 mg Levetiracetam (Keppra) 500 mg PO BID [facility] Last Admin: 07/10/18 10:12 Dose: 500 mg Lorazepam (Ativan) 1 mg IVP Q15M PRN; Protocol PRN Reason: Seizure activity Metoclopramide HCl (Reglan) 5 mg PO DAILY PRN PRN Reason: Constipation Pantoprazole Sodium (Protonix Susp) 40 mg PEG DAILY [facility] Last Admin: 07/10/18 10:12 Dose: 40 mg Phenytoin (Dilantin) 100 mg PO TID [facility] Last Admin: 07/10/18 13:16 Dose: 100 mg - Labs Labs: 07/10/18 09:35 07/10/18 09:35 Attending/Attestation - Attestation I have personally seen and examined this patient.: Yes I have fully participated in the care of the patient.: Yes I have reviewed all pertinent clinical information, including history, physical exam and plan: Yes Notes (Text): 07/10/18 17:11 Attending note; Patient seen and examined with resident. Patient is alert. Not in any acute distress. Patient is afebrile and nontoxic. 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 1. Shortness of breath; improved significantly. Continue aggressive trach care. 2. Leukocytosis. May be multifactorial secondary to malignancy. Urine culture is negative. Blood cultures with no growth. Patient is afebrile and nontoxic. Repeat cultures negative. We will follow up with ID closely. Currently on IV Merrem. Tracheostomy was changed 07/03/2018. Repeat chest x-rays negative for new infiltrate. 3. Emphysema. Chest CT without contrast radiologist showed bullous emphysema. Continue nebulizer treatments and chest PT. 4. History of oropharyngeal cancer. CT neck shows significant increase in size of the right lower pharyngeal soft tissue mass with occlusion of the area worsens and to prior examination; overall extent in size of the mass has increased; tracheostomy in place. ENT evaluation appreciated. Patient is getting palliative radiation treatment. 5. History of seizure disorder. Continue Keppra and phenytoin. 6. GI/DVT prophylaxis. Protonix/SCDs. 7. Continue PEG feeding. 8. anemia;s/p 1 unit PRBC transfusion yesterday. 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 Palliative care evaluation appreciated. Patient is DNR/DNI. Prognosis is poor. 07/10/18 17:13
[2018-07-10] MEDS: Acetaminophen 650mg/20.3ml solution UD PEG PRN (21:24)
[2018-07-11] MEDS: Insulin Reg-HIGH-Coverage SC SCH ×5 (00:33→21:17)
[2018-07-11] MEDS ORDERED: Insulin Regular 1 UNITS/0.01 ML ML SC STA (01:56)
[2018-07-11 07:11] LABS: BASO # 0.02 K/mm3 (0.0-2.0); BASO % 0.1 % (0.0-3.0); EOS # 0.2 (0.0-0.7); EOS % 0.6 % (1.5-5.0); GRAN # 23.03 (1.4-6.5); GRAN % 90.1 % (50.0-68.0); HEMOGLOBIN 10.2 g/dL (14.0-18.0); LYMPH # 1.2 (1.2-3.4); LYMPH % 4.9 % (22.0-35.0); MEAN CELL VOLUME 91.4 fl (80.0-105.0); MEAN CORPUSCULAR HEMOGLOBIN 29.4 pg (25.0-35.0); MEAN CORPUSCULAR HGB CONC 32.2 g/dl (31.0-37.0); MEAN PLATELET VOLUME 11.3 fl (7.0-11.0); MONO # 1.1 (0.1-0.6); MONO % 4.3 % (1.0-6.0); RBC 3.47 10^6/uL (3.5-6.1); RED CELL DISTRIBUTION WIDTH 15.7 % (11.5-14.5)
[2018-07-11 07:20] LABS: ALB/GLOB RATIO 0.7 (1.1-1.8); ALBUMIN 2.4 g/dL (3.0-4.8); ALT/SGPT 36 U/L (7-56); AST/SGOT 40 U/L (17-59); BLOOD UREA NITROGEN 31 mg/dL (7-21); CALCIUM 9.9 mg/dL (8.4-10.5); GFR NON-AFRICAN AMERICAN > 60
[2018-07-11 07:23] LABS: WHITE BLOOD COUNT 25.5 10^3/uL (4.5-11.0)
[2018-07-11] MEDS: Acetylcysteine 20% Inhal Soln (4ml) IH SCH ×4 (08:16→20:42)
[2018-07-11] MEDS: Levalbuterol 0.63 MG/3 ML Inhal Soln UD IH SCH ×3 (08:17→20:42)
[2018-07-11] MEDS: MEROPENEM 500 MG in NS 500 MG/50 ML BAG IVPB SCH ×2 (09:43→21:24)
[2018-07-11] MEDS: Phenytoin 100 mg/4 ml Oral Susp UD PO SCH ×3 (09:44→17:27)
[2018-07-11] MEDS: Pantoprazole 40 mg Susp UD PEG SCH (09:44)
[2018-07-11] MEDS: levETIRAcetam 500 mg/5ml UD cups PO SCH ×2 (09:44→17:27)
[2018-07-11] MEDS: Sodium Chloride 0.9% 1,000 ML IV SCH (09:45)
--- NOTE | 2018-07-11 10:13 | RAD ---
Date of service: 07/11/2018 HISTORY: fever COMPARISON: 07/08/2018 FINDINGS: LUNGS: There is a linear infiltrate in the right midlung field. PLEURA: No significant pleural effusion identified, no pneumothorax apparent. CARDIOVASCULAR: Aortic calcification Normal cardiac size. No pulmonary vascular congestion. OSSEOUS STRUCTURES: No significant abnormalities. VISUALIZED UPPER ABDOMEN: Normal. OTHER FINDINGS: None. IMPRESSION: Right-sided infiltrate
--- NOTE | 2018-07-11 10:37 | CP.PCM.PN ---
Subjective - Date & Time of Evaluation Date of Evaluation: 07/11/18 Time of Evaluation: 10:37 - Subjective Subjective: Hematology/Oncology Progress Note (Dr. Alexandra's Service) Patient seen and assessed at bedside. No acute events noted overnight. Patient to have radiation done this AM. Patient denies any further complaints at this time including fevers, chills, headache, chest pain, SOB, abdominal pain, N/V/D/C, changes in urine output, skin changes or any numbness/tingling of any extremity. Objective - Vital Signs/Intake and Output Vital Signs (last 24 hours): Temp Pulse Resp BP Pulse Ox 98.3 F 86 20 124/70 100 07/11/18 08:37 07/11/18 08:37 07/11/18 08:37 07/11/18 08:37 07/11/18 08:37 Intake and Output: 07/11/18 07/11/18 06:59 18:59 Intake Total 3595 Output Total 1300 Balance 2295 - Medications Medications: Current Medications Acetaminophen (Tylenol 650mg/20.3ml Solution Ud) 650 mg PEG Q6H PRN PRN Reason: Temperature Last Admin: 07/10/18 21:24 Dose: 650 mg Acetylcysteine (Acetylcysteine 20%) 4 ml IH TID [facility] Last Admin: 07/11/18 08:16 Dose: 4 ml Albuterol/Ipratropium (Duoneb 3 Mg/0.5 Mg (3 Ml) Ud) 3 ml IH TIDRESP PRN PRN Reason: Shortness of Breath Last Admin: 07/06/18 21:46 Dose: 3 ml Baclofen (Lioresal) 5 mg PO TID PRN PRN Reason: Hiccups Guaifenesin/Dextromethorphan (Robitussin Dm) 10 ml PO Q4H PRN PRN Reason: Cough Heparin Sodium (Porcine) (Heparin) 5,000 units SC Q8 [facility]; Protocol Last Admin: 07/11/18 05:47 Dose: 5,000 units Sodium Chloride (Sodium Chloride 0.9%) 1,000 mls @ 100 mls/hr IV .Q10H [facility] Last Admin: 07/11/18 09:45 Dose: 100 mls/hr Vancomycin HCl (Vancomycin 1gm) 1 gm in 250 mls @ 167 mls/hr IVPB Q12H [facility]; Pro tocol Last Admin: 07/10/18 11:17 Dose: 167 mls/hr Meropenem/Sodium Chloride (Merrem Iv 500 Mg/Ns 50 Ml) 500 mg in 50 mls @ 100 mls/hr IVPB Q12 [facility]; Protocol Last Admin: 07/11/18 09:43 Dose: 100 mls/hr Insulin Human Regular (Humulin R High) 0 units SC ACHS [facility]; Protocol Last Admin: 07/11/18 08:33 Dose: 10 unit Levalbuterol HCl (Xopenex) 0.63 mg IH TIDRESP [facility] Last Admin: 07/11/18 08:17 Dose: 0.63 mg Levetiracetam (Keppra) 500 mg PO BID [facility] Last Admin: 07/11/18 09:44 Dose: 500 mg Lorazepam (Ativan) 1 mg IVP Q15M PRN; Protocol PRN Reason: Seizure activity Metoclopramide HCl (Reglan) 5 mg PO DAILY PRN PRN Reason: Constipation Pantoprazole Sodium (Protonix Susp) 40 mg PEG DAILY [facility] Last Admin: 07/11/18 09:44 Dose: 40 mg Phenytoin (Dilantin) 100 mg PO TID [facility] Last Admin: 07/11/18 09:44 Dose: 100 mg - Labs Labs: 07/11/18 07:00 07/11/18 07:00 - Additional Findings Additional findings: - Constitutional Appears: No Acute Distress, Cachectic - Head Exam Head Exam: ATRAUMATIC, NORMOCEPHALIC - Eye Exam Eye Exam: EOMI - ENT Exam ENT Exam: Mucous Membranes Dry Additional comments: Tongue noted to have ulcerations - Neck Exam Neck Exam: Full ROM. absent: Lymphadenopathy Additional comments: Trach/stoma in place with collar; No visible secretions noted; No signs of clinical infection of surrounding soft tissues - Respiratory Exam Respiratory Exam: NORMAL BREATHING PATTERN. absent: Decreased Breath Sounds, Accessory Muscle Use, Chest Wall Tenderness, Prolonged Expiratory Phase, Rales, Rhonchi, Wheezes, Respiratory Distress - Cardiovascular Exam Cardiovascular Exam: RRR, +S1, +S2 - GI/Abdominal Exam GI & Abdominal Exam: Soft, Normal Bowel Sounds. 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 Of note, CT soft tissue of neck showed progression of previously recorded laryngeal tumor from 2.5x3.1x6.4cm to now 5.0x6.8x10.3cm. PET/CT reviewed and showed metastatic adenopathy. Patient was also found to bullous emphysema with questionable right sided mucus plug. Radiation Oncology was consulted and patient is undergoing palliative RT. Patient was made DNR/DNI via POLST during this admission. Plan: -PET/CT reviewed and showed metastatic adenopathy -CT soft tissue H/N showed progression of tumor with measurements as stated above -Radiation Oncology consulted, all recommendations appreciated; Continue palliative RT (Completed 12/07 anticipated treatments) -Pulmonology consulted, all recommendations appreciated; Continue Xopenex, Mucormyst, Duonebs and supplemental O2 as needed -Palliative consultation noted, all recommendations appreciated; Patient made DNR/DNI via POLST -ID consulted, all recommendations appreciated; Currently on Merrem -ENT consulted, all recommendations appreciated; Continue with trach care and management as ordered -Continue tube feeds as ordered; 7 cans of Jevity 1.2 per day -Continue intermittent self suctioning -Continue chest PT -S/P one unit of pRBC's with appropriate rise in H/H seen on CBC; H/H currently stable at 10.2/31.7 -Family meeting planned for today (07/11) to discuss patients disposition -Further recommendations as per Dr. Alexandra Patient seen and case discussed with attending, Dr. Ibrahima Hatfield PGY2
--- NOTE | 2018-07-11 11:07 | CP.PCM.PN ---
Subjective - Date & Time of Evaluation Date of Evaluation: 07/11/18 Time of Evaluation: 10:00 - Subjective Subjective: alert, offers no complaints Objective - Vital Signs/Intake and Output Vital Signs (last 24 hours): Temp Pulse Resp BP Pulse Ox 98.3 F 86 20 124/70 100 07/11/18 08:37 07/11/18 08:37 07/11/18 08:37 07/11/18 08:37 07/11/18 08:37 Intake and Output: 07/11/18 07/11/18 06:59 18:59 Intake Total 3595 Output Total 1300 Balance 2295 - Medications Medications: Current Medications Acetaminophen (Tylenol 650mg/20.3ml Solution Ud) 650 mg PEG Q6H PRN PRN Reason: Temperature Last Admin: 07/10/18 21:24 Dose: 650 mg Acetylcysteine (Acetylcysteine 20%) 4 ml IH TID [facility] Last Admin: 07/11/18 08:16 Dose: 4 ml Albuterol/Ipratropium (Duoneb 3 Mg/0.5 Mg (3 Ml) Ud) 3 ml IH TIDRESP PRN PRN Reason: Shortness of Breath Last Admin: 07/06/18 21:46 Dose: 3 ml Baclofen (Lioresal) 5 mg PO TID PRN PRN Reason: Hiccups Guaifenesin/Dextromethorphan (Robitussin Dm) 10 ml PO Q4H PRN PRN Reason: Cough Heparin Sodium (Porcine) (Heparin) 5,000 units SC Q8 [facility]; Protocol Last Admin: 07/11/18 05:47 Dose: 5,000 units Sodium Chloride (Sodium Chloride 0.9%) 1,000 mls @ 100 mls/hr IV .Q10H [facility] Last Admin: 07/11/18 09:45 Dose: 100 mls/hr Vancomycin HCl (Vancomycin 1gm) 1 gm in 250 mls @ 167 mls/hr IVPB Q12H [facility]; Protocol Last Admin: 07/10/18 11:17 Dose: 167 mls/hr Meropenem/Sodium Chloride (Merrem Iv 500 Mg/Ns 50 Ml) 500 mg in 50 mls @ 100 mls/hr IVPB Q12 [facility]; Protocol Last Admin: 07/11/18 09:43 Dose: 100 mls/hr Insulin Human Regular (Humulin R High) 0 units SC ACHS [facility]; Protocol Last Admin: 07/11/18 08:33 Dose: 10 unit Levalbuterol HCl (Xopenex) 0.63 mg IH TIDRESP [facility] Last Admin: 07/11/18 08:17 Dose: 0.63 mg Levetiracetam (Keppra) 500 mg PO BID [facility] Last Admin: 07/11/18 09:44 Dose: 500 mg Lorazepam (Ativan) 1 mg IVP Q15M PRN; Protocol PRN Reason: Seizure activity Metoclopramide HCl (Reglan) 5 mg PO DAILY PRN PRN Reason: Constipation Pantoprazole Sodium (Protonix Susp) 40 mg PEG DAILY [facility] Last Admin: 07/11/18 09:44 Dose: 40 mg Phenytoin (Dilantin) 100 mg PO TID [facility] Last Admin: 07/11/18 09:44 Dose: 100 mg - Labs Labs: 07/11/18 07:00 07/11/18 07:00 - Constitutional Appears: Chronically Ill - Eye Exam Eye Exam: Normal appearance, PERRL - ENT Exam ENT Exam: Mucous Membranes Moist - Neck Exam Additional comments: trach to 02 collar, site dry - Respiratory Exam Respiratory Exam: Decreased Breath Sounds, Rhonchi, NORMAL BREATHING PATTERN - Cardiovascular Exam Cardiovascular Exam: REGULAR RHYTHM, +S1, +S2 - GI/Abdominal Exam GI & Abdominal Exam: Soft, Normal Bowel Sounds Additional comments: g tube patent - Extremities Exam Extremities Exam: Normal Capillary Refill, Pedal Edema - Neurological Exam Neurological Exam: Alert, Oriented x3 - Skin Skin Exam: Dry, Warm Assessment and Plan - Assessment and Plan (Free Text) Assessment: 73 year old male with history of laryngeal cancer, COPD and seizure disorder who is admitted with shortness of breath, weakness, leukocytosis, hypercalcemia and hyperglycemia. Found to have progression of layngneal cancer and airway obstruction, currently receiving palliative XRT. The patient is alert/ oriented. Offers no complaints. Berkley GIRALDO and Kavitha met with him to discuss future discharge planning needs. We explained that his son Haresh is not well and therefore unable to assist with hos care needs. We also explained that with his multiple medical needs and lack of family support, he could not be managed safely at home. We suggested a family meeting to which the patient agrees. Mr Bermeo requesting that we involve both his daughter and sister in discharge planning process. SW will arrange for family meeting today in order to discuss goals of care. SW and I spoke with patient's sister, Cary via speaker phone. We had conversation in the patients presence. also at bedside. The patient is awake, but lethargic We explained that he due to patients medical needs, he cou ld no longer be cared for at home. Explained that family would need to assist with medical applications for placement in facility. We did not speak about hospice care because patient had previously indicated that he wanted to continue XRT therapy. If Mr Bermeo continues to decline radiation treatment, will discuss option for hospice care. Time spent with patient /family members in goals of care discussion, 60 minutes Plan: Continue XRT therapy as prescribed Self suctioning, continue Baclofen, Xopenex Continue tube feedings Monitor for hyperglycemia steroids vs new DM Hypercalcemia resolved, continue IVF's
[2018-07-11] MEDS ORDERED: Linezolid 600 mg in D5W 300 ml 600 MG/300 ML BAG IVPB SCH (11:30)
--- NOTE | 2018-07-11 13:26 | CP.PCM.PN ---
<Alexey Mahmood - Last Filed: 07/11/18 14:10> Subjective - Date & Time of Evaluation Date of Evaluation: 07/11/18 Time of Evaluation: 09:45 - Subjective Subjective: Alexey Mahmood DO, PGY-1 Hospitalist Progress Note for Dr. Edge Patient was seen and examined at bedside this AM. He appears lethargic and more acutely ill than prior days. He was febrile overnight with Tmax of 101.7. Plan for family meeting today to discuss plan going forward. Objective - Vital Signs/Intake and Output Vital Signs (last 24 hours): Temp Pulse Resp BP Pulse Ox 98.3 F 86 20 124/70 100 07/11/18 08:37 07/11/18 08:37 07/11/18 08:37 07/11/18 08:37 07/11/18 08:37 Intake and Output: 07/11/18 07/11/18 06:59 18:59 Intake Total 3595 Output Total 1300 Balance 2295 - Medications Medications: Current Medications Acetaminophen (Tylenol 650mg/20.3ml Solution Ud) 650 mg PEG Q6H PRN PRN Reason: Temperature Last Admin: 07/10/18 21:24 Dose: 650 mg Acetylcysteine (Acetylcysteine 20%) 4 ml IH TID [facility] Last Admin: 07/11/18 08:16 Dose: 4 ml Albuterol/Ipratropium (Duoneb 3 Mg/0.5 Mg (3 Ml) Ud) 3 ml IH TIDRESP PRN PRN Reason: Shortness of Breath Last Admin: 07/06/18 21:46 Dose: 3 ml Baclofen (Lioresal) 5 mg PO TID PRN PRN Reason: Hiccups Guaifenesin/Dextromethorphan (Robitussin Dm) 10 ml PO Q4H PRN PRN Reason: Cough Heparin Sodium (Porcine) (Heparin) 5,000 units SC Q8 [facility]; Protocol Last Admin: 07/11/18 05:47 Dose: 5,000 units Sodium Chloride (Sodium Chloride 0.9%) 1,000 mls @ 100 mls/hr IV .Q10H [facility] Last Admin: 07/11/18 09:45 Dose: 100 mls/hr Meropenem/Sodium Chloride (Merrem Iv 500 Mg/Ns 50 Ml) 500 mg in 50 mls @ 100 mls/hr IVPB Q12 [facility]; Protocol Last Admin: 07/11/18 09:43 Dose: 100 mls/hr Insulin Human Regular (Humulin R High) 0 units SC ACHS [facility]; Protocol Last Admin: 07/11/18 12:45 Dose: 10 unit Levalbuterol HCl (Xopenex) 0.63 mg IH TIDRESP [facility] Last Admin: 07/11/18 08:17 Dose: 0.63 mg Levetiracetam (Keppra) 500 mg PO BID [facility] Last Admin: 07/11/18 09:44 Dose: 500 mg Lorazepam (Ativan) 1 mg IVP Q15M PRN; Protocol PRN Reason: Seizure activity Metoclopramide HCl (Reglan) 5 mg PO DAILY PRN PRN Reason: Constipation Pantoprazole Sodium (Protonix Susp) 40 mg PEG DAILY [facility] Last Admin: 07/11/18 09:44 Dose: 40 mg Phenytoin (Dilantin) 100 mg PO TID [facility] Last Admin: 07/11/18 09:44 Dose: 100 mg - Labs Labs: 07/11/18 07:00 07/11/18 07:00 - Constitutional Appears: Cachectic, Chronically Ill - Head Exam Head Exam: ATRAUMATIC, NORMOCEPHALIC - Eye Exam Eye Exam: EOMI, Normal appearance, PERRL - ENT Exam Additional comments: tracheostomy in place - Neck Exam Additional comments: tracheostomy in place - Respiratory Exam Respiratory Exam: Decreased Breath Sounds (greatest at bases). absent: Rales, Rhonchi, Wheezes, Respiratory Distress - Cardiovascular Exam Cardiovascular Exam: REGULAR RHYTHM, RRR, +S1, +S2. absent: Gallop, Rubs, Murmur - GI/Abdominal Exam GI & Abdominal Exam: Soft. absent: Guarding Additional comments: cachectic appearing - Extremities Exam Extremities Exam: absent: Joint Swelling, Pedal Edema - Neurological Exam Neurological Exam: Alert, Oriented x3 - Psychiatric Exam Psychiatric exam: Flat Affect - Skin Skin Exam: Dry, Intact, Warm Assessment and Plan - Assessment and Plan (Free Text) Assessment: 73 yo M with PMH of oropharyngeal CA (s/p laryngectomy and tracheostomy), COPD, seizure disorder, and arthritis admitted for worsening SOB, secretions, and hemoptysis. He has been spiking fevers and looks worse. Since he has a poor prognosis overall, the plan is for a family meeting today to discuss plan moving forward. Plan: 1. Worsening Secretions/Hemoptysis Now suctioning himself and clearing secretions well Continue aggressive suctioning as needed 2. Persistent leukocytosis Patient was again febrile overnight with Tmax of 101.7 May be 2/2 underlying malignancy vs occult infectious process UA with pyuria, small leukocyte esterase, however urine cx negative to date Per ID, persistent leukocytosis is concerning, may represent occult infectious process such as PNA Vanco restarted ID following, recs appreciated 3. Hx of oropharyngeal SCC Patient looks worse today and is persistently febrile with leukocytosis Per palliative care, patient now has POLST stating DNR/DNI Family meeting to discuss plan going forward scheduled for today Palliative care, Dr. Goldberg, and Dr. Alexandra following, recs appreciated 4. Hyperglycemia Improved on ISS, continue 5. Hypercalcemia Initial hypercalcemia was likely 2/2 worsening tumor burden Stable at 9.9 today Continue NS @ 100 cc/hr 6. Hypokalemia Resolved, continue to monitor 7. Hx of seizure disorder Continue keppra and dilantin GI/DVT PPX: protonix, SCD, SC heparin DNR/DNI Tube feedings w/aspiration pxns, adjustments PRN per reactor fueling supervisor Monitor on remote tele Case and plan reviewed and discussed with my attending Dr. Minesh Mahmood, DO IM Resident PGY-1 Pager: [phone] <Lucio Edge - Last Filed: 07/12/18 16:26> Objective - Vital Signs/Intake and Output Vital Signs (last 24 hours): Temp Pulse Resp BP Pulse Ox 98.9 F 78 19 123/62 99 07/12/18 16:16 07/12/18 16:16 07/12/18 16:16 07/12/18 16:16 07/12/18 16:16 Intake and Output: 07/12/18 07/12/18 06:59 18:59 Intake Total 1775 Output Total 575 Balance 1200 - Medications Medications: Current Medications Acetaminophen (Tylenol 650mg/20.3ml Solution Ud) 650 mg PEG Q6H PRN PRN Reason: Temperature Last Admin: 07/10/18 21:24 Dose: 650 mg Acetylcysteine (Acetylcysteine 20%) 4 ml IH TID [facility] Last Admin: 07/12/18 13:24 Dose: 4 ml Albuterol/Ipratropium (Duoneb 3 Mg/0.5 Mg (3 Ml) Ud) 3 ml IH TIDRESP PRN PRN Reason: Shortness of Breath Last Admin: 07/06/18 21:46 Dose: 3 ml Baclofen (Lioresal) 5 mg PO TID PRN PRN Reason: Hiccups Guaifenesin/Dextromethorphan (Robitussin Dm) 10 ml PO Q4H PRN PRN Reason: Cough Heparin Sodium (Porcine) (Heparin) 5,000 units SC Q8 [facility]; Protocol Last Admin: 07/12/18 13:46 Dose: 5,000 units Sodium Chloride (Sodium Chloride 0.9%) 1,000 mls @ 100 mls/hr IV .Q10H [facility] Last Admin: 07/12/18 01:06 Dose: 100 mls/hr Meropenem/Sodium Chloride (Merrem Iv 500 Mg/Ns 50 Ml) 500 mg in 50 mls @ 100 mls/hr IVPB Q12 [facility]; Protocol Last Admin: 07/12/18 09:56 Dose: 100 mls/hr Insulin Human Regular (Humulin R High) 0 units SC ACHS [facility]; Protocol Last Admin: 07/12/18 12:42 Dose: 2 unit Levalbuterol HCl (Xopenex) 0.63 mg IH TIDRESP [facility] Last Admin: 07/12/18 13:24 Dose: 0.63 mg Levetiracetam (Keppra) 500 mg PO BID [facility] Last Admin: 07/12/18 09:45 Dose: 500 mg Lorazepam (Ativan) 1 mg IVP Q15M [facility]N; Protocol PRN Reason: Seizure activity Metoclopramide HCl (Reglan) 5 mg PO DAILY PRN PRN Reason: Constipation Pantoprazole Sodium (Protonix Susp) 40 mg PEG DAILY [facility] Last Admin: 07/12/18 09:45 Dose: 40 mg Phenytoin (Dilantin) 100 mg PO TID [facility] Last Admin: 07/12/18 13:46 Dose: 100 mg Saliva Substitute (Saliva Substitute) 0 ml PO QID PRN PRN Reason: Dry mouth Last Admin: 07/12/18 13:49 Dose: 1 ml - Labs Labs: 07/12/18 06:00 07/12/18 06:00 Attending/Attestation - Attestation I have personally seen and examined this patient.: Yes I have fully participated in the care of the patient.: Yes I have reviewed all pertinent clinical information, including history, physical exam and plan: Yes Notes (Text): 07/12/18 16:23 Attending note; Patient seen and examined with resident. Patient's by the bedside. Patient is refusing radiation therapy. Patient is alert. Not in any acute distress. fevers on and off. 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 1. Shortness of breath; improved significantly. Continue aggressive trach care. 2. Leukocytosis. Urine culture is negative. Blood cultures with no growth. Patient is afebrile and nontoxic. Repeat cultures negative. We will follow up with ID closely. Currently on IV Merrem. Tracheostomy was changed 07/03/2018. Repeat chest x-rays negative for new infiltrate. 3. Emphysema. Chest CT without contrast radiologist showed bullous emphysema. Continue nebulizer treatments and chest PT. 4. History of oropharyngeal cancer. CT neck shows significant increase in size of the right lower pharyngeal soft tissue mass with occlusion of the area worsens and to prior examination; overall extent in size of the mass has increased; tracheostomy in place. ENT evaluation appreciated. Patient is refusing palliative radiation treatment. 5. History of seizure disorder. Continue Keppra and phenytoin. 6. GI/DVT prophylaxis. Protonix/SCDs. 7. Continue PEG feeding. 8. anemia;s/p 1 unit PRBC transfusion yesterday. Hemoglobin is 10.2. health care social worker evaluation appreciated. Had a family meeting with his and sister on the phone. Palliative care evaluation appreciated. Patient is DNR/DNI.
--- NOTE | 2018-07-11 13:40 | CP.PCM.PN ---
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 He was getting local radiation to the mass. Today, he stated that he did not want to get his treatment. We are planning to touch base with him again tomorrrow to ascertain his long-term goals since it is not clear whether he wants to continue treatment. He did not give us a definitive answer today about resuming or stopping. Objective - Vital Signs/Intake and Output Vital Signs (last 24 hours): Temp Pulse Resp BP Pulse Ox 98.3 F 86 20 124/70 100 07/11/18 08:37 07/11/18 08:37 07/11/18 08:37 07/11/18 08:37 07/11/18 08:37 Intake and Output: 07/11/18 07/11/18 06:59 18:59 Intake Total 3595 Output Total 1300 Balance 2295 - Medications Medications: Current Medications Acetaminophen (Tylenol 650mg/20.3ml Solution Ud) 650 mg PEG Q6H PRN PRN Reason: Temperature Last Admin: 07/10/18 21:24 Dose: 650 mg Acetylcysteine (Acetylcysteine 20%) 4 ml IH TID [facility] Last Admin: 07/11/18 08:16 Dose: 4 ml Albuterol/Ipratropium (Duoneb 3 Mg/0.5 Mg (3 Ml) Ud) 3 ml IH TIDRESP PRN PRN Reason: Shortness of Breath Last Admin: 07/06/18 21:46 Dose: 3 ml Baclofen (Lioresal) 5 mg PO TID PRN PRN Reason: Hiccups Guaifenesin/Dextromethorphan (Robitussin Dm) 10 ml PO Q4H PRN PRN Reason: Cough Heparin Sodium (Porcine) (Heparin) 5,000 units SC Q8 [facility]; Protocol Last Admin: 07/11/18 05:47 Dose: 5,000 units Sodium Chloride (Sodium Chloride 0.9%) 1,000 mls @ 100 mls/hr IV .Q10H [facility] Last Admin: 07/11/18 09:45 Dose: 100 mls/hr Meropenem/Sodium Chloride (Merrem Iv 500 Mg/Ns 50 Ml) 500 mg in 50 mls @ 100 mls/hr IVPB Q12 [facility]; Protocol Last Admin: 07/11/18 09:43 Dose: 100 mls/hr Insulin Human Regular (Humulin R High) 0 units SC ACHS [facility]; Protocol Last Admin: 07/11/18 12:45 Dose: 10 unit Levalbuterol HCl (Xopenex) 0.63 mg IH TIDRESP [facility] Last Admin: 07/11/18 08:17 Dose: 0.63 mg Levetiracetam (Keppra) 500 mg PO BID [facility] Last Admin: 07/11/18 09:44 Dose: 500 mg Lorazepam (Ativan) 1 mg IVP Q15M [facility]; Protocol PRN Reason: Seizure activity Metoclopramide HCl (Reglan) 5 mg PO DAILY PRN PRN Reason: Constipation Pantoprazole Sodium (Protonix Susp) 40 mg PEG DAILY [facility] Last Admin: 07/11/18 09:44 Dose: 40 mg Phenytoin (Dilantin) 100 mg PO TID [facility] Last Admin: 07/11/18 09:44 Dose: 100 mg - Labs Labs: 07/11/18 07:00 07/11/18 07:00
[2018-07-11] MEDS: Saliva Substitute 44.3 ML PO PRN (17:51)
[2018-07-11] MEDS ORDERED: Saliva Substitute 44.3 ML PO SCH ×2 (18:00)
--- NOTE | 2018-07-11 18:48 | CP.PCM.PN ---
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 Subsequently in 2016 patient was found to have recurrence of throat CA. He presented most recently in 05/2018 w/ large soft tissue mass in oropharyngeal region; during this visit patient received PEG tube placement. He was to follow up with heme/onc Dr. Cleveland however reported he was unable to make appt due to poor transportation. Patient reports he currently not undergoing radiation/chemotherapy at this time. Remainder of PMHx is significant for COPD, Seizure, and arthritis. He [place] [facility] [place] w/ complaints of SOB, Hemoptysis, worsening secretions over the past month. Patient reports hemoptysis as light pink tinged mucopurlent sputum does not report overtly bloody or clotted sputum. He says his SOB feels as if he is not getting enough air through his tracheostomy. Patient reported he sees ENT Dr. Tapia for trach management. ID called for evaluation of potential HCAP. CT Chest showing bullous emphysema but no infiltrate. Cannot rule out early infiltrate. Patient still with leukocytosis. On trach collar with supplemental O2. Patient is awake, alert, and answer questions appropriately. He states that he is feeling better today. Patient states that is less SOB and breathing easier. Noted that the patient had fever up to 102.3 F overnight. Patient claims that he feels well and has improved. Repeat blood and urine cultures sent. He remains on Meropenem and IV Vancomycin. Vancomycin on hold given the last trough level was 35. Supposed to be on palliative radiation therapy but patient has been refusing therapy. Now DNR/DNI. Objective - Vital Signs/Intake and Output Vital Signs (last 24 hours): Temp Pulse Resp BP Pulse Ox 98.3 F 99 H 18 119/83 100 07/11/18 16:28 07/11/18 18:00 07/11/18 16:28 07/11/18 16:28 07/11/18 16:28 Intake and Output: 07/11/18 07/11/18 06:59 18:59 Intake Total 3595 Output Total 1300 Balance 2295 - Medications Medications: Current Medications Acetaminophen (Tylenol 650mg/20.3ml Solution Ud) 650 mg PEG Q6H PRN PRN Reason: Temperature Last Admin: 07/10/18 21:24 Dose: 650 mg Acetylcysteine (Acetylcysteine 20%) 4 ml IH TID [facility] Last Admin: 07/11/18 14:00 Dose: 4 ml Albuterol/Ipratropium (Duoneb 3 Mg/0.5 Mg (3 Ml) Ud) 3 ml IH TIDRESP PRN PRN Reason: Shortness of Breath Last Admin: 07/06/18 21:46 Dose: 3 ml Baclofen (Lioresal) 5 mg PO TID PRN PRN Reason: Hiccups Guaifenesin/Dextromethorphan (Robitussin Dm) 10 ml PO Q4H PRN PRN Reason: Cough Heparin Sodium (Porcine) (Heparin) 5,000 units SC Q8 [facility]; Protocol Last Admin: 07/11/18 14:53 Dose: 5,000 units Sodium Chloride (Sodium Chloride 0.9%) 1,000 mls @ 100 mls/hr IV .Q10H [facility] Last Admin: 07/11/18 09:45 Dose: 100 mls/hr Meropenem/Sodium Chloride (Merrem Iv 500 Mg/Ns 50 Ml) 500 mg in 50 mls @ 100 mls/hr IVPB Q12 [facility]; Protocol Last Admin: 07/11/18 09:43 Dose: 100 mls/hr Insulin Human Regular (Humulin R High) 0 units SC ACHS [facility]; Protocol Last Admin: 07/11/18 17:30 Dose: 4 unit Levalbuterol HCl (Xopenex) 0.63 mg IH TIDRESP [facility] Last Admin: 07/11/18 14:00 Dose: 0.63 mg Levetiracetam (Keppra) 500 mg PO BID [facility] Last Admin: 07/11/18 17:27 Dose: 500 mg Lorazepam (Ativan) 1 mg IVP Q15M [facility]; Protocol PRN Reason: Seizure activity Metoclopramide HCl (Reglan) 5 mg PO DAILY PRN PRN Reason: Constipation Pantoprazole Sodium (Protonix Susp) 40 mg PEG DAILY [facility] Last Admin: 07/11/18 09:44 Dose: 40 mg Phenytoin (Dilantin) 100 mg PO TID [facility] Last Admin: 07/11/18 17:27 Dose: 100 mg Saliva Substitute (Saliva Substitute) 0 ml PO QID PRN PRN Reason: Dry mouth Last Admin: 07/11/18 17:51 Dose: 1 ml - Labs Labs: 07/11/18 07:00 07/11/18 07:00 - Constitutional Appears: Non-toxic, No Acute Distress, Chronically Ill - Head Exam Head Exam: ATRAUMATIC, NORMOCEPHALIC - Eye Exam Eye Exam: EOMI, PERRL Pupil Exam: NORMAL ACCOMODATION, PERRL - ENT Exam ENT Exam: Mucous Membranes Moist, Normal External Ear Exam, TM's Normal Bilaterally - Neck Exam Neck Exam: Full ROM Additional comments: stoma in place. - Respiratory Exam Respiratory Exam: Clear to Ausculation Bilateral, NORMAL BREATHING PATTERN. absent: Rales, Rhonchi, Wheezes - Cardiovascular Exam Cardiovascular Exam: REGULAR RHYTHM, RRR, +S1, +S2 - GI/Abdominal Exam GI & Abdominal Exam: Soft, Normal Bowel Sounds. absent: Distended, Tenderness Additional comments: PEG in place. 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 Brought to [facility] for worsening SOB and hemoptysis. Found to have increased leukocytosis. CT scan showed bullous emphysema but no infiltrate. Started on IV Vancomycin and Zosyn. Obtain procalcitonin value. Cannot rule out leukocytosis secondary to oropharyngeal SCC. Continue antibiotics in meantime. Pharyngeal mass has increased in size compared to prior studies. Received 3 days of Zosyn. Clinically the patient appears better but still with leukocytosis. Would check urine cultures and urinalysis as well. Carr cultures. Leukocytosis above patient's prior baseline with mild left shift. Cannot rule out an early pneumonia. Also cannot rule out whether increased leukocytosis may be secondary to the patient's recurrent oropharyngeal SCC. Persistent leukocytosis. Remains afebrile. Persistent leukocytosis. Given 3 days of Zosyn. Still on Vancomycin IV. Monitor patient at this point. Cultures negative. No clear explanation for leukocytosis at this point. Leukocytosis increasing today. Fever of 102.3 F two nights ago. Meropenem and Vancomycin being administered. Vancomycin on hold due to Vancomycin level of 35. Random level now at 11.5 from 18.9. Currently with leukocytosis of 20. Stop Vancomycin for now. Procalcitonin of 0.18. Unclear at this time if the patient wanted to continue with radiation therapy as he was refusing today and stating he was not sure if he wanted to continue. Thank you for allowing me to participate in the care of the patient, we will follow with you.
[2018-07-12] MEDS: Sodium Chloride 0.9% 1,000 ML IV SCH ×2 (01:06→17:20)
[2018-07-12] MEDS: Saliva Substitute 44.3 ML PO PRN ×2 (05:37→13:49)
[2018-07-12 06:44] LABS: BASO # 0.01 K/mm3 (0.0-2.0); EOS # 0.1 (0.0-0.7); EOS % 0.5 % (1.5-5.0); GRAN # 21.33 (1.4-6.5); GRAN % 88.6 % (50.0-68.0); HEMOGLOBIN 8.9 g/dL (14.0-18.0); LYMPH # 1.5 (1.2-3.4); MEAN CELL VOLUME 91.1 fl (80.0-105.0); MEAN CORPUSCULAR HEMOGLOBIN 29.5 pg (25.0-35.0); MEAN CORPUSCULAR HGB CONC 32.4 g/dl (31.0-37.0); MEAN PLATELET VOLUME 11.7 fl (7.0-11.0); MONO # 1.2 (0.1-0.6); MONO % 4.9 % (1.0-6.0); RBC 3.02 10^6/uL (3.5-6.1); RED CELL DISTRIBUTION WIDTH 15.9 % (11.5-14.5); WHITE BLOOD COUNT 24.1 10^3/uL (4.5-11.0)
[2018-07-12 06:55] LABS: ALB/GLOB RATIO 0.6 (1.1-1.8); ALBUMIN 2.2 g/dL (3.0-4.8); ALT/SGPT 34 U/L (7-56); AST/SGOT 37 U/L (17-59); BLOOD UREA NITROGEN 29 mg/dL (7-21); CALCIUM 9.4 mg/dL (8.4-10.5); GFR NON-AFRICAN AMERICAN > 60
--- NOTE | 2018-07-12 07:36 | CP.PCM.PN ---
Addendum entered and electronically signed by Alexey Mahmood DO 07/12/18 15:39: Under assessment, should no longer state that Mr. Bermeo desires palliative radiation, as he refused today. Hospice meeting/evaluation is planned for Sunday. Original Note: <Alexey Mahmood - Last Filed: 07/12/18 13:56> Subjective - Date & Time of Evaluation Date of Evaluation: 07/12/18 Time of Evaluation: 07:10 - Subjective Subjective: Alexey Mahmood DO, PGY-1 Hospitalist Progress Note for Dr. Edge Patient was seen and examined at bedside this AM. He appears unchanged from yesterday. He is lethargic but responds appropriately. Objective - Vital Signs/Intake and Output Vital Signs (last 24 hours): Temp Pulse Resp BP Pulse Ox 98.8 F 86 20 129/72 97 07/12/18 00:30 07/12/18 06:00 07/12/18 00:30 07/12/18 00:30 07/12/18 00:30 Intake and Output: 07/12/18 07/12/18 06:59 18:59 Intake Total 1775 Output Total 575 Balance 1200 - Medications Medications: Current Medications Acetaminophen (Tylenol 650mg/20.3ml Solution Ud) 650 mg PEG Q6H PRN PRN Reason: Temperature Last Admin: 07/10/18 21:24 Dose: 650 mg Acetylcysteine (Acetylcysteine 20%) 4 ml IH TID [facility] Last Admin: 07/11/18 20:42 Dose: 4 ml Albuterol/Ipratropium (Duoneb 3 Mg/0.5 Mg (3 Ml) Ud) 3 ml IH TIDRESP PRN PRN Reason: Shortness of Breath Last Admin: 07/06/18 21:46 Dose: 3 ml Baclofen (Lioresal) 5 mg PO TID PRN PRN Reason: Hiccups Guaifenesin/Dextromethorphan (Robitussin Dm) 10 ml PO Q4H PRN PRN Reason: Cough Heparin Sodium (Porcine) (Heparin) 5,000 units SC Q8 [facility]; Protocol Last Admin: 07/12/18 05:35 Dose: 5,000 units Sodium Chloride (Sodium Chloride 0.9%) 1,000 mls @ 100 mls/hr IV .Q10H [facility] Last Admin: 07/12/18 01:06 Dose: 100 mls/hr Meropenem/Sodium Chloride (Merrem Iv 500 Mg/Ns 50 Ml) 500 mg in 50 mls @ 100 mls/hr IVPB Q12 [facility]; Protocol Last Admin: 07/11/18 21:24 Dose: 100 mls/hr Insulin Human Regular (Humulin R High) 0 units SC ACHS [facility]; Protocol Last Admin: 07/11/18 21:17 Dose: Not Given Levalbuterol HCl (Xopenex) 0.63 mg IH TIDRESP [facility] Last Admin: 07/11/18 20:42 Dose: 0.63 mg Levetiracetam (Keppra) 500 mg PO BID [facility] Last Admin: 07/11/18 17:27 Dose: 500 mg Lorazepam (Ativan) 1 mg IVP Q15M [facility]; Protocol PRN Reason: Seizure activity Metoclopramide HCl (Reglan) 5 mg PO DAILY PRN PRN Reason: Constipation Pantoprazole Sodium (Protonix Susp) 40 mg PEG DAILY [facility] Last Admin: 07/11/18 09:44 Dose: 40 mg Phenytoin (Dilantin) 100 mg PO TID [facility] Last Admin: 07/11/18 17:27 Dose: 100 mg Saliva Substitute (Saliva Substitute) 0 ml PO QID PRN PRN Reason: Dry mouth Last Admin: 07/12/18 05:37 Dose: 1 ml - Labs Labs: 07/12/18 06:00 07/12/18 06:00 - Constitutional Appears: Cachectic, Chronically Ill - Head Exam Head Exam: ATRAUMATIC, NORMOCEPHALIC - Eye Exam Eye Exam: EOMI, Normal appearance, PERRL - ENT Exam ENT Exam: Mucous Membranes Dry - Neck Exam Neck Exam: Full ROM Additional comments: tracheostomy in place, no surrounding erythema or drainage - Respiratory Exam Respiratory Exam: Clear to Ausculation Bilateral. absent: Accessory Muscle Use, Rales, Rhonchi, Wheezes, Respiratory Distress - Cardiovascular Exam Cardiovascular Exam: REGULAR RHYTHM, RRR, +S1, +S2. absent: Gallop, Rubs, Murmur - GI/Abdominal Exam GI & Abdominal Exam: Normal Bowel Sounds Additional comments: peg tube in place, cachectic appearing - Extremities Exam Extremities Exam: absent: Joint Swelling, Pedal Edema - Neurological Exam Neurological Exam: Alert, Oriented x3 - Psychiatric Exam Psychiatric exam: Flat Affect - Skin Skin Exam: Dry, Intact, Warm Assessment and Plan - Assessment and Plan (Free Text) Assessment: 73 yo M with PMH of oropharyngeal CA (s/p laryngectomy and tracheostomy), COPD, seizure disorder, and arthritis admitted for worsening SOB, secretions, and hemoptysis. He has been spiking fevers and looks worse. Family meeting was held yesterday to discuss that Mr. Bermeo can no longer take care of himself at home alone. His was present at the meeting and she understood. Hospice care was not discussed as Mr. Bermeo desires to continue palliative xrt. Plan: 1. Worsening Secretions/Hemoptysis Now suctioning himself and clearing secretions well Continue aggressive suctioning as needed 2. Persistent leukocytosis No fevers overnight last night UA with pyuria, small leukocyte esterase, however urine cx negative to date Per ID, abx switched to merem ID following, recs appreciated 3. Hx of oropharyngeal SCC Patient appears more lethargic on exam but is still able to talk and respond appropriately Family meeting yesterday clarified with family that he will not be able to go home alone without assistance He refused palliative radiation today F/u additional palliative care recs for plan after discharge Palliative care, Dr. Goldberg, and Dr. Alexandra following, recs appreciated 4. Hyperglycemia Improved on ISS, continue 5. Hypercalcemia Initial hypercalcemia was likely 2/2 worsening tumor burden Stable at 9.4 today Continue NS @ 100 cc/hr 6. Hypokalemia Resolved, continue to monitor 7. Hx of seizure disorder Continue keppra and dilantin GI/DVT PPX: protonix, SCD, SC heparin DNR/DNI Tube feedings w/aspiration pxns, adjustments PRN per do all operator Monitor on remote tele Case and plan reviewed and discussed with my attending Dr. Minesh Mahmood, IM Resident PGY-1 Pager: [phone] <Lucio Edge - Last Filed: 07/12/18 16:29> Objective - Vital Signs/Intake and Output Vital Signs (last 24 hours): Temp Pulse Resp BP Pulse Ox 98.9 F 78 19 123/62 99 07/12/18 16:16 07/12/18 16:16 07/12/18 16:16 07/12/18 16:16 07/12/18 16:16 Intake and Output: 07/12/18 07/12/18 06:59 18:59 Intake Total 1775 Output Total 575 Balance 1200 - Medications Medications: Current Medications Acetaminophen (Tylenol 650mg/20.3ml Solution Ud) 650 mg PEG Q6H PRN PRN Reason: Temperature Last Admin: 07/10/18 21:24 Dose: 650 mg Acetylcysteine (Acetylcysteine 20%) 4 ml IH TID [facility] Last Admin: 07/12/18 13:24 Dose: 4 ml Albuterol/Ipratropium (Duoneb 3 Mg/0.5 Mg (3 Ml) Ud) 3 ml IH TIDRESP PRN PRN Reason: Shortness of Breath Last Admin: 07/06/18 21:46 Dose: 3 ml Baclofen (Lioresal) 5 mg PO TID PRN PRN Reason: Hiccups Guaifenesin/Dextromethorphan (Robitussin Dm) 10 ml PO Q4H PRN PRN Reason: Cough Heparin Sodium (Porcine) (Heparin) 5,000 units SC Q8 [facility]; Protocol Last Admin: 07/12/18 13:46 Dose: 5,000 units Sodium Chloride (Sodium Chloride 0.9%) 1,000 mls @ 100 mls/hr IV .Q10H [facility] Last Admin: 07/12/18 01:06 Dose: 100 mls/hr Meropenem/Sodium Chloride (Merrem Iv 500 Mg/Ns 50 Ml) 500 mg in 50 mls @ 100 mls/hr IVPB Q12 [facility]; Protocol Last Admin: 07/12/18 09:56 Dose: 100 mls/hr Insulin Human Regular (Humulin R High) 0 units SC ACHS [facility]; Protocol Last Admin: 07/12/18 12:42 Dose: 2 unit Levalbuterol HCl (Xopenex) 0.63 mg IH TIDRESP [facility] Last Admin: 07/12/18 13:24 Dose: 0.63 mg Levetiracetam (Keppra) 500 mg PO BID [facility] Last Admin: 07/12/18 09:45 Dose: 500 mg Lorazepam (Ativan) 1 mg IVP Q15M [facility]; Protocol PRN Reason: Seizure activity Metoclopramide HCl (Reglan) 5 mg PO DAILY PRN PRN Reason: Constipation Pantoprazole Sodium (Protonix Susp) 40 mg PEG DAILY [facility] Last Admin: 07/12/18 09:45 Dose: 40 mg Phenytoin (Dilantin) 100 mg PO TID [facility] Last Admin: 07/12/18 13:46 Dose: 100 mg Saliva Substitute (Saliva Substitute) 0 ml PO QID PRN PRN Reason: Dry mouth Last Admin: 07/12/18 13:49 Dose: 1 ml - Labs Labs: 07/12/18 06:00 07/12/18 06:00 Attending/Attestation - Attestation I have personally seen and examined this patient.: Yes I have fully participated in the care of the patient.: Yes I have reviewed all pertinent clinical information, including history, physical exam and plan: Yes Notes (Text): 07/12/18 16:27 Attending note; Patient seen and examined with resident. Patient is refusing radiation therapy today also. Patient was seen and evaluated by palliative care nurse. Patient is alert. Not in any acute distress. No fevers today. 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 1. Shortness of breath; improved significantly. Continue aggressive trach care. 2. Leukocytosis. Urine culture is negative. Blood cultures with no growth. Patient is afebrile and nontoxic. Repeat cultures negative. We will follow up with ID closely. Currently on IV Merrem. Tracheostomy was changed 07/03/2018. Repeat chest x-rays negative for new infilt rate. 3. Emphysema. Chest CT without contrast radiologist showed bullous emphysema. Continue nebulizer treatments and chest PT. 4. History of oropharyngeal cancer. tracheostomy in place. oral care. Patient is refusing palliative radiation treatment. 5. History of seizure disorder. Continue Keppra and phenytoin. 6. GI/DVT prophylaxis. Protonix/SCDs. 7. Continue PEG feeding. 8. anemia;s/p 1 unit PRBC transfusion yesterday. Hemoglobin is 10.2. 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 Palliative care will discuss hospice care with family on Sunday. Patient is DNR/DNI.
[2018-07-12] MEDS: Acetylcysteine 20% Inhal Soln (4ml) IH SCH ×3 (08:14→20:16)
[2018-07-12] MEDS: Levalbuterol 0.63 MG/3 ML Inhal Soln UD IH SCH ×3 (08:14→20:17)
[2018-07-12] MEDS: Insulin Reg-HIGH-Coverage SC SCH ×4 (08:52→21:25)
[2018-07-12] MEDS: Phenytoin 100 mg/4 ml Oral Susp UD PO SCH ×3 (09:45→17:19)
[2018-07-12] MEDS: Pantoprazole 40 mg Susp UD PEG SCH (09:45)
[2018-07-12] MEDS: levETIRAcetam 500 mg/5ml UD cups PO SCH ×2 (09:45→17:19)
[2018-07-12] MEDS: MEROPENEM 500 MG in NS 500 MG/50 ML BAG IVPB SCH ×2 (09:56→21:36)
--- NOTE | 2018-07-12 15:27 | CP.PCM.PN ---
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 Subsequently in 2016 patient was found to have recurrence of throat CA. He presented most recently in 05/2018 w/ large soft tissue mass in oropharyngeal region; during this visit patient received PEG tube placement. He was to follow up with heme/onc Dr. Cleveland however reported he was unable to make appt due to poor transportation. Patient reports he currently not undergoing radiation/chemotherapy at this time. Remainder of PMHx is significant for COPD, Seizure, and arthritis. He presented [place] [facility] [place] w/ complaints of SOB, Hemoptysis, worsening secretions over the past month. Patient reports hemoptysis as light pink tinged mucopurlent sputum does not report overtly bloody or clotted sputum. He says his SOB feels as if he is not getting enough air through his tracheostomy. Patient reported he sees ENT Dr. Tapia for trach management. ID called for evaluation of potential HCAP. CT Chest showing bullous emphysema but no infiltrate. Cannot rule out early infiltrate. Patient still with leukocytosis. On trach collar with supplemental O2. Patient is awake, alert, and answer questions appropriately. He states that he is feeling better today. Patient states that is less SOB and breathing easier. Noted that the patient had fever up to 102.3 F overnight. Patient claims that he feels well and has improved. Repeat blood and urine cultures sent. He remains on Meropenem and IV Vancomycin. Vancomycin on hold given the last trough level was 35. Supposed to be on palliative radiation therapy but patient has been refusing therapy. Now DNR/DNI. Patient is arousable but lethargic. Objective - Vital Signs/Intake and Output Vital Signs (last 24 hours): Temp Pulse Resp BP Pulse Ox 97.9 F 77 20 126/66 96 07/12/18 06:00 07/12/18 14:00 07/12/18 06:00 07/12/18 06:00 07/12/18 06:00 Intake and Output: 07/12/18 07/12/18 06:59 18:59 Intake Total 1775 Output Total 575 Balance 1200 - Medications Medications: Current Medications Acetaminophen (Tylenol 650mg/20.3ml Solution Ud) 650 mg PEG Q6H PRN PRN Reason: Temperature Last Admin: 07/10/18 21:24 Dose: 650 mg Acetylcysteine (Acetylcysteine 20%) 4 ml IH TID [facility] Last Admin: 07/12/18 13:24 Dose: 4 ml Albuterol/Ipratropium (Duoneb 3 Mg/0.5 Mg (3 Ml) Ud) 3 ml IH TIDRESP PRN PRN Reason: Shortness of Breath Last Admin: 07/06/18 21:46 Dose: 3 ml Baclofen (Lioresal) 5 mg PO TID PRN PRN Reason: Hiccups Guaifenesin/Dextromethorphan (Robitussin Dm) 10 ml PO Q4H PRN PRN Reason: Cough Heparin Sodium (Porcine) (Heparin) 5,000 units SC Q8 [facility]; Protocol Last Admin: 07/12/18 13:46 Dose: 5,000 units Sodium Chloride (Sodium Chloride 0.9%) 1,000 mls @ 100 mls/hr IV .Q10H [facility] Last Admin: 07/12/18 01:06 Dose: 100 mls/hr Meropenem/Sodium Chloride (Merrem Iv 500 Mg/Ns 50 Ml) 500 mg in 50 mls @ 100 mls/hr IVPB Q12 [facility]; Protocol Last Admin: 07/12/18 09:56 Dose: 100 mls/hr Insulin Human Regular (Humulin R High) 0 units SC ACHS [facility]; Protocol Last Admin: 07/12/18 12:42 Dose: 2 unit Levalbuterol HCl (Xopenex) 0.63 mg IH TIDRESP [facility] Last Admin: 07/12/18 13:24 Dose: 0.63 mg Levetiracetam (Keppra) 500 mg PO BID [facility] Last Admin: 07/12/18 09:45 Dose: 500 mg Lorazepam (Ativan) 1 mg IVP Q15M [facility]; Protocol PRN Reason: Seizure activity Metoclopramide HCl (Reglan) 5 mg PO DAILY PRN PRN Reason: Constipation Pantoprazole Sodium (Protonix Susp) 40 mg PEG DAILY [facility] Last Admin: 07/12/18 09:45 Dose: 40 mg Phenytoin (Dilantin) 100 mg PO TID [facility] Last Admin: 07/12/18 13:46 Dose: 100 mg Saliva Substitute (Saliva Substitute) 0 ml PO QID PRN PRN Reason: Dry mouth Last Admin: 07/12/18 13:49 Dose: 1 ml - Labs Labs: 07/12/18 06:00 07/12/18 06:00 - Constitutional Appears: Non-toxic, No Acute Distress, Chronically Ill - Head Exam Head Exam: ATRAUMATIC, NORMOCEPHALIC - Eye Exam Eye Exam: EOMI, PERRL Pupil Exam: NORMAL ACCOMODATION, PERRL - ENT Exam ENT Exam: Mucous Membranes Moist, Normal External Ear Exam, TM's Normal Bilaterally - Neck Exam Neck Exam: Full ROM Additional comments: stoma in place. - Respiratory Exam Respiratory Exam: Clear to Ausculation Bilateral, NORMAL BREATHING PATTERN. absent: Rales, Rhonchi, Wheezes - Cardiovascular Exam Cardiovascular Exam: REGULAR RHYTHM, RRR, +S1, +S2 - GI/Abdominal Exam GI & Abdominal Exam: Soft, Normal Bowel Sounds. absent: Distended, Tenderness Additional comments: PEG in place. 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 Brought [place] [facility] [place] for worsening SOB and hemoptysis. Found to have increased leukocytosis. CT scan showed bullous emphysema but no infiltrate. Started on IV Vancomycin and Zosyn. Obtain procalcitonin value. Cannot rule out leukocytosis secondary to oropharyngeal SCC. Continue antibiotics in meantime. Pharyngeal mass has increased in size compared to prior studies. Received 3 days of Zosyn. Clinically the patient appears better but still with leukocytosis. Would check urine cultures and urinalysis as well. Carr cultures. Leukocytosis above patient's prior baseline with mild left shift. Cannot rule out an early pneumonia. Also cannot rule out whether increased leukocytosis may be secondary to the patient's recurrent oropharyngeal SCC. Persistent leukocytosis. Remains afebrile. Persistent leukocytosis. Given 3 days of Zosyn. Still on Vancomycin IV. Monitor patient at this point. Cultures negative. No clear explanation for leukocytosis at this point. Le ukocytosis increasing today. Fever of 102.3 F two nights ago. Meropenem and Vancomycin being administered. Stopped Vancomycin for now. Procalcitonin of 0.18. Unclear at this time if the patient wanted to continue with radiation therapy as he was refusing yesterday and stating he was not sure if he wanted to continue. He is DNI/DNR now. Leukocytosis increased slightly to 25.5 yesterday and 24.1 now. On Meropenem alone for antibiotic therapy. No positive cultures. Thank you for allowing me to participate in the care of the patient, we will follow with you.
--- NOTE | 2018-07-12 17:19 | CP.PCM.PN ---
Subjective - Date & Time of Evaluation Date of Evaluation: 07/12/18 Time of Evaluation: 17:17 - Subjective Subjective: patient seen and examined resting in bed. Events noted. Pt denies pain or bleeding Objective - Vital Signs/Intake and Output Vital Signs (last 24 hours): Temp Pulse Resp BP Pulse Ox 98.9 F 78 19 123/62 99 07/12/18 16:16 07/12/18 16:16 07/12/18 16:16 07/12/18 16:16 07/12/18 16:16 Intake and Output: 07/12/18 07/12/18 06:59 18:59 Intake Total 1775 Output Total 575 Balance 1200 - Medications Medications: Current Medications Acetaminophen (Tylenol 650mg/20.3ml Solution Ud) 650 mg PEG Q6H PRN PRN Reason: Temperature Last Admin: 07/10/18 21:24 Dose: 650 mg Acetylcysteine (Acetylcysteine 20%) 4 ml IH TID [facility] Last Admin: 07/12/18 13:24 Dose: 4 ml Albuterol/Ipratropium (Duoneb 3 Mg/0.5 Mg (3 Ml) Ud) 3 ml IH TIDRESP PRN PRN Reason: Shortness of Breath Last Admin: 07/06/18 21:46 Dose: 3 ml Baclofen (Lioresal) 5 mg PO TID PRN PRN Reason: Hiccups Guaifenesin/Dextromethorphan (Robitussin Dm) 10 ml PO Q4H PRN PRN Reason: Cough Heparin Sodium (Porcine) (Heparin) 5,000 units SC Q8 [facility]; Protocol Last Admin: 07/12/18 13:46 Dose: 5,000 units Sodium Chloride (Sodium Chloride 0.9%) 1,000 mls @ 100 mls/hr IV .Q10H [facility] Last Admin: 07/12/18 01:06 Dose: 100 mls/hr Meropenem/Sodium Chloride (Merrem Iv 500 Mg/Ns 50 Ml) 500 mg in 50 mls @ 100 mls/hr IVPB Q12 [facility]; Protocol Last Admin: 07/12/18 09:56 Dose: 100 mls/hr Insulin Human Regular (Humulin R High) 0 units SC ACHS [facility]; Protocol Last Admin: 07/12/18 12:42 Dose: 2 unit Levalbuterol HCl (Xopenex) 0.63 mg IH TIDRESP [facility] Last Admin: 07/12/18 13:24 Dose: 0.63 mg Levetiracetam (Keppra) 500 mg PO BID [facility] Last Admin: 07/12/18 09:45 Dose: 500 mg Lorazepam (Ativan) 1 mg IVP Q15M PRN; Protocol PRN Reason: Seizure activity Metoclopramide HCl (Reglan) 5 mg PO DAILY PRN PRN Reason: Constipation Pantoprazole Sodium (Protonix Susp) 40 mg PEG DAILY [facility] Last Admin: 07/12/18 09:45 Dose: 40 mg Phenytoin (Dilantin) 100 mg PO TID [facility] Last Admin: 07/12/18 13:46 Dose: 100 mg Saliva Substitute (Saliva Substitute) 0 ml PO QID PRN PRN Reason: Dry mouth Last Admin: 07/12/18 13:49 Dose: 1 ml - Labs Labs: 07/12/18 06:00 07/12/18 06:00 - Head Exam Head Exam: NORMAL INSPECTION - Eye Exam Eye Exam: Normal appearance - ENT Exam ENT Exam: Mucous Membranes Moist, Normal Exam Additional comments: tongue enlarged secondary to radiation - Neck Exam Additional comments: tracheotomy in place Assessment and Plan (1) Hemoptysis Status: Acute (2) Laryngeal cancer Status: Acute (3) Oropharyngeal mass Status: Acute (4) Aphonia Status: Acute (5) Anemia Status: Chronic (6) Dysphagia Status: Chronic (7) Seizures Status: Chronic (8) Dyspnea and respiratory abnormalities Status: Acute - Assessment and Plan (Free Text) Plan: continue conservative management, maintain tracheotomy tube
--- NOTE | 2018-07-12 18:28 | CP.PCM.PN ---
Subjective - Date & Time of Evaluation Date of Evaluation: 07/12/18 Time of Evaluation: 18:28 - Subjective Subjective: Hematology/Oncology Progress Note (Dr. Alexandra's Service) Patient seen and assessed at bedside. No acute events noted overnight. Patient noted to have refused radiation treatment yesterday and today. Patient reports that he was just too tired. Patient denies any further complaints at this time including fevers, chills, headache, chest pain, SOB, abdominal pain, N/V/D/C, changes in urine output, skin changes or any numbness/tingling of any extremity. Objective - Vital Signs/Intake and Output Vital Signs (last 24 hours): Temp Pulse Resp BP Pulse Ox 98.9 F 78 19 123/62 99 07/12/18 16:16 07/12/18 16:16 07/12/18 16:16 07/12/18 16:16 07/12/18 16:16 Intake and Output: 07/12/18 07/12/18 06:59 18:59 Intake Total 1775 Output Total 575 Balance 1200 - Medications Medications: Current Medications Acetaminophen (Tylenol 650mg/20.3ml Solution Ud) 650 mg PEG Q6H PRN PRN Reason: Temperature Last Admin: 07/10/18 21:24 Dose: 650 mg Acetylcysteine (Acetylcysteine 20%) 4 ml IH TID [facility] Last Admin: 07/12/18 13:24 Dose: 4 ml Albuterol/Ipratropium (Duoneb 3 Mg/0.5 Mg (3 Ml) Ud) 3 ml IH TIDRESP PRN PRN Reason: Shortness of Breath Last Admin: 07/06/18 21:46 Dose: 3 ml Baclofen (Lioresal) 5 mg PO TID PRN PRN Reason: Hiccups Guaifenesin/Dextromethorphan (Robitussin Dm) 10 ml PO Q4H PRN PRN Reason: Cough Heparin Sodium (Porcine) (Heparin) 5,000 units SC Q8 [facility]; Protocol Last Admin: 07/12/18 13:46 Dose: 5,000 units Sodium Chloride (Sodium Chloride 0.9%) 1,000 mls @ 100 mls/hr IV .Q10H [facility] Last Admin: 07/12/18 17:20 Dose: 100 mls/hr Meropenem/Sodium Chloride (Merrem Iv 500 Mg/Ns 50 Ml) 500 mg in 50 mls @ 100 mls/hr IVPB Q12 [facility]; Protocol Last Admin: 07/12/18 09:56 Dose: 100 mls/hr Insulin Human Regular (Humulin R High) 0 units SC ACHS [facility]; Protocol Last Admin: 07/12/18 17:18 Dose: 2 unit Levalbuterol HCl (Xopenex) 0.63 mg IH TIDRESP [facility] Last Admin: 07/12/18 13:24 Dose: 0.63 mg Levetiracetam (Keppra) 500 mg PO BID [facility] Last Admin: 07/12/18 17:19 Dose: 500 mg Lorazepam (Ativan) 1 mg IVP Q15M PRN; Protocol PRN Reason: Seizure activity Metoclopramide HCl (Reglan) 5 mg PO DAILY PRN PRN Reason: Constipation Pantoprazole Sodium (Protonix Susp) 40 mg PEG DAILY [facility] Last Admin: 07/12/18 09:45 Dose: 40 mg Phenytoin (Dilantin) 100 mg PO TID [facility] Last Admin: 07/12/18 17:19 Dose: 100 mg Saliva Substitute (Saliva Substitute) 0 ml PO QID PRN PRN Reason: Dry mouth Last Admin: 07/12/18 13:49 Dose: 1 ml - Labs Labs: 07/12/18 06:00 07/12/18 06:00 - Additional Findings Additional findings: - Constitutional Appears: No Acute Distress, Cachectic - Head Exam Head Exam: ATRAUMATIC, NORMOCEPHALIC - Eye Exam Eye Exam: EOMI - ENT Exam ENT Exam: Mucous Membranes Dry Additional comments: Tongue noted to have ulcerations - Neck Exam Neck Exam: Full ROM. absent: Lymphadenopathy Additional comments: Trach/stoma in place with collar; No visible secretions noted; No signs of clinical infection of surrounding soft tissues - Respiratory Exam Respiratory Exam: NORMAL BREATHING PATTERN. absent: Decreased Breath Sounds, Accessory Muscle Use, Chest Wall Tenderness, Prolonged Expiratory Phase, Rales, Rhonchi, Wheezes, Respiratory Distress - Cardiovascular Exam Cardiovascular Exam: RRR, +S1, +S2 - GI/Abdominal Exam GI & Abdominal Exam: Soft, Normal Bowel Sounds. 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 Of note, CT soft tissue of neck showed progression of previously recorded laryngeal tumor from 2.5x3.1x6.4cm to now 5.0x6.8x10.3cm. PET/CT revi ewed and showed metastatic adenopathy. Patient was also found to bullous emphysema with questionable right sided mucus plug. Radiation Oncology was consulted and patient is undergoing palliative RT. Patient was made DNR/DNI via POLST during this admission. Plan: -PET/CT reviewed and showed metastatic adenopathy -CT soft tissue H/N showed progression of tumor with measurements as stated above -Radiation Oncology consulted, all recommendations appreciated; Continue palliative RT as tolerated (Completed anticipated treatments) -Pulmonology consulted, all recommendations appreciated; Continue Xopenex, Mucormyst, Duonebs and supplemental O2 as needed -Palliative consultation noted, all recommendations appreciated; Patient made DNR/DNI via POLST -ID consulted, all recommendations appreciated; Currently on Merrem -ENT consulted, all recommendations appreciated; Continue with trach care and management as ordered -Continue tube feeds as ordered; 7 cans of Jevity 1.2 per day -Continue intermittent self suctioning -Continue chest PT -H/H currently stable at 8.9/27.5 -Further recommendations as per Dr. Alexandra Patient seen and case discussed with attending, Dr. Ibrahima Hatfield PGY2
[2018-07-13] MEDS: Saliva Substitute 44.3 ML PO PRN (05:32)
[2018-07-13 07:18] LABS: BASO # 0.01 K/mm3 (0.0-2.0); EOS # 0.1 (0.0-0.7); EOS % 0.7 % (1.5-5.0); GRAN # 18.02 (1.4-6.5); HEMOGLOBIN 8.7 g/dL (14.0-18.0); LYMPH # 1.3 (1.2-3.4); LYMPH % 6.5 % (22.0-35.0); MEAN CELL VOLUME 90.9 fl (80.0-105.0); MEAN CORPUSCULAR HEMOGLOBIN 29.3 pg (25.0-35.0); MEAN CORPUSCULAR HGB CONC 32.2 g/dl (31.0-37.0); MEAN PLATELET VOLUME 11.3 fl (7.0-11.0); MONO % 4.8 % (1.0-6.0); RBC 2.97 10^6/uL (3.5-6.1); RED CELL DISTRIBUTION WIDTH 16.2 % (11.5-14.5); WHITE BLOOD COUNT 20.5 10^3/uL (4.5-11.0)
[2018-07-13 07:20] LABS: ALB/GLOB RATIO 0.6 (1.1-1.8); ALBUMIN 2.1 g/dL (3.0-4.8); ALT/SGPT 35 U/L (7-56); AST/SGOT 54 U/L (17-59); BLOOD UREA NITROGEN 29 mg/dL (7-21); CALCIUM 9.8 mg/dL (8.4-10.5); GFR NON-AFRICAN AMERICAN > 60
[2018-07-13] MEDS: Insulin Reg-HIGH-Coverage SC SCH ×4 (07:52→21:20)
[2018-07-13] MEDS: Levalbuterol 0.63 MG/3 ML Inhal Soln UD IH SCH ×3 (09:06→20:01)
[2018-07-13] MEDS: Acetylcysteine 20% Inhal Soln (4ml) IH SCH ×3 (09:06→20:00)
[2018-07-13] MEDS: Pantoprazole 40 mg Susp UD PEG SCH (10:52)
[2018-07-13] MEDS: levETIRAcetam 500 mg/5ml UD cups PO SCH ×2 (10:52→17:09)
[2018-07-13] MEDS: Phenytoin 100 mg/4 ml Oral Susp UD PO SCH ×3 (10:52→17:09)
[2018-07-13] MEDS: MEROPENEM 500 MG in NS 500 MG/50 ML BAG IVPB SCH ×2 (10:56→21:23)
--- NOTE | 2018-07-13 14:26 | US ---
PROCEDURE: Left lower extremity venous US HISTORY: Leg pain and swelling. Evaluate for DVT. PHYSICIAN(S): David Hawk MD. TECHNIQUE: Duplex sonography and color-flow Doppler with graded compression were used to evaluate the deep venous system of the left lower extremity. FINDINGS: The visualized deep venous system of the left lower extremity is sonographically normal and compressible. Normal wave forms and augmentation are seen. There is no sonographic evidence for deep venous thrombosis in the visualized segments of the left lower extremity. IMPRESSION: 1. No sonographic evidence for deep venous thrombosis in the visualized segments of the left lower extremity.
--- NOTE | 2018-07-13 14:28 | CP.PCM.PN ---
<Natalie Alvarez - Last Filed: 07/13/18 14:22> Subjective - Date & Time of Evaluation Date of Evaluation: 07/13/18 Time of Evaluation: 14:22 - Subjective Subjective: Natalie Alvarez DO PGY-[address] Edge Pt was seen and examined at bedside this AM. He is awake, alert and oriented. He answers questions appropriately and is aware of his condition. He is currently denying any acute complaints and is unchanged from yesterday. Objective - Vital Signs/Intake and Output Vital Signs (last 24 hours): Temp Pulse Resp BP Pulse Ox 98.2 F 82 20 121/62 98 07/13/18 08:08 07/13/18 08:08 07/13/18 08:08 07/13/18 08:08 07/13/18 08:08 Intake and Output: 07/13/18 07/13/18 06:59 18:59 Intake Total 1200 Balance 1200 - Medications Medications: Current Medications Acetaminophen (Tylenol 650mg/20.3ml Solution Ud) 650 mg PEG Q6H PRN PRN Reason: Temperature Last Admin: 07/10/18 21:24 Dose: 650 mg Acetylcysteine (Acetylcysteine 20%) 4 ml IH TID [facility] Last Admin: 07/13/18 13:54 Dose: 4 ml Albuterol/Ipratropium (Duoneb 3 Mg/0.5 Mg (3 Ml) Ud) 3 ml IH TIDRESP PRN PRN Reason: Shortness of Breath Last Admin: 07/06/18 21:46 Dose: 3 ml Baclofen (Lioresal) 5 mg PO TID PRN PRN Reason: Hiccups Guaifenesin/Dextromethorphan (Robitussin Dm) 10 ml PO Q4H PRN PRN Reason: Cough Heparin Sodium (Porcine) (Heparin) 5,000 units SC Q8 [facility]; Protocol Last Admin: 07/13/18 05:33 Dose: 5,000 units Sodium Chloride (Sodium Chloride 0.9%) 1,000 mls @ 100 mls/hr IV .Q10H [facility] Last Admin: 07/12/18 17:20 Dose: 100 mls/hr Meropenem/Sodium Chloride (Merrem Iv 500 Mg/Ns 50 Ml) 500 mg in 50 mls @ 100 mls/hr IVPB Q12 [facility]; Protocol Last Admin: 07/13/18 10:56 Dose: 100 mls/hr Insulin Human Regular (Humulin R High) 0 units SC ACHS [facility]; Protocol Last Admin: 07/13/18 07:52 Dose: 4 unit Levalbuterol HCl (Xopenex) 0.63 mg IH TIDRESP [facility] Last Admin: 07/13/18 13:54 Dose: 0.63 mg Levetiracetam (Keppra) 500 mg PO BID [facility] Last Admin: 07/13/18 10:52 Dose: 500 mg Lorazepam (Ativan) 1 mg IVP Q15M PRN; Protocol PRN Reason: Seizure activity Metoclopramide HCl (Reglan) 5 mg PO DAILY PRN PRN Reason: Constipation Pantoprazole Sodium (Protonix Susp) 40 mg PEG DAILY [facility] Last Admin: 07/13/18 10:52 Dose: 40 mg Phenytoin (Dilantin) 100 mg PO TID [facility] Last Admin: 07/13/18 10:52 Dose: 100 mg Saliva Substitute (Saliva Substitute) 0 ml PO QID PRN PRN Reason: Dry mouth Last Admin: 07/13/18 05:32 Dose: 1 ml - Labs Labs: 07/13/18 05:15 07/13/18 05:15 - Constitutional Appears: Cachectic, Chronically Ill - Head Exam Head Exam: ATRAUMATIC, NORMAL INSPECTION, NORMOCEPHALIC - Eye Exam Eye Exam: EOMI, Normal appearance, PERRL - ENT Exam ENT Exam: Mucous Membranes Dry - Neck Exam Additional comments: Pt has tracheostomy in place that is showing no surrounding erythema, or drainage. - Respiratory Exam Respiratory Exam: Decreased Breath Sounds, NORMAL BREATHING PATTERN. absent: Rhonchi, Wheezes, Respiratory Distress, Stridor - Cardiovascular Exam Cardiovascular Exam: RRR, +S1, +S2. absent: Gallop, Rubs - GI/Abdominal Exam GI & Abdominal Exam: Soft, Normal Bowel Sounds. absent: Tenderness Additional comments: Peg tube in place with no surrounding erythema or drainage. - Extremities Exam Extremities Exam: Full ROM, Normal Capillary Refill. absent: Calf Tenderness - Neurological Exam Neurological Exam: Alert, Awake, Oriented x3 - Psychiatric Exam Psychiatric exam: Normal Affect, Normal Mood - Skin Skin Exam: Dry, Intact, Normal Color, Warm Assessment and Plan - Assessment and Plan (Free Text) Assessment: 73 yo M with PMH of oropharyngeal CA (s/p laryngectomy and tracheostomy), COPD, seizure disorder, and arthritis admitted for worsening SOB, secretions, and hemoptysis. He has been spiking fevers and looks worse. Family meeting was held yesterday to discuss that Mr. Bermeo can no longer take care of himself at home alone. His was present at the meeting and she understood. Will discuss case with hospice on Sunday. Plan: 1. Worsening Secretions/Hemoptysis - Now suctioning himself and clearing secretions well - Continue aggressive suctioning as needed 2. Persistent leukocytosis: - Now downtrending - No fevers overnight last night - UA with pyuria, small leukocyte esterase, however urine cx negative to date - Per ID, abx switched to merem - ID following, recs appreciated 3. Hx of oropharyngeal SCC - Patient appears lethargic on exam but is still able to talk and respond appropriately - Family meeting yesterday clarified with family that he will not be able to go home alone without assistance - He refused palliative radiation today - F/u additional palliative care recs for plan after discharge - Palliative care, Dr. Goldberg, and Dr. Alexandra following, recs appreciated 4. Hyperglycemia - Improved on ISS, continue 5. Hypercalcemia - Initial hypercalcemia was likely 2/2 worsening tumor burden - Rising to 9.8 today - Continue NS @ 100 cc/hr 6. Hypokalemia - Resolved, continue to monitor 7. Hx of seizure disorder - Continue keppra and dilantin 8. PPX: GI/DVT : protonix, SCD, SC heparin DNR/DNI Tube feedings w/aspiration pxns, adjustments PRN per starter mechanic Case and plan reviewed and discussed with my attending Dr. Edge <Lucio Edge - Last Filed: 07/13/18 15:44> Objective - Vital Signs/Intake and Output Vital Signs (last 24 hours): Temp Pulse Resp BP Pulse Ox 98.2 F 82 20 121/62 98 07/13/18 08:08 07/13/18 08:08 07/13/18 08:08 07/13/18 08:08 07/13/18 08:08 Intake and Output: 07/13/18 07/13/18 06:59 18:59 Intake Total 1200 Balance 1200 - Medications Medications: Current Medications Acetaminophen (Tylenol 650mg/20.3ml Solution Ud) 650 mg PEG Q6H PRN PRN Reason: Temperature Last Admin: 07/10/18 21:24 Dose: 650 mg Acetylcysteine (Acetylcysteine 20%) 4 ml IH TID [facility] Last Admin: 07/13/18 13:54 Dose: 4 ml Albuterol/Ipratropium (Duoneb 3 Mg/0.5 Mg (3 Ml) Ud) 3 ml IH TIDRESP PRN PRN Reason: Shortness of Breath Last Admin: 07/06/18 21:46 Dose: 3 ml Baclofen (Lioresal) 5 mg PO TID PRN PRN Reason: Hiccups Guaifenesin/Dextromethorphan (Robitussin Dm) 10 ml PO Q4H PRN PRN Reason: Cough Heparin Sodium (Porcine) (Heparin) 5,000 units SC Q8 [facility]; Protocol Last Admin: 07/13/18 14:36 Dose: 5,000 units Sodium Chloride (Sodium Chloride 0.9%) 1,000 mls @ 100 mls/hr IV .Q10H [facility] Last Admin: 07/12/18 17:20 Dose: 100 mls/hr Meropenem/Sodium Chloride (Merrem Iv 500 Mg/Ns 50 Ml) 500 mg in 50 mls @ 100 mls/hr IVPB Q12 [facility]; Protocol Last Admin: 07/13/18 10:56 Dose: 100 mls/hr Insulin Human Regular (Humulin R High) 0 units SC ACHS [facility]; Protocol Last Admin: 07/13/18 11:40 Dose: Not Given Levalbuterol HCl (Xopenex) 0.63 mg IH TIDRESP [facility] Last Admin: 07/13/18 13:54 Dose: 0.63 mg Levetiracetam (Keppra) 500 mg PO BID [facility] Last Admin: 07/13/18 10:52 Dose: 500 mg Lorazepam (Ativan) 1 mg IVP Q15M PRN; Protocol PRN Reason: Seizure activity Metoclopramide HCl (Reglan) 5 mg PO DAILY PRN PRN Reason: Constipation Pantoprazole Sodium (Protonix Susp) 40 mg PEG DAILY [facility] Last Admin: 07/13/18 10:52 Dose: 40 mg Phenytoin (Dilantin) 100 mg PO TID [facility] Last Admin: 07/13/18 14:36 Dose: 100 mg Saliva Substitute (Saliva Substitute) 0 ml PO QID PRN PRN Reason: Dry mouth Last Admin: 07/13/18 05:32 Dose: 1 ml - Labs Labs: 07/13/18 05:15 07/13/18 05:15 Attending/Attestation - Attestation I have personally seen and examined this patient.: Yes I have fully participated in the care of the patient.: Yes I have reviewed all pertinent clinical information, including history, physical exam and plan: Yes Notes (Text): 07/13/18 15:40 Attending note; Patient seen and examined with resident. Patient is alert and awake. Mucositis is resolving. Continue oral care. Denies any fevers and chills. Patient was seen and evaluated by palliative care nurse. Not in any acute distress. No fevers today. 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 1. Shortness of breath; improved significantly. Continue aggressive suctioning .Continue trach care. Secretions improved significantly. 2. Leukocytosis. Improving . Patient is afebrile and nontoxic . Urine culture is negative. Blood cultures with no growth. Repeat cultures negative.. Currently on IV Merrem. Tracheostomy was changed 07/03/2018. Repeat chest x-rays negative for new infiltrate. 3. Emphysema. Chest CT without contrast radiologist showed bullous emphysema. Continue nebulizer treatments and chest PT. 4. History of oropharyngeal cancer. tracheostomy in place. oral care. Patient is refusing palliative radiation treatment. ENT follow up appr eciated. 5. History of seizure disorder. Continue Keppra and phenytoin. 6. GI/DVT prophylaxis. Protonix/SCDs. 7. Continue PEG feeding. 8. anemia; Hemoglobin is 10.2. drum worker evaluation appreciated. Patient's daughter contacted the process medically paperwork. Patient's sister informed about patient's current condition. Patient's by the bedside most of the time. She cannot care For him anymore at home due to multiple medical issues. Prognosis poor. Patient is DNR/DNI.
--- NOTE | 2018-07-13 19:12 | CP.PCM.PN ---
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 Subsequently in 2016 patient was found to have recurrence of throat CA. He presented most recently in 05/2018 w/ large soft tissue mass in oropharyngeal region; during this visit patient received PEG tube placement. He was to follow up with heme/onc Dr. Cleveland however reported he was unable to make appt due to poor transportation. Patient reports he currently not undergoing radiation/chemotherapy at this time. Remainder of PMHx is significant for COPD, Seizure, and arthritis. He presented to [facility] ED 07/02 w/ complaints of SOB, Hemoptysis, worsening secretions over the past month. Patient reports hemoptysis as light pink tinged mucopurlent sputum does not report overtly bloody or clotted sputum. He says his SOB feels as if he is not getting enough air through his tracheostomy. Patient reported he sees ENT Dr. Tapia for trach management. ID called for evaluation of potential HCAP. CT Chest showing bullous emphysema but no infiltrate. Cannot rule out early infiltrate. Patient still with leukocytosis. On trach collar with supplemental O2. Patient is awake, alert, and answer questions appropriately. He states that he is feeling better today. Patient states that is less SOB and breathing easier. Noted that the patient had fever up to 102.3 F overnight. Patient claims that he feels well and has improved. Repeat blood and urine cultures sent. He remains on Meropenem and IV Vancomycin. Vancomycin on hold given the last trough level was 35. Currently remains on Meropenem alone. Supposed to be on palliative radiation therapy but patient has been refusing therapy. Now DNR/DNI. Patient is arousable but lethargic and fatigued. Objective - Vital Signs/Intake and Output Vital Signs (last 24 hours): Temp Pulse Resp BP Pulse Ox 97.9 F 89 19 115/61 94 L 07/13/18 16:39 07/13/18 16:39 07/13/18 16:39 07/13/18 16:39 07/13/18 16:39 Intake and Output: 11/03/18 11/04/18 18:59 05:59 Intake Total 1250 Balance 1250 - Medications Medications: Current Medications Acetaminophen (Tylenol 650mg/20.3ml Solution Ud) 650 mg PEG Q6H PRN PRN Reason: Temperature Last Admin: 07/10/18 21:24 Dose: 650 mg Acetylcysteine (Acetylcysteine 20%) 4 ml IH TID [facility] Last Admin: 07/13/18 13:54 Dose: 4 ml Albuterol/Ipratropium (Duoneb 3 Mg/0.5 Mg (3 Ml) Ud) 3 ml IH TIDRESP PRN PRN Reason: Shortness of Breath Last Admin: 07/06/18 21:46 Dose: 3 ml Baclofen (Lioresal) 5 mg PO TID PRN PRN Reason: Hiccups Guaifenesin/Dextromethorphan (Robitussin Dm) 10 ml PO Q4H PRN PRN Reason: Cough Heparin Sodium (Porcine) (Heparin) 5,000 units SC Q8 [facility]; Protocol Last Admin: 07/13/18 14:36 Dose: 5,000 units Sodium Chloride (Sodium Chloride 0.9%) 1,000 mls @ 100 mls/hr IV .Q10H [facility] Last Admin: 07/12/18 17:20 Dose: 100 mls/hr Meropenem/Sodium Chloride (Merrem Iv 500 Mg/Ns 50 Ml) 500 mg in 50 mls @ 100 mls/hr IVPB Q12 [facility]; Protocol Last Admin: 07/13/18 10:56 Dose: 100 mls/hr Insulin Human Regular (Humulin R High) 0 units SC ACHS [facility]; Protocol Last Admin: 07/13/18 17:10 Dose: Not Given Levalbuterol HCl (Xopenex) 0.63 mg IH TIDRESP [facility] Last Admin: 07/13/18 13:54 Dose: 0.63 mg Levetiracetam (Keppra) 500 mg PO BID [facility] Last Admin: 07/13/18 17:09 Dose: 500 mg Lorazepam (Ativan) 1 mg IVP Q15M PRN; Protocol PRN Reason: Seizure activity Metoclopramide HCl (Reglan) 5 mg PO DAILY PRN PRN Reason: Constipation Pantoprazole Sodium (Protonix Susp) 40 mg PEG DAILY [facility] Last Admin: 07/13/18 10:52 Dose: 40 mg Phenytoin (Dilantin) 100 mg PO TID [facility] Last Admin: 07/13/18 17:09 Dose: 100 mg Saliva Substitute (Saliva Substitute) 0 ml PO QID PRN PRN Reason: Dry mouth Last Admin: 07/13/18 05:32 Dose: 1 ml - Labs Labs: 07/13/18 05:15 07/13/18 05:15 - Constitutional Appears: Non-toxic, No Acute Distress, Cachectic, Chronically Ill - Head Exam Head Exam: ATRAUMATIC, NORMOCEPHALIC - Eye Exam Eye Exam: EOMI, PERRL Pupil Exam: NORMAL ACCOMODATION, PERRL - ENT Exam ENT Exam: Mucous Membranes Moist, Normal External Ear Exam, TM's Normal Bilaterally - Neck Exam Neck Exam: Full ROM, Normal Inspection - Respiratory Exam Respiratory Exam: Clear to Ausculation Bilateral, NORMAL BREATHING PATTERN. absent: Rales, Rhonchi, Wheezes - Cardiovascular Exam Cardiovascular Exam: REGULAR RHYTHM, RRR, +S1, +S2 - GI/Abdominal Exam GI & Abdominal Exam: Soft, Normal Bowel Sounds. absent: Distended, Tenderness Additional comments: PEG in place. 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 Brought to [facility] for worsening SOB and hemoptysis. Found to have increased leukocytosis. CT scan showed bullous emphysema but no infiltrate. Started on IV Vancomycin and Zosyn. Obtain procalcitonin value. Cannot rule out leukocytosis secondary to oropharyngeal SCC. Continue antibiotics in meantime. Pharyngeal mass has increased in size compared to prior studies. Received 3 days of Zosyn. Clinically the patient appears better but still with leukocytosis. Would check urine cultures and urinalysis as well. Carr cultures. Leukocytosis above patient's prior baseline with mild left shift. Cannot rule out an early pneumonia. Also cannot rule out whether increased leukocytosis may be secondary to the patient's recurrent oropharyngeal SCC. Persistent leukocytosis. Remains afebrile. Persistent leukocytosis. Given 3 days of Zosyn. Still on Vancomycin IV. Monitor patient at this point. Cultures negative. No clear explanation for leukocytosis at this point. Leukocytosis increasing today. Fever of 102.3 F two nights ago. Meropenem and Vancomycin being administered. Stopped Vancomycin for now. Procalcitonin of 0.18. Unclear at this time if the patient wanted to continue with radiation therapy as he was refusing yesterday and stating he was not sure if he wanted to continue. He is DNI/DNR now. Leukocytosis decreased slightly to 20.5 now. On Meropenem alone for antibiotic therapy. No positive cultures. Very poor overall prognosis. Thank you for allowing me to participate in the care of the patient, we will follow with you.
[2018-07-13] MEDS ORDERED: DiphenhydrAMINE 50 mg/ml Inj IVP PRN (22:34)
[2018-07-14] MEDS: Albuterol-Ipratrop 3 mg / 0.5 (3 ml) UD IH PRN (01:56)
[2018-07-14 02:52] LABS: HEMOGLOBIN 8.7 g/dL (14.0-18.0)
[2018-07-14 07:32] LABS: BASO # 0.01 K/mm3 (0.0-2.0); EOS # 0.1 (0.0-0.7); EOS % 0.5 % (1.5-5.0); GRAN # 18.23 (1.4-6.5); GRAN % 86.1 % (50.0-68.0); HEMOGLOBIN 8.7 g/dL (14.0-18.0); LYMPH # 1.5 (1.2-3.4); LYMPH % 6.8 % (22.0-35.0); MEAN CELL VOLUME 90.5 fl (80.0-105.0); MEAN CORPUSCULAR HEMOGLOBIN 29.4 pg (25.0-35.0); MEAN CORPUSCULAR HGB CONC 32.5 g/dl (31.0-37.0); MEAN PLATELET VOLUME 11.5 fl (7.0-11.0); MONO # 1.4 (0.1-0.6); MONO % 6.6 % (1.0-6.0); RBC 2.96 10^6/uL (3.5-6.1); RED CELL DISTRIBUTION WIDTH 16.2 % (11.5-14.5); WHITE BLOOD COUNT 21.2 10^3/uL (4.5-11.0)
[2018-07-14 07:44] LABS: ALB/GLOB RATIO 0.6 (1.1-1.8); ALBUMIN 2.1 g/dL (3.0-4.8); ALT/SGPT 31 U/L (7-56); AST/SGOT 47 U/L (17-59); BLOOD UREA NITROGEN 31 mg/dL (7-21); CALCIUM 9.5 mg/dL (8.4-10.5); GFR NON-AFRICAN AMERICAN > 60
[2018-07-14] MEDS: Acetylcysteine 20% Inhal Soln (4ml) IH SCH ×4 (08:06→19:21)
[2018-07-14] MEDS: Levalbuterol 0.63 MG/3 ML Inhal Soln UD IH SCH ×3 (08:16→19:21)
[2018-07-14] MEDS: Insulin Reg-HIGH-Coverage SC SCH ×4 (10:52→22:41)
[2018-07-14] MEDS: Phenytoin 100 mg/4 ml Oral Susp UD PO SCH ×3 (10:52→17:00)
[2018-07-14] MEDS: levETIRAcetam 500 mg/5ml UD cups PO SCH ×2 (10:52→17:00)
[2018-07-14] MEDS: Pantoprazole 40 mg Susp UD PEG SCH (10:52)
[2018-07-14 13:12] LABS: INR 1.31; PROTHROMBIN TIME 15.2 SECONDS (9.4-12.5)
[2018-07-14 13:20] LABS: BASO # 0.02 K/mm3 (0.0-2.0); BASO % 0.1 % (0.0-3.0); EOS # 0.1 (0.0-0.7); EOS % 0.6 % (1.5-5.0); GRAN # 18.43 (1.4-6.5); HEMOGLOBIN 9.5 g/dL (14.0-18.0); LYMPH # 1.8 (1.2-3.4); LYMPH % 8.3 % (22.0-35.0); MEAN CELL VOLUME 90.8 fl (80.0-105.0); MEAN CORPUSCULAR HEMOGLOBIN 30.1 pg (25.0-35.0); MEAN CORPUSCULAR HGB CONC 33.1 g/dl (31.0-37.0); MEAN PLATELET VOLUME 11.6 fl (7.0-11.0); MONO # 1.3 (0.1-0.6); RBC 3.16 10^6/uL (3.5-6.1); RED CELL DISTRIBUTION WIDTH 16.2 % (11.5-14.5); WHITE BLOOD COUNT 21.7 10^3/uL (4.5-11.0)
--- NOTE | 2018-07-14 14:00 | CP.PCM.PN ---
Subjective - Date & Time of Evaluation Date of Evaluation: 07/14/18 Time of Evaluation: 13:53 - Subjective Subjective: Patient seen and examined. Pt has been bleeding from mouth with clots. Multiple family members at bedside Objective - Vital Signs/Intake and Output Vital Signs (last 24 hours): Temp Pulse Resp BP Pulse Ox 98.8 F 91 H 20 113/71 96 07/14/18 08:26 07/14/18 08:26 07/14/18 08:26 07/14/18 08:26 07/14/18 08:26 Intake and Output: 07/14/18 07/14/18 06:59 18:59 Intake Total Output Total Balance - Medications Medications: Current Medications Acetaminophen (Tylenol 650mg/20.3ml Solution Ud) 650 mg PEG Q6H PRN PRN Reason: Temperature Last Admin: 07/10/18 21:24 Dose: 650 mg Acetylcysteine (Acetylcysteine 20%) 4 ml IH TID [facility] Last Admin: 07/14/18 08:06 Dose: 4 ml Albuterol/Ipratropium (Duoneb 3 Mg/0.5 Mg (3 Ml) Ud) 3 ml IH TIDRESP PRN PRN Reason: Shortness of Breath Last Admin: 07/14/18 01:56 EST Dose: 3 ml Baclofen (Lioresal) 5 mg PO TID PRN PRN Reason: Hiccups Diphenhydramine HCl (Benadryl) 25 mg IVP ONCE PRN PRN Reason: Allergy symptoms Last Admin: 07/13/18 23:43 Dose: 25 mg Guaifenesin/Dextromethorphan (Robitussin Dm) 10 ml PO Q4H PRN PRN Reason: Cough Heparin Sodium (Porcine) (Heparin) 5,000 units SC Q8 [facility]; Protocol Last Admin: 07/14/18 06:15 Dose: Not Given Sodium Chloride (Sodium Chloride 0.9%) 1,000 mls @ 100 mls/hr IV .Q10H [facility] Last Admin: 07/12/18 17:20 Dose: 100 mls/hr Meropenem/Sodium Chloride (Merrem Iv 500 Mg/Ns 50 Ml) 500 mg in 50 mls @ 100 mls/hr IVPB Q12 [facility]; Protocol Last Admin: 07/13/18 21:23 Dose: 100 mls/hr Insulin Human Regular (Humulin R High) 0 units SC ACHS [facility]; Protocol Last Admin: 07/14/18 10:52 Dose: 2 unit Levalbuterol HCl (Xopenex) 0.63 mg IH TIDRESP [facility] Last Admin: 07/14/18 08:16 Dose: 0.63 mg Levetiracetam (Keppra) 500 mg PO BID [facility] Last Admin: 07/14/18 10:52 Dose: 500 mg Lorazepam (Ativan) 1 mg PO Q6 PRN; Protocol PRN Reason: Agitation Last Admin: 07/14/18 11:01 Dose: 1 mg Lorazepam (Ativan) 1 mg IVP Q6H PRN; Protocol PRN Reason: Restlessness Metoclopramide HCl (Reglan) 5 mg PO DAILY PRN PRN Reason: Constipation Morphine Sulfate (Morphine) 2 mg IVP Q4H PRN PRN Reason: Pain, moderate (4-7) Pantoprazole Sodium (Protonix Susp) 40 mg PEG DAILY [facility] Last Admin: 07/14/18 10:52 Dose: 40 mg Phenytoin (Dilantin) 100 mg PO TID [facility] Last Admin: 07/14/18 10:52 Dose: 100 mg Saliva Substitute (Saliva Substitute) 0 ml PO QID PRN PRN Reason: Dry mouth Last Admin: 07/13/18 05:32 Dose: 1 ml - Labs Labs: 07/14/18 12:50 07/14/18 07:24 PT 15.2 SECONDS (9.4-12.5) H 07/14/18 12:50 INR 1.31 07/14/18 12:50 - Head Exam Head Exam: ATRAUMATIC, NORMAL INSPECTION Additional comments: Thick clots suctioned from oropharynx, red blood on tongue neck: tracheotomy tube in place - ENT Exam Additional comments: oscar: clots and red blood - Neck Exam Additional comments: tracheotomy tube in place Assessment and Plan (1) Hemoptysis Status: Acute (2) Laryngeal cancer Status: Acute (3) Oropharyngeal mass Status: Acute (4) Aphonia Status: Acute (5) Anemia Status: Chronic (6) Dysphagia Status: Chronic (7) Seizures Status: Chronic (8) Dyspnea and respiratory abnormalities Status: Acute - Assessment and Plan (Free Text) Assessment: Recurrent laryngeal/stoma carcinoma. Pt has been receiving xrt and bleeding noted in throat Plan: Multiple family members present. Arguments among family members with profanity usage. Family has been unwilling to make the patient hospice. Discussions have been occurring over the past week. In my opinion, the cancer is not resectable at this point in time, and he should be made hospice status and comfort measures only.
--- NOTE | 2018-07-14 14:23 | CP.PCM.PN ---
<Natalie Alvarez - Last Filed: 07/14/18 14:13> Subjective - Date & Time of Evaluation Date of Evaluation: 07/14/18 Time of Evaluation: 14:13 - Subjective Subjective: Natalie Alvarez DO PGY-[address] Edge Pt was seen and examined at bedside this AM. He is awake, alert and oriented. He answers questions appropriately and is aware of his condition. He is currently denying any acute complaints and is unchanged from yesterday. He is now bleeding from his mouth, and when doing suction. After looking into his oropharynx with a light all that was noted were some clots. He denies having any SOB or choking sensation from the bleeding. Objective - Vital Signs/Intake and Output Vital Signs (last 24 hours): Temp Pulse Resp BP Pulse Ox 98.8 F 91 H 20 113/71 96 07/14/18 08:26 07/14/18 08:26 07/14/18 08:26 07/14/18 08:26 07/14/18 08:26 Intake and Output: 07/14/18 07/14/18 06:59 18:59 Intake Total Output Total Balance - Medications Medications: Current Medications Acetaminophen (Tylenol 650mg/20.3ml Solution Ud) 650 mg PEG Q6H PRN PRN Reason: Temperature Last Admin: 07/10/18 21:24 Dose: 650 mg Acetylcysteine (Acetylcysteine 20%) 4 ml IH TID [facility] Last Admin: 07/14/18 13:54 Dose: 4 ml Albuterol/Ipratropium (Duoneb 3 Mg/0.5 Mg (3 Ml) Ud) 3 ml IH TIDRESP PRN PRN Reason: Shortness of Breath Last Admin: 07/14/18 01:56 EST Dose: 3 ml Baclofen (Lioresal) 5 mg PO TID PRN PRN Reason: Hiccups Diphenhydramine HCl (Benadryl) 25 mg IVP ONCE PRN PRN Reason: Allergy symptoms Last Admin: 07/13/18 23:43 Dose: 25 mg Guaifenesin/Dextromethorphan (Robitussin Dm) 10 ml PO Q4H PRN PRN Reason: Cough Heparin Sodium (Porcine) (Heparin) 5,000 units SC Q8 [facility]; Protocol Last Admin: 07/14/18 06:15 Dose: Not Given Sodium Chloride (Sodium Chloride 0.9%) 1,000 mls @ 100 mls/hr IV .Q10H [facility] Last Admin: 07/12/18 17:20 Dose: 100 mls/hr Meropenem/Sodium Chloride (Merrem Iv 500 Mg/Ns 50 Ml) 500 mg in 50 mls @ 100 mls/hr IVPB Q12 [facility]; Protocol Last Admin: 07/13/18 21:23 Dose: 100 mls/hr Insulin Human Regular (Humulin R High) 0 units SC ACHS [facility]; Protocol Last Admin: 07/14/18 10:52 Dose: 2 unit Levalbuterol HCl (Xopenex) 0.63 mg IH TIDRESP [facility] Last Admin: 07/14/18 13:59 Dose: 0.63 mg Levetiracetam (Keppra) 500 mg PO BID [facility] Last Admin: 07/14/18 10:52 Dose: 500 mg Lorazepam (Ativan) 1 mg PO Q6 PRN; Protocol PRN Reason: Agitation Last Admin: 07/14/18 11:01 Dose: 1 mg Lorazepam (Ativan) 1 mg IVP Q6H PRN; Protocol PRN Reason: Restlessness Metoclopramide HCl (Reglan) 5 mg PO DAILY PRN PRN Reason: Constipation Morphine Sulfate (Morphine) 2 mg IVP Q4H PRN PRN Reason: Pain, moderate (4-7) Pantoprazole Sodium (Protonix Susp) 40 mg PEG DAILY [facility] Last Admin: 07/14/18 10:52 Dose: 40 mg Phenytoin (Dilantin) 100 mg PO TID [facility] Last Admin: 07/14/18 10:52 Dose: 100 mg Saliva Substitute (Saliva Substitute) 0 ml PO QID PRN PRN Reason: Dry mouth Last Admin: 07/13/18 05:32 Dose: 1 ml - Labs Labs: 07/14/18 12:50 07/14/18 07:24 PT 15.2 SECONDS (9.4-12.5) H 07/14/18 12:50 INR 1.31 07/14/18 12:50 - Constitutional Appears: Cachectic, Chronically Ill - Head Exam Head Exam: ATRAUMATIC, NORMAL INSPECTION, NORMOCEPHALIC - Eye Exam Eye Exam: EOMI, Normal appearance, PERRL - ENT Exam Additional comments: There is blood coming from oropharynx, likely due to tumor spread and erosion. There is no identifiable source. - Neck Exam Additional comments: Pt has tracheostomy in place that is showing no surrounding erythema, or drainage. - Respiratory Exam Respiratory Exam: Decreased Breath Sounds, NORMAL BREATHING PATTERN. absent: Accessory Muscle Use, Rales, Rhonchi, Wheezes, Stridor - Cardiovascular Exam Cardiovascular Exam: RRR, +S1, +S2. absent: Gallop, Rubs - GI/Abdominal Exam GI & Abdominal Exam: Soft, Normal Bowel Sounds. absent: Tenderness Additional comments: Peg tube in place with no surrounding erythema or drainage. - Extremities Exam Extremities Exam: Full ROM, Normal Capillary Refill. absent: Tenderness - Back Exam Back Exam: NORMAL INSPECTION. absent: CVA tenderness (L), CVA tenderness (R) - Neurological Exam Neurological Exam: Awake, Normal Gait, Oriented x3 - Psychiatric Exam Psychiatric exam: Normal Affect, Normal Mood - Skin Skin Exam: Dry, Intact (except where noted above), Normal Color, Warm Assessment and Plan - Assessment and Plan (Free Text) Assessment: 73 yo M with PMH of oropharyngeal CA (s/p laryngectomy and tracheostomy), COPD, seizure disorder, and arthritis admitted for worsening SOB, secretions, and hemoptysis. He has been spiking fevers and looks worse. Family meeting was held yesterday to discuss that Mr. Bermeo can no longer take care of himself at home alone. His was present at the meeting and she understood. Will discuss case with hospice on Sunday. Plan: 1. Worsening Secretions/Hemoptysis - Now suctioning himself - He had recurrent bout of blood in oropharynx. H&H is stable, platelets wnl, coags wnl - ENT called and stated that there was nothing further he could do on the case and cautery is not an option due to the diffuse progression and invasion of the tumor. - Family called and updated on the pts status, who expressed understanding. - Type and Cross and Type and screen ordered if blood transfusion is necessary - Will continue to monitor 2. Persistent leukocytosis: - Still elevated but stable - No fevers overnight last night - UA with pyuria, small leukocyte esterase, however urine cx negative to date - Per ID, abx switched to merem - ID following, recs appreciated 3. Hx of oropharyngeal SCC - Patient appears lethargic on exam but is still able to talk and respond appropriately - Family meeting yesterday clarified with family that he will not be able to go home alone without assistance - He refused palliative radiation - F/u additional palliative care recs for plan after discharge - Palliative care, Dr. Goldberg, and Dr. Alexandra following, recs appreciated 4. Hyperglycemia - Improved on ISS, continue 5. Hypercalcemia - Initial hypercalcemia was likely 2/2 worsening tumor burden - improved to 9.5 today - Continue NS @ 100 cc/hr 6. Hypokalemia - Resolved, continue to monitor 7. Hx of seizure disorder - Continue keppra and dilantin 8. PPX: GI/DVT : protonix, SCD, SC heparin DNR/DNI Tube feedings w/aspiration pxns, adjustments PRN per email engineer Will discuss palliative care options with pt and family on Sunday, though family is update on pts condition and status. Case and plan reviewed and discussed with my attending Dr. Minesh Alvarez DO PGY1 <Lucio Edge - Last Filed: 07/14/18 14:51> Objective - Vital Signs/Intake and Output Vital Signs (last 24 hours): Temp Pulse Resp BP Pulse Ox 98.8 F 91 H 20 113/71 96 07/14/18 08:26 07/14/18 08:26 07/14/18 08:26 07/14/18 08:26 07/14/18 08:26 Intake and Output: 07/14/18 07/14/18 06:59 18:59 Intake Total Output Total Balance - Medications Medications: Current Medications Acetaminophen (Tylenol 650mg/20.3ml Solution Ud) 650 mg PEG Q6H PRN PRN Reason: Temperature Last Admin: 07/10/18 21:24 Dose: 650 mg Acetylcysteine (Acetylcysteine 20%) 4 ml IH TID [facility] Last Admin: 07/14/18 13:54 Dose: 4 ml Albuterol/Ipratropium (Duoneb 3 Mg/0.5 Mg (3 Ml) Ud) 3 ml IH TIDRESP PRN PRN Reason: Shortness of Breath Last Admin: 07/14/18 01:56 EST Dose: 3 ml Baclofen (Lioresal) 5 mg PO TID PRN PRN Reason: Hiccups Diphenhydramine HCl (Benadryl) 25 mg IVP ONCE PRN PRN Reason: Allergy symptoms Last Admin: 07/13/18 23:43 Dose: 25 mg Guaifenesin/Dextromethorphan (Robitussin Dm) 10 ml PO Q4H PRN PRN Reason: Cough Heparin Sodium (Porcine) (Heparin) 5,000 units SC Q8 [facility]; Protocol Last Admin: 07/14/18 06:15 Dose: Not Given Sodium Chloride (Sodium Chloride 0.9%) 1,000 mls @ 100 mls/hr IV .Q10H [facility] Last Admin: 07/12/18 17:20 Dose: 100 mls/hr Meropenem/Sodium Chloride (Merrem Iv 500 Mg/Ns 50 Ml) 500 mg in 50 mls @ 100 m ls/hr IVPB Q12 [facility]; Protocol Last Admin: 07/13/18 21:23 Dose: 100 mls/hr Insulin Human Regular (Humulin R High) 0 units SC ACHS [facility]; Protocol Last Admin: 07/14/18 10:52 Dose: 2 unit Levalbuterol HCl (Xopenex) 0.63 mg IH TIDRESP [facility] Last Admin: 07/14/18 13:59 Dose: 0.63 mg Levetiracetam (Keppra) 500 mg PO BID [facility] Last Admin: 07/14/18 10:52 Dose: 500 mg Lorazepam (Ativan) 1 mg PO Q6 PRN; Protocol PRN Reason: Agitation Last Admin: 07/14/18 11:01 Dose: 1 mg Lorazepam (Ativan) 1 mg IVP Q6H PRN; Protocol PRN Reason: Restlessness Metoclopramide HCl (Reglan) 5 mg PO DAILY PRN PRN Reason: Constipation Morphine Sulfate (Morphine) 2 mg IVP Q4H PRN PRN Reason: Pain, moderate (4-7) Pantoprazole Sodium (Protonix Susp) 40 mg PEG DAILY [facility] Last Admin: 07/14/18 10:52 Dose: 40 mg Phenytoin (Dilantin) 100 mg PO TID [facility] Last Admin: 07/14/18 10:52 Dose: 100 mg Saliva Substitute (Saliva Substitute) 0 ml PO QID PRN PRN Reason: Dry mouth Last Admin: 07/13/18 05:32 Dose: 1 ml - Labs Labs: 07/14/18 12:50 07/14/18 07:24 PT 15.2 SECONDS (9.4-12.5) H 07/14/18 12:50 INR 1.31 07/14/18 12:50 Attending/Attestation - Attestation I have personally seen and examined this patient.: Yes I have fully participated in the care of the patient.: Yes I have reviewed all pertinent clinical information, including history, physical exam and plan: Yes Notes (Text): 07/14/18 14:44 Attending note; Patient seen and examined with resident. Patient is alert and awake. patient had significant bleeding from the mouth. Mostly clots evacuated with suctioning. ENT evaluation appreciated. 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 1. active hemoptysis/bleeding from the throat; currently controlled. Evaluated by ENT. In their opinion the cancer is not resectable at this point in time, and he should be made hospice status and comfort measures only. Hemoglobin is stable. Monitor for recurrent bleeding. 2. Leukocytosis.Patient is afebrile and nontoxic . Urine culture is negative. Blood cultures with no growth. Repeat cultures negative.. Currently on IV Merrem. Tracheostomy was changed 07/03/2018. Repeat chest x-rays negative for new infi ltrate. 3. Emphysema. Chest CT without contrast radiologist showed bullous emphysema. Continue nebulizer treatments and chest PT. 4. History of oropharyngeal cancer. tracheostomy in place. oral care.recurrent bleeding on and off. Transfuse as needed. Patient is refusing palliative radiation treatment. 5. History of seizure disorder. Continue Keppra and phenytoin. 6. GI/DVT prophylaxis. Protonix/SCDs. 7. Continue PEG feeding as tolerated. patient with increasing residual. Hold feeding as needed. 8. anemia; Hemoglobin is 9.5. patient's condition discussed patient's Sonia in detail by the bedside. Patient's condition discussed with patient's daughter Dottie by the bedside. Patient's condition discussed with patient's Sister Cary in [facility]. Family aware of poor prognosis. Patient's agreed for hospice care. Consult placed For hospice care. Will discuss with Amara guerrier tomorrow for hospice care. Prognosis poor. Patient is DNR/DNI.
--- NOTE | 2018-07-14 14:25 | RAD ---
Date of service: 07/14/2018 PROCEDURE: Left knee two views HISTORY: lt knee pain COMPARISON: TECHNIQUE: Two views FINDINGS: There is joint space narrowing especially in the lateral compartment. No evidence of fracture. No evidence of joint effusion IMPRESSION: No acute findings
[2018-07-14] MEDS: MEROPENEM 500 MG in NS 500 MG/50 ML BAG IVPB SCH ×2 (14:35→21:12)
[2018-07-14] MEDS: Sodium Chloride 0.9% 1,000 ML IV SCH (14:42)
--- NOTE | 2018-07-14 15:28 | PCM.RRT ---
OVERCASTER Nurse Assessment - Situation Date: 07/14/18 Time OVERCASTER was called: 12:22 OVERCASTER Responder Arrival Time: 12:22 OVERCASTER Location:: [address] [place] [address] Room Number: [id number] OVERCASTER Reason for Call: Respiratory Distress OVERCASTER Called By: RN - IV IV Inserted during OVERCASTER?: No - Respiratory Oxygen Delivery Method: Trach Collar @% Oxygen Flow Rate: 10 Received Nebulizer Treatments:: No Was the Patient Ventilated with Bag/Mask 100% O2?: No Secretions Suctioned?: Yes (Blood) Was the Patient Intubated?: No Was the Patient Placed on a Ventilator?: No - Diagnostic Test Ordered EKG: No Chest X-Ray: No CT Scan: No - Stat Labs Ordered OVERCASTER Stat Labs Ordered: CBC OVERCASTER Other Labs Ordered: INR CPR started during OVERCASTER?: No - Vital Signs Vital Sign: Rapid Response Vital Sign Blood Pressure 170/104 Pulse Rate 108 Respiratory Rate 32 Temperature 98.7 F Oxygen Saturation 93 - Finger Stick Blood Glucose Finger Stick Blood Glucose: 179 - Time OVERCASTER Ended Time OVERCASTER Ended: 12:50 - Vital Signs at end of OVERCASTER Vital Signs at end of OVERCASTER: Rapid Response End Vital Sign Blood Pressure 163/83 Pulse Rate 109 Respiratory Rate 32 Temperature 98.7 F O2 Sat by Pulse Oximetry 100 - Recommendations Notifications: Attending Physician, Consultations, Family or Designated Caregiver I.Reason for OVERCASTER - A) Acute Change in Patient: Subjective: Rapid response was called and when we arrived on scene pt was noted to be sitting up in no acute distress but was having some bleeding from the mouth. Pts O2 sat was ok and trach was still in place. Pt was asked if he was having any difficulty breathing to which he denied. Pt was being suctioned to have excess blood removed from oral cavity. Tongue depressor was used to help visualize and assess oropharynx to detect the origin of bleeding. No true source could be found, and only clots were noted to be in oral cavity. ENT was called and they stated that this is likely tumor erosion or invasion into local vasculature and that cautery would not be a suitable option for this kind of bleeding. Pts H&H and platelets were noted to be normal. Pt was not hypotensive upon BP check. CBC, and Coags were ordered as were type and cross and type and screen in case pts H&H became low. Pts bleeding improved with the suctioning and he is at baseline mentation. Pts family was contacted and updated on the pts status. - Neurological Status (Select all that apply): Alert, Responsive, Oriented, Verbal, Follows Commands - Respiratory Oxygen Delivery Method: Trach Collar @% Oxygen Flow Rate: 10 - Constitutional Appears: Non-toxic, No Acute Distress, Cachectic, Chronically Ill - Head Head Exam: ATRAUMATIC, NORMAL INSPECTION, NORMOCEPHALIC Additional Comments: There is blood coming from oropharynx with clots visible, likely due to tumor spread and erosion. There is no identifiable source. Pt has tracheostomy in place that is showing no surrounding erythema, or drainage. - Eyes Eye Exam: EOMI, Normal appearance, PERRL - Respiratory Exam Respiratory Exam: Decreased Breath Sounds, NORMAL BREATHING PATTERN. absent: Accessory Muscle Use, Rales, Rhonchi, Wheezes, Respiratory Distress, Stridor - Cardiovascular Exam Cardiovascular Exam: Tachycardia, +S1, +S2. absent: Gallop, Rubs - GI/Abdominal Exam GI & Abdominal Exam: Soft, Normal Bowel Sounds. absent: Tenderness - Neurological Exam Neurological Exam: Alert, Awake, Oriented x3 Plan - Assessment of Findings&Treatment Plan - CBC and Coags were ordered - Type and cross and type and screen - ENT contacted though they stated nothing further to do - Family contacted and updated on pts status - Pt in no acute distress, VSS and H&H is also stable - Will continue to monitor
--- NOTE | 2018-07-14 17:08 | CP.PCM.PN ---
Subjective - Date & Time of Evaluation Date of Evaluation: 07/13/18 Time of Evaluation: 19:00 - Subjective Subjective: No acute events. Complaining of some left knee discomfort. Otherwise OK ROS: 12 ROS otherwise negative Objective - Vital Signs/Intake and Output Vital Signs (last 24 hours): Temp Pulse Resp BP Pulse Ox 98.8 F 91 H 20 113/71 96 07/14/18 08:26 07/14/18 08:26 07/14/18 08:26 07/14/18 08:26 07/14/18 08:26 Intake and Output: 07/14/18 07/14/18 06:59 18:59 Intake Total Output Total Balance - Medications Medications: Current Medications Acetaminophen (Tylenol 650mg/20.3ml Solution Ud) 650 mg PEG Q6H PRN PRN Reason: Temperature Last Admin: 07/10/18 21:24 Dose: 650 mg Acetylcysteine (Acetylcysteine 20%) 4 ml IH TID [facility] Last Admin: 07/14/18 13:54 Dose: 4 ml Albuterol/Ipratropium (Duoneb 3 Mg/0.5 Mg (3 Ml) Ud) 3 ml IH TIDRESP PRN PRN Reason: Shortness of Breath Last Admin: 07/14/18 01:56 EST Dose: 3 ml Baclofen (Lioresal) 5 mg PO TID PRN PRN Reason: Hiccups Diphenhydramine HCl (Benadryl) 25 mg IVP ONCE PRN PRN Reason: Allergy symptoms Last Admin: 07/13/18 23:43 Dose: 25 mg Guaifenesin/Dextromethorphan (Robitussin Dm) 10 ml PO Q4H PRN PRN Reason: Cough Heparin Sodium (Porcine) (Heparin) 5,000 units SC Q8 [facility]; Protocol Last Admin: 07/14/18 14:33 Dose: Not Given Sodium Chloride (Sodium Chloride 0.9%) 1,000 mls @ 100 mls/hr IV .Q10H [facility] Last Admin: 07/14/18 14:42 Dose: 100 mls/hr Meropenem/Sodium Chloride (Merrem Iv 500 Mg/Ns 50 Ml) 500 mg in 50 mls @ 100 mls/hr IVPB Q12 [facility]; Protocol Last Admin: 07/14/18 14:35 Dose: 100 mls/hr Insulin Human Regular (Humulin R High) 0 units SC ACHS [facility]; Protocol Last Admin: 07/14/18 11:34 Dose: Not Given Levalbuterol HCl (Xopenex) 0.63 mg IH TIDRESP [facility] Last Admin: 07/14/18 13:59 Dose: 0.63 mg Levetiracetam (Keppra) 500 mg PO BID [facility] Last Admin: 07/14/18 10:52 Dose: 500 mg Lorazepam (Ativan) 1 mg IVP Q6H PRN; Protocol PRN Reason: Restlessness Last Admin: 07/14/18 13:43 Dose: 1 mg Metoclopramide HCl (Reglan) 5 mg PO DAILY PRN PRN Reason: Constipation Morphine Sulfate (Morphine) 2 mg IVP Q4H PRN PRN Reason: Pain, moderate (4-7) Pantoprazole Sodium (Protonix Susp) 40 mg PEG DAILY [facility] Last Admin: 07/14/18 10:52 Dose: 40 mg Phenytoin (Dilantin) 100 mg PO TID [facility] Last Admin: 07/14/18 14:34 Dose: 100 mg Saliva Substitute (Saliva Substitute) 0 ml PO QID PRN PRN Reason: Dry mouth Last Admin: 07/13/18 05:32 Dose: 1 ml - Labs Labs: 07/14/18 12:50 07/14/18 07:24 PT 15.2 SECONDS (9.4-12.5) H 07/14/18 12:50 INR 1.31 07/14/18 12:50 - Constitutional Appears: Non-toxic - Head Exam Head Exam: ATRAUMATIC - Eye Exam Eye Exam: EOMI, Normal appearance - ENT Exam Additional comments: Tracheostomy in place; protuberant tongue; - Respiratory Exam Respiratory Exam: Clear to Ausculation Bilateral, NORMAL BREATHING PATTERN - Cardiovascular Exam Cardiovascular Exam: REGULAR RHYTHM, +S1, +S2. absent: Murmur - GI/Abdominal Exam GI & Abdominal Exam: Soft, Normal Bowel Sounds. absent: Tenderness - Extremities Exam Extremities Exam: Full ROM, Normal Capillary Refill, Normal Inspection. absent: Joint Swelling, Pedal Edema Additional comments: TTP of left knee patella; unable to ballot fluid; no erythema evident - Skin Skin Exam: Dry, Intact, Normal Color, Warm Assessment and Plan - Assessment and Plan (Free Text) Assessment: Mr. 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 Hospital course complicated by leukocytosis and hypercalcemia possibly both related to tumor burden though infection still being r/o. Patient declined radiation earlier this week which could have provided some palliative control. Plan to obtain XR of knee due to pain and have goals of care discussion with family on Sunday Terry Alexandra MD Oncology Service
--- NOTE | 2018-07-14 17:14 | CP.PCM.PN ---
Subjective - Date & Time of Evaluation Date of Evaluation: 07/14/18 Time of Evaluation: 18:00 - Subjective Subjective: Patient had rapid response due to bleeding from oropharynx. Patient repeat blood wnl. Argument between family members ( and children) regarding goals of care. Patient now sedated with morphine and ativan though arousable ROS: unable to assess Objective - Vital Signs/Intake and Output Vital Signs (last 24 hours): Temp Pulse Resp BP Pulse Ox 98.8 F 91 H 20 113/71 96 07/14/18 08:26 07/14/18 08:26 07/14/18 08:26 07/14/18 08:26 07/14/18 08:26 Intake and Output: 07/14/18 07/14/18 06:59 18:59 Intake Total Output Total Balance - Medications Medications: Current Medications Acetaminophen (Tylenol 650mg/20.3ml Solution Ud) 650 mg PEG Q6H PRN PRN Reason: Temperature Last Admin: 07/10/18 21:24 Dose: 650 mg Acetylcysteine (Acetylcysteine 20%) 4 ml IH TID [facility] Last Admin: 07/14/18 13:54 Dose: 4 ml Albuterol/Ipratropium (Duoneb 3 Mg/0.5 Mg (3 Ml) Ud) 3 ml IH TIDRESP PRN PRN Reason: Shortness of Breath Last Admin: 07/14/18 01:56 EST Dose: 3 ml Baclofen (Lioresal) 5 mg PO TID PRN PRN Reason: Hiccups Diphenhydramine HCl (Benadryl) 25 mg IVP ONCE PRN PRN Reason: Allergy symptoms Last Admin: 07/13/18 23:43 Dose: 25 mg Guaifenesin/Dextromethorphan (Robitussin Dm) 10 ml PO Q4H PRN PRN Reason: Cough Heparin Sodium (Porcine) (Heparin) 5,000 units SC Q8 [facility]; Protocol Last Admin: 07/14/18 14:33 Dose: Not Given Sodium Chloride (Sodium Chloride 0.9%) 1,000 mls @ 100 mls/hr IV .Q10H [facility] Last Admin: 07/14/18 14:42 Dose: 100 mls/hr Meropenem/Sodium Chloride (Merrem Iv 500 Mg/Ns 50 Ml) 500 mg in 50 mls @ 100 mls/hr IVPB Q12 [facility]; Protocol Last Admin: 07/14/18 14:35 Dose: 100 mls/hr Insulin Human Regular (Humulin R High) 0 units SC ACHS [facility]; Protocol Last Admin: 07/14/18 11:34 Dose: Not Given Levalbuterol HCl (Xopenex) 0.63 mg IH TIDRESP [facility] Last Admin: 07/14/18 13:59 Dose: 0.63 mg Levetiracetam (Keppra) 500 mg PO BID [facility] Last Admin: 07/14/18 10:52 Dose: 500 mg Lorazepam (Ativan) 1 mg IVP Q6H PRN; Protocol PRN Reason: Restlessness Last Admin: 07/14/18 13:43 Dose: 1 mg Metoclopramide HCl (Reglan) 5 mg PO DAILY PRN PRN Reason: Constipation Morphine Sulfate (Morphine) 2 mg IVP Q4H PRN PRN Reason: Pain, moderate (4-7) Pantoprazole Sodium (Protonix Susp) 40 mg PEG DAILY [facility] Last Admin: 07/14/18 10:52 Dose: 40 mg Phenytoin (Dilantin) 100 mg PO TID [facility] Last Admin: 07/14/18 14:34 Dose: 100 mg Saliva Substitute (Saliva Substitute) 0 ml PO QID PRN PRN Reason: Dry mouth Last Admin: 07/13/18 05:32 Dose: 1 ml - Labs Labs: 07/14/18 12:50 07/14/18 07:24 PT 15.2 SECONDS (9.4-12.5) H 07/14/18 12:50 INR 1.31 07/14/18 12:50 - Constitutional Appears: Non-toxic - Head Exam Head Exam: ATRAUMATIC - Eye Exam Eye Exam: Normal appearance - Neck Exam Additional comments: tracheostomy in place; some sanguinous fluid previously noted around oropharynx - Respiratory Exam Respiratory Exam: Clear to Ausculation Bilateral, NORMAL BREATHING PATTERN - Cardiovascular Exam Cardiovascular Exam: REGULAR RHYTHM, +S1, +S2. absent: Murmur - GI/Abdominal Exam GI & Abdominal Exam: Soft, Normal Bowel Sounds. absent: Tenderness - Extremities Exam Extremities Exam: Full ROM, Normal Capillary Refill, Normal Inspection. absent: Joint Swelling, Pedal Edema Assessment and Plan - Assessment and Plan (Free Text) Assessment: Mr. Bermeo is a 73 y/o man with pmhx significant for SCC s/p total l arygnectomy with trach now with local recurrence. Hospital course complicated by leukocytosis and hypercalcemia possibly both related to tumor burden though infection still being r/o. Hospital course not further complicated by rapid response in setting of bleeding around oropharynx likely from tumor. With patient declining palliative XRT for local control (which could be a possible assistance) hospice will need to be discussed with family further. Several family members are in disagreement. Patient's sisters coming tomorrow. Plan on tentative goals of care conversation at 3pm when sister, , and rest of family members are availible. Agree for hospice evaluation by primary team. We will continue to follow. Prior XR of knee from yesterday was wnl. Terry Alexandra MD Oncology Service
[2018-07-14 17:19] VITALS: RESP 19
--- NOTE | 2018-07-14 18:01 | CP.PCM.PN ---
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 Subsequently in 2016 patient was found to have recurrence of throat CA. He presented most recently in 05/2018 w/ large soft tissue mass in oropharyngeal region; during this visit patient received PEG tube placement. He was to follow up with heme/onc Dr. Cleveland however reported he was unable to make appt due to poor transportation. Patient reports he currently not undergoing radiation/chemotherapy at this time. Remainder of PMHx is significant for COPD, Seizure, and arthritis. He presented to [facility] 07/02 w/ complaints of SOB, Hemoptysis, worsening secretions over the past month. Patient reports hemoptysis as light pink tinged mucopurlent sputum does not report overtly bloody or clotted sputum. He says his SOB feels as if he is not getting enough air through his tracheostomy. Patient reported he sees ENT Dr. Tapia for trach management. ID called for evaluation of potential HCAP. CT Chest showing bullous emphysema but no infiltrate. Cannot rule out early infiltrate. Patient still with leukocytosis. On trach collar with supplemental O2. Patient is awake, alert, and answer questions appropriately. He states that he is feeling better today. Patient states that is less SOB and breathing easier. Noted that the patient had fever up to 102.3 F overnight. Patient claims that he feels well and has improved. Repeat blood and urine cultures sent. He remains on Meropenem and IV Vancomycin. Vancomycin on hold given the last trough level was 35. Currently remains on Meropenem alone. Supposed to be on palliative radiation therapy but patient has been refusing therapy. Now DNR/DNI. Patient is arousable but lethargic and fatigued. Family in a bit of disarray regarding the patient's future and regarding the possibility of placing the patient in hospice. Noted that today the patient had bleeding around the trach site which was likely secondary to the soft tissues mass/tumor there. Objective - Vital Signs/Intake and Output Vital Signs (last 24 hours): Temp Pulse Resp BP Pulse Ox 97.8 F 97 H 19 146/84 92 L 07/14/18 17:19 07/14/18 17:19 07/14/18 17:19 07/14/18 17:19 07/14/18 17:19 Intake and Output: 07/14/18 07/14/18 06:59 18:59 Intake Total Output Total Balance - Medications Medications: Current Medications Acetaminophen (Tylenol 650mg/20.3ml Solution Ud) 650 mg PEG Q6H PRN PRN Reason: Temperature Last Admin: 07/10/18 21:24 Dose: 650 mg Acetylcysteine (Acetylcysteine 20%) 4 ml IH TID [facility] Last Admin: 07/14/18 13:54 Dose: 4 ml Albuterol/Ipratropium (Duoneb 3 Mg/0.5 Mg (3 Ml) Ud) 3 ml IH TIDRESP PRN PRN Reason: Shortness of Breath Last Admin: 07/14/18 01:56 EST Dose: 3 ml Baclofen (Lioresal) 5 mg PO TID PRN PRN Reason: Hiccups Diphenhydramine HCl (Benadryl) 25 mg IVP ONCE PRN PRN Reason: Allergy symptoms Last Admin: 07/13/18 23:43 Dose: 25 mg Guaifenesin/Dextromethorphan (Robitussin Dm) 10 ml PO Q4H PRN PRN Reason: Cough Heparin Sodium (Porcine) (Heparin) 5,000 units SC Q8 [facility]; Protocol Last Admin: 07/14/18 14:33 Dose: Not Given Sodium Chloride (Sodium Chloride 0.9%) 1,000 mls @ 100 mls/hr IV .Q10H [facility] Last Admin: 07/14/18 14:42 Dose: 100 mls/hr Meropenem/Sodium Chloride (Merrem Iv 500 Mg/Ns 50 Ml) 500 mg in 50 mls @ 100 mls/hr IVPB Q12 [facility]; Protocol Last Admin: 07/14/18 14:35 Dose: 100 mls/hr Insulin Human Regular (Humulin R High) 0 units SC ACHS [facility]; Protocol Last Admin: 07/14/18 17:12 Dose: Not Given Levalbuterol HCl (Xopenex) 0.63 mg IH TIDRESP [facility] Last Admin: 07/14/18 13:59 Dose: 0.63 mg Levetiracetam (Keppra) 500 mg PO BID [facility] Last Admin: 07/14/18 17:00 Dose: 500 mg Lorazepam (Ativan) 1 mg IVP Q6H PRN; Protocol PRN Reason: Restlessness Last Admin: 07/14/18 13:43 Dose: 1 mg Metoclopramide HCl (Reglan) 5 mg PO DAILY PRN PRN Reason: Constipation Morphine Sulfate (Morphine) 2 mg IVP Q4H PRN PRN Reason: Pain, moderate (4-7) Pantoprazole Sodium (Protonix Susp) 40 mg PEG DAILY [facility] Last Admin: 07/14/18 10:52 Dose: 40 mg Phenytoin (Dilantin) 100 mg PO TID [facility] Last Admin: 07/14/18 17:00 Dose: 100 mg Saliva Substitute (Saliva Substitute) 0 ml PO QID PRN PRN Reason: Dry mouth Last Admin: 07/13/18 05:32 Dose: 1 ml - Labs Labs: 07/14/18 12:50 07/14/18 07:24 PT 15.2 SECONDS (9.4-12.5) H 07/14/18 12:50 INR 1.31 07/14/18 12:50 - Constitutional Appears: Non-toxic, No Acute Distress, Chronically Ill - Head Exam Head Exam: ATRAUMATIC, NORMOCEPHALIC - Eye Exam Eye Exam: EOMI, PERRL Pupil Exam: NORMAL ACCOMODATION, PERRL - ENT Exam ENT Exam: Mucous Membranes Moist, Normal External Ear Exam, TM's Normal Bilaterally - Neck Exam Neck Exam: Full ROM, Normal Inspection - Respiratory Exam Respiratory Exam: Clear to Ausculation Bilateral, NORMAL BREATHING PATTERN. absent: Rales, Rhonchi, Wheezes - Cardiovascular Exam Cardiovascular Exam: REGULAR RHYTHM, RRR, +S1, +S2 - GI/Abdominal Exam GI & Abdominal Exam: Soft, Normal Bowel Sounds. absent: Distended, Tenderness Additional comments: PEG in place. 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 Brought to [facility] for worsening SOB and hemoptysis. Found to have increased leukocytosis. CT scan showed bullous emphysema but no infiltrate. Started on IV Vancomycin and Zosyn. Obtain procalcitonin value. Cannot rule out leukocytosis secondary to oropharyngeal SCC. Continue antibiotics in meantime. Pharyngeal mass has increased in size compared to prior studies. Received 3 days of Zosyn. Clinically the patient appears better but still with leukocytosis. Would check urine cultures and urinalysis as well. Carr cultures. Leukocytosis above patient's prior baseline with mild left shift. Cannot rule out an early pneumonia. Also cannot rule out whether increased leukocytosis may be secondary to the patient's recurrent oropharyngeal SCC. Persistent leukocytosis. Remains afebrile. Persistent leukocytosis. Given 3 days of Zosyn. Still on Vancomycin IV. Monitor patient at this point. Cultures negative. No clear explanation for leukocytosis at this point. Leukocytosis increasing today. Fever of 102.3 F two nights ago. Meropenem and Vancomycin being administered. Stopped Vancomycin for now. Procalcitonin of 0.18. Unclear at this time if the patient wanted to continue with radiation therapy as he was refusing yesterday and stating he was not sure if he wanted to continue. He is DNI/DNR now. Leukocytosis decreased slightly to 21.7 now. On Meropenem alone for antibiotic therapy. No positive cultures. Very poor overall prognosis. Noted bleeding around trach site today. Family is disarray regarding future care for this patient and possibility of initiating hospice. Thank you for allowing me to participate in the care of the patient, we will follow with you.
[2018-07-14] MEDS: Morphine 2 mg/ml ISec IVP PRN (18:58)
[2018-07-15] MEDS: Morphine 2 mg/ml ISec IVP PRN (02:28)
[2018-07-15 06:42] LABS: ALB/GLOB RATIO 0.6 (1.1-1.8); ALBUMIN 1.9 g/dL (3.0-4.8); ALT/SGPT 36 U/L (7-56); AST/SGOT 60 U/L (17-59); BLOOD UREA NITROGEN 26 mg/dL (7-21); CALCIUM 9.3 mg/dL (8.4-10.5); GFR NON-AFRICAN AMERICAN > 60
[2018-07-15 06:58] LABS: BASO # 0.01 K/mm3 (0.0-2.0); EOS % 0.2 % (1.5-5.0); GRAN # 19.77 (1.4-6.5); GRAN % 88.1 % (50.0-68.0); LYMPH # 1.3 (1.2-3.4); LYMPH % 5.6 % (22.0-35.0); MEAN CELL VOLUME 91.1 fl (80.0-105.0); MEAN CORPUSCULAR HEMOGLOBIN 30.1 pg (25.0-35.0); MEAN PLATELET VOLUME 11.2 fl (7.0-11.0); MONO # 1.4 (0.1-0.6); MONO % 6.1 % (1.0-6.0); RBC 2.36 10^6/uL (3.5-6.1); RED CELL DISTRIBUTION WIDTH 16.5 % (11.5-14.5); WHITE BLOOD COUNT 22.4 10^3/uL (4.5-11.0)
[2018-07-15 07:15] LABS: HEMOGLOBIN 7.1 g/dL (14.0-18.0)
[2018-07-15] MEDS: Insulin Reg-HIGH-Coverage SC SCH ×2 (07:33→12:14)
[2018-07-15] MEDS: Levalbuterol 0.63 MG/3 ML Inhal Soln UD IH SCH ×2 (07:53→13:31)
[2018-07-15] MEDS: Acetylcysteine 20% Inhal Soln (4ml) IH SCH ×2 (07:54→13:31)
[2018-07-15 08:25] VITALS: BP 116/62; PULSE 94; TEMP 98; O2SAT 100
--- NOTE | 2018-07-15 10:00 | CP.PCM.PN ---
Subjective - Date & Time of Evaluation Date of Evaluation: 07/15/18 Time of Evaluation: 09:59 - Subjective Subjective: Hematology/Oncology Progress Note (Dr. Alexandra's Service) Patient seen and assessed at bedside. No acute events noted overnight. Patient refused RT today. Patient denies any further complaints at this time including fevers, chills, headache, chest pain, SOB, abdominal pain, N/V/D/C, changes in urine output, skin changes or any numbness/tingling of any extremity. Objective - Vital Signs/Intake and Output Vital Signs (last 24 hours): Temp Pulse Resp BP Pulse Ox 98 F 94 H 19 116/62 100 07/15/18 08:24 07/15/18 08:24 07/15/18 08:24 07/15/18 08:24 07/15/18 08:24 - Medications Medications: Current Medications Acetaminophen (Tylenol 650mg/20.3ml Solution Ud) 650 mg PEG Q6H PRN PRN Reason: Temperature Last Admin: 07/10/18 21:24 Dose: 650 mg Acetylcysteine (Acetylcysteine 20%) 4 ml IH TID NAVEEN Last Admin: 07/15/18 07:54 Dose: 4 ml Albuterol/Ipratropium (Duoneb 3 Mg/0.5 Mg (3 Ml) Ud) 3 ml IH TIDRESP PRN PRN Reason: Shortness of Breath Last Admin: 07/14/18 01:56 EST Dose: 3 ml Baclofen (Lioresal) 5 mg PO TID PRN PRN Reason: Hiccups Diphenhydramine HCl (Benadryl) 25 mg IVP ONCE PRN PRN Reason: Allergy symptoms Last Admin: 07/13/18 23:43 Dose: 25 mg Guaifenesin/Dextromethorphan (Robitussin Dm) 10 ml PO Q4H PRN PRN Reason: Cough Heparin Sodium (Porcine) (Heparin) 5,000 units SC Q8 [facility]; Protocol Last Admin: 07/15/18 05:20 Dose: Not Given Sodium Chloride (Sodium Chloride 0.9%) 1,000 mls @ 100 mls/hr IV .Q10H [facility] Last Admin: 07/14/18 14:42 Dose: 100 mls/hr Meropenem/Sodium Chloride (Merrem Iv 500 Mg/Ns 50 Ml) 500 mg in 50 mls @ 100 mls/hr IVPB Q12 [facility]; Protocol Last Admin: 07/14/18 21:12 Dose: 100 mls/hr Insulin Human Regular (Humulin R High) 0 units SC ACHS [facility]; Protocol Last Admin: 07/15/18 07:33 Dose: Not Given Levalbuterol HCl (Xopenex) 0.63 mg IH TIDRESP [facility] Last Admin: 07/15/18 07:53 Dose: 0.63 mg Levetiracetam (Keppra) 500 mg PO BID [facility] Last Admin: 07/14/18 17:00 Dose: 500 mg Lorazepam (Ativan) 1 mg IVP Q6H PRN; Protocol PRN Reason: Restlessness Last Admin: 07/14/18 23:45 Dose: 1 mg Metoclopramide HCl (Reglan) 5 mg PO DAILY PRN PRN Reason: Constipation Morphine Sulfate (Morphine) 2 mg IVP Q4H PRN PRN Reason: Pain, moderate (4-7) Last Admin: 07/15/18 02:28 Dose: 2 mg Pantoprazole Sodium (Protonix Susp) 40 mg PEG DAILY [facility] Last Admin: 07/14/18 10:52 Dose: 40 mg Phenytoin (Dilantin) 100 mg PO TID [facility] Last Admin: 07/14/18 17:00 Dose: 100 mg Saliva Substitute (Saliva Substitute) 0 ml PO QID PRN PRN Reason: Dry mouth Last Admin: 07/13/18 05:32 Dose: 1 ml - Labs Labs: 07/15/18 06:00 07/15/18 06:00 PT 15.2 SECONDS (9.4-12.5) H 07/14/18 12:50 INR 1.31 07/14/18 12:50 - Additional Findings Additional findings: - Constitutional Appears: No Acute Distress, Cachectic - Head Exam Head Exam: ATRAUMATIC, NORMOCEPHALIC - Eye Exam Eye Exam: EOMI - ENT Exam ENT Exam: Mucous Membranes Dry Additional comments: Tongue noted to have ulcerations - Neck Exam Neck Exam: Full ROM. absent: Lymphadenopathy Additional comments: Trach/stoma in place with collar; No visible secretions noted; No signs of clinical infection of surrounding soft tissues - Respiratory Exam Respiratory Exam: NORMAL BREATHING PATTERN. absent: Decreased Breath Sounds, Accessory Muscle Use, Chest Wall Tenderness, Prolonged Expiratory Phase, Rales, Rhonchi, Wheezes, Respiratory Distress - Cardiovascular Exam Cardiovascular Exam: RRR, +S1, +S2 - GI/Abdominal Exam GI & Abdominal Exam: Soft, Normal Bowel Sounds. 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 Of note, CT soft tissue of neck showed progression of previously recorded laryngeal tumor from 2.5x3.1x6.4cm to now 5.0x6.8x10.3cm. PET/CT reviewed and showed metastatic adenopathy. Patient was also found to bullous emphysema with questionable right sided mucus plug. Radiation Oncology was consulted and patient is undergoing palliative RT. Patient was made DNR/DNI via POLST during this admission. Plan: -PET/CT reviewed and showed metastatic adenopathy -CT soft tissue H/N showed progression of tumor with measurements as stated above -Radiation Oncology consulted, all recommendations appreciated; Refusing RT -Pulmonology consulted, all recommendations appreciated; Continue Xopenex, Mucormyst, Duonebs and supplemental O2 as needed -Palliative consultation noted, all recommendations appreciated; Patient made DNR/DNI via POLST -ID consulted, all recommendations appreciated; Currently on Merrem -ENT consulted, all recommendations appreciated; Continue with trach care and management as ordered -Continue tube feeds as ordered; 7 cans of Jevity 1.2 per day -Continue intermittent self suctioning -Continue chest PT -Further recommendations as per Dr. Alexandra Disposition: Patient made hospice today. Should our services be needed in the future, please feel free to reconsult as necessary. Patient seen and case discussed with attending, Dr. Ibrahima Hatfield PGY2
[2018-07-15] MEDS: MEROPENEM 500 MG in NS 500 MG/50 ML BAG IVPB SCH (10:11)
[2018-07-15] MEDS: Pantoprazole 40 mg Susp UD PEG SCH (10:12)
[2018-07-15] MEDS: Phenytoin 100 mg/4 ml Oral Susp UD PO SCH (10:12)
[2018-07-15] MEDS: levETIRAcetam 500 mg/5ml UD cups PO SCH (10:12)
[2018-07-15 10:47] LABS: BILIRUBIN,DIRECT 4.5 mg/dL (0.0-0.4)
[2018-07-15] MEDS ORDERED: Acetaminophen 650mg/20.3ml solution UD PEG PRN (11:00)
[2018-07-15] MEDS ORDERED: DiphenhydrAMINE 12.5 mg/5 ml LIQ UD (5 ml) PEG PRN (11:00)
--- NOTE | 2018-07-15 11:41 | CP.PCM.PN ---
Subjective - Date & Time of Evaluation Date of Evaluation: 07/15/18 Time of Evaluation: 11:40 - Subjective Subjective: Mr Bermeo has a recurrent laryngeal cancer. He was getting palliative radiation, however the past few days, he has refused. He has increased bleeding from the oral cavity, possibly secondary to his disease. In speaking with him today, he does not want to continue RT. Objective - Vital Signs/Intake and Output Vital Signs (last 24 hours): Temp Pulse Resp BP Pulse Ox 98 F 94 H 19 116/62 100 07/15/18 08:24 07/15/18 08:24 07/15/18 08:24 07/15/18 08:24 07/15/18 08:24 - Medications Medications: Current Medications Acetaminophen (Tylenol 650mg/20.3ml Solution Ud) 650 mg PEG Q6H PRN PRN Reason: Temperature Last Admin: 07/10/18 21:24 Dose: 650 mg Acetaminophen (Tylenol 650mg/20.3ml Solution Ud) 650 mg PEG Q8 PRN PRN Reason: Other Stop: 07/15/18 14:01 Acetylcysteine (Acetylcysteine 20%) 4 ml IH TID NAVEEN Last Admin: 07/15/18 07:54 Dose: 4 ml Albuterol/Ipratropium (Duoneb 3 Mg/0.5 Mg (3 Ml) Ud) 3 ml IH TIDRESP PRN PRN Reason: Shortness of Breath Last Admin: 07/14/18 01:56 EST Dose: 3 ml Baclofen (Lioresal) 5 mg PO TID PRN PRN Reason: Hiccups Diphenhydramine HCl (Benadryl) 25 mg IVP ONCE PRN PRN Reason: Allergy symptoms Last Admin: 07/13/18 23:43 Dose: 25 mg Diphenhydramine HCl (Benadryl) 50 mg PEG Q8 PRN PRN Reason: Other Furosemide (Lasix) 20 mg IVP Q8 PRN PRN Reason: Other Guaifenesin/Dextromethorphan (Robitussin Dm) 10 ml PO Q4H PRN PRN Reason: Cough Hydrocortisone Sodium Succinate (Solu-Cortef) 50 mg IVP Q8 [facility] Stop: 07/15/18 14:01 Sodium Chloride (Sodium Chloride 0.9%) 1,000 mls @ 100 mls/hr IV .Q10H [facility] Last Admin: 07/14/18 14:42 Dose: 100 mls/hr Meropenem/Sodium Chloride (Merrem Iv 500 Mg/Ns 50 Ml) 500 mg in 50 mls @ 100 mls/hr IVPB Q12 [facility]; Protocol Last Admin: 07/15/18 10:11 Dose: 100 mls/hr Insulin Human Regular (Humulin R High) 0 units SC ACHS [facility]; Protocol Last Admin: 07/15/18 07:33 Dose: Not Given Levalbuterol HCl (Xopenex) 0.63 mg IH TIDRESP [facility] Last Admin: 07/15/18 07:53 Dose: 0.63 mg Levetiracetam (Keppra) 500 mg PO BID [facility] Last Admin: 07/15/18 10:12 Dose: 500 mg Lorazepam (Ativan) 1 mg IVP Q6H PRN; Protocol PRN Reason: Restlessness Last Admin: 07/14/18 23:45 Dose: 1 mg Metoclopramide HCl (Reglan) 5 mg PO DAILY PRN PRN Reason: Constipation Morphine Sulfate (Morphine) 2 mg IVP Q4H PRN PRN Reason: Pain, moderate (4-7) Last Admin: 07/15/18 02:28 Dose: 2 mg Pantoprazole Sodium (Protonix Susp) 40 mg PEG DAILY [facility] Last Admin: 07/15/18 10:12 Dose: 40 mg Phenytoin (Dilantin) 100 mg PO TID [facility] Last Admin: 07/15/18 10:12 Dose: 100 mg Saliva Substitute (Saliva Substitute) 0 ml PO QID PRN PRN Reason: Dry mouth Last Admin: 07/13/18 05:32 Dose: 1 ml - Labs Labs: 07/15/18 06:00 07/15/18 06:00 PT 15.2 SECONDS (9.4-12.5) H 07/14/18 12:50 INR 1.31 07/14/18 12:50
--- NOTE | 2018-07-15 12:00 | CP.PCM.PN ---
Subjective - Date & Time of Evaluation Date of Evaluation: 07/15/18 Time of Evaluation: 11:00 - Subjective Subjective: Weak, oriented when spoken to. Objective - Vital Signs/Intake and Output Vital Signs (last 24 hours): Temp Pulse Resp BP Pulse Ox 98 F 94 H 19 116/62 100 07/15/18 08:24 07/15/18 08:24 07/15/18 08:24 07/15/18 08:24 07/15/18 08:24 - Medications Medications: Current Medications Acetaminophen (Tylenol 650mg/20.3ml Solution Ud) 650 mg PEG Q6H PRN PRN Reason: Temperature Last Admin: 07/10/18 21:24 Dose: 650 mg Acetaminophen (Tylenol 650mg/20.3ml Solution Ud) 650 mg PEG Q8 PRN PRN Reason: Other Stop: 07/15/18 14:01 Acetylcysteine (Acetylcysteine 20%) 4 ml IH TID NAVEEN Last Admin: 07/15/18 07:54 Dose: 4 ml Albuterol/Ipratropium (Duoneb 3 Mg/0.5 Mg (3 Ml) Ud) 3 ml IH TIDRESP PRN PRN Reason: Shortness of Breath Last Admin: 07/14/18 01:56 EST Dose: 3 ml Baclofen (Lioresal) 5 mg PO TID PRN PRN Reason: Hiccups Diphenhydramine HCl (Benadryl) 25 mg IVP ONCE PRN PRN Reason: Allergy symptoms Last Admin: 07/13/18 23:43 Dose: 25 mg Diphenhydramine HCl (Benadryl) 50 mg PEG Q8 PRN PRN Reason: Other Furosemide (Lasix) 20 mg IVP Q8 PRN PRN Reason: Other Guaifenesin/Dextromethorphan (Robitussin Dm) 10 ml PO Q4H PRN PRN Reason: Cough Hydrocortisone Sodium Succinate (Solu-Cortef) 50 mg IVP Q8 [facility] Stop: 07/15/18 14:01 Sodium Chloride (Sodium Chloride 0.9%) 1,000 mls @ 100 mls/hr IV .Q10H [facility] Last Admin: 07/14/18 14:42 Dose: 100 mls/hr Meropenem/Sodium Chloride (Merrem Iv 500 Mg/Ns 50 Ml) 500 mg in 50 mls @ 100 mls/hr IVPB Q12 [facility]; Protocol Last Admin: 07/15/18 10:11 Dose: 100 mls/hr Insulin Human Regular (Humulin R High) 0 units SC ACHS [facility]; Protocol Last Admin: 07/15/18 07:33 Dose: Not Given Levalbuterol HCl (Xopenex) 0.63 mg IH TIDRESP [facility] Last Admin: 07/15/18 07:53 Dose: 0.63 mg Levetiracetam (Keppra) 500 mg PO BID [facility] Last Admin: 07/15/18 10:12 Dose: 500 mg Lorazepam (Ativan) 1 mg IVP Q6H [facility]; Protocol PRN Reason: Restlessness Last Admin: 07/14/18 23:45 Dose: 1 mg Metoclopramide HCl (Reglan) 5 mg PO DAILY PRN PRN Reason: Constipation Morphine Sulfate (Morphine) 2 mg IVP Q4H PRN PRN Reason: Pain, moderate (4-7) Last Admin: 07/15/18 02:28 Dose: 2 mg Pantoprazole Sodium (Protonix Susp) 40 mg PEG DAILY [facility] Last Admin: 07/15/18 10:12 Dose: 40 mg Phenytoin (Dilantin) 100 mg PO TID [facility] Last Admin: 07/15/18 10:12 Dose: 100 mg Saliva Substitute (Saliva Substitute) 0 ml PO QID PRN PRN Reason: Dry mouth Last Admin: 07/13/18 05:32 Dose: 1 ml - Labs Labs: 07/15/18 06:00 07/15/18 06:00 PT 15.2 SECONDS (9.4-12.5) H 07/14/18 12:50 INR 1.31 07/14/18 12:50 - Constitutional Appears: Cachectic, Chronically Ill - Eye Exam Eye Exam: Normal appearance - ENT Exam ENT Exam: Mucous Membranes Moist Additional comments: tongue swollen, oozing blood tinged secretions form mouth - Respiratory Exam Respiratory Exam: Decreased Breath Sounds, Rhonchi Additional comments: trach patent, copious secretions - Cardiovascular Exam Cardiovascular Exam: +S1 - GI/Abdominal Exam GI & Abdominal Exam: Soft, Hypoactive Bowel Sounds - Extremities Exam Extremities Exam: Pedal Edema - Skin Skin Exam: Dry, Pallor Assessment and Plan - Assessment and Plan (Free Text) Assessment: 73 year old male with history of advanced laryngeal cancer who is admitted with anemia, sepsis, worsening tumor burden, was receiving palliative XRT but has been refusing treatment. He is bleeding from mouth. The patient is alert, very weak. He is refusing radiation treatment. Explained that his condition was worsening. Offered options to continue aggressive care, transfusion, etc. or for hospice care. I explained that this was end of life care and that focus would be on keeping him comfortable> Paiet is agreeing to hospice comfort care. SYNTHETIC CLOTH BINDING CUTTER, Jony Hogue present and witnessed that patient understood and is in agreement with hospice care. Berkley GIRALDO and I spoke with patient a second time about option for hospice care The patient nodded in agreement for hospice care. Ms Roa to contact patient's and daughter regarding his decision to transition to hospice care. Both and daughter are in agreement with hospices plan of care. [place] media liaison officer met with apit and family, consent signed by patient. Will transition to [facility] hospice care. Time spent with patient and family in goals of care and end of life counseling, 60 minutes Plan: Goals of care Hospice evaluation Discharge and readmit to [facility] hospice care
[2018-07-15] MEDS ORDERED: Racepinephrine 2.25% Inhal Soln 0.5 ML UD ONE (13:38)
[2018-07-15] MEDS ORDERED: Racepinephrine 2.25% Inhal Soln 0.5 ML UD IH PRN (13:55)
--- NOTE | 2018-07-15 16:03 | CP.PCM.DIS ---
Provider - Provider Date of Admission: 07/02/18 01:17 Attending physician: Lucio Edge MD Consults: ID: Shaun H/O: Ibrahima ENT: Willie Pulm: Irwin Palliative: Paramonte Rad/onc: Ashlyn Time Spent in preparation of Discharge (in minutes): 35 Hospital Course - Lab Results Lab Results: Micro Results 07/08/18 00:45 Blood-Venous Blood Culture - Final NO GROWTH AFTER 5 DAYS 07/08/18 00:45 Blood-Venous Gram Stain - Final TEST NOT PERFORMED 07/08/18 00:15 Blood-Venous Blood Culture - Final NO GROWTH AFTER 5 DAYS 07/08/18 00:15 Blood-Venous Gram Stain - Final TEST NOT PERFORMED 07/08/18 01:45 Urine,Clean Catch Urine Culture - Final No Growth (<1,000 CFU/ML) 07/07/18 00:00 Urine,Clean Catch Urine Culture - Final No Growth (<1,000 CFU/ML) 07/01/18 22:00 Blood Blood Culture - Final NO GROWTH AFTER 5 DAYS 07/01/18 22:00 Blood Gram Stain - Final TEST NOT PERFORMED 07/01/18 21:02 Blood Blood Culture - Final NO GROWTH AFTER 5 DAYS 07/01/18 21:02 Blood Gram Stain - Final TEST NOT PERFORMED Most Recent Lab Values WBC 22.4 10^3/uL (4.5-11.0) H 07/15/18 06:00 RBC 2.36 10^6/uL (3.5-6.1) L 07/15/18 06:00 Hgb 7.1 g/dL (14.0-18.0) L D 07/15/18 06:00 Hct 21.5 % (42.0-52.0) L 07/15/18 06:00 MCV 91.1 fl (80.0-105.0) 07/15/18 06:00 MCH 30.1 pg (25.0-35.0) 07/15/18 06:00 MCHC 33.0 g/dl (31.0-37.0) 07/15/18 06:00 RDW 16.5 % (11.5-14.5) H 07/15/18 06:00 Plt Count 424 10^3/uL (120.0-450.0) 07/15/18 06:00 MPV 11.2 fl (7.0-11.0) H 07/15/18 06:00 Gran % 88.1 % (50.0-68.0) H 07/15/18 06:00 Lymph % (Auto) 5.6 % (22.0-35.0) L 07/15/18 06:00 [place] % (Auto) 6.1 % (1.0-6.0) H 07/15/18 06:00 Eos % (Auto) 0.2 % (1.5-5.0) L 07/15/18 06:00 Baso % (Auto) 0.0 % (0.0-3.0) 07/15/18 06:00 Gran # 19.77 (1.4-6.5) H 07/15/18 06:00 Lymph # (Auto) 1.3 (1.2-3.4) 07/15/18 06:00 [place] # (Auto) 1.4 (0.1-0.6) H 07/15/18 06:00 Eos # (Auto) 0.0 (0.0-0.7) 07/15/18 06:00 Baso # (Auto) 0.01 K/mm3 (0.0-2.0) 07/15/18 06:00 Neutrophils % (Manual) 93 % (50.0-70.0) H 07/10/18 09:35 Lymphocytes % (Manual) 2 % (22.0-35.0) L 07/10/18 09:35 Monocytes % (Manual) 4 % (1.0-6.0) 07/10/18 09:35 Eosinophils % (Manual) 1 % (0.0-3.0) 07/10/18 09:35 Platelet Evaluation Normal (NORMAL) 07/10/18 09:35 Haptoglobin 140.5 mg/dL (30.0-200.0) 07/15/18 08:00 PT 15.2 SECONDS (9.4-12.5) H 07/14/18 12:50 INR 1.31 07/14/18 12:50 pCO2 42 mm/Hg (35-45) 07/04/18 09:58 pO2 103.0 mm/Hg (80-100) H 07/04/18 09:58 HCO3 29.2 mmol/L (21-28) H 07/04/18 09:58 ABG pH 7.45 (7.35-7.45) 07/04/18 09:58 ABG Total CO2 30.5 mmol.L (22-28) H 07/04/18 09:58 ABG O2 Saturation 100.3 % (95-98) H 07/04/18 09:58 ABG O2 Content 11.8 ML/dl (15-23) L 07/04/18 09:58 ABG Base Excess 4.8 mmol/L (-2.0-3.0) H 07/04/18 09:58 ABG Hemoglobin 8.5 g/dL (11.7-17.4) L 07/04/18 09:58 ABG Carboxyhemoglobin 2.6 % (0.5-1.5) H 07/04/18 09:58 POC ABG HHb (Measured) -0.3 % (0-5) L 07/04/18 09:58 ABG Methemoglobin 1.0 % (0.0-3.0) 07/04/18 09:58 ABG O2 Capacity 11.8 mL/dl (16-24) L 07/04/18 09:58 Hgb O2 Saturation 96.8 % (95.0-98.0) 07/04/18 09:58 FiO2 30.0 % 07/04/18 09:58 Sodium 140 mmol/L (132-148) 07/15/18 06:00 Potassium 4.1 mmol/L (3.6-5.0) 07/15/18 06:00 Chloride 109 mmol/L (98-107) H 07/15/18 06:00 Carbon Dioxide 27 mmol/L (21-33) 07/15/18 06:00 Anion Gap 8 (10-20) L 07/15/18 06:00 BUN 26 mg/dL (7-21) H 07/15/18 06:00 Creatinine 0.9 mg/dl (0.8-1.5) 07/15/18 06:00 Est GFR ( Amer) > 60 07/15/18 06:00 Est GFR (Non-Af Amer) > 60 07/15/18 06:00 POC Glucose (mg/dL) 126 mg/dL (65-110) H 07/15/18 07:05 Random Glucose 123 mg/dL (70-110) H 07/15/18 06:00 Hemoglobin A1c 6.5 % (4.2-6.5) 07/10/18 11:38 Calcium 9.3 mg/dL (8.4-10.5) 07/15/18 06:00 Phosphorus 3.9 mg/dL (2.5-4.5) 07/13/18 05:15 Magnesium 2.1 mg/dL (1.7-2.2) 07/13/18 05:15 Iron 26 ug/dL (45-180) L 07/08/18 05:45 TIBC 165 ug/dL (261-462) L 07/08/18 05:45 % Saturation 16 % (20-55) L 07/08/18 05:45 Transferrin 94.40 mg/dL (206-381) L 07/08/18 07:00 Total Bilirubin 5.1 mg/dL (0.2-1.3) H 07/15/18 08:00 Direct Bilirubin 4.5 mg/dL (0.0-0.4) H 07/15/18 08:00 AST 60 U/L (17-59) H D 07/15/18 06:00 ALT 36 U/L (7-56) 07/15/18 06:00 Alkaline Phosphatase 94 U/L (38-126) 07/15/18 06:00 Lactate Dehydrogenase 574 U/L (333-699) 07/15/18 08:00 Troponin I 0.02 ng/mL 07/02/18 00:30 Total Protein 5.2 g/dL (5.8-8.3) L 07/15/18 06:00 Albumin 1.9 g/dL (3.0-4.8) L 07/15/18 06:00 Globulin 3.3 gm/dL 07/15/18 06:00 Albumin/Globulin Ratio 0.6 (1.1-1.8) L 07/15/18 06:00 Vitamin B12 757 pg/mL (239-931) 07/08/18 05:45 Procalcitonin 0.18 NG/ML (0.19-0.49) L 07/08/18 00:15 Urine Color Yellow (YELLOW) 07/07/18 00:05 Urine Appearance Clear (CLEAR) 07/07/18 00:05 Urine pH 6.0 (4.7-8.0) 07/07/18 00:05 Ur Specific [place] 1.010 (1.005-1.035) 07/07/18 00:05 Urine Protein Negative mg/dL (<30 mg/dL) 07/07/18 00:05 Urine Glucose (UA) 250 mg/dL (NEGATIVE) H 07/07/18 00:05 Urine Ketones Negative mg/dL (NEGATIVE) 07/07/18 00:05 Urine Blood Negative (NEGATIVE) 07/07/18 00:05 Urine Nitrate Negative (NEGATIVE) 07/07/18 00:05 Urine Bilirubin Negative (NEGATIVE) 07/07/18 00:05 Urine Urobilinogen 0.2 E.U./dL (<1 E.U./dL) 07/07/18 00:05 Ur Leukocyte Esterase [place]/uL (NEGATIVE) H 07/07/18 00:05 Urine RBC 2 - 5 /hpf (0-2) 07/07/18 00:05 Urine WBC 15 - 20 /hpf (0-6) 07/07/18 00:05 Ur Epithelial Cells 0 - 2 /hpf (0-5) 07/07/18 00:05 Calcium Oxalate Crystal Trace /hpf 07/07/18 00:05 Urine Bacteria Mod (NEG) 07/07/18 00:05 Urine Other Uyeast 07/07/18 00:05 Vancomycin Trough 35.0 ug/mL (5.0-10.0) H* 07/08/18 05:45 Random Vancomycin 11.5 ug/mL (20-40) L 07/10/18 06:00 Free Phenytoin 0.5 mg/L (1.0-2.0) L 07/02/18 00:30 Levetiracetam 13.0 mcg/mL 07/02/18 00:30 Blood Type A POSITIVE 07/14/18 12:50 Antibody Screen Negative 07/14/18 12:50 SARKIS, Poly Interpret Negative (NEGATIVE) 07/08/18 00:15 Crossmatch See Detail 07/14/18 12:50 BBK History Checked Patient has bt 07/14/18 12:50 - Hospital Course Hospital Course: On presentation: 73M w/ a complex onocologic history; patient was 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 Subsequently in 2016 patient was found to have recurrence of throat CA. He presented most recently in 05/2018 w/ large soft tissue mass in oropharyngeal region; during this visit patient received PEG tube placement. He was to follow up with heme/onc Dr. Cleveland however reported he was unable to make appt due to poor transportation. Patient reports he currently not undergoing radiation/chemotherapy at this time. Remainder of PMH is significant for COPD, Seizure, and arthritis. He [place] [facility] [place] w/ complaints of SOB, Hemoptysis, worsening secretions over the past month. Patient reports hemoptysis as light pink tinged mucopurlent sputum does not report overtly bloody or clotted sputum. He says his SOB feels as if he is not getting enough air through his tracheostomy. Patient reported he sees ENT Dr. Tapia for trach management. Upon ROS: Admits to chronic constipation; Denies any Fevers, Chills, Chest Pain, Abd pain, N/V/D, Urinary Discomfort, Numbness/tingling headache dizziness. Remainder 12 system ROS is negative. 07/02: V/Q low probability for PE. started Mucinex, oral hygiene. Palliative consult. hypercalcemic, started IVF @ 125, lasix 40 IV. 07/03: Rapid response called-patient having trouble breathing. Improved after suctioning. made him remote tele. 07/04: Still producing pink tinged sputum; Vancomycin trough elevated 26.1. No cetuximab. radiation today to sym. 07/05: complaining of dysuria-ordered U/A 07/06: complaining of persistent hiccups although not witnessed family insistent, baclofen given 07/07: New fever 100.4. Wbc 23. Pending UCx. Micro at [place]: just got specimen today. 07/08: New fever 102. On vancomycin 07/09: No rehab accepting. need palliative chemo. Call a family meeting, f/u restart vanc, continue merem 07/10: got transfusion yesterday. Got radiation. Increase ISSS coverage 07/11: Pt refuses radiation today. Family meeting, no D/C planning as no accepting rehab. Family will hopefully start medicare paper work, once thats done we can find a place for him to go. Go stop vanco. Procacl 0.18 07/12: Refuse radiation 07/15: Made hospice. Hb7 but will not proceed with transfusion at this time. CT neck/chest: bullous emphysema. Significant size of right lower pharyngeal soft tissue mass with occlusion of the airway. Overall extent and size of the mass has increased. CXR: COPD changes reiterated with resolution of prior mid and perihilar left- sided infiltrate now evident. No acute cardiovascular changes. Lung Scan: Low probability ventilation perfusion scan for PE CXR (07/03): no active disease EKG (07/03): HR 99. sinus rhythm with premature atrial complexes. LVH by voltage BCx: neg x 4d UCx (07/06): no growth PET: metastatic adenopathy CXR (07/08): no active disease CXR (07/11): right-sided infiltrate Further medical history per records. Discharge Exam - Head Exam Head Exam: ATRAUMATIC, NORMOCEPHALIC - Eye Exam Eye Exam: EOMI Pupil Exam: PERRL - ENT Exam Additional comments: dried blood visible on tongue and oropharnx, no clear source identified - Neck Exam Additional comments: tracheostomy present - Respiratory Exam Respiratory Exam: Decreased Breath Sounds. absent: Accessory Muscle Use, Respiratory Distress - Cardiovascular Exam Cardiovascular Exam: REGULAR RHYTHM, +S1, +S2 - GI/Abdominal Exam GI & Abdominal Exam: Normal Bowel Sounds. absent: Firm, Guarding Additional comments: PEG tube in place - Extremities Exam Extremities exam: normal inspection, pedal pulses present - Neurological Exam Neurological exam: Alert - Skin Skin Exam: Normal Color, Warm Discharge Plan - Follow Up Plan Condition: STABLE Disposition: HOSPICE - MEDICAL FACILITY Instructions: Palliative Care Additional Instructions: Patient discharged to [facility].
== END 2018-07-15 13:27 | disposition hospice, inpatient (51) | DRG 147 ==
LOC: ED 18:21 → ERH 07-02 01:17 → 3RNO 07-02 17:50 → 3RSO 07-10 18:48
PROVIDERS: ADMIT Hospitalist; ATTEND Internal Medicine
PROC: 0B21XFZ Change Tracheostomy Device in Trachea, External Approach (ICD-10-PCS; 2018-07-03)
PROC: D90B1ZZ Beam Radiation of Larynx using Photons 1 - 10 MeV (ICD-10-PCS; principal; 2018-07-08)
PROC: 30233N1 Transfusion of Nonautologous Red Blood Cells into Peripheral Vein, Percutaneous Approach (ICD-10-PCS; 2018-07-09)
DX: C10.9 Malignant neoplasm of oropharynx, unspecified (principal); C77.9 Secondary and unspecified malignant neoplasm of lymph node, unspecified; R64 Cachexia; R04.2 Hemoptysis; N39.0 Urinary tract infection, site not specified; J95.01 Hemorrhage from tracheostomy stoma; C32.9 Malignant neoplasm of larynx, unspecified; I10 Essential (primary) hypertension; K22.0 Achalasia of cardia; T17.990A Other foreign object in respiratory tract, part unspecified in causing asphyxiation, initial encounter; G40.909 Epilepsy, unspecified, not intractable, without status epilepticus; M19.90 Unspecified osteoarthritis, unspecified site; R06.03 Acute respiratory distress; R49.1 Aphonia; D63.8 Anemia in other chronic diseases classified elsewhere; E83.52 Hypercalcemia; J43.9 Emphysema, unspecified; E87.6 Hypokalemia; D72.829 Elevated white blood cell count, unspecified; K12.30 Oral mucositis (ulcerative), unspecified; R06.6 Hiccough; R73.9 Hyperglycemia, unspecified; Z51.5 Encounter for palliative care; Z66 Do not resuscitate; Z68.24 Body mass index [BMI] 24.0-24.9, adult; Z87.891 Personal history of nicotine dependence; Z93.1 Gastrostomy status; Z90.02 Acquired absence of larynx; Z93.0 Tracheostomy status

== ENCOUNTER 2018-07-15 13:27 | Inpatient (IN) | payer OTHER ==
[2018-07-15] MEDS ORDERED: Racepinephrine 2.25% Inhal Soln 0.5 ML UD IH PRN (14:21)
[2018-07-15] MEDS ORDERED: DiphenhydrAMINE 50 mg/ml Inj IVP PRN (14:23)
[2018-07-15] MEDS: Albuterol-Ipratrop 3 mg / 0.5 (3 ml) UD IH SCH ×3 (16:04→23:50)
--- NOTE | 2018-07-15 16:04 | CP.PCM.HP ---
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 Subsequently in 2016 patient was found to have recurrence of throat CA. He presented most recently in 05/2018 w/ large soft tissue mass in oropharyngeal region; during this visit patient received PEG tube placement. Patient reports he currently does not want radiation/chemotherapy at this time. He presented to [facility] 07/02 with complaints of SOB, hemoptysis as well as worsening bloody secretions over the past month. Patient reports hemoptysis as light pink tinged mucopurlent sputum and denies overtly bloody or clotted sputum. He says his SOB feels as if he is not getting enough air through his tracheostomy. Patient reported he sees ENT Dr. Tapia for trach management. Admits to chronic constipation; Denies any Fevers, Chills, Chest Pain, Abd pain, N/V/D, Urinary Discomfort, Numbness/tingling headache dizziness. 12 point ROS noted here, otherwise unremarkable. PMD: Reiselina PMH: As above PSH: Tracheostomy 2012, PEG 05/2018 ALL: NKDA Social Hx: Extensive smoking Hx, Denies EtOH, Denies illicit Heme/Onc: [place]? Home Rx: Phenytoin 300 QPM, Keppra 500 BID, ASA 81 QD, Duoneb NAVEEN TID, Reglan 5mg PRN Present on Admission - Present on Admission Any Indicators Present on Admission: No Past Patient History - Infectious Disease Hx of Infectious Diseases: None - Past Medical History & Family History Past Medical History?: Yes - Past Social History Smoking Status: Former Smoker - CARDIAC Hx Hypertension: Yes - PULMONARY Hx Chronic Obstructive Pulmonary Disease (COPD): Yes Other/Comment: Laryngeal CA s/p laryngectomy and tracheostomy - NEUROLOGICAL Hx Neurological Disorder: Yes Hx Seizures: Yes (Well controlled with medication) - HEENT Hx HEENT Problems: Yes Other/Comment: blurry vision mild - RENAL Hx Chronic Kidney Disease: No - ENDOCRINE/METABOLIC Hx Diabetes Mellitus Type 2: Yes (DIET CONTROLLED) - HEMATOLOGICAL/ONCOLOGICAL Hx Cancer: Yes (Throat cancer) - INTEGUMENTARY Hx Dermatological Problems: No Other/Comment: Dry skin scattered throughout body - MUSCULOSKELETAL/RHEUMATOLOGICAL Hx Falls: Yes - GASTROINTESTINAL Hx Gastrointestinal Disorders: Yes (G tube) - GENITOURINARY/GYNECOLOGICAL Hx Genitourinary Disorders: No - PSYCHIATRIC Hx Psychophysiologic Disorder: No Hx Substance Use: No - SURGICAL HISTORY Other/Comment: Permanent tracheostomy, Neck surgery to remove Ca - ANESTHESIA Hx Anesthesia Reactions: No Hx Malignant Hyperthermia: No Meds Allergies/Adverse Reactions: Allergies Allergy/AdvReac Type Severity Reaction Status Date / Time No Known Allergies Allergy Verified 07/02/18 21:04 Physical Exam - Constitutional Appears: Cachectic, Chronically Ill - Head Exam Head Exam: ATRAUMATIC, NORMAL INSPECTION - Eye Exam Eye Exam: EOMI Pupil Exam: PERRL - ENT Exam Additional comments: dried blood noted on and around oropharynx, suctioning tube notes bright red blood - Neck Exam Additional comments: trach tube noted in place - Respiratory Exam Respiratory Exam: Decreased Breath Sounds, Clear to Auscultation Bilateral. absent: Accessory Muscle Use - Cardiovascular Exam Cardiovascular Exam: REGULAR RHYTHM, +S1, +S2 - GI/Abdominal Exam GI & Abdominal Exam: Normal Bowel Sounds. absent: Firm, Guarding Additional comments: PEG tube in place - Extremities Exam Extremities exam: Positive for: normal inspection. Negative for: calf tenderness - Back Exam Back exam: NORMAL INSPECTION - Neurological Exam Neurological exam: Alert - Skin Skin Exam: Normal Color, Warm Results - Vital Signs Recent Vital Signs: Last Vital Signs Temp Pulse Resp 14 07/15/18 14:13 BP Pulse Ox Assessment & Plan - Assessment and Plan (Free Text) Assessment: 73 yo M with PMH of oropharyngeal CA (s/p laryngectomy and tracheostomy), COPD, seizure disorder, and arthritis admitted for worsening SOB, secretions, and hemoptysis. Patient agreed to be in hospice care at this time. Patient is DNI/DNR. Plan: History of oropharyngeal SCC -morphine for pain -will focus on comfort care at this time -s/p trach collar -tylenol, benadryl, ativan, scopolamine -tube feeding, s/p PEG tube Hemoptysis -Gross blood suctioning from oropharynx. H/H is downtrending today, will not transfuse at this time History of COPD -continue duonemarques History of seizure disorder - Continue keppra <Radha [place] R - Last Filed: 07/17/18 17:51> Results - Vital Signs Recent Vital Signs: Last Vital Signs Temp 97.5 F L 07/17/18 16:55 Pulse 83 07/17/18 16:55 Resp 20 07/17/18 16:55 BP 113/60 07/17/18 16:55 Pulse Ox 100 07/17/18 16:55 Attending/Attestation - Attestation I have personally seen and examined this patient.: Yes I have fully participated in the care of the patient.: Yes I have reviewed all pertinent clinical information: Yes Notes (Text): Patient seen and examined by me with resident at 10:45AM with resident 07/15/18. Case including HPI, physical exam, and assessment and plan discussed with resident. Agree with above with following additions/corrections. 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 Patient was initial ly admitted on 07/02/2018 with shortness of breath, hemoptysis, and worsening secretions. Patient was seen by ENT and tracheostomy was changed on 07/03/2018. Increased secretions may have been secondary to tumor versus tracheostomy closure. Secretions improved. Patient was placed on nebulizer treatments and chest PT. Patient was able to do his own suctioning of secretions. Patient was found to be febrile. All cultures were negative. ID was following. Patient was placed on Merrem. Patient then developed active hemoptysis and bleeding from the throat on 07/14/2018. Patient's family was notified. The following day, patient was anemic. The transfusion was discussed. Patient was seen by palliative care. Patient decided he wanted inpatient hospice care. Patient was placed on hospice care. Patient states he feels okay. Complains of some bilateral knee pain. Denies any shortness of breath or chest pain. Denies any pain on his tongue. Patient is denying any nausea, vomiting, or abdominal pain. No dysuria. Patient is afebrile. Physical exam: General: Awake and alert lying in bed in no acute distress, cachectic appearing HEENT: Normocephalic atraumatic. Pupils equal reactive. No scleral icterus. Oropharynx is pink. Positive dry mucous membranes. Scabs noted on patient's tongue. Blood noted on the tongue and nares. Positive trach collar in place, no signs of infection. Cardiovascular: Normal S1, S2. No murmurs, rubs, or gallops appreciated Pulmonary: Normal respiratory effort. Decreased breath sounds. Coarse breath sounds. No rales or wheezing appreciated. Gastrointestinal: Soft, nondistended. Nontender. Positive bowel sounds all 4 quadrants, no guarding. Peg tube in place with no signs of infection. Musculoskeletal: Moves all extremities, no calf tenderness. No edema appreciated Central nervous system: AAOx3 Dermatologic: Skin warm and dry. 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 1. Oral pharyngeal cancer. Worsening of tumor. Active hemoptysis. Patient placed on inpatient hospice care. Continue with morphine for pain. Placed on Ativan as needed. Placed scoplamine patch every 3 days. Palliative care following. Continue comfort measures. 2. History fo seizures. On IV keppra. 3. Anemia. Secondary to active bleeding. No blood transfusions as patient requested hospice care and no transfusion 4. COPD. Placed on nebulizer treatments 5. Patient is DNR/DNI, Hospice. Case was discussed in detail with the patient as well as palliative care regarding current diagnosis and treatment plan. All questions answered.
[2018-07-15] MEDS: Morphine PCA 1 mg/ml (30ml) 30 ML IV PRN (16:09)
[2018-07-15] MEDS: levETIRAcetam 500mg IVPB 500 MG/100 ML BAG IVPB SCH (21:31)
[2018-07-16] MEDS: Albuterol-Ipratrop 3 mg / 0.5 (3 ml) UD IH SCH ×5 (04:52→19:51)
[2018-07-16] MEDS: levETIRAcetam 500mg IVPB 500 MG/100 ML BAG IVPB SCH ×2 (09:07→22:25)
--- NOTE | 2018-07-16 13:17 | CP.PCM.PN ---
Subjective - Date & Time of Evaluation Date of Evaluation: 07/16/18 Time of Evaluation: 11:00 - Subjective Subjective: Lethargic, offers no complaints Objective - Vital Signs/Intake and Output Vital Signs (last 24 hours): Temp Pulse Resp BP Pulse Ox 98.4 F 92 H 18 121/55 L 97 07/15/18 16:12 07/15/18 16:12 07/15/18 16:12 07/15/18 16:12 07/15/18 16:12 - Medications Medications: Current Medications Acetaminophen (Tylenol 650 Mg Supp) 650 mg RC Q6H PRN PRN Reason: Fever >100.4 F Albuterol/Ipratropium (Duoneb 3 Mg/0.5 Mg (3 Ml) Ud) 3 ml IH [id number] [facility] Last Admin: 07/16/18 11:09 Dose: 3 ml Diphenhydramine HCl (Benadryl) 50 mg IVP Q6H PRN PRN Reason: Cough and congestion Morphine Sulfate (Morphine Geophysical Laboratory Chief 1 Mg/Ml) 30 mls @ 0.5 mls/hr IV PRN PRN; Protocol PRN Reason: 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 QUALITY CONTROL TECHNICIAN PER MD ORDER Last Admin: 07/15/18 16:09 Dose: 0.5 mg/hr, 0.5 mls/hr Levetiracetam (Keppra 500mg Ivpb) 500 mg in 100 mls @ 400 mls/hr IVPB Q12 [facility] Last Admin: 07/16/18 09:07 Dose: 400 mls/hr Lorazepam (Ativan) 0.5 mg IVP Q6H PRN; Protocol PRN Reason: Anxiety Last Admin: 07/16/18 08:38 Dose: 0.5 mg Racepinephrine (Racepinephrine 2.25% Inhl Soln) 0.5 ml IH [id number] PRN PRN Reason: for laryngeal bleeding Scopolamine (Transderm-Scop) 1 patch TD Q3D [facility] Last Admin: 07/15/18 14:49 Dose: 1 patch - Constitutional Appears: Cachectic, Chronically Ill - Head Exam Head Exam: NORMOCEPHALIC - Eye Exam Eye Exam: Normal appearance - ENT Exam ENT Exam: Mucous Membranes Dry Additional comments: trach secretsion suctioned PRN, oozing small amount of blood tinged secretions form mouth - Respiratory Exam Respiratory Exam: Decreased Breath Sounds - Cardiovascular Exam Cardiovascular Exam: REGULAR RHYTHM, +S1, +S2 - GI/Abdominal Exam GI & Abdominal Exam: Soft, Hypoactive Bowel Sounds Additional comments: g tube patent - Extremities Exam Extremities Exam: Normal Capillary Refill - Neurological Exam Additional comments: lethargy - Skin Skin Exam: Warm Assessment and Plan - Assessment and Plan (Free Text) Assessment: 73 year old male with history of metastatic laryngeal carcinoma, s/p tracheostomy who is admitted under [facility] services for pain and symptom management. The patient is lethargic, oozing blood tinged secretion from mouth. Copious respiratory secretions, requires frequent suctioning of tracheastomy. Poor absorption of PEG feeding, moderate amount of residual Plan: Seizure disorder: Keppra 500 mg twice daily Pain: Morphine 0.5mg IV continuos infusion PEG: Poor absorption, will decrease feeding to one can of Glucerna 1.2 twice daily Agitation restlessness: Ativan 0.5 mg IVP Laryngeal Bleeding: Racepinephrine 2.25% IH every 6 hours as needed [address] secretions: Scopolamine, Benadryl 50 mg IVP PRN, suction as needed. Fever: Tylenol 650 mg RC
--- NOTE | 2018-07-16 15:24 | CP.PCM.PN ---
<Dean Arrington - Last Filed: 07/16/18 15:16> Subjective - Date & Time of Evaluation Date of Evaluation: 07/16/18 Time of Evaluation: 15:16 - Subjective Subjective: Dean Arrington PGY1 Medicine Progress Note Patient seen and examined at bedside this morning. No acute events overnight. Patient is arousable and offers no new complaints at this time. Resting comfortably. Objective - Vital Signs/Intake and Output Vital Signs (last 24 hours): Temp Pulse Resp BP Pulse Ox 98.4 F 92 H 18 121/55 L 97 07/15/18 16:12 07/15/18 16:12 07/15/18 16:12 07/15/18 16:12 07/15/18 16:12 - Medications Medications: Current Medications Acetaminophen (Tylenol 650 Mg Supp) 650 mg RC Q6H PRN PRN Reason: Fever >100.4 F Albuterol/Ipratropium (Duoneb 3 Mg/0.5 Mg (3 Ml) Ud) 3 ml IH [id number] [facility] Last Admin: 07/16/18 11:09 Dose: 3 ml Diphenhydramine HCl (Benadryl) 50 mg IVP Q6H PRN PRN Reason: Cough and congestion Morphine Sulfate (Morphine Dehydrogenation Converter Helper 1 Mg/Ml) 30 mls @ 0.5 mls/hr IV PRN PRN; Protocol PRN Reason: FOURTH GRADE TEACHER PER MD ORDER Last Admin: 07/15/18 16:09 Dose: 0.5 mg/hr, 0.5 mls/hr Levetiracetam (Keppra 500mg Ivpb) 500 mg in 100 mls @ 400 mls/hr IVPB Q12 [facility] Last Admin: 07/16/18 09:07 Dose: 400 mls/hr Lorazepam (Ativan) 0.5 mg IVP Q6H PRN; Protocol PRN Reason: Anxiety Last Admin: 07/16/18 08:38 Dose: 0.5 mg Racepinephrine (Racepinephrine 2.25% Inhl Soln) 0.5 ml IH [id number] PRN PRN Reason: for laryngeal bleeding Scopolamine (Transderm-Scop) 1 patch TD Q3D [facility] Last Admin: 07/15/18 14:49 Dose: 1 patch - Constitutional Appears: No Acute Distress - Head Exam Head Exam: ATRAUMATIC, NORMAL INSPECTION - Eye Exam Eye Exam: EOMI Pupil Exam: PERRL - ENT Exam ENT Exam: Mucous Membranes Moist Additional comments: dried blood noted on oropharynx - Neck Exam Additional comments: trach collar present - Respiratory Exam Respiratory Exam: Decreased Breath Sounds. absent: Accessory Muscle Use, Respiratory Distress - Cardiovascular Exam Cardiovascular Exam: REGULAR RHYTHM, +S1, +S2 - GI/Abdominal Exam GI & Abdominal Exam: Normal Bowel Sounds. absent: Rigid, Soft Additional comments: PEG tube in place - Extremities Exam Extremities Exam: Normal Inspection. absent: Calf Tenderness - Neurological Exam Additional comments: arousable - Skin Skin Exam: Normal Color, Warm Assessment and Plan - Assessment and Plan (Free Text) Assessment: 73 yo M with PMH of oropharyngeal CA (s/p laryngectomy and tracheostomy), COPD, seizure disorder, and arthritis admitted for worsening SOB, secretions, and hemoptysis. Patient agreed to be in hospice care at this time. Patient is DNI/DNR. Plan: History of oropharyngeal SCC -continuing morphine for pain at this time -continuing to focus on patient care -s/p trach collar, draining dark red blood in suctioning tube -tylenol, benadryl, ativan, scopolamine -tube feeding, s/p PEG tube Hemoptysis -Gross blood suctioning from oropharynx. H/H is downtrending previously, will not transfuse at this time History of COPD -continue duonebs History of seizure disorder - continue keppra <Radha [place] R - Last Filed: 07/18/18 18:20> Objective - Vital Signs/Intake and Output Vital Signs (last 24 hours): Temp Pulse Resp BP Pulse Ox 97.8 F 83 21 117/51 L 98 07/18/18 17:29 07/18/18 17:29 07/18/18 17:29 07/18/18 17:29 07/18/18 17:29 Intake and Output: 07/18/18 07/18/18 06:59 18:59 Intake Total 60 Output Total 200 Balance -140 - Medications Medications: Current Medications Acetaminophen (Tylenol 650 Mg Supp) 650 mg RC Q6H PRN PRN Reason: Fever >100.4 F Albuterol/Ipratropium (Duoneb 3 Mg/0.5 Mg (3 Ml) Ud) 3 ml IH [id number] NAVEEN Last Admin: 07/18/18 16:56 Dose: 3 ml Diphenhydramine HCl (Benadryl) 50 mg IVP Q6H PRN PRN Reason: Cough and congestion Morphine Sulfate (Morphine Dehydrogenation Converter Helper 1 Mg/Ml) 30 mls @ 0.5 mls/hr IV PRN PRN; Protocol PRN 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: 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 GRADE TEACHER PER MD ORDER Last Admin: 07/18/18 03:32 Dose: 0.5 mg/hr, 0.5 mls/hr Levetiracetam (Keppra 500mg Ivpb) 500 mg in 100 mls @ 400 mls/hr IVPB Q12 [facility] Last Admin: 07/18/18 09:23 Dose: 400 mls/hr Lorazepam (Ativan) 0.5 mg IVP Q6H PRN; Protocol PRN Reason: Anxiety Last Admin: 07/16/18 16:10 Dose: 0.5 mg Racepinephrine (Racepinephrine 2.25% Inhl Soln) 0.5 ml IH [id number] PRN PRN Reason: for laryngeal bleeding Scopolamine (Transderm-Scop) 1 patch TD Q3D [facility] Last Admin: 07/18/18 15:38 Dose: 1 patch Attending/Attestation - Attestation I have personally seen and examined this patient.: Yes I have fully participated in the care of the patient.: Yes I have reviewed all pertinent clinical information, including history, physical exam and plan: Yes Notes (Text): Patient seen and examined by me with resident at 1:25PM with resident 07/16/18. Case including HPI, physical exam, and assessment and plan discussed with resident. Agree with above with following additions/corrections. 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 Patient states he feels okay. Patient's sister Cary at bedside. Patient still with some bilateral knee pain. No shortness of breath or chest pain. Denies eating of his tongue. No nausea, vomiting, or abdominal pain. No dysuria. Patient is afebrile. Physical exam: General: Awake and alert lying in bed in no acute distress, cachectic appearing HEENT: Normocephalic atraumatic. Pupils equal reactive. No scleral icterus. Oropharynx is pink. Positive dry mucous membranes. Improving noted on patient's tongue. Positive trach collar in place, no signs of infection. Cardiovascular: Normal S1, S2. No murmurs, rubs, or gallops appreciated Pulmonary: Normal respiratory effort. Decreased breath sounds. Coarse breath sounds. No rales or wheezing appreciated. Gastrointestinal: Soft, nondistended. Nontender. Positive bowel sounds all 4 quadrants, no guarding. Peg tube in place with no signs of infection. Musculoskeletal: Moves all extremities, no calf tenderness. No edema appreciated Central nervous system: AAOx3 Dermatologic: Skin warm and dry. 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 1. Oral pharyngeal cancer. Worsening of tumor. Active hemoptysis. Patient on i npatient hospice care. Continue with comfort measures. Continue with morphine drip. Continue Ativan as needed. Continue scoplamine patch every 3 days. Palliative care following, recommendations appreciated 2. History fo seizures. Continue IV keppra. 3. Anemia. Secondary to active bleeding. No blood transfusions as patient requested hospice care and no transfusion 4. COPD. Continue on nebulizer treatments 5. Patient is DNR/DNI, Hospice. Case was discussed in detail with the patient and patient's sister Cary. All questions answered.
[2018-07-17] MEDS: Albuterol-Ipratrop 3 mg / 0.5 (3 ml) UD IH SCH ×6 (00:21→20:30)
[2018-07-17] MEDS: levETIRAcetam 500mg IVPB 500 MG/100 ML BAG IVPB SCH ×2 (10:36→22:34)
--- NOTE | 2018-07-17 13:10 | CP.PCM.PN ---
Subjective - Date & Time of Evaluation Date of Evaluation: 07/17/18 Time of Evaluation: 11:00 - Subjective Subjective: Alert, oriented, Complains of discomfort back of neck Objective - Vital Signs/Intake and Output Vital Signs (last 24 hours): Temp Pulse Resp BP Pulse Ox 98.4 F 92 H 18 121/55 L 97 07/15/18 16:12 07/15/18 16:12 07/15/18 16:12 07/15/18 16:12 07/15/18 16:12 - Medications Medications: Current Medications Acetaminophen (Tylenol 650 Mg Supp) 650 mg RC Q6H PRN PRN Reason: Fever >100.4 F Albuterol/Ipratropium (Duoneb 3 Mg/0.5 Mg (3 Ml) Ud) 3 ml IH [id number] [facility] Last Admin: 07/17/18 11:07 Dose: 3 ml Diphenhydramine HCl (Benadryl) 50 mg IVP Q6H PRN PRN Reason: Cough and congestion Morphine Sulfate (Morphine Supervisor Beam Department 1 Mg/Ml) 30 mls @ 0.5 mls/hr IV PRN PRN; Protocol PRN Reason: DETAIL MAKER AND FITTER PER MD ORDER Last Admin: 07/15/18 16:09 Dose: 0.5 mg/hr, 0.5 mls/hr Levetiracetam (Keppra 500mg Ivpb) 500 mg in 100 mls @ 400 mls/hr IVPB Q12 [facility] Last Admin: 07/17/18 10:36 Dose: 400 mls/hr Lorazepam (Ativan) 0.5 mg IVP Q6H PRN; Protocol PRN Reason: Anxiety Last Admin: 07/16/18 16:10 Dose: 0.5 mg Racepinephrine (Racepinephrine 2.25% Inhl Soln) 0.5 ml IH [id number] PRN PRN Reason: for laryngeal bleeding Scopolamine (Transderm-Scop) 1 patch TD Q3D [facility] Last Admin: 07/15/18 14:49 Dose: 1 patch - Constitutional Appears: Chronically Ill - Head Exam Head Exam: NORMOCEPHALIC - Eye Exam Eye Exam: Normal appearance Pupil Exam: NORMAL ACCOMODATION - ENT Exam ENT Exam: Mucous Membranes Moist - Neck Exam Additional comments: trach patient, site clean and dry - Respiratory Exam Respiratory Exam: Decreased Breath Sounds, Rhonchi - Cardiovascular Exam Cardiovascular Exam: REGULAR RHYTHM, +S1 - GI/Abdominal Exam GI & Abdominal Exam: Soft, Diminished Bowel Sounds Additional comments: PEG insitu, no redness or swelling - Extremities Exam Extremities Exam: Normal Capillary Refill, Pedal Edema - Skin Skin Exam: Dry, Pallor, Warm Assessment and Plan - Assessment and Plan (Free Text) Assessment: 73 year old male with history of laryngeal cancer s/p chemo/radiation, s/p tracheastomy, anemia, laryngeal bleeding,seizure disorder who is admitted under [place] [id number] for pain and symptom management i Patient sisterCary at bedside.Discussed hospice services. Laryngeal bleeding stabilized Copious trach secretions with frequent suctioning required. Continues to have residual from PEG feedings, now once can Glucerna twice daily, PRN when needed. Denies pain. Explained to patient and sister that pait would likely need to transfer to a facility for ongoing hospice care. Sister understands and is willing to speak with Liz GIRALDO about hospice facility placement Time spent in goals of care discussion, with family, 20 minutes Plan: Goals of care Morphine 0.5 mg continuos infusion Ativan 0.5mg for agitation Racepinephrine 2.25% inhaler for laryngeal bleeding Duonebs, Scopolamine, Benadryl prn Suction trach needed Keppra 500mg bID Glucerna 1.2 two cans daily, 1 can prn
--- NOTE | 2018-07-17 15:55 | CP.PCM.PN ---
<Dean Arrington - Last Filed: 07/17/18 15:56> Subjective - Date & Time of Evaluation Date of Evaluation: 07/17/18 Time of Evaluation: 12:00 - Subjective Subjective: Dean Arrington PGY1 Medicine Progress Note Patient seen and examined at bedside this morning. No acute events overnight. Patient is alert and resting comfortably. Offers no complaints at this time. Objective - Vital Signs/Intake and Output Vital Signs (last 24 hours): Temp Pulse Resp BP Pulse Ox 98.4 F 92 H 18 121/55 L 97 07/15/18 16:12 07/15/18 16:12 07/15/18 16:12 07/15/18 16:12 07/15/18 16:12 - Medications Medications: Current Medications Acetaminophen (Tylenol 650 Mg Supp) 650 mg RC Q6H PRN PRN Reason: Fever >100.4 F Albuterol/Ipratropium (Duoneb 3 Mg/0.5 Mg (3 Ml) Ud) 3 ml IH [id number] [facility] Last Admin: 07/17/18 11:07 Dose: 3 ml Diphenhydramine HCl (Benadryl) 50 mg IVP Q6H PRN PRN Reason: Cough and congestion Morphine Sulfate (Morphine Mechanical Service Technician 1 Mg/Ml) 30 mls @ 0.5 mls/hr IV PRN PRN; Protocol PRN Reason: INSPECTOR AIR CARRIER PER MD ORDER Last Admin: 07/15/18 16:09 Dose: 0.5 mg/hr, 0.5 mls/hr Levetiracetam (Keppra 500mg Ivpb) 500 mg in 100 mls @ 400 mls/hr IVPB Q12 [facility] Last Admin: 07/17/18 10:36 Dose: 400 mls/hr Lorazepam (Ativan) 0.5 mg IVP Q6H PRN; Protocol PRN Reason: Anxiety Last Admin: 07/16/18 16:10 Dose: 0.5 mg Racepinephrine (Racepinephrine 2.25% Inhl Soln) 0.5 ml IH [id number] PRN PRN Reason: for laryngeal bleeding Scopolamine (Transderm-Scop) 1 patch TD Q3D [facility] Last Admin: 07/15/18 14:49 Dose: 1 patch - Constitutional Appears: No Acute Distress - Head Exam Head Exam: ATRAUMATIC, NORMAL INSPECTION - Eye Exam Eye Exam: EOMI Pupil Exam: PERRL - ENT Exam ENT Exam: Mucous Membranes Moist Additional comments: minimal dried blood appreciated in oropharynx - Neck Exam Additional comments: trach collar present, suctioning dark red fluid - Respiratory Exam Respiratory Exam: Decreased Breath Sounds. absent: Accessory Muscle Use, Respiratory Distress - Cardiovascular Exam Cardiovascular Exam: REGULAR RHYTHM, +S1, +S2 - GI/Abdominal Exam GI & Abdominal Exam: Normal Bowel Sounds. absent: Guarding, Rigid Additional comments: PEG tube in place - Extremities Exam Extremities Exam: Normal Inspection. absent: Calf Tenderness - Neurological Exam Neurological Exam: Alert, Awake - Skin Skin Exam: Normal Color, Warm Assessment and Plan - Assessment and Plan (Free Text) Assessment: 73 yo M with PMH of oropharyngeal CA (s/p laryngectomy and tracheostomy), COPD, seizure disorder, and arthritis admitted for worsening SOB, secretions, and hemoptysis. Patient agreed to be in hospice care at this time. Patient is DNI/DNR. Plan: History of oropharyngeal SCC -continuing to focus on patient care -receiving morphine drip for pain, 0.5mg continuous -ativan for agitation -s/p trach collar, draining dark red blood in suctioning tube -tylenol, benadryl, ativan, scopolamine -tube feeding, s/p PEG tube -may need transfer for outpatient hospice care Hemoptysis -Gross blood suctioning from oropharynx. H/H is downtrending previously, will not transfuse at this time -suction as needed History of COPD -continue karoline History of seizure disorder - [facility] Patient seen and examined with attending, Dr. Cleveland <Radha Cleveland R - Last Filed: 07/18/18 18:40> Objective - Vital Signs/Intake and Output Vital Signs (last 24 hours): Temp Pulse Resp BP Pulse Ox 97.8 F 83 21 117/51 L 98 07/18/18 17:29 07/18/18 17:29 07/18/18 17:29 07/18/18 17:29 07/18/18 17:29 Intake and Output: 07/18/18 07/18/18 06:59 18:59 Intake Total 60 Output Total 200 Balance -140 - Medications Medications: Current Medications Acetaminophen (Tylenol 650 Mg Supp) 650 mg RC Q6H PRN PRN Reason: Fever >100.4 F Albuterol/Ipratropium (Duoneb 3 Mg/0.5 Mg (3 Ml) Ud) 3 ml IH [id number] [facility] Last Admin: 07/18/18 16:56 Dose: 3 ml Diphenhydramine HCl (Benadryl) 50 mg IVP Q6H PRN PRN Reason: Cough and congestion Morphine Sulfate (Morphine Mechanical Service Technician 1 Mg/Ml) 30 mls @ 0.5 mls/hr IV PRN PRN; Protocol PRN Reason: INSPECTOR AIR CARRIER PER MD ORDER Last Admin: 07/18/18 03:32 Dose: 0.5 mg/hr, 0.5 mls/hr Levetiracetam (Keppra 500mg Ivpb) 500 mg in 100 mls @ 400 mls/hr IVPB Q12 [facility] Last Admin: 07/18/18 09:23 Dose: 400 mls/hr Lorazepam (Ativan) 0.5 mg IVP Q6H PRN; Protocol PRN Reason: Anxiety Last Admin: 07/16/18 16:10 Dose: 0.5 mg Racepinephrine (Racepinephrine 2.25% Inhl Soln) 0.5 ml IH [id number] PRN PRN Reason: for laryngeal bleeding Scopolamine (Transderm-Scop) 1 patch TD Q3D [facility] Last Admin: 07/18/18 15:38 Dose: 1 patch Attending/Attestation - Attestation I have personally seen and examined this patient.: Yes I have fully participated in the care of the patient.: Yes I have reviewed all pertinent clinical information, including history, physical exam and plan: Yes Notes (Text): Patient seen and examined by me with resident at 12:20PM with resident 07/17/18. Case including HPI, physical exam, and assessment and plan discussed with resident. Agree with above with following additions/corrections. 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 Patient is more sleepy today. Denies any pain. Patient is resting comfortably. Denies any shortness of breath. Physical exam: General: Lying in bed in no acute distress, cachectic appearing HEENT: Normocephalic atraumatic. Pupils equal reactive. No scleral icterus. Oropharynx is pink. Positive dry mucous membranes. Improved scabs noted on patient's tongue. Positive trach collar in place, no signs of infection. Cardiovascular: Normal S1, S2. No murmurs, rubs, or gallops appreciated Pulmonary: Normal respiratory effort. Decreased breath sounds. Coarse breath sounds. No rales or wheezing appreciated. Gastrointestinal: Soft, nondistended. Nontender. Positive bowel sounds all 4 quadrants, no guarding. Peg tube in place with no signs of infection. Musculoskeletal: Moves all extremities, no calf tenderness. No edema appreciated Central nervous system: AAOx3 Dermatologic: Skin warm and dry. 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 1. Oral pharyngeal cancer. Worsening of tumor seen on CT neck. Developed active hemoptysis. Patient on inpatient hospice care. Continue with comfort measures. Continue with morphine drip. Continue Ativan as needed. Continue scoplamine pat ch every 3 days. Palliative care following, recommendations appreciated 2. History fo seizures. Continue IV keppra. 3. Anemia. Secondary to active bleeding. No blood transfusions as patient requested hospice care and no transfusion 4. COPD. Continue on nebulizer treatments 5. Patient is DNR/DNI, Hospice. Case was discussed in detail with the patient and patient's sister Cary. All questions answered.
[2018-07-18] MEDS: Morphine PCA 1 mg/ml (30ml) 30 ML IV PRN (03:32)
[2018-07-18] MEDS: Albuterol-Ipratrop 3 mg / 0.5 (3 ml) UD IH SCH ×4 (08:21→19:11)
[2018-07-18] MEDS: levETIRAcetam 500mg IVPB 500 MG/100 ML BAG IVPB SCH ×2 (09:23→21:18)
--- NOTE | 2018-07-18 17:12 | CP.PCM.PN ---
<Dena Arrington - Last Filed: 07/18/18 17:08> Subjective - Date & Time of Evaluation Date of Evaluation: 07/18/18 Time of Evaluation: 10:30 - Subjective Subjective: Dean Arrington PGY1 Medicine Progress Note Patient seen and examined at bedside this morning. No acute events overnight. Offers no complaints at this time. Patient is alert and resting comfortably. Objective - Vital Signs/Intake and Output Vital Signs (last 24 hours): Temp Pulse Resp BP Pulse Ox 97.5 F L 83 20 113/60 100 07/17/18 16:55 07/17/18 16:55 07/17/18 16:55 07/17/18 16:55 07/17/18 16:55 Intake and Output: 07/18/18 07/18/18 06:59 18:59 Intake Total 60 Output Total 200 Balance -140 - Medications Medications: Current Medications Acetaminophen (Tylenol 650 Mg Supp) 650 mg RC Q6H PRN PRN Reason: Fever >100.4 F Albuterol/Ipratropium (Duoneb 3 Mg/0.5 Mg (3 Ml) Ud) 3 ml IH [id number] [facility] Last Admin: 07/18/18 16:56 Dose: 3 ml Diphenhydramine HCl (Benadryl) 50 mg IVP Q6H PRN PRN Reason: Cough and congestion Morphine Sulfate (Morphine Television Repairer 1 Mg/Ml) 30 mls @ 0.5 mls/hr IV PRN PRN; Protocol PRN Reason: TAPEMAN PER MD ORDER Last Admin: 07/18/18 03:32 Dose: 0.5 mg/hr, 0.5 mls/hr Levetiracetam (Keppra 500mg Ivpb) 500 mg in 100 mls @ 400 mls/hr IVPB Q12 [facility] Last Admin: 07/18/18 09:23 Dose: 400 mls/hr Lorazepam (Ativan) 0.5 mg IVP Q6H PRN; Protocol PRN Reason: Anxiety Last Admin: 07/16/18 16:10 Dose: 0.5 mg Racepinephrine (Racepinephrine 2.25% Inhl Soln) 0.5 ml IH [id number] PRN PRN Reason: for laryngeal bleeding Scopolamine (Transderm-Scop) 1 patch TD Q3D [facility] Last Admin: 07/18/18 15:38 Dose: 1 patch - Additional Findings Additional findings: - Constitutional Appears: No Acute Distress - Head Exam Head Exam: ATRAUMATIC, NORMAL INSPECTION - Eye Exam Eye Exam: EOMI Pupil Exam: PERRL - ENT Exam ENT Exam: Mucous Membranes Moist Additional comments: minimal dried blood appreciated in oropharynx - Neck Exam Additional comments: trach collar present, suctioning dark red fluid - Respiratory Exam Respiratory Exam: Decreased Breath Sounds. absent: Accessory Muscle Use, Respiratory Distress - Cardiovascular Exam Cardiovascular Exam: REGULAR RHYTHM, +S1, +S2 - GI/Abdominal Exam GI & Abdominal Exam: Normal Bowel Sounds. absent: Guarding, Rigid Additional comments: PEG tube in place - Extremities Exam Extremities Exam: Normal Inspection. absent: Calf Tenderness - Neurological Exam Neurological Exam: Alert, Awake - Skin Skin Exam: Normal Color, Warm Assessment and Plan - Assessment and Plan (Free Text) Assessment: 73 yo M with PMH of oropharyngeal CA (s/p laryngectomy and tracheostomy), COPD, seizure disorder, and arthritis admitted for worsening SOB, secretions, and hemoptysis. Patient agreed to be in hospice care at this time. Patient is DNI/DNR. Plan: History of oropharyngeal SCC -continuing to focus on patient care -working with social research assistant for transfer to outpatient hospice care -receiving morphine drip for pain, 0.5mg continuous infusion -ativan for agitation -s/p trach collar, draining dark red blood in suctioning tube -tylenol, benadryl, ativan, scopolamine -tube feeding, s/p PEG tube -may need transfer for outpatient hospice care Hemoptysis -Gross blood suctioning from oropharynx. H/H is downtrending previously, will not transfuse at this time -suction as needed, dark red fluid appreciated History of COPD -continue karoline History of seizure disorder - continue charlette Patient seen and examined with attending, Dr. Cleveland <Radha Cleveland - Last Filed: 07/20/18 06:58> Objective - Vital Signs/Intake and Output Vital Signs (last 24 hours): Temp Pulse Resp BP Pulse Ox 97.8 F 83 21 117/51 L 98 07/18/18 17:29 07/18/18 17:29 07/18/18 17:29 07/18/18 17:29 07/18/18 17:29 Intake and Output: 07/19/18 07/20/18 18:59 06:59 Intake Total 150 Output Total 100 Balance 50 - Medications Medications: Current Medications Acetaminophen (Tylenol 650 Mg Supp) 650 mg RC Q6H PRN PRN Reason: Fever >100.4 F Albuterol/Ipratropium (Duoneb 3 Mg/0.5 Mg (3 Ml) Ud) 3 ml IH [id number] [facility] Last Admin: 07/20/18 03:00 Dose: 3 ml Diphenhydramine HCl (Benadryl) 50 mg IVP Q6H PRN PRN Reason: Cough and congestion Fentanyl (Duragesic) 1 patch TD Q72H [facility] Last Admin: 07/19/18 13:23 Dose: 1 patch Levetiracetam (Keppra 500mg Ivpb) 500 mg in 100 mls @ 400 mls/hr IVPB Q12 [facility] Last Admin: 07/19/18 21:22 Dose: 400 mls/hr Lorazepam (Ativan) 0.5 mg IVP Q6H PRN; Protocol PRN Reason: Anxiety Last Admin: 07/16/18 16:10 Dose: 0.5 mg Morphine Sulfate (Morphine) 2 mg IVP Q4H PRN PRN Reason: Pain, moderate (4-7) Racepinephrine (Racepinephrine 2.25% Inhl Soln) 0.5 ml IH [id number] PRN PRN Reason: for laryngeal bleeding Scopolamine (Transderm-Scop) 1 patch TD Q3D [facility] Last Admin: 07/18/18 15:38 Dose: 1 patch Attending/Attestation - Attestation I have personally seen and examined this patient.: Yes I have fully participated in the care of the patient.: Yes I have reviewed all pertinent clinical information, including history, physical exam and plan: Yes Notes (Text): Patient seen and examined by me with resident at 10:40 AM on 07/18/18. Case including HPI, physical exam, and assessment and plan discussed with resident. Agree with above with following additions/corrections. 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 Patient is awake and alert today. Patient's sister and cousin at bedside. Patient denies any pain. No shortness of breath. No headaches or dizziness. No nausea, vomiting, or abdominal pain. Physical exam: General: Lying in bed in no acute distress, cachectic appearing HEENT: Normocephalic atraumatic. Pupils equal reactive. No scleral icterus. Oropharynx is pink. Positive dry mucous membranes. Resolved scabs noted on patient's tongue. Positive trach collar in place, no signs of infection. Cardiovascular: Normal S1, S2. No murmurs, rubs, or gallops appreciated Pulmonary: Normal respiratory effort. Decreased breath sounds. Coarse breath sounds. No rales or wheezing appreciated. Gastrointestinal: Soft, nondistended. Nontender. Positive bowel sounds all 4 quadrants, no guarding. Peg tube in place with no signs of infection. Musculoskeletal: Moves all extremities, no calf tenderness. No edema appreciated Central nervous system: AAOx3 Dermatologic: Skin warm and dry. 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 1. Oral pharyngeal cancer. Worsening of tumor seen on CT neck. Still with hemoptysis. Patient on inpatient hospice care. Continue with comfort measures. Continue with morphine drip. Continue Ativan as needed. Continue scoplamine patch every 3 days. Palliative care following, recommendations appreciated 2. History fo seizures. Continue IV keppra. 3. Anemia. Secondary to active bleeding. No blood transfusions as patient requested hospice care and no transfusion 4. COPD. Continue on nebulizer treatments 5. Patient is DNR/DNI, Hospice. Case was discussed in detail with the patient. All questions answered.
[2018-07-19] MEDS: Albuterol-Ipratrop 3 mg / 0.5 (3 ml) UD IH SCH ×6 (02:20→23:22)
[2018-07-19] MEDS: levETIRAcetam 500mg IVPB 500 MG/100 ML BAG IVPB SCH ×2 (09:56→21:22)
--- NOTE | 2018-07-19 13:31 | CP.PCM.PN ---
Subjective - Date & Time of Evaluation Date of Evaluation: 07/19/18 Time of Evaluation: 12:00 - Subjective Subjective: Alert, offers no complaints Objective - Vital Signs/Intake and Output Vital Signs (last 24 hours): Temp Pulse Resp BP Pulse Ox 97.8 F 83 21 117/51 L 98 07/18/18 17:29 07/18/18 17:29 07/18/18 17:29 07/18/18 17:29 07/18/18 17:29 - Medications Medications: Current Medications Acetaminophen (Tylenol 650 Mg Supp) 650 mg RC Q6H PRN PRN Reason: Fever >100.4 F Albuterol/Ipratropium (Duoneb 3 Mg/0.5 Mg (3 Ml) Ud) 3 ml IH [id number] [facility] Last Admin: 07/19/18 10:53 Dose: 3 ml Diphenhydramine HCl (Benadryl) 50 mg IVP Q6H PRN PRN Reason: Cough and congestion Fentanyl (Duragesic) 1 patch TD Q72H [facility] Morphine Sulfate (Morphine Apparel Rental Clerk 1 Mg/Ml) 30 mls @ 0.5 mls/hr IV PRN PRN; Protocol PRN Reason: ASSISTANT COACH PER MD ORDER Last Admin: 07/18/18 03:32 Dose: 0.5 mg/hr, 0.5 mls/hr Levetiracetam (Keppra 500mg Ivpb) 500 mg in 100 mls @ 400 mls/hr IVPB Q12 [facility] Last Admin: 07/19/18 09:56 Dose: 400 mls/hr Lorazepam (Ativan) 0.5 mg IVP Q6H PRN; Protocol PRN Reason: Anxiety Last Admin: 07/16/18 16:10 Dose: 0.5 mg Racepinephrine (Racepinephrine 2.25% Inhl Soln) 0.5 ml IH [id number] PRN PRN Reason: for laryngeal bleeding Scopolamine (Transderm-Scop) 1 patch TD Q3D [facility] Last Admin: 07/18/18 15:38 Dose: 1 patch - Constitutional Appears: Cachectic, Chronically Ill - Head Exam Head Exam: NORMOCEPHALIC - Eye Exam Eye Exam: Normal appearance, PERRL - ENT Exam ENT Exam: Mucous Membranes Moist - Neck Exam Additional comments: trach patent - Respiratory Exam Respiratory Exam: Decreased Breath Sounds, Rhonchi - Cardiovascular Exam Cardiovascular Exam: +S1, +S2 - GI/Abdominal Exam GI & Abdominal Exam: Soft, Hypoactive Bowel Sounds, Pulsatile Mass Additional comments: G tube patent - Extremities Exam Extremities Exam: Full ROM, Normal Capillary Refill - Back Exam Back Exam: NORMAL INSPECTION - Neurological Exam Neurological Exam: Alert, Oriented x3 - Skin Skin Exam: Dry, Pallor, Warm Assessment and Plan - Assessment and Plan (Free Text) Assessment: 73 year old male with history of laryngeal cancer s/p tracheotomy, s/p XRT who was initially admitted to acute care with laryngeal bleeding now resolved, weakness, respiratory failure. He was transitioned to [facility] hospice care on 07/15/18 for symptom management. He is scheduled to be transferred to [facility] hospice care facility today. End of life dission with family have been ongoing. Patient and family in agreement with plan. Time spent in goals of care discussion with patient and family, 20 minutes Plan: Will add Fentanyl 25 mcg, Morphine infusion will be discontinued at time of transfer to [facility]. Glucerna 1.2 , 2 cans daily, mouth care. Tracheotomy suctioning as needed. Racepinephrine 2.25% IH for laryngeal bleeding Keppra 500 mg twice daily for seizure prevention Ativan 0.5mg for anxiety
--- NOTE | 2018-07-19 15:10 | CP.PCM.DIS ---
<Dean Arrington - Last Filed: 07/19/18 15:07> Provider - Provider Date of Admission: 07/15/18 13:27 Attending physician: Lucio Edge MD Consults: Palliative care consult Time Spent in preparation of Discharge (in minutes): 35 Hospital Course - Hospital Course Hospital Course: Upon admission: This is a 73M with a PMH of COPD, Seizure, and arthritis and oropharyngeal squamous cell carcinoma diagnosed in 2012 s/p total larygnectomy and trach. Subsequently in 2016 patient was found to have recurrence of throat CA. He presented most recently in 05/2018 w/ large soft tissue mass in oropharyngeal region; during this visit patient received PEG tube placement. Patient reports he currently does not want radiation/chemotherapy at this time. He presented to [facility] 07/02 with complaints of SOB, hemoptysis as well as worsening bloody secretions over the past month. Patient reports hemoptysis as light pink tinged mucopurlent sputum and denies overtly bloody or clotted sputum. He says his SOB feels as if he is not getting enough air through his tracheostomy. Patient reported he sees ENT Dr. Tapia for trach management. During hospital course, patient's care was focused on comfort care with continuous morphine drip for pain control. He was given tylenol, benadryl, ativan, duonebs, keppra, scopolamine and feedings through tube. Ativan as needed. Patient was not transfused in light of anemia due to focus on comfort care. At time of transfer today, morphine will be discontinued and fentanyl 25mcg will be given for pain control. Upon discharge: Patient will continue receiving comfort care at [facility] facility after transfer today. Discharge Exam - Head Exam Head Exam: NORMOCEPHALIC - Additional Findings Additional findings: - Constitutional Appears: No Acute Distress - Head Exam Head Exam: ATRAUMATIC, NORMAL INSPECTION - Eye Exam Eye Exam: EOMI Pupil Exam: PERRL - ENT Exam ENT Exam: Mucous Membranes Moist Additional comments: minimal dried blood appreciated in oropharynx - Neck Exam Additional comments: trach collar present, suctioning dark red fluid - Respiratory Exam Respiratory Exam: Decreased Breath Sounds. absent: Accessory Muscle Use, Respiratory Distress - Cardiovascular Exam Cardiovascular Exam: REGULAR RHYTHM, +S1, +S2 - GI/Abdominal Exam GI & Abdominal Exam: Normal Bowel Sounds. absent: Guarding, Rigid Additional comments: PEG tube in place - Extremities Exam Extremities Exam: Normal Inspection. absent: Calf Tenderness - Neurological Exam Neurological Exam: Alert, Awake - Skin Skin Exam: Normal Color, Warm Discharge Plan - Discharge Medications Prescriptions: Acetaminophen [Tylenol 650 mg Supp] 650 mg RC Q6 PRN 2 Days #8 sup PRN Reason: Fever >100.4 F levETIRAcetam 500mg IVPB [Keppra 500mg IVPB] 500 mg IVPB BID 5 Days #10 bag RX: Morphine TILE CONDUIT LAYER 1 mg/ml 1 mg IV CONT 2 Days #30 ml - Follow Up Plan Condition: GOOD Disposition: HOSPICE - MEDICAL FACILITY Additional Instructions: Resume medications as directed from hospital. Please resume hospice care. Thank you for allowing us to take care of you. <Radha Cleveland R - Last Filed: 07/20/18 06:59> Provider - Provider Date of Admission: 07/15/18 13:27 Attending physician: Lucio Edge MD Attending/Attestation - Attestation I have personally seen and examined this patient.: Yes I have fully participated in the care of the patient.: Yes I have reviewed all pertinent clinical information, including history, physical exam and plan: Yes Notes (Text): Please disregard d/c summary. Patient unable to be discharged today. Please see progress note from same day.
--- NOTE | 2018-07-19 16:43 | CP.PCM.PN ---
<Dean Arrington - Last Filed: 07/19/18 16:39> Subjective - Date & Time of Evaluation Date of Evaluation: 07/19/18 Time of Evaluation: 11:00 - Subjective Subjective: Dean Arrington PGY1 Medicine Progress Note Patient seen and examined at bedside this morning. No acute events overnight. Offers no complaints at this time. Patient is alert and resting comfortably. Discharge to outpatient hospice delayed to Sunday due to bed unavailability. Objective - Vital Signs/Intake and Output Vital Signs (last 24 hours): Temp Pulse Resp BP Pulse Ox 97.8 F 83 21 117/51 L 98 07/18/18 17:29 07/18/18 17:29 07/18/18 17:29 07/18/18 17:29 07/18/18 17:29 - Medications Medications: Current Medications Acetaminophen (Tylenol 650 Mg Supp) 650 mg RC Q6H PRN PRN Reason: Fever >100.4 F Albuterol/Ipratropium (Duoneb 3 Mg/0.5 Mg (3 Ml) Ud) 3 ml IH [id number] [facility] Last Admin: 07/19/18 15:03 Dose: 3 ml Diphenhydramine HCl (Benadryl) 50 mg IVP Q6H PRN PRN Reason: Cough and congestion Fentanyl (Duragesic) 1 patch TD Q72H [facility] Last Admin: 07/19/18 13:23 Dose: 1 patch Levetiracetam (Keppra 500mg Ivpb) 500 mg in 100 mls @ 400 mls/hr IVPB Q12 [facility] Last Admin: 07/19/18 09:56 Dose: 400 mls/hr Lorazepam (Ativan) 0.5 mg IVP Q6H PRN; Protocol PRN Reason: Anxiety Last Admin: 07/16/18 16:10 Dose: 0.5 mg Morphine Sulfate (Morphine) 2 mg IVP Q4H PRN PRN Reason: Pain, moderate (4-7) Racepinephrine (Racepinephrine 2.25% Inhl Soln) 0.5 ml IH [id number] PRN PRN Reason: for laryngeal bleeding Scopolamine (Transderm-Scop) 1 patch TD Q3D [facility] Last Admin: 07/18/18 15:38 Dose: 1 patch - Additional Findings Additional findings: - Head Exam Head Exam: NORMOCEPHALIC - Constitutional Appears: No Acute Distress - Head Exam Head Exam: ATRAUMATIC, NORMAL INSPECTION - Eye Exam Eye Exam: EOMI Pupil Exam: PERRL - ENT Exam ENT Exam: Mucous Membranes Moist Additional comments: minimal dried blood appreciated in oropharynx - Neck Exam Additional comments: trach collar present, suctioning dark red fluid - Respiratory Exam Respiratory Exam: Decreased Breath Sounds. absent: Accessory Muscle Use, Respiratory Distress - Cardiovascular Exam Cardiovascular Exam: REGULAR RHYTHM, +S1, +S2 - GI/Abdominal Exam GI & Abdominal Exam: Normal Bowel Sounds. absent: Guarding, Rigid Additional comments: PEG tube in place - Extremities Exam Extremities Exam: Normal Inspection. absent: Calf Tenderness - Neurological Exam Neurological Exam: Alert, Awake - Skin Skin Exam: Normal Color, Warm Assessment and Plan - Assessment and Plan (Free Text) Assessment: 73 yo M with PMH of oropharyngeal CA (s/p laryngectomy and tracheostomy), COPD, seizure disorder, and arthritis admitted for worsening SOB, secretions, and hemoptysis. Patient agreed to be in hospice care at this time. Patient is DNI/DNR. Plan: History of oropharyngeal SCC -continuing to focus on patient care -transfer to [facility] is delayed to Sunday due to bed unavailability -fentanyl 25mcg transdermal -morphine 2 mg IVP PRN -ativan for agitation -s/p trach collar, draining dark red blood in suctioning tube -tylenol, benadryl, ativan, scopolamine -tube feeding, s/p PEG tube Hemoptysis -Gross blood suctioning from oropharynx. H/H is downtrending previously, will not transfuse at this time -suction as needed, dark red fluid appreciated History of COPD -continue karoline History of seizure disorder - [facility] Patient seen and examined with attending, Dr. Cleveland <Radha Cleveland - Last Filed: 07/20/18 07:04> Objective - Vital Signs/Intake and Output Vital Signs (last 24 hours): Temp Pulse Resp BP Pulse Ox 97.8 F 83 21 117/51 L 98 07/18/18 17:29 07/18/18 17:29 07/18/18 17:29 07/18/18 17:29 07/18/18 17:29 Intake and Output: 07/20/18 07/20/18 06:59 18:59 Intake Total 150 Output Total 100 Balance 50 - Medications Medications: Current Medications Acetaminophen (Tylenol 650 Mg Supp) 650 mg RC Q6H PRN PRN Reason: Fever >100.4 F Albuterol/Ipratropium (Duoneb 3 Mg/0.5 Mg (3 Ml) Ud) 3 ml IH [id number] [facility] Last Admin: 07/20/18 03:00 Dose: 3 ml Diphenhydramine HCl (Benadryl) 50 mg IVP Q6H PRN PRN Reason: Cough and congestion Fentanyl (Duragesic) 1 patch TD Q72H [facility] Last Admin: 07/19/18 13:23 Dose: 1 patch Levetiracetam (Keppra 500mg Ivpb) 500 mg in 100 mls @ 400 mls/hr IVPB Q12 [facility] Last Admin: 07/19/18 21:22 Dose: 400 mls/hr Lorazepam (Ativan) 0.5 mg IVP Q6H PRN; Protocol PRN Reason: Anxiety Last Admin: 07/16/18 16:10 Dose: 0.5 mg Morphine Sulfate (Morphine) 2 mg IVP Q4H PRN PRN Reason: Pain, moderate (4-7) Racepinephrine (Racepinephrine 2.25% Inhl Soln) 0.5 ml IH [id number] PRN PRN Reason: for laryngeal bleeding Scopolamine (Transderm-Scop) 1 patch TD Q3D [facility] Last Admin: 07/18/18 15:38 Dose: 1 patch Attending/Attestation - Attestation I have personally seen and examined this patient.: Yes I have fully participated in the care of the patient.: Yes I have reviewed all pertinent clinical information, including history, physical exam and plan: Yes Notes (Text): Patient seen and examined by me with resident at 11:15 AM on 07/19/18. Case including HPI, physical exam, and assessment and plan discussed with resident. Agree with above with following additions/corrections. 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 Patient is more sleepy today. Complains of some knee pain. Denies any shortness of breath. No headaches or dizziness. No nausea, vomiting, or abdominal pain. Physical exam: General: Lying in bed in no acute distress, cachectic appearing HEENT: Normocephalic atraumatic. Pupils equal reactive. No scleral icterus. Oropharynx is pink. Positive dry mucous membranes. Positive trach collar in place, no signs of infection. Cardiovascular: Normal S1, S2. No murmurs, rubs, or gallops appreciated Pulmonary: Normal respiratory effort. Decreased breath sounds. Coarse breath sounds. No rales or wheezing appreciated. Gastrointestinal: Soft, nondistended. Nontender. Positive bowel sounds all 4 quadrants, no guarding. Peg tube in place with no signs of infection. Musculoskeletal: Moves all extremities, no calf tenderness. No edema appreciated Central nervous system: AAOx3 Dermatologic: Skin warm and dry. 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 1. Oral pharyngeal cancer. Worsening of tumor seen on CT neck. Still with hemoptysis. Continue with suctioning. Patient on inpatient hospice care. Continue with comfort measures. Continue with morphine drip. Continue Ativan as needed. Continue scopolamine patch every 3 days. Palliative care following, recommendations appreciated 2. History fo seizures. Continue IV keppra. 3. Anemia. Secondary to active bleeding. No blood transfusions as patient requested hospice care and no transfusion 4. COPD. Continue on nebulizer treatments 5. Patient is DNR/DNI, Hospice. Case was discussed in detail with the patient. All questions answered.
[2018-07-20] MEDS: Albuterol-Ipratrop 3 mg / 0.5 (3 ml) UD IH SCH ×5 (03:00→19:52)
[2018-07-20] MEDS: levETIRAcetam 500mg IVPB 500 MG/100 ML BAG IVPB SCH ×2 (09:13→21:54)
--- NOTE | 2018-07-20 14:25 | CP.PCM.PN ---
<Dean Arrington - Last Filed: 07/20/18 14:21> Subjective - Date & Time of Evaluation Date of Evaluation: 07/20/18 Time of Evaluation: 08:45 - Subjective Subjective: Dean Arrington PGY1 Medicine Progress Note Patient seen and examined at bedside this morning. No acute events overnight. Offers no complaints at this time. Patient is resting comfortably and in good spirits. Discharge to hospice care facility delayed to Sunday due to bed unavailability. Objective - Vital Signs/Intake and Output Vital Signs (last 24 hours): Temp Pulse Resp BP Pulse Ox 97.8 F 83 21 117/51 L 98 07/18/18 17:29 07/18/18 17:29 07/18/18 17:29 07/18/18 17:29 07/18/18 17:29 Intake and Output: 07/20/18 07/20/18 06:59 18:59 Intake Total 150 Output Total 100 Balance 50 - Medications Medications: Current Medications Acetaminophen (Tylenol 650 Mg Supp) 650 mg RC Q6H PRN PRN Reason: Fever >100.4 F Albuterol/Ipratropium (Duoneb 3 Mg/0.5 Mg (3 Ml) Ud) 3 ml IH [id number] [facility] Last Admin: 07/20/18 11:29 Dose: 3 ml Diphenhydramine HCl (Benadryl) 50 mg IVP Q6H PRN PRN Reason: Cough and congestion Fentanyl (Duragesic) 1 patch TD Q72H [facility] Last Admin: 07/19/18 13:23 Dose: 1 patch Levetiracetam (Keppra 500mg Ivpb) 500 mg in 100 mls @ 400 mls/hr IVPB Q12 [facility] Last Admin: 07/20/18 09:13 Dose: 400 mls/hr Lorazepam (Ativan) 0.5 mg IVP Q6H PRN; Protocol PRN Reason: Anxiety Last Admin: 07/20/18 12:16 Dose: 0.5 mg Morphine Sulfate (Morphine) 2 mg IVP Q4H PRN PRN Reason: Pain, moderate (4-7) Racepinephrine (Racepinephrine 2.25% Inhl Soln) 0.5 ml IH [id number] PRN PRN Reason: for laryngeal bleeding Scopolamine (Transderm-Scop) 1 patch TD Q3D [facility] Last Admin: 07/18/18 15:38 Dose: 1 patch - Additional Findings Additional findings: - Head Exam Head Exam: NORMOCEPHALIC - Constitutional Appears: No Acute Distress - Head Exam Head Exam: ATRAUMATIC, NORMAL INSPECTION - Eye Exam Eye Exam: EOMI Pupil Exam: PERRL - ENT Exam ENT Exam: Mucous Membranes Moist Additional comments: minimal dried blood appreciated in oropharynx - Neck Exam Additional comments: trach collar present, suctioning dark red fluid - Respiratory Exam Respiratory Exam: Decreased Breath Sounds. absent: Accessory Muscle Use, Respiratory Distress - Cardiovascular Exam Cardiovascular Exam: REGULAR RHYTHM, +S1, +S2 - GI/Abdominal Exam GI & Abdominal Exam: Normal Bowel Sounds. absent: Guarding, Rigid Additional comments: PEG tube in place - Extremities Exam Extremities Exam: Normal Inspection. absent: Calf Tenderness - Neurological Exam Neurological Exam: Alert, Awake - Skin Skin Exam: Normal Color, Warm Assessment and Plan - Assessment and Plan (Free Text) Assessment: 73 yo M with PMH of oropharyngeal CA (s/p laryngectomy and tracheostomy), COPD, seizure disorder, and arthritis admitted for worsening SOB, secretions, and hemoptysis. Patient agreed to be in hospice care at this time. Patient is DNI/DNR. Plan for transfer to outpatient hospice care on Sunday, pending bed availability. Plan: History of oropharyngeal SCC -transfer to [facility] is delayed to Sunday, pending bed availability -morphine 2 mg IVP PRN -ativan for agitation -fentanyl 25mcg transdermal -s/p trach collar, draining dark red blood in suctioning tube -tylenol, benadryl, ativan, scopolamine -tube feeding, s/p PEG tube -continuing to focus on patient care Hemoptysis -Gross blood suctioning from oropharynx. H/H is downtrending previously, will not transfuse at this time -suction as needed, dark red fluid suctioning History of seizure disorder - continue keppra History of COPD -continue duonebs Patient seen and examined with attending, Dr. Cleveland <Radha Cleveland R - Last Filed: 07/21/18 11:43> Objective - Vital Signs/Intake and Output Vital Signs (last 24 hours): Temp Pulse Resp BP Pulse Ox 99.2 F 99 H 18 131/82 95 07/21/18 06:00 07/21/18 06:00 07/21/18 06:00 07/21/18 06:00 07/21/18 06:00 - Medications Medications: Current Medications Acetaminophen (Tylenol 650 Mg Supp) 650 mg RC Q6H PRN PRN Reason: Fever >100.4 F Albuterol/Ipratropium (Duoneb 3 Mg/0.5 Mg (3 Ml) Ud) 3 ml IH [id number] [facility] Last Admin: 07/21/18 11:38 Dose: 3 ml Diphenhydramine HCl (Benadryl) 50 mg IVP Q6H PRN PRN Reason: Cough and congestion Fentanyl (Duragesic) 1 patch TD Q72H [facility] Last Admin: 07/19/18 13:23 Dose: 1 patch Levetiracetam (Keppra 500mg Ivpb) 500 mg in 100 mls @ 400 mls/hr IVPB Q12 [facility] Last Admin: 07/21/18 10:35 Dose: 400 mls/hr Lorazepam (Ativan) 0.5 mg IVP Q6H PRN; Protocol PRN Reason: Anxiety Last Admin: 07/20/18 12:16 Dose: 0.5 mg Morphine Sulfate (Morphine) 2 mg IVP Q4H PRN PRN Reason: Pain, moderate (4-7) Last Admin: 07/20/18 20:01 Dose: 2 mg Racepinephrine (Racepinephrine 2.25% Inhl Soln) 0.5 ml IH [id number] PRN PRN Reason: for laryngeal bleeding Scopolamine (Transderm-Scop) 1 patch TD Q3D [facility] Last Admin: 07/18/18 15:38 Dose: 1 patch Attending/Attestation - Attestation I have personally seen and examined this patient.: Yes I have fully participated in the care of the patient.: Yes I have reviewed all pertinent clinical information, including history, physical exam and plan: Yes Notes (Text): Patient seen and examined by me with resident at 9:20AM on 07/20/18. Case including HPI, physical exam, and assessment and plan discussed with resident. Agree with above with following additions/corrections. 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 Patient is awake and alert today. Only complains of knee pain. Family at bedside. Complains No shortness of breath. No headaches or dizziness. No nausea, vomiting, or abdominal pain. Physical exam: General: Lying in bed in no acute distress, cachectic appearing HEENT: Normocephalic atraumatic. Pupils equal reactive. No scleral icterus. Oropharynx is pink. Positive dry mucous membranes. Positive trach collar in place, no signs of infection. Cardiovascular: Normal S1, S2. No murmurs, rubs, or gallops appreciated Pulmonary: Normal respiratory effort. Decreased breath sounds. No rhonchi, rales, or wheezing appreciated. Gastrointestinal: Soft, nondistended. Nontender. Positive bowel sounds all 4 quadrants, no guarding. Peg tube in place with no signs of infection. Musculoskeletal: Moves all extremities, no calf tenderness. No edema appreciated Central nervous system: AAOx3 Dermatologic: Skin warm and dry. 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 1. Oral pharyngeal cancer. Worsening of tumor seen on CT neck. Patient still suctioning some blood. Still with hemoptysis. Continue with sucitioning. Continue inpatient hospice care. Continue with comfort measures. Continue with morphine drip. Continue Ativan as needed. Continue scoplamine patch every 3 days. Palliative care following, recommendations appreciated 2. History fo seizures. Continue IV keppra. 3. Anemia. Secondary to active bleeding. No blood transfusions as patient requested hospice care and no transfusion 4. COPD. Continue on nebulizer treatments 5. Patient is DNR/DNI, Hospice. Case was discussed in detail with the patient. All questions answered.
[2018-07-20] MEDS: Morphine 2 mg/ml ISec IVP PRN ×2 (14:55→20:01)
[2018-07-21] MEDS: Albuterol-Ipratrop 3 mg / 0.5 (3 ml) UD IH SCH ×7 (00:05→23:46)
[2018-07-21] MEDS: levETIRAcetam 500mg IVPB 500 MG/100 ML BAG IVPB SCH ×2 (10:35→21:22)
--- NOTE | 2018-07-21 15:57 | CP.PCM.PN ---
<Dean Arrington - Last Filed: 07/21/18 15:52> Subjective - Date & Time of Evaluation Date of Evaluation: 07/21/18 Time of Evaluation: 09:30 - Subjective Subjective: Dean Arrington PGY1 Medicine Progress Note Patient seen and examined at bedside this morning. No acute events overnight. Patient resting in bed comfortably, offers no complaints at time of examination. Discharge to hospice care facility planned for Sunday. Objective - Vital Signs/Intake and Output Vital Signs (last 24 hours): Temp Pulse Resp BP Pulse Ox 99.2 F 99 H 18 131/82 95 07/21/18 06:00 07/21/18 06:00 07/21/18 06:00 07/21/18 06:00 07/21/18 06:00 - Medications Medications: Current Medications Acetaminophen (Tylenol 650 Mg Supp) 650 mg RC Q6H PRN PRN Reason: Fever >100.4 F Albuterol/Ipratropium (Duoneb 3 Mg/0.5 Mg (3 Ml) Ud) 3 ml IH [id number] [facility] Last Admin: 07/21/18 11:38 Dose: 3 ml Diphenhydramine HCl (Benadryl) 50 mg IVP Q6H PRN PRN Reason: Cough and congestion Fentanyl (Duragesic) 1 patch TD Q72H [facility] Last Admin: 07/19/18 13:23 Dose: 1 patch Levetiracetam (Keppra 500mg Ivpb) 500 mg in 100 mls @ 400 mls/hr IVPB Q12 [facility] Last Admin: 07/21/18 10:35 Dose: 400 mls/hr Lorazepam (Ativan) 0.5 mg IVP Q6H PRN; Protocol PRN Reason: Anxiety Last Admin: 07/20/18 12:16 Dose: 0.5 mg Morphine Sulfate (Morphine) 2 mg IVP Q4H PRN PRN Reason: Pain, moderate (4-7) Last Admin: 07/20/18 20:01 Dose: 2 mg Racepinephrine (Racepinephrine 2.25% Inhl Soln) 0.5 ml IH [id number] PRN PRN Reason: for laryngeal bleeding Scopolamine (Transderm-Scop) 1 patch TD Q3D [facility] Last Admin: 07/21/18 13:42 Dose: 1 patch - Additional Findings Additional findings: - Head Exam Head Exam: NORMOCEPHALIC - Constitutional Appears: No Acute Distress - Head Exam Head Exam: ATRAUMATIC, NORMAL INSPECTION - Eye Exam Eye Exam: EOMI Pupil Exam: PERRL - ENT Exam ENT Exam: Mucous Membranes Moist Additional comments: dried blood appreciated in oropharynx - Neck Exam Additional comments: trach collar present, suctioning dark red fluid through suctioning tube - Respiratory Exam Respiratory Exam: Decreased Breath Sounds. absent: Accessory Muscle Use, Respiratory Distress - Cardiovascular Exam Cardiovascular Exam: REGULAR RHYTHM, +S1, +S2 - GI/Abdominal Exam GI & Abdominal Exam: Normal Bowel Sounds. absent: Guarding, Rigid Additional comments: PEG tube in place, non bleeding/oozing - Extremities Exam Extremities Exam: Normal Inspection. absent: Calf Tenderness - Neurological Exam Neurological Exam: Alert, Awake - Skin Skin Exam: Normal Color, Warm Assessment and Plan - Assessment and Plan (Free Text) Assessment: 73 yo M with PMH of oropharyngeal CA (s/p laryngectomy and tracheostomy), COPD, seizure disorder, and arthritis admitted for worsening SOB, secretions, and hemoptysis. Patient agreed to be in hospice care at this time. Patient is DNI/DNR. Plan for transfer to outpatient hospice care on Sunday, pending bed availability. Will confirm with social work case manager. Plan: History of oropharyngeal SCC -transfer to [facility] is delayed to Sunday, pending bed availability -continuing to focus on patient care -morphine 2 mg IVP PRN, denies pain at this time -ativan for agitation -fentanyl 25mcg transdermal -s/p trach collar, draining dark red blood in suctioning tube -tylenol, benadryl, ativan, scopolamine -tube feeding, s/p PEG tube Hemoptysis -Gross blood suctioning from oropharynx. H/H is downtrending last week, focus on comfort care, no transfusion at this time. -suction as needed, dark red fluid suctioning History of seizure disorder -continue keppra. Midline fell out today, will inject through IV line History of COPD -continue duonebs Patient seen and examined with attending, Dr. Cleveland <Radha Cleveland - Last Filed: 07/21/18 16:06> Objective - Vital Signs/Intake and Output Vital Signs (last 24 hours): Temp Pulse Resp BP Pulse Ox 99.2 F 99 H 18 131/82 95 07/21/18 06:00 07/21/18 06:00 07/21/18 06:00 07/21/18 06:00 07/21/18 06:00 - Medications Medications: Current Medications Acetaminophen (Tylenol 650 Mg Supp) 650 mg RC Q6H PRN PRN Reason: Fever >100.4 F Albuterol/Ipratropium (Duoneb 3 Mg/0.5 Mg (3 Ml) Ud) 3 ml IH [id number] [facility] Last Admin: 07/21/18 11:38 Dose: 3 ml Diphenhydramine HCl (Benadryl) 50 mg IVP Q6H PRN PRN Reason: Cough and congestion Fentanyl (Duragesic) 1 patch TD Q72H [facility] Last Admin: 07/19/18 13:23 Dose: 1 patch Levetiracetam (Keppra 500mg Ivpb) 500 mg in 100 mls @ 400 mls/hr IVPB Q12 [facility] Last Admin: 07/21/18 10:35 Dose: 400 mls/hr Lorazepam (Ativan) 0.5 mg IVP Q6H PRN; Protocol PRN Reason: Anxiety Last Admin: 07/20/18 12:16 Dose: 0.5 mg Morphine Sulfate (Morphine) 2 mg IVP Q4H PRN PRN Reason: Pain, moderate (4-7) Last Admin: 07/20/18 20:01 Dose: 2 mg Racepinephrine (Racepinephrine 2.25% Inhl Soln) 0.5 ml IH [id number] PRN PRN Reason: for laryngeal bleeding Scopolamine (Transderm-Scop) 1 patch TD Q3D [facility] Last Admin: 07/21/18 13:42 Dose: 1 patch Attending/Attestation - Attestation I have personally seen and examined this patient.: Yes I have fully participated in the care of the patient.: Yes I have reviewed all pertinent clinical information, including history, physical exam and plan: Yes Notes (Text): Patient seen and examined by me with resident at 9:20AM on 07/21/18. Case including HPI, physical exam, and assessment and plan discussed with resident. Agree with above with following additions/corrections. 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 Patient is more tired today and sleepy. Not answering many questions. No shortness of breath. No nausea, vomiting, or abdominal pain. Physical exam: General: Lying in bed in no acute distress, cachectic appearing HEENT: Normocephalic atraumatic. Pupils equal reactive. No scleral icterus. Oropharynx is pink. Positive dry mucous membranes. Positive trach collar in place, no signs of infection. Cardiovascular: Normal S1, S2. No murmurs, rubs, or gallops appreciated Pulmonary: Normal respiratory effort. Decreased breath sounds. No rhonchi, rales, or wheezing appreciated. Gastrointestinal: Soft, nondistended. Nontender. Positive bowel sounds all 4 quadrants, no guarding. Peg tube in place with no signs of infection. Musculoskeletal: Moves all extremities, no calf tenderness. No edema appreciated Central nervous system: sleepy but arousable. Dermatologic: Skin warm and dry. 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 1. Oral pharyngeal cancer. Worsening of tumor seen on CT neck. Patient still with some blood with suctioning. Continues with hemoptysis. Continue with sucitioning. Continue inpatient hospice care. Continue with comfort measures. Continue fentanyl patch. Continue morphine prn. Continue Ativan as needed. Continue scoplamine patch every 3 days. Palliative care following, recommendations appreciated 2. History fo seizures. Continue IV keppra. 3. Anemia. Secondary to active bleeding. No blood transfusions as patient requested hospice care and no transfusion 4. COPD. Continue on nebulizer treatments 5. Patient is DNR/DNI, Hospice.
[2018-07-21 17:24] VITALS: RESP 20; O2SAT 96
[2018-07-22] MEDS: Albuterol-Ipratrop 3 mg / 0.5 (3 ml) UD IH SCH ×5 (03:12→20:20)
[2018-07-22] MEDS: levETIRAcetam 500mg IVPB 500 MG/100 ML BAG IVPB SCH ×2 (09:17→21:19)
--- NOTE | 2018-07-22 11:33 | CP.PCM.PN ---
Subjective - Date & Time of Evaluation Date of Evaluation: 07/22/18 Time of Evaluation: 09:00 - Subjective Subjective: Periods of restlessness, Objective - Vital Signs/Intake and Output Vital Signs (last 24 hours): Temp Pulse Resp BP Pulse Ox 97.6 F 84 20 131/82 96 07/21/18 17:22 07/21/18 17:22 07/21/18 17:22 07/21/18 06:00 07/21/18 17:22 - Medications Medications: Current Medications Acetaminophen (Tylenol 650 Mg Supp) 650 mg RC Q6H PRN PRN Reason: Fever >100.4 F Albuterol/Ipratropium (Duoneb 3 Mg/0.5 Mg (3 Ml) Ud) 3 ml IH [id number] NAVEEN Last Admin: 07/22/18 11:25 Dose: 3 ml Diphenhydramine HCl (Benadryl) 50 mg IVP Q6H PRN PRN Reason: Cough and congestion Fentanyl (Duragesic) 1 patch TD Q72H NAVEEN Last Admin: 07/19/18 13:23 Dose: 1 patch Levetiracetam (Keppra 500mg Ivpb) 500 mg in 100 mls @ 400 mls/hr IVPB Q12 NAVEEN Last Admin: 07/22/18 09:17 Dose: 400 mls/hr Lorazepam (Ativan) 0.5 mg IVP Q12H NAVEEN; Protocol Lorazepam (Ativan) 0.5 mg IVP Q8H PRN; Protocol PRN Reason: Anxiety Morphine Sulfate (Morphine) 2 mg IVP Q4H PRN PRN Reason: Pain, moderate (4-7) Last Admin: 07/20/18 20:01 Dose: 2 mg Racepinephrine (Racepinephrine 2.25% Inhl Soln) 0.5 ml IH [id number] PRN PRN Reason: for laryngeal bleeding Scopolamine (Transderm-Scop) 1 patch TD Q3D NAVEEN - Constitutional Appears: Chronically Ill - Eye Exam Eye Exam: Normal appearance, PERRL - ENT Exam ENT Exam: Mucous Membranes Dry - Respiratory Exam Respiratory Exam: Decreased Breath Sounds, Rhonchi - Cardiovascular Exam Cardiovascular Exam: REGULAR RHYTHM, +S1, +S2 - GI/Abdominal Exam GI & Abdominal Exam: Soft, Normal Bowel Sounds - Extremities Exam Extremities Exam: Normal Inspection, Pedal Edema - Neurological Exam Neurological Exam: Alert, Oriented x3 - Skin Skin Exam: Dry, Pallor Assessment and Plan - Assessment and Plan (Free Text) Assessment: 73 year old male with history of laryngeal cancer s/p tracheotomy, XRT who is admitted under [facility] services of management of pain, laryngeal bleeding, upper history secretions which requires frequent suctioning and restlessness Plan: Ativan 0.5 mg scheduled twice daily, Ativan 0.5 mg as needed for agitation and restlessness Suctioning as needed,Duonnebs, Scopolamine Racepinephrine 2.25% IH for laryngeal bleeding Fentanyl 25mcg transdermal patch, Morphine 2 mg IVP for breakthrough pain as needed
--- NOTE | 2018-07-22 17:22 | CP.PCM.PN ---
<Dean Arrington - Last Filed: 07/22/18 17:22> Subjective - Date & Time of Evaluation Date of Evaluation: 07/22/18 Time of Evaluation: 11:00 - Subjective Subjective: Dean Arrington PGY1 Medicine Progress Note Patient seen and examined at bedside this morning. No acute events overnight. Offers no new complaints today. Patient resting in bed comfortably. Insurance will not approve patient for hospice, pending placement for [facility] tomorrow. Objective - Vital Signs/Intake and Output Vital Signs (last 24 hours): Temp Pulse Resp BP Pulse Ox 97.6 F 84 20 131/82 96 07/21/18 17:22 07/21/18 17:22 07/21/18 17:22 07/21/18 06:00 07/21/18 17:22 - Medications Medications: Current Medications Acetaminophen (Tylenol 650 Mg Supp) 650 mg RC Q6H PRN PRN Reason: Fever >100.4 F Albuterol/Ipratropium (Duoneb 3 Mg/0.5 Mg (3 Ml) Ud) 3 ml IH [id number] NAVEEN Last Admin: 07/22/18 14:32 Dose: 3 ml Diphenhydramine HCl (Benadryl) 50 mg IVP Q6H PRN PRN Reason: Cough and congestion Fentanyl (Duragesic) 1 patch TD Q72H NAVEEN Last Admin: 07/22/18 14:21 Dose: 1 patch Levetiracetam (Keppra 500mg Ivpb) 500 mg in 100 mls @ 400 mls/hr IVPB Q12 NAVEEN Last Admin: 07/22/18 09:17 Dose: 400 mls/hr Lorazepam (Ativan) 0.5 mg IVP Q12H NAVEEN; Protocol Last Admin: 07/22/18 11:21 Dose: 0.5 mg Lorazepam (Ativan) 0.5 mg IVP Q8H PRN; Protocol PRN Reason: Anxiety Morphine Sulfate (Morphine) 2 mg IVP Q4H PRN PRN Reason: Pain, moderate (4-7) Last Admin: 07/20/18 20:01 Dose: 2 mg Racepinephrine (Racepinephrine 2.25% Inhl Soln) 0.5 ml IH [id number] PRN PRN Reason: for laryngeal bleeding Scopolamine (Transderm-Scop) 1 patch TD Q3D [facility] Last Admin: 07/22/18 11:22 Dose: 1 patch - Additional Findings Additional findings: - Head Exam Head Exam: NORMOCEPHALIC - Constitutional Appears: No Acute Distress - Head Exam Head Exam: ATRAUMATIC, NORMAL INSPECTION - Eye Exam Eye Exam: EOMI Pupil Exam: PERRL - ENT Exam ENT Exam: Mucous Membranes Moist Additional comments: dried blood appreciated in oropharynx - Neck Exam Additional comments: trach collar present, suctioning dark red fluid through suctioning tube - Respiratory Exam Respiratory Exam: Decreased Breath Sounds. absent: Accessory Muscle Use, Respiratory Distress - Cardiovascular Exam Cardiovascular Exam: REGULAR RHYTHM, +S1, +S2 - GI/Abdominal Exam GI & Abdominal Exam: Normal Bowel Sounds. absent: Guarding, Rigid Additional comments: PEG tube in place, non bleeding/oozing - Extremities Exam Extremities Exam: Normal Inspection. absent: Calf Tenderness - Neurological Exam Neurological Exam: Alert, Awake - Skin Skin Exam: Normal Color, Warm Assessment and Plan - Assessment and Plan (Free Text) Assessment: 73 yo M with PMH of oropharyngeal CA (s/p laryngectomy and tracheostomy), COPD, seizure disorder, and arthritis admitted for worsening SOB, secretions, and hemoptysis. Patient agreed to be in hospice care at this time. Patient is DNI/DNR. Patient unable to get approved by insurance for hospice placement. Plant for [facility] tomorrow. Plan: History of oropharyngeal SCC -potential placement in [facility] tomorrow -continuing to focus on patient care -morphine 2 mg IVP PRN, denies pain at this time -ativan for agitation -fentanyl 25mcg transdermal -s/p trach collar, draining dark red blood in suctioning tube -tylenol, benadryl, ativan, scopolamine -tube feeding, s/p PEG tube Hemoptysis -Gross blood suctioning from oropharynx. H/H is downtrending last week -focus on comfort care, no transfusion at this time. -suction as needed, dark red fluid suctioning History of seizure disorder -continue keppra. Midline fell out today, will inject through IV line History of COPD -continue duonebs Patient seen and examined with attending, Dr. Lantigua <Edward Lantigua - Last Filed: 07/22/18 18:00> Objective - Vital Signs/Intake and Output Vital Signs (last 24 hours): Temp Pulse Resp BP Pulse Ox 97.6 F 84 20 131/82 96 07/21/18 17:22 07/21/18 17:22 07/21/18 17:22 07/21/18 06:00 07/21/18 17:22 - Medications Medications: Current Medications Acetaminophen (Tylenol 650 Mg Supp) 650 mg RC Q6H PRN PRN Reason: Fever >100.4 F Albuterol/Ipratropium (Duoneb 3 Mg/0.5 Mg (3 Ml) Ud) 3 ml IH [id number] NAVEEN Last Admin: 07/22/18 14:32 Dose: 3 ml Diphenhydramine HCl (Benadryl) 50 mg IVP Q6H PRN PRN Reason: Cough and congestion Fentanyl (Duragesic) 1 patch TD Q72H NAVEEN Last Admin: 07/22/18 14:21 Dose: 1 patch Levetiracetam (Keppra 500mg Ivpb) 500 mg in 100 mls @ 400 mls/hr IVPB Q12 NAVEEN Last Admin: 07/22/18 09:17 Dose: 400 mls/hr Lorazepam (Ativan) 0.5 mg IVP Q12H NAVEEN; Protocol Last Admin: 07/22/18 11:21 Dose: 0.5 mg Lorazepam (Ativan) 0.5 mg IVP Q8H PRN; Protocol PRN Reason: Anxiety Last Admin: 07/22/18 15:09 Dose: 0.5 mg Morphine Sulfate (Morphine) 2 mg IVP Q4H PRN PRN Reason: Pain, moderate (4-7) Last Admin: 07/22/18 17:28 Dose: 2 mg Racepinephrine (Racepinephrine 2.25% Inhl Soln) 0.5 ml IH [id number] PRN PRN Reason: for laryngeal bleeding Scopolamine (Transderm-Scop) 1 patch TD Q3D NAVEEN Last Admin: 07/22/18 11:22 Dose: 1 patch Attending/Attestation - Attestation I have personally seen and examined this patient.: Yes I have fully participated in the care of the patient.: Yes I have reviewed all pertinent clinical information, including history, physical exam and plan: Yes Notes (Text): 73y/o M with oropharyngeal CA s/p laryngectomy with reoccurrence of throat cancer in 2017, tumor is worsened on CT scan. Prognosis is poor. Pt is currently awaiting placement at hospice facility. SW on board and discussing with family. Family demanding pt be placed in a hospice facility in [place]. will f/u with SW about available options. 07/22/18 17:52
[2018-07-22] MEDS: Morphine 2 mg/ml ISec IVP PRN (17:28)
[2018-07-23] MEDS: Albuterol-Ipratrop 3 mg / 0.5 (3 ml) UD IH SCH ×6 (01:20→19:42)
[2018-07-23] MEDS: levETIRAcetam 500 mg/5ml UD cups PEG SCH ×2 (09:58→17:27)
--- NOTE | 2018-07-23 15:48 | CP.PCM.PN ---
<Dean Arrington - Last Filed: 07/23/18 15:44> Subjective - Date & Time of Evaluation Date of Evaluation: 07/23/18 Time of Evaluation: 09:30 - Subjective Subjective: Dean Arrington PGY1 Medicine Progress Note Patient seen and examined at bedside this morning. No acute events overnight. Patient resting comfortably in bed, appears to be in good spirits. Offers no new complaints today. Pending placement for [facility]. Objective - Vital Signs/Intake and Output Vital Signs (last 24 hours): Temp Pulse Resp BP Pulse Ox 97.6 F 84 20 131/82 96 07/21/18 17:22 07/21/18 17:22 07/21/18 17:22 07/21/18 06:00 07/21/18 17:22 Intake and Output: 07/23/18 07/23/18 06:59 18:59 Intake Total 955 Balance 955 - Medications Medications: Current Medications Acetaminophen (Tylenol 650 Mg Supp) 650 mg RC Q6H PRN PRN Reason: Fever >100.4 F Albuterol/Ipratropium (Duoneb 3 Mg/0.5 Mg (3 Ml) Ud) 3 ml IH [id number] NAVEEN Last Admin: 07/23/18 11:45 Dose: 3 ml Diphenhydramine HCl (Benadryl) 50 mg IVP Q6H PRN PRN Reason: Cough and congestion Levetiracetam (Keppra) 500 mg PEG BID NAVEEN Last Admin: 07/23/18 09:58 Dose: 500 mg Lorazepam (Ativan) 0.5 mg PEG Q12 NAVEEN; Protocol Last Admin: 07/23/18 09:58 Dose: 0.5 mg Lorazepam (Ativan) 0.5 mg PEG Q8 PRN; Protocol PRN Reason: Agitation Morphine Sulfate (Morphine) 2 mg IVP Q4H PRN PRN Reason: Pain, moderate (4-7) Last Admin: 07/22/18 17:28 Dose: 2 mg Racepinephrine (Racepinephrine 2.25% Inhl Soln) 0.5 ml IH [id number] PRN PRN Reason: for laryngeal bleeding Scopolamine (Transderm-Scop) 1 patch TD Q3D NAVEEN Last Admin: 07/22/18 11:22 Dose: 1 patch - Additional Findings Additional findings: - Head Exam Head Exam: NORMOCEPHALIC - Constitutional Appears: No Acute Distress - Head Exam Head Exam: ATRAUMATIC, NORMAL INSPECTION - Eye Exam Eye Exam: EOMI Pupil Exam: PERRL - ENT Exam ENT Exam: Mucous Membranes Moist Additional comments: dried blood appreciated in oropharynx, minimal - Neck Exam Additional comments: trach collar present, suctioning dark red fluid through suctioning tube - Respiratory Exam Respiratory Exam: Decreased Breath Sounds. absent: Accessory Muscle Use, Respiratory Distress - Cardiovascular Exam Cardiovascular Exam: REGULAR RHYTHM, +S1, +S2 - GI/Abdominal Exam GI & Abdominal Exam: Normal Bowel Sounds. absent: Guarding, Rigid Additional comments: PEG tube in place, non bleeding/oozing appreciated surrounding tube - Extremities Exam Extremities Exam: Normal Inspection. absent: Calf Tenderness - Neurological Exam Neurological Exam: Alert, Awake - Skin Skin Exam: Normal Color, Warm Assessment and Plan - Assessment and Plan (Free Text) Assessment: 73 yo M with PMH of oropharyngeal CA (s/p laryngectomy and tracheostomy), COPD, seizure disorder, and arthritis admitted for worsening SOB, secretions, and hemoptysis. Patient agreed to be in hospice care at this time. Patient is DNI/DNR. SW working with patient and his family to find local placement into [facility]/hospice. Plan: History of oropharyngeal SCC -continuing to work with SW to find placement locally per family wishes -continuing to focus on patient care at this time -morphine 2 mg PRN -ativan for agitation -fentanyl 25mcg transdermal -s/p trach collar, draining dark red blood in suctioning tube -tylenol, benadryl, ativan, scopolamine -tube feeding, s/p PEG tube Hemoptysis -Gross blood suctioning from oropharynx. H/H is downtrending last week -focus on comfort care, no transfusion at this time. -suction as needed, dark red fluid suctioning History of seizure disorder -continue keppra, switched to PO today History of COPD -continue karoline Patient seen and examined with attending, Dr. Lantigua <Edward Lantigua - Last Filed: 07/23/18 16:04> Objective - Vital Signs/Intake and Output Vital Signs (last 24 hours): Temp Pulse Resp BP Pulse Ox 97.6 F 84 20 131/82 96 07/21/18 17:22 07/21/18 17:22 07/21/18 17:22 07/21/18 06:00 07/21/18 17:22 Intake and Output: 07/23/18 07/23/18 06:59 18:59 Intake Total 955 Balance 955 - Medications Medications: Current Medications Acetaminophen (Tylenol 650 Mg Supp) 650 mg RC Q6H PRN PRN Reason: Fever >100.4 F Albuterol/Ipratropium (Duoneb 3 Mg/0.5 Mg (3 Ml) Ud) 3 ml IH [id number] NAVEEN Last Admin: 07/23/18 15:52 Dose: 3 ml Diphenhydramine HCl (Benadryl) 50 mg IVP Q6H PRN PRN Reason: Cough and congestion Levetiracetam (Keppra) 500 mg PEG BID [facility] Last Admin: 07/23/18 09:58 Dose: 500 mg Lorazepam (Ativan) 0.5 mg PEG Q12 NAVEEN; Protocol Last Admin: 07/23/18 09:58 Dose: 0.5 mg Lorazepam (Ativan) 0.5 mg PEG Q8 PRN; Protocol PRN Reason: Agitation Morphine Sulfate (Morphine) 2 mg IVP Q4H PRN PRN Reason: Pain, moderate (4-7) Last Admin: 07/22/18 17:28 Dose: 2 mg Racepinephrine (Racepinephrine 2.25% Inhl Soln) 0.5 ml IH [id number] PRN PRN Reason: for laryngeal bleeding Scopolamine (Transderm-Scop) 1 patch TD Q3D [facility] Last Admin: 07/22/18 11:22 Dose: 1 patch Attending/Attestation - Attestation I have personally seen and examined this patient.: Yes I have fully participated in the care of the patient.: Yes I have reviewed all pertinent clinical information, including history, physical exam and plan: Yes Notes (Text): No acute events overnight. Pt currently awaiting placement at hospice facility. Will change AED to PO via PEG tube as pt lost PIV access. Overall very poor prognosis 07/23/18 16:02
[2018-07-24] MEDS: Albuterol-Ipratrop 3 mg / 0.5 (3 ml) UD IH SCH ×7 (00:11→19:25)
[2018-07-24] MEDS: levETIRAcetam 500 mg/5ml UD cups PEG SCH ×2 (10:30→18:05)
--- NOTE | 2018-07-24 15:49 | CP.PCM.PN ---
Subjective - Date & Time of Evaluation Date of Evaluation: 07/24/18 Time of Evaluation: 12:00 - Subjective Subjective: Dean Arrington PGY1 Medicine Progress Note Patient seen and examined at bedside today No acute events overnight. Offers no new complaints today. Continuing to pend placement for [facility]/hospice. Objective - Vital Signs/Intake and Output Vital Signs (last 24 hours): Temp Pulse Resp BP Pulse Ox 97.6 F 84 20 131/82 96 07/21/18 17:22 07/21/18 17:22 07/21/18 17:22 07/21/18 06:00 07/21/18 17:22 Intake and Output: 07/24/18 07/24/18 06:59 18:59 Intake Total 800 Balance 800 - Medications Medications: Current Medications Acetaminophen (Tylenol 650 Mg Supp) 650 mg RC Q6H PRN PRN Reason: Fever >100.4 F Albuterol/Ipratropium (Duoneb 3 Mg/0.5 Mg (3 Ml) Ud) 3 ml IH [id number] NAVEEN Last Admin: 07/24/18 14:29 Dose: 3 ml Diphenhydramine HCl (Benadryl) 50 mg IVP Q6H PRN PRN Reason: Cough and congestion Levetiracetam (Keppra) 500 mg PEG BID NAVEEN Last Admin: 07/24/18 10:30 Dose: 500 mg Lorazepam (Ativan) 0.5 mg PEG Q12 NAVEEN; Protocol Last Admin: 07/24/18 10:30 Dose: 0.5 mg Lorazepam (Ativan) 0.5 mg PEG Q8 PRN; Protocol PRN Reason: Agitation Racepinephrine (Racepinephrine 2.25% Inhl Soln) 0.5 ml IH [id number] PRN PRN Reason: for laryngeal bleeding Scopolamine (Transderm-Scop) 1 patch TD Q3D NAVEEN Last Admin: 07/22/18 11:22 Dose: 1 patch - Additional Findings Additional findings: - Head Exam Head Exam: NORMOCEPHALIC - Constitutional Appears: No Acute Distress - Head Exam Head Exam: ATRAUMATIC, NORMAL INSPECTION - Eye Exam Eye Exam: EOMI Pupil Exam: PERRL - ENT Exam ENT Exam: Mucous Membranes Moist Additional comments: dried blood appreciated in oropharynx, minimal - Neck Exam Additional comments: trach collar present, suctioning dark red fluid through suctioning tube - Respiratory Exam Respiratory Exam: Decreased Breath Sounds. absent: Accessory Muscle Use, Respiratory Distress - Cardiovascular Exam Cardiovascular Exam: REGULAR RHYTHM, +S1, +S2 - GI/Abdominal Exam GI & Abdominal Exam: Normal Bowel Sounds. absent: Guarding, Rigid Additional comments: PEG tube in place, non bleeding/oozing appreciated surrounding tube - Extremities Exam Extremities Exam: Normal Inspection. absent: Calf Tenderness - Neurological Exam Neurological Exam: Alert, Awake - Skin Skin Exam: Normal Color, Warm Assessment and Plan - Assessment and Plan (Free Text) Assessment: 73 yo M with PMH of oropharyngeal CA (s/p laryngectomy and tracheostomy), COPD, seizure disorder, and arthritis admitted for worsening SOB, secretions, and hemoptysis. Patient agreed to be in hospice care at this time. Patient is DNI/DNR. Continuing to work with patient and family to find local placement into [facility]/hospice with social media developer. Plan: History of oropharyngeal SCC -working with social media developer to find [facility]/hospice placement -presently focusing on patient care at this time -morphine 2 mg PRN -fentanyl 25mcg transdermal -ativan for agitation -s/p trach collar, draining dark red blood in suctioning tube -tylenol, benadryl, ativan, scopolamine -tube feeding, s/p PEG tube Hemoptysis -Gross blood suctioning from oropharynx. H/H is downtrending last week -no transfusion at this time, focus on comfort care -suction as needed, dark red fluid suctioning History of seizure disorder -continue keppra PO History of COPD -continue karoline Patient seen and examined with attending, Dr. Heard
[2018-07-25] MEDS: Albuterol-Ipratrop 3 mg / 0.5 (3 ml) UD IH SCH ×7 (00:30→20:23)
[2018-07-25] MEDS: levETIRAcetam 500 mg/5ml UD cups PEG SCH ×2 (10:13→17:25)
--- NOTE | 2018-07-25 11:34 | CP.PCM.PN ---
<Dean Arrington - Last Filed: 07/25/18 11:30> Subjective - Date & Time of Evaluation Date of Evaluation: 07/25/18 Time of Evaluation: 08:30 - Subjective Subjective: Dean Arrington PGY1 Medicine Progress Note Patient seen and examined at bedside today. Offers no new complaints today. Patient resting comfortably. Continuing to work with social welfare administrator to find [facility] placement. Objective - Vital Signs/Intake and Output Vital Signs (last 24 hours): Temp Pulse Resp BP Pulse Ox 97.6 F 84 20 131/82 96 07/21/18 17:22 07/21/18 17:22 07/21/18 17:22 07/21/18 06:00 07/21/18 17:22 - Medications Medications: Current Medications Acetaminophen (Tylenol 650 Mg Supp) 650 mg RC Q6H PRN PRN Reason: Fever >100.4 F Albuterol/Ipratropium (Duoneb 3 Mg/0.5 Mg (3 Ml) Ud) 3 ml IH [id number] [facility] Last Admin: 07/25/18 08:37 Dose: 3 ml Diphenhydramine HCl (Benadryl) 50 mg IVP Q6H PRN PRN Reason: Cough and congestion Levetiracetam (Keppra) 500 mg PEG BID [facility] Last Admin: 07/25/18 10:13 Dose: 500 mg Lorazepam (Ativan) 0.5 mg PEG Q12 [facility]; Protocol Last Admin: 07/25/18 10:12 Dose: 0.5 mg Lorazepam (Ativan) 0.5 mg PEG Q8 PRN; Protocol PRN Reason: Agitation Racepinephrine (Racepinephrine 2.25% Inhl Soln) 0.5 ml IH [id number] PRN PRN Reason: for laryngeal bleeding Scopolamine (Transderm-Scop) 1 patch TD Q3D [facility] Last Admin: 07/25/18 10:14 Dose: 1 patch - Additional Findings Additional findings: - Head Exam Head Exam: NORMOCEPHALIC - Constitutional Appears: No Acute Distress - Head Exam Head Exam: ATRAUMATIC, NORMAL INSPECTION - Eye Exam Eye Exam: EOMI Pupil Exam: PERRL - ENT Exam ENT Exam: Mucous Membranes Moist - Neck Exam Additional comments: trach collar present - Respiratory Exam Respiratory Exam: Decreased Breath Sounds. absent: Accessory Muscle Use, Respiratory Distress - Cardiovascular Exam Cardiovascular Exam: REGULAR RHYTHM, +S1, +S2 - GI/Abdominal Exam GI & Abdominal Exam: Normal Bowel Sounds. absent: Guarding, Rigid Additional comments: PEG tube in place - Extremities Exam Extremities Exam: Normal Inspection. absent: Calf Tenderness - Neurological Exam Neurological Exam: Alert, Awake - Skin Skin Exam: Normal Color, Warm Assessment and Plan - Assessment and Plan (Free Text) Assessment: 73 yo M with PMH of oropharyngeal CA (s/p laryngectomy and tracheostomy), COPD, seizure disorder, and arthritis admitted for worsening SOB, secretions, and hemoptysis. Patient agreed to be in hospice care at this time. Patient is DNI/DNR. Continuing to work with social welfare administrator to find placement for [facility]. Plan: History of oropharyngeal SCC -continuing to work with social welfare administrator to find [facility] placement -focusing on patient care at this time, patient denies any complaints or pain -morphine 2 mg PRN -fentanyl 25mcg transdermal -ativan for agitation -s/p trach collar, draining dark red blood in suctioning tube -tylenol, benadryl, ativan, scopolamine -tube feeding, s/p PEG tube Hemoptysis -H/H is downtrending last week, no transfusion at this time, focus on comfort care -suction as needed, dark red fluid suctioning History of seizure disorder -continue keppra PO History of COPD -continue duonebs Patient seen and examined with attending, Dr. Radha Cleveland <Radha Cleveland R - Last Filed: 07/25/18 22:12> Objective - Vital Signs/Intake and Output Vital Signs (last 24 hours): Temp Pulse Resp BP Pulse Ox 97.6 F 84 20 131/82 96 07/21/18 17:22 07/21/18 17:22 07/21/18 17:22 07/21/18 06:00 07/21/18 17:22 Intake and Output: 07/25/18 07/26/18 18:59 06:59 Intake Total 860 Output Total 700 Balance 160 - Medications Medications: Current Medications Acetaminophen (Tylenol 650 Mg Supp) 650 mg RC Q6H PRN PRN Reason: Fever >100.4 F Albuterol/Ipratropium (Duoneb 3 Mg/0.5 Mg (3 Ml) Ud) 3 ml IH [id number] [facility] Last Admin: 07/25/18 20:23 Dose: 3 ml Diphenhydramine HCl (Benadryl) 50 mg IVP Q6H PRN PRN Reason: Cough and congestion Levetiracetam (Keppra) 500 mg PEG BID [facility] Last Admin: 07/25/18 17:25 Dose: 500 mg Lorazepam (Ativan) 0.5 mg PEG Q12 [facility]; Protocol Last Admin: 07/25/18 22:07 Dose: 0.5 mg Lorazepam (Ativan) 0.5 mg PEG Q8 PRN; Protocol PRN Reason: Agitation Racepinephrine (Racepinephrine 2.25% Inhl Soln) 0.5 ml IH [id number] PRN PRN Reason: for laryngeal bleeding Scopolamine (Transderm-Scop) 1 patch TD Q3D [facility] Last Admin: 07/25/18 10:14 Dose: 1 patch Attending/Attestation - Attestation I have personally seen and examined this patient.: Yes I have fully participated in the care of the patient.: Yes I have reviewed all pertinent clinical information, including history, physical exam and plan: Yes Notes (Text): Patient seen and examined by me with resident at 10:20AM on 07/25/18. Case including HPI, physical exam, and assessment and plan discussed with resident. Agree with above with following additions/corrections. 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 Patient is awake and alert. Denies any pain. No shortness of breath. No na usea, vomiting, or abdominal pain. No chest pain. Physical exam: General: Lying in bed in no acute distress, cachectic appearing HEENT: Normocephalic atraumatic. Pupils equal reactive. No scleral icterus. Oropharynx is pink and moist. Positive trach collar in place, no signs of infection. Cardiovascular: Normal S1, S2. No murmurs, rubs, or gallops appreciated Pulmonary: Normal respiratory effort. Decreased breath sounds. No rhonchi, rales, or wheezing appreciated. Gastrointestinal: Soft, nondistended. Nontender. Positive bowel sounds all 4 quadrants, no guarding. Peg tube in place with no signs of infection. Musculoskeletal: Moves all extremities, no calf tenderness. No edema appreciated Central nervous system: AAOx3 Dermatologic: Skin warm and dry. 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 1. Oral pharyngeal cancer. Worsening of tumor seen on CT neck. Hemoptysis appears to be resolved. Continue with sucitioning as needed. Continue inpatient hospice care. Continue with comfort measures. Continue Ativan as needed. Continue bendaryl as needed. Continue scoplamine patch every 3 days. Palliative care following, recommendations appreciated 2. History fo seizures. Continue keppra via PEG 3. Anemia. Secondary to active bleeding. No blood transfusions as patient requested hospice care and no transfusion. No labs being drawn. 4. COPD. Continue on nebulizer treatments 5. Patient is DNR/DNI, Hospice. Case was discussed in detail with the patient. All questions answered.
[2018-07-26] MEDS: Albuterol-Ipratrop 3 mg / 0.5 (3 ml) UD IH SCH ×8 (00:17→23:55)
[2018-07-26 07:00] VITALS: BP 113/67; PULSE 100; TEMP 98.3
[2018-07-26] MEDS: levETIRAcetam 500 mg/5ml UD cups PEG SCH ×2 (10:03→17:27)
--- NOTE | 2018-07-26 14:35 | CP.PCM.PN ---
<Ann Gatica - Last Filed: 07/26/18 18:06> Subjective - Date & Time of Evaluation Date of Evaluation: 07/26/18 Time of Evaluation: 10:00 - Subjective Subjective: Ann Gatica, PGY2, Medicine Progress Note for Dr Roe: Patient seen and examined at bedside. Overnight, patient removed trach, put back in by nursing staff. This AM, patient resting in bed comfortably. Patient reports mild bilateral knee pain. Otherwise denies pain, sob. Objective - Vital Signs/Intake and Output Vital Signs (last 24 hours): Temp Pulse Resp BP Pulse Ox 98.3 F 100 H 20 113/67 96 07/26/18 06:00 07/26/18 06:00 07/26/18 06:00 07/26/18 06:00 07/26/18 06:00 Intake and Output: 07/26/18 07/26/18 06:59 18:59 Intake Total 0 Balance 0 - Medications Medications: Current Medications Acetaminophen (Tylenol 650 Mg Supp) 650 mg RC Q6H PRN PRN Reason: Fever >100.4 F Albuterol/Ipratropium (Duoneb 3 Mg/0.5 Mg (3 Ml) Ud) 3 ml IH [id number] [facility] Last Admin: 07/26/18 11:00 Dose: 3 ml Diphenhydramine HCl (Benadryl) 50 mg IVP Q6H PRN PRN Reason: Cough and congestion Levetiracetam (Keppra) 500 mg PEG BID [facility] Last Admin: 07/26/18 10:03 Dose: 500 mg Lorazepam (Ativan) 0.5 mg PEG Q12 [facility]; Protocol Last Admin: 07/26/18 10:02 Dose: 0.5 mg Lorazepam (Ativan) 0.5 mg PEG Q8 PRN; Protocol PRN Reason: Agitation Racepinephrine (Racepinephrine 2.25% Inhl Soln) 0.5 ml IH [id number] PRN PRN Reason: for laryngeal bleeding Scopolamine (Transderm-Scop) 1 patch TD Q3D [facility] Last Admin: 07/25/18 10:14 Dose: 1 patch - Constitutional Appears: Older Than Stated Age, Cachectic, Chronically Ill - Head Exam Head Exam: ATRAUMATIC - Eye Exam Eye Exam: EOMI, PERRL. absent: Conjunctival injection, Nystagmus, Scleral icterus Pupil Exam: NORMAL ACCOMODATION, PERRL. absent: Irregular, Miosis, Unequal - ENT Exam ENT Exam: Mucous Membranes Dry Additional comments: + trach in place, patient suctioning self - Neck Exam Neck Exam: Full ROM - Respiratory Exam Respiratory Exam: Decreased Breath Sounds. absent: Rales, Rhonchi, Wheezes, Respiratory Distress - Cardiovascular Exam Cardiovascular Exam: +S1, +S2. absent: Murmur - GI/Abdominal Exam GI & Abdominal Exam: Soft, Normal Bowel Sounds. absent: Tenderness, Organomegaly Additional comments: + PEG tube in place - Extremities Exam Extremities Exam: absent: Calf Tenderness, Pedal Edema - Back Exam Back Exam: NORMAL INSPECTION - Neurological Exam Neurological Exam: Alert, Awake, Oriented x3 - Psychiatric Exam Psychiatric exam: Normal Mood - Skin Skin Exam: Normal Color, Warm Assessment and Plan - Assessment and Plan (Free Text) Assessment: 73 year old male with PMH oropharyngeal CA (s/p laryngectomy and tracheostomy), COPD, seizure disorder, and arthritis, initially admitted admitted for worsening SOB, secretions, and hemoptysis. Patient agreed to be in hospice care at this time. Currently, awaiting placement for [facility]: Knee pain: - started lidoderm patches b/l. Discussed with inpatient pharmacy - diclofenac patches or nsaid patches not available. History of oropharyngeal SCC: - continuing to work with social science research assistant to find [facility] placement - focusing on patient care at this time, patient denies any complaints or pain - morphine 1 mg PRN - ativan for agitation - s/p trach collar, draining dark red blood in suctioning tube -t ylenol, benadryl, ativan, scopolamine - tube feeding, s/p PEG tube History of seizure disorder: - continue keppra PO History of COPD: - continue karoline Patient seen and examined with attending, Dr Roe. <Jesu Roe - Last Filed: 07/27/18 06:44> Objective - Vital Signs/Intake and Output Vital Signs (last 24 hours): Temp Pulse Resp BP Pulse Ox 98.3 F 100 H 20 113/67 96 07/26/18 06:00 07/26/18 06:00 07/26/18 06:00 07/26/18 06:00 07/26/18 06:00 - Medications Medications: Current Medications Acetaminophen (Tylenol 650 Mg Supp) 650 mg RC Q6H PRN PRN Reason: Fever >100.4 F Albuterol/Ipratropium (Duoneb 3 Mg/0.5 Mg (3 Ml) Ud) 3 ml IH [id number] [facility] Last Admin: 07/27/18 03:42 Dose: 3 ml Diphenhydramine HCl (Benadryl) 50 mg IVP Q6H PRN PRN Reason: Cough and congestion Levetiracetam (Keppra) 500 mg PEG BID [facility] Last Admin: 07/26/18 17:27 Dose: 500 mg Lidocaine (Lidoderm) 2 ea TD DAILY [facility] Lorazepam (Ativan) 0.5 mg PEG Q12 [facility]; Protocol Last Admin: 07/26/18 22:12 Dose: 0.5 mg Lorazepam (Ativan) 0.5 mg PEG Q8 PRN; Protocol PRN Reason: Agitation Morphine Sulfate (Morphine) 1 mg IVP Q6 PRN PRN Reason: Pain, severe (8-10) Racepinephrine (Racepinephrine 2.25% Inhl Soln) 0.5 ml IH [id number] PRN PRN Reason: for laryngeal bleeding Scopolamine (Transderm-Scop) 1 patch TD Q3D [facility] Last Admin: 07/25/18 10:14 Dose: 1 patch Attending/Attestation - Attestation I have personally seen and examined this patient.: Yes I have fully participated in the care of the patient.: Yes I have reviewed all pertinent clinical information, including history, physical exam and plan: Yes
[2018-07-26] MEDS ORDERED: Morphine 2 mg/ml ISec IVP PRN (18:15)
[2018-07-27] MEDS: Albuterol-Ipratrop 3 mg / 0.5 (3 ml) UD IH SCH ×5 (03:42→20:45)
[2018-07-27] MEDS: levETIRAcetam 500 mg/5ml UD cups PEG SCH ×2 (10:22→17:22)
[2018-07-27] MEDS: Lidocaine 5% Patch TD SCH (10:22)
--- NOTE | 2018-07-27 14:31 | CP.PCM.PN ---
<Natalie Alvarez - Last Filed: 07/27/18 16:27> Subjective - Date & Time of Evaluation Date of Evaluation: 07/27/18 Time of Evaluation: 14:28 - Subjective Subjective: Natalie Alvarez, PGY-1, Medicine Progress Note for Dr Lang Patient seen and examined this morning at bedside. This AM, patient resting in bed comfortably. Patient reports mild bilateral knee pain. Otherwise denies pain, sob. Pt denies any other acute complaints at this time. Objective - Vital Signs/Intake and Output Vital Signs (last 24 hours): Temp Pulse Resp BP Pulse Ox 98.3 F 100 H 20 113/67 96 07/26/18 06:00 07/26/18 06:00 07/26/18 06:00 07/26/18 06:00 07/26/18 06:00 - Medications Medications: Current Medications Acetaminophen (Tylenol 650 Mg Supp) 650 mg RC Q6H PRN PRN Reason: Fever >100.4 F Albuterol/Ipratropium (Duoneb 3 Mg/0.5 Mg (3 Ml) Ud) 3 ml IH [id number] [facility] Last Admin: 07/27/18 11:05 Dose: 3 ml Diphenhydramine HCl (Benadryl) 50 mg IVP Q6H PRN PRN Reason: Cough and congestion Fentanyl (Duragesic) 1 patch TD Q72H [facility] Last Admin: 07/27/18 12:02 Dose: 1 patch Levetiracetam (Keppra) 500 mg PEG BID [facility] Last Admin: 07/27/18 10:22 Dose: 500 mg Lidocaine (Lidoderm) 2 ea TD DAILY [facility] Last Admin: 07/27/18 10:22 Dose: 2 ea Lorazepam (Ativan) 0.5 mg PEG Q12 [facility]; Protocol Last Admin: 07/27/18 10:21 Dose: 0.5 mg Lorazepam (Ativan) 0.5 mg PEG Q8 PRN; Protocol PRN Reason: Agitation Morphine Sulfate (Morphine) 1 mg IVP Q6 PRN PRN Reason: Pain, severe (8-10) Racepinephrine (Racepinephrine 2.25% Inhl Soln) 0.5 ml IH [id number] PRN PRN Reason: for laryngeal bleeding Scopolamine (Transderm-Scop) 1 patch TD Q3D [facility] Last Admin: 07/25/18 10:14 Dose: 1 patch - Constitutional Appears: Cachectic, Chronically Ill - Head Exam Head Exam: ATRAUMATIC, NORMAL INSPECTION, NORMOCEPHALIC - Eye Exam Eye Exam: EOMI, Normal appearance, PERRL - ENT Exam Additional comments: + trach in place, patient suctioning self - Respiratory Exam Respiratory Exam: Decreased Breath Sounds, NORMAL BREATHING PATTERN. absent: Rales, Rhonchi, Wheezes - Cardiovascular Exam Cardiovascular Exam: +S1, +S2. absent: Gallop, Rubs - GI/Abdominal Exam GI & Abdominal Exam: Soft, Normal Bowel Sounds. absent: Tenderness Additional comments: Peg tube in place - Extremities Exam Extremities Exam: absent: Calf Tenderness, Pedal Edema - Neurological Exam Neurological Exam: Alert, Awake, Oriented x3 - Psychiatric Exam Psychiatric exam: Normal Mood - Skin Skin Exam: Dry, Normal Color, Warm Assessment and Plan - Assessment and Plan (Free Text) Assessment: 73 year old male with PMH oropharyngeal CA (s/p laryngectomy and tracheostomy), COPD, seizure disorder, and arthritis, initially admitted admitted for worsening SOB, secretions, and hemoptysis. Patient agreed to be in hospice care at this time. Currently, awaiting placement for [facility]. Plan: Knee pain: - started lidoderm patches b/l. Discussed with inpatient pharmacy - diclofenac patches or nsaid patches not available. History of oropharyngeal SCC: - continuing to work with group social worker to find [facility] placement - focusing on patient care at this time, patient denies any complaints or pain - morphine 1 mg PRN - ativan for agitation - s/p trach collar, draining dark red blood in suctioning tube - tylenol, benadryl, ativan, scopolamine - Fentanyl patch - tube feeding, s/p PEG tube History of seizure disorder: - continue keppra PO History of COPD: - continue duonebs Patient seen and examined with attending, Dr Rickey Alvarez, DO Internal Medicine Resident PGY-1 <Dejah Lang - Last Filed: 07/30/18 15:10> Objective - Vital Signs/Intake and Output Vital Signs (last 24 hours): Temp Pulse Resp BP Pulse Ox 98.3 F 100 H 20 113/67 96 07/26/18 06:00 07/26/18 06:00 07/26/18 06:00 07/26/18 06:00 07/26/18 06:00 Attending/Attestation - Attestation I have personally seen and examined this patient.: Yes I have fully participated in the care of the patient.: Yes I have reviewed all pertinent clinical information, including history, physical exam and plan: Yes Notes (Text): 07/30/18 15:10 Medical record note made by the resident after discussion with my direction and input after the patient was personally seen and examined by me. I have reviewed the chart and agree that the record accurately reflects by personal performance of the history, physical exam, data review, and medical decision-making, in the course for the patient. I have also personally directed the plan of care. Patient is on hospice and palliative care measures. Continue supportive treatment. Prognosis is guarded.
[2018-07-28] MEDS: Albuterol-Ipratrop 3 mg / 0.5 (3 ml) UD IH SCH ×6 (00:45→20:01)
[2018-07-28] MEDS: levETIRAcetam 500 mg/5ml UD cups PEG SCH ×2 (10:50→17:32)
[2018-07-28] MEDS: Lidocaine 5% Patch TD SCH (10:51)
--- NOTE | 2018-07-28 14:43 | CP.PCM.PN ---
<Natalie Alvarez - Last Filed: 07/28/18 14:38> Subjective - Date & Time of Evaluation Date of Evaluation: 07/28/18 Time of Evaluation: 14:38 - Subjective Subjective: Natalie Alvarez, PGY-1, Medicine Progress Note for Dr Lang Patient seen and examined this morning at bedside. This AM, patient resting in bed comfortably and denies any events overnight. Patient reports that his knee pain is improved now compared to yesterday. Otherwise denies pain, sob. Pt denies any other acute complaints at this time. Objective - Vital Signs/Intake and Output Vital Signs (last 24 hours): Temp Pulse Resp BP Pulse Ox 98.3 F 100 H 20 113/67 96 07/26/18 06:00 07/26/18 06:00 07/26/18 06:00 07/26/18 06:00 07/26/18 06:00 Intake and Output: 07/28/18 07/28/18 06:59 18:59 Intake Total 951 Output Total 450 Balance 501 - Medications Medications: Current Medications Acetaminophen (Tylenol 650 Mg Supp) 650 mg RC Q6H PRN PRN Reason: Fever >100.4 F Albuterol/Ipratropium (Duoneb 3 Mg/0.5 Mg (3 Ml) Ud) 3 ml IH [id number] [facility] Last Admin: 07/28/18 11:14 Dose: 3 ml Diphenhydramine HCl (Benadryl) 50 mg IVP Q6H PRN PRN Reason: Cough and congestion Fentanyl (Duragesic) 1 patch TD Q72H [facility] Last Admin: 07/27/18 12:02 Dose: 1 patch Levetiracetam (Keppra) 500 mg PEG BID [facility] Last Admin: 07/28/18 10:50 Dose: 500 mg Lidocaine (Lidoderm) 2 ea TD DAILY [facility] Last Admin: 07/28/18 10:51 Dose: 2 ea Lorazepam (Ativan) 0.5 mg PEG Q12 [facility]; Protocol Last Admin: 07/28/18 10:50 Dose: 0.5 mg Lorazepam (Ativan) 0.5 mg PEG Q8 PRN; Protocol PRN Reason: Agitation Morphine Sulfate (Morphine) 1 mg IVP Q6 PRN PRN Reason: Pain, severe (8-10) Racepinephrine (Racepinephrine 2.25% Inhl Soln) 0.5 ml IH [id number] PRN PRN Reason: for laryngeal bleeding Scopolamine (Transderm-Scop) 1 patch TD Q3D [facility] Last Admin: 07/25/18 10:14 Dose: 1 patch - Constitutional Appears: Well, Non-toxic, No Acute Distress - Head Exam Head Exam: ATRAUMATIC, NORMAL INSPECTION, NORMOCEPHALIC - Eye Exam Eye Exam: EOMI, Normal appearance, PERRL - ENT Exam Additional comments: Trach in place, pt suctioning trach himself. - Respiratory Exam Respiratory Exam: Decreased Breath Sounds, NORMAL BREATHING PATTERN. absent: Rales, Rhonchi, Wheezes - Cardiovascular Exam Cardiovascular Exam: RRR, +S1, +S2. absent: Gallop, Rubs, Murmur - GI/Abdominal Exam GI & Abdominal Exam: Soft, Normal Bowel Sounds. absent: Tenderness Additional comments: PEG tube in place - Extremities Exam Extremities Exam: absent: Calf Tenderness, Pedal Edema - Neurological Exam Neurological Exam: Alert, Awake, Oriented x3 - Psychiatric Exam Psychiatric exam: Normal Mood - Skin Skin Exam: Dry, Intact, Warm Assessment and Plan - Assessment and Plan (Free Text) Assessment: 73 year old male with PMH oropharyngeal CA (s/p laryngectomy and tracheostomy), COPD, seizure disorder, and arthritis, initially admitted admitted for worsening SOB, secretions, and hemoptysis. Patient agreed to be in hospice care at this time. Currently, awaiting placement for [facility]. Plan: B/L Knee pain: Improving - started lidoderm patches placed b/l. Discussed with inpatient pharmacy - diclofenac patches or nsaid patches not available. History of oropharyngeal SCC: - continuing to work with social sciences instructor to find [facility] placement - focusing on patient care at this time, patient denies any complaints or pain - morphine 1 mg PRN - ativan for agitation - s/p trach collar, draining dark red blood in suctioning tube - tylenol, benadryl, ativan, scopolamine - Fentanyl patch - tube feeding, s/p PEG tube History of seizure disorder: - continue keppra PO History of COPD: - continue duonebs Patient seen and examined with attending, Dr Rickey Alvarez, DO Internal Medicine Resident PGY-1 <Dejah Lang - Last Filed: 07/30/18 15:10> Objective - Vital Signs/Intake and Output Vital Signs (last 24 hours): Temp Pulse Resp BP Pulse Ox 98.3 F 100 H 20 113/67 96 07/26/18 06:00 07/26/18 06:00 07/26/18 06:00 07/26/18 06:00 07/26/18 06:00 Attending/Attestation - Attestation I have personally seen and examined this patient.: Yes I have fully participated in the care of the patient.: Yes I have reviewed all pertinent clinical information, including history, physical exam and plan: Yes Notes (Text): 07/30/18 15:09 Medical record note made by the resident after discussion with my direction and input after the patient was personally seen and examined by me. I have reviewed the chart and agree that the record accurately reflects by personal performance of the history, physical exam, data review, and medical decision-making, in the course for the patient. I have also personally directed the plan of care. Patient is on hospice and palliative care measures. Continue supportive treatment. Prognosis is guarded.
[2018-07-29] MEDS: Albuterol-Ipratrop 3 mg / 0.5 (3 ml) UD IH SCH ×5 (00:30→15:25)
[2018-07-29] MEDS: Lidocaine 5% Patch TD SCH (10:21)
[2018-07-29] MEDS: levETIRAcetam 500 mg/5ml UD cups PEG SCH ×2 (10:22→17:34)
--- NOTE | 2018-07-29 12:51 | CP.PCM.DIS ---
<Annie Mccollum - Last Filed: 07/29/18 21:28> Provider - Provider Date of Admission: 07/15/18 13:27 Attending physician: Dejah Lang MD Primary care physician: No Family Provider Consults: Palliative Care Consult: Merary Mathur Time Spent in preparation of Discharge (in minutes): 60 Hospital Course - Hospital Course Hospital Course: PGY1 Discharge Summary and Hospital Course for Dr. 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 Subsequently in 2016 patient was found to have recurrence of throat carcinoma. He presented most recently in 05/2018 with large soft tissue mass in oropharyngeal region; during this visit patient received PEG tube placement. Patient presented to [facility] ED 07/02 with complaints of SOB, hemoptysis as well as worsening bloody secretions over the past month. Patient reports hemoptysis as light pink tinged mucopurlent sputum and denies overtly bloody or clotted sputum. Patient reported his SOB feels as if he is not getting enough air through his tracheostomy. Patient reported he sees ENT Dr. Tapia for tracheostomy management. who is admitted under [facility] services for pain and symptom management. Please see patient's chart for complete summary and details. During hospital course, patient reported he currently does not want radiation/chemotherapy at this time. Thus, patient's care was focused on comfort care with continuous morphine drip for pain control. He was given tylenol, benadryl, ativan, duonebs, keppra, scopolamine and feedings through tube. Ativan as needed. Patient was not transfused in light of anemia due to focus on comfort care. The patient is bed bound weak. He is scheduled to transfer to [facility] facility. At time of transfer morphine will be discontinued and fentanyl 25mcg will be given for pain control. Please see patient's chart for complete summary and details. Discharge Medications Fentanyl 25mcg patch for pain Ativan 0.5 mg twice daily for restlessness Racepinephrine 2.25% IH as needed for layngeal bleeding Trach collor, humidified 02 6 liters > Suction as needed Glucerna 2.1 enteral feeding three times daily Patient seen and case discussed in detail with Dr. Rickey Mccollum PGY1 Discharge Exam - Additional Findings Additional findings: - Constitutional Appears: Well, Non-toxic, No Acute Distress - Head Exam Head Exam: ATRAUMATIC, NORMAL INSPECTION, NORMOCEPHALIC - Eye Exam Eye Exam: EOMI, Normal appearance, PERRL - ENT Exam Additional comments: Trach in place, pt suctioning trach himself. - Respiratory Exam Respiratory Exam: Decreased Breath Sounds, NORMAL BREATHING PATTERN. absent: Rales, Rhonchi, Wheezes - Cardiovascular Exam Cardiovascular Exam: RRR, +S1, +S2. absent: Gallop, Rubs, Murmur - GI/Abdominal Exam GI & Abdominal Exam: Soft, Normal Bowel Sounds. absent: Tenderness Additional comments: PEG tube in place - Extremities Exam Extremities Exam: absent: Calf Tenderness, Pedal Edema - Neurological Exam Neurological Exam: Alert, Awake, Oriented x3 - Psychiatric Exam Psychiatric exam: Normal Mood - Skin Skin Exam: Dry, Intact, Warm Discharge Plan - Follow Up Plan Condition: GOOD Disposition: HOSPICE - MEDICAL FACILITY Instructions: Tracheotomy (DC), Palliative Care Additional Instructions: Transfer orders: 1. Fentanyl 25mcg patch for paijn 2. Ativan 0.5 mg twice daily for restlessness and PRN Q8 for restlessness 3. Racepinephrine 2.25% IH as needed for layngeal bleeding 4. Trach collor, humidified 02 6 liters> Suction as needed 5. Glucerna 2.1 enteral feeding three times daily Thank you for allowing us to take care of you. <Dejah Lang - Last Filed: 07/30/18 15:12> Provider - Provider Date of Admission: 07/15/18 13:27 Attending physician: Dejah Lang MD Attending/Attestation - Attestation I have personally seen and examined this patient.: Yes I have fully participated in the care of the patient.: Yes I have reviewed all pertinent clinical information, including history, physical exam and plan: Yes Notes (Text): 07/30/18 15:11 Medical record note made by the resident after discussion with my direction and input after the patient was personally seen and examined by me. I have reviewed the chart and agree that the record accurately reflects by personal performance of the history, physical exam, data review, and medical decision-making, in the course for the patient. I have also personally directed the plan of care.
--- NOTE | 2018-07-29 13:01 | CP.PCM.PN ---
Subjective - Date & Time of Evaluation Date of Evaluation: 07/29/18 Time of Evaluation: 12:00 - Subjective Subjective: lethargic, no acute distress Objective - Vital Signs/Intake and Output Vital Signs (last 24 hours): Temp Pulse Resp BP Pulse Ox 98.3 F 100 H 20 113/67 96 07/26/18 06:00 07/26/18 06:00 07/26/18 06:00 07/26/18 06:00 07/26/18 06:00 Intake and Output: 07/29/18 07/29/18 06:59 18:59 Intake Total 237 Output Total 125 Balance 112 - Medications Medications: Current Medications Acetaminophen (Tylenol 650 Mg Supp) 650 mg RC Q6H PRN PRN Reason: Fever >100.4 F Albuterol/Ipratropium (Duoneb 3 Mg/0.5 Mg (3 Ml) Ud) 3 ml IH [id number] [facility] Last Admin: 07/29/18 11:37 Dose: 3 ml Diphenhydramine HCl (Benadryl) 50 mg IVP Q6H PRN PRN Reason: Cough and congestion Fentanyl (Duragesic) 1 patch TD Q72H [facility] Last Admin: 07/27/18 12:02 Dose: 1 patch Levetiracetam (Keppra) 500 mg PEG BID [facility] Last Admin: 07/29/18 10:22 Dose: 500 mg Lidocaine (Lidoderm) 2 ea TD DAILY [facility] Last Admin: 07/29/18 10:21 Dose: 2 ea Lorazepam (Ativan) 0.5 mg PEG Q12 NAVEEN; Protocol Last Admin: 07/29/18 10:22 Dose: 0.5 mg Lorazepam (Ativan) 0.5 mg PEG Q8 PRN; Protocol PRN Reason: Agitation Morphine Sulfate (Morphine) 1 mg IVP Q6 PRN PRN Reason: Pain, severe (8-10) Racepinephrine (Racepinephrine 2.25% Inhl Soln) 0.5 ml IH [id number] PRN PRN Reason: for laryngeal bleeding Scopolamine (Transderm-Scop) 1 patch TD Q3D [facility] Last Admin: 07/28/18 10:00 Dose: 1 patch - Constitutional Appears: Cachectic, Chronically Ill - Eye Exam Eye Exam: Normal appearance - ENT Exam ENT Exam: Mucous Membranes Moist - Neck Exam Additional comments: trach patent, thick secretions - Respiratory Exam Respiratory Exam: Decreased Breath Sounds, Rhonchi - Cardiovascular Exam Cardiovascular Exam: REGULAR RHYTHM, +S1, +S2 - GI/Abdominal Exam GI & Abdominal Exam: Soft, Diminished Bowel Sounds - Extremities Exam Extremities Exam: Full ROM - Neurological Exam Neurological Exam: Alert - Skin Skin Exam: Dry, Pallor Assessment and Plan - Assessment and Plan (Free Text) Assessment: 73 year old male with history of layngeal cancer, laryngeal bleeding, anemia, respiratory failure who is admitted under [facility] services for pain and sympt om management The patient is bed bound weak. He is scheduled to transfer to [facility] facility later today. Plan: Fentanyl 25mcg patch for paijn Ativan 0.5 mg twice daily for restlessness Racepinephrine 2.25% IH as needed for layngeal bleeding Trach collor, humidified 02 6 liters> Suction as needed Glucerna 2.1 enteral feeding three times daily
== END 2018-07-29 21:20 | disposition hospice, inpatient (51) | DRG 147 ==
LOC: 3RSO 13:27
PROVIDERS: ADMIT Internal Medicine; ATTEND Internal Medicine
DX: C10.9 Malignant neoplasm of oropharynx, unspecified (principal); R04.2 Hemoptysis; R64 Cachexia; Z51.5 Encounter for palliative care; Z66 Do not resuscitate; J44.9 Chronic obstructive pulmonary disease, unspecified; G40.909 Epilepsy, unspecified, not intractable, without status epilepticus; D64.9 Anemia, unspecified; I10 Essential (primary) hypertension; Z93.0 Tracheostomy status; Z68.24 Body mass index [BMI] 24.0-24.9, adult; Z74.01 Bed confinement status; Z92.3 Personal history of irradiation; Z92.21 Personal history of antineoplastic chemotherapy; Z93.1 Gastrostomy status; Z85.21 Personal history of malignant neoplasm of larynx; Z87.891 Personal history of nicotine dependence